=== PATIENT | female | born 1940 | race Caucasian/White ===

== ENCOUNTER 2016-06-13 09:22 | Observation (INO) | payer MEDICARE, MEDICAID ==
[2016-06-13 10:22] LABS: HEMATOCRIT 36.4 % (36.0-47.0); HEMOGLOBIN 12.4 g/dL (12.0-15.5); HGB HCT DIFFERENCE 0.8; MEAN CORPUSCULAR HGB CONC 34.1 g/dL (32.0-36.0); MEAN CORPUSCULAR VOLUME 82 fl (80-97); RED BLOOD COUNT 4.43 10^6/uL (3.72-5.28); RED CELL DISTRIBUTION WIDTH 13.6 % (11.5-14.0); WHITE BLOOD COUNT 8.3 10^3/uL (4.0-10.5)
[2016-06-13 10:40] LABS: ALANINE AMINOTRANSFERASE 38 U/L (9-52); ALBUMIN 4.3 g/dL (3.5-5.0); ALKALINE PHOSPHATASE 52 U/L (38-126); ANION GAP 13 (5-19); ASPARTATE AMINO TRANSFERASE 28 U/L (14-36); BILIRUBIN,TOTAL 0.7 mg/dL (0.2-1.3); BLOOD UREA NITROGEN 10 mg/dL (7-20); CARBON DIOXIDE 25 mmol/L (22-30); CHLORIDE 99 mmol/L (98-107); GLUCOSE 102 mg/dL (75-110); SODIUM 136.8 mmol/L (137-145); TOTAL PROTEIN 6.9 g/dL (6.3-8.2)
[2016-06-13 10:46] LABS: POTASSIUM 2.8 mmol/L (3.6-5.0)
[2016-06-13] MEDS ORDERED: ENOXAPARIN SODIUM INJ 40 MG/0.4 ML DISP.SYRIN SUBCUT ONE (11:00)
[2016-06-13] MEDS: POTASSI CL 40 MEQ/NS 1L 1,000 ML IV PRN ×2 (11:56→22:31)
[2016-06-13] MEDS ORDERED: (PENDING PHARMACY ID) (Ranitidine Hcl [Zantac] 300 MG) PO SCH (14:30)
[2016-06-13] MEDS ORDERED: (PENDING PHARMACY ID) (Valsartan/Hydrochlorothiazide [Diovan Hct 160-25 Mg Tablet] 1 TAB) PO SCH (14:30)
[2016-06-13] MEDS ORDERED: GABAPENTIN 300 MG CAPSULE PO ONE (15:00)
--- NOTE | 2016-06-13 15:16 | PDOC H&P ---
History of Present Illness Admission Date/PCP: 06/13/16 09:22 ROSLYN TOLEDO MD History of Present Illness: ALANA ROMERO is a 75 year old female, she came to the office today without any schedule appointment, she complained of diarrhea and vomiting for the last 2 days. She said she is not able to keep any food down. She was admitted for observation. The blood work revealed hypokalemia with a serum potassium of 2.8. Past Medical History Cardiac Medical History: Reports: Hyperlipidema, Hypertension Pulmonary Medical History: Reports: Chronic Obstructive Pulmonary Disease (COPD) Neurological Medical History: Denies: Seizures Endocrine Medical History: Reports: Diabetes Mellitus Type 2 - "borderline" Malignancy Medical History: Reports: Cervical Cancer - uterine cancer GI Medical History: Reports: Gastroesophageal Reflux Disease Musculoskeltal Medical History: Reports: Arthritis - back, shoulders, and neck Psychiatric Medical History: Reports: Depression - Major Depressive Disorder Past Surgical History Past Surgical History: Reports: Section, Hysterectomy, Orthopedic Surgery, Tubal Ligation Social History Smoking Status: Never Smoker Frequency of Alcohol Use: None Hx Recreational Drug Use: No Drugs: None Hx Prescription Drug Abuse: No Family History Family History: Reviewed & Not Pertinent Parental Family History Reviewed: Yes Children Family History Reviewed: Yes Sibling(s) Family History Reviewed.: Yes Medication/Allergy Home Medications: Valsartan/Hydrochlorothiazide [Diovan Hct 160-25 mg Tablet] 1 tab PO QAM Duloxetine HCl 30 mg PO BID 12/01/15 Esomeprazole Magnesium [Nexium] 40 mg PO BID 12/01/15 Gabapentin 2 tab PO TID 12/01/15 Ranitidine HCl [Zantac] 300 mg PO QAM 12/01/15 Topiramate 25 mg PO QHS 12/01/15 Loperamide HCl [Imodium 2 mg Capsule] 2 mg PO Q4HP PRN #21 cap 12/05/15 Mirtazapine 30 mg PO QHS 06/13/16 Pramipexole Di-HCl [Mirapex] 0.125 mg PO QHS 06/13/16 Allergies/Adverse Reactions: morphine [Morphine] Allergy (Verified 11/17/15 17:05) Review of Systems Constitutional: PRESENT: fatigue Eyes: ABSENT: as per HPI, visual disturbances, other Ears: ABSENT: as per HPI, hearing changes, other Cardiovascular: ABSENT: as per HPI, chest pain, dyspnea on exertion, edema, orthropnea, palpitations, other Gastrointestinal: PRESENT: diarrhea, nausea, vomiting Genitourinary: ABSENT: as per HPI, difficulty urinating, dysuria, hematuria, nocturia, other Musculoskeletal: ABSENT: as per HPI, back pain, deformity, joint swelling, muscle weakness, other Integumentary: ABSENT: as per HPI, diaphoresis, erythema, lesions, pruritus, rash, wounds, other Neurological: ABSENT: as per HPI, abnormal gait, abnormal movements, abnormal speech, confusion, convulsions, dizziness, focal weakness, frequent falls, lack of coordination, memory loss, numbness, paresthesias, restless legs, syncope, tingling, tremor(s), vertigo, weakness, other Endocrine: ABSENT: as per HPI, cold intolerance, flushing, heat intolerance, menstrual abnormalities, polydipsia, polyphagia, polyuria, other Hematologic/Lymphatic: ABSENT: as per HPI, easy bleeding, easy bruising, lymphadenopathy, other Physical Exam Vital Signs: Temp Pulse Resp BP Pulse Ox 98.3 F 98 18 140/86 H 06/13/16 10:31 06/13/16 10:31 06/13/16 10:31 06/13/16 10:31 Intake & Output 06/12/16 06/13/16 06/14/16 06:59 06:59 06:59 Weight 73.03 kg General appearance: PRESENT: no acute distress Eye exam: PRESENT: PERRLA Mouth exam: PRESENT: other - Dry mucosa Respiratory exam: PRESENT: clear to auscultation isak Cardiovascular exam: PRESENT: +S1, +S2 GI/Abdominal exam: PRESENT: soft Neurological exam: PRESENT: alert, CN II-XII grossly intact Results Laboratory Results: 06/13/16 10:14 06/13/16 10:14 06/13/16 06/13/16 10:14 10:14 WBC 8.3 RBC 4.43 Hgb 12.4 Hct 36.4 MCV 82 MCH 28.0 MCHC 34.1 RDW 13.6 Plt Count 350 Sodium 136.8 L Potassium 2.8 L* Chloride 99 Carbon Dioxide 25 Anion Gap 13 BUN 10 Creatinine 0.60 Est GFR ( Amer) > 60 Est GFR (Non-Af Amer) > 60 Glucose 102 Calcium 10.0 Total Bilirubin 0.7 AST 28 ALT 38 Alkaline Phosphatase 52 Total Protein 6.9 Albumin 4.3 Assessment & Plan - Diagnosis (1) Acute gastroenteritis Is this a current diagnosis for this admission?: YesPlan: Patient is admitted for evaluation,replace loss fluid (2) Hypokalemia Is this a current diagnosis for this admission?: YesPlan: Replace Potassium
[2016-06-13] MEDS: ONDANSETRON 4 MG TAB.RAPDIS PO PRN ×2 (15:23→22:14)
[2016-06-13] MEDS ORDERED: VALSARTAN 160 MG TABLET PO ONE (15:30)
[2016-06-13] MEDS ORDERED: HYDROCHLOROTHIAZIDE 25 MG TABLET PO ONE (15:30)
[2016-06-13] MEDS: LANSOPRAZOLE 30 MG TAB.RAP.DR PO SCH (17:37)
[2016-06-13] MEDS ORDERED: (PENDING PHARMACY ID) (Mirtazapine [Mirtazapine] 30 MG) PO SCH (22:00)
[2016-06-13] MEDS ORDERED: (PENDING PHARMACY ID) (Pramipexole Di-Hcl [Mirapex] 0.125 MG) PO SCH (22:00)
[2016-06-13] MEDS: TOPIRAMATE 25 MG TABLET PO SCH (22:27)
[2016-06-13] MEDS: GABAPENTIN 300 MG CAPSULE PO SCH (22:27)
[2016-06-13] MEDS: PRAMIPEXOLE DI-HCL 0.25 MG TABLET PO SCH (22:28)
[2016-06-13] MEDS: MIRTAZAPINE 15 MG TABLET PO SCH (22:29)
[2016-06-13] MEDS: DULOXETINE HCL 30 MG CAPSULE.DR PO SCH (22:34)
[2016-06-14] MEDS: GABAPENTIN 300 MG CAPSULE PO SCH ×3 (06:34→21:54)
[2016-06-14] MEDS: ONDANSETRON 4 MG TAB.RAPDIS PO PRN ×3 (06:35→21:56)
[2016-06-14] MEDS: POTASSI CL 40 MEQ/NS 1L 1,000 ML IV PRN (07:55)
[2016-06-14] MEDS: VALSARTAN 160 MG TABLET PO SCH (08:52)
[2016-06-14] MEDS: HYDROCHLOROTHIAZIDE 25 MG TABLET PO SCH (08:53)
[2016-06-14] MEDS: FAMOTIDINE 20 MG TABLET PO SCH (08:54)
[2016-06-14] MEDS: ENOXAPARIN SODIUM INJ 40 MG/0.4 ML DISP.SYRIN SUBCUT SCH (08:55)
[2016-06-14] MEDS: DULOXETINE HCL 30 MG CAPSULE.DR PO SCH ×2 (10:39→21:53)
[2016-06-14] MEDS: LANSOPRAZOLE 30 MG TAB.RAP.DR PO SCH ×2 (10:39→18:20)
--- NOTE | 2016-06-14 14:47 | PDOC PROGRESS REPORT ---
Subjective Progress Note for:: 06/14/16 Subjective:: Patient reported persistent diarrhea with lower abdominal pain. There is associated nausea about no vomiting. No fever or chills. No chest pain or difficulty with breathing. She remain on IV fluid with potassium replacement therapy. Patient have not given specimen for stool study since admission reporting that her stool is just water! Physical Exam Vital Signs: Temp Pulse Resp BP Pulse Ox 98.6 F 86 15 122/56 L 98 06/14/16 12:00 06/14/16 12:00 06/14/16 12:00 06/14/16 12:00 06/14/16 12:00 Intake & Output 06/13/16 06/14/16 06/15/16 06:59 06:59 06:59 Intake Total 2651 Balance 2651 Weight 73.03 kg General appearance: PRESENT: no acute distress Head exam: PRESENT: atraumatic, normocephalic Eye exam: PRESENT: conjunctiva pink, EOMI, PERRLA. ABSENT: scleral icterus Neck exam: PRESENT: full ROM. ABSENT: carotid bruit, JVD, lymphadenopathy, thyromegaly Respiratory exam: ABSENT: accessory muscle use, chest wall tenderness, clear to auscultation isak, crackles, decreased breath sounds, prolonged expiratory phas, rales, retraction, rhonchi, stridor, symmetrical, tachypnea, unlabored, wheezes , other Cardiovascular exam: PRESENT: RRR. ABSENT: diastolic murmur, rubs, systolic murmur GI/Abdominal exam: PRESENT: tenderness - RLQ and LLQ regions. ABSENT: ascites, diminished bowel sounds, distended, firm, guarding, hernia, hyperactive bowel sounds, hypoactive bowel sounds, mass, Polanco's sign, normal bowel sounds, organolmegaly, rebound, rigid, soft, other Extremities exam: PRESENT: full ROM Musculoskeletal exam: PRESENT: deformity - from multiple jpints involvement with arthritis Neurological exam: PRESENT: alert, awake, oriented to person, oriented to place , oriented to time, oriented to situation, CN II-XII grossly intact. ABSENT: motor sensory deficit Psychiatric exam: PRESENT: appropriate affect, normal mood. ABSENT: homicidal ideation, suicidal ideation Skin exam: PRESENT: dry, intact, warm. ABSENT: cyanosis, rash Results Laboratory Results: 06/13/16 10:14 06/13/16 10:14 Assessment & Plan - Diagnosis (1) Acute gastroenteritis Is this a current diagnosis for this admission?: YesPlan: Continue current supportive therapy. Obtain CBC with diff and BMP. (2) Diarrhea Qualifiers: Diarrhea type: unspecified type Qualified Code(s): R19.7 - Diarrhea, unspecified Is this a current diagnosis for this admission?: YesPlan: Emphasized provision of stool specimen to rule out infectious process. (3) Hypokalemia, gastrointestinal losses Is this a current diagnosis for this admission?: YesPlan: Obtain BMP. Continue potassium replacement therapy. 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
[2016-06-14 15:54] LABS: ABSOLUTE BASOPHILS # (AUTO) 0.1 10^3/uL (0.0-0.2); ABSOLUTE EOSINOPHILS # (AUTO) 0.1 10^3/uL (0.0-0.6); ABSOLUTE LYMPHOCYTES (AUTO) 3.2 10^3/uL (0.5-4.7); ABSOLUTE MONOCYTES (AUTO) 0.7 10^3/uL (0.1-1.4); ABSOLUTE NEUT (AUTO) 3.6 10^3/uL (1.7-8.2); EOSINOPHILS % (AUTO) 1.6 % (0-6); HEMATOCRIT 33.2 % (36.0-47.0); HEMOGLOBIN 11.3 g/dL (12.0-15.5); HGB HCT DIFFERENCE 0.7; LYMPHOCYTES % (AUTO) 41.8 % (13-45); MEAN CORPUSCULAR HEMOGLOBIN 28.5 pg (27.0-33.4); MEAN CORPUSCULAR VOLUME 84 fl (80-97); MONOCYTES % (AUTO) 8.9 % (3-13); RED BLOOD COUNT 3.97 10^6/uL (3.72-5.28); RED CELL DISTRIBUTION WIDTH 13.5 % (11.5-14.0); SEGMENTED NEUTROPHILS % (AUTO) 46.7 % (42-78); WHITE BLOOD COUNT 7.7 10^3/uL (4.0-10.5)
[2016-06-14 16:08] LABS: ANION GAP 9 (5-19); BLOOD UREA NITROGEN 9 mg/dL (7-20); CALCIUM 8.6 mg/dL (8.4-10.2); CARBON DIOXIDE 22 mmol/L (22-30); CHLORIDE 107 mmol/L (98-107); CREATININE RESULT 0.67 mg/dL (0.52-1.25); GLUCOSE 108 mg/dL (75-110); MAGNESIUM 1.6 mg/dL (1.6-2.3); POTASSIUM 3.9 mmol/L (3.6-5.0); SODIUM 138.1 mmol/L (137-145)
[2016-06-14] MEDS ORDERED: LOPERAMIDE HCL 2 MG CAPSULE PO ONE (19:15)
[2016-06-14] MEDS: MIRTAZAPINE 15 MG TABLET PO SCH (21:54)
[2016-06-14] MEDS: TOPIRAMATE 25 MG TABLET PO SCH (21:55)
[2016-06-14] MEDS: PRAMIPEXOLE DI-HCL 0.25 MG TABLET PO SCH (21:56)
[2016-06-15] MEDS: GABAPENTIN 300 MG CAPSULE PO SCH ×3 (07:16→22:21)
[2016-06-15] MEDS: ENOXAPARIN SODIUM INJ 40 MG/0.4 ML DISP.SYRIN SUBCUT SCH (09:29)
[2016-06-15] MEDS: DULOXETINE HCL 30 MG CAPSULE.DR PO SCH ×2 (09:31→22:21)
[2016-06-15] MEDS: HYDROCHLOROTHIAZIDE 25 MG TABLET PO SCH (09:31)
[2016-06-15] MEDS: FAMOTIDINE 20 MG TABLET PO SCH (09:35)
[2016-06-15] MEDS: VALSARTAN 160 MG TABLET PO SCH (09:37)
--- NOTE | 2016-06-15 09:56 | PDOC PROGRESS REPORT ---
Subjective Progress Note for:: 06/15/16 Subjective:: Patient reported some degree of improvement in her diarrhea but lower abdominal pain do persist. There is associated nausea about no vomiting. No fever or chills. No chest pain or difficulty with breathing. She remain on IV fluid with potassium replacement therapy. Her stool evaluation so far has been negative with regard to etiology of her symptoms. Physical Exam Vital Signs: Temp Pulse Resp BP Pulse Ox 97.9 F 89 16 127/79 H 98 06/15/16 04:00 06/15/16 04:00 06/15/16 04:00 06/15/16 04:00 06/15/16 04:00 Intake & Output 06/14/16 06/15/16 06/16/16 06:59 06:59 06:59 Intake Total 2651 1240 Output Total 6 Balance 2651 1234 Weight 73.03 kg Physical Exam: General appearance: PRESENT: no acute distress Head exam: PRESENT: atraumatic, normocephalic Eye exam: PRESENT: conjunctiva pink, EOMI, PERRLA. ABSENT: scleral icterus Neck exam: PRESENT: full ROM. ABSENT: carotid bruit, JVD, lymphadenopathy, thyromegaly Respiratory exam: ABSENT: accessory muscle use, chest wall tenderness, clear to auscultation isak, crackles, decreased breath sounds, prolonged expiratory phas, rales, retraction, rhonchi, stridor, symmetrical, tachypnea, unlabored, wheezes , other Cardiovascular exam: PRESENT: RRR. ABSENT: diastolic murmur, rubs, systolic murmur GI/Abdominal exam: PRESENT: tenderness - RLQ and LLQ regions. ABSENT: ascites, diminished bowel sounds, distended, firm, guarding, hernia, hyperactive bowel sounds, hypoactive bowel sounds, mass, Polanco's sign, normal bowel sounds, organolmegaly, rebound, rigid, soft, other Extremities exam: PRESENT: full ROM Musculoskeletal exam: PRESENT: deformity - from multiple jpints involvement with arthritis Neurological exam: PRESENT: alert, awake, oriented to person, oriented to place , oriented to time, oriented to situation, CN II-XII grossly intact. ABSENT: motor sensory deficit Psychiatric exam: PRESENT: appropriate affect, normal mood. ABSENT: homicidal ideation, suicidal ideation Skin exam: PRESENT: dry, intact, warm. ABSENT: cyanosis, rash Results Laboratory Results: 06/14/16 15:36 06/14/16 15:36 06/14/16 06/14/16 06/14/16 15:30 15:36 15:36 WBC 7.7 RBC 3.97 Hgb 11.3 L Hct 33.2 L MCV 84 MCH 28.5 MCHC 34.0 RDW 13.5 Plt Count 298 Seg Neutrophils % 46.7 Lymphocytes % 41.8 Monocytes % 8.9 Eosinophils % 1.6 Basophils % 1.0 Absolute Neutrophils 3.6 Absolute Lymphocytes 3.2 Absolute Monocytes 0.7 Absolute Eosinophils 0.1 Absolute Basophils 0.1 Sodium 138.1 Potassium 3.9 Chloride 107 Carbon Dioxide 22 Anion Gap 9 BUN 9 Creatinine 0.67 Est GFR ( Amer) > 60 Est GFR (Non-Af Amer) > 60 Glucose 108 Calcium 8.6 Magnesium 1.6 Stool for White Cells NO WBCs SEEN Assessment & Plan - Diagnosis (1) Acute gastroenteritis Is this a current diagnosis for this admission?: YesPlan: Continue current medication management and supportive care. (2) Diarrhea Qualifiers: Diarrhea type: unspecified type Qualified Code(s): R19.7 - Diarrhea, unspecified Is this a current diagnosis for this admission?: YesPlan: Improving per patient's report on current medication management. (3) Hypokalemia, gastrointestinal losses Is this a current diagnosis for this admission?: YesPlan: Corrected hypokalemia. Continue potassium replacement therapy in view of her persistent diarrhea. (4) Abdominal pain Qualifiers: Abdominal location: lower abdomen, unspecified Qualified Code(s): R10.30 - Lower abdominal pain, unspecified Is this a current diagnosis for this admission?: YesPlan: In view of her age and patient's claimed of no colonoscopy in the past, I will request CT abdomen and pelvic with oral and IV contrast for further evaluation. 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
[2016-06-15] MEDS: LANSOPRAZOLE 30 MG TAB.RAP.DR PO SCH ×2 (10:46→17:42)
[2016-06-15] MEDS: ONDANSETRON 4 MG TAB.RAPDIS PO PRN (10:47)
[2016-06-15] MEDS: LOPERAMIDE HCL 2 MG CAPSULE PO PRN (14:24)
[2016-06-15] MEDS: PRAMIPEXOLE DI-HCL 0.25 MG TABLET PO SCH (22:21)
[2016-06-15] MEDS: MIRTAZAPINE 15 MG TABLET PO SCH (22:21)
[2016-06-15] MEDS: TOPIRAMATE 25 MG TABLET PO SCH (22:21)
[2016-06-16] MEDS: LOPERAMIDE HCL 2 MG CAPSULE PO PRN (02:53)
[2016-06-16] MEDS: GABAPENTIN 300 MG CAPSULE PO SCH ×3 (05:56→21:51)
[2016-06-16] MEDS: POTASSI CL 40 MEQ/NS 1L 1,000 ML IV PRN (08:28)
[2016-06-16] MEDS: HYDROCHLOROTHIAZIDE 25 MG TABLET PO SCH (08:32)
[2016-06-16] MEDS: ENOXAPARIN SODIUM INJ 40 MG/0.4 ML DISP.SYRIN SUBCUT SCH (08:34)
[2016-06-16] MEDS: FAMOTIDINE 20 MG TABLET PO SCH (08:34)
[2016-06-16] MEDS: VALSARTAN 160 MG TABLET PO SCH (08:36)
--- NOTE | 2016-06-16 10:01 | Physician Advisory Note ---
Physician Advisor ProgressNote .: Pursuant to the plan for [facility], I have reviewed the medical record for this patient. Physician Advisor Statement: Possible documentation opportunities if attending agrees: 1. "hyponatremia, likely due to intravascular volume depletion" 2. "Medical necessity"- A. for continued hospitalization after 1st day - was, for example, the pt still having sufficient diarrheal output & poor po intake that she was not felt able to maintain hemodynamic stability without continued IVF support, or was she just having some mild sx that could be managed at home now that her lytes are back WNL? What complications was attending concerned could happen if this pt went home after the 1st MN? Need to "paint the picture" for non-MD reviewers who won't read between the lines. B. for abd CT - record states CT done because of age & no past colonoscopy, which sounds like it's a screening test, which is unlikely to be covered. However, if this was actually being done due to an acute concern, such as for possible underlying colon CA producing the ongoing diarrhea & abd discomfort, & this is documented explicitly rather than left to the realm of assumption, then that would support this test being appropriate during this hospitalization. As always, if concerned about any unstable VS or abnormal labs, please comment on them & note what doing about them, & please document each day the potential clinical problems you are concerned could occur if pt not kept in hospital for tx at this time. Discussion: 75yo female w/ chronic co-morbidities including DM-2, COPD, HTN, uterine/ cervical CA, depression - presented 2/10 from office w/vomiting & diarrhea x 2days, inability to keep po's down, fatigue. (+) HR 98, BP 140/86, Na 136.8, K 2.8, Hgb 12.4. Dry mucosae. Attending ordered IVF containing KCl 40 at 100, po Zofran PRN, stool cx, labs including Cdiff, fecal leukocytes testing. Status: Pt appropriately brought in for Outpt Obs for suspected acute gastroenteritis with evaluation ordered for bacterial causes. After 1st MN, attending documented persistent diarrhea & lower abd pain, nausea, but no vomiting. No stool specimen yet because "just water". (+)lower abd tenderness on exam. K was replaced to 3.9, Na back WNL. Hgb slightly lower at 11.3. HR 86, systolic BP 122. Attending note states "Acute Gastroenteritis" with plan for continuing IVF, with "risk for complications if not in hospital" - but that is a generic stock phrase, doesn't make it clear what specific complications could occur to THIS pt at THIS time if not kept in hospital, so is unfortunately not sufficient to support change to Inpatient status at this point without further elaboration. On 06/14 PM, pt had tachycardia to 94 at 17:07, & 102 at 22:00, which is concerning for lack of hemodynamic stability. HR as high as 91 on AM of 06/15 at 8:00, although BPs remain adequate. Continued abd tenderness, though no indication whether this is sufficient to require ongoing hospitalization. Attending has not documented concern about tachycardia. Attending documented ordering CT "due to age & no past colonoscopy" (see above). Tx in inpatient hospital setting medically reasonable & necessary to protect pt' s health, safety, & medical condition? This question is not sufficiently answered in current documentation without further elaboration. Current documentation is not supportive of Inpt status based on severity of illness, intensity of service, etc, but it is possible that this pt was indeed sick enough to become appropriate for Inpt status after 1st MN, depending on what further info is provided by attending on points mentioned above, Thanks for your help with documentation accuracy/specificity improvement! Lesley Albert MD [facility] Physician Advisor, Fellow of Hospital Medicine
[2016-06-16] MEDS: LANSOPRAZOLE 30 MG TAB.RAP.DR PO SCH ×2 (10:08→18:28)
[2016-06-16] MEDS: DULOXETINE HCL 30 MG CAPSULE.DR PO SCH ×2 (10:08→21:54)
[2016-06-16] MEDS: ONDANSETRON 4 MG TAB.RAPDIS PO PRN (14:27)
--- NOTE | 2016-06-16 20:18 | PDOC DISCHARGE SUMMARY ---
General - Admit/Disc Date/PCP Admission Date/Primary Care Provider: 06/13/16 09:22 ROSLYN TOLEDO MD Discharge Date: 06/16/16 - Discharge Diagnosis (1) Acute gastroenteritis Is this a current diagnosis for this admission?: Yes (2) Hypokalemia Is this a current diagnosis for this admission?: Yes (3) Abdominal pain Is this a current diagnosis for this admission?: Yes (4) Bipolar 1 disorder Is this a current diagnosis for this admission?: Yes - Additional Information Discharge Diet: As Tolerated Discharge Activity: Activity As Tolerated Home Medications: Valsartan/Hydrochlorothiazide [Diovan Hct 160-25 mg Tablet] 1 tab PO QAM Duloxetine HCl 30 mg PO BID 12/01/15 Esomeprazole Magnesium [Nexium] 40 mg PO BID 12/01/15 Ranitidine HCl [Zantac] 300 mg PO QAM 12/01/15 Mirtazapine 30 mg PO QHS 06/13/16 Pramipexole Di-HCl [Mirapex] 0.125 mg PO QHS 06/13/16 Gabapentin [Neurontin 300 mg Capsule] 600 mg PO Q8 #90 capsule 06/16/16 History of Present Illness History of Present Illness: ALANA ROMERO is a 75 year old female, she came to the office today without any schedule appointment, she complained of diarrhea and vomiting for the last 2 days. She said she is not able to keep any food down. She was admitted for observation. The blood work revealed hypokalemia with a serum potassium of 2.8. Hospital Course Hospital Course: Patient was admitted because of acute gastroenteritis, with diarrhea and vomiting that was associated hypokalemia. She was treated with IV fluid and the potassium was replaced. The stool was negative for any infective agents. Physical Exam Vital Signs: Temp Pulse Resp BP Pulse Ox 98.9 F 90 16 130/69 H 97 06/16/16 16:15 06/16/16 16:15 06/16/16 16:15 06/16/16 16:15 06/16/16 16:15 Intake & Output 06/15/16 06/16/16 06/17/16 06:59 06:59 06:59 Intake Total 1240 1020 Output Total 6 1 Balance 1234 1019 Weight 73.03 kg General appearance: PRESENT: no acute distress Eye exam: PRESENT: PERRLA Respiratory exam: PRESENT: clear to auscultation isak Cardiovascular exam: PRESENT: +S1, +S2 GI/Abdominal exam: PRESENT: soft Neurological exam: PRESENT: alert, oriented to time Results Laboratory Results: 06/14/16 15:36 06/14/16 15:36 06/14/16 15:30 Stool - Stool - Final 06/14/16 15:30 Stool - Stool Stool Culture - Final NO SALMONELLA, SHIGELLA, CAMPYLOBACTER, OR E.COLI 0157 RECOVERED. NEGATIVE FOR SHIGA TOXINS 1&2. Impressions: Abdomen/Pelvis CT 06/15/16 00:00 IMPRESSION: No acute findings in the abdomen or pelvis.
[2016-06-16] MEDS: MIRTAZAPINE 15 MG TABLET PO SCH (21:51)
[2016-06-16] MEDS: TOPIRAMATE 25 MG TABLET PO SCH (21:51)
[2016-06-16] MEDS: PRAMIPEXOLE DI-HCL 0.25 MG TABLET PO SCH (21:51)
[2016-06-17 03:50] VITALS: BP 150/69
[2016-06-17] MEDS: GABAPENTIN 300 MG CAPSULE PO SCH (05:53)
[2016-06-17] MEDS: FAMOTIDINE 20 MG TABLET PO SCH (09:26)
[2016-06-17] MEDS: DULOXETINE HCL 30 MG CAPSULE.DR PO SCH (09:26)
[2016-06-17] MEDS: HYDROCHLOROTHIAZIDE 25 MG TABLET PO SCH (09:26)
[2016-06-17] MEDS: ENOXAPARIN SODIUM INJ 40 MG/0.4 ML DISP.SYRIN SUBCUT SCH (09:26)
[2016-06-17] MEDS: LANSOPRAZOLE 30 MG TAB.RAP.DR PO SCH (09:26)
[2016-06-17] MEDS: VALSARTAN 160 MG TABLET PO SCH (09:26)
== END 2016-06-17 09:15 | disposition home or self-care (01) ==
LOC: 2N 09:22
PROVIDERS: ADMIT Internal Medicine; ATTEND Internal Medicine
DX: K52.9 Noninfective gastroenteritis and colitis, unspecified (principal); E87.6 Hypokalemia; E86.0 Dehydration; F31.9 Bipolar disorder, unspecified; I10 Essential (primary) hypertension; E78.5 Hyperlipidemia, unspecified; J44.9 Chronic obstructive pulmonary disease, unspecified; E11.9 Type 2 diabetes mellitus without complications
CPT/HCPCS: 36415 ×2; 87045; 89055; 87205; 83735; 85025; 85027; 80076; 80048 ×2; 87493 ×2; 74177; G0378 ×4; G0379; A9270 ×38; J1650 ×4; J3480 ×3; J3490; S0119

== ENCOUNTER 2016-07-11 08:57 | Emergency (ER) | payer MEDICARE, MEDICAID ==
--- NOTE | 2016-07-11 11:09 | ER Document Report ---
ED General - General Chief Complaint: Back Pain Stated Complaint: BACK PAIN Time seen by provider: 11:04 Mode of Arrival: Ambulatory Information source: Patient Notes: This is a 75-year-old female with a history of arthritis and chronic back pain who presents to the emergency room with an exacerbation of her back pain in the setting of running out of her pain medicines. The patient states that she is followed by a back surgeon in [place] and will be scheduled for surgery soon. She does have a primary care doctor (Dr. Segura) who was referred her to pain management and she has appointment there on the . She states she is been unable to sleep because of the pain. She denies any fever, chills. The patient denies any urinary incontinence or urinary retention. The patient denies any saddle anesthesia. TRAVEL OUTSIDE OF THE [place] IN LAST 30 DAYS: No - HPI Onset: Other - Patient has had back pain for years Onset/Duration: Gradual Quality of pain: Dull Severity: Moderate Pain Level: 3 Associated symptoms: denies: Nonproductive cough, Productive cough, Fever Exacerbated by: Denies Relieved by: Denies Similar symptoms previously: Yes Recently seen / treated by doctor: Yes - Related Data Allergies/Adverse Reactions: morphine [Morphine] Allergy (Verified 07/11/16 09:11) Past Medical History - General Information source: Patient - Social History Smoking Status: Never Smoker Cigarette use (# per day): No Chew tobacco use (# tins/day): No Frequency of alcohol use: None Drug Abuse: None Lives with: Alone Family History: Reviewed & Not Pertinent Patient has suicidal ideation: No Patient has homicidal ideation: No - Past Medical History Cardiac Medical History: Reports: Hx Hypercholesterolemia, Hx Hypertension Pulmonary Medical History: Reports: Hx COPD Neurological Medical History: Denies: Hx Seizures Endocrine Medical History: Reports: Hx Diabetes Mellitus Type 2 - "borderline" Renal/ Medical History: Reports: Hx Ovarian Cysts. Denies: Hx Peritoneal Dialysis Malignancy Medical History: Reports: Hx Cervical Cancer - uterine cancer GI Medical History: Reports: Hx Gastroesophageal Reflux Disease Musculoskeltal Medical History: Reports Hx Arthritis - back, shoulders, and neck , Reports Hx Musculoskeletal Deformity - Chronic back pain arthritis and back shoulder or neck Psychiatric Medical History: Reports: Hx Depression - Major Depressive Disorder Past Surgical History: Reports: Hx Section, Hx Gynecologic Surgery, Hx Hysterectomy, Hx Orthopedic Surgery, Hx Tubal Ligation - Immunizations Immunizations up to date: Yes Hx Diphtheria, Pertussis, Tetanus Vaccination: Yes Hx Pneumococcal Vaccination: 02/01/13 Review of Systems - Review of Systems Constitutional: denies: Chills, Fever EENT: No symptoms reported Cardiovascular: No symptoms reported Respiratory: No symptoms reported Gastrointestinal: No symptoms reported Genitourinary: No symptoms reported Female Genitourinary: No symptoms reported Musculoskeletal: See HPI Skin: No symptoms reported Hematologic/Lymphatic: No symptoms reported Neurological/Psychological: No symptoms reported Physical Exam - Vital signs Vitals: Temp Pulse Resp BP Pulse Ox 98.1 F 96 18 135/81 H 100 07/11/16 09:03 07/11/16 09:03 07/11/16 09:03 07/11/16 09:03 07/11/16 09:03 Notes: Physical exam: GENERAL: 75-year-old female, sitting up in the stretcher, complaining of pain, she appears to be in distress. HEAD: Atraumatic, normocephalic. EYES: Pupils equal round and reactive to light, extraocular movements intact, sclera anicteric, conjunctiva are normal. ENT: TMs normal, nares patent, oropharynx clear without exudates. Moist mucous membranes. NECK: Normal range of motion, supple without lymphadenopathy or JVD. LUNGS: Breath sounds clear to auscultation bilaterally and equal. No wheezes rales or rhonchi. HEART: Regular rate and rhythm without murmurs, rubs or gallops. ABDOMEN: Soft, normoactive bowel sounds. No tenderness to palpation. No guarding, no rebound. No masses appreciated. Back: Lower lumbar tenderness to palpation without obvious crepitus, skin changes or deformities. EXTREMITIES: Normal range of motion, no pitting or edema. No clubbing or cyanosis. NEUROLOGICAL: Cranial nerves II through XII grossly intact. Motor 5 over 5, sensory grossly intact, cerebellar good, Normal speech, normal gait. PSYCH: Normal mood, normal affect. SKIN: Warm, Dry, normal turgor, no rashes or lesions noted. Course - Vital Signs Vital signs: Temp Pulse Resp BP Pulse Ox 98.3 F 98 16 152/78 H 97 07/11/16 11:15 07/11/16 11:15 07/11/16 11:15 07/11/16 11:15 07/11/16 11:15 Discharge - Discharge Clinical Impression: exacerbation of chronic low back pain, Pre-hypertension Condition: Stable Disposition: HOME, SELF-CARE Instructions: Warm Packs ([facility]), Oral Narcotic Medication ([facility]), Low Back Pain ( [facility]) Additional Instructions: Recommendations: Follow-up with the pain clinic as planned on July 23. Follow-up with your spine surgeon as planned. See the narcotic instruction sheet Return to the emergency room for any fever (temperature greater than 100.4), difficulty ambulating or concerns her pain is getting worse. Prescriptions: Oxycodone HCl [Oxycodone HCl 10 MG Tablet] 10 mg PO Q72HP PRN #25 tablet PRN Reason: Docusate Sodium [Colace 100 mg Capsule] 100 mg PO DAILY #30 capsule Referrals: ROLSYN TOLEDO MD [Primary Care Provider] - Follow up in 3-5 days (Follow- up for repeat blood pressure check)
[2016-07-11 11:18] VITALS: BP 152/78
== END 2016-07-11 11:15 | disposition home or self-care (01) ==
LOC: ER 08:57
DX: G89.29 Other chronic pain (principal); M54.5 Low back pain; I10 Essential (primary) hypertension; E78.00 Pure hypercholesterolemia, unspecified; J44.9 Chronic obstructive pulmonary disease, unspecified; R73.03 Prediabetes; K21.9 Gastro-esophageal reflux disease without esophagitis; Z90.710 Acquired absence of both cervix and uterus; Z85.41 Personal history of malignant neoplasm of cervix uteri; Z88.6 Allergy status to analgesic agent
CPT/HCPCS: 99283

== ENCOUNTER 2016-07-25 07:27 | Emergency (ER) | payer MEDICARE, MEDICAID ==
[2016-07-25 07:54] VITALS: BP 144/77
== END 2016-07-25 10:25 | disposition home or self-care (01) ==
LOC: ER 07:27
DX: M54.9 Dorsalgia, unspecified (principal)
CPT/HCPCS: 99283

== ENCOUNTER 2016-08-25 18:00 | Observation (INO) | payer OTHER, MEDICARE, MEDICAID ==
[2016-08-25] MEDS ORDERED: MORPHINE SULFATE 10 MG/ML INJ IV ONE ×2 (18:32→19:47)
[2016-08-25] MEDS ORDERED: ONDANSETRON HCL INJ/PF 4 MG/2 ML SDV IV ONE (18:33)
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
[2016-08-25 19:09] LABS: ABSOLUTE BASOPHILS # (AUTO) 0.1 10^3/uL (0.0-0.2); ABSOLUTE EOSINOPHILS # (AUTO) 0.3 10^3/uL (0.0-0.6); ABSOLUTE LYMPHOCYTES (AUTO) 1.6 10^3/uL (0.5-4.7); ABSOLUTE MONOCYTES (AUTO) 0.6 10^3/uL (0.1-1.4); ABSOLUTE NEUT (AUTO) 7.2 10^3/uL (1.7-8.2); BASOPHILS % (AUTO) 0.6 % (0-2); EOSINOPHILS % (AUTO) 2.6 % (0-6); HEMATOCRIT 23.9 % (36.0-47.0); HEMOGLOBIN 8.1 g/dL (12.0-15.5); HGB HCT DIFFERENCE 0.4; MEAN CORPUSCULAR HGB CONC 34.1 g/dL (32.0-36.0); MEAN CORPUSCULAR VOLUME 82 fl (80-97); MONOCYTES % (AUTO) 6.5 % (3-13); RED BLOOD COUNT 2.91 10^6/uL (3.72-5.28); RED CELL DISTRIBUTION WIDTH 14.8 % (11.5-14.0); SEGMENTED NEUTROPHILS % (AUTO) 74.3 % (42-78); WHITE BLOOD COUNT 9.7 10^3/uL (4.0-10.5)
[2016-08-25 19:27] LABS: BLOOD UREA NITROGEN 18 mg/dL (7-20); CALCIUM 9.2 mg/dL (8.4-10.2); CREATININE RESULT 0.74 mg/dL (0.52-1.25); GLUCOSE 141 mg/dL (75-110)
[2016-08-25 19:28] LABS: ALANINE AMINOTRANSFERASE 36 U/L (9-52); ALBUMIN 3.6 g/dL (3.5-5.0); ALKALINE PHOSPHATASE 47 U/L (38-126); ANION GAP 14 (5-19); ASPARTATE AMINO TRANSFERASE 37 U/L (14-36); BILIRUBIN,DIRECT 0.4 mg/dL (0.0-0.4); CARBON DIOXIDE 20 mmol/L (22-30); CHLORIDE 109 mmol/L (98-107); POTASSIUM 4.2 mmol/L (3.6-5.0); SODIUM 142.6 mmol/L (137-145); TOTAL PROTEIN 6.3 g/dL (6.3-8.2)
[2016-08-25 20:42] LABS: PROTHROMBIN TIME 14.2 SEC (11.4-15.4)
[2016-08-25 22:33] LABS: APPEARANCE,URINE CLEAR; BILIRUBIN,URINE NEGATIVE (NEGATIVE); GLUCOSE, URINE NEGATIVE (NEGATIVE); KETONES,URINE NEGATIVE (NEGATIVE); LEUKOCYTE ESTERASE,URINE NEGATIVE (NEGATIVE); NITRITE,URINE NEGATIVE (NEGATIVE); PROTEIN,URINE NEGATIVE (NEGATIVE); URINE SPECIFIC GRAVITY 1.036; UROBILINOGEN,URINE NEGATIVE mg/dL (<2.0)
[2016-08-26] MEDS ORDERED: ONDANSETRON HCL INJ/PF 4 MG/2 ML SDV IV PRN (04:34)
[2016-08-26] MEDS: GABAPENTIN 300 MG CAPSULE PO SCH ×3 (05:27→22:17)
[2016-08-26] MEDS: LANSOPRAZOLE 30 MG TAB.RAP.DR PO SCH (05:27)
[2016-08-26] MEDS: OXYCODONE HCL IR 5 MG TABLET PO PRN ×3 (05:27→19:27)
[2016-08-26 07:05] LABS: ABSOLUTE EOSINOPHILS # (AUTO) 0.3 10^3/uL (0.0-0.6); ABSOLUTE LYMPHOCYTES (AUTO) 1.8 10^3/uL (0.5-4.7); ABSOLUTE MONOCYTES (AUTO) 0.7 10^3/uL (0.1-1.4); ABSOLUTE NEUT (AUTO) 7.1 10^3/uL (1.7-8.2); BASOPHILS % (AUTO) 0.4 % (0-2); EOSINOPHILS % (AUTO) 2.9 % (0-6); HEMATOCRIT 21.5 % (36.0-47.0); LYMPHOCYTES % (AUTO) 18.2 % (13-45); MEAN CORPUSCULAR HEMOGLOBIN 28.5 pg (27.0-33.4); MEAN CORPUSCULAR VOLUME 82 fl (80-97); RED BLOOD COUNT 2.63 10^6/uL (3.72-5.28); RED CELL DISTRIBUTION WIDTH 14.3 % (11.5-14.0); SEGMENTED NEUTROPHILS % (AUTO) 71.5 % (42-78); WHITE BLOOD COUNT 9.9 10^3/uL (4.0-10.5)
[2016-08-26 07:08] LABS: ANION GAP 13 (5-19); BLOOD UREA NITROGEN 14 mg/dL (7-20); CALCIUM 8.7 mg/dL (8.4-10.2); CARBON DIOXIDE 20 mmol/L (22-30); CHLORIDE 108 mmol/L (98-107); CREATININE RESULT 0.63 mg/dL (0.52-1.25); GLUCOSE 90 mg/dL (75-110); HEMOGLOBIN 7.5 g/dL (12.0-15.5); POTASSIUM 4.1 mmol/L (3.6-5.0); SODIUM 141.3 mmol/L (137-145)
[2016-08-26] MEDS: FAMOTIDINE 20 MG TABLET PO SCH ×2 (09:00→22:17)
[2016-08-26] MEDS: MULTIVITAMIN TABLET PO SCH (09:00)
[2016-08-26] MEDS: PRAMIPEXOLE DI-HCL 0.25 MG TABLET PO SCH (09:01)
[2016-08-26] MEDS: IBUPROFEN 600 MG TABLET PO PRN (09:01)
[2016-08-26] MEDS: ASCORBIC ACID 500 MG TABLET PO SCH (09:01)
[2016-08-26] MEDS: FERROUS SULFATE 325 MG TABLET PO SCH ×2 (09:01→17:17)
[2016-08-26] MEDS ORDERED: (PENDING PHARMACY ID) (Mirabegron [Myrbetriq] 50 MG) PO SCH (10:00)
[2016-08-26] MEDS: LIDOCAINE 5% (700 MG) TRANSDERMAL ADH..PATCH TP SCH (13:36)
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
[2016-08-26] MEDS: MIRTAZAPINE 15 MG TABLET PO SCH (22:17)
[2016-08-27] MEDS: OXYCODONE HCL IR 5 MG TABLET PO PRN ×6 (01:03→21:50)
[2016-08-27] MEDS: LANSOPRAZOLE 30 MG TAB.RAP.DR PO SCH (05:13)
[2016-08-27] MEDS: GABAPENTIN 300 MG CAPSULE PO SCH ×3 (05:13→21:50)
[2016-08-27 06:02] LABS: ABSOLUTE BASOPHILS # (AUTO) 0.1 10^3/uL (0.0-0.2); ABSOLUTE EOSINOPHILS # (AUTO) 0.2 10^3/uL (0.0-0.6); ABSOLUTE LYMPHOCYTES (AUTO) 1.8 10^3/uL (0.5-4.7); ABSOLUTE MONOCYTES (AUTO) 0.6 10^3/uL (0.1-1.4); ABSOLUTE NEUT (AUTO) 6.2 10^3/uL (1.7-8.2); BASOPHILS % (AUTO) 0.7 % (0-2); EOSINOPHILS % (AUTO) 2.6 % (0-6); HEMATOCRIT 24.3 % (36.0-47.0); HEMOGLOBIN 8.1 g/dL (12.0-15.5); LYMPHOCYTES % (AUTO) 19.9 % (13-45); MEAN CORPUSCULAR HEMOGLOBIN 27.9 pg (27.0-33.4); MEAN CORPUSCULAR HGB CONC 33.5 g/dL (32.0-36.0); MEAN CORPUSCULAR VOLUME 83 fl (80-97); MONOCYTES % (AUTO) 7.3 % (3-13); RED BLOOD COUNT 2.92 10^6/uL (3.72-5.28); RED CELL DISTRIBUTION WIDTH 14.3 % (11.5-14.0); SEGMENTED NEUTROPHILS % (AUTO) 69.5 % (42-78); WHITE BLOOD COUNT 8.8 10^3/uL (4.0-10.5)
[2016-08-27 06:16] LABS: ANION GAP 14 (5-19); BLOOD UREA NITROGEN 14 mg/dL (7-20); CALCIUM 9.2 mg/dL (8.4-10.2); CARBON DIOXIDE 22 mmol/L (22-30); CHLORIDE 107 mmol/L (98-107); CREATININE RESULT 0.63 mg/dL (0.52-1.25); GLUCOSE 122 mg/dL (75-110); SODIUM 142.8 mmol/L (137-145)
[2016-08-27] MEDS: FAMOTIDINE 20 MG TABLET PO SCH ×2 (09:49→21:50)
[2016-08-27] MEDS: FERROUS SULFATE 325 MG TABLET PO SCH ×2 (09:49→17:22)
[2016-08-27] MEDS: ASCORBIC ACID 500 MG TABLET PO SCH (09:49)
[2016-08-27] MEDS: PRAMIPEXOLE DI-HCL 0.25 MG TABLET PO SCH (09:49)
[2016-08-27] MEDS: MULTIVITAMIN TABLET PO SCH (09:50)
[2016-08-27] MEDS: LIDOCAINE 5% (700 MG) TRANSDERMAL ADH..PATCH TP SCH (09:50)
[2016-08-27] MEDS: IBUPROFEN 600 MG TABLET PO PRN (17:24)
--- NOTE | 2016-08-27 18:09 | PDOC PROGRESS REPORT ---
Subjective Progress Note for:: 08/27/16 Subjective:: She was admitted yesterday due to a traumatic hematoma of the buttock she continues to complain of pain there is sinus tachycardia probably due to pain Physical Exam Vital Signs: Temp Pulse Resp BP Pulse Ox 98.3 F 97 16 134/59 H 97 08/27/16 15:57 08/27/16 15:57 08/27/16 15:57 08/27/16 15:57 08/27/16 15:57 Intake & Output 08/26/16 08/27/16 08/28/16 06:59 06:59 06:59 Intake Total 115 1073 226 Output Total 360 1150 200 Balance -245 -77 26 General appearance: PRESENT: mild distress Eye exam: PRESENT: PERRLA Respiratory exam: PRESENT: clear to auscultation isak Cardiovascular exam: PRESENT: +S1, +S2 GI/Abdominal exam: PRESENT: soft Neurological exam: PRESENT: alert, CN II-XII grossly intact Results Laboratory Results: 08/27/16 05:26 08/27/16 05:26 08/27/16 08/27/16 05:26 05:26 WBC 8.8 RBC 2.92 L Hgb 8.1 L Hct 24.3 L MCV 83 MCH 27.9 MCHC 33.5 RDW 14.3 H Plt Count 314 Seg Neutrophils % 69.5 Lymphocytes % 19.9 Monocytes % 7.3 Eosinophils % 2.6 Basophils % 0.7 Absolute Neutrophils 6.2 Absolute Lymphocytes 1.8 Absolute Monocytes 0.6 Absolute Eosinophils 0.2 Absolute Basophils 0.1 Sodium 142.8 Potassium 4.0 Chloride 107 Carbon Dioxide 22 Anion Gap 14 BUN 14 Creatinine 0.63 Est GFR ( Amer) > 60 Est GFR (Non-Af Amer) > 60 Glucose 122 H Calcium 9.2 Impressions: Chest/Abdomen CTA 08/25/16 20:01 IMPRESSION: NORMAL CTA OF THE CHEST. NO PULMONARY EMBOLI. ATELECTASIS AND/OR SCARRING. NO APPARENT ACUTE FINDINGS. Abdomen/Pelvis CT 08/25/16 20:02 IMPRESSION: 1. SOFT TISSUE EDEMA VERSUS CONTUSION POSTERIOR TO THE LOWER LUMBAR SPINE AND SUPERIOR LEFT GLUTEAL REGION. 2. NONOBSTRUCTING CALYCEAL CALCULUS IN THE RIGHT KIDNEY. CORTICAL CYST IN THE RIGHT KIDNEY. 3. NO OTHER SIGNIFICANT OR ACUTE FINDING IN THE ABDOMEN OR PELVIS ON CT SCAN WITH IV CONTRAST. Assessment & Plan - Diagnosis (1) Traumatic hematoma of buttock Qualifiers: Encounter type: sequela Qualified Code(s): S30.0XXS - Contusion of lower back and pelvis, sequela Is this a current diagnosis for this admission?: Yes
[2016-08-27] MEDS: MIRTAZAPINE 15 MG TABLET PO SCH (21:50)
[2016-08-28] MEDS: IBUPROFEN 600 MG TABLET PO PRN (03:16)
[2016-08-28] MEDS: OXYCODONE HCL IR 5 MG TABLET PO PRN ×5 (03:17→23:51)
[2016-08-28 05:22] LABS: ANION GAP 12 (5-19); BLOOD UREA NITROGEN 18 mg/dL (7-20); CALCIUM 9.3 mg/dL (8.4-10.2); CARBON DIOXIDE 22 mmol/L (22-30); CHLORIDE 106 mmol/L (98-107); CREATININE RESULT 0.68 mg/dL (0.52-1.25); GLUCOSE 102 mg/dL (75-110); SODIUM 140.3 mmol/L (137-145)
[2016-08-28 05:23] LABS: ABSOLUTE EOSINOPHILS # (AUTO) 0.2 10^3/uL (0.0-0.6); ABSOLUTE LYMPHOCYTES (AUTO) 1.8 10^3/uL (0.5-4.7); ABSOLUTE MONOCYTES (AUTO) 0.8 10^3/uL (0.1-1.4); BASOPHILS % (AUTO) 0.5 % (0-2); EOSINOPHILS % (AUTO) 2.2 % (0-6); HEMATOCRIT 23.6 % (36.0-47.0); HGB HCT DIFFERENCE 0.1; LYMPHOCYTES % (AUTO) 20.3 % (13-45); MEAN CORPUSCULAR HEMOGLOBIN 27.9 pg (27.0-33.4); MEAN CORPUSCULAR HGB CONC 33.6 g/dL (32.0-36.0); MEAN CORPUSCULAR VOLUME 83 fl (80-97); MONOCYTES % (AUTO) 8.6 % (3-13); RED BLOOD COUNT 2.84 10^6/uL (3.72-5.28); RED CELL DISTRIBUTION WIDTH 15.2 % (11.5-14.0); SEGMENTED NEUTROPHILS % (AUTO) 68.4 % (42-78); WHITE BLOOD COUNT 8.8 10^3/uL (4.0-10.5)
[2016-08-28 05:26] LABS: HEMOGLOBIN 7.9 g/dL (12.0-15.5)
[2016-08-28] MEDS: GABAPENTIN 300 MG CAPSULE PO SCH ×3 (06:49→21:54)
[2016-08-28] MEDS: LANSOPRAZOLE 30 MG TAB.RAP.DR PO SCH (06:50)
[2016-08-28] MEDS: FAMOTIDINE 20 MG TABLET PO SCH ×2 (09:04→21:54)
[2016-08-28] MEDS: PRAMIPEXOLE DI-HCL 0.25 MG TABLET PO SCH (09:04)
[2016-08-28] MEDS: MULTIVITAMIN TABLET PO SCH (09:04)
[2016-08-28] MEDS: FERROUS SULFATE 325 MG TABLET PO SCH ×2 (09:04→17:28)
[2016-08-28] MEDS: ASCORBIC ACID 500 MG TABLET PO SCH (09:04)
[2016-08-28] MEDS: LIDOCAINE 5% (700 MG) TRANSDERMAL ADH..PATCH TP SCH (09:05)
--- NOTE | 2016-08-28 13:01 | Physician Advisory Note ---
Physician Advisor ProgressNote .: Pursuant to the plan for [facility], I have reviewed the medical record for this patient. Physician Advisor Statement: Possible documentation opportunities if attending agrees: 1. "Medical Necessity" - why does pt continue to need to be in the hospital? Is there a clinical reason she needs hospital at this point, or is it just because she has no phone at home? (Be sure to spell out clinical reasons!) - She remains persistently tachycardic - does this concern you? (If so, please mention it & spell out what you're thinking.) - What do you think may be the reason for the tachycardia? Is she needing more, or IV, pain med? Is she now too constipated & developing ileus? Does she have symptomatic anemia from her recent blood loss? (If so, is she orthostatic? Can she walk? Does she get CP/SOB with walking in room?, ...) Is she just anxious? 2. "Acute metabolic acidosis initially, possibly due to " 3. 08/27 progress note needs physical exam findings included. As always, if concerned about any unstable VS or abnormal labs, please comment on them & note what doing about them, & please document each day the potential clinical problems you are concerned could occur if pt not kept in hospital for tx at this time. Thanks for your help with documentation accuracy/specificity improvement! Lesley Albert MD [facility] Physician Advisor, Fellow of Hospital Medicine
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
[2016-08-28] MEDS: MIRTAZAPINE 15 MG TABLET PO SCH (21:54)
[2016-08-29] MEDS: OXYCODONE HCL IR 5 MG TABLET PO PRN ×2 (05:00→09:30)
[2016-08-29] MEDS: GABAPENTIN 300 MG CAPSULE PO SCH (06:27)
[2016-08-29] MEDS: LANSOPRAZOLE 30 MG TAB.RAP.DR PO SCH (06:27)
[2016-08-29] MEDS: FERROUS SULFATE 325 MG TABLET PO SCH (09:29)
[2016-08-29] MEDS: ASCORBIC ACID 500 MG TABLET PO SCH (09:30)
[2016-08-29] MEDS: LIDOCAINE 5% (700 MG) TRANSDERMAL ADH..PATCH TP SCH (09:30)
[2016-08-29] MEDS: MULTIVITAMIN TABLET PO SCH (09:30)
[2016-08-29] MEDS: FAMOTIDINE 20 MG TABLET PO SCH (09:30)
[2016-08-29] MEDS: PRAMIPEXOLE DI-HCL 0.25 MG TABLET PO SCH (09:32)
[2016-08-29 12:20] VITALS: BP 139/64
== END 2016-08-29 13:10 | disposition home health service (06) ==
LOC: ER 18:00 → EH 23:32 → UNDOADMOB 23:32 → 4N 08-26 03:10 → EH 08-26 03:10 → 4N 08-26 04:25
PROVIDERS: ADMIT Internal Medicine; ATTEND Internal Medicine
DX: S30.0XXS Contusion of lower back and pelvis, sequela (principal); V49.5 Passenger injured in collision with other and unspecified motor vehicles in traffic accident; R00.0 Tachycardia, unspecified; M25.552 Pain in left hip; R10.9 Unspecified abdominal pain; K21.9 Gastro-esophageal reflux disease without esophagitis; R26.9 Unspecified abnormalities of gait and mobility; M13.89 Other specified arthritis, multiple sites; Z79.818 Long term (current) use of other agents affecting estrogen receptors and estrogen levels; Z79.899 Other long term (current) drug therapy; Z60.2 Problems related to living alone; Z85.41 Personal history of malignant neoplasm of cervix uteri; Z85.42 Personal history of malignant neoplasm of other parts of uterus; Z90.710 Acquired absence of both cervix and uterus
CPT/HCPCS: 96376; 99285; 96374; 96375; 36415 ×4; 85025 ×4; 85610; 82272; 80048 ×3; 80053; 81001; 71275; 74177; G0378 ×4; J2270; J3490 ×4; J2405

== ENCOUNTER → 2016-12-17 | Outpatient (CLI) | payer MEDICARE, MEDICAID ==
[2016-12-17 15:03] LABS: ABSOLUTE BASOPHILS # (AUTO) 0.1 10^3/uL (0.0-0.2); ABSOLUTE EOSINOPHILS # (AUTO) 0.2 10^3/uL (0.0-0.6); ABSOLUTE LYMPHOCYTES (AUTO) 2.3 10^3/uL (0.5-4.7); ABSOLUTE MONOCYTES (AUTO) 0.8 10^3/uL (0.1-1.4); BASOPHILS % (AUTO) 0.9 % (0-2); EOSINOPHILS % (AUTO) 1.6 % (0-6); HEMATOCRIT 33.9 % (36.0-47.0); HEMOGLOBIN 11.5 g/dL (12.0-15.5); HGB HCT DIFFERENCE 0.6; LYMPHOCYTES % (AUTO) 22.1 % (13-45); MEAN CORPUSCULAR HEMOGLOBIN 28.1 pg (27.0-33.4); MEAN CORPUSCULAR HGB CONC 33.8 g/dL (32.0-36.0); MEAN CORPUSCULAR VOLUME 83 fl (80-97); MONOCYTES % (AUTO) 8.1 % (3-13); RED BLOOD COUNT 4.08 10^6/uL (3.72-5.28); RED CELL DISTRIBUTION WIDTH 15.2 % (11.5-14.0); SEGMENTED NEUTROPHILS % (AUTO) 67.3 % (42-78); WHITE BLOOD COUNT 10.4 10^3/uL (4.0-10.5)
== END ==
LOC: OD 14:11
PROVIDERS: ATTEND Specialist
DX: D50.9 Iron deficiency anemia, unspecified (principal); K64.4 Residual hemorrhoidal skin tags
CPT/HCPCS: 36415; 85025

== ENCOUNTER 2017-01-03 14:43 | Observation (INO) | payer MEDICARE, MEDICAID ==
--- NOTE | 2017-01-03 14:52 | ER Document Report ---
ED GI/ - General Stated Complaint: VOMITING,DIARRHEA Time Seen by Provider: 01/03/17 14:50 Mode of Arrival: Medic Information source: Patient, Emergency Med Personnel TRAVEL OUTSIDE OF THE [place] IN LAST 30 DAYS: No - HPI Patient complains to provider of: Diarrhea, Vomiting, Other - HEADACHE Onset: Other - 2 DAYS Timing/Duration: Gradual Quality of pain: Achy, Dull Severity at maximum: Moderate Severity in ED: Moderate Context: denies: Bad food, Lifting, Out of the country travel, , Recent trauma Location: Other - HEADACHE Associated symptoms: Diarrhea, Nausea, Vomiting. denies: Blood in emesis, Chest pain, Chills, Constipation, Dysuria, Fever, Shortness of breath Exacerbated by: Food Relieved by: Denies Similar symptoms previously: No Recently seen / treated by doctor: No - Related Data Allergies/Adverse Reactions: codeine Allergy (Verified 08/25/16 18:58) morphine [Morphine] Allergy (Verified 08/25/16 18:58) Past Medical History - General Information source: Patient - Social History Smoking Status: Never Smoker Cigarette use (# per day): No Chew tobacco use (# tins/day): No Smoking Education Provided: No Frequency of alcohol use: None Drug Abuse: None Lives with: Alone Family History: Reviewed & Not Pertinent Patient has suicidal ideation: No Patient has homicidal ideation: No - Past Medical History Cardiac Medical History: Reports: Hx Hypercholesterolemia, Hx Hypertension Pulmonary Medical History: Reports: Hx COPD Neurological Medical History: Denies: Hx Seizures Endocrine Medical History: Reports: Hx Diabetes Mellitus Type 2 - "borderline" Renal/ Medical History: Reports: Hx Ovarian Cysts. Denies: Hx Peritoneal Dialysis Malignancy Medical History: Reports: Hx Cervical Cancer - uterine cancer GI Medical History: Reports: Hx Gastroesophageal Reflux Disease Musculoskeltal Medical History: Reports Hx Arthritis - back, shoulders, and neck , Reports Hx Musculoskeletal Deformity - Chronic back pain arthritis and back shoulder or neck Psychiatric Medical History: Reports: Hx Depression - Major Depressive Disorder Past Surgical History: Reports: Hx Section, Hx Gynecologic Surgery, Hx Hysterectomy, Hx Orthopedic Surgery, Hx Tubal Ligation - Immunizations Immunizations up to date: Yes Hx Diphtheria, Pertussis, Tetanus Vaccination: Yes Hx Pneumococcal Vaccination: 02/01/13 Review of Systems - Review of Systems Constitutional: Weakness EENT: No symptoms reported Cardiovascular: No symptoms reported Respiratory: No symptoms reported Gastrointestinal: See HPI Genitourinary: No symptoms reported Female Genitourinary: Post menopausal Musculoskeletal: No symptoms reported Skin: No symptoms reported Neurological/Psychological: See HPI, Headaches Physical Exam - Vital signs Vitals: Temp Pulse Resp BP Pulse Ox 97.3 F 85 18 154/86 H 100 01/03/17 14:54 01/03/17 14:54 01/03/17 14:54 01/03/17 14:54 01/03/17 14:54 Interpretation: Hypertensive. No: Tachycardic, Tachypneic, Febrile - General General appearance: Appears well, Alert In distress: None - HEENT Head: Normocephalic Eyes: Normal Conjunctiva: Normal Ears: Normal Nasal: Normal Mouth/Lips: Normal Mucous membranes: Dry - MILDLY Pharynx: Normal Neck: Normal, Supple - Respiratory Respiratory status: No respiratory distress Breath sounds: Normal - Cardiovascular Rhythm: Regular Heart sounds: Normal auscultation Murmur: No - Abdominal Inspection: Normal Distension: No distension Bowel sounds: Hypoactive - Extremities General upper extremity: Normal inspection General lower extremity: Normal inspection - Neurological Neuro grossly intact: Yes Cognition: Normal Orientation: AAOx4 - Psychological Associated symptoms: Normal affect, Normal mood - Skin Skin Temperature: Warm Skin Moisture: Dry Skin Color: Normal Skin Turgor: Elastic Course - Vital Signs Vital signs: Temp Pulse Resp BP Pulse Ox 97.3 F 85 18 154/86 H 100 01/03/17 14:54 01/03/17 14:54 01/03/17 14:54 01/03/17 14:54 01/03/17 14:54 - Laboratory Result Diagrams: 01/03/17 16:04 01/03/17 16:04 Laboratory results interpreted by me: 01/03/17 01/03/17 01/03/17 16:04 16:04 16:04 Hgb 10.9 L Hct 32.2 L RDW 14.9 H PT Sodium 135.5 L Carbon Dioxide 20 L Est GFR ( Amer) 51 L Est GFR (Non-Af Amer) 42 L Direct Bilirubin 0.5 H Urine Blood SMALL H 01/03/17 16:04 Hgb Hct RDW PT 15.5 H Sodium Carbon Dioxide Est GFR ( Amer) Est GFR (Non-Af Amer) Direct Bilirubin Urine Blood - Consults DR. JAY Time consulted: 18:20 Reason for consultation: 01/03/17 18:[address] TOLEDO. Consulted provider: will see as inpatient Discharge - Discharge Clinical Impression: Dehydration, Vomiting and diarrhea Headache Qualifiers: Headache type: unspecified Headache chronicity pattern: acute headache Intractability: not intractable Qualified Code(s): R51 - Headache Condition: Good Disposition: ADMITTED INPATIENT Admitting Provider: [facility] Admitted: [facility]
[2017-01-03] MEDS ORDERED: NORMAL SALINE 1000 ML 500 ML IV ONE ×2 (15:17→18:30)
[2017-01-03] MEDS ORDERED: ONDANSETRON HCL INJ/PF 4 MG/2 ML SDV IV ONE ×2 (15:21→18:30)
[2017-01-03] MEDS ORDERED: HYDROMORPHONE HCL INJ/PF 2 MG/ML AMPULE IV ONE ×2 (15:36→18:30)
[2017-01-03 16:45] LABS: ABSOLUTE BASOPHILS # (AUTO) 0.1 10^3/uL (0.0-0.2); ABSOLUTE EOSINOPHILS # (AUTO) 0.1 10^3/uL (0.0-0.6); ABSOLUTE LYMPHOCYTES (AUTO) 1.5 10^3/uL (0.5-4.7); ABSOLUTE MONOCYTES (AUTO) 0.7 10^3/uL (0.1-1.4); BASOPHILS % (AUTO) 0.7 % (0-2); EOSINOPHILS % (AUTO) 1.6 % (0-6); HEMATOCRIT 32.2 % (36.0-47.0); HEMOGLOBIN 10.9 g/dL (12.0-15.5); HGB HCT DIFFERENCE 0.5; LYMPHOCYTES % (AUTO) 17.9 % (13-45); MEAN CORPUSCULAR HEMOGLOBIN 28.5 pg (27.0-33.4); MEAN CORPUSCULAR HGB CONC 33.9 g/dL (32.0-36.0); MEAN CORPUSCULAR VOLUME 84 fl (80-97); MONOCYTES % (AUTO) 7.9 % (3-13); RED BLOOD COUNT 3.83 10^6/uL (3.72-5.28); RED CELL DISTRIBUTION WIDTH 14.9 % (11.5-14.0); SEGMENTED NEUTROPHILS % (AUTO) 71.9 % (42-78); WHITE BLOOD COUNT 8.3 10^3/uL (4.0-10.5)
--- NOTE | 2017-01-03 16:50 | RADIOLOGY REPORT (SQ) ---
EXAM DESCRIPTION: CT HEAD WITHOUT COMPLETED DATE/TIME: 01/03/2017 4:38 pm REASON FOR STUDY: ATYPICAL H.A., N V x 2 DAYS COMPARISON: 2014. TECHNIQUE: Axial images acquired through the brain without intravenous contrast. Images reviewed wi th bone, brain and subdural windows. Images stored on PACS. All CT scanners at this facility use dose modulation, iterative reconstruction, and/or weight based d osing when appropriate to reduce radiation dose to as low as reasonably achievable (ALARA). [facility]: Dose Right [facility]: CareDose [facility]: Dose Right [facility]: Teradose 4D [facility]: Revstr RADIATION DOSE: Up-to-date CT equipment and radiation dose reduction techniques were employed. CTDIv ol: 64.6 mGy. DLP: 1163 mGy-cm. mGy. LIMITATIONS: None. FINDINGS: VENTRICLES: Prominent. CEREBRUM: No masses. No hemorrhage. No midline shift. Areas of low density in the white matter mos t likely due to chronic micro-vascular ischemic change. No evidence for acute infarction. CEREBELLUM: No masses. No hemorrhage. No alteration of density. No evidence for acute infarction. EXTRAAXIAL SPACES: Mild age-related involutional change. No fluid collections. No masses. ORBITS AND GLOBE: No intra- or extraconal masses. Normal contour of globe without masses. CALVARIUM: No fracture. PARANASAL SINUSES: No fluid levels. SOFT TISSUES: No mass or hematoma. OTHER: No other significant finding. IMPRESSION: MILD CHRONIC CHANGES OF ATROPHY AND MICROVASCULAR ISCHEMIA. NO ACUTE PROCESS. TECHNICAL DOCUMENTATION: JOB ID: [id number] Quality ID # [id number]: Final reports with documentation of one or more dose reduction techniques (e.g., Au tomated exposure control, adjustment of the mA and/or kV according to patient size, use of iterative reconstruction technique) 2010 [employer]- All Rights Reserved
[2017-01-03 17:01] LABS: APPEARANCE,URINE CLEAR; BILIRUBIN,URINE NEGATIVE (NEGATIVE); GLUCOSE, URINE NEGATIVE (NEGATIVE); KETONES,URINE NEGATIVE (NEGATIVE); LEUKOCYTE ESTERASE,URINE NEGATIVE (NEGATIVE); NITRITE,URINE NEGATIVE (NEGATIVE); PROTEIN,URINE NEGATIVE (NEGATIVE); URINE SPECIFIC GRAVITY 1.009; UROBILINOGEN,URINE NEGATIVE mg/dL (<2.0)
[2017-01-03 17:07] LABS: ALANINE AMINOTRANSFERASE 24 U/L (9-52); ALBUMIN 4.1 g/dL (3.5-5.0); ALKALINE PHOSPHATASE 56 U/L (38-126); ANION GAP 15 (5-19); ASPARTATE AMINO TRANSFERASE 25 U/L (14-36); BILIRUBIN,DIRECT 0.5 mg/dL (0.0-0.4); BILIRUBIN,TOTAL 0.7 mg/dL (0.2-1.3); BLOOD UREA NITROGEN 18 mg/dL (7-20); CALCIUM 10.2 mg/dL (8.4-10.2); CARBON DIOXIDE 20 mmol/L (22-30); CHLORIDE 101 mmol/L (98-107); CREATININE RESULT 1.24 mg/dL (0.52-1.25); GLUCOSE 100 mg/dL (75-110); POTASSIUM 4.1 mmol/L (3.6-5.0); SODIUM 135.5 mmol/L (137-145); TOTAL PROTEIN 7.4 g/dL (6.3-8.2)
[2017-01-03 17:11] LABS: PROTHROMBIN TIME 15.5 SEC (11.4-15.4)
--- NOTE | 2017-01-03 18:31 | RADIOLOGY REPORT (SQ) ---
EXAM DESCRIPTION: LUMBAR PUNCTURE COMPLETED DATE/TIME: 01/03/2017 6:11 pm REASON FOR STUDY: ATYPICAL HEADACHE, N V x 2 DAYS COMPARISON: None. FLUOROSCOPY TIME: 16 seconds 1 images saved to PACS. TECHNIQUE: Fluoroscopic guided lumbar puncture. LIMITATIONS: The patient reports being dehydrated, patient moving during procedure. PROCEDURE: After written consent and assessment were obtained, the patient was brought into the fluo roscopy room and placed prone on the table. The patient's lower back was prepped in a sterile fashio n and an entry site was selected under live fluoroscopic guidance. The entry site was anesthetized wi th 1% lidocaine. A 22 gauge needle was advanced through the skin and into the thecal sac at the level of L3-L4. After approximately 0 ml was drained, the needle was removed and a sterile bandage was thang edgar of the site. Specimens were not sent to the lab for testing. A fluoroscopic spot image was save d to PACS confirming level access. Needle placement was confirmed with fluoroscopy. The patient was asked to cough and Valsalva however no CSF egress. Fluoroscopic table was raised to 45 patient was asked to cough again. No egress of CSF. Patient unable to maintain position due to breast pain. Discussed dry tap with Dr. Crews an emergent prominent. Dr. Crews has decided to discontinue procedure FINDINGS: Dry tap IMPRESSION: Unsuccessful Lumbar puncture under fluoroscopy. No immediate complication. COMMENT: Patient medication list reviewed: Yes- Quality ID# 130:Eligible professional attests to doc umenting in the medical record they obtained, updated, or reviewed the patient's current medications. . Quality ID 145: Final reports for procedures using fluoroscopy that document radiation exposure tanesha michelle, or exposure time and number of fluorographic images (if radiation exposure indices are not avail able) TECHNICAL DOCUMENTATION: JOB ID: [id number] [employer]- All Rights Reserved
[2017-01-03] MEDS ORDERED: NORMAL SALINE 1000 ML 1,000 ML IV PRN (18:55)
[2017-01-03] MEDS ORDERED: IPRATROPIUM/ALBUTEROL 0.5-2.5 MG/3 ML AMPUL NEB PRN (19:44)
--- NOTE | 2017-01-03 20:04 | RADIOLOGY REPORT (SQ) ---
EXAM DESCRIPTION: MRA HEAD WITHOUT; MRI HEAD WITHOUT COMPLETED DATE/TIME: 01/03/2017 7:38 pm REASON FOR STUDY: HEADACHE, N V COMPARISON: CT brain from earlier. This exam qualifies as a separate session for this patient's imaging care and occurred 1.5 hours aft er the previous session of cross-sectional imaging care. TECHNIQUE: Multiplanar imaging includes non-contrasted T1, T2, FLAIR, and diffusion with ADC map seq uences. Imaging of the iliamna Hurt with 3D [id number]. Source and MIP images reviewed. Images stored on PACS. LIMITATIONS: Mild to moderately limited by motion artifact on some of the sequences. FINDINGS: ANATOMY: No anomalies. Normal vascular flow voids. Pituitary fossa normal. CSF SPACES: Normal in size and contour. No hemorrhage. CEREBRUM: Sulci and gyri normal in size and contour. Normal white matter signal on FLAIR imaging. No evidence of hemorrhage, mass, or extraaxial fluid collection. POSTERIOR FOSSA: No signal alteration. No hemorrhage. No edema, masses or mass effect. Internal jimmy tory canals, cerebello-pontine angles, mastoids normal. DIFFUSION IMAGING: Negative for acute or sub-acute infarction. ORBITS: No masses. Globes normal. PARANASAL SINUSES: No fluid levels. Mucosa normal. OTHER: No other significant finding. MRA A COW: No aneurysm. No high-grade stenosis or occlusion detected. IMPRESSION: Limited by motion. No acute intracranial abnormality. No evidence of recent CVA. MRA demonstrates no evidence of gross occlusion or stenosis or aneurysm. EVIDENCE OF ACUTE STROKE: NO. TECHNICAL DOCUMENTATION: JOB ID: [id number] [employer]- All Rights Reserved
--- NOTE | 2017-01-03 20:04 | RADIOLOGY REPORT (SQ) ---
EXAM DESCRIPTION: MRA HEAD WITHOUT; MRI HEAD WITHOUT COMPLETED DATE/TIME: 01/03/2017 7:38 pm REASON FOR STUDY: HEADACHE, N V COMPARISON: CT brain from earlier. This exam qualifies as a separate session for this patient's imaging care and occurred 1.5 hours aft er the previous session of cross-sectional imaging care. TECHNIQUE: Multiplanar imaging includes non-contrasted T1, T2, FLAIR, and diffusion with ADC map seq uences. Imaging of the nikolski Hurt with 3D [id number]. Source and MIP images reviewed. Images stored on PACS. LIMITATIONS: Mild to moderately limited by motion artifact on some of the sequences. FINDINGS: ANATOMY: No anomalies. Normal vascular flow voids. Pituitary fossa normal. CSF SPACES: Normal in size and contour. No hemorrhage. CEREBRUM: Sulci and gyri normal in size and contour. Normal white matter signal on FLAIR imaging. No evidence of hemorrhage, mass, or extraaxial fluid collection. POSTERIOR FOSSA: No signal alteration. No hemorrhage. No edema, masses or mass effect. Internal jimmy tory canals, cerebello-pontine angles, mastoids normal. DIFFUSION IMAGING: Negative for acute or sub-acute infarction. ORBITS: No masses. Globes normal. PARANASAL SINUSES: No fluid levels. Mucosa normal. OTHER: No other significant finding. MRA A COW: No aneurysm. No high-grade stenosis or occlusion detected. IMPRESSION: Limited by motion. No acute intracranial abnormality. No evidence of recent CVA. MRA demonstrates no evidence of gross occlusion or stenosis or aneurysm. EVIDENCE OF ACUTE STROKE: NO. TECHNICAL DOCUMENTATION: JOB ID: [id number] [employer]- All Rights Reserved
--- NOTE | 2017-01-03 21:07 | HISTORY AND PHYSICAL E ---
History and Physical NAME: ALANA ROMERO : 1940 AGE: 76Y ADMITTED: 01/03/2017 ROOM: ED14 CHIEF COMPLAINT: Nausea, vomiting, and headache. HISTORY OF PRESENT ILLNESS: This is a 76-year-old female with a significant history of bipolar and history of hypertension with several hospital admissions for nausea, vomiting and gastroenteritis. The patient was seen by Dr. Benton for endoscopy and scheduled colonoscopy. She came to the emergency department with complaints of vomiting and diarrhea for the last couple of days and patient is complaining of severe headaches. In the emergency department the patient had initial workup including a CT of the head which was done and was negative. The patient's initial blood work was all stable and patient at this point went for a lumbar puncture but unable to successfully do it. It is very dry and according to the ER physician, it looks like more the patient is dehydrated. When I saw the patient, the patient was feeling okay. The patient initially did have a little bit of nausea and vomiting but no abdominal pain. The patient is at this point is admitted to [facility] for further evaluation and treatment. The patient is currently going for MRI and MRA of the head to further evaluate. PAST MEDICAL HISTORY: 1. History of hyperlipidemia. 2. History of hypertension. 3. History of COPD. 4. History of stroke and seizure disorder. 5. History of diabetes, borderline. 6. History of ovarian cyst. 7. History of cervical cancer. 8. History of gastroesophageal reflux disorder. 9. History of arthritis in back, shoulder and neck. 10. History of musculoskeletal deformities. 11. Chronic back pain. 12. Past psychiatric history of major depression and bipolar. PAST SURGICAL HISTORY: 1. History of . 2. Other ROOM SERVICE RUNNER surgery, hysterectomy, *------*, tubal ligation. REVIEW OF SYSTEMS: As above, all other pertinents are negative. PHYSICAL EXAMINATION: VITAL SIGNS: Blood pressure was 154/86, temperature 97.3, pulse 85, respirations 18, 02 saturation is 100% on room air. GENERAL: The patient is generally alert, awake, oriented x3, no acute distress. HEENT: Normocephalic. PERRLA. LUNGS: No wheezing, no rales, no rhonchi. HEART: S1 and S2 are present. ABDOMEN: Soft. Bowel sounds present. EXTREMITIES: No edema. The patient moves all 4 extremities. NEUROLOGIC: Cranial nerves are grossly intact. There are no focal weakness seen. The patient's cerebral findings are all normal. LABORATORY DATA: WBC is 8.3, hemoglobin 10.9, platelets 363,000. Chemistries: Sodium is 135, potassium 4.1, BUN 18, creatinine 1.24. The patient's AST and ALT are within normal limits. The patient's albumin is 4.1. Lipase is 27. Urine small in the blood. Other than that, INR is 1.15, PTT is 31.8. The patient's head CT was done which shows mild chronic atrophic microvascular, no acute process is seen. The patient's EKG is normal sinus rhythm. Review of other records, has recently been seen by Dr. Benton and patient had an endoscopy for active bleed, but patient currently denied any bleeding and colonoscopy was done also. Endoscopy was done last year by Dr. Arreaga and was all stable. ASSESSMENT: 1. Nausea, vomiting and diarrhea with possible acute gastroenteritis. 2. Dehydration. 3. Headache. 4. Hypertension. 5. Chronic obstructive pulmonary disease. 6. Hyperlipidemia. 7. History of depression and bipolar disorder. PLAN: Admit the patient in the IMCU. Will wait for MRI/MRA of the head, get CT of the abdomen and pelvis without contrast and will give IV fluids and get a stool for C. difficile and other cultures and continue to monitor the patient at this point. More than 35 minutes spent examining the patient in the emergency department. I hope the patient continues to be improved. DICTATING PHYSICIAN: SOURAV JAY M.D. [id number] PHY#: [id number] 1949 ID: [id number] JOB#: [id number] ACCT: [id number] cc:SOURAV JAY M.D. >
--- NOTE | 2017-01-03 21:42 | RADIOLOGY REPORT (SQ) ---
EXAM DESCRIPTION: CT ABD/PELVIS NO ORAL OR IV COMPLETED DATE/TIME: 01/03/2017 9:25 pm REASON FOR STUDY: abd pain COMPARISON: 06/15/2016 TECHNIQUE: CT scan of the abdomen and pelvis performed without intravenous or oral contrast. Images reviewed with lung, soft tissue, and bone windows. Reconstructed coronal and sagittal MPR images revi ewed. All images stored on PACS. All CT scanners at this facility use dose modulation, iterative reconstruction, and/or weight based d osing when appropriate to reduce radiation dose to as low as reasonably achievable (ALARA). [facility]: Dose Right [facility]: CareDose [facility]: Dose Right [facility]: Teradose 4D [facility]: Hammerless RADIATION DOSE: Up-to-date CT equipment and radiation dose reduction techniques were employed. CTDIv ol: 13.0 mGy. DLP: 651 mGy-cm.mGy. LIMITATIONS: None. FINDINGS: LOWER CHEST: No significant findings. No nodules or infiltrates. NON-CONTRASTED LIVER, SPLEEN, ADRENALS: Evaluation limited by lack of IV contrast. No identified sign ificant masses. PANCREAS: No masses. No peripancreatic inflammatory changes. GALLBLADDER: Distended. No calcified stones or surrounding fluid or wall thickening evident. RIGHT KIDNEY AND URETER: Punctate nonobstructing stone in the lower pole. Mild extrarenal pelvis wit h slight fullness in the proximal ureter but no discrete obstructing stones. Chronic appearance. LEFT KIDNEY AND URETER: No solid masses. No significant calcification. No hydronephrosis or hydrouret er. AORTA AND RETROPERITONEUM: No aneurysm. No retroperitoneal masses or adenopathy. BOWEL AND PERITONEAL CAVITY: No obvious masses or inflammatory changes. No free fluid. APPENDIX: Not visualized. PELVIS, BLADDER, AND ABDOMINAL WALL:No abnormal masses. No free fluid. Bladder normal. BONES: No significant findings. OTHER: No other significant finding. IMPRESSION: 1. Nonobstructive right nephrolithiasis. 2. Distended gallbladder but no CT evidence of acute cholecystitis. TECHNICAL DOCUMENTATION: JOB ID: [id number] Quality ID # [id number]: Final reports with documentation of one or more dose reduction techniques (e.g., Au tomated exposure control, adjustment of the mA and/or kV according to patient size, use of iterative reconstruction technique) 2010 [employer]- All Rights Reserved
[2017-01-03] MEDS: OXYCODONE-ACETAMINOPHEN 5-325 MG TABLET PO PRN (22:41)
[2017-01-03] MEDS: ONDANSETRON HCL INJ/PF 4 MG/2 ML SDV IV PRN (22:41)
--- NOTE | 2017-01-03 23:16 | EKG REPORT ---
SEVERITY:- ABNORMAL ECG - SINUS RHYTHM LEFT AXIS DEVIATION PROBABLE LEFT VENTRICULAR HYPERTROPHY : Confirmed by: Nick Kern 03-Jan-2017 23:15:32
[2017-01-04] MEDS: ONDANSETRON HCL INJ/PF 4 MG/2 ML SDV IV PRN ×4 (02:23→21:49)
[2017-01-04] MEDS: OXYCODONE-ACETAMINOPHEN 5-325 MG TABLET PO PRN ×4 (04:12→22:09)
[2017-01-04 05:44] LABS: ABSOLUTE BASOPHILS # (AUTO) 0.1 10^3/uL (0.0-0.2); ABSOLUTE EOSINOPHILS # (AUTO) 0.2 10^3/uL (0.0-0.6); ABSOLUTE LYMPHOCYTES (AUTO) 1.5 10^3/uL (0.5-4.7); ABSOLUTE MONOCYTES (AUTO) 0.8 10^3/uL (0.1-1.4); ABSOLUTE NEUT (AUTO) 6.5 10^3/uL (1.7-8.2); BASOPHILS % (AUTO) 0.6 % (0-2); EOSINOPHILS % (AUTO) 1.7 % (0-6); HEMATOCRIT 30.2 % (36.0-47.0); HEMOGLOBIN 10.5 g/dL (12.0-15.5); HGB HCT DIFFERENCE 1.3; LYMPHOCYTES % (AUTO) 16.8 % (13-45); MEAN CORPUSCULAR HEMOGLOBIN 28.4 pg (27.0-33.4); MEAN CORPUSCULAR HGB CONC 34.6 g/dL (32.0-36.0); MEAN CORPUSCULAR VOLUME 82 fl (80-97); MONOCYTES % (AUTO) 8.5 % (3-13); RED BLOOD COUNT 3.68 10^6/uL (3.72-5.28); RED CELL DISTRIBUTION WIDTH 14.8 % (11.5-14.0); SEGMENTED NEUTROPHILS % (AUTO) 72.4 % (42-78)
[2017-01-04 05:55] LABS: ALANINE AMINOTRANSFERASE 26 U/L (9-52); ALBUMIN 3.8 g/dL (3.5-5.0); ALKALINE PHOSPHATASE 51 U/L (38-126); ANION GAP 14 (5-19); ASPARTATE AMINO TRANSFERASE 22 U/L (14-36); BILIRUBIN,DIRECT 0.4 mg/dL (0.0-0.4); BILIRUBIN,TOTAL 0.7 mg/dL (0.2-1.3); BLOOD UREA NITROGEN 11 mg/dL (7-20); CALCIUM 9.4 mg/dL (8.4-10.2); CARBON DIOXIDE 17 mmol/L (22-30); CHLORIDE 107 mmol/L (98-107); CREATININE RESULT 0.93 mg/dL (0.52-1.25); GLUCOSE 83 mg/dL (75-110); POTASSIUM 3.2 mmol/L (3.6-5.0); SODIUM 138.3 mmol/L (137-145); TOTAL PROTEIN 6.9 g/dL (6.3-8.2)
[2017-01-04] MEDS: LANSOPRAZOLE 15 MG TAB.RAP.DR PO SCH ×2 (06:02→16:39)
[2017-01-04] MEDS ORDERED: POTASSIUM CHLORIDE 10 MEQ TABLET.SA PO ONE (06:46)
[2017-01-04] MEDS ORDERED: NORMAL SALINE 1000 ML 1,000 ML IV PRN (09:34)
--- NOTE | 2017-01-04 09:48 | PDOC PROGRESS REPORT ---
Subjective Progress Note for:: 01/04/17 Subjective:: Patient is currently doing fair. Patient's MRI and MRA of the head is all negative Consider a more issue with the pain medications was constantly asking about that oxycodone Patient have a some still nausea after eating the potassium tablet Patient's CT of the abdomen and pelvis showed some distended gallbladder but no cholecystitis Physical Exam Vital Signs: Temp Pulse Resp BP Pulse Ox 98.4 F 76 18 135/66 H 98 01/04/17 07:43 01/04/17 09:00 01/04/17 09:00 01/04/17 07:43 01/04/17 09:00 Intake & Output 01/03/17 01/04/17 01/05/17 06:59 06:59 06:59 Intake Total 704 Output Total 1000 Balance -296 Weight 76.6 kg General appearance: PRESENT: no acute distress, well-developed, well-nourished Head exam: PRESENT: atraumatic, normocephalic Eye exam: PRESENT: conjunctiva pink, EOMI, PERRLA. ABSENT: scleral icterus Ear exam: PRESENT: normal external ear exam Mouth exam: PRESENT: moist, tongue midline Neck exam: PRESENT: full ROM. ABSENT: carotid bruit, JVD, lymphadenopathy, thyromegaly Respiratory exam: PRESENT: clear to auscultation isak Cardiovascular exam: PRESENT: RRR. ABSENT: diastolic murmur, rubs, systolic murmur Pulses: PRESENT: normal dorsalis pedis pul, +2 pedal pulses bilateral Vascular exam: PRESENT: normal capillary refill GI/Abdominal exam: PRESENT: normal bowel sounds, soft. ABSENT: distended, guarding, mass, organolmegaly, rebound, tenderness Rectal exam: PRESENT: deferred Neurological exam: PRESENT: alert, awake, oriented to person, oriented to place , oriented to time, oriented to situation, CN II-XII grossly intact. ABSENT: motor sensory deficit Psychiatric exam: PRESENT: appropriate affect, normal mood. ABSENT: homicidal ideation, suicidal ideation Skin exam: PRESENT: dry, intact, warm. ABSENT: cyanosis, rash Results Laboratory Results: 01/04/17 05:24 01/04/17 05:24 01/04/17 01/04/17 05:24 05:24 WBC 9.0 RBC 3.68 L Hgb 10.5 L Hct 30.2 L MCV 82 MCH 28.4 MCHC 34.6 RDW 14.8 H Plt Count 360 Seg Neutrophils % 72.4 Lymphocytes % 16.8 Monocytes % 8.5 Eosinophils % 1.7 Basophils % 0.6 Absolute Neutrophils 6.5 Absolute Lymphocytes 1.5 Absolute Monocytes 0.8 Absolute Eosinophils 0.2 Absolute Basophils 0.1 Sodium 138.3 Potassium 3.2 L Chloride 107 Carbon Dioxide 17 L Anion Gap 14 BUN 11 Creatinine 0.93 Est GFR ( Amer) > 60 Est GFR (Non-Af Amer) 58 L Glucose 83 Calcium 9.4 Total Bilirubin 0.7 AST 22 ALT 26 Alkaline Phosphatase 51 Total Protein 6.9 Albumin 3.8 Impressions: Abdomen/Pelvis CT 01/03/17 00:00 IMPRESSION: 1. Nonobstructive right nephrolithiasis. 2. Distended gallbladder but no CT evidence of acute cholecystitis. Lumbar Puncture 01/03/17 15:18 IMPRESSION: Unsuccessful Lumbar puncture under fluoroscopy. No immediate complication. Head CT 01/03/17 15:19 IMPRESSION: MILD CHRONIC CHANGES OF ATROPHY AND MICROVASCULAR ISCHEMIA. NO ACUTE PROCESS. Brain MRI with MRA 01/03/17 18:19 IMPRESSION: Limited by motion. No acute intracranial abnormality. No evidence of recent CVA. MRA demonstrates no evidence of gross occlusion or stenosis or aneurysm. EVIDENCE OF ACUTE STROKE: NO. Head MRI 01/03/17 18:19 IMPRESSION: Limited by motion. No acute intracranial abnormality. No evidence of recent CVA. MRA demonstrates no evidence of gross occlusion or stenosis or aneurysm. EVIDENCE OF ACUTE STROKE: NO. Assessment & Plan - Diagnosis (1) Dehydration Is this a current diagnosis for this admission?: Yes Plan: Currently IV fluid (2) Headache Qualifiers: Headache type: unspecified Headache chronicity pattern: acute headache Intractability: not intractable Qualified Code(s): R51 - Headache Is this a current diagnosis for this admission?: Yes Plan: All workup negative but patient's currently denied any headache at the most likely a musculoskeletal issues (3) Vomiting and diarrhea Is this a current diagnosis for this admission?: Yes Plan: I do not think anything in the hospital except the patient's taking potassium tablets through up Will work of the gallbladder (4) Abdominal pain Qualifiers: Is this a current diagnosis for this admission?: Yes Plan: We will get the ultrasound of the abdomen (5) Bipolar 1 disorder Is this a current diagnosis for this admission?: Yes (6) Hypokalemia Is this a current diagnosis for this admission?: Yes Plan: Replace the IV potassiums - Time Time Spent with patient: 15-24 minutes Medications reviewed and adjusted accordingly: Yes Anticipated discharge: Home Within: Other - Inpatient Certification Medical Necessity: Need For IV Fluids Post Hospital Care: D/C Sales Engineering Manager Documentation - Plan Summary Plan Summary: Today's will get the ultrasound of the abdomen to rule out any gallbladder issues repeat the potassium in the morning and discussed with the patient's pain medications also have a some side effect to use only as needed
[2017-01-04] MEDS ORDERED: POTASSIUM CHLORIDE 20 MEQ/50 ML RTU IV SCH (10:00)
[2017-01-04] MEDS: DOCUSATE SODIUM 100 MG CAPSULE PO SCH ×2 (10:27→17:37)
[2017-01-04] MEDS: ENOXAPARIN SODIUM INJ 40 MG/0.4 ML DISP.SYRIN SUBCUT SCH (10:37)
[2017-01-04] MEDS: POTASSI CL 20 MEQ/NS 1L 1000 ML IV PRN (11:51)
--- NOTE | 2017-01-04 16:54 | RADIOLOGY REPORT (SQ) ---
EXAM DESCRIPTION: U/S ABDOMEN COMPLETE W/O DOP COMPLETED DATE/TIME: 01/04/2017 4:41 pm REASON FOR STUDY: n/v/gallblader distension COMPARISON: CT abdomen pelvis dated 01/03/2017 TECHNIQUE: Dynamic and static grayscale images acquired of the abdomen and recorded on PACS. Additio nal selected color Doppler and spectral images recorded. LIMITATIONS: None. FINDINGS: PANCREAS: Limited visualization. No gross abnormalities. LIVER: Echotexture is coarse with increased echogenicity consistent with fatty infiltration. LIVER VASCULATURE: Normal directional flow of the main portal vein and hepatic veins. GALLBLADDER: There is gallbladder sludge. No wall thickening. Possible pericholecystic fluid. Furt her evaluation with hepatobiliary scanning may be helpful for further evaluation. There are no stone s. ULTRASOUND-DETECTED CHAVARRIA'S SIGN: Negative. INTRAHEPATIC DUCTS AND COMMON DUCT: CBD and intrahepatic ducts normal caliber. No filling defects. INFERIOR VENA CAVA: Normal flow. AORTA: No aneurysm. RIGHT KIDNEY: Normal size. Normal echogenicity. No solid or suspicious masses. No hydronephrosis. No calcifications. LEFT KIDNEY: Normal size. Normal echogenicity. No solid or suspicious masses. No hydronephrosis. No calcifications. SPLEEN:Normal size. No solid masses. PERITONEAL AND PLEURAL SPACES: No ascites or effusions. OTHER: No other significant finding. IMPRESSION: 1. Distended gallbladder with possible pericholecystic fluid. Negative sonographic Mur phy sign. Recommend further evaluation with hepatobiliary scan. 2. Fatty infiltrated liver. TECHNICAL DOCUMENTATION: JOB ID: [id number] [employer]- All Rights Reserved
[2017-01-05] MEDS: POTASSI CL 20 MEQ/NS 1L 1000 ML IV PRN (02:45)
[2017-01-05] MEDS: ONDANSETRON HCL INJ/PF 4 MG/2 ML SDV IV PRN ×5 (02:55→22:34)
[2017-01-05 05:03] LABS: ABSOLUTE BASOPHILS # (AUTO) 0.1 10^3/uL (0.0-0.2); ABSOLUTE EOSINOPHILS # (AUTO) 0.1 10^3/uL (0.0-0.6); ABSOLUTE LYMPHOCYTES (AUTO) 1.8 10^3/uL (0.5-4.7); ABSOLUTE MONOCYTES (AUTO) 0.6 10^3/uL (0.1-1.4); ABSOLUTE NEUT (AUTO) 5.3 10^3/uL (1.7-8.2); BASOPHILS % (AUTO) 1.3 % (0-2); HEMATOCRIT 33.5 % (36.0-47.0); HEMOGLOBIN 11.6 g/dL (12.0-15.5); HGB HCT DIFFERENCE 1.3; LYMPHOCYTES % (AUTO) 22.5 % (13-45); MEAN CORPUSCULAR HEMOGLOBIN 28.6 pg (27.0-33.4); MEAN CORPUSCULAR HGB CONC 34.7 g/dL (32.0-36.0); MEAN CORPUSCULAR VOLUME 82 fl (80-97); RED BLOOD COUNT 4.06 10^6/uL (3.72-5.28); RED CELL DISTRIBUTION WIDTH 14.6 % (11.5-14.0); SEGMENTED NEUTROPHILS % (AUTO) 67.2 % (42-78); WHITE BLOOD COUNT 7.9 10^3/uL (4.0-10.5)
[2017-01-05 05:17] LABS: ALANINE AMINOTRANSFERASE 17 U/L (9-52); ALBUMIN 3.5 g/dL (3.5-5.0); ALKALINE PHOSPHATASE 51 U/L (38-126); ANION GAP 14 (5-19); ASPARTATE AMINO TRANSFERASE 21 U/L (14-36); BILIRUBIN,DIRECT 0.5 mg/dL (0.0-0.4); BILIRUBIN,TOTAL 0.7 mg/dL (0.2-1.3); BLOOD UREA NITROGEN 8 mg/dL (7-20); CALCIUM 9.1 mg/dL (8.4-10.2); CARBON DIOXIDE 17 mmol/L (22-30); CHLORIDE 108 mmol/L (98-107); GLUCOSE 72 mg/dL (75-110); POTASSIUM 3.7 mmol/L (3.6-5.0); SODIUM 139.3 mmol/L (137-145); TOTAL PROTEIN 6.4 g/dL (6.3-8.2)
[2017-01-05] MEDS: OXYCODONE-ACETAMINOPHEN 5-325 MG TABLET PO PRN (05:46)
[2017-01-05] MEDS: LANSOPRAZOLE 15 MG TAB.RAP.DR PO SCH ×2 (05:47→16:59)
[2017-01-05] MEDS: DOCUSATE SODIUM 100 MG CAPSULE PO SCH ×2 (09:49→17:01)
[2017-01-05] MEDS: ENOXAPARIN SODIUM INJ 40 MG/0.4 ML DISP.SYRIN SUBCUT SCH (09:49)
[2017-01-05] MEDS ORDERED: POTASSI CL 20 MEQ/NS 1L 1,000 ML IV PRN (09:58)
--- NOTE | 2017-01-05 10:41 | PDOC PROGRESS REPORT ---
Subjective Progress Note for:: 01/05/17 Subjective:: Patient is currently doing fair. Patient ultrasound of the abdomen suggest no acute cholecystitis was suggested order the HIDA scans Potassium is all normal Denied any headache denied any chest pain Still having some nausea feeling Physical Exam Vital Signs: Temp Pulse Resp BP Pulse Ox 98.3 F 84 19 141/80 H 94 01/05/17 07:41 01/05/17 07:41 01/05/17 07:41 01/05/17 07:41 01/05/17 07:41 Intake & Output 01/04/17 01/05/17 01/06/17 06:59 06:59 06:59 Intake Total 704 2120 Output Total 1000 3000 Balance -296 -880 Weight 76.6 kg 79.7 kg General appearance: PRESENT: no acute distress, well-developed, well-nourished Head exam: PRESENT: atraumatic, normocephalic Eye exam: PRESENT: conjunctiva pink, EOMI, PERRLA. ABSENT: scleral icterus Ear exam: PRESENT: normal external ear exam Mouth exam: PRESENT: moist, tongue midline Neck exam: PRESENT: full ROM. ABSENT: carotid bruit, JVD, lymphadenopathy, thyromegaly Respiratory exam: PRESENT: clear to auscultation isak Cardiovascular exam: PRESENT: RRR. ABSENT: diastolic murmur, rubs, systolic murmur Pulses: PRESENT: normal dorsalis pedis pul, +2 pedal pulses bilateral Vascular exam: PRESENT: normal capillary refill GI/Abdominal exam: PRESENT: normal bowel sounds, soft. ABSENT: distended, guarding, mass, organolmegaly, rebound, tenderness Rectal exam: PRESENT: deferred Neurological exam: PRESENT: alert, awake, oriented to person, oriented to place , oriented to time, oriented to situation, CN II-XII grossly intact. ABSENT: motor sensory deficit Psychiatric exam: PRESENT: appropriate affect, normal mood. ABSENT: homicidal ideation, suicidal ideation Skin exam: PRESENT: dry, intact, warm. ABSENT: cyanosis, rash Results Laboratory Results: 01/05/17 04:08 01/05/17 04:08 01/04/17 01/05/17 01/05/17 11:08 04:08 04:08 WBC 7.9 RBC 4.06 Hgb 11.6 L Hct 33.5 L MCV 82 MCH 28.6 MCHC 34.7 RDW 14.6 H Plt Count 336 Seg Neutrophils % 67.2 Lymphocytes % 22.5 Monocytes % 8.0 Eosinophils % 1.0 Basophils % 1.3 Absolute Neutrophils 5.3 Absolute Lymphocytes 1.8 Absolute Monocytes 0.6 Absolute Eosinophils 0.1 Absolute Basophils 0.1 Sodium 139.3 Potassium 3.7 Chloride 108 H Carbon Dioxide 17 L Anion Gap 14 BUN 8 Creatinine 0.70 Est GFR ( Amer) > 60 Est GFR (Non-Af Amer) > 60 Glucose 72 L Calcium 9.1 Total Bilirubin 0.7 AST 21 ALT 17 Alkaline Phosphatase 51 Total Protein 6.4 Albumin 3.5 Stool Occult Blood NEGATIVE 01/03/17 22:30 Clean Catch Midstream Urine Culture - Final NO GROWTH 2 DAYS Impressions: Abdomen/Pelvis CT 01/03/17 00:00 IMPRESSION: 1. Nonobstructive right nephrolithiasis. 2. Distended gallbladder but no CT evidence of acute cholecystitis. Lumbar Puncture 01/03/17 15:18 IMPRESSION: Unsuccessful Lumbar puncture under fluoroscopy. No immediate complication. Head CT 01/03/17 15:19 IMPRESSION: MILD CHRONIC CHANGES OF ATROPHY AND MICROVASCULAR ISCHEMIA. NO ACUTE PROCESS. Brain MRI with MRA 01/03/17 18:19 IMPRESSION: Limited by motion. No acute intracranial abnormality. No evidence of recent CVA. MRA demonstrates no evidence of gross occlusion or stenosis or aneurysm. EVIDENCE OF ACUTE STROKE: NO. Head MRI 01/03/17 18:19 IMPRESSION: Limited by motion. No acute intracranial abnormality. No evidence of recent CVA. MRA demonstrates no evidence of gross occlusion or stenosis or aneurysm. EVIDENCE OF ACUTE STROKE: NO. Abdomen Ultrasound 01/04/17 00:00 IMPRESSION: 1. Distended gallbladder with possible pericholecystic fluid. Negative sonographic Polanco sign. Recommend further evaluation with hepatobiliary scan. 2. Fatty infiltrated liver. Assessment & Plan - Diagnosis (1) Dehydration Is this a current diagnosis for this admission?: Yes Plan: Down the IV fluid (2) Headache Qualifiers: Headache type: unspecified Headache chronicity pattern: acute headache Intractability: not intractable Qualified Code(s): R51 - Headache Is this a current diagnosis for this admission?: Yes Plan: All resolved (3) Vomiting and diarrhea Is this a current diagnosis for this admission?: Yes Plan: I do not think anything in the hospital except the patient's taking potassium tablets through up Will work of the gallbladder (4) Abdominal pain Qualifiers: Is this a current diagnosis for this admission?: Yes Plan: Order the HIDA scan (5) Bipolar 1 disorder Is this a current diagnosis for this admission?: Yes (6) Hypokalemia Is this a current diagnosis for this admission?: Yes Plan: The all stable during his - Time Time Spent with patient: 15-24 minutes Medications reviewed and adjusted accordingly: Yes Anticipated discharge: Home Within: within 24 hours - Inpatient Certification Medical Necessity: Need Close Monitoring Due to Risk of Patient Decompensation Post Hospital Care: D/C Used Car Manager Documentation - Plan Summary Plan Summary: Order the HIDA scan
[2017-01-05] MEDS: ACETAMINOPHEN 325 MG TABLET PO PRN ×4 (11:55→22:33)
[2017-01-05] MEDS ORDERED: FLUTICASONE NASAL SPRAY 50 MCG/SPRY 120 SPRAY/16 GM NASL SCH (22:00)
[2017-01-05] MEDS ORDERED: FLUTICASONE NASAL SPRAY 50 MCG/SPRY 120 SPRAY/16 GM ONE (22:07)
[2017-01-06] MEDS: ACETAMINOPHEN 325 MG TABLET PO PRN ×2 (02:38→06:46)
[2017-01-06 03:52] VITALS: BP 147/76
[2017-01-06 05:43] LABS: ABSOLUTE BASOPHILS # (AUTO) 0.1 10^3/uL (0.0-0.2); ABSOLUTE EOSINOPHILS # (AUTO) 0.1 10^3/uL (0.0-0.6); ABSOLUTE LYMPHOCYTES (AUTO) 1.9 10^3/uL (0.5-4.7); ABSOLUTE MONOCYTES (AUTO) 0.8 10^3/uL (0.1-1.4); ABSOLUTE NEUT (AUTO) 5.6 10^3/uL (1.7-8.2); BASOPHILS % (AUTO) 0.9 % (0-2); EOSINOPHILS % (AUTO) 0.8 % (0-6); HEMATOCRIT 30.3 % (36.0-47.0); HEMOGLOBIN 10.9 g/dL (12.0-15.5); HGB HCT DIFFERENCE 2.4; LYMPHOCYTES % (AUTO) 22.1 % (13-45); MEAN CORPUSCULAR HEMOGLOBIN 28.9 pg (27.0-33.4); MEAN CORPUSCULAR HGB CONC 35.8 g/dL (32.0-36.0); MEAN CORPUSCULAR VOLUME 81 fl (80-97); MONOCYTES % (AUTO) 9.3 % (3-13); RED BLOOD COUNT 3.75 10^6/uL (3.72-5.28); RED CELL DISTRIBUTION WIDTH 14.7 % (11.5-14.0); SEGMENTED NEUTROPHILS % (AUTO) 66.9 % (42-78); WHITE BLOOD COUNT 8.4 10^3/uL (4.0-10.5)
[2017-01-06 05:55] LABS: ALANINE AMINOTRANSFERASE 24 U/L (9-52); ALBUMIN 3.9 g/dL (3.5-5.0); ALKALINE PHOSPHATASE 50 U/L (38-126); ANION GAP 14 (5-19); ASPARTATE AMINO TRANSFERASE 21 U/L (14-36); BILIRUBIN,DIRECT 0.4 mg/dL (0.0-0.4); BILIRUBIN,TOTAL 0.6 mg/dL (0.2-1.3); BLOOD UREA NITROGEN 7 mg/dL (7-20); CALCIUM 8.5 mg/dL (8.4-10.2); CARBON DIOXIDE 18 mmol/L (22-30); CHLORIDE 106 mmol/L (98-107); CREATININE RESULT 0.65 mg/dL (0.52-1.25); GLUCOSE 87 mg/dL (75-110); SODIUM 137.7 mmol/L (137-145)
[2017-01-06 06:04] LABS: POTASSIUM 2.9 mmol/L (3.6-5.0)
[2017-01-06] MEDS: LANSOPRAZOLE 15 MG TAB.RAP.DR PO SCH (06:06)
[2017-01-06] MEDS: ONDANSETRON HCL INJ/PF 4 MG/2 ML SDV IV PRN (06:42)
[2017-01-06] MEDS ORDERED: POTASSIUM CHLORIDE 10 MEQ TABLET.SA PO ONE (07:00)
--- NOTE | 2017-01-06 07:03 | Physician Advisory Note ---
Physician Advisor ProgressNote .: Pursuant to the plan for [facility], I have reviewed the medical record for this patient. Physician Advisor Statement: Please consider documentin. "Acute hyponatremia, likely due to intravascular volume depletion" (now resolved) 2. "Acute metabolic acidosis, likely due to " (diarrhea?) 3. "H/o" - please avoid using term "history of" for PMH dx.s that are still present, such as HTN, COPD, depression.... - Insurance reviewers will say these things are no longer present because attending said "h/o". "H/o cervical CA, s/p hyst", is, however, appropriate terminology, since it is no longer present/being tx'd. 4. "Opioid dependence" ? - could this, or withdrawal, be causing some of the N /V/D? 5. Medical necessity: please document reasons for: A. MRI/MRA brain (what was suspected/ruled out?), B. Abd CT (not every pt w/N/V/D needs abd CT - what was the concern prompting this order?), C. Continued hospitalization/status - This needs to be explicit. Then Inpatient status may become reasonable. Has her nausea been preventing her from eating adequately through the weekend? Has she had persistent acute abd pain through 01/04 or 01/05 or later ? What exactly has made her clinically unsafe to go home & have the rest of her workup be done outpatient? Was there anything that kept attending from being more aggressive in tx/workup (IVF rates - concern for fluid overload?, ...) Status: 76yo Medicare pt with HTN, HLD, COPD, borderline DM-2, GERD, OA/ chronic pain, ovarian cysts, prior cervical/uterine CA s/p hyst, type __ bipolar depression - presented with N/V/D/HEALY x 2 days. Later note reports (+)abd pain too. HR 85 , RR18, BP 154/86. wbc 8.3, Hgb 10.9, Na 135.5, bicarb 20, Cr 1.24, CT head (- ) except cerebrovasc atherosclerotic dz, LP unsuccessful. Although she was not in [facility], her Cr was about 2x baseline. - ED gave NS boluses x 1L total, IV Zofran x2, IV Dilaudid x2. - Pt still appearing dehydrated to attending at time of H&P. Attending ordered MRI/MRA, CT A&P, stool for C.diff, IV NS @100, prn IV Zofran, f/u labs. - Should have come in as Outpt Observation, since she could have had negative studies & resolution of sx by the next day. After 1MN, on 01/04, pt "constantly asking about oxycodone", still w/nausea, but mucosae moist. CT showed distended GB. Pt vomited AM meds. K had dropped to 3.2, & bicarb was even worse at 17. Pt didn't tolerate po or IV KCl, had to have IVF w/KCl included, which was given at slower rate of 75 after she had had excessive "burning" with attempted K riders. Attending ordered U/S & f/u labs as well. Nursing note that AM indicated continued N/V, & nursing note at HS indicated continued nausea. After 2MNs, on 01/05, U/S neg but radiologist recommended HIDA to clarify findings. Pt still w/nausea, bicarb still low at 17, hypoglycemia of 72. Pt was continued on IVF, though now at only 50ml/hr. HIDA was ordered. Tele was d /c'd. Patient was NPO at breakfast & lunch. Nursing notes indicated (+) nausea still in AM, & SOB @rest & abd tenderness in PM. On 01/06, pt w/hypokalemia worse than before, with continued non-anion gap metabolic acidosis, ... Pt has been in hospital care now for 3 MNs, with continued sx & continued acute metabolic acidosis. With explicit documentation of ongoing attending concerns/ reasons she could not safely go home from clinical perspective, pt could collar turner to be appropriate for Inpatient status now. Thanks! CK
[2017-01-06] MEDS: DOCUSATE SODIUM 100 MG CAPSULE PO SCH (08:57)
[2017-01-06] MEDS: ENOXAPARIN SODIUM INJ 40 MG/0.4 ML DISP.SYRIN SUBCUT SCH (09:01)
--- NOTE | 2017-01-06 21:21 | PDOC DISCHARGE SUMMARY ---
General - Admit/Disc Date/PCP Admission Date/Primary Care Provider: 01/03/17 18:55 SOURAV JAY MD Discharge Date: 01/06/17 - Discharge Diagnosis (1) Acute gastroenteritis Is this a current diagnosis for this admission?: Yes (2) Headache Is this a current diagnosis for this admission?: Yes - Additional Information Resuscitation Status: Full Code Home Medications: Acetaminophen with Codeine [Tylenol #3 Tablet] 1 tab PO Q8HP PRN 01/04/17 Brexpiprazole [Rexulti] 1 mg PO DAILY 01/04/17 Ciprofloxacin HCl [Cipro 500 mg Tablet] 500 mg PO BID MDD started 12/29/16 for 10days 01/04/17 Dexlansoprazole [Dexilant 60 mg Capsule] 60 mg PO DAILY 01/04/17 Doxepin HCl [Silenor] 6 mg PO QHS 01/04/17 Gabapentin [Neurontin] 600 mg PO Q8 01/04/17 Megestrol Acetate 40 mg PO Q12 01/04/17 Meloxicam [Mobic 7.5 Mg Tablet] 7.5 mg PO DAILY 01/04/17 Mirtazapine [Remeron] 30 mg PO QHS 01/04/17 Montelukast Sodium [Singulair 10 mg Tablet] 10 mg PO QHS 01/04/17 Pramipexole Di-HCl [Mirapex 0.25 Mg Tablet] 0.25 mg PO QHS 01/04/17 Ranitidine HCl [Zantac 150 mg Tablet] 150 mg PO BID 01/04/17 Tramadol HCl [Ultram 50 mg Tablet] 50 mg PO Q6HP PRN 01/04/17 Valsartan/Hydrochlorothiazide [Valsartan-Hctz 160-25 mg Tab] 1 tab PO DAILY 07/18 History of Present Illness History of Present Illness: ALANA ROMERO is a 76 year old female,She was admitted for the management of diarrhea and vomiting Hospital Course Hospital Course: Patient was admitted over the weekend for the management of diarrhea and vomiting, I reviewed the record I did not actually see the patient, she was brought in for observation apparently she had headache when she presented lumbar puncture was attempted but was not successful she had MRI MRA CT scan of the head are negative. She was managed with IV fluids, the nurses stated that patient left AMA, AGAINST MEDICAL ADVICE because she has to go home to pay her bills so I did not see patient physically before discharge Physical Exam Vital Signs: Temp Pulse Resp BP Pulse Ox 98.1 F 84 18 147/76 H 96 01/06/17 03:51 01/06/17 08:31 01/06/17 08:31 01/06/17 03:51 01/06/17 08:31 Intake & Output 01/05/17 01/06/17 01/07/17 06:59 06:59 06:59 Intake Total 2120 690 Output Total 3000 Balance -880 690 Weight 79.7 kg 79.9 kg Results Laboratory Results: 01/06/17 05:27 01/06/17 05:27 01/06/17 01/06/17 05:27 05:27 WBC 8.4 RBC 3.75 Hgb 10.9 L Hct 30.3 L MCV 81 MCH 28.9 MCHC 35.8 RDW 14.7 H Plt Count 331 Seg Neutrophils % 66.9 Lymphocytes % 22.1 Monocytes % 9.3 Eosinophils % 0.8 Basophils % 0.9 Absolute Neutrophils 5.6 Absolute Lymphocytes 1.9 Absolute Monocytes 0.8 Absolute Eosinophils 0.1 Absolute Basophils 0.1 Sodium 137.7 Potassium 2.9 L* Chloride 106 Carbon Dioxide 18 L Anion Gap 14 BUN 7 Creatinine 0.65 Est GFR ( Amer) > 60 Est GFR (Non-Af Amer) > 60 Glucose 87 Calcium 8.5 Total Bilirubin 0.6 AST 21 ALT 24 Alkaline Phosphatase 50 Total Protein 7.0 Albumin 3.9 Impressions: Abdomen/Pelvis CT 01/03/17 00:00 IMPRESSION: 1. Nonobstructive right nephrolithiasis. 2. Distended gallbladder but no CT evidence of acute cholecystitis. Lumbar Puncture 01/03/17 15:18 IMPRESSION: Unsuccessful Lumbar puncture under fluoroscopy. No immediate complication. Head CT 01/03/17 15:19 IMPRESSION: MILD CHRONIC CHANGES OF ATROPHY AND MICROVASCULAR ISCHEMIA. NO ACUTE PROCESS. Brain MRI with MRA 01/03/17 18:19 IMPRESSION: Limited by motion. No acute intracranial abnormality. No evidence of recent CVA. MRA demonstrates no evidence of gross occlusion or stenosis or aneurysm. EVIDENCE OF ACUTE STROKE: NO. Head MRI 01/03/17 18:19 IMPRESSION: Limited by motion. No acute intracranial abnormality. No evidence of recent CVA. MRA demonstrates no evidence of gross occlusion or stenosis or aneurysm. EVIDENCE OF ACUTE STROKE: NO. Abdomen Ultrasound 01/04/17 00:00 IMPRESSION: 1. Distended gallbladder with possible pericholecystic fluid. Negative sonographic Polanco sign. Recommend further evaluation with hepatobiliary scan. 2. Fatty infiltrated liver.
== END 2017-01-06 11:45 | disposition left against medical advice (07) ==
LOC: ER 14:43 → EH 18:50 → UNDOADMIN 18:50 → INTOOBSV 18:55 → EH 18:55 → 3W 21:40 → 4S 01-05 18:36
PROVIDERS: ADMIT Family Medicine; ATTEND Internal Medicine
PROC: 00JU3ZZ Inspection of Spinal Canal, Percutaneous Approach (ICD-10-PCS; principal; 2017-01-03)
DX: K52.9 Noninfective gastroenteritis and colitis, unspecified (principal); R51 Headache; Z79.899 Other long term (current) drug therapy; Z53.21 Procedure and treatment not carried out due to patient leaving prior to being seen by health care provider; N20.0 Calculus of kidney; E86.0 Dehydration; E87.6 Hypokalemia; K82.8 Other specified diseases of gallbladder; J44.9 Chronic obstructive pulmonary disease, unspecified; F31.9 Bipolar disorder, unspecified; E78.5 Hyperlipidemia, unspecified; I10 Essential (primary) hypertension; Z85.41 Personal history of malignant neoplasm of cervix uteri; Z86.73 Personal history of transient ischemic attack (TIA), and cerebral infarction without residual deficits; Z98.51 Tubal ligation status; Z90.710 Acquired absence of both cervix and uterus; Z87.42 Personal history of other diseases of the female genital tract
CPT/HCPCS: 93005; 96376; 99285; 51701; 96374; 96375; 36415 ×4; 87040 ×2; 87045; 87086; 87205; 83690; 85025 ×4; 85610; 85730; 82272; 80076 ×2; 80048 ×2; 80053 ×2; 81001; 87493 ×2; 70551; 70544; 77003; 62270; 76700; 70450; 74176; 93010; 94640; G0378 ×4; A9270 ×13; J1650 ×3; J1170; J2405 ×4; J3480 ×3; J7030 ×2; J7620

== ENCOUNTER → 2017-09-21 | Outpatient (CLI) | payer MEDICARE, MEDICAID ==
--- NOTE | 2017-09-21 11:12 | RADIOLOGY REPORT (SQ) ---
EXAM DESCRIPTION: BARIUM SWALLOW ESOPHAGUS COMPLETED DATE/TIME: 09/21/2017 10:43 am REASON FOR STUDY: DYSPHAGIA (R13.10) R13.10 DYSPHAGIA, UNSPECIFIED COMPARISON: None. TECHNIQUE: Under fluoroscopic guidance, patient ingested effervescent granules followed by thick and thin barium. Fluoroscopic spot images and routine radiographic images acquired and stored on PACS. 12 MM BARIUM TABLET GIVEN: 1 minutes 44 seconds No significant delay in passage. LIMITATIONS: None. FLUOROSCOPY TIME: FLUORO TIME: 1 minutes 44 seconds 15 series of digital images saved to PACS. FINDINGS: NEUROMUSCULAR COORDINATION OF SWALLOW: Normal. No aspiration. 1 cm Zenker's diverticulum. ESOPHAGEAL MOTILITY: Normal peristalsis. Mild esophageal spasm at the level of the aortic arch. ESOPHAGEAL MUCOSA: Normal mucosa without masses or ulceration. GASTRO-ESOPHAGEAL JUNCTION: Small hiatal hernia. Minimal gastroesophageal reflux. No distal esophag eal stricture. NON-GI TRACT STRUCTURES: No significant finding. IMPRESSION: Small hiatal hernia with minimal gastroesophageal reflux. No distal esophageal fixed st ricture. COMMENT: Quality ID [id number]: Final reports for procedures using fluoroscopy that document radiation exp osure indices, or exposure time and number of fluorographic images (if radiation exposure indices are not available) TECHNICAL DOCUMENTATION: JOB ID: [id number] [employer]- All Rights Reserved Reading location - IP/workstation name: [facility]PLACED BY [facility]
== END ==
LOC: RAD 10:07
PROVIDERS: ATTEND Internal Medicine
DX: R13.10 Dysphagia, unspecified (principal)
CPT/HCPCS: 74220

== ENCOUNTER 2018-03-03 08:11 | Emergency (ER) | payer MEDICARE, MEDICAID ==
[2018-03-03] MEDS ORDERED: NORMAL SALINE 1000 ML 1,000 ML IV PRN (08:27)
[2018-03-03] MEDS ORDERED: FENTANYL CITRATE INJ/PF 100 MCG/2 ML AMPUL IV ONE (08:30)
--- NOTE | 2018-03-03 08:31 | ER Document Report ---
ED General - General Stated Complaint: FALL/BACK PAIN Time Seen by Provider: 03/03/18 08:15 TRAVEL OUTSIDE OF THE [place] IN LAST 30 DAYS: No - HPI Notes: Patient is a 77-year-old female with a history of chronic back and joint pain, hypertension, borderline diabetic, COPD, depression who presents to the ED complaining of low back pain status post fall prior to arrival. Patient states that she was standing up last evening around 9 PM when she lost her balance and fell backwards landing on her back. Patient states that she did hit her head as well. Patient states that the pain in her back does not radiate. Patient states that she was maneuvering on the floor until she can find a phone most of last night. Patient states that she has a mild headache as well as some neck pain associated. There was a report of possible syncopal episode that led to her fall, patient declines stating that she lost her balance and did not lose consciousness at all. Denies any fever, changes in vision/speech/mentation/ hearing, URI, sore throat, chest pain, palpitations, syncope, cough, shortness of breath, wheeze, dyspnea, abdominal pain, nausea/vomiting/diarrhea, urinary retention, dysuria, hematuria, loss of control of bowel or bladder, numbness/ tingling, saddle anesthesia, muscle paralysis/weakness, or rash. - Related Data Allergies/Adverse Reactions: codeine Allergy (Verified 08/25/16 18:58) morphine [Morphine] Allergy (Verified 08/25/16 18:58) Past Medical History - Social History Smoking Status: Unknown if Ever Smoked Family History: Reviewed & Not Pertinent - Past Medical History Cardiac Medical History: Reports: Hx Hypercholesterolemia, Hx Hypertension Pulmonary Medical History: Reports: Hx COPD Neurological Medical History: Denies: Hx Seizures Endocrine Medical History: Reports: Hx Diabetes Mellitus Type 2 - "borderline" Renal/ Medical History: Reports: Hx Ovarian Cysts. Denies: Hx Peritoneal Dialysis Malignancy Medical History: Reports: Hx Cervical Cancer - uterine cancer GI Medical History: Reports: Hx Gastroesophageal Reflux Disease Musculoskeletal Medical History: Reports Hx Arthritis - back, shoulders, and neck, Reports Hx Musculoskeletal Deformity - Chronic back pain arthritis and back shoulder or neck Psychiatric Medical History: Reports: Hx Depression Past Surgical History: Reports: Hx Section, Hx Gynecologic Surgery, Hx Hysterectomy, Hx Orthopedic Surgery, Hx Tubal Ligation - Immunizations Immunizations up to date: Yes Hx Diphtheria, Pertussis, Tetanus Vaccination: Yes Hx Pneumococcal Vaccination: 02/01/13 Review of Systems - Review of Systems -: Yes All other systems reviewed and negative Physical Exam - Vital signs Vitals: Pulse Ox 100 03/03/18 08:20 - Notes Notes: PHYSICAL EXAMINATION: accompanied by female nurse GENERAL: Pt appears uncomfortable and keeps c/o back pain, but is able to move her legs/hips/arms/head w/o difficulty. A&Ox4. Answers questions appropriately. HEAD: Atraumatic, normocephalic. Non-tender. No michele sign EYES: Pupils equal round and reactive to light, extraocular movements intact, sclera anicteric, conjunctiva are normal. No raccoon eyes/entrapment. No nystagmus. ENT: EAC clear b/l. TM's intact b/l without erythema, fluid, or perforation. Nares patent and without discharge. oropharynx clear without exudates. No tonsilar hypertrophy or erythema. Moist mucous membranes. No sinus tenderness. No hemotympanum/CSF discharge. NECK: No rigidity. + mild midline tenderness. Chest: No flail chest. equal rise/fall. Non-tender LUNGS: Breath sounds clear to auscultation bilaterally and equal. No wheezes rales or rhonchi. HEART: Regular rate and rhythm without murmurs, rubs, gallops. ABDOMEN: Soft, nontender, nondistended abdomen. No guarding, no rebound. No masses appreciated. Normal bowel sounds present. No CVA tenderness bilaterally. No ecchymosis. Musculoskeletal: Ext's b/l: FROM to passive/active. Strength 5+/5. No deficits noted. + mild tenderness to the lateral hips b/l and to the left shoulder with noted ecchymosis. Back: FROM to passive/active. Strength 5+/5. No vertebral point tenderness, stepoffs, or deformities. No other bony tenderness or ecchymosis. SLR negative b/l. Extremities: No cyanosis, clubbing, or edema b/l. Peripheral pulses 2+. Capillary refill less than 2 seconds. NEUROLOGICAL: NIH 0. GCS 15. MMSE intact. Cranial nerves grossly intact. Normal speech, normal gait. Normal sensory, motor exams. Reflexes 2+ b/l. CATRACHITA' s negative. Pronator drift negative. Heel/lindsay, finger/nose wnl. Walking on heels/toes and heel to toe wnl. PSYCH: Normal mood, normal affect. SKIN: Warm, Dry, normal turgor, no rashes or lesions noted. Course - Re-evaluation Re-evalutation: 03/03/18 14:40 Patient is an afebrile, well-hydrated, 77-year-old female who presents to the ED with acute on chronic low back pain status post fall. Vitals are acceptable without any significant tachycardia, tachypnea, or hypoxia. PE is otherwise unremarkable for any focal neurological deficits, neurovascular compromise, obvious tendon/tendon rupture, obvious fracture/dislocation. CT scan of the head, cervical spine, L-spine were unremarkable for any acute pathology. X-ray of the pelvis and left shoulder were also unremarkable for any acute pathology. Labs are grossly acceptable with the exception of hypokalemia at 3.0. Potassium chloride was given p.o. today. Patient is nontoxic-appearing and has been tolerating p.o. without any difficulties. The patient is able to ambulate and weight-bear. Pt states, "I can walk, it's a miracle." No further labs or imaging warranted at this time. This case has been followed by Dr. Silva who is in agreement with dispo/plan. Low suspicion for any acute intracranial process, meningitis, fracture, expanding/ruptured AAA, cauda equina syndrome, epidural mass lesion/abscess, herniated disc causing severe spinal stenosis, or other systemic infection at this time. Patient is aware that this condition can change from initial presentation and that she needs monitor symptoms closely for any acute changes. Patient is not exactly sure if she has potassium chloride at home to take p.o. so we will send her with a small prescription. She is to look at her meds at home and make sure that she does not have any other potassium medication before taking this. Recheck with your PCM in 2-3 days. Return to the ED with any worsening/concerning symptoms otherwise as reviewed discharge. Patient is in agreement. - Vital Signs Vital signs: Temp Pulse Resp BP Pulse Ox 97.8 F 98 25 H 142/71 H 97 03/03/18 08:48 03/03/18 08:48 03/03/18 12:10 03/03/18 12:10 03/03/18 12:10 - Laboratory Result Diagrams: 03/03/18 11:52 03/03/18 13:19 Laboratory results interpreted by me: 03/03/18 03/03/18 03/03/18 11:52 13:19 13:19 WBC 16.2 H RDW 14.5 H Seg Neutrophils % 85.1 H Lymphocytes % 8.6 L Absolute Neutrophils 13.8 H APTT 38.1 H Sodium 135.0 L Potassium 3.0 L* BUN 23 H Glucose 156 H AST 138 H ALT 55 H Total Protein 6.1 L Albumin 3.3 L Discharge - Discharge Clinical Impression: Acute exacerbation of chronic low back pain, Hypokalemia Fall Qualifiers: Encounter type: initial encounter Qualified Code(s): W19.XXXA - Unspecified fall, initial encounter Condition: Stable Disposition: HOME, SELF-CARE Additional Instructions: You had low potassium here in the emergency department. I will be sending you home with a small dose of potassium chloride, but make sure that you do not have potassium at home that you are already taking. Rest, Ice, Compression, Elevation Use crutches/splint/sling as directed Tylenol/ibuprofen as needed Light stretches daily Strength exercises as able Moist heat and massage may help F/u with your PCP in 2-3 days for a recheck Consider consult(s) with Orthopedics/physical therapy for ongoing/worsening symptoms Return to the ED with any worsening symptoms and/or development of fever, headache, changes in behavior/mentation/vision/speech, chest pain, palpitations , syncope, shortness of breath, trouble breathing, abdominal pain, n/v/d, blood in stool/urine, loss of control of bowel/bladder, urinary retention, muscle weakness/paralysis, saddle anesthesia, numbness/tingling, or other worsening symptoms that are concerning to you. Prescriptions: Potassium Chloride 10 meq PO DAILY #6 tablet.er Forms: Elevated Blood Pressure Referrals: ROSLYN TOLEDO MD [Primary Care Provider] - 03/05/18
[2018-03-03] MEDS ORDERED: FENTANYL CITRATE INJ/PF 100 MCG/2 ML AMPUL IM ONE (10:13)
--- NOTE | 2018-03-03 11:48 | RADIOLOGY REPORT (SQ) ---
EXAM DESCRIPTION: CT CERVICAL SPINE WITHOUT COMPLETED DATE/TIME: 03/03/2018 11:08 am REASON FOR STUDY: pain s/p fall COMPARISON: 04/08/2015 TECHNIQUE: Axial images acquired through the cervical spine without intravenous contrast. Images re viewed with lung, soft tissue and bone windows. Reconstructed coronal and sagittal MPR images review ed. Images stored on PACS. All CT scanners at this facility use dose modulation, iterative reconstruction, and/or weight based d osing when appropriate to reduce radiation dose to as low as reasonably achievable (ALARA). [facility]: Dose Right [facility]: CareDose [facility]: Dose Right [facility]: Teradose 4D [facility]: Smart SensorTran RADIATION DOSE: CT Rad equipment meets quality standard of care and radiation dose reduction techniq ues were employed. CTDIvol: 26.2 mGy. DLP: 991 mGy-cm. mGy. LIMITATIONS: None. FINDINGS: ALIGNMENT: Levoscoliosis. MINERALIZATION: Osteopenia. VERTEBRAL BODIES: No fractures or dislocation. DISCS: Disc spaces are narrowed from C4-T1. Small anterior and posterior osteophytes are present. FACETS, LATERAL MASSES, POSTERIOR ELEMENTS: No fractures. No dislocation. No acute findings. HARDWARE: None in the spine. VISUALIZED RIBS: No fractures. LUNG APICES AND SOFT TISSUES: No significant or acute findings. OTHER: No other significant finding. IMPRESSION: Scoliosis, degenerative disc disease, and mild spondylosis. TECHNICAL DOCUMENTATION: JOB ID: [id number] Quality ID # [id number]: Final reports with documentation of one or more dose reduction techniques (e.g., Au tomated exposure control, adjustment of the mA and/or kV according to patient size, use of iterative reconstruction technique) 2010 [employer]- All Rights Reserved Reading location - IP/workstation name: [email or web address]
--- NOTE | 2018-03-03 11:52 | RADIOLOGY REPORT (SQ) ---
EXAM DESCRIPTION: CT HEAD WITHOUT COMPLETED DATE/TIME: 03/03/2018 11:08 am REASON FOR STUDY: pain s/p fall COMPARISON: CT 01/03/2017 MR 01/03/2017 TECHNIQUE: Axial images acquired through the brain without intravenous contrast. Images reviewed wi th bone, brain and subdural windows. Additional sagittal and coronal reconstructions were generated. Images stored on PACS. All CT scanners at this facility use dose modulation, iterative reconstruction, and/or weight based d osing when appropriate to reduce radiation dose to as low as reasonably achievable (ALARA). [facility]: Dose Right [facility]: CareDose [facility]: Dose Right [facility]: Teradose 4D [facility]: Smart Expo[employer]oter RADIATION DOSE: CT Rad equipment meets quality standard of care and radiation dose reduction techniq ues were employed. CTDIvol: 53.2 mGy. DLP: 1044 mGy-cm. mGy. LIMITATIONS: None. FINDINGS: VENTRICLES: Normal size and contour. CEREBRUM: No masses. No hemorrhage. No midline shift. No evidence for acute infarction. Few scatte red areas of low density in the white matter most likely chronic small vessel ischemic changes. CEREBELLUM: No masses. No hemorrhage. No alteration of density. No evidence for acute infarction. EXTRAAXIAL SPACES: No fluid collections. No masses. ORBITS AND GLOBE: No intra- or extraconal masses. Normal contour of globe without masses. CALVARIUM: No fracture. PARANASAL SINUSES: No fluid or mucosal thickening. SOFT TISSUES: No mass or hematoma. OTHER: No other significant finding. IMPRESSION: MILD CHRONIC MICROVASCULAR ISCHEMIA. NO ACUTE IMAGING FINDINGS IN THE BRAIN. EVIDENCE OF ACUTE STROKE: NO. COMMENT: Quality ID # [id number]: Final reports with documentation of one or more dose reduction techniques (e.g., Automated exposure control, adjustment of the mA and/or kV according to patient size, use of iterative reconstruction technique) TECHNICAL DOCUMENTATION: JOB ID: [id number] [employer]- All Rights Reserved Reading location - IP/workstation name: [email or web address]
--- NOTE | 2018-03-03 11:59 | RADIOLOGY REPORT (SQ) ---
EXAM DESCRIPTION: CT LUMBAR SPINE WITHOUT COMPLETED DATE/TIME: 03/03/2018 11:08 am REASON FOR STUDY: pain s/p fall COMPARISON: None. TECHNIQUE: Axial images acquired through the lumbar spine without intravenous contrast. Images revi ewed with lung, soft tissue and bone windows. Reconstructed coronal and sagittal MPR images reviewed . All images stored on PACS. All CT scanners at this facility use dose modulation, iterative reconstruction, and/or weight based d osing when appropriate to reduce radiation dose to as low as reasonably achievable (ALARA). [facility]: Dose Right [facility]: CareDose [facility]: Dose Right [facility]: Teradose 4D [facility]: [email or web address] RADIATION DOSE: mGy. LIMITATIONS: None. FINDINGS: SEGMENTATION: Normal. No transitional anatomy. ALIGNMENT: Scoliosis. VERTEBRAL BODIES: No fractures. No dislocation. No acute findings. DISCS: Disc spaces are narrowed at L1-2 and L2-3 and at L5-S1. Marginal osteophytes are present in t he upper lumbar spine. Mild concentric disc bulging at L3-4 and L4-5 with no significant central can al or foraminal stenoses. PEDICLES, TRANSVERSE PROCESSES: No fractures. No dislocation. No acute findings. FACETS, POSTERIOR ELEMENTS: Hypertrophic facet changes are present at L4-5 and L5-S1. HARDWARE: None in the spine. VISUALIZED RIBS: No fractures. SOFT TISSUES: No significant or acute finding in adjacent soft tissues. OTHER: No other significant finding. IMPRESSION: Scoliosis. Degenerative disc disease. Spondylosis. Facet arthropathy. Disc bulge is as described. No acute abnormality appreciated. TECHNICAL DOCUMENTATION: JOB ID: [id number] Quality ID # [id number]: Final reports with documentation of one or more dose reduction techniques (e.g., Au tomated exposure control, adjustment of the mA and/or kV according to patient size, use of iterative reconstruction technique) 2010 [employer]- All Rights Reserved Reading location - IP/workstation name: [email or web address]
--- NOTE | 2018-03-03 12:03 | RADIOLOGY REPORT (SQ) ---
EXAM DESCRIPTION: SHOULDER LEFT 2 OR MORE VIEWS COMPLETED DATE/TIME: 03/03/2018 11:24 am REASON FOR STUDY: pain s/p fall with noted ecchymosis. COMPARISON: None. NUMBER OF VIEWS: Three views. TECHNIQUE: Internal rotation, external rotation, and Y view images acquired of the left shoulder. LIMITATIONS: None. FINDINGS: MINERALIZATION: Normal. BONES: No acute fracture or dislocation. No worrisome bone lesions. JOINTS: No dislocation. VISUALIZED LUNGS AND RIBS: No pneumothorax. No rib fracture. SOFT TISSUES: No radiopaque foreign body. OTHER: No other significant finding. IMPRESSION: NEGATIVE STUDY OF THE LEFT SHOULDER. NO RADIOGRAPHIC EVIDENCE OF ACUTE INJURY. TECHNICAL DOCUMENTATION: JOB ID: [id number] [email or web address]- All Rights Reserved Reading location - IP/workstation name: [email or web address]
--- NOTE | 2018-03-03 12:04 | RADIOLOGY REPORT (SQ) ---
EXAM DESCRIPTION: PELVIS AP COMPLETED DATE/TIME: 03/03/2018 11:24 am REASON FOR STUDY: pain s/p fall COMPARISON: 03/23/2012. NUMBER OF VIEWS: One view TECHNIQUE: AP Pelvis LIMITATIONS: None. FINDINGS: MINERALIZATION: Normal. HIPS: No acute fracture or dislocation. No worrisome bone lesions. PELVIS AND SACRUM: No acute fracture or dislocation. No worrisome bone lesions. PUBIS AND ISCHIUM: No acute fracture. LOWER LUMBAR SPINE: No significant findings as visualized. SOFT TISSUES: No findings. OTHER: No other significant finding. IMPRESSION: NEGATIVE STUDY OF THE PELVIS. TECHNICAL DOCUMENTATION: JOB ID: [id number] [employer]- All Rights Reserved Reading location - IP/workstation name: [email or web address]
[2018-03-03 12:19] LABS: ABSOLUTE BASOPHILS # (AUTO) 0.1 10^3/uL (0.0-0.2); ABSOLUTE EOSINOPHILS # (AUTO) 0.1 10^3/uL (0.0-0.6); ABSOLUTE LYMPHOCYTES (AUTO) 1.4 10^3/uL (0.5-4.7); ABSOLUTE MONOCYTES (AUTO) 0.8 10^3/uL (0.1-1.4); ABSOLUTE NEUT (AUTO) 13.8 10^3/uL (1.7-8.2); BASOPHILS % (AUTO) 0.7 % (0-2); EOSINOPHILS % (AUTO) 0.4 % (0-6); HEMATOCRIT 38.1 % (36.0-47.0); HEMOGLOBIN 13.2 g/dL (12.0-15.5); LYMPHOCYTES % (AUTO) 8.6 % (13-45); MEAN CORPUSCULAR HEMOGLOBIN 28.9 pg (27.0-33.4); MEAN CORPUSCULAR HGB CONC 34.6 g/dL (32.0-36.0); MEAN CORPUSCULAR VOLUME 84 fl (80-97); MONOCYTES % (AUTO) 5.2 % (3-13); PLATELET COUNT 411 10^3/uL (150-450); RED BLOOD COUNT 4.57 10^6/uL (3.72-5.28); RED CELL DISTRIBUTION WIDTH 14.5 % (11.5-14.0); SEGMENTED NEUTROPHILS % (AUTO) 85.1 % (42-78); TOTAL CELLS COUNTED % (AUTO) 100 %; WHITE BLOOD COUNT 16.2 10^3/uL (4.0-10.5)
[2018-03-03 13:49] LABS: INTERNATIONAL RATION (INR) 1.12
[2018-03-03 13:50] LABS: PARTIAL THROMBOPLASTIN TIME 38.1 SEC (23.5-35.8)
[2018-03-03 13:54] LABS: ALANINE AMINOTRANSFERASE 55 U/L (9-52); ALBUMIN 3.3 g/dL (3.5-5.0); ALKALINE PHOSPHATASE 66 U/L (38-126); ANION GAP 11 (5-19); ASPARTATE AMINO TRANSFERASE 138 U/L (14-36); BILIRUBIN,DIRECT 0.3 mg/dL (0.0-0.4); BLOOD UREA NITROGEN 23 mg/dL (7-20); CALCIUM 9.3 mg/dL (8.4-10.2); CARBON DIOXIDE 24 mmol/L (22-30); CHLORIDE 100 mmol/L (98-107); GLUCOSE 156 mg/dL (75-110); TOTAL PROTEIN 6.1 g/dL (6.3-8.2)
[2018-03-03] MEDS ORDERED: POTASSIUM CHLORIDE 10 MEQ CAPSULE.ER PO ONE (14:04)
[2018-03-03 16:19] VITALS: BP 117/62
--- NOTE | 2018-03-03 19:18 | EKG REPORT ---
SEVERITY:- ABNORMAL ECG - SINUS RHYTHM LEFT ANTERIOR FASCICULAR BLOCK PROBABLE LVH : Confirmed by: Enma Eckert MD 03-Mar-2018 19:17:22
== END 2018-03-03 16:19 | disposition home or self-care (01) ==
LOC: ER 08:11
DX: M54.5 Low back pain (principal); S40.012A Contusion of left shoulder, initial encounter; S70.02XA Contusion of left hip, initial encounter; S70.01XA Contusion of right hip, initial encounter; R51 Headache; M54.2 Cervicalgia; W19.XXXA Unspecified fall, initial encounter; G89.29 Other chronic pain; E87.6 Hypokalemia; I10 Essential (primary) hypertension; J44.9 Chronic obstructive pulmonary disease, unspecified; Z88.5 Allergy status to narcotic agent
CPT/HCPCS: 93005; 99284; 96372; 36415; 85025; 85610; 85730; 80053; 72170; 73030; 70450; 72125; 72131; 93010; J3010; A9270

== ENCOUNTER → 2018-04-05 | Outpatient (CLI) | payer MEDICARE, MEDICAID ==
--- NOTE | 2018-04-05 11:11 | RADIOLOGY REPORT (SQ) ---
EXAM DESCRIPTION: CHEST PA/LATERAL COMPLETED DATE/TIME: 04/05/2018 10:48 am REASON FOR STUDY: PNEUMONIA,UNSPECIIFIED ORGANISM COMPARISON: CT Lumbar spine dated 03/03/2018. EXAM PARAMETERS: NUMBER OF VIEWS: two views TECHNIQUE: Digital Frontal and Lateral radiographic views of the chest acquired. RADIATION DOSE: NA LIMITATIONS: none FINDINGS: LUNGS AND PLEURA: Bibasilar and mid lung zones slight to mild linear subsegmental parench ymal densities, may be on the basis of infiltrates. No pneumothorax or pleural effusion. MEDIASTINUM AND HILAR STRUCTURES: No masses or contour abnormalities. HEART AND VASCULAR STRUCTURES: Heart normal size. No evidence for failure. BONES: New finding of mild to moderate compression deformity of one of the vertebra at the thoracolu mbar junction since the CT lumbar spine examination dated 03/03/2018. HARDWARE: None in the chest. OTHER: No other significant finding. IMPRESSION: 1. Mild linear subsegmental parenchymal densities in the mid and lower lung zones, may represent infiltrates. 2. Since the previous CT Lumbar spine examination dated 03/03/2018, mild to moderate compression def ormity of one of the vertebra at the thoracolumbar junction. Correlation suggested. TECHNICAL DOCUMENTATION: JOB ID: [id number] [employer]- All Rights Reserved Reading location - IP/workstation name: [email or web address]
== END ==
LOC: OD 10:30
PROVIDERS: ATTEND Internal Medicine
DX: J18.9 Pneumonia, unspecified organism (principal)
CPT/HCPCS: 71046

== ENCOUNTER 2018-04-08 22:36 | Emergency (ER) | payer MEDICARE, MEDICAID ==
[2018-04-08] MEDS ORDERED: ONDANSETRON HCL INJ/PF 4 MG/2 ML SDV IV ONE (23:43)
[2018-04-08] MEDS ORDERED: FENTANYL CITRATE INJ/PF 100 MCG/2 ML AMPUL IV ONE (23:43)
--- NOTE | 2018-04-08 23:52 | ER Document Report ---
ED General - General Chief Complaint: Abdominal Pain Stated Complaint: ABDOMINAL PAIN Time Seen by Provider: 04/08/18 23:08 Notes: Patient is a 77-year-old female presenting to the emergency department complaining of generalized abdominal pain, vomiting and, sacral pain. Patient states this afternoon she started with generalized abdominal pain and then vomited x7. Patient denies any blood in her vomit. Patient denies any diarrhea , fever, URI symptoms, dysuria, vaginal discharge, shortness of breath or chest pain.. Patient does admit to continually being nauseous at this time. Patient states 5 days ago she did slip and fall landing directly on her buttocks. States she has chronic back pain and is treated at pain management for the same but states that the pain in her lower buttocks has increased over the last couple of days after her fall and she has not been able to keep down her prescribed oxycodone because of her recent vomiting. Patient denies hitting her head, neck, upper back when she slipped and fell. Denies pain in all states her pain is only in her lower sacrum regional where she has placed a Lidoderm patch. Patient states Lidoderm patch is not helping her pain. Past medical history: Chronic back pain, hypertension, depression, cancer Medications: Valsartan HCTZ, tramadol, Toradol, isosorbide, oxycodone, promethazine Allergies: Codeine, morphine Surgical history: Appendectomy, hysterectomy Patient denies cigarette smoking, denies illicit drug use, denies EtOH use. TRAVEL OUTSIDE OF THE [place] IN LAST 30 DAYS: No - Related Data Allergies/Adverse Reactions: codeine Allergy (Verified 08/25/16 18:58) morphine [Morphine] Allergy (Verified 08/25/16 18:58) Past Medical History - General Information source: Patient - Social History Smoking Status: Never Smoker Chew tobacco use (# tins/day): No Drug Abuse: None Lives with: Alone Family History: Reviewed & Not Pertinent Patient has suicidal ideation: No Patient has homicidal ideation: No - Past Medical History Cardiac Medical History: Reports: Hx Hypercholesterolemia, Hx Hypertension Pulmonary Medical History: Reports: Hx COPD Neurological Medical History: Denies: Hx Seizures Endocrine Medical History: Reports: Hx Diabetes Mellitus Type 2 - "borderline" Renal/ Medical History: Reports: Hx Ovarian Cysts. Denies: Hx Peritoneal Dialysis Malignancy Medical History: Reports: Hx Cervical Cancer - uterine cancer GI Medical History: Reports: Hx Gastroesophageal Reflux Disease Musculoskeletal Medical History: Reports Hx Arthritis - back, shoulders, and neck, Reports Hx Musculoskeletal Deformity - Chronic back pain arthritis and back shoulder or neck Psychiatric Medical History: Reports: Hx Depression Past Surgical History: Reports: Hx Section, Hx Gynecologic Surgery, Hx Hysterectomy, Hx Orthopedic Surgery, Hx Tubal Ligation - Immunizations Immunizations up to date: Yes Hx Diphtheria, Pertussis, Tetanus Vaccination: Yes Hx Pneumococcal Vaccination: 02/01/13 Review of Systems - Review of Systems Constitutional: See HPI EENT: See HPI Cardiovascular: See HPI Respiratory: See HPI Gastrointestinal: See HPI Genitourinary: See HPI Female Genitourinary: See HPI Musculoskeletal: See HPI Skin: No symptoms reported Hematologic/Lymphatic: No symptoms reported Neurological/Psychological: No symptoms reported Physical Exam - Vital signs Vitals: Temp Pulse Resp BP Pulse Ox 98.4 F 110 H 16 131/70 H 96 04/08/18 22:47 04/08/18 22:47 04/08/18 22:47 04/08/18 22:47 04/08/18 22:47 - Notes Notes: GENERAL: Alert, interacts well. No acute distress although she is continuing the asking for pain medications. HEAD: Normocephalic, atraumatic. EYES: Pupils equal, round, and reactive to light. Extraocular movements intact. ENT: Oral mucosa moist, tongue midline. NECK: Full range of motion. Supple. Trachea midline. LUNGS: Clear to auscultation bilaterally, no wheezes, rales, or rhonchi. No respiratory distress. HEART: Regular rate and rhythm. No murmur ABDOMEN: Soft, Non-distended. Bowel sounds present in all 4 quadrants. Patient is complaining of generalized abdominal pain, grimaces upon palpation to all 4 quadrants and periumbilical. EXTREMITIES: Moves all 4 extremities spontaneously. No edema, normal radial and dorsalis pedis pulses bilaterally. No cyanosis. 5/5 strength noted in all 4 extremities BACK: no cervical, thoracic, lumbar midline tenderness. Patient does have pinpoint tenderness in her sacral region midline. No saddle anesthesia, normal distal neurovascular exam. Denies loss of bowel or bladder. NEUROLOGICAL: Alert and oriented x3. Normal speech. cranial nerves II through XII grossly intact PSYCH: Normal affect, normal mood. SKIN: Warm, dry, normal turgor. No rashes or lesions noted. Course - Re-evaluation Re-evalutation: 04/08/18 23:52 Upon initial examination patient continues to interrupt my questioning asking if she can have pain medication. Patient states "I have had 6 children and it did not hurt this bad." Patient is also requesting antinausea medication at this time. 04/09/18 04:54 Patient was given 2 total doses of fentanyl in the emergency room and Zofran. Patient has a vomited since arrival to the emergency room and states overall pain is better. Patient continues without cervical, thoracic, lumbar back pain. States it is only in her buttocks in nature midline sacrum. Reviewed abdominal CT which showed potential T1 fracture with no spinal cord compression. This is similar to the chest x-ray she recently had in our system. No signs of mesenteric ischemia, bowel obstruction, or any other nausea causing abdominal pain. Patient has been able to get up and walk around the room. States her pain is better but she still has it. Discussed with her this is chronic back pain and now that she has not vomiting she needs to go home and take her medications as prescribed. Slight hypokalemia noted on labs 3.1 treated with oral potassium in the emergency room. Patient states she has been on potassium replacement in the past but she never takes it. Discussed with her at length different foods that are high in potassium that she should start eating. Patient is also noted to have a hyponatremia of 131.4. Was treated in the emergency room with normal saline solution. In reviewing patient's past chart she is noted to have a hypokalemia and hyponatremia multiple times upon evaluation at this emergency room. Discussed these lab results with patient at bedside and she states "he had put me on some medications but I do not want to take them." Pt. then asked me for more pain medication. I discussed with her at length that there were no abnormalities in her CT and her sacral spine has no fractures. Stated this is her chronic back pain in nature and I cannot give her any more pain medication in the emergency room. She does have oxycodones in the room with her for a prescription. Patient states "but I keep vomiting." I then discussed with the patient that she has not vomited since her arrival to the emergency room and she has been p.o. challenged without vomiting. I will prescribe her Zofran for home use. Discussed need to follow-up with Dr. Toledo her primary care provider in the next 24-48 hours. 04/09/18 05:11 Upon giving nurse discharge paperwork it is found that patient is sleeping. I woke the patient opted to tell her we were going to discharge her and she then states she is in pain and is requesting pain management again. Another long discussion with her about the fact that she needs to take her home pain management and follow-up with Dr. Toledo. - Vital Signs Vital signs: Temp Pulse Resp BP Pulse Ox 98.4 F 110 H 16 129/68 H 93 04/08/18 22:47 04/08/18 22:47 04/08/18 22:47 04/09/18 05:01 04/09/18 05:01 - Laboratory Result Diagrams: 04/08/18 22:59 04/08/18 22:59 Laboratory results interpreted by me: 04/08/18 04/08/18 22:59 22:59 WBC 12.2 H RDW 14.1 H Plt Count 491 H Absolute Neutrophils 9.1 H Sodium 131.4 L Potassium 3.1 L Chloride 89 L Glucose 127 H Discharge - Discharge Clinical Impression: Hypokalemia, Hyponatremia Vomiting Qualifiers: Vomiting type: unspecified Vomiting Intractability: non-intractable Nausea presence: with nausea Qualified Code(s): R11.2 - Nausea with vomiting, unspecified Abdominal pain Qualifiers: Abdominal location: generalized Qualified Code(s): R10.84 - Generalized abdominal pain Condition: Stable Disposition: HOME, SELF-CARE Instructions: Abdominal Pain ([facility]), Antinausea Medication ([facility]), Intravenous ( IV) Fluids ([facility]), Vomiting ([facility]) Additional Instructions: As we discussed you have been seen and treated in the emergency department for vomiting and abdominal pain. Your CT shows no signs of abnormalities. Your labs did show a decrease in your potassium and sodium. This could be because of your vomiting but also looks to be your normal from reviewing past labs. You need to follow-up with Dr. Toledo within 24-48 hours. Please take medications as prescribed and stay well-hydrated. Please return to the emergency room for any other concerning symptoms. Prescriptions: Ondansetron [Zofran Odt 4 mg Tablet] 1 - 2 tab PO Q4H PRN #15 tab.rapdis PRN Reason: For Nausea/Vomiting Referrals: ROSLYN TOLEDO MD [Primary Care Provider] - Follow up as needed
[2018-04-09 00:06] LABS: ABSOLUTE BASOPHILS # (AUTO) 0.1 10^3/uL (0.0-0.2); ABSOLUTE LYMPHOCYTES (AUTO) 2.1 10^3/uL (0.5-4.7); ABSOLUTE NEUT (AUTO) 9.1 10^3/uL (1.7-8.2); BASOPHILS % (AUTO) 0.5 % (0-2); EOSINOPHILS % (AUTO) 0.2 % (0-6); HEMATOCRIT 39.5 % (36.0-47.0); HEMOGLOBIN 13.6 g/dL (12.0-15.5); LYMPHOCYTES % (AUTO) 17.1 % (13-45); MEAN CORPUSCULAR HEMOGLOBIN 28.4 pg (27.0-33.4); MEAN CORPUSCULAR HGB CONC 34.4 g/dL (32.0-36.0); MEAN CORPUSCULAR VOLUME 83 fl (80-97); MONOCYTES % (AUTO) 8.1 % (3-13); PLATELET COUNT 491 10^3/uL (150-450); RED BLOOD COUNT 4.79 10^6/uL (3.72-5.28); RED CELL DISTRIBUTION WIDTH 14.1 % (11.5-14.0); SEGMENTED NEUTROPHILS % (AUTO) 74.1 % (42-78); TOTAL CELLS COUNTED % (AUTO) 100 %; WHITE BLOOD COUNT 12.2 10^3/uL (4.0-10.5)
[2018-04-09 00:11] LABS: ALANINE AMINOTRANSFERASE 24 U/L (9-52); ALBUMIN 4.4 g/dL (3.5-5.0); ALKALINE PHOSPHATASE 86 U/L (38-126); ANION GAP 15 (5-19); ASPARTATE AMINO TRANSFERASE 35 U/L (14-36); BILIRUBIN,DIRECT 0.3 mg/dL (0.0-0.4); BILIRUBIN,TOTAL 0.8 mg/dL (0.2-1.3); BLOOD UREA NITROGEN 17 mg/dL (7-20); CALCIUM 9.5 mg/dL (8.4-10.2); CARBON DIOXIDE 27 mmol/L (22-30); CHLORIDE 89 mmol/L (98-107); GLUCOSE 127 mg/dL (75-110); LIPASE 38.9 U/L (23-300); POTASSIUM 3.1 mmol/L (3.6-5.0); SODIUM 131.4 mmol/L (137-145)
[2018-04-09] MEDS ORDERED: POTASSIUM CHLORIDE 20 MEQ/15 ML UDCUP PO ONE (00:37)
[2018-04-09] MEDS ORDERED: NORMAL SALINE 1000 ML 1,000 ML IV ONE (00:37)
--- NOTE | 2018-04-09 01:37 | RADIOLOGY REPORT (SQ) ---
CT ABDOMEN PELVIS WITH IV CONTRAST HISTORY: Generalized pain. COMPARISON: 01-18 TECHNIQUE: CT scan of the abdomen and pelvis with IV contrast. This exam was performed according to our departmental dose-optimization program, which includes automated exposure control, adjustment of the mA and/or kV according to patient size and/or use of iterative reconstruction technique. FINDINGS: There are scattered areas of atelectasis and scarring at the lung bases. No pleural or pericardial effusions. The liver, spleen, and pancreas are unremarkable. No gallstones by CT criteria. No biliary ductal dilatation is seen. No adrenal masses are identified. Both kidneys are symmetric, without hydronephrosis. A few scattered simple cysts are seen in both kidneys. No ureteral or bladder stones are seen. There has been a prior hysterectomy. The distal thoracic esophagus and stomach are unremarkable. 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 No small bowel obstruction. There has been a prior appendectomy. No pericolonic inflammatory stranding is seen. No mesenteric adenopathy, free fluid or free air is identified. The abdominal aorta and IVC are normal caliber. There is a new anterior wedge compression fracture of T11, which was not present on prior study from 2017. There is no evidence of retropulsion into the spinal canal. IMPRESSION: New anterior wedge compression fracture of T11, which was not present on prior study from 2017. Correlate for point tenderness in this region.
--- NOTE | 2018-04-09 01:39 | RADIOLOGY REPORT (SQ) ---
2 VIEWS OF THE SACRUM AND COCCYX HISTORY: Fall. Sacral pain. COMPARISON: None. FINDINGS: Generalized osteopenia is present. No acute fracture is seen. The joint spaces are preserved. No focal soft tissue swelling is identified. IMPRESSION: No acute fracture or malalignment.
[2018-04-09 02:40] LABS: APPEARANCE,URINE CLEAR; BILIRUBIN,URINE NEGATIVE (NEGATIVE); COLOR,URINE COLORLESS; GLUCOSE, URINE NEGATIVE (NEGATIVE); KETONES,URINE NEGATIVE (NEGATIVE); LEUKOCYTE ESTERASE,URINE NEGATIVE (NEGATIVE); NITRITE,URINE NEGATIVE (NEGATIVE); PROTEIN,URINE NEGATIVE (NEGATIVE); URINE SPECIFIC GRAVITY 1.042; UROBILINOGEN,URINE NEGATIVE mg/dL (<2.0)
[2018-04-09] MEDS ORDERED: FENTANYL CITRATE INJ/PF 100 MCG/2 ML AMPUL IV ONE (02:49)
[2018-04-09] MEDS ORDERED: ONDANSETRON ODT 4 MG TAB (6 TAB/ER DISP) PO PRN (05:06)
[2018-04-09 05:09] VITALS: BP 129/68
--- NOTE | 2018-04-09 09:38 | EKG REPORT ---
SEVERITY:- ABNORMAL ECG - SINUS TACHYCARDIA LEFT ANTERIOR FASCICULAR BLOCK LVH WITH SECONDARY REPOLARIZATION ABNORMALITY : Confirmed by: Nick Kern 09-Apr-2018 09:36:56
== END 2018-04-09 05:28 | disposition home or self-care (01) ==
LOC: ER 22:36
DX: E87.1 Hypo-osmolality and hyponatremia (principal); E87.6 Hypokalemia; R11.2 Nausea with vomiting, unspecified; R10.84 Generalized abdominal pain
CPT/HCPCS: 93005; 96376; 99285; 96361; 96374; 96375; 36415; 83690; 85025; 80053; 81001; 72220; 74177; 93010; J3010; A9270 ×2; J2405; J7030

== ENCOUNTER 2018-04-14 16:27 | Emergency (ER) | payer MEDICARE, MEDICAID ==
[2018-04-14] MEDS ORDERED: ONDANSETRON HCL INJ/PF 4 MG/2 ML SDV IV ONE ×2 (18:04→22:59)
[2018-04-14] MEDS ORDERED: FENTANYL CITRATE INJ/PF 100 MCG/2 ML AMPUL IV ONE (18:04)
--- NOTE | 2018-04-14 18:05 | ER Document Report ---
ED Medical Screen (RME) - General Chief Complaint: Back Pain Stated Complaint: FALL/BACK PAIN Time Seen by Provider: 04/14/18 18:02 Mode of Arrival: Medic Information source: Patient Notes: Patient states she has had nausea vomiting and diarrhea for the past 2 days. Patient states that she was going backwards and tripped falling backwards. Patient complains of low back pain that goes into the buttocks. Patient denies any loss of consciousness. Patient complains of generalized lower abdominal pain. Patient states she is vomited about 5 times today. I have greeted and performed a rapid initial assessment of this patient. A comprehensive ED assessment and evaluation of the patient, analysis of test results and completion of the medical decision making process will be conducted by additional ED providers. TRAVEL OUTSIDE OF THE [place] IN LAST 30 DAYS: No - Related Data Allergies/Adverse Reactions: codeine Allergy (Verified 08/25/16 18:58) morphine [Morphine] Allergy (Verified 08/25/16 18:58) Past Medical History - Past Medical History Cardiac Medical History: Reports: Hx Hypercholesterolemia, Hx Hypertension Pulmonary Medical History: Reports: Hx COPD Neurological Medical History: Denies: Hx Seizures Endocrine Medical History: Reports: Hx Diabetes Mellitus Type 2 - "borderline" Renal/ Medical History: Reports: Hx Ovarian Cysts. Denies: Hx Peritoneal Dialysis Malignancy Medical History: Reports: Hx Cervical Cancer - uterine cancer GI Medical History: Reports: Hx Gastroesophageal Reflux Disease Musculoskeltal Medical History: Reports Hx Arthritis - back, shoulders, and neck , Reports Hx Musculoskeletal Deformity - Chronic back pain arthritis and back shoulder or neck Psychiatric Medical History: Reports: Hx Depression Past Surgical History: Reports: Hx Section, Hx Gynecologic Surgery, Hx Hysterectomy, Hx Orthopedic Surgery, Hx Tubal Ligation - Immunizations Immunizations up to date: Yes Hx Diphtheria, Pertussis, Tetanus Vaccination: Yes Physical Exam - Vital signs Vitals: Temp Pulse Resp BP Pulse Ox 98.4 F 18 L 18 121/80 96 04/14/18 16:40 04/14/18 16:40 04/14/18 16:40 04/14/18 16:40 04/14/18 16:40 - Back Back: Vertebra tenderness - Lower lumbar tenderness Course - Vital Signs Vital signs: Temp Pulse Resp BP Pulse Ox 98.4 F 18 L 18 121/80 96 04/14/18 16:40 04/14/18 16:40 04/14/18 16:40 04/14/18 16:40 04/14/18 16:40 Doctor's Discharge - Discharge Referrals: ROSLYN TOLEDO MD [Primary Care Provider] - Follow up as needed
--- NOTE | 2018-04-14 18:16 | ER Document Report ---
ED Neck/Back Problem - General Chief Complaint: Back Pain Stated Complaint: FALL/BACK PAIN Time Seen by Provider: 04/14/18 18:16 Mode of Arrival: Medic Information source: Patient Notes: Patient is a 77-year-old female who had a mechanical fall at home yesterday. Patient reports that she was standing in her hallway when she lost her footing and fell backwards, striking the middle of her back as well as the back of her head against a carpeted floor. She denies loss of consciousness, was able to stand without need of assistance, has had persistent back pain and lower pelvis pain since the event. She denies confusion or disorientation, no weakness of the extremities. Patient reports "I have had 6 children and this is the worst pain I have been in." TRAVEL OUTSIDE OF THE [place] IN LAST 30 DAYS: No - HPI Patient complains to provider of: Pain, Lower back Onset: Yesterday Where: Home Onset: Sudden Timing: Constant, Worse Quality of pain: Achy, Throbbing Severity: Severe Pain Level: 3 Context: Fall/near-fall Recent injury: No Associated symptoms: None Exacerbated by: Cough/deep breaths, Movement of trunk Relieved by: Nothing Similar symptoms previously: No Recently seen / treated by doctor: Yes - Related Data Allergies/Adverse Reactions: codeine Allergy (Verified 08/25/16 18:58) morphine [Morphine] Allergy (Verified 08/25/16 18:58) Past Medical History - General Information source: Patient - Social History Smoking Status: Unknown if Ever Smoked Chew tobacco use (# tins/day): No Frequency of alcohol use: None Drug Abuse: None Lives with: Alone Family History: Reviewed & Not Pertinent Patient has suicidal ideation: No Patient has homicidal ideation: No - Past Medical History Cardiac Medical History: Reports: Hx Hypercholesterolemia, Hx Hypertension Pulmonary Medical History: Reports: Hx COPD EENT Medical History: Reports: None Neurological Medical History: Reports: None. Denies: Hx Seizures Endocrine Medical History: Reports: Hx Diabetes Mellitus Type 2 - "borderline" Renal/ Medical History: Reports: Hx Ovarian Cysts. Denies: Hx Peritoneal Dialysis Malignancy Medical History: Reports: Hx Cervical Cancer - uterine cancer GI Medical History: Reports: Hx Gastroesophageal Reflux Disease Musculoskeletal Medical History: Reports Hx Arthritis - back, shoulders, and neck, Reports Hx Musculoskeletal Deformity - Chronic back pain arthritis and back shoulder or neck Skin Medical History: Reports None Psychiatric Medical History: Reports: Hx Depression Traumatic Medical History: Reports: None Infectious Medical History: Reports: None Past Surgical History: Reports: Hx Section, Hx Gynecologic Surgery, Hx Hysterectomy, Hx Orthopedic Surgery, Hx Tubal Ligation - Immunizations Immunizations up to date: Yes Hx Diphtheria, Pertussis, Tetanus Vaccination: Yes Hx Pneumococcal Vaccination: 02/01/13 Review of Systems - Review of Systems Constitutional: No symptoms reported EENT: No symptoms reported Cardiovascular: No symptoms reported Respiratory: No symptoms reported Gastrointestinal: No symptoms reported Genitourinary: No symptoms reported Female Genitourinary: No symptoms reported Musculoskeletal: See HPI, Back pain Skin: No symptoms reported Hematologic/Lymphatic: No symptoms reported Neurological/Psychological: No symptoms reported -: Yes All other systems reviewed and negative Physical Exam - Vital signs Vitals: Temp Pulse Resp BP Pulse Ox 98.4 F 18 L 18 121/80 96 04/14/18 16:40 04/14/18 16:40 04/14/18 16:40 04/14/18 16:40 04/14/18 16:40 Interpretation: Normal - General General appearance: Appears well, Alert In distress: None - HEENT Head: Normocephalic, Atraumatic Eyes: Normal Pupils: PERRL - Respiratory Respiratory status: No respiratory distress Chest status: Nontender Breath sounds: Normal Chest palpation: Normal - Cardiovascular Rhythm: Regular Heart sounds: Normal auscultation Murmur: No - Abdominal Inspection: Normal Distension: No distension Bowel sounds: Normal Tenderness: Nontender Organomegaly: No organomegaly - Rectal Notes: Deferred - Genitourinary Notes: Deferred - Back Back: Normal, Tender - Moderate tenderness of the paraspinal musculature of the Lumbar and Sacral spine, no ecchymoses or edema. No: Deformity/step-off, Vertebra tenderness - Extremities General upper extremity: Normal inspection, Nontender, Normal color, Normal ROM , Normal temperature General lower extremity: Normal inspection, Nontender, Normal color, Normal ROM , Normal temperature, Normal weight bearing. No: Asher's sign - Neurological Neuro grossly intact: Yes Cognition: Normal Orientation: AAOx4 [place] Coma Scale Eye Opening: Spontaneous [place] Coma Scale Verbal: Oriented Tim Coma Scale Motor: Obeys Commands [place] Coma Scale Total: 15 Speech: Normal Motor strength normal: LUE, RUE, LLE, RLE Sensory: Normal - Psychological Associated symptoms: Normal affect, Normal mood - Skin Skin Temperature: Warm Skin Moisture: Dry Skin Color: Normal Course - Re-evaluation Re-evalutation: 04/14/18 19:26 Plan to obtain labs, imaging of the back and CT head, and reassess. 04/14/18 23:01 Head and cervical spine CTs are negative. Other plain film x-rays are also negative. Patient is able to ambulate with no assistance necessary. She will be discharged home with return precautions and follow-up as needed with her primary physician. The patient voices understanding and agreement with the plan. - Vital Signs Vital signs: Temp Pulse Resp BP Pulse Ox 98.1 F 100 18 129/68 H 97 04/14/18 22:51 04/14/18 22:51 04/14/18 22:51 04/14/18 22:51 04/14/18 22:51 - Laboratory Result Diagrams: 04/14/18 19:04 04/14/18 19:04 Laboratory results interpreted by me: 04/14/18 19:04 RDW 14.2 H - Diagnostic Test Radiology reviewed: Reports reviewed Discharge - Discharge Clinical Impression: Accident due to mechanical fall without injury Qualifiers: Encounter type: initial encounter Qualified Code(s): W19.XXXA - Unspecified fall, initial encounter Back pain Qualifiers: Back pain location: low back pain Chronicity: acute Back pain laterality: bilateral Sciatica presence: without sciatica Qualified Code(s): M54.5 - Low back pain Condition: Good Disposition: HOME, SELF-CARE Instructions: Low Back Pain ([facility]) Additional Instructions: Please follow-up with your primary physician as needed. Return to the emergency department if you experience the inability to urinate, weakness in your extremities, or have any other concerning symptom. Prescriptions: Diclofenac Sodium 75 mg PO BID 15 Days #30 tablet.dr Referrals: ROSLYN TOLEDO MD [Primary Care Provider] - Follow up as needed Print Language: Uzbek
--- NOTE | 2018-04-14 18:50 | RADIOLOGY REPORT (SQ) ---
EXAM DESCRIPTION: PELVIS AP COMPLETED DATE/TIME: 04/14/2018 6:40 pm REASON FOR STUDY: fall, back pain COMPARISON: 03/03/2018 NUMBER OF VIEWS: One view TECHNIQUE: AP Pelvis LIMITATIONS: None. FINDINGS: MINERALIZATION: Normal. HIPS: No acute fracture or dislocation. No worrisome bone lesions. PELVIS AND SACRUM: No acute fracture or dislocation. No worrisome bone lesions. PUBIS AND ISCHIUM: No acute fracture. LOWER LUMBAR SPINE: No significant findings as visualized. SOFT TISSUES: No findings. OTHER: No other significant finding. IMPRESSION: NEGATIVE STUDY OF THE PELVIS. TECHNICAL DOCUMENTATION: JOB ID: [id number] [employer]- All Rights Reserved Reading location - IP/workstation name: [email or web address]
--- NOTE | 2018-04-14 18:51 | RADIOLOGY REPORT (SQ) ---
EXAM DESCRIPTION: L SPINE WHOLE COMPLETED DATE/TIME: 04/14/2018 6:40 pm REASON FOR STUDY: fall, back pain COMPARISON: None. NUMBER OF VIEWS: Five views including obliques. TECHNIQUE: AP, lateral, oblique, and sacral radiographic images acquired of the lumbar spine. LIMITATIONS: None. FINDINGS: MINERALIZATION: Normal. SEGMENTATION: Normal. No transitional anatomy. ALIGNMENT: Normal. VERTEBRAE: Maintained height. No fracture or worrisome bone lesion. DISCS: Mild disc space narrowing throughout the lumbar spine. POSTERIOR ELEMENTS: Pedicles and facets are intact. No pars defect or posterior arch defects. HARDWARE: None in the spine. PARASPINAL SOFT TISSUES: Normal. PELVIS: Intact as visualized. No fractures or worrisome bone lesions. SI joints intact. OTHER: No other significant finding. IMPRESSION: Mild multilevel spondylosis. No acute findings. TECHNICAL DOCUMENTATION: JOB ID: [id number] [employer]- All Rights Reserved Reading location - IP/workstation name: [email or web address]
[2018-04-14] MEDS ORDERED: ACETAMINOPHEN 325 MG TABLET PO ONE (18:57)
[2018-04-14 19:09] LABS: ABSOLUTE BASOPHILS # (AUTO) 0.1 10^3/uL (0.0-0.2); ABSOLUTE EOSINOPHILS # (AUTO) 0.1 10^3/uL (0.0-0.6); ABSOLUTE LYMPHOCYTES (AUTO) 1.8 10^3/uL (0.5-4.7); ABSOLUTE MONOCYTES (AUTO) 0.8 10^3/uL (0.1-1.4); ABSOLUTE NEUT (AUTO) 5.6 10^3/uL (1.7-8.2); BASOPHILS % (AUTO) 1.4 % (0-2); EOSINOPHILS % (AUTO) 1.1 % (0-6); HEMOGLOBIN 12.3 g/dL (12.0-15.5); LYMPHOCYTES % (AUTO) 21.2 % (13-45); MEAN CORPUSCULAR HEMOGLOBIN 28.4 pg (27.0-33.4); MEAN CORPUSCULAR HGB CONC 34.2 g/dL (32.0-36.0); MEAN CORPUSCULAR VOLUME 83 fl (80-97); MONOCYTES % (AUTO) 9.4 % (3-13); PLATELET COUNT 376 10^3/uL (150-450); RED BLOOD COUNT 4.35 10^6/uL (3.72-5.28); RED CELL DISTRIBUTION WIDTH 14.2 % (11.5-14.0); SEGMENTED NEUTROPHILS % (AUTO) 66.9 % (42-78); TOTAL CELLS COUNTED % (AUTO) 100 %; WHITE BLOOD COUNT 8.3 10^3/uL (4.0-10.5)
[2018-04-14 19:27] LABS: BLOOD UREA NITROGEN 10 mg/dL (7-20); CALCIUM 9.2 mg/dL (8.4-10.2); CARBON DIOXIDE 28 mmol/L (22-30); CHLORIDE 101 mmol/L (98-107); GLUCOSE 99 mg/dL (75-110); POTASSIUM 3.6 mmol/L (3.6-5.0); SODIUM 139.2 mmol/L (137-145)
[2018-04-14 19:28] LABS: ALANINE AMINOTRANSFERASE 20 U/L (9-52); ALBUMIN 3.8 g/dL (3.5-5.0); ALKALINE PHOSPHATASE 70 U/L (38-126); ANION GAP 10 (5-19); ASPARTATE AMINO TRANSFERASE 32 U/L (14-36); BILIRUBIN,DIRECT 0.2 mg/dL (0.0-0.4); BILIRUBIN,TOTAL 0.5 mg/dL (0.2-1.3); LIPASE 32.5 U/L (23-300)
--- NOTE | 2018-04-14 20:50 | RADIOLOGY REPORT (SQ) ---
EXAM DESCRIPTION: CT HEAD WITHOUT COMPLETED DATE/TIME: 04/14/2018 8:41 pm REASON FOR STUDY: Fall COMPARISON: 03/03/2018. TECHNIQUE: Axial images acquired through the brain without intravenous contrast. Images reviewed wi th bone, brain and subdural windows. Additional sagittal and coronal reconstructions were generated. Images stored on PACS. All CT scanners at this facility use dose modulation, iterative reconstruction, and/or weight based d osing when appropriate to reduce radiation dose to as low as reasonably achievable (ALARA). [facility]: Dose Right [facility]: CareDose [facility]: Dose Right [facility]: Teradose 4D [facility]: Smart [employer] RADIATION DOSE: CT Rad equipment meets quality standard of care and radiation dose reduction techniq ues were employed. CTDIvol: 48.6 - 48.6 mGy. DLP: 2862 mGy-cm. mGy. LIMITATIONS: None. FINDINGS: VENTRICLES: Prominent. CEREBRUM: No masses. No hemorrhage. No midline shift. Areas of low density in the white matter mos t likely due to chronic micro-vascular ischemic change. 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 No evidence for acute infarction. CEREBELLUM: No masses. No hemorrhage. No alteration of density. No evidence for acute infarction. EXTRAAXIAL SPACES: Mild age-related involutional change. No fluid collections. No masses. ORBITS AND GLOBE: No intra- or extraconal masses. Normal contour of globe without masses. CALVARIUM: No fracture. PARANASAL SINUSES: No fluid or mucosal thickening. SOFT TISSUES: No mass or hematoma. OTHER: No other significant finding. IMPRESSION: MILD CHRONIC CHANGES OF ATROPHY AND MICROVASCULAR ISCHEMIA. NO ACUTE PROCESS. EVIDENCE OF ACUTE STROKE: NO. TECHNICAL DOCUMENTATION: JOB ID: [id number] Quality ID # [id number]: Final reports with documentation of one or more dose reduction techniques (e.g., Au tomated exposure control, adjustment of the mA and/or kV according to patient size, use of iterative reconstruction technique) 2010 [employer]- All Rights Reserved Reading location - IP/workstation name: [email or web address]
--- NOTE | 2018-04-14 20:51 | RADIOLOGY REPORT (SQ) ---
EXAM DESCRIPTION: CT CERVICAL SPINE WITHOUT COMPLETED DATE/TIME: 04/14/2018 8:41 pm REASON FOR STUDY: Fall COMPARISON: 03/03/2018. TECHNIQUE: Axial images acquired through the cervical spine without intravenous contrast. Images re viewed with lung, soft tissue and bone windows. Reconstructed coronal and sagittal MPR images review ed. Images stored on PACS. All CT scanners at this facility use dose modulation, iterative reconstruction, and/or weight based d osing when appropriate to reduce radiation dose to as low as reasonably achievable (ALARA). [facility]: Dose Right [facility]: CareDose [facility]: Dose Right [facility]: Teradose 4D [facility]: Smart [employer] RADIATION DOSE: CT Rad equipment meets quality standard of care and radiation dose reduction techniq ues were employed. CTDIvol: 23.3 mGy. DLP: 556 mGy-cm. mGy. LIMITATIONS: None. FINDINGS: ALIGNMENT: Anatomic. MINERALIZATION: Normal. VERTEBRAL BODIES: No fractures or dislocation. DISCS: Multilevel disc space narrowing with osteophytes. FACETS, LATERAL MASSES, POSTERIOR ELEMENTS: Facet arthropathy. No fractures. No dislocation. No ac fond [place] findings. HARDWARE: None in the spine. VISUALIZED RIBS: No fractures. LUNG APICES AND SOFT TISSUES: No significant or acute findings. OTHER: No other significant finding. IMPRESSION: CHRONIC DEGENERATIVE CHANGES. NO ACUTE FINDINGS. TECHNICAL DOCUMENTATION: JOB ID: [id number] Quality ID # [id number]: Final reports with documentation of one or more dose reduction techniques (e.g., Au tomated exposure control, adjustment of the mA and/or kV according to patient size, use of iterative reconstruction technique) 2010 [employer]- All Rights Reserved Reading location - IP/workstation name: [email or web address]
[2018-04-14] MEDS ORDERED: NORMAL SALINE 1000 ML 500 ML IV ONE (22:59)
[2018-04-15 02:20] VITALS: BP 135/80
[2018-04-15] MEDS ORDERED: ONDANSETRON 4 MG TAB.RAPDIS ONE (02:47)
== END 2018-04-15 02:51 | disposition home or self-care (01) ==
LOC: ER 16:27
DX: M54.5 Low back pain (principal); R10.2 Pelvic and perineal pain; R05 Cough; W19.XXXA Unspecified fall, initial encounter; I10 Essential (primary) hypertension; E11.9 Type 2 diabetes mellitus without complications; J44.9 Chronic obstructive pulmonary disease, unspecified
CPT/HCPCS: 96376; 99284; 96361; 96374; 96375; 36415; 83690; 85025; 80053; 72110; 72170; 70450; 72125; J3010; J2405; J7030

== ENCOUNTER → 2018-06-03 | Outpatient (CLI) | payer MEDICARE, MEDICAID ==
--- NOTE | 2018-06-03 13:44 | RADIOLOGY REPORT (SQ) ---
EXAM DESCRIPTION: SACRUM AND COCCYX COMPLETED DATE/TIME: 06/03/2018 1:08 pm REASON FOR STUDY: LOW BACK PAIN (M54.5) M54.5 LOW BACK PAIN COMPARISON: 04/09/2018 NUMBER OF VIEWS: Three views. TECHNIQUE: AP, lateral, and tilt views of the sacrum and coccyx. LIMITATIONS: None. FINDINGS: MINERALIZATION: Normal. BONES: No acute fracture or dislocation. No worrisome bone lesions. SOFT TISSUES: No soft tissue swelling. No foreign body. OTHER: No other significant finding. IMPRESSION: NEGATIVE STUDY OF THE SACRUM AND COCCYX. TECHNICAL DOCUMENTATION: JOB ID: [id number] [employer]- All Rights Reserved Reading location - IP/workstation name: [email or web address]
--- NOTE | 2018-06-03 13:47 | RADIOLOGY REPORT (SQ) ---
EXAM DESCRIPTION: L SPINE WHOLE COMPLETED DATE/TIME: 06/03/2018 1:08 pm REASON FOR STUDY: LOW BACK PAIN (M54.5) M54.5 LOW BACK PAIN COMPARISON: None. NUMBER OF VIEWS: Five views including obliques. TECHNIQUE: AP, lateral, oblique, and sacral radiographic images acquired of the lumbar spine. LIMITATIONS: None. FINDINGS: MINERALIZATION: Osteopenia. SEGMENTATION: Normal. No transitional anatomy. ALIGNMENT: Levoscoliosis. VERTEBRAE: There are compression changes at T11 that do not appear acute. DISCS: Disc spaces are narrowed from L1 to the L4. Small marginal osteophytes are present. POSTERIOR ELEMENTS: Hypertrophic facet changes from L3-S1. HARDWARE: None in the spine. PARASPINAL SOFT TISSUES: Normal. PELVIS: Intact as visualized. No fractures or worrisome bone lesions. SI joints intact. OTHER: No other significant finding. IMPRESSION: Scoliosis, degenerative disc disease, spondylosis, and facet arthropathy. Old T11 compr ession. TECHNICAL DOCUMENTATION: JOB ID: [id number] [employer]- All Rights Reserved Reading location - IP/workstation name: [email or web address]
== END ==
LOC: RAD 12:06
PROVIDERS: ATTEND Physician Assistant
DX: M54.5 Low back pain (principal); M51.36 Other intervertebral disc degeneration, lumbar region; M41.86 Other forms of scoliosis, lumbar region
CPT/HCPCS: 72110; 72220

== ENCOUNTER 2018-06-28 08:33 | Emergency (ER) | payer MEDICARE, MEDICAID ==
[2018-06-28 08:42] VITALS: BP 121/82
--- NOTE | 2018-06-28 11:24 | ER Document Report ---
ED General - General Chief Complaint: Low Back Pain Stated Complaint: FALL/BACK PAIN Time Seen by Provider: 06/28/18 11:05 Primary Care Provider: ROSLYN TOLEDO MD [Primary Care Provider] - Follow up as needed TRAVEL OUTSIDE OF THE [place] IN LAST 30 DAYS: No - HPI Notes: Presents emergency department for evaluation of back pain. She states she fell backwards while getting into her home. She denies hitting her head or losing consciousness. No neck pain. She complains of pain in her lower back without radiation. She denies any bowel or bladder incontinence, no saddle anesthesia, no focal numbness or weakness. She does have chronic pain. I asked if she took any of her Ultram and she states that she "ran out." I asked her why she ran out really and she cannot tell me why. She does go to the pain center. She states she can get any more pain medication for 4 more days. - Related Data Allergies/Adverse Reactions: codeine Allergy (Verified 06/28/18 09:51) morphine [Morphine] Allergy (Verified 06/28/18 09:51) Past Medical History - General Information source: Patient - Social History Smoking Status: Never Smoker Chew tobacco use (# tins/day): No Frequency of alcohol use: None Drug Abuse: None Family History: Reviewed & Not Pertinent Patient has suicidal ideation: No Patient has homicidal ideation: No - Past Medical History Cardiac Medical History: Reports: Hx Hypercholesterolemia, Hx Hypertension Pulmonary Medical History: Reports: Hx COPD Neurological Medical History: Denies: Hx Seizures Endocrine Medical History: Reports: Hx Diabetes Mellitus Type 2 - "borderline" Renal/ Medical History: Reports: Hx Ovarian Cysts. Denies: Hx Peritoneal Dialysis Malignancy Medical History: Reports: Hx Cervical Cancer - uterine cancer GI Medical History: Reports: Hx Gastroesophageal Reflux Disease Musculoskeletal Medical History: Reports Hx Arthritis - back, shoulders, and neck, Reports Hx Musculoskeletal Deformity - Chronic back pain arthritis and back shoulder or neck Psychiatric Medical History: Reports: Hx Bipolar Disorder, Hx Depression Past Surgical History: Reports: Hx Section, Hx Gynecologic Surgery, Hx Hysterectomy, Hx Orthopedic Surgery, Hx Tubal Ligation - Immunizations Immunizations up to date: Yes Hx Diphtheria, Pertussis, Tetanus Vaccination: Yes Hx Pneumococcal Vaccination: 02/01/13 Review of Systems - Review of Systems Constitutional: No symptoms reported EENT: No symptoms reported Cardiovascular: No symptoms reported Respiratory: No symptoms reported Gastrointestinal: No symptoms reported Musculoskeletal: See HPI Skin: No symptoms reported Neurological/Psychological: No symptoms reported Physical Exam - Vital signs Vitals: Temp Pulse Resp BP Pulse Ox 99.5 F 103 H 18 121/82 97 06/28/18 08:41 06/28/18 08:41 06/28/18 08:41 06/28/18 08:41 06/28/18 08:41 - Notes Notes: Vital signs reviewed, please refer to chart. Patient is normocephalic, atraumatic. Pupils equal round, reactive to light. Neck is supple without meningismus. Heart is regular rate and rhythm. Lungs are clear to auscultation bilaterally. Abdomen is soft, nontender, normoactive bowel sounds throughout. Extremities without cyanosis, clubbing, edema. Peripheral pulses are equal. Skin is warm and dry. Patient is awake, alert, neurological exam is nonfocal. Examination of the spinal no midline tenderness step-off. No paraspinal musculature tenderness appreciated. No overt signs of trauma or ecchymosis is noted. Negative straight leg raise bilaterally. Unable to perform strength testing secondary to pain but sensation is intact to bilateral lower extremities. Course - Re-evaluation Re-evalutation: 06/28/18 11:24 Patient presents emergency department for evaluation of back pain after a fall. I did go out and evaluate the patient. She is here by herself. She states she drove. She asked me repeatedly for a "pain shot." I told her I did not feel comfortable giving her any narcotics here she had driven herself. She became very agitated. She asked me repeatedly why she had gotten one in the past. I explained to her that I could not answer that but I would did not feel comfortable giving her one today. She became further agitated. She refused to stay for imaging, that I had been in the process of ordering. She would not stay. I did offer to treat her with Ultram here. I did offer to help her with pain medication to go here. She stated if she did not get a shot she was leaving. She did sign AMA papers. I told her about the chances of worsening debility or undiagnosed problems that could lead to loss of current lifestyle or even . She voiced understanding to this and left AGAINST MEDICAL ADVICE. - Vital Signs Vital signs: Temp Pulse Resp BP Pulse Ox 99.5 F 103 H 18 121/82 97 06/28/18 08:41 06/28/18 08:41 06/28/18 08:41 06/28/18 08:41 06/28/18 08:41 Discharge - Discharge Clinical Impression: Left against medical advice Disposition: AGAINST MEDICAL ADVICE Referrals: ROSLYN TOLEDO MD [Primary Care Provider] - Follow up as needed
== END 2018-06-28 11:17 | disposition left against medical advice (07) ==
LOC: ER 08:33
DX: Z53.21 Procedure and treatment not carried out due to patient leaving prior to being seen by health care provider (principal); M54.5 Low back pain; M54.9 Dorsalgia, unspecified; W19.XXXA Unspecified fall, initial encounter; Y92.009 Unspecified place in unspecified non-institutional (private) residence as the place of occurrence of the external cause; G89.18 Other acute postprocedural pain; I10 Essential (primary) hypertension; J44.9 Chronic obstructive pulmonary disease, unspecified; E11.9 Type 2 diabetes mellitus without complications
CPT/HCPCS: 99283

== ENCOUNTER → 2018-07-15 | Day surgery (SDC) | payer MEDICARE, MEDICAID ==
[~2018-07-15] MED LIST: BUPIVACAINE HCL 0.5 % INJ/PF 30 ML SDV ONE; LIDOCAINE 1% INJ-PF (10 MG/ML) 30 ML SDV ONE
--- NOTE | 2018-07-15 08:31 | Operative Report ---
PREOPERATIVE DIAGNOSIS: Spondylolisis without myopathy or radiculopathy M47.818// Lumbar Sacral Spondylolisis without myopathy or radiculopathy M47.817 POSTOPERATIVE DIAGNOSIS:Spondylolisis without myopathy or radiculopathy M47.818// Lumbar Sacral Spondylolisis without myopathy or radiculopathy M47.817 PROCEDURE: 1. Radiofrequency Ablation of bilateral L5 dorsal Ramus 2. Sacroiliac Joint Ablation - Lateral Branches of bilateral S1, S2, S3 DATE OF PROCEDURE: July 15, 2018 ANESTHESIA: Local COMPLICATIONS: None CONSENT: A full description of the procedure was provided including benefits as well as possible complications. All questions were answered and informed consent was given and signed. ASA guidelines for fasting were verified prior to sed ation. PROCEDURE IN DETAIL The patient was brought into the fluoroscopy suite and carefully assisted into the prone position on the fluoroscopy table and allowed to adjust to a position of comfort. A grounding pad was placed on the right thigh. The low back and buttocks were widely prepped with a chloraprep solution, allowed to air dry and draped in standard sterile surgical fashion. Local anesthesia was provided by 12 mL of 1 % lidocaine delivered with a 25 g needle. PROCEDURE #1: Radiofrequency Ablation of Dorsal Ramus of bilateral L5. A 17g 75mm radiofrequency introducer needle was placed to the planned anatomic target, guided with intermittent fluoroscopy with a perpendicular approach, to terminally place at the bilateral sacral ala. The stylets were removed and the radiofrequency probes with a 4mm active tip were then inserted. Needle tip position of the probes were verified in the AP, oblique, and lateral views. At each site, the medial branch nerve was stimulated at 2Hz to a maximum of 1- 2volts determined to finalize safe needle and electrode placement. The patient was awake and responsive during this portion of the procedure. Each target was anesthetized with 2mL of 2 % Sensorcaine anesthesia for lesioning and then each target was lesioned at 80 degrees Celsius for 2 minutes and 30 seconds. Tissue impedences were noted to be between 250 and 500 Ohms. PROCEDURE #2: Radiofrequency Ablation of bilateral S1, S2, S3 Lateral Branches Using the AP fluoroscopic view for visualization of the lateral PSFA as defined by the pre-placed 27-gauge Quincke needles, appropriate skin starting positions were defined. Using the PSFA as a "clock-face", the positions were: S1; bilateral = 1 and 5 oclock S2; bilateral = 1 and 5 oclock S3; bilateral = 3 oclock Using fluoroscopic guidance, a 17g introducer needle was inserted sequentially onto the target positions described above until the introducer tip touched the bony surface of the sacrum. The stylet was withdrawn from the introducer and the radiofrequency probe with a 4 mm active tip was fully inserted into the introducer. A lateral view was obtained for standard reference. At each of the targets, needle placement was verified with the use of multi-planar fluoroscopy. The needle tip position was approximately 7 - 10mm lateral to the PSFA as determined by using an Epsilon ruler. At each site, the lateral branch nerve was stimulated at 2 Hz to a maximum of 1- 2 volts determined to finalize safe needle and electrode placement. The patient was awake and responsive during this portion of the procedure. Each target was anesthetized with 2 mL of 2 % Sensorcaine anesthesia for lesioning and then each target was lesioned at 80 degrees Celsius for 2 minutes and 30 seconds. Tissue impedences were noted to be between 250- 500 Ohms. At the conclusion of the lesioning the needles were removed and bandages placed over the needle placement sites and the patient returned to the supine position on a stretcher and transported to the recovery room without hemodynamic, neurologic, or allergic reactions. Fluoroscopic images were printed for hard copy recording and digitally archived. FLUOROSCOPIC INTERPRETATION: Appropriate epidurogram obtained. Appropriate lesioning of the 10 targets noted. POST PROCEDURE EVALUATION: The patient was comfortable in the recovery room. The patient is aware that pain may worsen before remitting and 4 6 weeks may be required prior to the onset of pain relief. IMPRESSION: 1. Technically successful sacral lateral branch, lumbar dorsal ramus for denervation from L5-S3 on the bilateral without complication. 2. RTC in 2 weeks. 3. Estimated Blood Loss: None 4. Fluoroscopy time: 30 seconds
== END ==
LOC: RAD 07:56 → EDSTATUS 14:49
PROVIDERS: ATTEND Family Medicine
DX: M47.817 Spondylosis without myelopathy or radiculopathy, lumbosacral region (principal); M47.818 Spondylosis without myelopathy or radiculopathy, sacral and sacrococcygeal region
CPT/HCPCS: 64635; 64640 ×3; J3490 ×2

== ENCOUNTER 2018-07-16 11:08 | Inpatient (IN) | payer MEDICARE, MEDICAID ==
[2018-07-16] MEDS: NORMAL SALINE 1000 ML 1,000 ML IV PRN ×2 (12:00→21:32)
[2018-07-16 13:31] LABS: ABSOLUTE LYMPHOCYTES (AUTO) 1.7 10^3/uL (0.5-4.7); ABSOLUTE MONOCYTES (AUTO) 0.7 10^3/uL (0.1-1.4); ABSOLUTE NEUT (AUTO) 6.6 10^3/uL (1.7-8.2); BASOPHILS % (AUTO) 0.4 % (0-2); EOSINOPHILS % (AUTO) 0.3 % (0-6); HEMATOCRIT 35.6 % (36.0-47.0); HEMOGLOBIN 12.3 g/dL (12.0-15.5); LYMPHOCYTES % (AUTO) 18.9 % (13-45); MEAN CORPUSCULAR HEMOGLOBIN 28.4 pg (27.0-33.4); MEAN CORPUSCULAR HGB CONC 34.4 g/dL (32.0-36.0); MEAN CORPUSCULAR VOLUME 83 fl (80-97); PLATELET COUNT 372 10^3/uL (150-450); RED BLOOD COUNT 4.32 10^6/uL (3.72-5.28); RED CELL DISTRIBUTION WIDTH 15.4 % (11.5-14.0); SEGMENTED NEUTROPHILS % (AUTO) 72.4 % (42-78); TOTAL CELLS COUNTED % (AUTO) 100 %; WHITE BLOOD COUNT 9.1 10^3/uL (4.0-10.5)
[2018-07-16 13:47] LABS: ALANINE AMINOTRANSFERASE 40 U/L (9-52); ALBUMIN 4.1 g/dL (3.5-5.0); ALKALINE PHOSPHATASE 70 U/L (38-126); ANION GAP 12 (5-19); ASPARTATE AMINO TRANSFERASE 38 U/L (14-36); BILIRUBIN,DIRECT 0.2 mg/dL (0.0-0.4); BILIRUBIN,TOTAL 0.6 mg/dL (0.2-1.3); BLOOD UREA NITROGEN 12 mg/dL (7-20); CALCIUM 9.3 mg/dL (8.4-10.2); CARBON DIOXIDE 27 mmol/L (22-30); CHLORIDE 97 mmol/L (98-107); GLUCOSE 94 mg/dL (75-110); POTASSIUM 3.2 mmol/L (3.6-5.0); SODIUM 135.7 mmol/L (137-145); TOTAL PROTEIN 6.7 g/dL (6.3-8.2)
[2018-07-16] MEDS ORDERED: (PENDING PHARMACY ID) (Dapagliflozin Propanediol [Farxiga] 10 MG) PO SCH (17:45)
[2018-07-16] MEDS ORDERED: (PENDING PHARMACY ID) (Ranitidine Hcl [Zantac 150 Mg Tablet] 150 MG) PO SCH (18:00)
[2018-07-16] MEDS ORDERED: (PENDING PHARMACY ID) (Sitagliptin Phos/Metformin Hcl [Janumet Xr 100-1,000 Mg Tablet] 1 E PO SCH (18:00)
[2018-07-16] MEDS ORDERED: VALSARTAN 160 MG TABLET PO ONE (19:00)
[2018-07-16] MEDS ORDERED: HYDROCHLOROTHIAZIDE 25 MG TABLET PO ONE (19:00)
--- NOTE | 2018-07-16 20:37 | PDOC H&P ---
History of Present Illness Admission Date/PCP: 07/16/18 11:08 ROSLYN TOLEDO MD History of Present Illness: ALANA ROMERO is a 77 year old female, She was recently diagnosed with type 2 diabetes mellitus, she came to the office this morning without any appointment for evaluation of vomiting, malaise, she stated that she is not able to keep any food down she said "please do not let me ,please help me" she was admitted from the office to the hospital for management. The comprehensive metabolic panel showed hypokalemia she was clinically dehydrated with dry oral mucosa and loss of skin turgor Past Medical History Cardiac Medical History: Reports: Hyperlipidema, Hypertension Pulmonary Medical History: Reports: Chronic Obstructive Pulmonary Disease (COPD) Endocrine Medical History: Reports: Diabetes Mellitus Type 2 - "borderline" Malignancy Medical History: Reports: Cervical Cancer - uterine cancer GI Medical History: Reports: Gastroesophageal Reflux Disease Musculoskeltal Medical History: Reports: Arthritis - back, shoulders, and neck Psychiatric Medical History: Reports: Bipolar Disorder, Depression Past Surgical History Past Surgical History: Reports: Section, Hysterectomy, Orthopedic Surgery, Tubal Ligation Social History Smoking Status: Never Smoker Frequency of Alcohol Use: None Hx Recreational Drug Use: No Drugs: None Hx Prescription Drug Abuse: No Family History Family History: Reviewed & Not Pertinent Parental Family History Reviewed: Yes Children Family History Reviewed: Yes Sibling(s) Family History Reviewed.: Yes Medication/Allergy Home Medications: Dapagliflozin Propanediol [Farxiga] 10 mg PO DAILY 07/16/18 Dexlansoprazole [Dexilant 60 mg Capsule] 60 mg PO DAILY 07/16/18 Mirtazapine 45 mg PO QHS 07/16/18 Pramipexole Di-HCl [Mirapex 0.5 Mg Tablet] 0.5 mg PO BID 07/16/18 Ranitidine HCl [Zantac 150 mg Tablet] 150 mg PO BID 07/16/18 Sitagliptin Phos/Metformin HCl [Janumet Xr 100-1,000 mg Tablet] 1 each PO QPM 07/16/18 Valsartan/Hydrochlorothiazide [Valsartan-Hctz 160-25 mg Tab] 1 each PO DAILY 07/16/18 Allergies/Adverse Reactions: codeine Allergy (Verified 06/28/18 09:51) morphine [Morphine] Allergy (Verified 06/28/18 09:51) Review of Systems Constitutional: PRESENT: fatigue, weakness Eyes: ABSENT: visual disturbances Ears: ABSENT: hearing changes Cardiovascular: ABSENT: chest pain, dyspnea on exertion, edema, orthropnea, palpitations Respiratory: ABSENT: cough, hemoptysis Gastrointestinal: PRESENT: vomiting Genitourinary: ABSENT: dysuria, hematuria Musculoskeletal: ABSENT: joint swelling Integumentary: ABSENT: rash, wounds Neurological: ABSENT: abnormal gait, abnormal speech, confusion, dizziness, focal weakness, syncope Psychiatric: ABSENT: anxiety, depression, homidical ideation, suicidal ideation Endocrine: ABSENT: cold intolerance, heat intolerance, menstrual abnormalities, polydipsia, polyuria Hematologic/Lymphatic: ABSENT: easy bleeding, easy bruising, lymphadenopathy Physical Exam Vital Signs: Temp Pulse Resp BP Pulse Ox 98.4 F 93 18 132/71 H 94 07/16/18 15:15 07/16/18 19:00 07/16/18 15:15 07/16/18 15:15 07/16/18 15:15 Intake & Output 07/15/18 07/16/18 07/17/18 06:59 06:59 06:59 Intake Total 532 Balance 532 Weight 76.5 kg General appearance: PRESENT: mild distress Head exam: PRESENT: atraumatic, normocephalic Eye exam: PRESENT: PERRLA Mouth exam: PRESENT: dry mucosa Neck exam: PRESENT: full ROM Respiratory exam: PRESENT: clear to auscultation isak Cardiovascular exam: PRESENT: RRR, +S1, +S2 Pulses: PRESENT: normal dorsalis pedis pul, +2 pedal pulses bilateral Vascular exam: PRESENT: normal capillary refill GI/Abdominal exam: PRESENT: normal bowel sounds, soft Rectal exam: PRESENT: deferred Neurological exam: PRESENT: alert, awake, oriented to person, oriented to place, oriented to time, oriented to situation, CN II-XII grossly intact Psychiatric exam: PRESENT: appropriate affect, normal mood Skin exam: PRESENT: dry, intact, warm Results Laboratory Results: 07/16/18 13:12 07/16/18 13:12 07/16/18 07/16/18 13:12 13:12 WBC 9.1 RBC 4.32 Hgb 12.3 Hct 35.6 L MCV 83 MCH 28.4 MCHC 34.4 RDW 15.4 H Plt Count 372 Seg Neutrophils % 72.4 Lymphocytes % 18.9 Monocytes % 8.0 Eosinophils % 0.3 Basophils % 0.4 Absolute Neutrophils 6.6 Absolute Lymphocytes 1.7 Absolute Monocytes 0.7 Absolute Eosinophils 0.0 Absolute Basophils 0.0 Sodium 135.7 L Potassium 3.2 L Chloride 97 L Carbon Dioxide 27 Anion Gap 12 BUN 12 Creatinine 0.81 Est GFR ( Amer) > 60 Est GFR (Non-Af Amer) > 60 Glucose 94 Calcium 9.3 Total Bilirubin 0.6 AST 38 H ALT 40 Alkaline Phosphatase 70 Total Protein 6.7 Albumin 4.1 Assessment & Plan - Diagnosis (1) Dehydration Is this a current diagnosis for this admission?: Yes Plan: There is dehydration from persistent vomiting she will be treated with normal saline to restore volume (2) Vomiting Qualifiers: Vomiting type: unspecified Vomiting Intractability: intractable Nausea presence: with nausea Qualified Code(s): R11.2 - Nausea with vomiting, unspecified Is this a current diagnosis for this admission?: Yes Plan: She continues to vomit, she is admitted for hydration to prevent dehydration there is clinical evidence of dehydration (3) Hypokalemia Is this a current diagnosis for this admission?: Yes Plan: This is due to vomiting, this will be replenished (4) T2DM (type 2 diabetes mellitus) Qualifiers: Diabetes mellitus skilled nursing insulin use: without exterminator use Diabetes mellitus complication status: without complication Qualified Code(s): E11.9 - Type 2 diabetes mellitus without complications Is this a current diagnosis for this admission?: Yes (5) Bipolar 1 disorder, depressed Is this a current diagnosis for this admission?: Yes
[2018-07-16] MEDS: POTASSIUM CHLORIDE 20 MEQ/15 ML UDCUP PO SCH (20:42)
[2018-07-16] MEDS: PRAMIPEXOLE DI-HCL 0.5 MG TABLET PO SCH (20:42)
[2018-07-16] MEDS: FAMOTIDINE 20 MG TABLET PO SCH (21:33)
[2018-07-16] MEDS: MIRTAZAPINE 15 MG TABLET PO SCH (21:33)
[2018-07-16] MEDS ORDERED: (PENDING PHARMACY ID) (Mirtazapine [Mirtazapine] 45 MG) PO SCH (22:00)
[2018-07-17] MEDS: ACETAMINOPHEN 325 MG TABLET PO PRN ×2 (01:33→09:54)
[2018-07-17] MEDS: ONDANSETRON HCL INJ/PF 4 MG/2 ML SDV IV PRN ×4 (01:33→18:45)
[2018-07-17] MEDS: NORMAL SALINE 1000 ML 1,000 ML IV PRN ×3 (05:33→22:10)
[2018-07-17 09:24] LABS: ABSOLUTE BASOPHILS # (AUTO) 0.1 10^3/uL (0.0-0.2); ABSOLUTE EOSINOPHILS # (AUTO) 0.1 10^3/uL (0.0-0.6); ABSOLUTE LYMPHOCYTES (AUTO) 1.5 10^3/uL (0.5-4.7); ABSOLUTE MONOCYTES (AUTO) 0.7 10^3/uL (0.1-1.4); BASOPHILS % (AUTO) 0.8 % (0-2); EOSINOPHILS % (AUTO) 0.7 % (0-6); HEMATOCRIT 34.1 % (36.0-47.0); HEMOGLOBIN 11.9 g/dL (12.0-15.5); LYMPHOCYTES % (AUTO) 18.1 % (13-45); MEAN CORPUSCULAR HEMOGLOBIN 28.7 pg (27.0-33.4); MEAN CORPUSCULAR VOLUME 82 fl (80-97); MONOCYTES % (AUTO) 8.5 % (3-13); PLATELET COUNT 330 10^3/uL (150-450); RED BLOOD COUNT 4.15 10^6/uL (3.72-5.28); RED CELL DISTRIBUTION WIDTH 15.7 % (11.5-14.0); SEGMENTED NEUTROPHILS % (AUTO) 71.9 % (42-78); TOTAL CELLS COUNTED % (AUTO) 100 %; WHITE BLOOD COUNT 8.3 10^3/uL (4.0-10.5)
[2018-07-17 09:37] LABS: ALANINE AMINOTRANSFERASE 26 U/L (9-52); ALBUMIN 3.3 g/dL (3.5-5.0); ALKALINE PHOSPHATASE 58 U/L (38-126); ANION GAP 10 (5-19); ASPARTATE AMINO TRANSFERASE 30 U/L (14-36); BILIRUBIN,DIRECT 0.3 mg/dL (0.0-0.4); BILIRUBIN,TOTAL 0.5 mg/dL (0.2-1.3); BLOOD UREA NITROGEN 8 mg/dL (7-20); CALCIUM 8.1 mg/dL (8.4-10.2); CARBON DIOXIDE 22 mmol/L (22-30); CHLORIDE 103 mmol/L (98-107); GLUCOSE 138 mg/dL (75-110); TOTAL PROTEIN 5.6 g/dL (6.3-8.2)
[2018-07-17] MEDS: POTASSIUM CHLORIDE 20 MEQ/15 ML UDCUP PO SCH (09:54)
[2018-07-17] MEDS: PRAMIPEXOLE DI-HCL 0.5 MG TABLET PO SCH ×2 (09:54→18:46)
[2018-07-17] MEDS: PANTOPRAZOLE SODIUM 40 MG TABLET.DR PO SCH (09:54)
[2018-07-17] MEDS: FAMOTIDINE 20 MG TABLET PO SCH ×2 (09:54→22:10)
[2018-07-17] MEDS ORDERED: (PENDING PHARMACY ID) (Valsartan/Hydrochlorothiazide [Valsartan-Hctz 160-25 Mg Tab] 1 EACH PO SCH (10:00)
--- NOTE | 2018-07-17 11:50 | PDOC PROGRESS REPORT ---
Subjective Progress Note for:: 07/17/18 Subjective:: Patient was admitted in the hospital for the dehydration's hypokalemia Patient is currently doing well Patient also have a chronic back problem and taking the pain medications Reason For Visit: NEW ONSET DIABETES,UNCONTROLLED DIABETES,VOMITING Physical Exam Vital Signs: Temp Pulse Resp BP Pulse Ox 98.5 F 80 18 127/60 H 99 07/17/18 07:57 07/17/18 07:57 07/17/18 07:57 07/17/18 07:57 07/17/18 07:57 Intake & Output 07/16/18 07/17/18 07/18/18 06:59 06:59 06:59 Intake Total 3014 Balance 3014 Weight 72.9 kg General appearance: PRESENT: no acute distress, well-developed, well-nourished Head exam: PRESENT: atraumatic, normocephalic Eye exam: PRESENT: conjunctiva pink, EOMI, PERRLA. ABSENT: scleral icterus Ear exam: PRESENT: normal external ear exam Mouth exam: PRESENT: moist, tongue midline Neck exam: PRESENT: full ROM. ABSENT: carotid bruit, JVD, lymphadenopathy, thyromegaly Respiratory exam: PRESENT: clear to auscultation isak Cardiovascular exam: PRESENT: RRR. ABSENT: diastolic murmur, rubs, systolic murmur Vascular exam: PRESENT: normal capillary refill GI/Abdominal exam: PRESENT: normal bowel sounds, soft. ABSENT: distended, guarding, mass, organolmegaly, rebound, tenderness Rectal exam: PRESENT: deferred Neurological exam: PRESENT: alert, awake, oriented to person, oriented to place, oriented to time, oriented to situation, CN II-XII grossly intact. ABSENT: motor sensory deficit Psychiatric exam: PRESENT: appropriate affect, normal mood. ABSENT: homicidal ideation, suicidal ideation Skin exam: PRESENT: dry, intact, warm. ABSENT: cyanosis, rash Results Laboratory Results: 07/17/18 09:07 07/17/18 09:07 07/16/18 07/16/18 07/17/18 13:12 13:12 09:07 WBC 9.1 8.3 RBC 4.32 4.15 Hgb 12.3 11.9 L Hct 35.6 L 34.1 L MCV 83 82 MCH 28.4 28.7 MCHC 34.4 35.0 RDW 15.4 H 15.7 H Plt Count 372 330 Seg Neutrophils % 72.4 71.9 Lymphocytes % 18.9 18.1 Monocytes % 8.0 8.5 Eosinophils % 0.3 0.7 Basophils % 0.4 0.8 Absolute Neutrophils 6.6 6.0 Absolute Lymphocytes 1.7 1.5 Absolute Monocytes 0.7 0.7 Absolute Eosinophils 0.0 0.1 Absolute Basophils 0.0 0.1 Sodium 135.7 L Potassium 3.2 L Chloride 97 L Carbon Dioxide 27 Anion Gap 12 BUN 12 Creatinine 0.81 Est GFR ( Amer) > 60 Est GFR (Non-Af Amer) > 60 Glucose 94 Calcium 9.3 Total Bilirubin 0.6 AST 38 H ALT 40 Alkaline Phosphatase 70 Total Protein 6.7 Albumin 4.1 07/17/18 09:07 WBC RBC Hgb Hct MCV MCH MCHC RDW Plt Count Seg Neutrophils % Lymphocytes % Monocytes % Eosinophils % Basophils % Absolute Neutrophils Absolute Lymphocytes Absolute Monocytes Absolute Eosinophils Absolute Basophils Sodium 135.0 L Potassium 3.0 L* Chloride 103 Carbon Dioxide 22 Anion Gap 10 BUN 8 Creatinine 0.72 Est GFR ( Amer) > 60 Est GFR (Non-Af Amer) > 60 Glucose 138 H Calcium 8.1 L Total Bilirubin 0.5 AST 30 ALT 26 Alkaline Phosphatase 58 Total Protein 5.6 L Albumin 3.3 L Assessment & Plan - Diagnosis (1) Dehydration Is this a current diagnosis for this admission?: Yes Plan: Continues IV fluid (2) Hypokalemia Is this a current diagnosis for this admission?: Yes Plan: Placed the potassiums May be considered to the HCTZ to reduce the dose (3) T2DM (type 2 diabetes mellitus) Qualifiers: Diabetes mellitus intermodal customer service insulin use: without residential use Diabetes mellitus complication status: without complication Qualified Code(s): E11.9 - Type 2 diabetes mellitus without complications Is this a current diagnosis for this admission?: Yes Plan: Tony a current medications (4) Bipolar 1 disorder Is this a current diagnosis for this admission?: Yes (5) Back pain Qualifiers: Sciatica laterality: sciatica laterality unspecified Is this a current diagnosis for this admission?: Yes Plan: Currently see a pain management continues to current pain medications - Time Time Spent with patient: 15-24 minutes Medications reviewed and adjusted accordingly: Yes Anticipated discharge: Other Within: Other - Plan Summary Plan Summary: Continues to current medication
[2018-07-17] MEDS ORDERED: POTASSIUM CHLORIDE 20 MEQ/15 ML UDCUP PO ONE (14:00)
[2018-07-17] MEDS: OXYCODONE HCL IR 5 MG TABLET PO PRN (14:14)
[2018-07-17] MEDS ORDERED: HYDROCHLOROTHIAZIDE 25 MG TABLET PO SCH (18:00)
[2018-07-17] MEDS ORDERED: VALSARTAN 160 MG TABLET PO SCH (18:00)
[2018-07-17] MEDS: VALSARTAN 80 MG TABLET PO SCH (18:46)
[2018-07-17] MEDS: MIRTAZAPINE 15 MG TABLET PO SCH (22:10)
[2018-07-18] MEDS: OXYCODONE HCL IR 5 MG TABLET PO PRN ×3 (01:05→22:24)
[2018-07-18] MEDS: NORMAL SALINE 1000 ML 1,000 ML IV PRN ×2 (06:30→18:47)
[2018-07-18] MEDS: ACETAMINOPHEN 325 MG TABLET PO PRN (06:33)
[2018-07-18 07:27] LABS: ABSOLUTE BASOPHILS # (AUTO) 0.1 10^3/uL (0.0-0.2); ABSOLUTE EOSINOPHILS # (AUTO) 0.1 10^3/uL (0.0-0.6); ABSOLUTE LYMPHOCYTES (AUTO) 1.9 10^3/uL (0.5-4.7); ABSOLUTE MONOCYTES (AUTO) 0.7 10^3/uL (0.1-1.4); BASOPHILS % (AUTO) 1.3 % (0-2); HEMATOCRIT 34.5 % (36.0-47.0); LYMPHOCYTES % (AUTO) 24.4 % (13-45); MEAN CORPUSCULAR HEMOGLOBIN 28.5 pg (27.0-33.4); MEAN CORPUSCULAR HGB CONC 34.8 g/dL (32.0-36.0); MEAN CORPUSCULAR VOLUME 82 fl (80-97); MONOCYTES % (AUTO) 8.9 % (3-13); PLATELET COUNT 333 10^3/uL (150-450); RED BLOOD COUNT 4.21 10^6/uL (3.72-5.28); RED CELL DISTRIBUTION WIDTH 15.7 % (11.5-14.0); SEGMENTED NEUTROPHILS % (AUTO) 64.4 % (42-78); TOTAL CELLS COUNTED % (AUTO) 100 %; WHITE BLOOD COUNT 7.8 10^3/uL (4.0-10.5)
[2018-07-18 07:45] LABS: ANION GAP 10 (5-19); BLOOD UREA NITROGEN 4 mg/dL (7-20); CARBON DIOXIDE 21 mmol/L (22-30); CHLORIDE 103 mmol/L (98-107); GLUCOSE 92 mg/dL (75-110); POTASSIUM 3.4 mmol/L (3.6-5.0); SODIUM 133.6 mmol/L (137-145)
--- NOTE | 2018-07-18 10:34 | PDOC PROGRESS REPORT ---
Subjective Progress Note for:: 07/18/18 Subjective:: Patient is complaining of something stuck in the stomach Patients feel weak Patient is denied any chest pain to than any shortness of the breath patient's potassium is all stable Reason For Visit: NEW ONSET DIABETES,UNCONTROLLED DIABETES,VOMITING Physical Exam Vital Signs: Temp Pulse Resp BP Pulse Ox 99.0 F 91 18 114/50 L 96 07/18/18 08:00 07/18/18 08:00 07/18/18 08:00 07/18/18 08:00 07/18/18 08:00 Intake & Output 07/17/18 07/18/18 07/19/18 06:59 06:59 06:59 Intake Total 3014 4002 Balance 3014 4002 Weight 72.9 kg 74.2 kg General appearance: PRESENT: no acute distress, well-developed, well-nourished Head exam: PRESENT: atraumatic, normocephalic Eye exam: PRESENT: conjunctiva pink, EOMI, PERRLA. ABSENT: scleral icterus Ear exam: PRESENT: normal external ear exam Mouth exam: PRESENT: moist, tongue midline Neck exam: PRESENT: full ROM. ABSENT: carotid bruit, JVD, lymphadenopathy, thyromegaly Respiratory exam: PRESENT: clear to auscultation isak Cardiovascular exam: PRESENT: RRR. ABSENT: diastolic murmur, rubs, systolic murmur Vascular exam: PRESENT: normal capillary refill GI/Abdominal exam: PRESENT: normal bowel sounds, soft. ABSENT: distended, guarding, mass, organolmegaly, rebound, tenderness Rectal exam: PRESENT: deferred Extremities exam: ABSENT: pedal edema Musculoskeletal exam: PRESENT: ambulatory Neurological exam: PRESENT: alert, awake, oriented to person, oriented to place, oriented to time, oriented to situation, CN II-XII grossly intact. ABSENT: motor sensory deficit Psychiatric exam: PRESENT: appropriate affect, normal mood. ABSENT: homicidal ideation, suicidal ideation Skin exam: PRESENT: dry, intact, warm. ABSENT: cyanosis, rash Results Laboratory Results: 07/18/18 06:46 07/18/18 06:46 07/18/18 07/18/18 06:46 06:46 WBC 7.8 RBC 4.21 Hgb 12.0 Hct 34.5 L MCV 82 MCH 28.5 MCHC 34.8 RDW 15.7 H Plt Count 333 Seg Neutrophils % 64.4 Lymphocytes % 24.4 Monocytes % 8.9 Eosinophils % 1.0 Basophils % 1.3 Absolute Neutrophils 5.0 Absolute Lymphocytes 1.9 Absolute Monocytes 0.7 Absolute Eosinophils 0.1 Absolute Basophils 0.1 Sodium 133.6 L Potassium 3.4 L Chloride 103 Carbon Dioxide 21 L Anion Gap 10 BUN 4 L Creatinine 0.59 Est GFR ( Amer) > 60 Est GFR (Non-Af Amer) > 60 Glucose 92 Calcium 8.0 L Assessment & Plan - Diagnosis (1) Dehydration Is this a current diagnosis for this admission?: Yes Plan: Continues IV fluid (2) Hypokalemia Is this a current diagnosis for this admission?: Yes Plan: Placed the potassiums May be considered to the HCTZ to reduce the dose (3) T2DM (type 2 diabetes mellitus) Qualifiers: Diabetes mellitus care home insulin use: without watermelon harvesting supervisor use Diabetes mellitus complication status: without complication Qualified Code(s): E11.9 - Type 2 diabetes mellitus without complications Is this a current diagnosis for this admission?: Yes Plan: Tony a current medications (4) Bipolar 1 disorder Is this a current diagnosis for this admission?: Yes (5) Back pain Qualifiers: Sciatica laterality: sciatica laterality unspecified Is this a current diagnosis for this admission?: Yes Plan: Currently see a pain management continues to current pain medications (6) Urinary tract infection due to Klebsiella species Is this a current diagnosis for this admission?: Yes Plan: we will start the patient on Cipro (7) Dysphagia Qualifiers: Dysphagia type: unspecified Qualified Code(s): R13.10 - Dysphagia, unspecified Is this a current diagnosis for this admission?: Yes Plan: Will get the esophageal x-ray - Time Time Spent with patient: 15-24 minutes Medications reviewed and adjusted accordingly: Yes Anticipated discharge: Home Within: Other - Plan Summary Plan Summary: We will start the patient on PPI Start the patient on antibiotic
[2018-07-18] MEDS: PRAMIPEXOLE DI-HCL 0.5 MG TABLET PO SCH ×2 (11:26→18:46)
[2018-07-18] MEDS: FAMOTIDINE 20 MG TABLET PO SCH ×2 (11:26→22:24)
[2018-07-18] MEDS: POTASSIUM CHLORIDE 20 MEQ/15 ML UDCUP PO SCH (11:26)
[2018-07-18] MEDS: PANTOPRAZOLE SODIUM 40 MG TABLET.DR PO SCH (11:27)
[2018-07-18] MEDS ORDERED: HYDROCHLOROTHIAZIDE 25 MG TABLET PO SCH (18:00)
[2018-07-18] MEDS: HYDROCHLOROTHIAZIDE 12.5 MG TABLET PO SCH (18:46)
[2018-07-18] MEDS: VALSARTAN 80 MG TABLET PO SCH (18:46)
[2018-07-18] MEDS: ONDANSETRON HCL INJ/PF 4 MG/2 ML SDV IV PRN (18:46)
[2018-07-18] MEDS: MIRTAZAPINE 15 MG TABLET PO SCH (22:23)
[2018-07-18] MEDS: CIPROFLOXACIN HCL 500 MG TABLET PO SCH (22:23)
[2018-07-19 06:42] LABS: ANION GAP 10 (5-19); BLOOD UREA NITROGEN 3 mg/dL (7-20); CARBON DIOXIDE 22 mmol/L (22-30); CHLORIDE 104 mmol/L (98-107); GLUCOSE 86 mg/dL (75-110); POTASSIUM 3.3 mmol/L (3.6-5.0); SODIUM 136.1 mmol/L (137-145)
[2018-07-19] MEDS: NORMAL SALINE 1000 ML 1,000 ML IV PRN ×2 (06:52→17:25)
[2018-07-19] MEDS: FAMOTIDINE 20 MG TABLET PO SCH ×2 (09:48→21:00)
[2018-07-19] MEDS: PRAMIPEXOLE DI-HCL 0.5 MG TABLET PO SCH ×2 (09:48→17:25)
[2018-07-19] MEDS: POTASSIUM CHLORIDE 20 MEQ/15 ML UDCUP PO SCH (09:48)
[2018-07-19] MEDS: CIPROFLOXACIN HCL 500 MG TABLET PO SCH ×2 (09:48→21:00)
[2018-07-19] MEDS: PANTOPRAZOLE SODIUM 40 MG TABLET.DR PO SCH (09:48)
[2018-07-19] MEDS: OXYCODONE HCL IR 5 MG TABLET PO PRN ×2 (11:38→21:02)
--- NOTE | 2018-07-19 16:19 | RADIOLOGY REPORT (SQ) ---
EXAM DESCRIPTION: BARIUM SWALLOW ESOPHAGUS COMPLETED DATE/TIME: 07/19/2018 9:17 am REASON FOR STUDY: dysphagia E11.9 TYPE 2 DIABETES MELLITUS WITHOUT COMPLICATIONS COMPARISON: None. TECHNIQUE: Under fluoroscopic guidance, patient ingested effervescent granules followed by thick and thin barium. Fluoroscopic spot images and routine radiographic images acquired and stored on PACS. 12 MM BARIUM TABLET GIVEN: The patient swallowed a 12 mm barium tablet which passed easily through th e esophagus and into the stomach without delay. LIMITATIONS: None. FLUOROSCOPY TIME: FLUORO TIME: 1.26 minutes 5 images saved to PACS. FINDINGS: NEUROMUSCULAR COORDINATION OF SWALLOW: Normal. No aspiration. Small Zenker's diverticulum present. ESOPHAGEAL MOTILITY: Mild to moderate tertiary contractions. ESOPHAGEAL MUCOSA: Normal mucosa without masses or ulceration. GASTRO-ESOPHAGEAL JUNCTION: No hiatal hernia or reflux. NON-GI TRACT STRUCTURES: No significant finding. OTHER: No other significant finding. IMPRESSION: MILD TO MODERATE TERTIARY CONTRACTIONS. OTHERWISE UNREMARKABLE STUDY. . RECOMMENDATION: NONE COMMENT: NONE Quality ID [id number]: Final reports for procedures using fluoroscopy that document radiation exposure tanesha michelle, or exposure time and number of fluorographic images (if radiation exposure indices are not avail able) TECHNICAL DOCUMENTATION: JOB ID: [id number] [employer]- All Rights Reserved Reading location - IP/workstation name: [email or web address]
[2018-07-19] MEDS: HYDROCHLOROTHIAZIDE 12.5 MG TABLET PO SCH (17:25)
[2018-07-19] MEDS: VALSARTAN 80 MG TABLET PO SCH (17:26)
[2018-07-19] MEDS: ONDANSETRON HCL INJ/PF 4 MG/2 ML SDV IV PRN ×2 (17:28→21:53)
--- NOTE | 2018-07-19 18:46 | PDOC PROGRESS REPORT ---
Subjective Progress Note for:: 07/19/18 Subjective:: Patient was seen by the bedside, she was admitted last week for evaluation of vomiting, not able to keep any food down, she was seen by the bedside today, she stated that whenever she eats, she feels discomfort in the epigastrium and then she will vomit. A barium swallow study was done today, it was negative other than tertiary contractions, consultation will be obtain from GI for EGD. Reason For Visit: DEHYDRATION,HYPOKALEMIA,UTI,DYSPHAGIA,DM2 Physical Exam Vital Signs: Temp Pulse Resp BP Pulse Ox 99.4 F 86 16 127/64 H 97 07/19/18 15:24 07/19/18 15:24 07/19/18 15:24 07/19/18 15:24 07/19/18 15:24 Intake & Output 07/18/18 07/19/18 07/20/18 06:59 06:59 06:59 Intake Total 4002 3770 1766 Output Total 500 Balance 4002 3770 1266 Weight 74.2 kg 75.3 kg General appearance: PRESENT: no acute distress, well-developed, well-nourished Head exam: PRESENT: atraumatic, normocephalic Eye exam: PRESENT: conjunctiva pink, EOMI, PERRLA Ear exam: PRESENT: normal external ear exam Mouth exam: PRESENT: moist, tongue midline Neck exam: PRESENT: full ROM Respiratory exam: PRESENT: clear to auscultation isak Cardiovascular exam: PRESENT: RRR, +S1, +S2 Pulses: PRESENT: normal dorsalis pedis pul, +2 pedal pulses bilateral Vascular exam: PRESENT: normal capillary refill GI/Abdominal exam: PRESENT: normal bowel sounds, soft Rectal exam: PRESENT: deferred Neurological exam: PRESENT: alert, awake, oriented to person, oriented to place, oriented to time, oriented to situation, CN II-XII grossly intact Psychiatric exam: PRESENT: appropriate affect, normal mood Skin exam: PRESENT: dry, intact, warm Results Laboratory Results: 07/18/18 06:46 07/19/18 05:13 07/19/18 05:13 Sodium 136.1 L Potassium 3.3 L Chloride 104 Carbon Dioxide 22 Anion Gap 10 BUN 3 L Creatinine 0.55 Est GFR ( Amer) > 60 Est GFR (Non-Af Amer) > 60 Glucose 86 Calcium 8.0 L 07/16/18 14:50 Clean Catch Midstream Urine Culture - Final Klebsiella Pneumoniae Enterococcus Faecalis(Group D) Impressions: Esophagus X-Ray 07/19/18 00:00 IMPRESSION: MILD TO MODERATE TERTIARY CONTRACTIONS. OTHERWISE UNREMARKABLE STUDY. . Assessment & Plan - Diagnosis (1) Dehydration Is this a current diagnosis for this admission?: Yes (2) Vomiting Qualifiers: Vomiting type: unspecified Vomiting Intractability: intractable Nausea presence: with nausea Qualified Code(s): R11.2 - Nausea with vomiting, unspecified Is this a current diagnosis for this admission?: Yes (3) Hypokalemia Is this a current diagnosis for this admission?: Yes (4) T2DM (type 2 diabetes mellitus) Qualifiers: Diabetes mellitus buttermaker helper insulin use: without fdc use Diabetes mellitus complication status: without complication Qualified Code(s): E11.9 - Type 2 diabetes mellitus without complications Is this a current diagnosis for this admission?: Yes (5) Bipolar 1 disorder, depressed Is this a current diagnosis for this admission?: Yes (6) Epigastric pain Is this a current diagnosis for this admission?: Yes Plan: She has epigastric discomfort associated with food intake usually provoke vomiting, consultation will be requested from GI for upper endoscopy
[2018-07-19] MEDS: MIRTAZAPINE 15 MG TABLET PO SCH (21:00)
[2018-07-20] MEDS: ACETAMINOPHEN 325 MG TABLET PO PRN ×2 (01:05→23:14)
[2018-07-20] MEDS: ONDANSETRON HCL INJ/PF 4 MG/2 ML SDV IV PRN ×4 (06:14→23:14)
[2018-07-20] MEDS: OXYCODONE HCL IR 5 MG TABLET PO PRN ×2 (06:14→15:51)
[2018-07-20 06:28] LABS: ANION GAP 11 (5-19); BLOOD UREA NITROGEN 2 mg/dL (7-20); CALCIUM 7.5 mg/dL (8.4-10.2); CARBON DIOXIDE 21 mmol/L (22-30); CHLORIDE 105 mmol/L (98-107); GLUCOSE 126 mg/dL (75-110); SODIUM 136.7 mmol/L (137-145)
[2018-07-20 06:33] LABS: POTASSIUM 2.7 mmol/L (3.6-5.0)
[2018-07-20] MEDS: POTASSIUM CHLORIDE 20 MEQ/15 ML UDCUP PO SCH ×4 (07:58→17:28)
[2018-07-20] MEDS: METFORMIN HCL 500 MG TABLET PO SCH ×2 (07:58→17:30)
[2018-07-20] MEDS: NORMAL SALINE 1000 ML 1,000 ML IV PRN ×2 (07:59→17:36)
[2018-07-20] MEDS: CIPROFLOXACIN HCL 500 MG TABLET PO SCH ×2 (11:18→21:10)
[2018-07-20] MEDS: PRAMIPEXOLE DI-HCL 0.5 MG TABLET PO SCH ×2 (11:18→17:30)
[2018-07-20] MEDS: FAMOTIDINE 20 MG TABLET PO SCH ×2 (11:19→21:10)
[2018-07-20] MEDS: PANTOPRAZOLE SODIUM 40 MG TABLET.DR PO SCH (11:19)
--- NOTE | 2018-07-20 12:28 | PDOC CONSULTATION ---
Consultation Consult Date: 07/19/18 Attending physician:: ZANE GONZALEZ Consult reason:: epigastric pain, nausea and vomiting History of Present Illness Admission Date/PCP: 07/18/18 13:58 ROSLYN TOLEDO MD History of Present Illness: ALANA ROMERO is a 77 year old female asked to see this patient presented to her primary office has been having epigastric pain along with nausea and vomiting has been unable to tolerate oral intake was admitted had esophagram done that was negative I been asked to see for possible EGD there does not appear to be any obstruction noted will schedule her to have an EGD done positive history of GERD denies any weight loss there is no melena Past Medical History Cardiac Medical History: Reports: Hyperlipidema, Hypertension Pulmonary Medical History: Reports: Chronic Obstructive Pulmonary Disease (COPD) Endocrine Medical History: Reports: Diabetes Mellitus Type 2 - "borderline" Malignancy Medical History: Reports: Cervical Cancer - uterine cancer GI Medical History: Reports: Gastroesophageal Reflux Disease Musculoskeltal Medical History: Reports: Arthritis - back, shoulders, and neck Psychiatric Medical History: Reports: Bipolar Disorder, Depression Past Surgical History Past Surgical History: Reports: Section, Hysterectomy, Orthopedic Surgery, Tubal Ligation Social History Smoking Status: Never Smoker Frequency of Alcohol Use: None Hx Recreational Drug Use: No Drugs: None Hx Prescription Drug Abuse: No Family History Family History: Reviewed & Not Pertinent Parental Family History Reviewed: Yes Children Family History Reviewed: Unknown Sibling(s) Family History Reviewed.: Unknown Medication/Allergy Home Medications: Dapagliflozin Propanediol [Farxiga] 10 mg PO DAILY 07/16/18 Dexlansoprazole [Dexilant 60 mg Capsule] 60 mg PO DAILY 07/16/18 Mirtazapine 45 mg PO QHS 07/16/18 Pramipexole Di-HCl [Mirapex 0.5 Mg Tablet] 0.5 mg PO BID 07/16/18 Ranitidine HCl [Zantac 150 mg Tablet] 150 mg PO BID 07/16/18 Sitagliptin Phos/Metformin HCl [Janumet Xr 100-1,000 mg Tablet] 1 each PO QPM 07/16/18 Valsartan/Hydrochlorothiazide [Valsartan-Hctz 160-25 mg Tab] 1 each PO DAILY 07/16/18 Allergies/Adverse Reactions: codeine Allergy (Verified 06/28/18 09:51) morphine [Morphine] Allergy (Verified 06/28/18 09:51) Review of Systems Constitutional: ABSENT: fever(s), headache(s), night sweats Eyes: ABSENT: visual disturbances Ears: ABSENT: hearing changes Nose, Mouth, and Throat: ABSENT: mouth pain, sore throat Cardiovascular: ABSENT: edema, orthropnea Respiratory: ABSENT: dyspnea, hemoptysis Gastrointestinal: PRESENT: heartburn, nausea, vomiting. ABSENT: diarrhea, hematemesis Genitourinary: ABSENT: dysuria, hematuria Musculoskeletal: ABSENT: deformity, joint swelling Integumentary: ABSENT: lesions, pruritus Neurological: ABSENT: syncope, tingling, tremor(s), vertigo Endocrine: ABSENT: polydipsia, polyphagia, polyuria Hematologic/Lymphatic: ABSENT: easy bruising Physical Exam Vital Signs: Temp Pulse Resp BP Pulse Ox 99.5 F 88 19 149/101 H 100 07/20/18 08:27 07/20/18 08:27 07/20/18 08:27 07/20/18 08:27 07/20/18 08:27 Intake & Output 07/19/18 07/20/18 07/21/18 06:59 06:59 06:59 Intake Total 3770 3254 Output Total 500 Balance 3770 2754 Weight 75.3 kg 75.3 kg General appearance: PRESENT: no acute distress, well-developed, well-nourished Head exam: PRESENT: atraumatic, normocephalic Eye exam: PRESENT: EOMI, PERRLA. ABSENT: nystagmus, periorbital swelling, scleral icterus Mouth exam: PRESENT: moist, neck supple Throat exam: ABSENT: tonsillar exudate, tonsillogmegaly Neck exam: ABSENT: meningismus, tenderness, thyromegaly Respiratory exam: PRESENT: symmetrical, unlabored. ABSENT: tachypnea, wheezes Cardiovascular exam: PRESENT: RRR, +S1, +S2 GI/Abdominal exam: PRESENT: soft. ABSENT: rebound, rigid, tenderness Extremities exam: ABSENT: joint swelling, pedal edema Musculoskeletal exam: PRESENT: full ROM Neurological exam: PRESENT: oriented to time, oriented to situation, CN II-XII grossly intact Focused psych exam: ABSENT: restlessness Skin exam: PRESENT: normal color. ABSENT: mottled, pallor, urticaria, vesicles Results Laboratory Results: 07/18/18 06:46 07/20/18 04:55 07/20/18 04:55 Sodium 136.7 L Potassium 2.7 L* Chloride 105 Carbon Dioxide 21 L Anion Gap 11 BUN 2 L Creatinine 0.49 L Est GFR ( Amer) > 60 Est GFR (Non-Af Amer) > 60 Glucose 126 H Calcium 7.5 L 07/16/18 14:50 Clean Catch Midstream Urine Culture - Final Klebsiella Pneumoniae Enterococcus Faecalis(Group D) Impressions: Esophagus X-Ray 07/19/18 00:00 IMPRESSION: MILD TO MODERATE TERTIARY CONTRACTIONS. OTHERWISE UNREMARKABLE STUDY. . Assessment & Plan - Diagnosis (1) Dysphagia Qualifiers: Dysphagia type: unspecified Qualified Code(s): R13.10 - Dysphagia, unspecified Is this a current diagnosis for this admission?: Yes Plan: negative barium swallow will need EGD Risks, benefits and alternatives are explained to the patient in detail further recommendations to follow she will be made NPO - Time Time Spent: 50 to 70 Minutes
[2018-07-20] MEDS ORDERED: NALOXONE HCL INJ/PF 0.4 MG/1 ML SDV ONE (12:58)
[2018-07-20] MEDS ORDERED: FENTANYL CITRATE INJ/PF 100 MCG/2 ML AMPUL ONE (12:58)
[2018-07-20] MEDS ORDERED: ONDANSETRON HCL INJ/PF 4 MG/2 ML SDV ONE (12:58)
[2018-07-20] MEDS ORDERED: DIPHENHYDRAMINE HCL 50 MG/ML VIAL ONE (12:58)
[2018-07-20] MEDS ORDERED: FLUMAZENIL INJ 0.5 MG/5 ML VIAL ONE (12:58)
[2018-07-20] MEDS ORDERED: EPINEPHRINE INJ 1 MG/10 ML DISP.SYRIN ONE (12:59)
[2018-07-20] MEDS ORDERED: GLUCAGON,HUMAN RECOMB 1 MG INJ ONE (12:59)
[2018-07-20] MEDS: MIDAZOLAM 2 MG/2 ML INJ ONE ×2 (14:34→14:40)
--- NOTE | 2018-07-20 14:55 | Operative Report ---
Operative Report DATE OF SURGERY: 07/20/18 Operative Report: The risks benefits and alternatives of the procedure explained to the patient in detail and informed consent is obtained.A GIF Olympus video scope was inserted into the patient's mouth and hypopharynx, the esophagus is identified intubated and insufflated, the scope was then advanced through the esophagus stomach and duodenum, retroflexion maneuver is done, the esophagus stomach and first and second portions of the duodenum examined. PREOPERATIVE DIAGNOSIS: Nausea vomiting epigastric pain POSTOPERATIVE DIAGNOSIS: Gastritis status post biopsy rule out Helicobacter pylori. No esophageal obstruction noted OPERATION: EGD with biopsy SURGEON: ZANE GONZALEZ ANESTHESIA: Moderate Sedation - 4 mg of Versed, 25 mcg of fentanyl. Conscious sedation monitoring time 30 minutes. TISSUE REMOVED OR ALTERED: As noted above. COMPLICATIONS: None. ESTIMATED BLOOD LOSS: None. INTRAOPERATIVE FINDINGS: As noted above. PROCEDURE: Patient tolerated the procedure well. No immediate postprocedure complications are noted Patient sent back to her room in good condition. Resume regular diet as tolerated Resume previous activity level Wait on biopsies Likely can be discharged if no other medical issues Follow-up as outpatient Wait on the biopsies
[2018-07-20] MEDS: HYDROCHLOROTHIAZIDE 12.5 MG TABLET PO SCH (17:28)
[2018-07-20] MEDS: SITAGLIPTIN PHOSPHATE 50 MG TABLET PO SCH (17:30)
[2018-07-20] MEDS: VALSARTAN 80 MG TABLET PO SCH (17:31)
[2018-07-20] MEDS: MIRTAZAPINE 15 MG TABLET PO SCH (21:11)
--- NOTE | 2018-07-20 23:16 | PDOC PROGRESS REPORT ---
Subjective Progress Note for:: 07/20/18 Subjective:: She had EGD done it was normal Reason For Visit: DEHYDRATION,HYPOKALEMIA,UTI,DYSPHAGIA,DM2 Physical Exam Vital Signs: Temp Pulse Resp BP Pulse Ox 98.7 F 92 17 125/80 98 07/20/18 19:08 07/20/18 19:08 07/20/18 19:08 07/20/18 19:08 07/20/18 19:08 Intake & Output 07/19/18 07/20/18 07/21/18 06:59 06:59 06:59 Intake Total 3770 3254 1650 Output Total 500 Balance 3770 2754 1650 Weight 75.3 kg 75.3 kg 75.3 kg General appearance: PRESENT: no acute distress, well-developed, well-nourished Head exam: PRESENT: atraumatic, normocephalic Eye exam: PRESENT: conjunctiva pink, EOMI, PERRLA. ABSENT: scleral icterus Ear exam: PRESENT: normal external ear exam Mouth exam: PRESENT: moist, tongue midline Neck exam: PRESENT: full ROM. ABSENT: carotid bruit, JVD, lymphadenopathy, thyromegaly Cardiovascular exam: PRESENT: RRR. ABSENT: diastolic murmur, rubs, systolic murmur Pulses: PRESENT: normal dorsalis pedis pul, +2 pedal pulses bilateral Vascular exam: PRESENT: normal capillary refill GI/Abdominal exam: PRESENT: normal bowel sounds, soft. ABSENT: distended, guarding, mass, organolmegaly, rebound, tenderness Rectal exam: PRESENT: deferred Neurological exam: PRESENT: alert, awake, oriented to person, oriented to place, oriented to time, oriented to situation, CN II-XII grossly intact. ABSENT: motor sensory deficit Psychiatric exam: PRESENT: appropriate affect, normal mood. ABSENT: homicidal ideation, suicidal ideation Skin exam: PRESENT: dry, intact, warm. ABSENT: cyanosis, rash Results Laboratory Results: 07/18/18 06:46 07/20/18 04:55 07/20/18 04:55 Sodium 136.7 L Potassium 2.7 L* Chloride 105 Carbon Dioxide 21 L Anion Gap 11 BUN 2 L Creatinine 0.49 L Est GFR ( Amer) > 60 Est GFR (Non-Af Amer) > 60 Glucose 126 H Calcium 7.5 L Impressions: Esophagus X-Ray 07/19/18 00:00 IMPRESSION: MILD TO MODERATE TERTIARY CONTRACTIONS. OTHERWISE UNREMARKABLE STUDY. . 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
[2018-07-21] MEDS: NORMAL SALINE 1000 ML 1,000 ML IV PRN ×3 (03:26→17:27)
[2018-07-21] MEDS: OXYCODONE HCL IR 5 MG TABLET PO PRN ×3 (03:26→21:03)
[2018-07-21 06:34] LABS: ANION GAP 12 (5-19); CALCIUM 8.1 mg/dL (8.4-10.2); CARBON DIOXIDE 16 mmol/L (22-30); CHLORIDE 109 mmol/L (98-107); GLUCOSE 116 mg/dL (75-110); POTASSIUM 4.3 mmol/L (3.6-5.0); SODIUM 137.2 mmol/L (137-145)
[2018-07-21 06:36] LABS: BLOOD UREA NITROGEN < 2 mg/dL (7-20)
[2018-07-21] MEDS: METFORMIN HCL 500 MG TABLET PO SCH ×2 (07:23→17:27)
--- NOTE | 2018-07-21 08:09 | PDOC PROGRESS REPORT ---
Subjective Progress Note for:: 07/21/18 Subjective:: no significant overnight events mild gastritis is noted, biopsies are pending patient still has some epigastric discomfort there is still some nausea symptomatic treatment at this point there may be a component of gastroparesis may need gastric emptying study Reason For Visit: DEHYDRATION,HYPOKALEMIA,UTI,DYSPHAGIA,DM2 Physical Exam Vital Signs: Temp Pulse Resp BP Pulse Ox 98.4 F 91 17 116/49 L 98 07/21/18 03:55 07/21/18 03:55 07/21/18 03:55 07/21/18 03:55 07/21/18 03:55 Intake & Output 07/20/18 07/21/18 07/22/18 06:59 06:59 06:59 Intake Total 3254 2950 Output Total 500 Balance 2754 2950 Weight 75.3 kg 75.2 kg General appearance: PRESENT: mild distress, well-developed, well-nourished Head exam: PRESENT: atraumatic, normocephalic Eye exam: PRESENT: EOMI, PERRLA. ABSENT: nystagmus, scleral icterus Mouth exam: PRESENT: moist, neck supple Throat exam: ABSENT: tonsillar exudate, tonsillogmegaly Neck exam: ABSENT: meningismus, tenderness, thyromegaly Respiratory exam: PRESENT: symmetrical, unlabored. ABSENT: tachypnea, wheezes Cardiovascular exam: PRESENT: RRR, +S1, +S2 GI/Abdominal exam: PRESENT: soft. ABSENT: rebound, rigid, tenderness Extremities exam: ABSENT: joint swelling Musculoskeletal exam: PRESENT: full ROM Neurological exam: PRESENT: oriented to time, oriented to situation, CN II-XII grossly intact Focused psych exam: ABSENT: restlessness Skin exam: PRESENT: normal color. ABSENT: mottled, pallor, urticaria, vesicles Results Laboratory Results: 07/18/18 06:46 07/21/18 05:11 07/21/18 05:11 Sodium 137.2 Potassium 4.3 Chloride 109 H Carbon Dioxide 16 L Anion Gap 12 BUN < 2 L Creatinine 0.63 Est GFR ( Amer) > 60 Est GFR (Non-Af Amer) > 60 Glucose 116 H Calcium 8.1 L Impressions: Esophagus X-Ray 07/19/18 00:00 IMPRESSION: MILD TO MODERATE TERTIARY CONTRACTIONS. OTHERWISE UNREMARKABLE STUDY. . Assessment & Plan - Diagnosis (1) Dysphagia Qualifiers: Dysphagia type: unspecified Qualified Code(s): R13.10 - Dysphagia, unspecified Is this a current diagnosis for this admission?: Yes Plan: normal esophagram normal EGD without any obstruction ? gastroparesis mild gastritis PPI and antiemetic ? due to patient anxiety - Time Time Spent with patient: 15-24 minutes
[2018-07-21] MEDS: CIPROFLOXACIN HCL 500 MG TABLET PO SCH ×2 (10:11→21:03)
[2018-07-21] MEDS: POTASSIUM CHLORIDE 20 MEQ/15 ML UDCUP PO SCH (10:11)
[2018-07-21] MEDS: FAMOTIDINE 20 MG TABLET PO SCH ×2 (10:11→21:04)
[2018-07-21] MEDS: PRAMIPEXOLE DI-HCL 0.5 MG TABLET PO SCH ×2 (10:12→17:28)
[2018-07-21] MEDS: PANTOPRAZOLE SODIUM 40 MG TABLET.DR PO SCH (10:12)
[2018-07-21] MEDS: ONDANSETRON HCL INJ/PF 4 MG/2 ML SDV IV PRN ×2 (11:52→20:34)
[2018-07-21] MEDS: ACETAMINOPHEN 325 MG TABLET PO PRN (14:03)
[2018-07-21] MEDS: HYDROCHLOROTHIAZIDE 12.5 MG TABLET PO SCH (17:27)
[2018-07-21] MEDS: VALSARTAN 80 MG TABLET PO SCH (17:28)
[2018-07-21] MEDS: SITAGLIPTIN PHOSPHATE 50 MG TABLET PO SCH (17:28)
--- NOTE | 2018-07-21 20:10 | PDOC DISCHARGE SUMMARY ---
General - Admit/Disc Date/PCP Admission Date/Primary Care Provider: 07/18/18 13:58 ROSLYN TOLEDO MD Discharge Date: 07/22/18 - Discharge Diagnosis (1) Dehydration Is this a current diagnosis for this admission?: Yes (2) Vomiting Is this a current diagnosis for this admission?: Yes (3) Hypokalemia Is this a current diagnosis for this admission?: Yes (4) T2DM (type 2 diabetes mellitus) Is this a current diagnosis for this admission?: Yes (5) Bipolar 1 disorder, depressed Is this a current diagnosis for this admission?: Yes (6) Epigastric pain Is this a current diagnosis for this admission?: Yes - Additional Information Resuscitation Status: Full Code Home Medications: Dapagliflozin Propanediol [Farxiga] 10 mg PO DAILY 07/16/18 Dexlansoprazole [Dexilant 60 mg Capsule] 60 mg PO DAILY 07/16/18 Mirtazapine 45 mg PO QHS 07/16/18 Pramipexole Di-HCl [Mirapex 0.5 mg Tablet] 0.5 mg PO BID 07/16/18 Ranitidine HCl [Zantac 150 mg Tablet] 150 mg PO BID 07/16/18 Sitagliptin Phos/Metformin HCl [Janumet Xr 100-1,000 mg Tablet] 1 each PO QPM 07/16/18 Valsartan/Hydrochlorothiazide [Valsartan-Hctz 160-25 mg Tab] 1 each PO DAILY 07/16/18 History of Present Illness History of Present Illness: ALANA ROMERO is a 77 year old female, She was recently diagnosed with type 2 diabetes mellitus, she came to the office this morning without any appointment for evaluation of vomiting, malaise, she stated that she is not able to keep any food down she said "please do not let me ,please help me" she was admitted from the office to the hospital for management. The comprehensive metabolic panel showed hypokalemia she was clinically dehydrated with dry oral mucosa and loss of skin turgor Hospital Course Hospital Course: Patient was admitted for the management of persistent vomiting, she was started on IV fluid, she also complained of epigastric discomfort especially after eating consultation was requested from GI she underwent upper endoscopy. No obstructive lesion was found on endoscopy there was no ulcer Physical Exam Vital Signs: Temp Pulse Resp BP Pulse Ox 99.0 F 95 16 137/65 H 99 07/21/18 15:54 07/21/18 15:54 07/21/18 15:54 07/21/18 15:54 07/21/18 15:54 Intake & Output 07/20/18 07/21/18 07/22/18 06:59 06:59 06:59 Intake Total 3254 2950 2120 Output Total 500 Balance 2754 2950 2120 Weight 75.3 kg 75.2 kg General appearance: PRESENT: no acute distress Head exam: PRESENT: normocephalic Eye exam: PRESENT: PERRLA Mouth exam: PRESENT: moist Neck exam: PRESENT: full ROM Respiratory exam: PRESENT: clear to auscultation isak Cardiovascular exam: PRESENT: RRR, +S1, +S2 Vascular exam: PRESENT: normal capillary refill GI/Abdominal exam: PRESENT: normal bowel sounds, soft Rectal exam: PRESENT: deferred Neurological exam: PRESENT: alert, awake, oriented to person, oriented to place, oriented to time, oriented to situation, CN II-XII grossly intact Psychiatric exam: PRESENT: appropriate affect, normal mood Skin exam: PRESENT: dry, intact, warm Results Laboratory Results: 07/18/18 06:46 07/21/18 05:11 07/21/18 05:11 Sodium 137.2 Potassium 4.3 Chloride 109 H Carbon Dioxide 16 L Anion Gap 12 BUN < 2 L Creatinine 0.63 Est GFR ( Amer) > 60 Est GFR (Non-Af Amer) > 60 Glucose 116 H Calcium 8.1 L 07/16/18 13:12 Blood Blood Culture - Final NO GROWTH IN 5 DAYS 07/16/18 13:00 Blood Blood Culture - Final NO GROWTH IN 5 DAYS Impressions: Esophagus X-Ray 07/19/18 00:00 IMPRESSION: MILD TO MODERATE TERTIARY CONTRACTIONS. OTHERWISE UNREMARKABLE STUDY. . Qualifiers - * PATIENT BEING DISCHARGED WITH ANY OF THE FOLLOWING DIAGNOSIS: No
[2018-07-21] MEDS: MIRTAZAPINE 15 MG TABLET PO SCH (21:03)
[2018-07-22] MEDS: ONDANSETRON HCL INJ/PF 4 MG/2 ML SDV IV PRN (01:38)
[2018-07-22] MEDS: OXYCODONE HCL IR 5 MG TABLET PO PRN (05:20)
[2018-07-22] MEDS: NORMAL SALINE 1000 ML 1,000 ML IV PRN (05:27)
[2018-07-22] MEDS: METFORMIN HCL 500 MG TABLET PO SCH (07:38)
[2018-07-22 08:36] VITALS: BP 114/50
== END 2018-07-22 09:52 | disposition home or self-care (01) | DRG 641 ==
LOC: 4S 11:08 → INTOOBSV 11:08 → OBSVTOIN 07-18 13:58 → 4W 07-19 04:47
PROVIDERS: ADMIT Internal Medicine; ATTEND Internal Medicine
PROC: 0DB68ZX Excision of Stomach, Via Natural or Artificial Opening Endoscopic, Diagnostic (ICD-10-PCS; principal; 2018-07-20 14:00)
DX: E86.0 Dehydration (principal); N39.0 Urinary tract infection, site not specified; J44.9 Chronic obstructive pulmonary disease, unspecified; R13.10 Dysphagia, unspecified; E11.9 Type 2 diabetes mellitus without complications; B96.1 Klebsiella pneumoniae [K. pneumoniae] as the cause of diseases classified elsewhere; E87.6 Hypokalemia; E78.5 Hyperlipidemia, unspecified; I10 Essential (primary) hypertension; K21.9 Gastro-esophageal reflux disease without esophagitis; M47.9 Spondylosis, unspecified; M19.012 Primary osteoarthritis, left shoulder; M19.011 Primary osteoarthritis, right shoulder; F31.9 Bipolar disorder, unspecified; K29.70 Gastritis, unspecified, without bleeding; M54.30 Sciatica, unspecified side; Z85.41 Personal history of malignant neoplasm of cervix uteri; Z85.42 Personal history of malignant neoplasm of other parts of uterus; Z88.6 Allergy status to analgesic agent; Z79.84 Long term (current) use of oral hypoglycemic drugs
CPT/HCPCS: 36415; 43239; 74220; 80048; 80053; 80076; 82962; 83036; 85025; 87040; 87086; 87088; 87186; 88305; G0378; G0379; J0171; J1200; J1610; J2250; J2310; J2405; J3010; J3490; J7030

== ENCOUNTER → 2018-09-07 | Outpatient (CLI) | payer MEDICARE, MEDICAID ==
--- NOTE | 2018-09-07 10:31 | RADIOLOGY REPORT (SQ) ---
EXAM DESCRIPTION: BARIUM SWALLOW ESOPHAGUS COMPLETED DATE/TIME: 09/07/2018 10:11 am REASON FOR STUDY: DYSPHAGIA R13.10 DYSPHAGIA, UNSPECIFIED COMPARISON: Barium swallow 07/19/2018, 09/21/2017, 11/06/2015, 04/03/2015 CT abdomen pelvis 04/09/2018 CT cervical spine 04/14/2018 Two-view chest 04/05/2018 TECHNIQUE: Under fluoroscopic guidance, patient ingested effervescent granules followed by thick and thin barium. Fluoroscopic spot images and routine radiographic images acquired and stored on PACS. 12 MM BARIUM TABLET GIVEN: Yes 12 mm barium tablet paused at the GE junction in the distal esophagus for about 5 minutes before drop ping through into the patient's stomach. This reproduced the patient's symptoms. LIMITATIONS: None. FLUOROSCOPY TIME: FLUORO TIME: 2.2 minutes 7 series of digital fluoroscopic images saved to PACS. FINDINGS: NEUROMUSCULAR COORDINATION OF SWALLOW: Normal. No aspiration. There is a prominent cricop haryngeal is impression on the upper esophagus with the less than 1 cm Zenker's diverticulum present. ESOPHAGEAL MOTILITY: Normal peristalsis. Prominent tertiary contractions. ESOPHAGEAL MUCOSA: Normal mucosa without masses or ulceration. GASTRO-ESOPHAGEAL JUNCTION: There is a tiny sliding hiatal hernia 1. Gastroesophageal reflux through out the study. Mild distal esophageal peptic stricture, the 12 mm barium tablet paused at the GE tesfaye ction in the distal esophagus for about 5 minutes before dropping through into the patient's stomach. This reproduced the patient's symptoms NON-GI TRACT STRUCTURES: No significant finding. 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 IMPRESSION: Short segment peptic stricture distal esophagus just above the GE junction which causes transient delay in 12 mm barium tablet passage. This reproduced the patient's symptoms. COMMENT: Quality ID 145: Final reports for procedures using fluoroscopy that document radiation exp osure indices, or exposure time and number of fluorographic images (if radiation exposure indices are not available) TECHNICAL DOCUMENTATION: JOB ID: [id number] [employer]- All Rights Reserved Reading location - IP/workstation name: [email or web address]
== END ==
LOC: RAD 09:17
PROVIDERS: ATTEND Internal Medicine
DX: R13.10 Dysphagia, unspecified (principal)
CPT/HCPCS: 74220

== ENCOUNTER 2018-10-04 14:33 | Emergency (ER) | payer MEDICARE, MEDICAID ==
--- NOTE | 2018-10-04 15:24 | RADIOLOGY REPORT (SQ) ---
EXAM DESCRIPTION: CT HEAD WITHOUT COMPLETED DATE/TIME: 10/04/2018 3:14 pm REASON FOR STUDY: fall COMPARISON: 04/14/2018 TECHNIQUE: Axial images acquired through the brain without intravenous contrast. Images reviewed wi th bone, brain and subdural windows. Additional sagittal and coronal reconstructions were generated. Images stored on PACS. All CT scanners at this facility use dose modulation, iterative reconstruction, and/or weight based d osing when appropriate to reduce radiation dose to as low as reasonably achievable (ALARA). [facility]: Dose Right [facility]: CareDose [facility]: Dose Right [facility]: Teradose 4D [facility]: Smart [employer] RADIATION DOSE: CT Rad equipment meets quality standard of care and radiation dose reduction techniq ues were employed. CTDIvol: 53.2 mGy. DLP: 1017 mGy-cm. mGy. LIMITATIONS: None. FINDINGS: VENTRICLES: Normal size and contour. CEREBRUM: No masses. No hemorrhage. No midline shift. No evidence for acute infarction. Few scatte red areas of low density in the white matter most likely chronic small vessel ischemic changes. CEREBELLUM: No masses. No hemorrhage. No alteration of density. No evidence for acute infarction. EXTRAAXIAL SPACES: No fluid collections. No masses. ORBITS AND GLOBE: No intra- or extraconal masses. Normal contour of globe without masses. CALVARIUM: No fracture. PARANASAL SINUSES: No fluid or mucosal thickening. SOFT TISSUES: No mass or hematoma. OTHER: No other significant finding. IMPRESSION: MILD CHRONIC MICROVASCULAR ISCHEMIA. NO ACUTE IMAGING FINDINGS IN THE BRAIN. EVIDENCE OF ACUTE STROKE: NO. COMMENT: Quality ID # [id number]: Final reports with documentation of one or more dose reduction techniques (e.g., Automated exposure control, adjustment of the mA and/or kV according to patient size, use of iterative reconstruction technique) TECHNICAL DOCUMENTATION: JOB ID: [id number] [employer]- All Rights Reserved Reading location - IP/workstation name: [email or web address]
--- NOTE | 2018-10-04 15:25 | RADIOLOGY REPORT (SQ) ---
EXAM DESCRIPTION: CT CERVICAL SPINE WITHOUT COMPLETED DATE/TIME: 10/04/2018 3:14 pm REASON FOR STUDY: fall COMPARISON: 04/14/2018 TECHNIQUE: Axial images acquired through the cervical spine without intravenous contrast. Images re viewed with lung, soft tissue and bone windows. Reconstructed coronal and sagittal MPR images review ed. Images stored on PACS. All CT scanners at this facility use dose modulation, iterative reconstruction, and/or weight based d osing when appropriate to reduce radiation dose to as low as reasonably achievable (ALARA). [facility]: Dose Right [facility]: CareDose [facility]: Dose Right [facility]: Teradose 4D [facility]: [employer] RADIATION DOSE: CT Rad equipment meets quality standard of care and radiation dose reduction techniq ues were employed. CTDIvol: 19.5 mGy. DLP: 367 mGy-cm. mGy. LIMITATIONS: None. FINDINGS: ALIGNMENT: Stable. MINERALIZATION: Osteopenia. VERTEBRAL BODIES: No fractures or dislocation. DISCS: Multilevel disc space narrowing with osteophytes. FACETS, LATERAL MASSES, POSTERIOR ELEMENTS: Facet arthropathy. No fractures. No dislocation. No ac [place] findings. HARDWARE: None in the spine. VISUALIZED RIBS: No fractures. LUNG APICES AND SOFT TISSUES: No significant or acute findings. OTHER: No other significant finding. IMPRESSION: CHRONIC DEGENERATIVE CHANGES. NO ACUTE FINDINGS. TECHNICAL DOCUMENTATION: JOB ID: [id number] Quality ID # [id number]: Final reports with documentation of one or more dose reduction techniques (e.g., Au tomated exposure control, adjustment of the mA and/or kV according to patient size, use of iterative reconstruction technique) 2010 [employer]- All Rights Reserved Reading location - IP/workstation name: [email or web address]
[2018-10-04] MEDS ORDERED: OXYCODONE HCL IR 5 MG TABLET PO ONE (15:57)
--- NOTE | 2018-10-04 16:35 | ER Document Report ---
ED General - General Chief Complaint: Head Injury Stated Complaint: FALL/HEAD INJURY Time Seen by Provider: 10/04/18 15:25 Primary Care Provider: ROSLYN TOLEDO MD [Primary Care Provider] - Follow up in 1 week Notes: Patient is a 78-year-old female that presents to the emergency department for chief complaint of headache and back pain after fall. Patient states that she stepped out of the shower, and slipped on the wet floor and fell backwards and hit her head. She does not think she lost consciousness, she was able to crawl to the bed, she hit her life alert button, and EMS arrived and brought her to [facility] emergency department. She states she has some exacerbation of her low back pain, it does not appear to be changed, just exacerbation of her chronic pain, she denies any numbness, tingling or weakness in her lower or upper extremities. She has a mild headache she describes as a 2 out of 10, because she did hit her head. She denies being on any blood thinners. She currently rates her pain as a 5 out of 10 describes as a constant aching sensation in her back and head. Past Medical History: Chronic low back pain, diabetes mellitus, obesity Past Surgical History: Hysterectomy Social History: Denies current tobacco, alcohol or drug use, lives alone at home. Family History: Reviewed and noncontributory for presenting illness Allergies: Reviewed, see documented allergy list. REVIEW OF SYSTEMS: Other than noted above, the 12 point review of systems was reviewed with the patient and were negative, all pertinent findings are included in the HPI. PHYSICAL EXAMINATION: Vital signs reviewed, nursing noted reviewed. GENERAL: Elderly, obese female, pleasant, no acute distress HEAD: Atraumatic, normocephalic. No scalp hematomas EYES: Eyes appear normal, extraocular movements intact, sclera anicteric, conjunctiva are normal. ENT: nares patent, oropharynx clear without exudates. Moist mucous membranes. NECK: supple without lymphadenopathy, cervical collar in place, but no midline tenderness when examined. LUNGS: Breath sounds clear to auscultation bilaterally and equal. No wheezes rales or rhonchi. HEART: Regular rate and rhythm without murmurs ABDOMEN: Soft, nontender, normoactive bowel sounds. No rebound, guarding, or rigidity. No masses appreciated. EXTREMITIES: Mild tenderness to palpation over the right elbow, but good range of motion, the rest the patient's extremity exam is grossly unremarkable, good range of motion, no pitting or edema. Patient had normal gait with assistance, she usually uses a walker. NEUROLOGICAL: No focal neurological deficits. Moves all extremities spontaneously Motor and sensory grossly intact on exam. PSYCH: Normal mood, normal affect. SKIN: Warm, Dry, normal turgor, 1.5cm laceration noted to the right elbow, no active bleeding. TRAVEL OUTSIDE OF THE [place] IN LAST 30 DAYS: No - Related Data Allergies/Adverse Reactions: codeine Allergy (Verified 10/04/18 14:42) morphine [Morphine] Allergy (Verified 10/04/18 14:42) Past Medical History - Social History Smoking Status: Never Smoker Chew tobacco use (# tins/day): No Frequency of alcohol use: None Drug Abuse: None Family History: Reviewed & Not Pertinent Patient has suicidal ideation: No Patient has homicidal ideation: No - Past Medical History Cardiac Medical History: Reports: Hx Hypercholesterolemia, Hx Hypertension Pulmonary Medical History: Reports: Hx COPD Neurological Medical History: Denies: Hx Seizures Endocrine Medical History: Reports: Hx Diabetes Mellitus Type 2 - "borderline" Renal/ Medical History: Reports: Hx Ovarian Cysts. Denies: Hx Peritoneal Dialysis Malignancy Medical History: Reports: Hx Cervical Cancer - uterine cancer GI Medical History: Reports: Hx Gastroesophageal Reflux Disease Musculoskeletal Medical History: Reports Hx Arthritis - back, shoulders, and neck, Reports Hx Musculoskeletal Deformity - Chronic back pain arthritis and back shoulder or neck Psychiatric Medical History: Reports: Hx Bipolar Disorder, Hx Depression Past Surgical History: Reports: Hx Section, Hx Gynecologic Surgery, Hx Hysterectomy, Hx Orthopedic Surgery, Hx Tubal Ligation - Immunizations Immunizations up to date: Yes Hx Diphtheria, Pertussis, Tetanus Vaccination: Yes Hx Pneumococcal Vaccination: 02/01/13 Physical Exam - Vital signs Vitals: Resp Pulse Ox 26 H 96 10/04/18 14:43 10/04/18 14:43 Course - Re-evaluation Re-evalutation: Patient seen and examined vital signs reviewed. Laboratory data and/or imaging were ordered as appropriate for the patient's presenting symptoms and complaint, with consideration of any critical or life threatening conditions that may be associated with their obtained history and exam as noted above. Patient was treated with oxycodone 5 mg IR, this is the patient's home med Results were reviewed when available and demonstrated negative CT imaging of the head and cervical spine, patient cervical collar was removed, she was palpated, nontender, and cleared C-spine. Laceration was cleaned and repaired as noted. The patient was re-evaluated and was stable, able to ambulate in the emergency department without difficulty Evaluation was most consistent with fall, close head injury, back pain, elbow laceration, advised follow-up with her primary care physician, and to return for suture removal in 8 to 10 days. Results were discussed with the patient at this point, after careful consideration I feel that that patient can be discharged from the emergency department, the patient was educated treatments and reasons to return to the emergency department based on their presumed diagnosis as noted above, they were advised to followup with a primary care physician in 2-3 days. Patient was agreeable to plan of care. *Note is created using voice recognition software and may contain spelling, synt ax or grammatical errors. Cervical Spine CT 10/04/18 00:00 IMPRESSION: CHRONIC DEGENERATIVE CHANGES. NO ACUTE FINDINGS. Head CT 10/04/18 00:00 IMPRESSION: MILD CHRONIC MICROVASCULAR ISCHEMIA. NO ACUTE IMAGING FINDINGS IN THE BRAIN. EVIDENCE OF ACUTE STROKE: NO. - Vital Signs Vital signs: Temp Pulse Resp BP Pulse Ox 98 F 20 127/84 H 98 10/04/18 18:07 10/04/18 18:07 10/04/18 18:07 10/04/18 18:07 Procedures - Laceration/Wound Repair Right Elbow Wound length (cm): 1.5 Wound's Depth, Shape: Other - full thickness Laceration pre-procedure: Sterile drapes applied, Shur-Clens applied Anesthetic type: 1% Lidocaine Volume Anesthetic (mLs): 2 Wound explored: Clean, No foreign body removed Irrigated w/ Saline (mLs): 200 Wound Repaired With: Sutures Suture Size/Type: 4:0, Nylon Number of Sutures: 3 Layer Closure?: No Complications: No Discharge - Discharge Clinical Impression: Closed head injury Qualifiers: Encounter type: initial encounter Qualified Code(s): S09.90XA - Unspecified i njury of head, initial encounter Fall Qualifiers: Encounter type: initial encounter Qualified Code(s): W19.XXXA - Unspecified fall, initial encounter Laceration of right elbow Qualifiers: Encounter type: initial encounter Qualified Code(s): S51.011A - Laceration without foreign body of right elbow, initial encounter Condition: Stable Disposition: HOME, SELF-CARE Additional Instructions: Please follow-up with your primary care physician to have your stitches removed in 8 to 10 days, monitor for any signs of infection such as pus drainage or worsening redness, if you develop any worsening pain is not controlled with your home pain regimen, do not hesitate to return to the emergency department. Referrals: ROSLYN TOLEDO MD [Primary Care Provider] - Follow up in 1 week
[2018-10-04] MEDS ORDERED: LIDOCAINE 1% INJ-PF (10 MG/ML) 30 ML SDV INJ ONE (16:46)
[2018-10-04 18:24] VITALS: BP 127/84
== END 2018-10-04 18:24 | disposition home or self-care (01) ==
LOC: ER 14:33
DX: S51.011A Laceration without foreign body of right elbow, initial encounter (principal); S09.90XA Unspecified injury of head, initial encounter; R51 Headache; W01.0XXA Fall on same level from slipping, tripping and stumbling without subsequent striking against object, initial encounter; Y93.89 Activity, other specified; I67.82 Cerebral ischemia; M47.9 Spondylosis, unspecified; E66.9 Obesity, unspecified; M54.5 Low back pain; G89.29 Other chronic pain; Z79.891 Long term (current) use of opiate analgesic; I10 Essential (primary) hypertension; J44.9 Chronic obstructive pulmonary disease, unspecified; Z88.6 Allergy status to analgesic agent
CPT/HCPCS: 99284; 70450; 72125; 12001; J3490; A9270

== ENCOUNTER → 2018-11-18 | Outpatient (CLI) | payer MEDICARE, MEDICAID ==
--- NOTE | 2018-11-19 08:47 | RADIOLOGY REPORT (SQ) ---
EXAM DESCRIPTION: MRI LUMBAR SPINE WITHOUT COMPLETED DATE/TIME: 11/18/2018 6:20 pm REASON FOR STUDY: M48.54XA COLLAPSED VERTEBRA, NEC, THORACIC REGION, INIT M48.54XA COLLAPSED VERTEB RA, NEC, THORACIC REGION, INIT M54.5 LOW BACK PAIN COMPARISON: MRI lumbar spine 07/12/2015 Lumbar spine plain films 11/13/2018 TECHNIQUE: Sagittal and Axial imaging includes T1, T2, STIR and gradient echo sequences. Coronal T2/ HASTE imaging. LIMITATIONS: None. FINDINGS: VISUALIZED UPPER ABDOMEN: Limited evaluation. No acute or suspicious findings suggested. SEGMENTATION: No transitional anatomy. The lowest well-developed disc space is labeled L5-S1. ALIGNMENT: Convex leftward lumbar curvature VERTEBRAE: A subacute greater than 50% compression of T11 is present, with marrow edema paralleling t he upper endplate best shown on sagittal STIR image 8. BONE MARROW: Minimal marrow edema paralleling the upper endplate of T11 DISC SIGNAL: Diffuse decreased T2 weighted intervertebral disc signal POSTERIOR ELEMENTS: Generally intact. No pars defect evident. HARDWARE: None in the spine. CORD AND CONUS: Normal in size and signal intensity. Conus at the L2 level. SOFT TISSUES: No aortic aneurysm seen. No bulky retroperitoneal adenopathy or mass. No paraspinal mas s or fluid. T10-11: At the upper most edge of the field of view. Minimal posterior disc bulging and mild bilate ral facet hypertrophy is present with borderline central canal narrowing and mild bilateral foraminal narrowing. T11-12: Mild diffuse posterior disc bulging is present with mild bilateral facet and ligament hypert rophy. No central stenosis or significant foraminal narrowing. T12-L1: Chronic appearing central disc herniation with inferior migration of the extruded fragment. There is mild central canal stenosis at T12 from broad diffuse posterior disc bulging and bilateral facet and ligament hypertrophy. Mild bilateral foraminal narrowing. This is similar compared to MRI lumbar spine 07/12/2015 L1-L2: Mild diffuse posterior disc bulging, mild bilateral facet and ligament hypertrophy. Borderlin e central canal narrowing with mild bilateral inferior foraminal stenosis. No exiting L1 nerve root impingement L2-L3: Broad diffuse posterior disc bulge and bony spurring with right paracentral disc protrusion. This flattens the thecal sac at the takeoff of the proximal right L2 nerve root in the lateral recess best shown on axial T2 image 11. This is similar compared to 2016. Elsewhere at L2-3 there is mode rate bilateral foraminal narrowing without exiting L2 nerve root impingement. L3-L4: Broad diffuse posterior disc bulge and moderate bilateral facet and ligament hypertrophy cause borderline central canal narrowing and mild to moderate bilateral foraminal narrowing without exitin g L3 nerve root impingement L4-L5: Broad diffuse posterior disc bulge and moderate bilateral facet and ligament hypertrophy cause borderline central canal narrowing. No right foraminal narrowing. Mild left foraminal narrowing wi thout exiting L4 nerve root impingement. L5-S1: Broad diffuse posterior disc bulging, moderate bilateral facet and ligament hypertrophy. No c entral stenosis. Minimal right, mild left foraminal narrowing without exit L5 nerve root impingement SACRUM: Visualized upper sacrum intact. OTHER: No other significant findings. IMPRESSION: Subacute greater than 50% compression deformity at the T11 level Multilevel degenerative disc changes and central and foraminal stenosis similar compared to 07/12/2015 TECHNICAL DOCUMENTATION: JOB ID: [id number] [employer]- All Rights Reserved Reading location - IP/workstation name: [email or web address]
--- NOTE | 2018-11-19 08:53 | RADIOLOGY REPORT (SQ) ---
EXAM DESCRIPTION: MRI THORACIC SPINE WITHOUT COMPLETED DATE/TIME: 11/18/2018 6:20 pm REASON FOR STUDY: M48.54XA COLLAPSED VERTEBRA, NEC, THORACIC REGION, INIT M48.54XA COLLAPSED VERTEB RA, NEC, THORACIC REGION, INIT M54.5 LOW BACK PAIN COMPARISON: MRI lumbar spine 11/18/2018, 07/12/2015 CT lumbar spine 02/13/2018 TECHNIQUE: Sagittal and Axial imaging includes T1, T2, STIR and gradient echo sequences. LIMITATIONS: None. FINDINGS: LOCALIZER: No worrisome findings. ALIGNMENT: Normal. VERTEBRAE: A late subacute greater than 50% compression deformity of the T11 vertebral body is presen t, with a thin band of edema paralleling the sclerotic upper endplate best shown on sagittal image 7. Remainder of the thoracic spine vertebral bodies are intact. BONE MARROW: Minimal marrow edema paralleling the upper endplate of T11 as above HARDWARE: None in the spine. CORD: Normal in size and signal intensity. SOFT TISSUES: No soft tissue masses. THORACIC DISCS T1-T12: At T10-11, there is minimal retropulsion of the posterosuperior corner of the T11 vertebral body. This finding along with ligamentum flavum thickening and facet arthropathy cause s mild central canal narrowing at T10-11 level best shown on axial T2 images 18-20. Chronic appearing T12-L1 central disc herniation with the inferiorly migrated extruded fragment is pr esent unchanged from lumbar MRI in 2016. OTHER: No other significant finding. IMPRESSION: Subacute greater than 50% T11 vertebral body compression deformity TECHNICAL DOCUMENTATION: JOB ID: [id number] [employer]- All Rights Reserved Reading location - IP/workstation name: [email or web address]
== END ==
LOC: RAD 14:45
PROVIDERS: ATTEND Family Medicine
DX: M48.54XA Collapsed vertebra, not elsewhere classified, thoracic region, initial encounter for fracture (principal); M51.86 Other intervertebral disc disorders, lumbar region
CPT/HCPCS: 72146; 72148

== ENCOUNTER 2019-01-13 09:10 | Inpatient (IN) | payer MEDICARE, MEDICAID ==
--- NOTE | 2019-01-13 09:47 | ER Document Report ---
ED GI/ - General Chief Complaint: Vomiting Stated Complaint: VOMITING/DIRECT ADMIT Time Seen by Provider: 01/13/19 09:40 Notes: Patient is an 78-year-old female history of diabetes, hypertension, GERD, bipolar presents to the emergency department for 3 days of nonbloody vomiting. Patient states in the last 24 hours she has vomited over 6 times. States she is also had 2 episodes of non-bloody, non-dark tar diarrhea. Patient's denying any fevers, denies any dysuria. Patient is complaining of generalized "all over" abdominal pain. Patient did see her primary care provider Dr. Winn this morning. He has presented the patient to the emergency department with direct admit orders. Patient's vitals are within normal limits. TRAVEL OUTSIDE OF THE [place] IN LAST 30 DAYS: No - Related Data Allergies/Adverse Reactions: codeine Allergy (Verified 01/13/19 09:12) morphine [Morphine] Allergy (Verified 01/13/19 09:12) Past Medical History - General Information source: Patient - Social History Smoking Status: Unknown if Ever Smoked Family History: Reviewed & Not Pertinent - Past Medical History Cardiac Medical History: Reports: Hx Hypercholesterolemia, Hx Hypertension Pulmonary Medical History: Reports: Hx COPD Neurological Medical History: Denies: Hx Seizures Endocrine Medical History: Reports: Hx Diabetes Mellitus Type 2 - "borderline" Renal/ Medical History: Reports: Hx Ovarian Cysts. Denies: Hx Peritoneal Dialysis Malignancy Medical History: Reports: Hx Cervical Cancer - uterine cancer GI Medical History: Reports: Hx Gastroesophageal Reflux Disease Musculoskeletal Medical History: Reports Hx Arthritis - back, shoulders, and neck, Reports Hx Musculoskeletal Deformity - Chronic back pain arthritis and back shoulder or neck Psychiatric Medical History: Reports: Hx Bipolar Disorder, Hx Depression Past Surgical History: Reports: Hx Section, Hx Gynecologic Surgery, Hx Hysterectomy, Hx Orthopedic Surgery, Hx Tubal Ligation - Immunizations Immunizations up to date: Yes Hx Diphtheria, Pertussis, Tetanus Vaccination: Yes Hx Pneumococcal Vaccination: 02/01/13 Review of Systems - Review of Systems Constitutional: denies: Fever EENT: No symptoms reported Cardiovascular: No symptoms reported Respiratory: No symptoms reported Gastrointestinal: See HPI Genitourinary: See HPI Female Genitourinary: No symptoms reported Musculoskeletal: No symptoms reported Skin: No symptoms reported Hematologic/Lymphatic: No symptoms reported Neurological/Psychological: No symptoms reported Physical Exam - Vital signs Vitals: Temp Pulse Resp BP Pulse Ox 97.6 F 88 20 150/87 H 97 01/13/19 09:15 01/13/19 09:15 01/13/19 09:15 01/13/19 09:15 01/13/19 09:15 - Notes Notes: GENERAL: Alert, interacts well. No acute distress. HEAD: Normocephalic, atraumatic. EYES: Pupils equal, round, and reactive to light. Extraocular movements intact. ENT: Oral mucosa moist, tongue midline. NECK: Full range of motion. Supple. Trachea midline. LUNGS: Clear to auscultation bilaterally, no wheezes, rales, or rhonchi. No respiratory distress. HEART: Regular rate and rhythm. No murmur ABDOMEN: Soft, generalized tenderness noted all 4 quadrants. Non-distended. Bowel sounds present in all 4 quadrants. EXTREMITIES: Moves all 4 extremities spontaneously. No edema, normal radial and dorsalis pedis pulses bilaterally. No cyanosis. BACK: no cervical, thoracic, lumbar midline tenderness. No saddle anesthesia, normal distal neurovascular exam. NEUROLOGICAL: Alert and oriented x3. Normal speech. cranial nerves II through XII grossly intact PSYCH: Normal affect, normal mood. SKIN: Warm, dry, normal turgor. No rashes or lesions noted. Course - Re-evaluation Re-evalutation: 01/13/19 10:55 Nursing staff brings to my attention that there is a clean bed for patient's admission. Patient's blood work/UA has not resulted, patient CT abdomen and pelvis has also not been performed. Admitting physician Dr. Winn has already placed orders in the computer is accepting the patient for admission. - Vital Signs Vital signs: Temp Pulse Resp BP Pulse Ox 99.3 F 78 18 127/74 H 97 01/13/19 10:49 01/13/19 10:49 01/13/19 10:49 01/13/19 10:49 01/13/19 10:49 Discharge - Discharge Clinical Impression: Intractable vomiting Qualifiers: Vomiting type: unspecified Nausea presence: with nausea Qualified Code(s): R11.2 - Nausea with vomiting, unspecified Diarrhea Qualifiers: Diarrhea type: unspecified type Qualified Code(s): R19.7 - Diarrhea, unspecified Condition: Stable Disposition: ADMITTED INPATIENT Admitting Provider: [facility] Unit Admitted: Medical Floor
[2019-01-13] MEDS ORDERED: HYDROMORPHONE HCL INJ/PF 2 MG/ML AMPULE IV ONE (09:48)
[2019-01-13] MEDS ORDERED: ONDANSETRON HCL INJ/PF 4 MG/2 ML SDV IV ONE (09:48)
[2019-01-13] MEDS: POTASSI CL 40 MEQ/NS 1L 1,000 ML IV PRN ×2 (10:35→23:28)
[2019-01-13] MEDS: HYDROMORPHONE HCL INJ/PF 2 MG/ML AMPULE IV PRN ×3 (10:41→23:28)
[2019-01-13 12:18] LABS: ABSOLUTE BASOPHILS # (AUTO) 0.1 10^3/uL (0.0-0.2); ABSOLUTE EOSINOPHILS # (AUTO) 0.1 10^3/uL (0.0-0.6); ABSOLUTE LYMPHOCYTES (AUTO) 2.6 10^3/uL (0.5-4.7); ABSOLUTE MONOCYTES (AUTO) 0.8 10^3/uL (0.1-1.4); BASOPHILS % (AUTO) 1.4 % (0-2); EOSINOPHILS % (AUTO) 0.6 % (0-6); HEMATOCRIT 34.9 % (36.0-47.0); HEMOGLOBIN 11.8 g/dL (12.0-15.5); LYMPHOCYTES % (AUTO) 27.3 % (13-45); MEAN CORPUSCULAR HEMOGLOBIN 27.4 pg (27.0-33.4); MEAN CORPUSCULAR HGB CONC 33.8 g/dL (32.0-36.0); MEAN CORPUSCULAR VOLUME 81 fl (80-97); PLATELET COUNT 383 10^3/uL (150-450); RED CELL DISTRIBUTION WIDTH 14.9 % (11.5-14.0); SEGMENTED NEUTROPHILS % (AUTO) 62.7 % (42-78); TOTAL CELLS COUNTED % (AUTO) 100 %; WHITE BLOOD COUNT 9.5 10^3/uL (4.0-10.5)
[2019-01-13 12:27] LABS: ALBUMIN 3.6 g/dL (3.5-5.0); ALKALINE PHOSPHATASE 65 U/L (38-126); ANION GAP 11 (5-19); ASPARTATE AMINO TRANSFERASE 23 U/L (14-36); BILIRUBIN,DIRECT 0.1 mg/dL (0.0-0.4); BILIRUBIN,TOTAL 0.5 mg/dL (0.2-1.3); BLOOD UREA NITROGEN 8 mg/dL (7-20); CALCIUM 9.2 mg/dL (8.4-10.2); CARBON DIOXIDE 22 mmol/L (22-30); CHLORIDE 105 mmol/L (98-107); GLUCOSE 94 mg/dL (75-110); POTASSIUM 3.6 mmol/L (3.6-5.0); TOTAL PROTEIN 6.5 g/dL (6.3-8.2)
[2019-01-13 12:44] LABS: FREE T4 (FREE THYROXINE) 1.53 ng/dL (0.78-2.19)
[2019-01-13 12:56] LABS: APPEARANCE,URINE CLEAR; BILIRUBIN,URINE NEGATIVE (NEGATIVE); COLOR,URINE YELLOW; GLUCOSE, URINE NEGATIVE (NEGATIVE); KETONES,URINE NEGATIVE (NEGATIVE); LEUKOCYTE ESTERASE,URINE NEGATIVE (NEGATIVE); NITRITE,URINE NEGATIVE (NEGATIVE); PROTEIN,URINE NEGATIVE (NEGATIVE); URINE SPECIFIC GRAVITY 1.012; UROBILINOGEN,URINE NEGATIVE mg/dL (<2.0)
[2019-01-13 12:58] LABS: THYROID STIMULATING HORMONE 0.59 uIU/mL (0.47-4.68)
[2019-01-13 13:09] LABS: ADD MANUAL MICROSCOPIC YES
[2019-01-13 13:20] LABS: BACTERIA,URINE TRACE /HPF; RBC,URINE 0-1 /HPF
--- NOTE | 2019-01-13 14:02 | RADIOLOGY REPORT (SQ) ---
EXAM DESCRIPTION: CT ABD/PELVIS WITH IV ONLY COMPLETED DATE/TIME: 01/13/2019 1:28 pm REASON FOR STUDY: general pain COMPARISON: 04/09/2018. TECHNIQUE: CT scan of the abdomen and pelvis performed using helical scanning technique with dynamic intravenous contrast injection. No oral contrast. Images reviewed with lung, soft tissue, and bone windows. Reconstructed coronal and sagittal MPR images reviewed. Delayed images for evaluation of the urinary system also acquired. All images stored on PACS. All CT scanners at this facility use dose modulation, iterative reconstruction, and/or weight based d osing when appropriate to reduce radiation dose to as low as reasonably achievable (ALARA). [facility]: Dose Right [facility]: CareDose [facility]: Dose Right [facility]: Teradose 4D [facility]: [employer] CONTRAST TYPE AND DOSE: contrast/concentration: Isovue 350.00 mg/ml; Total Contrast Delivered: 82.0 ml; Total Saline Delivered: 30.8 ml RENAL FUNCTION: BUN 8 creatinine 0.66. RADIATION DOSE: CT Rad equipment meets quality standard of care and radiation dose reduction techniq ues were employed. CTDIvol: 7.7 - 9.1 mGy. DLP: 913 mGy-cm.. LIMITATIONS: Mild motion artifact. FINDINGS: LOWER CHEST: No significant findings. No nodules or infiltrates. LIVER: Normal size. Mild diffuse fatty infiltration. No masses. No dilated ducts. SPLEEN: Normal size. No focal lesions. PANCREAS: No masses. No significant calcifications. No adjacent inflammation or peripancreatic fluid collections. Pancreatic duct not dilated. GALLBLADDER: No identified stones by CT criteria. No inflammatory changes to suggest cholecystitis. ADRENAL GLANDS: No significant masses or asymmetry. RIGHT KIDNEY AND URETER: Cortical cyst. No solid masses. 3 mm calyceal calculus. No hydronephros is or hydroureter. LEFT KIDNEY AND URETER: No solid masses. No significant calcifications. No hydronephrosis or hydr oureter. AORTA AND VESSELS: No aneurysm. No dissection. Renal arteries, SMA, celiac without stenosis. RETROPERITONEUM: No retroperitoneal adenopathy, hemorrhage or masses. BOWEL AND PERITONEAL CAVITY: No masses or inflammatory changes. No free fluid or peritoneal masses. APPENDIX: Surgically absent. PELVIS: No mass. No free fluid. Normal bladder. ABDOMINAL WALL: No masses. No hernias. BONES: Degenerative changes in the spine. Old compression fracture of T11. OTHER: No other significant finding. IMPRESSION: 1. 3 MM NONOBSTRUCTING CALYCEAL CALCULUS IN THE RIGHT KIDNEY. 2. CORTICAL CYST IN THE RIGHT KIDNEY. MILD FATTY INFILTRATION OF THE LIVER. 3. CHRONIC CHANGES IN THE SPINE WITH OLD COMPRESSION DEFORMITY OF T 11. 4. NO OTHER SIGNIFICANT OR ACUTE FINDING IN THE ABDOMEN OR PELVIS ON CT SCAN WITH IV CONTRAST. TECHNICAL DOCUMENTATION: JOB ID: [id number] Quality ID # [id number]: Final reports with documentation of one or more dose reduction techniques (e.g., Au tomated exposure control, adjustment of the mA and/or kV according to patient size, use of iterative reconstruction technique) 2010 [email or web address]- All Rights Reserved Reading location - IP/workstation name: [email or web address]
[2019-01-13] MEDS ORDERED: (PENDING PHARMACY ID) (Megestrol Acetate [Megestrol Acetate] 40 MG) PO SCH (19:15)
[2019-01-13] MEDS: OXYCODONE HCL IR 5 MG TABLET PO SCH (20:09)
[2019-01-13] MEDS: ONDANSETRON 4 MG TAB.RAPDIS PO SCH (20:09)
[2019-01-13] MEDS: ATORVASTATIN CALCIUM 10 MG TABLET PO SCH ×2 (20:11→22:08)
[2019-01-13] MEDS: PRAMIPEXOLE DI-HCL 0.5 MG TABLET PO SCH (22:08)
--- NOTE | 2019-01-13 22:59 | PDOC H&P ---
History of Present Illness Admission Date/PCP: 01/13/19 09:50 ROSLYN TOLEDO MD History of Present Illness: ALANA ROMERO is a 78 year old female,She came to the office today for eval uation of persistent vomiting not able to keep any food down For the last 4 days, She was admitted directly from the office into the hospital. She also stated that she had diarrhea, it was loose stool there was no blood or mucus. Patient said she was scared because she lives alone she is having protracted vomiting she felt she could get dehydrated because she has had these before in the past when she was vomiting persistently on she did not present line of ultimately when she presented to the daycare system she was extremely dehydrated with acute kidney injury. CT of the abdomen and pelvis with contrast was obtained this was negative for any acute pathology Past Medical History Cardiac Medical History: Reports: Hyperlipidema, Hypertension Pulmonary Medical History: Reports: Chronic Obstructive Pulmonary Disease (COPD) Endocrine Medical History: Reports: Diabetes Mellitus Type 2 - "borderline" Malignancy Medical History: Reports: Cervical Cancer - uterine cancer GI Medical History: Reports: Gastroesophageal Reflux Disease Musculoskeltal Medical History: Reports: Arthritis - back, shoulders, and neck Psychiatric Medical History: Reports: Bipolar Disorder, Depression Past Surgical History Past Surgical History: Reports: Section, Hysterectomy, Orthopedic Surgery, Tubal Ligation Social History Smoking Status: Unknown if Ever Smoked Frequency of Alcohol Use: None Hx Recreational Drug Use: No Drugs: None Hx Prescription Drug Abuse: No Family History Family History: Reviewed & Not Pertinent Parental Family History Reviewed: Yes Children Family History Reviewed: Yes Sibling(s) Family History Reviewed.: Yes Medication/Allergy Home Medications: Atorvastatin Calcium [Lipitor 10 mg Tablet] 10 mg PO DAILY 01/13/19 Megestrol Acetate 40 mg PO BID 01/13/19 Ondansetron [Zofran Odt 4 mg Tablet] 8 mg PO BID 01/13/19 Oxycodone HCl [Oxy-Ir 5 mg Tablet] 5 mg PO BID 01/13/19 Pramipexole Di-HCl [Pramipexole Dihydrochloride] 0.5 mg PO BID 01/13/19 Tramadol HCl [Ultram 50 mg Tablet] 50 mg PO TIDP PRN 01/13/19 Allergies/Adverse Reactions: codeine Allergy (Verified 01/13/19 09:12) morphine [Morphine] Allergy (Verified 01/13/19 09:12) Review of Systems Constitutional: ABSENT: chills, fever(s), headache(s), weight gain, weight loss Eyes: ABSENT: visual disturbances Ears: ABSENT: hearing changes Cardiovascular: ABSENT: chest pain, dyspnea on exertion, edema, orthropnea, palpitations Respiratory: ABSENT: cough, hemoptysis Gastrointestinal: PRESENT: diarrhea, vomiting. ABSENT: abdominal pain, constipation, hematemesis, hematochezia, nausea Genitourinary: ABSENT: dysuria, hematuria Musculoskeletal: ABSENT: joint swelling Integumentary: ABSENT: rash, wounds Neurological: ABSENT: abnormal gait, abnormal speech, confusion, dizziness, focal weakness, syncope Psychiatric: ABSENT: anxiety, depression, homidical ideation, suicidal ideation Endocrine: ABSENT: cold intolerance, heat intolerance, menstrual abnormalities, polydipsia, polyuria Hematologic/Lymphatic: ABSENT: easy bleeding, easy bruising, lymphadenopathy Physical Exam Vital Signs: Temp Pulse Resp BP Pulse Ox 97.9 F 86 17 115/60 98 01/13/19 20:09 01/13/19 20:09 01/13/19 20:09 01/13/19 20:09 01/13/19 20:09 Intake & Output 01/12/19 01/13/19 01/14/19 06:59 06:59 06:59 Intake Total 451 Balance 451 Weight 72 kg General appearance: PRESENT: no acute distress, well-developed, well-nourished Head exam: PRESENT: atraumatic, normocephalic Eye exam: PRESENT: conjunctiva pink, EOMI, PERRLA Ear exam: PRESENT: normal external ear exam Mouth exam: PRESENT: moist, tongue midline Neck exam: PRESENT: full ROM Respiratory exam: PRESENT: clear to auscultation isak Cardiovascular exam: PRESENT: RRR. ABSENT: diastolic murmur, rubs, systolic murmur Pulses: PRESENT: normal dorsalis pedis pul, +2 pedal pulses bilateral Vascular exam: PRESENT: normal capillary refill GI/Abdominal exam: PRESENT: normal bowel sounds, soft Rectal exam: PRESENT: deferred Neurological exam: PRESENT: alert, CN II-XII grossly intact Psychiatric exam: PRESENT: appropriate affect, normal mood Skin exam: PRESENT: dry, intact, warm Results Laboratory Results: 01/13/19 11:54 01/13/19 11:54 01/13/19 01/13/19 01/13/19 11:54 11:54 11:54 WBC 9.5 RBC 4.30 Hgb 11.8 L Hct 34.9 L MCV 81 MCH 27.4 MCHC 33.8 RDW 14.9 H Plt Count 383 Seg Neutrophils % 62.7 Sodium 137.8 Potassium 3.6 Chloride 105 Carbon Dioxide 22 Anion Gap 11 BUN 8 Creatinine 0.66 Est GFR ( Amer) > 60 Glucose 94 Calcium 9.2 Total Bilirubin 0.5 AST 23 Alkaline Phosphatase 65 Total Protein 6.5 Albumin 3.6 Lipase 64.9 TSH 0.59 Free T4 1.53 Urine Color Urine Appearance Urine pH Ur Specific [place] Urine Protein Urine Glucose (UA) Urine Ketones Urine Blood Urine Nitrite Ur Leukocyte Esterase Ur Squamous Epith Cells 01/13/19 12:37 WBC RBC Hgb Hct MCV MCH MCHC RDW Plt Count Seg Neutrophils % Sodium Potassium Chloride Carbon Dioxide Anion Gap BUN Creatinine Est GFR ( Amer) Glucose Calcium Total Bilirubin AST Alkaline Phosphatase Total Protein Albumin Lipase TSH Free T4 Urine Color YELLOW Urine Appearance CLEAR Urine pH 8.0 Ur Specific [place] 1.012 Urine Protein NEGATIVE Urine Glucose (UA) NEGATIVE Urine Ketones NEGATIVE Urine Blood NEGATIVE Urine Nitrite NEGATIVE Ur Leukocyte Esterase NEGATIVE Ur Squamous Epith Cells FEW Impressions: Abdomen/Pelvis CT 01/13/19 09:47 IMPRESSION: 1. 3 MM NONOBSTRUCTING CALYCEAL CALCULUS IN THE RIGHT KIDNEY. 2. CORTICAL CYST IN THE RIGHT KIDNEY. MILD FATTY INFILTRATION OF THE LIVER. 3. CHRONIC CHANGES IN THE SPINE WITH OLD COMPRESSION DEFORMITY OF T 11. 4. NO OTHER SIGNIFICANT OR ACUTE FINDING IN THE ABDOMEN OR PELVIS ON CT SCAN WITH IV CONTRAST. Assessment & Plan - Diagnosis (1) Intractable vomiting Qualifiers: Vomiting type: unspecified Nausea presence: with nausea Qualified Code(s): R11.2 - Nausea with vomiting, unspecified Is this a current diagnosis for this admission?: Yes Plan: Patient was supposed to be on medication for the control of diabetes but on medication reconciliation no medication for the control of diabetes was listed, the exact etiology of the vomiting is not clear, the urinalysis is negative but she also stated that she has diarrhea, she has not been able to produce any sto ol specimen in the hospital for evaluation and no one noticed any vomiting since she was admitted as well, she is presently admitted for observation and management
[2019-01-14] MEDS: HYDROMORPHONE HCL INJ/PF 2 MG/ML AMPULE IV PRN ×3 (06:10→19:34)
--- NOTE | 2019-01-14 08:46 | EKG REPORT ---
SEVERITY:- ABNORMAL ECG - SINUS RHYTHM LEFT ANTERIOR FASCICULAR BLOCK LEFT VENTRICULAR HYPERTROPHY : Confirmed by: Enma Eckert MD 14-Jan-2019 08:46:13
[2019-01-14] MEDS: POTASSI CL 40 MEQ/NS 1L 1,000 ML IV PRN (08:53)
[2019-01-14] MEDS: ONDANSETRON 4 MG TAB.RAPDIS PO SCH ×2 (10:02→17:54)
[2019-01-14] MEDS: OXYCODONE HCL IR 5 MG TABLET PO SCH ×2 (10:02→17:54)
[2019-01-14] MEDS: PRAMIPEXOLE DI-HCL 0.5 MG TABLET PO SCH ×2 (10:04→21:16)
[2019-01-14] MEDS: MEGESTROL ACETATE 20 MG TABLET PO SCH ×2 (11:21→17:55)
[2019-01-14] MEDS: ATORVASTATIN CALCIUM 10 MG TABLET PO SCH (21:16)
[2019-01-14] MEDS: ACETAMINOPHEN 325 MG TABLET PO PRN (21:16)
[2019-01-14] MEDS: ONDANSETRON HCL INJ/PF 4 MG/2 ML SDV IV PRN (21:17)
[2019-01-15] MEDS: POTASSI CL 40 MEQ/NS 1L 1,000 ML IV PRN ×2 (03:17→14:26)
[2019-01-15] MEDS: HYDROMORPHONE HCL INJ/PF 2 MG/ML AMPULE IV PRN ×3 (03:17→20:12)
[2019-01-15] MEDS: ONDANSETRON 4 MG TAB.RAPDIS PO SCH ×2 (10:19→17:41)
[2019-01-15] MEDS: MEGESTROL ACETATE 20 MG TABLET PO SCH ×2 (10:20→17:42)
[2019-01-15] MEDS: PRAMIPEXOLE DI-HCL 0.5 MG TABLET PO SCH ×2 (10:20→21:56)
[2019-01-15] MEDS: OXYCODONE HCL IR 5 MG TABLET PO SCH ×2 (10:21→17:40)
[2019-01-15] MEDS: ACETAMINOPHEN 325 MG TABLET PO PRN ×2 (14:15→23:27)
--- NOTE | 2019-01-15 17:27 | PDOC PROGRESS REPORT ---
Subjective Progress Note for:: 01/15/19 Subjective:: Patient was admitted for the management of persistent vomiting, she continues to have difficulty with solid food, she has history of esophageal stricture that was dilated previously, she is of advanced age I do not think it is safe to discharge her home knowing fully well that she has esophageal stricture, presently symptomatic with vomiting this will increase risk of aspiration, the distribution center manager want her discharge because she was admitted for observation , I will request for consultation from surgicalist for EGD and for possible dilatation of the esophagus Reason For Visit: INTRACTABLE VOMITING Physical Exam Vital Signs: Temp Pulse Resp BP Pulse Ox 97.8 F 80 24 H 124/66 99 01/15/19 13:07 01/15/19 13:07 01/15/19 13:07 01/15/19 13:07 01/15/19 13:07 Intake & Output 01/14/19 01/15/19 01/16/19 06:59 06:59 06:59 Intake Total 2486 3103 1000 Output Total 402 Balance 2486 2701 1000 Weight 74.4 kg 75.2 kg General appearance: PRESENT: no acute distress Eye exam: PRESENT: PERRLA Respiratory exam: PRESENT: clear to auscultation isak Cardiovascular exam: PRESENT: +S1, +S2 GI/Abdominal exam: PRESENT: soft Results Laboratory Results: 01/13/19 11:54 01/13/19 11:54 Impressions: Abdomen/Pelvis CT 01/13/19 09:47 IMPRESSION: 1. 3 MM NONOBSTRUCTING CALYCEAL CALCULUS IN THE RIGHT KIDNEY. 2. CORTICAL CYST IN THE RIGHT KIDNEY. MILD FATTY INFILTRATION OF THE LIVER. 3. CHRONIC CHANGES IN THE SPINE WITH OLD COMPRESSION DEFORMITY OF T 11. 4. NO OTHER SIGNIFICANT OR ACUTE FINDING IN THE ABDOMEN OR PELVIS ON CT SCAN WITH IV CONTRAST. Assessment & Plan - Diagnosis (1) Intractable vomiting Qualifiers: Vomiting type: unspecified Nausea presence: with nausea Qualified Code(s): R11.2 - Nausea with vomiting, unspecified Is this a current diagnosis for this admission?: Yes (2) Esophageal stricture Is this a current diagnosis for this admission?: Yes Plan: Consult surgery for EGD, possible dilatation of esophageal stricture
--- NOTE | 2019-01-15 20:35 | PDOC CONSULTATION ---
Consultation Consult Date: 01/15/19 Attending physician:: ROSLYN TOLEDO Provider Consulted: JAIME CUEVAS Consult reason:: Abdominal pain History of Present Illness Admission Date/PCP: 01/13/19 09:50 ROSLYN TOLEDO MD History of Present Illness: ALANA ROMERO is a 78 year old female Who presents to the emergency department via ground rescue complaining of ab dominal pain nausea bloating difficulty swallowing and getting her food down. She has had multiple esophagogastroduodenoscopies over the last several years by doctors susan Samaniego and Piter with findings of gastritis only. There is an alleged history of esophageal stricture but I see no documentation of that. Patient has a strong family history of gallbladder disease, and still has her gallbladder. Her symptoms are twofold, dysphasia and postprandial bloating. She has had a colonoscopy in the remote past. Nursing staff states she is able to keep her liquids down without difficulty. Patient has a psychosocial history, and pain management issues as well. EGD was July 2018 with findings of gastritis only. Past Medical History Cardiac Medical History: Reports: Hyperlipidema, Hypertension Pulmonary Medical History: Reports: Chronic Obstructive Pulmonary Disease (COPD) Neurological Medical History: Denies: Seizures Endocrine Medical History: Reports: Diabetes Mellitus Type 2 - "borderline" Malignancy Medical History: Reports: Cervical Cancer - uterine cancer GI Medical History: Reports: Gastroesophageal Reflux Disease Musculoskeltal Medical History: Reports: Arthritis - back, shoulders, and neck Psychiatric Medical History: Reports: Bipolar Disorder, Depression Past Surgical History Past Surgical History: Reports: Section, Hysterectomy, Orthopedic Surgery, Tubal Ligation Social History Smoking Status: Unknown if Ever Smoked Frequency of Alcohol Use: None Hx Recreational Drug Use: No Drugs: None Hx Prescription Drug Abuse: No Family History Family History: Reviewed & Not Pertinent Parental Family History Reviewed: Yes Children Family History Reviewed: Yes Sibling(s) Family History Reviewed.: Yes Medication/Allergy Home Medications: Atorvastatin Calcium [Lipitor 10 mg Tablet] 10 mg PO DAILY 01/13/19 Megestrol Acetate 40 mg PO BID 01/13/19 Ondansetron [Zofran Odt 4 mg Tablet] 8 mg PO BID 01/13/19 Oxycodone HCl [Oxy-Ir 5 mg Tablet] 5 mg PO BID 01/13/19 Pramipexole Di-HCl [Pramipexole Dihydrochloride] 0.5 mg PO BID 01/13/19 Tramadol HCl [Ultram 50 mg Tablet] 50 mg PO TIDP PRN 01/13/19 Allergies/Adverse Reactions: codeine Allergy (Verified 01/13/19 09:12) morphine [Morphine] Allergy (Verified 01/13/19 09:12) Review of Systems Constitutional: PRESENT: as per HPI Eyes: ABSENT: visual disturbances Ears: ABSENT: hearing changes Gastrointestinal: PRESENT: as per HPI Musculoskeletal: PRESENT: other - Chronic back pain Physical Exam Vital Signs: Temp Pulse Resp BP Pulse Ox 98.4 F 81 24 H 138/84 H 100 01/15/19 16:51 01/15/19 16:51 01/15/19 16:51 01/15/19 16:51 01/15/19 16:51 Intake & Output 01/14/19 01/15/19 01/16/19 06:59 06:59 06:59 Intake Total 2486 3103 1475 Output Total 402 Balance 2486 2701 1475 Weight 74.4 kg 75.2 kg General appearance: PRESENT: mild distress Head exam: PRESENT: normocephalic Eye exam: PRESENT: EOMI Mouth exam: PRESENT: dry mucosa Neck exam: PRESENT: full ROM Respiratory exam: PRESENT: decreased breath sounds Cardiovascular exam: PRESENT: RRR Pulses: PRESENT: normal carotid pulses, normal radial pulses, normal femoral pulses GI/Abdominal exam: PRESENT: other - Well-healed scar consistent with previous gynecologic surgery; no peritoneal signs no rigidity. There is right upper quadrant tenderness. Rectal exam: PRESENT: deferred Musculoskeletal exam: PRESENT: other - Bedrest Neurological exam: PRESENT: altered, awake, oriented to person, oriented to place Psychiatric exam: PRESENT: appropriate affect Results Laboratory Results: 01/13/19 11:54 01/13/19 11:54 Impressions: Abdomen/Pelvis CT 01/13/19 09:47 IMPRESSION: 1. 3 MM NONOBSTRUCTING CALYCEAL CALCULUS IN THE RIGHT KIDNEY. 2. CORTICAL CYST IN THE RIGHT KIDNEY. MILD FATTY INFILTRATION OF THE LIVER. 3. CHRONIC CHANGES IN THE SPINE WITH OLD COMPRESSION DEFORMITY OF T 11. 4. NO OTHER SIGNIFICANT OR ACUTE FINDING IN THE ABDOMEN OR PELVIS ON CT SCAN WITH IV CONTRAST. Assessment & Plan - Diagnosis (1) Abdominal pain Qualifiers: Abdominal location: generalized Qualified Code(s): R10.84 - Generalized abdominal pain Is this a current diagnosis for this admission?: Yes Plan: Impression: Dysphasia and postprandial bloating; I cannot identify any record of esophageal stricture or dilatation in the EMR. History of multiple EGDs in the past with gastritis only. Recommendations: 1. We will set patient up for EGD, possible biopsy, possible polypectomy, [facility], conscious sedation, fifth floor, January 16 2. We will obtain ultrasound of the gallbladder to rule out cholelithiasis. (2) Back pain Qualifiers: Sciatica laterality: sciatica laterality unspecified Is this a current diagnosis for this admission?: Yes (3) Dysphagia Qualifiers: Dysphagia type: unspecified Qualified Code(s): R13.10 - Dysphagia, unspecified Is this a current diagnosis for this admission?: Yes (4) Gastroenteritis Is this a current diagnosis for this admission?: Yes (5) Spinal cord compression Is this a current diagnosis for this admission?: Yes (6) T2DM (type 2 diabetes mellitus) Qualifiers: Diabetes mellitus medical terminologist insulin use: without jail use Diabetes mellitus complication status: without complication Qualified Code(s): E11.9 - Type 2 diabetes mellitus without complications - Time Time Spent: 30 to 50 Minutes Smoking Cessation Education: 3 to 10 minutes Medications reviewed and adjusted accordingly: Yes Anticipated discharge: Home - Inpatient Certification Based on my medical assessment, after consideration of the patient's comor bidities, presenting symptoms, or acuity I expect that the services needed warrant INPATIENT care.: Yes I certify that my determination is in accordance with my understanding of Medicare's requirements for reasonable and necessary INPATIENT services [42 CFR 412.3e].: Yes Medical Necessity: Need For IV Fluids
[2019-01-15] MEDS: ATORVASTATIN CALCIUM 10 MG TABLET PO SCH (21:56)
[2019-01-16] MEDS: POTASSI CL 40 MEQ/NS 1L 1,000 ML IV PRN ×2 (00:30→12:58)
[2019-01-16] MEDS: HYDROMORPHONE HCL INJ/PF 2 MG/ML AMPULE IV PRN ×3 (03:22→18:01)
[2019-01-16] MEDS ORDERED: DIPHENHYDRAMINE HCL 50 MG/ML VIAL ONE (09:17)
[2019-01-16] MEDS ORDERED: NALOXONE HCL INJ/PF 0.4 MG/1 ML SDV ONE (09:17)
[2019-01-16] MEDS ORDERED: ONDANSETRON HCL INJ/PF 4 MG/2 ML SDV ONE (09:17)
[2019-01-16] MEDS ORDERED: FLUMAZENIL INJ 0.5 MG/5 ML VIAL ONE (09:17)
[2019-01-16] MEDS ORDERED: FENTANYL CITRATE INJ/PF 100 MCG/2 ML AMPUL ONE (09:17)
[2019-01-16] MEDS ORDERED: MIDAZOLAM 2 MG/2 ML INJ ONE (09:17)
[2019-01-16] MEDS ORDERED: GLUCAGON,HUMAN RECOMB 1 MG INJ ONE (09:18)
[2019-01-16] MEDS ORDERED: EPINEPHRINE INJ 1 MG/10 ML DISP.SYRIN ONE (09:18)
[2019-01-16] MEDS ORDERED: FENTANYL CITRATE INJ/PF 50 MCG/1 ML 50 ML SDV IV ONE (09:48)
[2019-01-16] MEDS ORDERED: MIDAZOLAM 2 MG/2 ML INJ IV ONE ×2 (09:48→09:55)
--- NOTE | 2019-01-16 10:11 | Operative Report ---
Operative Report DATE OF SURGERY: 01/16/19 PREOPERATIVE DIAGNOSIS: 1. Dysphasia. 2. Abdominal bloating POSTOPERATIVE DIAGNOSIS: Same with. 1. No evidence of esophageal stricture. 2. Diffuse distal esophagitis. 3. Small hiatal hernia OPERATION: 1. Esophagogastroduodenoscopy. 2. Gastric antral biopsy for CLOtest. 3. Distal esophageal mucosal biopsy SURGEON: JAIME CUEVAS ANESTHESIA: Moderate Sedation TISSUE REMOVED OR ALTERED: Mucosal biopsies COMPLICATIONS: None ESTIMATED BLOOD LOSS: Scant INTRAOPERATIVE FINDINGS: See below PROCEDURE: Patient taken at the fourth floor to the endoscopy suite where monitoring devices were attached, consent was provided, and appropriate level of conscious sedation induced Surgical plan and surgical timeout were conducted. The flexible upper endoscope was advanced to the oropharynx, down the esophagus through the stomach into the first and second portions of the duodenum. This is well-tolerated by the patient. The duodenum was grossly normal. Scope was brought back to the pylorus which was normal. The stomach was examined carefully in a prograde and retrograde fashion. There is a small hiatal hernia. There was no evidence of tumor stricture bleeding or polyp. The mucosa appeared normal. Random biopsy of the gastric antrum was performed using a cold forceps device, sent to pathology for LUCAS testing. The scope was brought back to the GE junction which was approximately 37 cm from the incisor. There was no evidence of esophageal stricture. There were diffuse circumferential changes to the mucosa consistent with a chronic esophagitis. There was no evidence of hemorrhage, ulceration or varices. A random biopsy of the distal esophagus was normal with a cold forceps device and sent to pathology. The upper and mid third of the esophagus were more normal in appearance. The scope was brought back to the hypopharynx. Patient tolerated the procedure well. Impression: No evidence of esophageal stricture, however changes consistent with chronic esophagitis status post EGD and biopsy Recommendations: 1. Await results of gallbladder ultrasound 2. Keep n.p.o. until after above study.
[2019-01-16] MEDS: ONDANSETRON 4 MG TAB.RAPDIS PO SCH ×2 (11:42→18:08)
[2019-01-16] MEDS: PRAMIPEXOLE DI-HCL 0.5 MG TABLET PO SCH ×2 (11:42→21:52)
[2019-01-16] MEDS: OXYCODONE HCL IR 5 MG TABLET PO SCH ×2 (11:42→21:51)
[2019-01-16] MEDS: MEGESTROL ACETATE 20 MG TABLET PO SCH ×2 (11:42→18:08)
--- NOTE | 2019-01-16 11:47 | RADIOLOGY REPORT (SQ) ---
EXAM DESCRIPTION: U/S ABDOMEN LIMITED W/O DOP COMPLETED DATE/TIME: 01/16/2019 11:30 am REASON FOR STUDY: nausea, vomiting and dirrhea R10.9 UNSPECIFIED ABDOMINAL PAIN COMPARISON: None. TECHNIQUE: Dynamic and static grayscale images acquired of the abdomen and recorded on PACS. Additio nal selected color Doppler and spectral images recorded. LIMITATIONS: None. FINDINGS: PANCREAS: No masses. Visualized pancreatic duct normal caliber. LIVER: No masses. Echotexture normal. LIVER VASCULATURE: Normal directional flow of the main portal vein and hepatic veins. GALLBLADDER: No stones. Normal wall thickness. No pericholecystic fluid. ULTRASOUND-DETECTED CHAVARRIA'S SIGN: Negative. INTRAHEPATIC DUCTS AND COMMON DUCT: CBD and intrahepatic ducts normal caliber. No filling defects. INFERIOR VENA CAVA: Normal flow. AORTA: No aneurysm. RIGHT KIDNEY: Normal size. Normal echogenicity. No solid or suspicious masses. No hydronephrosis. No calcifications. PERITONEAL AND RIGHT PLEURAL SPACE: No ascites or effusions. OTHER: No other significant findings. IMPRESSION: NORMAL RIGHT UPPER QUADRANT ULTRASOUND. TECHNICAL DOCUMENTATION: JOB ID: [id number] [employer]- All Rights Reserved Reading location - IP/workstation name: [email or web address]
[2019-01-16] MEDS: ACETAMINOPHEN 325 MG TABLET PO PRN ×2 (14:24→21:51)
--- NOTE | 2019-01-16 17:42 | PDOC PROGRESS REPORT ---
Subjective Progress Note for:: 01/16/19 Subjective:: Seen by the bedside she had upper endoscopy done today, there was no stricture of the esophagus Reason For Visit: ABDOMINAL PAIN Physical Exam Vital Signs: Temp Pulse Resp BP Pulse Ox 98.1 F 76 17 132/65 H 99 01/16/19 15:50 01/16/19 15:50 01/16/19 15:50 01/16/19 15:50 01/16/19 15:50 Intake & Output 01/15/19 01/16/19 01/17/19 06:59 06:59 06:59 Intake Total 3103 2895 1676 Output Total 402 200 Balance 2701 2895 1476 Weight 75.2 kg 76.2 kg General appearance: PRESENT: no acute distress Cardiovascular exam: PRESENT: +S1, +S2 GI/Abdominal exam: PRESENT: soft Neurological exam: PRESENT: alert Results Laboratory Results: 01/13/19 11:54 01/13/19 11:54 Impressions: Abdomen/Pelvis CT 01/13/19 09:47 IMPRESSION: 1. 3 MM NONOBSTRUCTING CALYCEAL CALCULUS IN THE RIGHT KIDNEY. 2. CORTICAL CYST IN THE RIGHT KIDNEY. MILD FATTY INFILTRATION OF THE LIVER. 3. CHRONIC CHANGES IN THE SPINE WITH OLD COMPRESSION DEFORMITY OF T 11. 4. NO OTHER SIGNIFICANT OR ACUTE FINDING IN THE ABDOMEN OR PELVIS ON CT SCAN WITH IV CONTRAST. Abdomen Ultrasound 01/16/19 10:41 IMPRESSION: NORMAL RIGHT UPPER QUADRANT ULTRASOUND. Assessment & Plan - Diagnosis (1) Intractable vomiting Qualifiers: Vomiting type: unspecified Nausea presence: with nausea Qualified Code(s): R11.2 - Nausea with vomiting, unspecified Is this a current diagnosis for this admission?: Yes Plan: Continue hydration (2) Abdominal pain Qualifiers: Abdominal location: right lower quadrant Qualified Code(s): R10.31 - Right lower quadrant pain Is this a current diagnosis for this admission?: Yes Plan: Ultrasound of the right upper quadrant negative
[2019-01-16] MEDS: ATORVASTATIN CALCIUM 10 MG TABLET PO SCH (21:52)
[2019-01-17] MEDS: HYDROMORPHONE HCL INJ/PF 2 MG/ML AMPULE IV PRN ×4 (00:14→18:44)
[2019-01-17] MEDS: ACETAMINOPHEN 325 MG TABLET PO PRN ×3 (03:52→21:57)
[2019-01-17] MEDS: ONDANSETRON 4 MG TAB.RAPDIS PO SCH ×2 (09:19→17:29)
[2019-01-17] MEDS: MEGESTROL ACETATE 20 MG TABLET PO SCH ×2 (09:19→17:30)
[2019-01-17] MEDS: OXYCODONE HCL IR 5 MG TABLET PO SCH ×2 (09:19→17:30)
[2019-01-17] MEDS: PRAMIPEXOLE DI-HCL 0.5 MG TABLET PO SCH ×2 (09:20→21:59)
--- NOTE | 2019-01-17 10:11 | PDOC PROGRESS REPORT ---
Subjective Progress Note for:: 01/17/19 Subjective:: Complains of frequent gas bloating and upper abdominal discomfort and reflux. Reason For Visit: ABDOMINAL PAIN Physical Exam Vital Signs: Temp Pulse Resp BP Pulse Ox 98.6 F 75 16 138/58 H 96 01/17/19 08:00 01/17/19 08:00 01/17/19 08:00 01/17/19 08:00 01/17/19 08:00 Intake & Output 01/16/19 01/17/19 01/18/19 06:59 06:59 06:59 Intake Total 2895 2112 Output Total 600 Balance 2895 1512 Weight 76.2 kg 75.1 kg General appearance: PRESENT: no acute distress, cooperative Respiratory exam: PRESENT: clear to auscultation isak Cardiovascular exam: PRESENT: RRR GI/Abdominal exam: PRESENT: other - Soft, nondistended, nontender to palpation Results Laboratory Results: 01/13/19 11:54 01/13/19 11:54 Impressions: Abdomen/Pelvis CT 01/13/19 09:47 IMPRESSION: 1. 3 MM NONOBSTRUCTING CALYCEAL CALCULUS IN THE RIGHT KIDNEY. 2. CORTICAL CYST IN THE RIGHT KIDNEY. MILD FATTY INFILTRATION OF THE LIVER. 3. CHRONIC CHANGES IN THE SPINE WITH OLD COMPRESSION DEFORMITY OF T 11. 4. NO OTHER SIGNIFICANT OR ACUTE FINDING IN THE ABDOMEN OR PELVIS ON CT SCAN WITH IV CONTRAST. Abdomen Ultrasound 01/16/19 10:41 IMPRESSION: NORMAL RIGHT UPPER QUADRANT ULTRASOUND. Assessment & Plan - Diagnosis (1) Gastroesophageal reflux disease with esophagitis Is this a current diagnosis for this admission?: Yes Plan: CT and ultrasound studies were unremarkable. Upper endoscopy demonstrated evidence of esophagitis. Recommend treating the patient with proton pump inhibitor. Gaviscon also since patient does have significant gas bloating symptoms. Recommend follow-up with gastroenterology as an outpatient. Provided that the biopsies does not show any unexpected findings may discharge patient home when okay with primary provider. Surgicalist service signing off, please call us for any questions.
[2019-01-17] MEDS ORDERED: [UNRECOGNIZED DRUG - OTHER] PO PRN (10:12)
[2019-01-17] MEDS ORDERED: ALUMINUM HYDROX PO PRN (10:12)
[2019-01-17 16:13] LABS: HEMOGLOBIN 12.5 g/dL (12.0-15.5); MEAN CORPUSCULAR HEMOGLOBIN 27.7 pg (27.0-33.4); MEAN CORPUSCULAR HGB CONC 33.8 g/dL (32.0-36.0); MEAN CORPUSCULAR VOLUME 82 fl (80-97); PLATELET COUNT 330 10^3/uL (150-450); WHITE BLOOD COUNT 10.2 10^3/uL (4.0-10.5)
[2019-01-17 16:37] LABS: ANION GAP 10 (5-19); BLOOD UREA NITROGEN 8 mg/dL (7-20); CALCIUM 9.1 mg/dL (8.4-10.2); CARBON DIOXIDE 20 mmol/L (22-30); CHLORIDE 106 mmol/L (98-107); GLUCOSE 103 mg/dL (75-110); POTASSIUM 4.7 mmol/L (3.6-5.0)
[2019-01-17] MEDS: PANTOPRAZOLE SODIUM 40 MG TABLET.DR PO SCH (17:31)
--- NOTE | 2019-01-17 20:28 | PDOC PROGRESS REPORT ---
Subjective Progress Note for:: 01/17/19 Subjective:: Complain of bloating of the abdomen, Acid reflux symptoms Reason For Visit: ABDOMINAL PAIN Physical Exam Vital Signs: Temp Pulse Resp BP Pulse Ox 97.9 F 81 20 129/60 H 96 01/17/19 15:36 01/17/19 15:36 01/17/19 15:36 01/17/19 15:36 01/17/19 15:36 Intake & Output 01/16/19 01/17/19 01/18/19 06:59 06:59 06:59 Intake Total 2895 2112 1840 Output Total 600 200 Balance 2895 1512 1640 Weight 76.2 kg 75.1 kg General appearance: PRESENT: no acute distress Eye exam: PRESENT: PERRLA Respiratory exam: PRESENT: clear to auscultation isak Cardiovascular exam: PRESENT: +S1, +S2 GI/Abdominal exam: PRESENT: soft Neurological exam: PRESENT: alert Results Laboratory Results: 01/17/19 16:02 01/17/19 16:02 01/17/19 01/17/19 16:02 16:02 WBC 10.2 RBC 4.50 Hgb 12.5 Hct 37.0 MCV 82 MCH 27.7 MCHC 33.8 RDW 15.0 H Plt Count 330 Sodium 135.5 L Potassium 4.7 Chloride 106 Carbon Dioxide 20 L Anion Gap 10 BUN 8 Creatinine 0.78 Est GFR ( Amer) > 60 Glucose 103 Calcium 9.1 Impressions: Abdomen/Pelvis CT 01/13/19 09:47 IMPRESSION: 1. 3 MM NONOBSTRUCTING CALYCEAL CALCULUS IN THE RIGHT KIDNEY. 2. CORTICAL CYST IN THE RIGHT KIDNEY. MILD FATTY INFILTRATION OF THE LIVER. 3. CHRONIC CHANGES IN THE SPINE WITH OLD COMPRESSION DEFORMITY OF T 11. 4. NO OTHER SIGNIFICANT OR ACUTE FINDING IN THE ABDOMEN OR PELVIS ON CT SCAN WITH IV CONTRAST. Abdomen Ultrasound 01/16/19 10:41 IMPRESSION: NORMAL RIGHT UPPER QUADRANT ULTRASOUND. Assessment & Plan - Diagnosis (1) Intractable vomiting Qualifiers: Vomiting type: unspecified Nausea presence: with nausea Qualified Co de(s): R11.2 - Nausea with vomiting, unspecified Is this a current diagnosis for this admission?: Yes Plan: She was admitted for evaluation of intractable vomiting, abdominal pain upper endoscopy was done, there was no stricture (2) Abdominal pain Qualifiers: Abdominal location: right lower quadrant Qualified Code(s): R10.31 - Right lower quadrant pain Is this a current diagnosis for this admission?: Yes Plan: Ultrasound of the right upper quadrant negative
[2019-01-17] MEDS: ATORVASTATIN CALCIUM 10 MG TABLET PO SCH (21:59)
[2019-01-18] MEDS: HYDROMORPHONE HCL INJ/PF 2 MG/ML AMPULE IV PRN ×4 (00:26→20:18)
[2019-01-18] MEDS: PANTOPRAZOLE SODIUM 40 MG TABLET.DR PO SCH ×2 (06:48→17:19)
[2019-01-18] MEDS: ACETAMINOPHEN 325 MG TABLET PO PRN (08:34)
[2019-01-18] MEDS: MEGESTROL ACETATE 20 MG TABLET PO SCH ×2 (09:35→17:19)
[2019-01-18] MEDS: OXYCODONE HCL IR 5 MG TABLET PO SCH ×2 (09:35→17:19)
[2019-01-18] MEDS: PRAMIPEXOLE DI-HCL 0.5 MG TABLET PO SCH ×2 (09:35→22:46)
[2019-01-18] MEDS: ONDANSETRON 4 MG TAB.RAPDIS PO SCH ×2 (09:35→17:19)
--- NOTE | 2019-01-18 21:43 | PDOC PROGRESS REPORT ---
Subjective Progress Note for:: 01/18/19 Subjective:: Complain of bloating of the abdomen, Acid reflux symptoms, She probably be discharged home Reason For Visit: ABDOMINAL PAIN Physical Exam Vital Signs: Temp Pulse Resp BP Pulse Ox 98.4 F 96 20 130/58 H 94 01/18/19 15:17 01/18/19 15:17 01/18/19 15:17 01/18/19 15:17 01/18/19 15:17 Intake & Output 01/17/19 01/18/19 01/19/19 06:59 06:59 06:59 Intake Total 2112 2160 1200 Output Total 600 200 Balance 1512 1960 1200 Weight 75.1 kg 75.2 kg General appearance: PRESENT: no acute distress Head exam: PRESENT: atraumatic, normocephalic Eye exam: PRESENT: PERRLA Ear exam: PRESENT: normal external ear exam Mouth exam: PRESENT: moist, tongue midline Neck exam: PRESENT: full ROM Respiratory exam: PRESENT: clear to auscultation isak Cardiovascular exam: PRESENT: RRR, +S1, +S2 Vascular exam: PRESENT: normal capillary refill GI/Abdominal exam: PRESENT: normal bowel sounds, soft Rectal exam: PRESENT: deferred Neurological exam: PRESENT: alert Psychiatric exam: PRESENT: appropriate affect, normal mood Skin exam: PRESENT: dry, intact, warm. ABSENT: cyanosis, rash Results Laboratory Results: 01/17/19 16:02 01/17/19 16:02 Impressions: Abdomen/Pelvis CT 01/13/19 09:47 IMPRESSION: 1. 3 MM NONOBSTRUCTING CALYCEAL CALCULUS IN THE RIGHT KIDNEY. 2. CORTICAL CYST IN THE RIGHT KIDNEY. MILD FATTY INFILTRATION OF THE LIVER. 3. CHRONIC CHANGES IN THE SPINE WITH OLD COMPRESSION DEFORMITY OF T 11. 4. NO OTHER SIGNIFICANT OR ACUTE FINDING IN THE ABDOMEN OR PELVIS ON CT SCAN WITH IV CONTRAST. Abdomen Ultrasound 01/16/19 10:41 IMPRESSION: NORMAL RIGHT UPPER QUADRANT ULTRASOUND. Assessment & Plan - Diagnosis (1) Intractable vomiting Qualifiers: Vomiting type: unspecified Nausea presence: with nausea Qualified Code(s): R11.2 - Nausea with vomiting, unspecified Is this a current diagnosis for this admission?: Yes Plan: She was admitted for evaluation of intractable vomiting, abdominal pain upper en doscopy was done, there was no stricture (2) Abdominal pain Qualifiers: Abdominal location: right lower quadrant Qualified Code(s): R10.31 - Right lower quadrant pain Is this a current diagnosis for this admission?: Yes
[2019-01-18] MEDS: ATORVASTATIN CALCIUM 10 MG TABLET PO SCH (22:47)
[2019-01-19] MEDS: HYDROMORPHONE HCL INJ/PF 2 MG/ML AMPULE IV PRN ×4 (02:38→22:18)
[2019-01-19] MEDS: PANTOPRAZOLE SODIUM 40 MG TABLET.DR PO SCH ×2 (05:38→16:23)
[2019-01-19] MEDS: ACETAMINOPHEN 325 MG TABLET PO PRN (06:34)
[2019-01-19] MEDS: OXYCODONE HCL IR 5 MG TABLET PO SCH ×2 (09:49→17:35)
[2019-01-19] MEDS: PRAMIPEXOLE DI-HCL 0.5 MG TABLET PO SCH ×2 (09:50→22:18)
[2019-01-19] MEDS: MEGESTROL ACETATE 20 MG TABLET PO SCH ×2 (09:50→17:35)
[2019-01-19] MEDS: ONDANSETRON 4 MG TAB.RAPDIS PO SCH ×2 (09:51→17:35)
[2019-01-19] MEDS ORDERED: GUAIFENESIN SYRP 200 MG/10 ML UDC PO PRN (16:18)
[2019-01-19] MEDS ORDERED: BISACODYL 5 MG TABEC PO ONE (17:00)
--- NOTE | 2019-01-19 18:20 | PDOC DISCHARGE SUMMARY ---
General - Admit/Disc Date/PCP Admission Date/Primary Care Provider: 01/16/19 14:03 ROSLYN TOLEDO MD Discharge Date: 01/19/19 - Discharge Diagnosis (1) Intractable vomiting Is this a current diagnosis for this admission?: Yes (2) Abdominal pain Is this a current diagnosis for this admission?: Yes (3) Gastroesophageal reflux disease with esophagitis Is this a current diagnosis for this admission?: Yes - Additional Information Prescriptions: Pantoprazole Sodium [Protonix [address] Tablet] 40 mg PO DAILY #90 tablet. Home Medications: Megestrol Acetate 40 mg PO BID 01/13/19 Ondansetron [Zofran Odt 4 mg Tablet] 8 mg PO BID 01/13/19 Oxycodone HCl [Oxy-Ir 5 mg Tablet] 5 mg PO BID 01/13/19 Pramipexole Di-HCl [Pramipexole Dihydrochloride] 0.5 mg PO BID 01/13/19 Pantoprazole Sodium [Protonix [address] Tablet] 40 mg PO DAILY #90 tablet. 01/19/19 History of Present Illness History of Present Illness: ALANA ROMERO is a 78 year old female,She came to the office today for evaluation of persistent vomiting not able to keep any food down For the last 4 days, She was admitted directly from the office into the hospital. She also stated that she had diarrhea, it was loose stool there was no blood or mucus. Patient said she was scared because she lives alone she is having protracted vomiting she felt she could get dehydrated because she has had these before in the past when she was vomiting persistently on she did not present line of ultimately when she presented to the daycare system she was extremely dehydrated with acute kidney injury. CT of the abdomen and pelvis with contrast was obtain ed this was negative for any acute pathology Hospital Course Hospital Course: Patient was admitted for the management of intractable vomiting with abdominal pain. She was admitted initially for observation, the CAT scan of the abdomen and pelvis with contrast was negative. Patient kept vomiting without any apparent cause, she also complained of dysphagia, she has a history of stricture that was evaluated by Dr. Wallis in previous years and she underwent dilatation of the esophagus.Because of this history and also the fact that she complained of dysphagia I thought she would need EGD and requested consultation from the surgicalist, she underwent EGD there was no stricture demonstrated but she was found to have a circumferential distal esophagitis,Mclean to be due to acid reflux.Because of the intractable vomiting she required intravenous fluids to re store volume,She was initially admitted for observation because of the intractable vomiting the observation status was changed to inpatient status Physical Exam Vital Signs: Temp Pulse Resp BP Pulse Ox 98.3 F 97 20 139/70 H 98 01/19/19 16:54 01/19/19 16:54 01/18/19 15:17 01/19/19 16:54 01/19/19 16:54 Intake & Output 01/18/19 01/19/19 01/20/19 06:59 06:59 06:59 Intake Total 2160 1560 Output Total 200 Balance 1960 1560 Weight 75.2 kg 75.7 kg General appearance: PRESENT: no acute distress, well-developed, well-nourished Head exam: PRESENT: atraumatic, normocephalic Eye exam: PRESENT: conjunctiva pink, EOMI, PERRLA Ear exam: PRESENT: normal external ear exam Mouth exam: PRESENT: moist, tongue midline Neck exam: PRESENT: full ROM Respiratory exam: PRESENT: clear to auscultation isak Cardiovascular exam: PRESENT: RRR, +S1, +S2 Vascular exam: PRESENT: normal capillary refill GI/Abdominal exam: PRESENT: normal bowel sounds, soft Rectal exam: PRESENT: deferred Neurological exam: PRESENT: alert, CN II-XII grossly intact Psychiatric exam: PRESENT: appropriate affect, normal mood Skin exam: PRESENT: dry, intact, warm Results Laboratory Results: 01/17/19 16:02 01/17/19 16:02 Impressions: Abdomen/Pelvis CT 01/13/19 09:47 IMPRESSION: 1. 3 MM NONOBSTRUCTING CALYCEAL CALCULUS IN THE RIGHT KIDNEY. 2. CORTICAL CYST IN THE RIGHT KIDNEY. MILD FATTY INFILTRATION OF THE LIVER. 3. CHRONIC CHANGES IN THE SPINE WITH OLD COMPRESSION DEFORMITY OF T 11. 4. NO OTHER SIGNIFICANT OR ACUTE FINDING IN THE ABDOMEN OR PELVIS ON CT SCAN WITH IV CONTRAST. Abdomen Ultrasound 01/16/19 10:41 IMPRESSION: NORMAL RIGHT UPPER QUADRANT ULTRASOUND. Qualifiers - * PATIENT BEING DISCHARGED WITH ANY OF THE FOLLOWING DIAGNOSIS: No VTE patient discharged on overlapping Therapy?: No Stroke Pt being discharged on Anti-thrombolytic therapy?: No Reason(s) for not prescribing Anti-thrombolytic therapy:: Not indicated Stroke Pt being discharged on Anti-coagulation therapy?: No Reason(s) for not prescribing Anti-coagulation therapy:: Not indicated Stroke Pt being discharged on Statins?: No Reason(s) for not prescribing Statins therapy:: Not indicated MS Pt being discharged on Aspirin therapy?: No Reason(s) for not prescribing Aspirin therapy:: Not indicated MS Pt being discharged on Statins?: No Reason(s) for not prescribing Statin therapy:: Not indicated MS Pt discharged ACEI/ARBS?: No Reason(s) for not prescribing ACEI/ARBS:: Not indicated Acute Heart Failure - Is this a Heart Failure Patient?: No Follow-up Appointment scheduled within 7 days?: Yes
[2019-01-19] MEDS: ATORVASTATIN CALCIUM 10 MG TABLET PO SCH (22:18)
[2019-01-19] MEDS: ONDANSETRON HCL INJ/PF 4 MG/2 ML SDV IV PRN (23:27)
[2019-01-20] MEDS: ACETAMINOPHEN 325 MG TABLET PO PRN ×2 (02:44→10:00)
[2019-01-20] MEDS: PANTOPRAZOLE SODIUM 40 MG TABLET.DR PO SCH (05:51)
[2019-01-20] MEDS: HYDROMORPHONE HCL INJ/PF 2 MG/ML AMPULE IV PRN (05:51)
[2019-01-20] MEDS: OXYCODONE HCL IR 5 MG TABLET PO SCH (09:57)
[2019-01-20] MEDS: ONDANSETRON 4 MG TAB.RAPDIS PO SCH (09:57)
[2019-01-20] MEDS: PRAMIPEXOLE DI-HCL 0.5 MG TABLET PO SCH (09:58)
[2019-01-20] MEDS: MEGESTROL ACETATE 20 MG TABLET PO SCH (09:58)
[2019-01-20] MEDS ORDERED: PANTOPRAZOLE SODIUM 20 MG TABLET.DR PO SCH (10:00)
[2019-01-20 12:56] VITALS: BP 138/58
== END 2019-01-20 13:35 | disposition home health service (06) | DRG 392 ==
LOC: ER 09:10 → INTOOBSV 09:50 → EH 09:50 → 4S 11:30 → OBSVTOIN 01-16 14:03
PROVIDERS: ADMIT Internal Medicine; ATTEND Internal Medicine
PROC: 0DB78ZX Excision of Stomach, Pylorus, Via Natural or Artificial Opening Endoscopic, Diagnostic (ICD-10-PCS; 2019-01-16)
PROC: 0DB38ZX Excision of Lower Esophagus, Via Natural or Artificial Opening Endoscopic, Diagnostic (ICD-10-PCS; principal; 2019-01-16 09:30)
DX: K21.0 Gastro-esophageal reflux disease with esophagitis (principal); G95.20 Unspecified cord compression; E78.5 Hyperlipidemia, unspecified; I10 Essential (primary) hypertension; J44.9 Chronic obstructive pulmonary disease, unspecified; E11.9 Type 2 diabetes mellitus without complications; F31.9 Bipolar disorder, unspecified; G47.00 Insomnia, unspecified; M81.0 Age-related osteoporosis without current pathological fracture; F41.9 Anxiety disorder, unspecified; K44.9 Diaphragmatic hernia without obstruction or gangrene; Z79.899 Other long term (current) drug therapy; Z85.41 Personal history of malignant neoplasm of cervix uteri; Z88.6 Allergy status to analgesic agent
CPT/HCPCS: 36415; 43239; 74177; 76705; 80048; 80076; 81001; 83690; 84439; 84443; 85025; 85027; 88305; 93005; 93010; 99285; G0378; J0171; J1170; J1200; J1610; J2250; J2310; J2405; J3010; J3480; J3490; S0119

== ENCOUNTER 2019-02-06 15:03 | Emergency (ER) | payer MEDICARE, MEDICAID ==
[2019-02-06 15:22] LABS: ABSOLUTE BASOPHILS # (AUTO) 0.1 10^3/uL (0.0-0.2); ABSOLUTE EOSINOPHILS # (AUTO) 0.1 10^3/uL (0.0-0.6); ABSOLUTE LYMPHOCYTES (AUTO) 2.1 10^3/uL (0.5-4.7); ABSOLUTE MONOCYTES (AUTO) 0.6 10^3/uL (0.1-1.4); ABSOLUTE NEUT (AUTO) 5.3 10^3/uL (1.7-8.2); BASOPHILS % (AUTO) 1.2 % (0-2); EOSINOPHILS % (AUTO) 1.2 % (0-6); HEMATOCRIT 35.5 % (36.0-47.0); HEMOGLOBIN 11.8 g/dL (12.0-15.5); LYMPHOCYTES % (AUTO) 26.1 % (13-45); MEAN CORPUSCULAR HEMOGLOBIN 27.3 pg (27.0-33.4); MEAN CORPUSCULAR HGB CONC 33.1 g/dL (32.0-36.0); MEAN CORPUSCULAR VOLUME 82 fl (80-97); MONOCYTES % (AUTO) 7.4 % (3-13); PLATELET COUNT 350 10^3/uL (150-450); RED BLOOD COUNT 4.31 10^6/uL (3.72-5.28); SEGMENTED NEUTROPHILS % (AUTO) 64.1 % (42-78); TOTAL CELLS COUNTED % (AUTO) 100 %; WHITE BLOOD COUNT 8.2 10^3/uL (4.0-10.5)
[2019-02-06] MEDS ORDERED: KETOROLAC TROMETHAMINE INJ/PF 30 MG/1 ML SDV IV ONE ×2 (15:27→16:35)
--- NOTE | 2019-02-06 15:27 | ER Document Report ---
ED Dizziness/Weakness - General Chief Complaint: Dizziness Stated Complaint: FALL/BACK PAIN Time Seen by Provider: 02/06/19 15:20 Primary Care Provider: ROSLYN TOLEDO MD [Primary Care Provider] - Follow up as needed Mode of Arrival: Medic TRAVEL OUTSIDE OF THE [place] IN LAST 30 DAYS: No - HPI Patient complains to provider of: Dizziness - pt. was opening freezer and fell backwards earlier today. Was somewhat dizzy as well. No LOC, no neck pain. Has LBP. Normally walks with a walker at home. Lives alone. Denies CP, SOB - Related Data Allergies/Adverse Reactions: codeine Allergy (Verified 01/13/19 09:12) morphine [Morphine] Allergy (Verified 01/13/19 09:12) Past Medical History - General Information source: Patient - Social History Smoking Status: Never Smoker Family History: Reviewed & Not Pertinent Patient has suicidal ideation: No Patient has homicidal ideation: No - Past Medical History Cardiac Medical History: Reports: Hx Hypercholesterolemia, Hx Hypertension Pulmonary Medical History: Reports: Hx COPD Neurological Medical History: Denies: Hx Seizures, Hx Parkinson's Disease Endocrine Medical History: Reports: Hx Diabetes Mellitus Type 2 - "borderline" Renal/ Medical History: Reports: Hx Ovarian Cysts. Denies: Hx Peritoneal Dialysis Malignancy Medical History: Reports: Hx Cervical Cancer - uterine cancer GI Medical History: Reports: Hx Gastroesophageal Reflux Disease Musculoskeletal Medical History: Reports Hx Arthritis - back, shoulders, and neck, Reports Hx Musculoskeletal Deformity - Chronic back pain arthritis and back shoulder or neck Psychiatric Medical History: Reports: Hx Bipolar Disorder, Hx Depression Past Surgical History: Reports: Hx Section, Hx Gynecologic Surgery, Hx Orthopedic Surgery, Hx Tubal Ligation. Denies: Hx Hysterectomy - Immunizations Immunizations up to date: Yes Hx Diphtheria, Pertussis, Tetanus Vaccination: Yes Hx Pneumococcal Vaccination: 02/01/13 Review of Systems - Review of Systems Constitutional: Weakness EENT: No symptoms reported Cardiovascular: See HPI, Dizziness Respiratory: No symptoms reported Gastrointestinal: No symptoms reported Musculoskeletal: See HPI, Back pain Neurological/Psychological: Weakness -: Yes All other systems reviewed and negative Physical Exam - Vital signs Vitals: Temp Pulse Resp BP Pulse Ox 98.2 F 91 18 166/91 H 99 02/06/19 15:14 02/06/19 15:14 02/06/19 15:14 02/06/19 15:14 02/06/19 15:14 - General General appearance: Appears well, Alert In distress: None - HEENT Head: Normocephalic Pupils: PERRL Mouth/Lips: Normal Mucous membranes: Normal Pharynx: Normal Neck: Normal - Respiratory Respiratory status: No respiratory distress Breath sounds: Normal - Cardiovascular Rhythm: Regular Heart sounds: Normal auscultation Murmur: No - Abdominal Inspection: Normal Bowel sounds: Normal Tenderness: Nontender - Back Back: Tender - there is min-mod TTP of the lumbar spine diffusely; N/V intact - Extremities General upper extremity: Normal inspection General lower extremity: Normal inspection - Neurological Neuro grossly intact: Yes Cognition: Normal Orientation: AAOx4 Speech: Normal Motor strength normal: LUE, RUE, LLE, RLE Sensory: Normal Course - Re-evaluation Re-evalutation: 02/06/19 17:42 Pt. felt much better at the end of her w/u. She was able to ambulate several steps with a walker (like she has at home) without difficulty. We have replaced her K+ deficit and she has expressed a desire to return home. She has a friend coming to take her home.. - Vital Signs Vital signs: Temp Pulse Resp BP Pulse Ox 98.2 F 91 24 H 154/87 H 98 02/06/19 15:14 02/06/19 15:14 02/06/19 17:02 02/06/19 16:01 02/06/19 17:02 - Laboratory Result Diagrams: 02/06/19 15:11 02/06/19 15:11 Laboratory results interpreted by me: 02/06/19 02/06/19 15:11 15:11 Hgb 11.8 L Hct 35.5 L RDW 15.0 H Potassium 2.8 L* Chloride 109 H Carbon Dioxide 18 L Glucose 133 H Total Protein 6.1 L Albumin 3.3 L - Diagnostic Test Radiology reviewed: Reports reviewed - ct lumbar spine - neg acute fx - EKG Interpretation by Me EKG shows normal: Sinus rhythm Rate: Normal Rhythm: NSR - nsr without acute change Discharge - Discharge Clinical Impression: Hypokalemia Fall Qualifiers: Encounter type: subsequent encounter Qualified Code(s): W19.XXXD - Unspecified fall, subsequent encounter Condition: Stable Disposition: HOME, SELF-CARE Additional Instructions: rest, continue current meds, return if worse Referrals: ROSLYN TOLEDO MD [Primary Care Provider] - Follow up as needed
[2019-02-06 15:43] LABS: ALBUMIN 3.3 g/dL (3.5-5.0); ALKALINE PHOSPHATASE 47 U/L (38-126); ANION GAP 11 (5-19); ASPARTATE AMINO TRANSFERASE 20 U/L (14-36); BILIRUBIN,DIRECT 0.2 mg/dL (0.0-0.4); BILIRUBIN,TOTAL 0.2 mg/dL (0.2-1.3); BLOOD UREA NITROGEN 15 mg/dL (7-20); CALCIUM 8.5 mg/dL (8.4-10.2); CARBON DIOXIDE 18 mmol/L (22-30); CHLORIDE 109 mmol/L (98-107); CREATINE KINASE 43 U/L (30-135); GLUCOSE 133 mg/dL (75-110); TOTAL PROTEIN 6.1 g/dL (6.3-8.2)
[2019-02-06 15:50] LABS: POTASSIUM 2.8 mmol/L (3.6-5.0)
[2019-02-06] MEDS ORDERED: POTASSIUM CHLORIDE 10 MEQ CAPSULE.ER PO ONE (15:51)
[2019-02-06 15:54] LABS: CREATINE KINASE MB 1.01 ng/mL (<4.55)
[2019-02-06 15:56] LABS: TROPONIN I < 0.012 ng/mL
[2019-02-06 16:11] LABS: APPEARANCE,URINE CLEAR; BILIRUBIN,URINE NEGATIVE (NEGATIVE); COLOR,URINE STRAW; GLUCOSE, URINE NEGATIVE (NEGATIVE); KETONES,URINE NEGATIVE (NEGATIVE); LEUKOCYTE ESTERASE,URINE NEGATIVE (NEGATIVE); NITRITE,URINE NEGATIVE (NEGATIVE); PROTEIN,URINE NEGATIVE (NEGATIVE); URINE SPECIFIC GRAVITY 1.004; UROBILINOGEN,URINE NEGATIVE mg/dL (<2.0)
--- NOTE | 2019-02-06 16:32 | RADIOLOGY REPORT (SQ) ---
EXAM DESCRIPTION: CT LUMBAR SPINE WITHOUT COMPLETED DATE/TIME: 02/06/2019 4:10 pm REASON FOR STUDY: fall COMPARISON: 01/13/2019 TECHNIQUE: Axial images acquired through the lumbar spine without intravenous contrast. Images revie wed with lung, soft tissue and bone windows. Reconstructed coronal and sagittal MPR images reviewed. Images stored on PACS. All CT scanners at this facility use dose modulation, iterative reconstruction, and/or weight based d osing when appropriate to reduce radiation dose to as low as reasonably achievable (ALARA). [facility]: Dose Right [facility]: CareDose [facility]: Dose Right [facility]: Teradose 4D [facility]: Smart Sunfire RADIATION DOSE: mGy. LIMITATIONS: None. FINDINGS: SOFT TISSUES: No acute findings. SEGMENTATION: Normal. No transitional anatomy. ALIGNMENT: Normal. VERTEBRAL BODIES: No acute fractures. No dislocation. No acute findings. DISCS: Moderate degenerative disc disease. PEDICLES, TRANSVERSE PROCESSES: No fractures. No dislocation. No acute findings. FACETS, POSTERIOR ELEMENTS: No fractures. No dislocation. Moderate facet arthrosis. HARDWARE: None in the spine. VISUALIZED RIBS: No fractures. OTHER: No other significant finding. IMPRESSION: DEGENERATIVE CHANGES IN THE LUMBAR SPINE WITHOUT ACUTE FRACTURE OR DISLOCATION. TECHNICAL DOCUMENTATION: JOB ID: [id number] Quality ID # [id number]: Final reports with documentation of one or more dose reduction techniques (e.g., Au tomated exposure control, adjustment of the mA and/or kV according to patient size, use of iterative reconstruction technique) 2010 [employer]- All Rights Reserved Reading location - IP/workstation name: [email or web address]
[2019-02-06 16:34] VITALS: BP 154/87
--- NOTE | 2019-02-06 22:38 | EKG REPORT ---
SEVERITY:- ABNORMAL ECG - SINUS RHYTHM LEFT ANTERIOR FASCICULAR BLOCK LEFT VENTRICULAR HYPERTROPHY : Confirmed by: Enma Eckert MD 06-Feb-2019 22:38:01
== END 2019-02-06 18:08 | disposition home or self-care (01) ==
LOC: ER 15:03
DX: E87.6 Hypokalemia (principal); R42 Dizziness and giddiness; M54.5 Low back pain; R53.1 Weakness; W18.30XA Fall on same level, unspecified, initial encounter; E78.00 Pure hypercholesterolemia, unspecified; I10 Essential (primary) hypertension; J44.9 Chronic obstructive pulmonary disease, unspecified; R73.03 Prediabetes; Z88.6 Allergy status to analgesic agent; Z85.41 Personal history of malignant neoplasm of cervix uteri; Z98.51 Tubal ligation status
CPT/HCPCS: 93005; 36415; 82553; 82550; 85025; 80053; 81001; 84484; 72131; 93010; J1885; A9270; 96374; 96376; 99284

== ENCOUNTER 2019-02-10 11:29 | Emergency (ER) | payer MEDICARE, MEDICAID ==
[2019-02-10] MEDS ORDERED: ASPIRIN 81 MG TABLET, CHEWABLE PO ONE (12:26)
--- NOTE | 2019-02-10 12:29 | ER Document Report ---
ED Medical Screen (RME) - General Chief Complaint: Back Pain Stated Complaint: BACK PAIN Time Seen by Provider: 02/10/19 12:21 Primary Care Provider: ROSLYN TOLEDO MD [Primary Care Provider] - Follow up as needed Mode of Arrival: Wheelchair Information source: Patient, Relative Notes: Very pleasant 78-year-old female with history of arthritis diabetes hypertension presents emergency department with complaints of a little bit of chest tightness and high blood pressure. Reports she has been having problems with her blood pressure for the last couple weeks. Reports she is been to several different providers her arthritis doctor and her primary care provider. Denies fever vomiting diarrhea. Reports she has a little bit of chest pain in the center of her chest. She was just evaluated here a few days ago for back pain. She was also treated for hypokalemia. I have greeted and performed a rapid initial assessment of this patient. A comprehensive ED assessment and evaluation of the patient, analysis of test results and completion of the medical decision making process will be conducted by additional ED providers. Dictation of this chart was performed using voice recognition software; therefore, there may be some unintended grammatical errors. TRAVEL OUTSIDE OF THE [place] IN LAST 30 DAYS: No - Related Data Allergies/Adverse Reactions: codeine Allergy (Verified 01/13/19 09:12) morphine [Morphine] Allergy (Verified 01/13/19 09:12) Past Medical History - Social History Chew tobacco use (# tins/day): No Frequency of alcohol use: None - Past Medical History Cardiac Medical History: Reports: Hx Hypercholesterolemia, Hx Hypertension Pulmonary Medical History: Reports: Hx COPD Neurological Medical History: Denies: Hx Seizures, Hx Parkinson's Disease Endocrine Medical History: Reports: Hx Diabetes Mellitus Type 2 - "borderline" Renal/ Medical History: Reports: Hx Ovarian Cysts. Denies: Hx Peritoneal Dialysis Malignancy Medical History: Reports: Hx Cervical Cancer - uterine cancer GI Medical History: Reports: Hx Gastroesophageal Reflux Disease Musculoskeltal Medical History: Reports Hx Arthritis - back, shoulders, and neck, Reports Hx Musculoskeletal Deformity - Chronic back pain arthritis and back shoulder or neck Psychiatric Medical History: Reports: Hx Bipolar Disorder, Hx Depression Past Surgical History: Reports: Hx Section, Hx Gynecologic Surgery, Hx Orthopedic Surgery, Hx Tubal Ligation. Denies: Hx Hysterectomy - Immunizations Immunizations up to date: Yes Hx Diphtheria, Pertussis, Tetanus Vaccination: Yes Physical Exam - Vital signs Vitals: Temp Pulse Resp BP Pulse Ox 98.5 F 96 18 164/96 H 98 02/10/19 11:34 02/10/19 11:34 02/10/19 11:34 02/10/19 11:34 02/10/19 11:34 Course - Vital Signs Vital signs: Temp Pulse Resp BP Pulse Ox 98.5 F 96 18 164/96 H 98 02/10/19 11:34 02/10/19 11:34 02/10/19 11:34 02/10/19 11:34 02/10/19 11:34 Doctor's Discharge - Discharge Referrals: ROSLYN TOLEDO MD [Primary Care Provider] - Follow up as needed
[2019-02-10] MEDS ORDERED: TRAMADOL HCL 50 MG TABLET PO ONE (12:45)
[2019-02-10] MEDS ORDERED: KETOROLAC TROMETHAMINE 60 MG/2 ML SDV IM ONE (12:46)
--- NOTE | 2019-02-10 12:46 | ER Document Report ---
ED Medical Screen (RME) - General Chief Complaint: Back Pain Stated Complaint: BACK PAIN Time Seen by Provider: 02/10/19 12:21 Primary Care Provider: ROSLYN TOLEDO MD [Primary Care Provider] - Follow up as needed Mode of Arrival: Wheelchair Information source: Patient Notes: This 78-year-old female presents emergency department with complaints of severe low back pain. Reports she has a history of fractures to her back. Reports she was here a couple days ago after she fell. CT was done no fractures were noted. She reports that she did go see her primary care provider Dr. Toledo was told that he could no longer prescribe any controlled substances. Reports she used to take Ultram for the pain. Denies fever vomiting diarrhea. Reports she cannot sleep due to the pain. Patient is very tearful. She drove herself here denies urinary incontinence. Denies fever vomiting diarrhea. I have greeted and performed a rapid initial assessment of this patient. A comprehensive ED assessment and evaluation of the patient, analysis of test results and completion of the medical decision making process will be conducted by additional ED providers. Dictation of this chart was performed using voice recognition software; therefore, there may be some unintended grammatical errors. TRAVEL OUTSIDE OF THE [place] IN LAST 30 DAYS: No - Related Data Allergies/Adverse Reactions: codeine Allergy (Verified 01/13/19 09:12) morphine [Morphine] Allergy (Verified 01/13/19 09:12) Past Medical History - Social History Chew tobacco use (# tins/day): No Frequency of alcohol use: None - Past Medical History Cardiac Medical History: Reports: Hx Hypercholesterolemia, Hx Hypertension Pulmonary Medical History: Reports: Hx COPD Neurological Medical History: Denies: Hx Seizures, Hx Parkinson's Disease Endocrine Medical History: Reports: Hx Diabetes Mellitus Type 2 - "borderline" Renal/ Medical History: Reports: Hx Ovarian Cysts. Denies: Hx Peritoneal Dialysis Malignancy Medical History: Reports: Hx Cervical Cancer - uterine cancer GI Medical History: Reports: Hx Gastroesophageal Reflux Disease Musculoskeltal Medical History: Reports Hx Arthritis - back, shoulders, and neck, Reports Hx Musculoskeletal Deformity - Chronic back pain arthritis and back shoulder or neck Psychiatric Medical History: Reports: Hx Bipolar Disorder, Hx Depression Past Surgical History: Reports: Hx Section, Hx Gynecologic Surgery, Hx Orthopedic Surgery, Hx Tubal Ligation. Denies: Hx Hysterectomy - Immunizations Immunizations up to date: Yes Hx Diphtheria, Pertussis, Tetanus Vaccination: Yes Physical Exam - Vital signs Vitals: Temp Pulse Resp BP Pulse Ox 98.5 F 96 18 164/96 H 98 02/10/19 11:34 02/10/19 11:34 02/10/19 11:34 02/10/19 11:34 02/10/19 11:34 Course - Vital Signs Vital signs: Temp Pulse Resp BP Pulse Ox 98.5 F 96 18 164/96 H 98 02/10/19 11:34 02/10/19 11:34 02/10/19 11:34 02/10/19 11:34 02/10/19 11:34 - Laboratory Result Diagrams: 02/10/19 13:22 02/10/19 13:22 Laboratory results interpreted by me: 02/10/19 02/10/19 13:22 13:22 RDW 15.1 H Potassium 3.2 L Chloride 108 H Carbon Dioxide 21 L Glucose 112 H Doctor's Discharge - Discharge Referrals: ROSLYN TOLEDO MD [Primary Care Provider] - Follow up as needed
[2019-02-10 13:35] LABS: ABSOLUTE BASOPHILS # (AUTO) 0.1 10^3/uL (0.0-0.2); ABSOLUTE EOSINOPHILS # (AUTO) 0.1 10^3/uL (0.0-0.6); ABSOLUTE LYMPHOCYTES (AUTO) 1.9 10^3/uL (0.5-4.7); ABSOLUTE MONOCYTES (AUTO) 0.6 10^3/uL (0.1-1.4); ABSOLUTE NEUT (AUTO) 7.1 10^3/uL (1.7-8.2); BASOPHILS % (AUTO) 1.1 % (0-2); EOSINOPHILS % (AUTO) 0.9 % (0-6); HEMATOCRIT 39.7 % (36.0-47.0); HEMOGLOBIN 13.3 g/dL (12.0-15.5); LYMPHOCYTES % (AUTO) 19.3 % (13-45); MEAN CORPUSCULAR HEMOGLOBIN 27.3 pg (27.0-33.4); MEAN CORPUSCULAR HGB CONC 33.4 g/dL (32.0-36.0); MEAN CORPUSCULAR VOLUME 82 fl (80-97); MONOCYTES % (AUTO) 5.8 % (3-13); PLATELET COUNT 400 10^3/uL (150-450); RED BLOOD COUNT 4.87 10^6/uL (3.72-5.28); RED CELL DISTRIBUTION WIDTH 15.1 % (11.5-14.0); SEGMENTED NEUTROPHILS % (AUTO) 72.9 % (42-78); TOTAL CELLS COUNTED % (AUTO) 100 %; WHITE BLOOD COUNT 9.8 10^3/uL (4.0-10.5)
[2019-02-10 13:48] LABS: ALBUMIN 4.5 g/dL (3.5-5.0); ALKALINE PHOSPHATASE 75 U/L (38-126); ANION GAP 12 (5-19); ASPARTATE AMINO TRANSFERASE 25 U/L (14-36); BILIRUBIN,DIRECT 0.1 mg/dL (0.0-0.4); BILIRUBIN,TOTAL 0.4 mg/dL (0.2-1.3); BLOOD UREA NITROGEN 9 mg/dL (7-20); CALCIUM 10.1 mg/dL (8.4-10.2); CARBON DIOXIDE 21 mmol/L (22-30); CHLORIDE 108 mmol/L (98-107); GLUCOSE 112 mg/dL (75-110); POTASSIUM 3.2 mmol/L (3.6-5.0); TOTAL PROTEIN 8.2 g/dL (6.3-8.2)
--- NOTE | 2019-02-10 15:08 | ER Document Report ---
ED General - General Chief Complaint: Back Pain Stated Complaint: BACK PAIN Time Seen by Provider: 02/10/19 12:21 Primary Care Provider: ROSLYN TOLEDO MD [Primary Care Provider] - Follow up as needed Mode of Arrival: Wheelchair TRAVEL OUTSIDE OF THE [place] IN LAST 30 DAYS: No - Related Data Allergies/Adverse Reactions: codeine Allergy (Verified 01/13/19 09:12) morphine [Morphine] Allergy (Verified 01/13/19 09:12) Past Medical History - General Information source: Patient - Social History Smoking Status: Never Smoker Chew tobacco use (# tins/day): No Frequency of alcohol use: None Family History: Reviewed & Not Pertinent Patient has suicidal ideation: No Patient has homicidal ideation: No - Past Medical History Cardiac Medical History: Reports: Hx Hypercholesterolemia, Hx Hypertension Pulmonary Medical History: Reports: Hx COPD Neurological Medical History: Denies: Hx Seizures, Hx Parkinson's Disease Endocrine Medical History: Reports: Hx Diabetes Mellitus Type 2 - "borderline" Renal/ Medical History: Reports: Hx Ovarian Cysts. Denies: Hx Peritoneal Dialysis Malignancy Medical History: Reports: Hx Cervical Cancer - uterine cancer GI Medical History: Reports: Hx Gastroesophageal Reflux Disease Musculoskeletal Medical History: Reports Hx Arthritis - back, shoulders, and neck, Reports Hx Musculoskeletal Deformity - Chronic back pain arthritis and back shoulder or neck Psychiatric Medical History: Reports: Hx Bipolar Disorder, Hx Depression Past Surgical History: Reports: Hx Section, Hx Gynecologic Surgery, Hx Orthopedic Surgery, Hx Tubal Ligation. Denies: Hx Hysterectomy - Immunizations Immunizations up to date: Yes Hx Diphtheria, Pertussis, Tetanus Vaccination: Yes Hx Pneumococcal Vaccination: 02/01/13 Physical Exam - Vital signs Vitals: Temp Pulse Resp BP Pulse Ox 98.5 F 96 18 164/96 H 98 02/10/19 11:34 02/10/19 11:34 02/10/19 11:34 02/10/19 11:34 02/10/19 11:34 - Notes Notes: PHYSICAL EXAMINATION: reviewed vital signs by RN GENERAL: Well-appearing, well-nourished and in no acute distress. HEAD: Atraumatic, normocephalic. EYES: Pupils equal round and reactive to light, extraocular movements intact, conjunctiva are normal. ENT: Nares patent, oropharynx clear without exudates. Moist mucous membranes. NECK: Normal range of motion, supple without lymphadenopathy LUNGS: Breath sounds clear to auscultation bilaterally and equal. No wheezes rales or rhonchi. HEART: Regular rate and rhythm without murmurs ABDOMEN: Soft, nontender, nondistended abdomen. No guarding, no rebound. No masses appreciated. Musculoskeletal: Normal range of motion, no pitting or edema. No cyanosis.Pain with flexion and extension at 30 degrees, positive straight leg test. Normal hip rotation. DTR +2 in BLE equally. Strength 5 out of 5 both distally and proximally to bilateral lower extremities normal motor and sensory function in BLE equally. Distal pulses + 2 BLE equally. Noted paraspinal tenderness near L2 and L4. Strength 5 out of 5 in bilateral lower extremities equally. no spinal tenderness. No CVA tenderness bilaterally. Femoral pulses + 2 bilaterally and equally. No abrasions, scars, lacerations, ecchymosis of any recent trauma. normal gait. NEUROLOGICAL: Cranial nerves grossly intact. Normal speech, normal gait. Normal sensory, motor exams PSYCH: Normal mood, normal affect. SKIN: Warm, Dry, normal turgor, no rashes or lesions noted. Course - Re-evaluation Re-evalutation: 02/10/19 18:38 Afebrile vital stable no distress. Nurse's notes reviewed. Lumbar spine negative for any acute fracture, dislocation or bone lesions, patient did have a CT of her lower back recently which was negative for fracture, patient does have degenerative joint disease. Patient states that Dr. Toledo, her primary care provider, will not prescribe her pain medications anymore, did not give a reason why he will not prescribe for her anymore. Patient states that she takes tramadol 50 mg as needed for pain. pt given 40mg of potassium chloride for a potassium of 3.2, which is a chronic issues for this patient. Urinalysis negative for leukoesterase, hematuria, negative nitrates. Patient given presc ription for tramadol as well as a referral to pain management for her chronic back pain related to degenerative joint disease. Patient verbalized understanding of this plan of care and agree with plan of care. No focal neurological deficits noted on examination. After performing a Medical Screeni ng Examination, I estimate there is LOW risk for EXPANDING OR RUPTURED ABDOMINAL AORTIC ANEURYSM, CAUDA EQUINA SYNDROME, EPIDURAL MASS ABSCESS OR LESION(S), OSTEOMYELITIS,PERSONAL HISTORY OF CANCER, IMMUNOSUPPERSSSION, HISTORY OF IV DRUG USE, FRACTURE, CORD COMPERSSION, CANCER, RETROPERITONEAL BLEED, SPINAL EPIDURAL HEMATOMA, or HERNIATED DISK CAUSING SEVERE SPINAL STENOSIS, thus I consider the discharge disposition reasonable. I have reevaluated this patient multiple times and no significant life threatening changes are noted. The patient and I have discussed the diagnosis and risks, and we agree with discharging home and close follow-up. We also discussed returning to the Emergency Department immediately if new or worsening symptoms occur with the understanding that symptoms and presentations can change. We have discussed the symptoms which are most concerning (e.g., saddle anesthesia, urinary or bowel incontinence or retention, changing or worsening pain) that necessitate immediate return. - Vital Signs Vital signs: Temp Pulse Resp BP Pulse Ox 98.5 F 96 18 164/96 H 98 02/10/19 11:34 02/10/19 11:34 02/10/19 11:34 02/10/19 11:34 02/10/19 11:34 - Laboratory Result Diagrams: 02/10/19 13:22 02/10/19 13:22 Laboratory results interpreted by me: 02/10/19 02/10/19 13:22 13:22 RDW 15.1 H Potassium 3.2 L Chloride 108 H Carbon Dioxide 21 L Glucose 112 H Discharge - Discharge Clinical Impression: Hypokalemia Lower back pain Qualifiers: Chronicity: unspecified Back pain laterality: unspecified Condition: Stable Disposition: HOME, SELF-CARE Instructions: Pain Medication Injection ([facility]), Low Back Pain ([facility]), Ultram ([facility]), Chronic Back Pain ([facility]), Stretching Exercises for the Back ([facility]) Additional Instructions: X-ray of your back today was negative urinalysis was normal. You are given pain medications in the emergency room, it is advised that if you do require pain medication on a longer basis then for 4 days to see your primary care provider if you do require pain management for longer than that to have a referral to pain management Prescriptions: Tramadol HCl [Ultram 50 mg Tablet] 50 mg PO Q4HP PRN #12 tab PRN Reason: Referrals: ROSLYN TOLEDO MD [Primary Care Provider] - Follow up as needed GINA CAMPA JR, DO [ACTIVE PROVISIONAL STAFF] - Follow up as needed NADEEM GRAMAJO MD [ACTIVE STAFF] - Follow up as needed
[2019-02-10] MEDS ORDERED: POTASSIUM CHLORIDE 10 MEQ CAPSULE.ER PO ONE (16:02)
[2019-02-10 17:04] LABS: APPEARANCE,URINE CLEAR; BILIRUBIN,URINE NEGATIVE (NEGATIVE); COLOR,URINE COLORLESS; GLUCOSE, URINE NEGATIVE (NEGATIVE); KETONES,URINE NEGATIVE (NEGATIVE); LEUKOCYTE ESTERASE,URINE NEGATIVE (NEGATIVE); NITRITE,URINE NEGATIVE (NEGATIVE); PROTEIN,URINE NEGATIVE (NEGATIVE); URINE SPECIFIC GRAVITY 1.006; UROBILINOGEN,URINE NEGATIVE mg/dL (<2.0)
--- NOTE | 2019-02-10 17:28 | RADIOLOGY REPORT (SQ) ---
EXAM DESCRIPTION: L SPINE WHOLE COMPLETED DATE/TIME: 02/10/2019 4:51 pm REASON FOR STUDY: suspects she has a lumbar fx from fall COMPARISON: 11/13/2018. NUMBER OF VIEWS: Five views including obliques. TECHNIQUE: AP, lateral, oblique, and sacral radiographic images acquired of the lumbar spine. LIMITATIONS: None. FINDINGS: MINERALIZATION: Osteopenia. SEGMENTATION: There are 5 lumbar-type vertebral bodies. There is no transition anatomy at the lumbos acral junction. ALIGNMENT: Unchanged levoconvex curvature of the lumbar spine centered at L2 and grade 1 anterolisthe sis of L5 relative to S1 and grade 1 retrolisthesis of L1 relative to L2 and L2 relative to L3. VERTEBRAE: Chronic unchanged fracture deformity of the T11 vertebral body. The lumbar vertebral body heights are preserved. There is no fracture. DISCS: The L1-L2, and L2-L3 intervertebral disc spaces are narrowed and there is associated endplate sclerosis and osteophyte formation. POSTERIOR ELEMENTS: Intact. There is no pars interarticularis defect, however there is hypertrophy a nd degeneration of the 5th set joints throughout the lumbar spine. HARDWARE: None in the spine. PARASPINAL SOFT TISSUES: Vascular calcification of the abdominal aorta and probable right lower pole calculus. PELVIS: Intact. OTHER: No other finding. 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 There is no acute fracture. TECHNICAL DOCUMENTATION: JOB ID: [id number] [employer]- All Rights Reserved Reading location - IP/workstation name: [email or web address]
[2019-02-10 18:07] VITALS: BP 161/93
== END 2019-02-10 18:05 | disposition home or self-care (01) ==
LOC: ER 11:29
DX: M54.5 Low back pain (principal); E87.6 Hypokalemia; I10 Essential (primary) hypertension; J44.9 Chronic obstructive pulmonary disease, unspecified; Z88.5 Allergy status to narcotic agent
CPT/HCPCS: 36415; 85025; 80053; 81001; 72110; J1885; A9270

== ENCOUNTER 2019-05-18 11:46 | Inpatient (IN) | payer MEDICARE, MEDICAID ==
[2019-05-18 13:23] LABS: HEMATOCRIT 35.6 % (36.0-47.0); HEMOGLOBIN 11.9 g/dL (12.0-15.5); MEAN CORPUSCULAR HEMOGLOBIN 26.7 pg (27.0-33.4); MEAN CORPUSCULAR HGB CONC 33.3 g/dL (32.0-36.0); MEAN CORPUSCULAR VOLUME 80 fl (80-97); PLATELET COUNT 353 10^3/uL (150-450); RED BLOOD COUNT 4.45 10^6/uL (3.72-5.28); RED CELL DISTRIBUTION WIDTH 15.8 % (11.5-14.0); WHITE BLOOD COUNT 10.1 10^3/uL (4.0-10.5)
[2019-05-18 13:42] LABS: ALBUMIN 3.8 g/dL (3.5-5.0); ALKALINE PHOSPHATASE 66 U/L (38-126); ANION GAP 12 (5-19); ASPARTATE AMINO TRANSFERASE 22 U/L (14-36); BILIRUBIN,DIRECT 0.3 mg/dL (0.0-0.4); BILIRUBIN,TOTAL 0.3 mg/dL (0.2-1.3); BLOOD UREA NITROGEN 13 mg/dL (7-20); CALCIUM 9.5 mg/dL (8.4-10.2); CARBON DIOXIDE 22 mmol/L (22-30); CHLORIDE 105 mmol/L (98-107); CREATINE KINASE 58 U/L (30-135); GLUCOSE 119 mg/dL (75-110); TOTAL PROTEIN 7.1 g/dL (6.3-8.2)
[2019-05-18 13:52] LABS: CREATINE KINASE MB 1.72 ng/mL (<4.55); NT PRO BNP 255 pg/mL (<450)
[2019-05-18 13:57] LABS: TROPONIN I < 0.012 ng/mL
[2019-05-18 13:58] LABS: FREE T4 (FREE THYROXINE) 1.29 ng/dL (0.78-2.19)
[2019-05-18 14:11] LABS: THYROID STIMULATING HORMONE 4.3 uIU/mL (0.47-4.68)
[2019-05-18] MEDS: NORMAL SALINE 250 ML with FUROSEMIDE 250 MG IV PRN ×2 (14:23)
[2019-05-18 16:19] LABS: APPEARANCE,URINE CLEAR; BILIRUBIN,URINE NEGATIVE (NEGATIVE); COLOR,URINE STRAW; GLUCOSE, URINE 50 mg/dL (NEGATIVE); KETONES,URINE NEGATIVE (NEGATIVE); LEUKOCYTE ESTERASE,URINE NEGATIVE (NEGATIVE); NITRITE,URINE NEGATIVE (NEGATIVE); PROTEIN,URINE NEGATIVE (NEGATIVE); URINE SPECIFIC GRAVITY 1.004; UROBILINOGEN,URINE NEGATIVE mg/dL (<2.0)
[2019-05-18] MEDS: OXYCODONE HCL IR 5 MG TABLET PO PRN ×2 (16:40→23:16)
--- NOTE | 2019-05-18 18:07 | PDOC H&P ---
History of Present Illness Admission Date/PCP: 05/18/19 11:46 ROSLYN TOLEDO MD History of Present Illness: ALANA ROMERO is a 78 year old female, She came to the office for evaluation of lower extremity edema, she was in the wheelchair she said she could not walk she was requesting to be admitted to the hospital she says she does not know what the problem was, she was very hysterical. In the office she was evaluated, my immediate concern was the need to rule out congestive heart failure, she denies any chest pain but she admitted to having shortness of breath. She was admitted directly from the office to the hospital, the initial BMP was normal which suggests that she probably does not have CHF. Chest x-ray was clear there was no pulmonary edema, 2D echo was done, it showed preserved ejection fraction of left ventricle there was Pseudonormalization of E/A ratio that suggest grade 2 diastolic dysfunction of left ventricle.The urine protein creatinine ratio was 1.8 Past Medical History Cardiac Medical History: Reports: Hyperlipidema, Hypertension Pulmonary Medical History: Reports: Chronic Obstructive Pulmonary Disease (COPD) Neurological Medical History: Denies: Seizures Endocrine Medical History: Reports: Diabetes Mellitus Type 2 - "borderline" Malignancy Medical History: Reports: Cervical Cancer - uterine cancer GI Medical History: Reports: Gastroesophageal Reflux Disease Musculoskeltal Medical History: Reports: Arthritis - back, shoulders, and neck Psychiatric Medical History: Reports: Bipolar Disorder, Depression Past Surgical History Past Surgical History: Reports: Section, Orthopedic Surgery, Tubal Ligation Social History Smoking Status: Never Smoker Electronic Cigarette use?: No Frequency of Alcohol Use: None Hx Recreational Drug Use: No Drugs: None Hx Prescription Drug Abuse: No Family History Family History: Reviewed & Not Pertinent Parental Family History Reviewed: Yes Children Family History Reviewed: Yes Sibling(s) Family History Reviewed.: Yes Medication/Allergy Home Medications: RX: Megestrol Acetate 400 mg PO BID 01/13/19 RX: Pramipexole Di-HCl [Pramipexole Dihydrochloride] 0.5 mg PO Q12 01/13/19 RX: Pantoprazole Sodium [Protonix [address] Tablet] 40 mg PO DAILY #90 tablet.dr 01/19/19 Buprenorphine [Butrans] 1 patch TOP .QWEEKLY MDD CANT REMEMBER WHAT DAY 01/15/20 Mirtazapine 45 mg PO QAM 05/18/19 RX: Tramadol HCl [Ultram 50 mg Tablet] 50 mg PO Q8HP PRN 05/18/19 Allergies/Adverse Reactions: No Known Allergies Allergy (Unverified 05/18/19 16:11) Review of Systems Constitutional: ABSENT: chills, fever(s), headache(s), weight gain, weight loss Eyes: ABSENT: visual disturbances Ears: ABSENT: hearing changes Cardiovascular: PRESENT: edema. ABSENT: chest pain, dyspnea on exertion, orthropnea, palpitations Respiratory: ABSENT: cough, hemoptysis Gastrointestinal: ABSENT: abdominal pain, constipation, diarrhea, hematemesis, hematochezia, nausea, vomiting Genitourinary: ABSENT: dysuria, hematuria Musculoskeletal: ABSENT: joint swelling Integumentary: ABSENT: rash, wounds Neurological: ABSENT: abnormal gait, abnormal speech, confusion, dizziness, focal weakness, syncope Psychiatric: ABSENT: anxiety, depression, homidical ideation, suicidal ideation Endocrine: ABSENT: cold intolerance, heat intolerance, menstrual abnormalities, polydipsia, polyuria Hematologic/Lymphatic: ABSENT: easy bleeding, easy bruising, lymphadenopathy Physical Exam Vital Signs: Temp Pulse Resp BP Pulse Ox 97.9 F 92 20 155/80 H 100 05/18/19 13:19 05/18/19 13:19 05/18/19 13:19 05/18/19 13:19 05/18/19 13:19 Intake & Output 05/17/19 05/18/19 05/19/19 06:59 06:59 06:59 Weight 79 kg General appearance: PRESENT: no acute distress Head exam: PRESENT: atraumatic, normocephalic Eye exam: PRESENT: PERRLA Ear exam: PRESENT: normal external ear exam Neck exam: PRESENT: full ROM Respiratory exam: PRESENT: clear to auscultation isak Cardiovascular exam: PRESENT: RRR, +S1, +S2 Vascular exam: PRESENT: normal capillary refill GI/Abdominal exam: PRESENT: normal bowel sounds, soft Rectal exam: PRESENT: deferred Extremities exam: PRESENT: pedal edema Neurological exam: PRESENT: alert, awake, oriented to person, oriented to place, CN II-XII grossly intact Psychiatric exam: PRESENT: appropriate affect, normal mood Skin exam: PRESENT: dry, intact, warm Results Laboratory Results: 05/18/19 12:58 05/18/19 12:58 05/18/19 05/18/19 05/18/19 12:58 12:58 12:58 WBC 10.1 RBC 4.45 Hgb 11.9 L Hct 35.6 L MCV 80 MCH 26.7 L MCHC 33.3 RDW 15.8 H Plt Count 353 Sodium 139.2 Potassium 4.0 Chloride 105 Carbon Dioxide 22 Anion Gap 12 BUN 13 Creatinine 0.57 Est GFR ( Amer) > 60 Glucose 119 H Calcium 9.5 Total Bilirubin 0.3 AST 22 Alkaline Phosphatase 66 Total Protein 7.1 Albumin 3.8 TSH 4.30 Free T4 1.29 Urine Color Urine Appearance Urine pH Ur Specific Bixby Urine Protein Urine Glucose (UA) Urine Ketones Urine Blood Urine Nitrite Ur Leukocyte Esterase Urine WBC (Auto) Urine RBC (Auto) 05/18/19 15:35 WBC RBC Hgb Hct MCV MCH MCHC RDW Plt Count Sodium Potassium Chloride Carbon Dioxide Anion Gap BUN Creatinine Est GFR ( Amer) Glucose Calcium Total Bilirubin AST Alkaline Phosphatase Total Protein Albumin TSH Free T4 Urine Color STRAW Urine Appearance CLEAR Urine pH 7.0 Ur Specific Bixby 1.004 Urine Protein NEGATIVE Urine Glucose (UA) 50 H Urine Ketones NEGATIVE Urine Blood NEGATIVE Urine Nitrite NEGATIVE Ur Leukocyte Esterase NEGATIVE Urine WBC (Auto) 0 Urine RBC (Auto) 0 05/18/19 05/18/19 12:58 12:58 Creatine Kinase 58 CK-MB (CK-2) 1.72 Troponin I < 0.012 NT-Pro-B Natriuret Pep 255 Assessment & Plan - Diagnosis (1) Bilateral lower extremity edema Is this a current diagnosis for this admission?: Yes Plan: The differential diagnosis include, congestive heart failure, nephrotic syndrome, medication, pulmonary hypertension. The 2D echo demonstrated normal systolic function there was suggestion of grade 2 diastolic dysfunction but the BNP was normal suggesting that this is not diastolic heart failure, the urine protein creatinine ratio is 1.8 suggesting that there is no nephrotic syndrome,The pulmonary pressure was normal, no pulmonary hypertension. Treat with Lasix drip
[2019-05-18] MEDS ORDERED: TRAMADOL HCL 50 MG TABLET PO PRN (18:19)
[2019-05-18] MEDS ORDERED: PRAMIPEXOLE DI HCL 0.5 MG PO SCH (18:30)
[2019-05-18] MEDS ORDERED: (PENDING PHARMACY ID) (Mirtazapine [Mirtazapine] 45 MG) PO SCH (18:30)
[2019-05-18] MEDS ORDERED: (PENDING PHARMACY ID) (Buprenorphine [Butrans] 1 PATCH) TOP SCH (18:30)
[2019-05-18] MEDS: PANTOPRAZOLE SODIUM 40 MG TABLET.DR PO SCH (19:42)
[2019-05-18] MEDS ORDERED: CYCLOBENZAPRINE HCL 10 MG TABLET PO ONE (20:00)
[2019-05-18 21:04] LABS: CREATINE KINASE MB 1.31 ng/mL (<4.55)
[2019-05-18 21:08] LABS: TROPONIN I < 0.012 ng/mL
--- NOTE | 2019-05-18 21:35 | RADIOLOGY REPORT (SQ) ---
XR CHEST 1 VIEW EXAM DATE: 05/18/2019 12:00 AM SUPERVISOR CRACK OFF HISTORY: Acute heart failure. COMPARISON: None. FINDINGS: Normal heart size without pulmonary edema. The lungs are clear. No pleural effusions or pneumothorax. No acute bony findings are seen. IMPRESSION: No evidence of acute cardiopulmonary disease.
[2019-05-18] MEDS: PRAMIPEXOLE DI-HCL 0.5 MG TABLET PO SCH (22:24)
[2019-05-18 22:53] LABS: UR PRO/CREAT RATIO RESULT 1.8 mg/mg (0.0-0.2); URINE CREATININE 8.5 mg/dL (15-278); URINE PROTEIN 14.9 mg/dL (<12)
--- NOTE | 2019-05-19 00:26 | XCELERA REPORT ---
[address] [address] Transthoracic Echocardiogram Report Name: ALANA ROMERO Age: 78 yrs Gender: Female : 1940 Patient Status: Inpatient Patient Location: [address] [place] [address] Study Date: 05/18/2019 05:10 PM Height: 62 in Weight: 165 lb BSA: 1.8 m2 Procedure: A two-dimensional transthoracic echocardiogram with color flow and Doppler was performed. The study was technically difficult with many images being suboptimal in quality. Reason For Study: acute CHF History: CHF. Ordering Physician: ROSLYN TOLEDO Performed By: Oma Napoles Interpretation Summary The left ventricle is normal in size. There is normal left ventricular wall thickness. LV EF is 65% Left ventricular systolic function is normal. Doppler measurements suggest pseudonormalized left ventricular relaxation, which is associated with grade II/IV or mild to moderate diastolic dysfunction The left ventricular wall motion is normal. There is no thrombus. Probably no ASD,VSD,or PFO seen. The right ventricle is normal in size and function. The right ventricle is not well visualized secondary to technical limitations The right atrium is normal. The left atrial size is normal. There is mild mitral annular calcification. There is no evidence of mitral valve prolapse. There is no vegetation seen on the mitral valve. There is no mitral valve stenosis. There is no mitral regurgitation noted. There is no aortic valvular vegetation. There is no aortic valve stenosis There is aortic sclerosis without aortic stenosis. There is no LVOT obstruction. No aortic regurgitation is present. There is no tricuspid stenosis. There is a trace amount of tricuspid regurgitation There is mild pulmonary hypertension by echo RVSP is 38 mm of Hg , with RA mean of 10. There is no pulmonic valvular stenosis. There is no pulmonic valvular regurgitation. The aortic root is normal size. The inferior vena cava was not visualized There is no pericardial effusion. MMode/2D Measurements & Calculations RVDd: 2.3 cm LVIDd: 3.3 cm FS: 36.1 % Ao root diam: 2.9 cm IVSd: 1.2 cm LVIDs: 2.1 cm EDV(Teich): 45.1 ml Ao root area: 6.8 cm2 LVPWd: 0.88 cm ESV(Teich): 14.9 ml LA dimension: 3.3 cm EF(Teich): 67.0 % Doppler Measurements & Calculations MV E max luis e: MV P1/2t max luis e: Ao V2 max: LV V1 max P.9 cm/sec 82.5 cm/sec 130.3 cm/sec 5.1 mmHg MV A max luis e: MV P1/2t: 71.2 msec Ao max P.8 mmHgLV V1 max: 139.7 cm/sec MVA(P1/2t): 3.1 cm2 113.0 cm/sec MV E/A: 0.63 MV dec slope: 339.7 cm/sec2 MV dec time: 0.19 sec PA V2 max: TR max luis e: MV P1/2t-pr_phl: 85.8 cm/sec 266.0 cm/sec 71.2 msec PA max P.9 mmHgTR max P.3 mmHg Left Ventricle The left ventricle is normal in size. There is normal left ventricular wall thickness. LV EF is 65%. Left ventricular systolic function is normal. Doppler measurements suggest pseudonormalized left ventricular relaxation, which is associated with grade II/IV or mild to moderate diastolic dysfunction. The left ventricular wall motion is normal. There is no thrombus. Probably no ASD,VSD,or PFO seen. Right Ventricle The right ventricle is normal in size and function. The right ventricle is not well visualized secondary to technical limitations. Atria The right atrium is normal. The left atrial size is normal. Mitral Valve There is mild mitral annular calcification. There is no evidence of mitral valve prolapse. There is no vegetation seen on the mitral valve. There is no mitral valve stenosis. There is no mitral regurgitation noted. Aortic Valve There is no aortic valvular vegetation. There is no aortic valve stenosis. There is aortic sclerosis without aortic stenosis. There is no LVOT obstruction. No aortic regurgitation is present. Tricuspid Valve There is no tricuspid stenosis. There is a trace amount of tricuspid regurgitation. There is mild pulmonary hypertension by echo. RVSP is 38 mm of Hg , with RA mean of 10. Pulmonic Valve There is no pulmonic valvular stenosis. There is no pulmonic valvular regurgitation. Great Vessels The aortic root is normal size. The inferior vena cava was not visualized. Effusions There is no pericardial effusion. : ROSLYN TOLEDO Lakshmi
--- NOTE | 2019-05-19 01:01 | EKG REPORT ---
SEVERITY:- ABNORMAL ECG - SINUS RHYTHM LEFT VENTRICULAR HYPERTROPHY : Confirmed by: Enma Eckert MD 19-May-2019 00:59:49
[2019-05-19 03:40] LABS: CREATINE KINASE MB 1.24 ng/mL (<4.55)
[2019-05-19 03:50] LABS: TROPONIN I < 0.012 ng/mL
[2019-05-19] MEDS: OXYCODONE HCL IR 5 MG TABLET PO PRN ×3 (05:42→20:04)
[2019-05-19] MEDS: PANTOPRAZOLE SODIUM 40 MG TABLET.DR PO SCH (09:06)
[2019-05-19] MEDS: BUTALB/ACETAMINOPHEN/CAFFEINE 1 TAB EACH PO PRN (09:06)
[2019-05-19] MEDS: MIRTAZAPINE 15 MG TABLET PO SCH (09:07)
[2019-05-19] MEDS: PRAMIPEXOLE DI-HCL 0.5 MG TABLET PO SCH ×2 (09:07→23:06)
[2019-05-19] MEDS: NORMAL SALINE 250 ML with FUROSEMIDE 250 MG IV PRN ×2 (15:30)
[2019-05-19 21:07] LABS: ALKALINE PHOSPHATASE 67 U/L (38-126); ANION GAP 12 (5-19); ASPARTATE AMINO TRANSFERASE 27 U/L (14-36); BILIRUBIN,DIRECT 0.4 mg/dL (0.0-0.4); BILIRUBIN,TOTAL 0.4 mg/dL (0.2-1.3); BLOOD UREA NITROGEN 18 mg/dL (7-20); CALCIUM 9.2 mg/dL (8.4-10.2); CARBON DIOXIDE 28 mmol/L (22-30); CHLORIDE 93 mmol/L (98-107); GLUCOSE 305 mg/dL (75-110); POTASSIUM 4.2 mmol/L (3.6-5.0); TOTAL PROTEIN 7.4 g/dL (6.3-8.2)
[2019-05-20] MEDS: OXYCODONE HCL IR 5 MG TABLET PO PRN ×4 (02:33→22:21)
[2019-05-20] MEDS: MIRTAZAPINE 15 MG TABLET PO SCH (08:11)
[2019-05-20] MEDS: PRAMIPEXOLE DI-HCL 0.5 MG TABLET PO SCH ×2 (09:25→22:22)
[2019-05-20] MEDS: DOCUSATE SODIUM 100 MG CAPSULE PO SCH ×2 (09:25→17:41)
[2019-05-20] MEDS: PANTOPRAZOLE SODIUM 40 MG TABLET.DR PO SCH (09:25)
[2019-05-20] MEDS: NORMAL SALINE 250 ML with FUROSEMIDE 250 MG IV PRN ×2 (14:34)
[2019-05-20] MEDS: BUTALB/ACETAMINOPHEN/CAFFEINE 1 TAB EACH PO PRN (15:39)
[2019-05-20] MEDS ORDERED: GLUCAGON,HUMAN RECOMB 1 MG INJ IM PRN (19:53)
[2019-05-20] MEDS ORDERED: DEXTROSE 40% GEL 15 GM TUBE PO PRN ×2 (19:53)
[2019-05-20] MEDS ORDERED: DEXTROSE 50%-WATER 25 GM/50 ML DISP.SYRIN IV PRN ×2 (19:53)
--- NOTE | 2019-05-20 19:58 | PDOC PROGRESS REPORT ---
Subjective Progress Note for:: 05/20/19 Subjective:: Patient seen by the bedside, she has not been consistently taking medication for the control of diabetes, the blood sugar is in quite high she continues to slowly improve Reason For Visit: ACUTE CHF Physical Exam Vital Signs: Temp Pulse Resp BP Pulse Ox 97.3 F 95 18 134/65 H 98 05/20/19 16:21 05/20/19 16:21 05/20/19 16:21 05/20/19 16:21 05/20/19 16:21 Intake & Output 05/19/19 05/20/19 05/21/19 06:59 06:59 06:59 Intake Total 1788 1545 1191 Output Total 2750 1250 200 Balance -962 295 991 Weight 71.2 kg 77.3 kg General appearance: PRESENT: no acute distress Eye exam: PRESENT: PERRLA Respiratory exam: PRESENT: clear to auscultation isak Cardiovascular exam: PRESENT: +S1, +S2 Neurological exam: PRESENT: alert Results Laboratory Results: 05/18/19 12:58 05/19/19 20:32 05/19/19 20:32 Sodium 132.9 L Potassium 4.2 Chloride 93 L Carbon Dioxide 28 Anion Gap 12 BUN 18 Creatinine 0.69 Est GFR ( Amer) > 60 Glucose 305 H Calcium 9.2 Total Bilirubin 0.4 AST 27 Alkaline Phosphatase 67 Total Protein 7.4 Albumin 4.0 05/18/19 05/18/19 05/18/19 12:58 12:58 20:25 Creatine Kinase 58 48 CK-MB (CK-2) 1.72 Troponin I < 0.012 NT-Pro-B Natriuret Pep 255 05/18/19 05/19/19 05/19/19 20:25 02:52 02:52 Creatine Kinase 56 CK-MB (CK-2) 1.31 1.24 Troponin I < 0.012 < 0.012 NT-Pro-B Natriuret Pep Impressions: Chest X-Ray 05/18/19 00:00 IMPRESSION: No evidence of acute cardiopulmonary disease. Assessment & Plan - Diagnosis (1) Bilateral lower extremity edema Is this a current diagnosis for this admission?: Yes (2) T2DM (type 2 diabetes mellitus) Qualifiers: Diabetes mellitus halfway insulin use: without halfway use Diabetes mellitus complication status: without complication Qualified Code(s): E11.9 - Type 2 diabetes mellitus without complications Is this a current diagnosis for this admission?: Yes Plan: Start [place] - Time Time Spent with patient: 15-24 minutes
[2019-05-20] MEDS ORDERED: SITAGLIPTIN PHOSPHATE 50 MG TABLET PO SCH (20:00)
[2019-05-20 20:32] LABS: ABSOLUTE BASOPHILS # (AUTO) 0.1 10^3/uL (0.0-0.2); ABSOLUTE EOSINOPHILS # (AUTO) 0.1 10^3/uL (0.0-0.6); ABSOLUTE LYMPHOCYTES (AUTO) 1.8 10^3/uL (0.5-4.7); ABSOLUTE MONOCYTES (AUTO) 0.8 10^3/uL (0.1-1.4); ABSOLUTE NEUT (AUTO) 8.1 10^3/uL (1.7-8.2); EOSINOPHILS % (AUTO) 1.2 % (0-6); HEMATOCRIT 33.2 % (36.0-47.0); HEMOGLOBIN 11.1 g/dL (12.0-15.5); LYMPHOCYTES % (AUTO) 16.8 % (13-45); MEAN CORPUSCULAR HEMOGLOBIN 26.4 pg (27.0-33.4); MEAN CORPUSCULAR HGB CONC 33.6 g/dL (32.0-36.0); MEAN CORPUSCULAR VOLUME 79 fl (80-97); PLATELET COUNT 386 10^3/uL (150-450); RED BLOOD COUNT 4.22 10^6/uL (3.72-5.28); RED CELL DISTRIBUTION WIDTH 15.2 % (11.5-14.0); TOTAL CELLS COUNTED % (AUTO) 100 %; WHITE BLOOD COUNT 10.9 10^3/uL (4.0-10.5)
[2019-05-20 20:55] LABS: ALBUMIN 3.4 g/dL (3.5-5.0); ALKALINE PHOSPHATASE 65 U/L (38-126); ANION GAP 7 (5-19); ASPARTATE AMINO TRANSFERASE 18 U/L (14-36); BILIRUBIN,DIRECT 0.2 mg/dL (0.0-0.4); BILIRUBIN,TOTAL 0.2 mg/dL (0.2-1.3); BLOOD UREA NITROGEN 18 mg/dL (7-20); CALCIUM 9.2 mg/dL (8.4-10.2); CARBON DIOXIDE 29 mmol/L (22-30); CHLORIDE 96 mmol/L (98-107); GLUCOSE 301 mg/dL (75-110); POTASSIUM 4.3 mmol/L (3.6-5.0); TOTAL PROTEIN 6.3 g/dL (6.3-8.2)
[2019-05-20] MEDS: INSULIN LISPRO 100 UNIT/ML 3 ML VIAL SUBCUT SCH (22:22)
[2019-05-20] MEDS ORDERED: SITAGLIPTIN PHOSPHATE 50 MG TABLET PO ONE (22:30)
[2019-05-21 06:00] LABS: ABSOLUTE BASOPHILS # (AUTO) 0.1 10^3/uL (0.0-0.2); ABSOLUTE EOSINOPHILS # (AUTO) 0.2 10^3/uL (0.0-0.6); ABSOLUTE MONOCYTES (AUTO) 0.9 10^3/uL (0.1-1.4); ABSOLUTE NEUT (AUTO) 7.5 10^3/uL (1.7-8.2); BASOPHILS % (AUTO) 0.6 % (0-2); EOSINOPHILS % (AUTO) 1.5 % (0-6); HEMATOCRIT 35.7 % (36.0-47.0); LYMPHOCYTES % (AUTO) 18.8 % (13-45); MEAN CORPUSCULAR HEMOGLOBIN 26.5 pg (27.0-33.4); MEAN CORPUSCULAR HGB CONC 33.5 g/dL (32.0-36.0); MEAN CORPUSCULAR VOLUME 79 fl (80-97); MONOCYTES % (AUTO) 8.6 % (3-13); PLATELET COUNT 366 10^3/uL (150-450); RED BLOOD COUNT 4.52 10^6/uL (3.72-5.28); RED CELL DISTRIBUTION WIDTH 15.6 % (11.5-14.0); SEGMENTED NEUTROPHILS % (AUTO) 70.5 % (42-78); TOTAL CELLS COUNTED % (AUTO) 100 %; WHITE BLOOD COUNT 10.6 10^3/uL (4.0-10.5)
[2019-05-21] MEDS: OXYCODONE HCL IR 5 MG TABLET PO PRN ×3 (06:10→21:03)
[2019-05-21 06:25] LABS: ALBUMIN 3.6 g/dL (3.5-5.0); ALKALINE PHOSPHATASE 65 U/L (38-126); ANION GAP 11 (5-19); ASPARTATE AMINO TRANSFERASE 19 U/L (14-36); BILIRUBIN,DIRECT 0.3 mg/dL (0.0-0.4); BILIRUBIN,TOTAL 0.4 mg/dL (0.2-1.3); BLOOD UREA NITROGEN 17 mg/dL (7-20); CALCIUM 9.1 mg/dL (8.4-10.2); CARBON DIOXIDE 28 mmol/L (22-30); CHLORIDE 97 mmol/L (98-107); GLUCOSE 152 mg/dL (75-110); POTASSIUM 4.1 mmol/L (3.6-5.0); TOTAL PROTEIN 6.8 g/dL (6.3-8.2)
[2019-05-21] MEDS: INSULIN LISPRO 100 UNIT/ML 3 ML VIAL SUBCUT SCH ×4 (08:17→21:04)
[2019-05-21] MEDS: MIRTAZAPINE 15 MG TABLET PO SCH (08:18)
[2019-05-21] MEDS: PRAMIPEXOLE DI-HCL 0.5 MG TABLET PO SCH ×2 (09:26→21:07)
[2019-05-21] MEDS: SITAGLIPTIN PHOSPHATE 50 MG TABLET PO SCH (09:26)
[2019-05-21] MEDS: PANTOPRAZOLE SODIUM 40 MG TABLET.DR PO SCH (09:26)
[2019-05-21] MEDS: DOCUSATE SODIUM 100 MG CAPSULE PO SCH ×2 (09:26→17:17)
--- NOTE | 2019-05-21 16:19 | PDOC PROGRESS REPORT ---
Subjective Progress Note for:: 05/21/19 Subjective:: Patient denied any chest pain or difficulty with breathing. No fever or chills. No nausea, vomiting,m or abdominal pain. P.O intake remain limited due to poor dentition. Reason For Visit: ACUTE CHF Physical Exam Vital Signs: Temp Pulse Resp BP Pulse Ox 98.0 F 91 16 116/63 97 05/21/19 07:15 05/21/19 14:00 05/21/19 07:15 05/21/19 07:15 05/21/19 07:15 Intake & Output 05/20/19 05/21/19 05/22/19 06:59 06:59 06:59 Intake Total 1545 1191 440 Output Total 1250 950 500 Balance 295 241 -60 Weight 77.3 kg 77.1 kg General appearance: PRESENT: no acute distress, obese Head exam: PRESENT: atraumatic, normocephalic Eye exam: PRESENT: conjunctiva pink. ABSENT: scleral icterus Ear exam: PRESENT: normal external ear exam Mouth exam: PRESENT: moist Teeth exam: PRESENT: edentulous Respiratory exam: PRESENT: clear to auscultation isak, decreased breath sounds - at lung bases Cardiovascular exam: PRESENT: RRR. ABSENT: diastolic murmur, rubs, systolic murmur Vascular exam: ABSENT: pallor GI/Abdominal exam: PRESENT: normal bowel sounds, soft. ABSENT: distended, guarding, mass, organolmegaly, rebound, tenderness Extremities exam: ABSENT: pedal edema Musculoskeletal exam: PRESENT: deformity - related to multiple joints involvement with arthritis Neurological exam: PRESENT: alert, awake, oriented to person, oriented to place, oriented to time, oriented to situation, CN II-XII grossly intact. ABSENT: motor sensory deficit Psychiatric exam: PRESENT: appropriate affect, normal mood. ABSENT: homicidal ideation, suicidal ideation Skin exam: PRESENT: dry, warm Results Laboratory Results: 05/21/19 05:11 05/21/19 05:11 05/20/19 05/20/19 05/21/19 20:23 20:23 05:11 WBC 10.9 H 10.6 H RBC 4.22 4.52 Hgb 11.1 L 12.0 Hct 33.2 L 35.7 L MCV 79 L 79 L MCH 26.4 L 26.5 L MCHC 33.6 33.5 RDW 15.2 H 15.6 H Plt Count 386 366 Seg Neutrophils % 74.0 70.5 Sodium 132.1 L Potassium 4.3 Chloride 96 L Carbon Dioxide 29 Anion Gap 7 BUN 18 Creatinine 0.66 Est GFR ( Amer) > 60 Glucose 301 H Calcium 9.2 Total Bilirubin 0.2 AST 18 Alkaline Phosphatase 65 Total Protein 6.3 Albumin 3.4 L 05/21/19 05:11 WBC RBC Hgb Hct MCV MCH MCHC RDW Plt Count Seg Neutrophils % Sodium 136.2 L Potassium 4.1 Chloride 97 L Carbon Dioxide 28 Anion Gap 11 BUN 17 Creatinine 0.61 Est GFR ( Amer) > 60 Glucose 152 H Calcium 9.1 Total Bilirubin 0.4 AST 19 Alkaline Phosphatase 65 Total Protein 6.8 Albumin 3.6 05/18/19 05/18/19 05/18/19 12:58 12:58 20:25 Creatine Kinase 58 48 CK-MB (CK-2) 1.72 Troponin I < 0.012 NT-Pro-B Natriuret Pep 255 05/18/19 05/19/19 05/19/19 20:25 02:52 02:52 Creatine Kinase 56 CK-MB (CK-2) 1.31 1.24 Troponin I < 0.012 < 0.012 NT-Pro-B Natriuret Pep Impressions: Chest X-Ray 05/18/19 00:00 IMPRESSION: No evidence of acute cardiopulmonary disease. Assessment & Plan - Diagnosis (1) Acute diastolic (congestive) heart failure Is this a current diagnosis for this admission?: Yes Plan: D/C IV Lasix infusion. Start on Lasix 20 mg p.o daily. Start on Lisinopril 10 mg p.o daily in view of associated LVH and preserved LVEF. (2) Bilateral lower extremity edema Is this a current diagnosis for this admission?: Yes Plan: Maintain on Lasix therapy and dietary salt restriction. (3) Hypertension Qualifiers: Hypertension type: essential hypertension Qualified Code(s): I10 - Essential (primary) hypertension Is this a current diagnosis for this admission?: Yes Plan: D/C IV Lasix. Start on Lasix 20 mg po daily and Lisinopril 10 mg po daily. (4) T2DM (type 2 diabetes mellitus) Qualifiers: Diabetes mellitus longterm insulin use: without watermelon inspector use Diabetes mellitus complication status: without complication Qualified Code(s): E11.9 - Type 2 diabetes mellitus without complications Is this a current diagnosis for this admission?: Yes Plan: Continue current medication management. - Time Time Spent with patient: 35 or more minutes Level of Care: IMCU Medications reviewed and adjusted accordingly: Yes Anticipated discharge: Home with Homehealth Within: Other - Inpatient Certification Based on my medical assessment, after consideration of the patient's comorbidities, presenting symptoms, or acuity I expect that the services needed warrant INPATIENT care.: Yes I certify that my determination is in accordance with my understanding of Medicare's requirements for reasonable and necessary INPATIENT services [42 CFR 412.3e].: Yes Medical Necessity: Significant Comorbidiites Make Outpatient Treatment Too Risky, Need Close Monitoring Due to Risk of Patient Decompensation, Need For Continuous Telemetry Monitoring, Risk of Complication if Not Cared For in Hospital, Risk of Diagnosis Which Will Require Inpatient Eval/Care/Monitoring Post Hospital Care: D/C Sorter Operator Documentation - Plan Summary Plan Summary: See covering attending physician orders for details about acre plan.
[2019-05-21] MEDS: BUTALB/ACETAMINOPHEN/CAFFEINE 1 TAB EACH PO PRN (17:33)
[2019-05-22] MEDS: OXYCODONE HCL IR 5 MG TABLET PO PRN ×3 (03:08→20:36)
[2019-05-22] MEDS: INSULIN LISPRO 100 UNIT/ML 3 ML VIAL SUBCUT SCH ×4 (07:55→21:05)
[2019-05-22] MEDS: MIRTAZAPINE 15 MG TABLET PO SCH (08:17)
[2019-05-22] MEDS: DOCUSATE SODIUM 100 MG CAPSULE PO SCH ×2 (09:54→17:02)
[2019-05-22] MEDS: PRAMIPEXOLE DI-HCL 0.5 MG TABLET PO SCH ×2 (09:54→21:06)
[2019-05-22] MEDS: SITAGLIPTIN PHOSPHATE 50 MG TABLET PO SCH (09:54)
[2019-05-22] MEDS: PANTOPRAZOLE SODIUM 40 MG TABLET.DR PO SCH (09:54)
[2019-05-22] MEDS: LISINOPRIL 10 MG TABLET PO SCH (09:55)
[2019-05-22] MEDS: FUROSEMIDE 20 MG TABLET PO SCH (09:55)
[2019-05-22] MEDS: BUTALB/ACETAMINOPHEN/CAFFEINE 1 TAB EACH PO PRN (13:08)
--- NOTE | 2019-05-22 17:05 | PDOC PROGRESS REPORT ---
Subjective Progress Note for:: 05/22/19 Subjective:: No chest pain or difficulty with breathing. No fever or chills. PO intake is improving. No nausea, vomiting,m or abdominal pain. Reason For Visit: ACUTE CHF Physical Exam Vital Signs: Temp Pulse Resp BP Pulse Ox 98.0 F 113 H 17 137/63 H 96 05/22/19 11:31 05/22/19 14:00 05/22/19 11:31 05/22/19 11:31 05/22/19 11:31 Intake & Output 05/21/19 05/22/19 05/23/19 06:59 06:59 06:59 Intake Total 1191 1065 780 Output Total 950 1325 600 Balance 241 -260 180 Weight 77.1 kg 77.6 kg Physical Exam: General appearance: PRESENT: no acute distress, obese Head exam: PRESENT: atraumatic, normocephalic Eye exam: PRESENT: conjunctiva pink. ABSENT: pallor, scleral icterus Ear exam: PRESENT: normal external ear exam Mouth exam: PRESENT: moist Teeth exam: PRESENT: edentulous Respiratory exam: PRESENT: clear to auscultation isak, decreased breath sounds - at lung bases Cardiovascular exam: PRESENT: RRR. ABSENT: diastolic murmur, rubs, systolic murmur GI/Abdominal exam: PRESENT: normal bowel sounds, soft. ABSENT: distended, guarding, mass, organomegaly, rebound, tenderness Extremities exam: ABSENT: pedal edema Musculoskeletal exam: PRESENT: deformity - related to multiple joints involvement with arthritis Neurological exam: PRESENT: alert, awake, oriented to person, oriented to place, oriented to time, oriented to situation, CN II-XII grossly intact. ABSENT: motor sensory deficit Psychiatric exam: PRESENT: appropriate affect, normal mood. ABSENT: homicidal ideation, suicidal ideation Skin exam: PRESENT: dry, warm Results Laboratory Results: 05/21/19 05:11 05/21/19 05:11 05/18/19 05/18/19 05/18/19 12:58 12:58 20:25 Creatine Kinase 58 48 CK-MB (CK-2) 1.72 Troponin I < 0.012 NT-Pro-B Natriuret Pep 255 05/18/19 05/19/19 05/19/19 20:25 02:52 02:52 Creatine Kinase 56 CK-MB (CK-2) 1.31 1.24 Troponin I < 0.012 < 0.012 NT-Pro-B Natriuret Pep Impressions: Chest X-Ray 05/18/19 00:00 IMPRESSION: No evidence of acute cardiopulmonary disease. Assessment & Plan - Diagnosis (1) Acute diastolic (congestive) heart failure Is this a current diagnosis for this admission?: Yes (2) Bilateral lower extremity edema Is this a current diagnosis for this admission?: Yes (3) Hypertension Qualifiers: Hypertension type: essential hypertension Qualified Code(s): I10 - Essential (primary) hypertension Is this a current diagnosis for this admission?: Yes (4) T2DM (type 2 diabetes mellitus) Qualifiers: Diabetes mellitus medical terminologist insulin use: without medical terminologist use Diabetes mellitus complication status: without complication Qualified Code(s): E11.9 - Type 2 diabetes mellitus without complications Is this a current diagnosis for this admission?: Yes - Time Time Spent with patient: 25-34 minutes Level of Care: IMCU Medications reviewed and adjusted accordingly: Yes Anticipated discharge: Home with Homehealth Within: Other - Inpatient Certification Based on my medical assessment, after consideration of the patient's comorbidities, presenting symptoms, or acuity I expect that the services needed warrant INPATIENT care.: Yes I certify that my determination is in accordance with my understanding of Medicare's requirements for reasonable and necessary INPATIENT services [42 CFR 412.3e].: Yes Medical Necessity: Significant Comorbidiites Make Outpatient Treatment Too Risky, Need Close Monitoring Due to Risk of Patient Decompensation, Need For Continuous Telemetry Monitoring, Risk of Complication if Not Cared For in Hospital, Risk of Diagnosis Which Will Require Inpatient Eval/Care/Monitoring Post Hospital Care: D/C Pulverizer Documentation - Plan Summary Plan Summary: Continue current medication management. Obtain CBC with diff, BMP in am.
[2019-05-23] MEDS: OXYCODONE HCL IR 5 MG TABLET PO PRN ×3 (02:30→21:21)
[2019-05-23] MEDS: BUTALB/ACETAMINOPHEN/CAFFEINE 1 TAB EACH PO PRN ×2 (05:12→18:01)
[2019-05-23] MEDS: INSULIN LISPRO 100 UNIT/ML 3 ML VIAL SUBCUT SCH ×4 (09:00→22:57)
[2019-05-23] MEDS: DOCUSATE SODIUM 100 MG CAPSULE PO SCH ×2 (09:33→17:55)
[2019-05-23] MEDS: MIRTAZAPINE 15 MG TABLET PO SCH (09:37)
[2019-05-23] MEDS: LISINOPRIL 10 MG TABLET PO SCH (09:37)
[2019-05-23] MEDS: FUROSEMIDE 20 MG TABLET PO SCH (09:37)
[2019-05-23] MEDS: SITAGLIPTIN PHOSPHATE 50 MG TABLET PO SCH (09:38)
[2019-05-23] MEDS: PANTOPRAZOLE SODIUM 40 MG TABLET.DR PO SCH (09:38)
[2019-05-23] MEDS: PRAMIPEXOLE DI-HCL 0.5 MG TABLET PO SCH ×2 (09:45→21:21)
--- NOTE | 2019-05-23 20:40 | PDOC PROGRESS REPORT ---
Subjective Progress Note for:: 05/23/19 Subjective:: Patient seen by the bedside, she was advised of the need to be compliant with her medication for the control of diabetes, she was diagnosed with diabetes but she has consistently, intentionally not compliant with the medication.She is agreeable to be more compliant Reason For Visit: ACUTE CHF Physical Exam Vital Signs: Temp Pulse Resp BP Pulse Ox 98.3 F 90 17 125/66 95 05/23/19 16:01 05/23/19 19:00 05/23/19 16:01 05/23/19 16:01 05/23/19 16:01 Intake & Output 05/22/19 05/23/19 05/24/19 06:59 06:59 06:59 Intake Total 1065 1244 360 Output Total 1325 1700 900 Balance -260 -456 -540 Weight 77.6 kg 77.3 kg General appearance: PRESENT: no acute distress Eye exam: PRESENT: PERRLA Respiratory exam: PRESENT: clear to auscultation isak Cardiovascular exam: PRESENT: +S1, +S2 GI/Abdominal exam: PRESENT: soft Neurological exam: PRESENT: alert Results Laboratory Results: 05/21/19 05:11 05/21/19 05:11 05/18/19 05/18/19 05/18/19 12:58 12:58 20:25 Creatine Kinase 58 48 CK-MB (CK-2) 1.72 Troponin I < 0.012 NT-Pro-B Natriuret Pep 255 05/18/19 05/19/19 05/19/19 20:25 02:52 02:52 Creatine Kinase 56 CK-MB (CK-2) 1.31 1.24 Troponin I < 0.012 < 0.012 NT-Pro-B Natriuret Pep Impressions: Chest X-Ray 05/18/19 00:00 IMPRESSION: No evidence of acute cardiopulmonary disease. Assessment & Plan - Diagnosis (1) Bilateral lower extremity edema Is this a current diagnosis for this admission?: Yes (2) T2DM (type 2 diabetes mellitus) Qualifiers: Diabetes mellitus half-way insulin use: without rat exterminator use Diabetes mellitus complication status: with hyperglycemia Qualified Code(s): E11.65 - Type 2 diabetes mellitus with hyperglycemia Is this a current diagnosis for this admission?: Yes (3) Essential (primary) hypertension Is this a current diagnosis for this admission?: Yes (4) Bipolar 1 disorder, depressed Is this a current diagnosis for this admission?: Yes - Time Time Spent with patient: 25-34 minutes
--- NOTE | 2019-05-23 20:55 | PDOC DISCHARGE SUMMARY ---
Impression - Admit/DC Date/PCP Admission Date/Primary Care Provider: 05/23/19 14:05 ROSLYN TOLEDO MD Discharge Date: 05/24/19 - Discharge Diagnosis (1) Bilateral lower extremity edema Is this a current diagnosis for this admission?: Yes (2) T2DM (type 2 diabetes mellitus) Is this a current diagnosis for this admission?: Yes (3) Essential (primary) hypertension Is this a current diagnosis for this admission?: Yes (4) Bipolar 1 disorder, depressed Is this a current diagnosis for this admission?: Yes - Additional Information Discharge Diet: Cardiac, Diabetic Discharge Activity: Activity As Tolerated, Balance Activity w/Rest, Weigh Daily Referrals: ROSLYN TOLEDO MD [Primary Care Provider] - 05/26/19 9:45 am Prescriptions: Sitagliptin Phosphate [Januvia] 100 mg PO DAILY #90 tablet RX: Lisinopril [Prinivil 10 mg Tablet] 10 mg PO DAILY #90 tablet Home Medications: RX: Pramipexole Di-HCl [Pramipexole Dihydrochloride] 0.5 mg PO Q12 01/13/19 RX: Pantoprazole Sodium [Protonix [address] Tablet] 40 mg PO DAILY #90 tablet.dr 01/19/19 RX: Buprenorphine [Butrans] 1 patch TOP .QWEEKLY MDD CANT REMEMBER WHAT DAY 05/18/19 RX: Mirtazapine 45 mg PO QAM 05/18/19 RX: Tramadol HCl [Ultram 50 mg Tablet] 50 mg PO Q8HP PRN 05/18/19 RX: Lisinopril [Prinivil 10 mg Tablet] 10 mg PO DAILY #90 tablet 05/23/19 Sitagliptin Phosphate [Januvia] 100 mg PO DAILY #90 tablet 05/23/19 History of Present Illiness History of Present Illness: ALANA ROMERO is a 78 year old female, She came to the office for evaluation of lower extremity edema, she was in the wheelchair she said she could not walk she was requesting to be admitted to the hospital she says she does not know what the problem was, she was very hysterical. In the office she was evaluated, my immediate concern was the need to rule out congestive heart failure, she denies any chest pain but she admitted to having shortness of breath. She was admitted directly from the office to the hospital, the initial BMP was normal which suggests that she probably does not have CHF. Chest x-ray was clear there was no pulmonary edema, 2D echo was done, it showed preserved ejection fraction of left ventricle there was Pseudonormalization of E/A ratio that suggest grade 2 diastolic dysfunction of left ventricle.The urine protein creatinine ratio was 1.8 Hospital Course Hospital Course: Patient was admitted for the management of lower extremity edema, poorly controlled diabetes mellitus. She was treated with furosemide infusion, patient with history of diabetes mellitus she is consistently poorly adherent to medication outpatient for the control of diabetes mellitus, she has finally on this admission accepted the fact that she is a diabetic. she now promised to be compliant and adherent to recommended medication for control of diabetes. But she has proteinuria but nonnephrotic range proteinuria she has tremendous lower extremity edema that was treated successfully with IV furosemide there was no CHF, no nephrotic syndrome or liver failure that will account for the lower ex tremity edema. Physical Exam Vital Signs: Temp Pulse Resp BP Pulse Ox 98.3 F 90 17 125/66 95 05/23/19 16:01 05/23/19 19:00 05/23/19 16:01 05/23/19 16:01 05/23/19 16:01 Intake & Output 05/22/19 05/23/19 05/24/19 06:59 06:59 06:59 Intake Total 1065 1244 360 Output Total 1325 1700 900 Balance -260 -456 -540 Weight 77.6 kg 77.3 kg General appearance: PRESENT: no acute distress Eye exam: PRESENT: PERRLA Respiratory exam: PRESENT: clear to auscultation isak Cardiovascular exam: PRESENT: +S1, +S2 GI/Abdominal exam: PRESENT: soft Neurological exam: PRESENT: alert, CN II-XII grossly intact Results Laboratory Results: WBC 10.6 10^3/uL (4.0-10.5) H 05/21/19 05:11 RBC 4.52 10^6/uL (3.72-5.28) 05/21/19 05:11 Hgb 12.0 g/dL (12.0-15.5) 05/21/19 05:11 Hct 35.7 % (36.0-47.0) L 05/21/19 05:11 MCV 79 fl (80-97) L 05/21/19 05:11 MCH 26.5 pg (27.0-33.4) L 05/21/19 05:11 MCHC 33.5 g/dL (32.0-36.0) 05/21/19 05:11 RDW 15.6 % (11.5-14.0) H 05/21/19 05:11 Plt Count 366 10^3/uL (150-450) 05/21/19 05:11 Lymph % (Auto) 18.8 % (13-45) 05/21/19 05:11 Story % (Auto) 8.6 % (3-13) 05/21/19 05:11 Eos % (Auto) 1.5 % (0-6) 05/21/19 05:11 Baso % (Auto) 0.6 % (0-2) 05/21/19 05:11 Absolute Neuts (auto) 7.5 10^3/uL (1.7-8.2) 05/21/19 05:11 Absolute Lymphs (auto) 2.0 10^3/uL (0.5-4.7) 05/21/19 05:11 Absolute Monos (auto) 0.9 10^3/uL (0.1-1.4) 05/21/19 05:11 Absolute Eos (auto) 0.2 10^3/uL (0.0-0.6) 05/21/19 05:11 Absolute Basos (auto) 0.1 10^3/uL (0.0-0.2) 05/21/19 05:11 Seg Neutrophils % 70.5 % (42-78) 05/21/19 05:11 Sodium 136.2 mmol/L (137-145) L 05/21/19 05:11 Potassium 4.1 mmol/L (3.6-5.0) 05/21/19 05:11 Chloride 97 mmol/L (98-107) L 05/21/19 05:11 Carbon Dioxide 28 mmol/L (22-30) 05/21/19 05:11 Anion Gap 11 (5-19) 05/21/19 05:11 BUN 17 mg/dL (7-20) 05/21/19 05:11 Creatinine 0.61 mg/dL (0.52-1.25) 05/21/19 05:11 Est GFR ( Amer) > 60 (>60) 05/21/19 05:11 Est GFR (MDRD) Non-Af > 60 (>60) 05/21/19 05:11 Glucose 152 mg/dL (75-110) H 05/21/19 05:11 POC Glucose 208 mg/dL (70-110) H 05/23/19 16:25 Hemoglobin A1c % 7.7 % (4.7-6.0) H 05/18/19 12:58 Calcium 9.1 mg/dL (8.4-10.2) 05/21/19 05:11 Total Bilirubin 0.4 mg/dL (0.2-1.3) 05/21/19 05:11 Direct Bilirubin 0.3 mg/dL (0.0-0.4) 05/21/19 05:11 Neonat Total Bilirubin Not Reportable 05/21/19 05:11 Neonat Direct Bilirubin Not Reportable 05/21/19 05:11 Neonat Indirect Bili Not Reportable 05/21/19 05:11 AST 19 U/L (14-36) 05/21/19 05:11 ALT 14 U/L (<35) 05/21/19 05:11 Alkaline Phosphatase 65 U/L (38-126) 05/21/19 05:11 Creatine Kinase 56 U/L (30-135) 05/19/19 02:52 CK-MB (CK-2) 1.24 ng/mL (<4.55) 05/19/19 02:52 Troponin I < 0.012 ng/mL 05/19/19 02:52 NT-Pro-B Natriuret Pep 255 pg/mL (<450) 05/18/19 12:58 Total Protein 6.8 g/dL (6.3-8.2) 05/21/19 05:11 Albumin 3.6 g/dL (3.5-5.0) 05/21/19 05:11 TSH 4.30 uIU/mL (0.47-4.68) 05/18/19 12:58 Free T4 1.29 ng/dL (0.78-2.19) 05/18/19 12:58 Urine Color STRAW 05/18/19 15:35 Urine Appearance CLEAR 05/18/19 15:35 Urine pH 7.0 (5.0-9.0) 05/18/19 15:35 Ur Specific [place] 1.004 05/18/19 15:35 Urine Protein NEGATIVE mg/dL (NEGATIVE) 05/18/19 15:35 Urine Glucose (UA) 50 mg/dL (NEGATIVE) H 05/18/19 15:35 Urine Ketones NEGATIVE mg/dL (NEGATIVE) 05/18/19 15:35 Urine Blood NEGATIVE (NEGATIVE) 05/18/19 15:35 Urine Nitrite NEGATIVE (NEGATIVE) 05/18/19 15:35 Urine Bilirubin NEGATIVE (NEGATIVE) 05/18/19 15:35 Urine Urobilinogen NEGATIVE mg/dL (<2.0) 05/18/19 15:35 Ur Leukocyte Esterase NEGATIVE (NEGATIVE) 05/18/19 15:35 Urine WBC (Auto) 0 /HPF 05/18/19 15:35 Urine RBC (Auto) 0 /HPF 05/18/19 15:35 Urine Bacteria (Auto) TRACE /HPF 05/18/19 15:35 Squamous Epi Cells Auto 1 /HPF 05/18/19 15:35 Urine Mucus (Auto) RARE /LPF 05/18/19 15:35 Urine Creatinine 8.5 mg/dL (15-278) L 05/18/19 15:35 Protein/Creatinin Ratio 1.8 mg/mg (0.0-0.2) H 05/18/19 15:35 Urine Total Protein 14.9 mg/dL (<12) H 05/18/19 15:35 Urine Ascorbic Acid NEGATIVE (NEGATIVE) 05/18/19 15:35 05/18/19 05/18/19 05/19/19 12:58 20:25 02:52 CK-MB (CK-2) 1.72 1.31 1.24 Troponin I < 0.012 < 0.012 < 0.012 NT-Pro-B Natriuret Pep 255 Impressions: Chest X-Ray 05/18/19 00:00 IMPRESSION: No evidence of acute cardiopulmonary disease. Stroke Is this a Stroke Patient?: No Acute Heart Failure - Is this a Heart Failure Patient?: No
[2019-05-24] MEDS: OXYCODONE HCL IR 5 MG TABLET PO PRN (04:03)
[2019-05-24] MEDS: BUTALB/ACETAMINOPHEN/CAFFEINE 1 TAB EACH PO PRN (04:05)
[2019-05-24] MEDS: INSULIN LISPRO 100 UNIT/ML 3 ML VIAL SUBCUT SCH (08:18)
[2019-05-24] MEDS: MIRTAZAPINE 15 MG TABLET PO SCH (08:28)
[2019-05-24 08:33] VITALS: BP 113/57
== END 2019-05-24 09:45 | disposition home health service (06) | DRG 948 ==
LOC: INTOOBSV 11:46 → 3S 11:46 → 3W 05-22 23:13 → OBSVTOIN 05-23 14:05
PROVIDERS: ADMIT Internal Medicine; ATTEND Internal Medicine
DX: R60.9 Edema, unspecified (principal); E78.5 Hyperlipidemia, unspecified; I10 Essential (primary) hypertension; E11.8 Type 2 diabetes mellitus with unspecified complications; K21.9 Gastro-esophageal reflux disease without esophagitis; F31.9 Bipolar disorder, unspecified
CPT/HCPCS: 36415; 71045; 80048; 80053; 80076; 81001; 82550; 82553; 82570; 82962; 83036; 83880; 84132; 84156; 84439; 84443; 84484; 85025; 85027; 93005; 93010; 93306; G0378; J1815; J1940; J3490; J7050

== ENCOUNTER 2019-05-30 13:34 | Observation (INO) | payer MEDICARE, MEDICAID ==
--- NOTE | 2019-05-30 15:28 | ER Document Report ---
HPI - HPI Time Seen by Provider: 05/30/19 15:16 Context: Patient is a 78-year-old female who presents emergency department with a chief complaint of nausea, vomiting diarrhea. Patient was sent here from Dr. Toledo's office with direct admit orders. Patient reports she is been unable to keep anything down and is having abdominal pain. Patient reports upper abdominal pain feels like hunger pains. Patient denies fever. - REPRODUCTIVE Reproductive: DENIES: : Past Medical History - General Information source: Patient - Social History Smoking Status: Unknown if Ever Smoked Lives with: Alone Family History: Reviewed & Not Pertinent - Past Medical History Cardiac Medical History: Reports: Hx Hypercholesterolemia, Hx Hypertension Pulmonary Medical History: Reports: Hx COPD Denies: Hx Bronchitis EENT Medical History: Reports: None Neurological Medical History: Reports: None. Denies: Hx Seizures, Hx Parkinson's Disease Endocrine Medical History: Reports: Hx Diabetes Mellitus Type 2 - "borderline" Renal/ Medical History: Reports: Hx Ovarian Cysts. Denies: Hx Peritoneal Dialysis Malignancy Medical History: Reports: Hx Cervical Cancer - uterine cancer GI Medical History: Reports: Hx Gastroesophageal Reflux Disease Musculoskeletal Medical History: Reports Hx Arthritis - back, shoulders, and neck, Reports Hx Musculoskeletal Deformity - Chronic back pain arthritis and back shoulder or neck Skin Medical History: Reports None Psychiatric Medical History: Reports: Hx Bipolar Disorder, Hx Depression Traumatic Medical History: Reports: None Infectious Medical History: Reports: None Past Surgical History: Reports: Hx Section, Hx Gynecologic Surgery, Hx Orthopedic Surgery, Hx Tubal Ligation. Denies: Hx Hysterectomy - Immunizations Immunizations up to date: Yes Hx Diphtheria, Pertussis, Tetanus Vaccination: Yes Hx Pneumococcal Vaccination: 02/01/13 Vertical Provider Document - CONSTITUTIONAL Agree With Documented VS: Yes Exam Limitations: No Limitations General Appearance: No Apparent Distress - INFECTION CONTROL TRAVEL OUTSIDE OF THE [place] IN LAST 30 DAYS: No - HEENT HEENT: Atraumatic, Normocephalic, PERRLA - NECK Neck: Normal Inspection - RESPIRATORY Respiratory: Breath Sounds Normal, No Respiratory Distress - CARDIOVASCULAR Cardiovascular: Regular Rate, Regular Rhythm - GI/ABDOMEN Gastrointestinal: Abdomen Soft, Abdomen Non-Tender, Normal Bowel Sounds - MUSCULOSKELETAL/EXTREMETIES Musculoskeletal/Extremeties: FROM - NEURO Level of Consciousness: Awake, Alert, Appropriate Course - Re-evaluation Re-evalutation: 05/30/19 15:29 Patient was sent from Dr. Toledo's office with direct admit orders. Physical assessment was obtained in triage and a bed order placed. - Vital Signs Vital signs: Temp Pulse Resp BP Pulse Ox 98.6 F 87 18 128/76 H 99 05/30/19 13:43 05/30/19 13:43 05/30/19 13:43 05/30/19 13:43 05/30/19 13:43 Discharge - Discharge Clinical Impression: Persistent vomiting Diarrhea Qualifiers: Diarrhea type: unspecified type Qualified Code(s): R19.7 - Diarrhea, unspecified Condition: Stable Disposition: ADMITTED OBSERVATION Admitting Provider: [facility] Unit Admitted: Medical Floor Referrals: ROSLYN TOLEDO MD [Primary Care Provider] - Follow up as needed
[2019-05-30] MEDS: MORPHINE SULFATE 10 MG/ML INJ IV PRN ×2 (17:44→23:31)
[2019-05-30] MEDS: 1/2 NORMAL SALINE 1,000 ML IV PRN (17:47)
[2019-05-30 20:20] LABS: ABSOLUTE EOSINOPHILS # (AUTO) 0.1 10^3/uL (0.0-0.6); ABSOLUTE LYMPHOCYTES (AUTO) 2.6 10^3/uL (0.5-4.7); ABSOLUTE MONOCYTES (AUTO) 0.7 10^3/uL (0.1-1.4); ABSOLUTE NEUT (AUTO) 8.4 10^3/uL (1.7-8.2); BASOPHILS % (AUTO) 0.3 % (0-2); HEMATOCRIT 35.4 % (36.0-47.0); HEMOGLOBIN 11.8 g/dL (12.0-15.5); LYMPHOCYTES % (AUTO) 21.7 % (13-45); MEAN CORPUSCULAR HEMOGLOBIN 26.4 pg (27.0-33.4); MEAN CORPUSCULAR HGB CONC 33.2 g/dL (32.0-36.0); MEAN CORPUSCULAR VOLUME 79 fl (80-97); MONOCYTES % (AUTO) 6.1 % (3-13); PLATELET COUNT 418 10^3/uL (150-450); RED BLOOD COUNT 4.46 10^6/uL (3.72-5.28); RED CELL DISTRIBUTION WIDTH 15.4 % (11.5-14.0); SEGMENTED NEUTROPHILS % (AUTO) 70.9 % (42-78); TOTAL CELLS COUNTED % (AUTO) 100 %; WHITE BLOOD COUNT 11.8 10^3/uL (4.0-10.5)
[2019-05-30 20:35] LABS: ALBUMIN 3.7 g/dL (3.5-5.0); ALKALINE PHOSPHATASE 82 U/L (38-126); ANION GAP 13 (5-19); ASPARTATE AMINO TRANSFERASE 23 U/L (14-36); BILIRUBIN,DIRECT 0.3 mg/dL (0.0-0.4); BILIRUBIN,TOTAL 0.4 mg/dL (0.2-1.3); BLOOD UREA NITROGEN 10 mg/dL (7-20); CALCIUM 9.3 mg/dL (8.4-10.2); CARBON DIOXIDE 20 mmol/L (22-30); CHLORIDE 100 mmol/L (98-107); GLUCOSE 175 mg/dL (75-110); TOTAL PROTEIN 7.1 g/dL (6.3-8.2)
[2019-05-30 21:44] LABS: APPEARANCE,URINE CLEAR; BILIRUBIN,URINE NEGATIVE (NEGATIVE); COLOR,URINE YELLOW; GLUCOSE, URINE NEGATIVE (NEGATIVE); KETONES,URINE NEGATIVE (NEGATIVE); LEUKOCYTE ESTERASE,URINE NEGATIVE (NEGATIVE); NITRITE,URINE NEGATIVE (NEGATIVE); PROTEIN,URINE NEGATIVE (NEGATIVE); URINE SPECIFIC GRAVITY 1.013; UROBILINOGEN,URINE NEGATIVE mg/dL (<2.0)
[2019-05-31] MEDS: 1/2 NORMAL SALINE 1,000 ML IV PRN ×2 (03:29→12:55)
[2019-05-31] MEDS ORDERED: DEXTROSE 40% GEL 15 GM TUBE X 2 PO PRN (04:00)
[2019-05-31] MEDS ORDERED: DEXTROSE 50%-WATER SYRINGE 12.5 GM/25 ML DOSE IV PRN (04:00)
[2019-05-31] MEDS ORDERED: DEXTROSE 50%-WATER SYRINGE 25 GM/50 ML DOSE IV PRN (04:00)
[2019-05-31] MEDS ORDERED: DEXTROSE 40% GEL 15 GM TUBE PO PRN (04:00)
[2019-05-31] MEDS ORDERED: GLUCAGON,HUMAN RECOMB 1 MG INJ IM PRN (04:00)
[2019-05-31] MEDS: PANTOPRAZOLE SODIUM 40 MG TABLET.DR PO SCH ×2 (05:09→22:05)
[2019-05-31] MEDS: MORPHINE SULFATE 10 MG/ML INJ IV PRN ×4 (05:09→23:22)
[2019-05-31] MEDS: INSULIN LISPRO 100 UNIT/ML 3 ML VIAL SUBCUT SCH ×4 (08:16→22:50)
[2019-05-31] MEDS ORDERED: ONDANSETRON HCL INJ/PF 4 MG/2 ML SDV ONE (09:01)
[2019-05-31] MEDS: PRAMIPEXOLE DI-HCL 0.5 MG TABLET PO SCH ×2 (10:36→17:32)
[2019-05-31] MEDS: SITAGLIPTIN PHOSPHATE 50 MG TABLET PO SCH (10:36)
[2019-05-31] MEDS: LISINOPRIL 10 MG TABLET PO SCH ×2 (10:36→22:05)
[2019-05-31] MEDS: MIRTAZAPINE 15 MG TABLET PO SCH (10:37)
[2019-05-31] MEDS: ONDANSETRON HCL INJ/PF 4 MG/2 ML SDV IV PRN ×2 (14:50→21:00)
[2019-05-31] MEDS ORDERED: BUTALB/ACETAMINOPHEN/CAFFEINE 1 TAB EACH PO PRN (17:59)
--- NOTE | 2019-05-31 20:13 | PDOC H&P ---
History of Present Illness Admission Date/PCP: 05/30/19 15:55 ROSLYN TOLEDO MD History of Present Illness: ALANA ROMERO is a 78 year old female, She came to the office for evaluation of vomiting and diarrhea this is a recurrent problem for this patient she was evaluated multiple times for the same problem with upper endoscopy, nuclear medicine gastric emptying time, she has diabetes mellitus not compliant with her diabetes care, she lives by herself, she was admitted for further evaluation and more importantly to prevent dehydration because she said she is not able to keep any food down, she has been vomiting and she also complained of profuse watery stool Past Medical History Cardiac Medical History: Reports: Hyperlipidema, Hypertension Pulmonary Medical History: Reports: Chronic Obstructive Pulmonary Disease (COPD) EENT Medical History: Reports: None Neurological Medical History: Reports: None Endocrine Medical History: Reports: Diabetes Mellitus Type 2 - "borderline" Malignancy Medical History: Reports: Cervical Cancer - uterine cancer GI Medical History: Reports: Gastroesophageal Reflux Disease Musculoskeltal Medical History: Reports: Arthritis - back, shoulders, and neck Skin Medical History: Reports: None Psychiatric Medical History: Reports: Bipolar Disorder, Depression Traumatic Medical History: Reports: None Infectious Medical History: Reports: None Past Surgical History Past Surgical History: Reports: Section, Orthopedic Surgery, Tubal Ligation Social History Lives with: Alone Smoking Status: Former Smoker Frequency of Alcohol Use: None Hx Recreational Drug Use: No Drugs: None Hx Prescription Drug Abuse: No Family History Family History: Reviewed & Not Pertinent Parental Family History Reviewed: Yes Children Family History Reviewed: Yes Sibling(s) Family History Reviewed.: Yes Medication/Allergy Home Medications: Pramipexole Di-HCl [Pramipexole Dihydrochloride] 0.5 mg PO Q12 01/13/19 Pantoprazole Sodium [Protonix [address] Tablet] 40 mg PO DAILY #90 tablet.dr 01/19/19 Buprenorphine [Butrans] 1 patch TOP .QWEEKLY MDD CANT REMEMBER WHAT DAY 05/18/19 Mirtazapine 45 mg PO QAM 05/18/19 Tramadol HCl [Ultram 50 mg Tablet] 50 mg PO Q8HP PRN 05/18/19 Lisinopril [Prinivil 10 mg Tablet] 10 mg PO DAILY #90 tablet 05/23/19 Sitagliptin Phosphate [Januvia] 100 mg PO DAILY #90 tablet 05/23/19 Allergies/Adverse Reactions: No Known Allergies Allergy (Unverified 05/18/19 16:11) Review of Systems Constitutional: ABSENT: chills, fever(s), headache(s), weight gain, weight loss Eyes: ABSENT: visual disturbances Ears: ABSENT: hearing changes Cardiovascular: ABSENT: chest pain, dyspnea on exertion, edema, orthropnea, palpitations Respiratory: ABSENT: cough, hemoptysis Gastrointestinal: PRESENT: diarrhea, vomiting. ABSENT: abdominal pain, constipation, hematemesis, hematochezia, nausea Genitourinary: ABSENT: dysuria, hematuria Musculoskeletal: ABSENT: joint swelling Integumentary: ABSENT: rash, wounds Neurological: ABSENT: abnormal gait, abnormal speech, confusion, dizziness, focal weakness, syncope Psychiatric: ABSENT: anxiety, depression, homidical ideation, suicidal ideation Endocrine: ABSENT: cold intolerance, heat intolerance, menstrual abnormalities, polydipsia, polyuria Hematologic/Lymphatic: ABSENT: easy bleeding, easy bruising, lymphadenopathy Physical Exam Vital Signs: Temp Pulse Resp BP Pulse Ox 98.2 F 77 17 122/56 L 96 05/31/19 15:41 05/31/19 15:41 05/31/19 15:41 05/31/19 15:41 05/31/19 15:41 Intake & Output 05/30/19 05/31/19 06/01/19 06:59 06:59 06:59 Intake Total 1452 1502 Balance 1452 1502 Weight 74.6 kg General appearance: PRESENT: no acute distress, well-developed, well-nourished Head exam: PRESENT: atraumatic, normocephalic Eye exam: PRESENT: conjunctiva pink, EOMI, PERRLA Ear exam: PRESENT: normal external ear exam Mouth exam: PRESENT: moist, tongue midline Neck exam: PRESENT: full ROM Respiratory exam: PRESENT: clear to auscultation isak Cardiovascular exam: PRESENT: RRR, +S1, +S2 Pulses: PRESENT: normal dorsalis pedis pul, +2 pedal pulses bilateral Vascular exam: PRESENT: normal capillary refill GI/Abdominal exam: PRESENT: normal bowel sounds, soft Rectal exam: PRESENT: deferred Neurological exam: PRESENT: alert, CN II-XII grossly intact Psychiatric exam: PRESENT: appropriate affect, normal mood Skin exam: PRESENT: dry, intact, warm Results Laboratory Results: 05/30/19 20:00 05/30/19 20:00 05/30/19 05/30/19 05/30/19 20:00 20:00 21:00 WBC 11.8 H RBC 4.46 Hgb 11.8 L Hct 35.4 L MCV 79 L MCH 26.4 L MCHC 33.2 RDW 15.4 H Plt Count 418 Seg Neutrophils % 70.9 Sodium 132.5 L Potassium 4.0 Chloride 100 Carbon Dioxide 20 L Anion Gap 13 BUN 10 Creatinine 0.72 Est GFR ( Amer) > 60 Glucose 175 H Calcium 9.3 Total Bilirubin 0.4 AST 23 Alkaline Phosphatase 82 Total Protein 7.1 Albumin 3.7 Urine Color YELLOW Urine Appearance CLEAR Urine pH 6.0 Ur Specific [place] 1.013 Urine Protein NEGATIVE Urine Glucose (UA) NEGATIVE Urine Ketones NEGATIVE Urine Blood NEGATIVE Urine Nitrite NEGATIVE Ur Leukocyte Esterase NEGATIVE Urine WBC (Auto) 0 Urine RBC (Auto) 1 Assessment & Plan - Diagnosis (1) Acute gastroenteritis Is this a current diagnosis for this admission?: Yes Plan: The etiology of the acute gastroenteritis is not clear probably viral, but is admitted for management for hydration (2) Dehydration Is this a current diagnosis for this admission?: Yes
[2019-05-31] MEDS ORDERED: TRAMADOL HCL 50 MG TABLET PO PRN (20:26)
[2019-05-31] MEDS ORDERED: (PENDING PHARMACY ID) (Buprenorphine [Butrans] 1 PATCH) TOP SCH (20:30)
--- NOTE | 2019-05-31 20:31 | PDOC PROGRESS REPORT ---
Subjective Progress Note for:: 05/31/19 Subjective:: Patient seen by the bedside, she has less diarrhea, she is very concerned about her symptoms, she is asking for EGD, she thinks may have ulcer, will consult GI for guidance Reason For Visit: PERSISTENT VOMITING Physical Exam Vital Signs: Temp Pulse Resp BP Pulse Ox 98.2 F 77 17 122/56 L 96 05/31/19 15:41 05/31/19 15:41 05/31/19 15:41 05/31/19 15:41 05/31/19 15:41 Intake & Output 05/30/19 05/31/19 06/01/19 06:59 06:59 06:59 Intake Total 1452 1502 Balance 1452 1502 Weight 74.6 kg General appearance: PRESENT: no acute distress Eye exam: PRESENT: PERRLA Respiratory exam: PRESENT: clear to auscultation isak Cardiovascular exam: PRESENT: +S1, +S2 GI/Abdominal exam: PRESENT: soft Neurological exam: PRESENT: alert Results Laboratory Results: 05/30/19 20:00 05/30/19 20:00 05/30/19 05/30/19 20:00 21:00 Sodium 132.5 L Potassium 4.0 Chloride 100 Carbon Dioxide 20 L Anion Gap 13 BUN 10 Creatinine 0.72 Est GFR ( Amer) > 60 Glucose 175 H Calcium 9.3 Total Bilirubin 0.4 AST 23 Alkaline Phosphatase 82 Total Protein 7.1 Albumin 3.7 Urine Color YELLOW Urine Appearance CLEAR Urine pH 6.0 Ur Specific [place] 1.013 Urine Protein NEGATIVE Urine Glucose (UA) NEGATIVE Urine Ketones NEGATIVE Urine Blood NEGATIVE Urine Nitrite NEGATIVE Ur Leukocyte Esterase NEGATIVE Urine WBC (Auto) 0 Urine RBC (Auto) 1 Assessment & Plan - Diagnosis (1) Acute gastroenteritis Is this a current diagnosis for this admission?: Yes Plan: Continue IV fluid therapy (2) Dehydration Is this a current diagnosis for this admission?: Yes Plan: Continue IV therapy (3) T2DM (type 2 diabetes mellitus) 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
--- NOTE | 2019-05-31 21:46 | PDOC CONSULTATION ---
Consultation Consult Date: 05/31/19 Provider Consulted: ZANE GONZALEZ Consult reason:: persistent nausea and vomiting. profuse diarrhea History of Present Illness Admission Date/PCP: 05/30/19 15:55 ROSLYN TOLEDO MD History of Present Illness: ALANA ROMERO is a 78 year old female patient is admitted to the hospital for nausea and vomiting patient is a diabetic with poor overall control EGD is requested likely has gastroparesis also complaining of diarrhea will need to have stool studies however she may have pancreatic insufficiency and may benefit from high dose pancreatic enzymes with meals will arrange for EGD and will try with Botox injection outpatient medications might need to be off label, e.g. erythromycin would avoid Reglan due to her age and increased risk of tardive dyskinesia Past Medical History Cardiac Medical History: Reports: Hyperlipidema, Hypertension Pulmonary Medical History: Reports: Chronic Obstructive Pulmonary Disease (COPD) Denies: Bronchitis EENT Medical History: Reports: None Neurological Medical History: Reports: None Denies: Seizures Endocrine Medical History: Reports: Diabetes Mellitus Type 2 - "borderline" Malignancy Medical History: Reports: Cervical Cancer - uterine cancer GI Medical History: Reports: Gastroesophageal Reflux Disease Musculoskeltal Medical History: Reports: Arthritis - back, shoulders, and neck Skin Medical History: Reports: None Psychiatric Medical History: Reports: Bipolar Disorder, Depression Traumatic Medical History: Reports: None Hematology: Denies: Anemia, Bleeding Tendencies Infectious Medical History: Reports: None Past Surgical History Past Surgical History: Reports: Section, Orthopedic Surgery, Tubal Ligation Denies: Hysterectomy Social History Lives with: Alone Smoking Status: Former Smoker Frequency of Alcohol Use: None Hx Recreational Drug Use: No Drugs: None Hx Prescription Drug Abuse: No Family History Family History: Reviewed & Not Pertinent Parental Family History Reviewed: Yes Children Family History Reviewed: Unknown Sibling(s) Family History Reviewed.: Unknown Medication/Allergy Home Medications: Pramipexole Di-HCl [Pramipexole Dihydrochloride] 0.5 mg PO Q12 01/13/19 Pantoprazole Sodium [Protonix [address] Tablet] 40 mg PO DAILY #90 tablet. 01/19/19 Buprenorphine [Butrans] 1 patch TOP .QWEEKLY MDD CANT REMEMBER WHAT DAY 05/18/19 Mirtazapine 45 mg PO QAM 05/18/19 Tramadol HCl [Ultram 50 mg Tablet] 50 mg PO Q8HP PRN 05/18/19 Lisinopril [Prinivil 10 mg Tablet] 10 mg PO DAILY #90 tablet 05/23/19 Sitagliptin Phosphate [Januvia] 100 mg PO DAILY #90 tablet 05/23/19 Allergies/Adverse Reactions: No Known Allergies Allergy (Unverified 05/18/19 16:11) Review of Systems Constitutional: ABSENT: fever(s), headache(s), night sweats Eyes: ABSENT: visual disturbances Ears: ABSENT: hearing changes Nose, Mouth, and Throat: ABSENT: mouth pain, sore throat Respiratory: ABSENT: dyspnea, hemoptysis Gastrointestinal: ABSENT: dysphagia, hematemesis, hematochezia Genitourinary: ABSENT: dysuria, hematuria Musculoskeletal: ABSENT: deformity, joint swelling Integumentary: ABSENT: pruritus Neurological: ABSENT: syncope, tingling, tremor(s), vertigo Psychiatric: ABSENT: hallucinations Endocrine: ABSENT: polydipsia, polyphagia, polyuria Hematologic/Lymphatic: ABSENT: easy bruising Physical Exam Vital Signs: Temp Pulse Resp BP Pulse Ox 98.2 F 77 17 122/56 L 96 05/31/19 15:41 05/31/19 15:41 05/31/19 15:41 05/31/19 15:41 05/31/19 15:41 Intake & Output 05/30/19 05/31/19 06/01/19 06:59 06:59 06:59 Intake Total 1452 1502 Balance 1452 1502 Weight 74.6 kg General appearance: PRESENT: no acute distress, well-developed Head exam: PRESENT: atraumatic, normocephalic Eye exam: PRESENT: EOMI, PERRLA. ABSENT: scleral icterus Mouth exam: PRESENT: moist, neck supple Neck exam: ABSENT: meningismus, thyromegaly, tracheal deviation Respiratory exam: PRESENT: clear to auscultation isak, symmetrical, unlabored. ABSENT: rhonchi Cardiovascular exam: PRESENT: RRR, +S1, +S2 GI/Abdominal exam: PRESENT: normal bowel sounds, soft. ABSENT: Polanco's sign, rebound, rigid Extremities exam: ABSENT: joint swelling, pedal edema Musculoskeletal exam: PRESENT: full ROM Neurological exam: PRESENT: alert, awake, CN II-XII grossly intact Skin exam: PRESENT: normal color. ABSENT: urticaria, vesicles Results Laboratory Results: 05/30/19 20:00 05/30/19 20:00 05/30/19 21:00 Urine Color YELLOW Urine Appearance CLEAR Urine pH 6.0 Ur Specific [place] 1.013 Urine Protein NEGATIVE Urine Glucose (UA) NEGATIVE Urine Ketones NEGATIVE Urine Blood NEGATIVE Urine Nitrite NEGATIVE Ur Leukocyte Esterase NEGATIVE Urine WBC (Auto) 0 Urine RBC (Auto) 1 Assessment & Plan - Diagnosis (1) Diarrhea Qualifiers: Diarrhea type: unspecified type Qualified Code(s): R19.7 - Diarrhea, unspecified Plan: check for C. DIFF pancreatic insufficiency could be the cause trial of pancreatic enzymes prior to meals (2) Persistent vomiting Plan: will schedule EGD likely due to gastroparesis will evaluate for gastric outlet obstruction will try Botox injection Risks, benefits and alternatives are discussed will schedule for tomorrow am - Time Time Spent: 50 to 70 Minutes
[2019-05-31] MEDS ORDERED: PRAMIPEXOLE DI HCL 0.5 MG PO SCH (22:00)
[2019-05-31] MEDS: BUTALB/ACETAMINOPHEN/CAFFEINE 1 TAB EACH PO PRN (22:21)
[2019-06-01] MEDS: MORPHINE SULFATE 10 MG/ML INJ IV PRN ×4 (04:00→19:58)
[2019-06-01] MEDS: PANTOPRAZOLE SODIUM 40 MG TABLET.DR PO SCH ×2 (05:13→11:06)
[2019-06-01] MEDS: BUTALB/ACETAMINOPHEN/CAFFEINE 1 TAB EACH PO PRN ×2 (07:20→15:23)
[2019-06-01] MEDS: ONDANSETRON HCL INJ/PF 4 MG/2 ML SDV IV PRN ×3 (07:20→20:04)
[2019-06-01] MEDS ORDERED: (PENDING PHARMACY ID) (Mirtazapine [Mirtazapine] 45 MG) PO SCH (08:00)
[2019-06-01] MEDS: INSULIN LISPRO 100 UNIT/ML 3 ML VIAL SUBCUT SCH ×4 (08:49→21:45)
[2019-06-01] MEDS ORDERED: ONABOTULINUMTOXINA INJ/PF 100 UNIT SDV IJ ONE (09:00)
[2019-06-01] MEDS ORDERED: NALOXONE HCL INJ/PF 0.4 MG/1 ML SDV ONE (09:53)
[2019-06-01] MEDS ORDERED: GLUCAGON,HUMAN RECOMB 1 MG INJ ONE (09:53)
[2019-06-01] MEDS ORDERED: DIPHENHYDRAMINE HCL 50 MG/ML VIAL ONE (09:53)
[2019-06-01] MEDS ORDERED: ONDANSETRON HCL INJ/PF 4 MG/2 ML SDV ONE (09:53)
[2019-06-01] MEDS ORDERED: MIDAZOLAM 2 MG/2 ML INJ ONE (09:53)
[2019-06-01] MEDS ORDERED: FENTANYL CITRATE INJ/PF 100 MCG/2 ML AMPUL ONE (09:53)
[2019-06-01] MEDS ORDERED: FLUMAZENIL INJ 0.5 MG/5 ML VIAL ONE (09:53)
[2019-06-01] MEDS ORDERED: EPINEPHRINE INJ 1 MG/10 ML DISP.SYRIN ONE (09:53)
--- NOTE | 2019-06-01 10:32 | Operative Report ---
Operative Report DATE OF SURGERY: 06/01/19 Operative Report: The risks benefits and alternatives of the procedure explained to the patient in detail and informed consent is obtained.A GIF Olympus video scope was inserted into the patient's mouth and hypopharynx, the esophagus is identified intubated and insufflated, the scope was then advanced through the esophagus stomach and duodenum, retroflexion maneuver is done ,the esophagus stomach and first and second portions of the duodenum examined PREOPERATIVE DIAGNOSIS: Nausea vomiting possible gastroparesis POSTOPERATIVE DIAGNOSIS: Gastritis status post biopsy. 1 to 2 units of Botox injected to the gastric outlet in 4 mL's of fluid OPERATION: EGD with submucosal injection. EGD with biopsy SURGEON: ZANE GONZALEZ ANESTHESIA: Moderate Sedation - 2 mg of Versed, 25 mcg of fentanyl. Conscious sedation monitoring time 30 minutes. TISSUE REMOVED OR ALTERED: As noted above. COMPLICATIONS: None. ESTIMATED BLOOD LOSS: None. INTRAOPERATIVE FINDINGS: As noted above. PROCEDURE: Patient tolerated the procedure well. No immediate postprocedure complications are noted. Patient is sent back to her room in good condition. No gastric outlet obstruction is noted No peptic ulcer disease injection of Botox to help with gastroparesis No bleeding noted, no ulcers noted Resume regular diet as tolerated Resume previous activity level Trial of erythromycin as noted Would avoid Reglan due to tardive dyskinesia Follow-up as outpatient
[2019-06-01] MEDS: LISINOPRIL 10 MG TABLET PO SCH ×2 (11:02→11:05)
[2019-06-01] MEDS: MIRTAZAPINE 15 MG TABLET PO SCH (11:05)
[2019-06-01] MEDS: SITAGLIPTIN PHOSPHATE 50 MG TABLET PO SCH (11:05)
[2019-06-01] MEDS: PRAMIPEXOLE DI-HCL 0.5 MG TABLET PO SCH ×2 (11:07→17:14)
[2019-06-01] MEDS: 1/2 NORMAL SALINE 1,000 ML IV PRN (16:00)
--- NOTE | 2019-06-01 17:21 | PDOC PROGRESS REPORT ---
Subjective Progress Note for:: 06/01/19 Subjective:: Patient seen by the bedside, she had EGD done today found to have gastritis Reason For Visit: PERSISTENT VOMITING Physical Exam Vital Signs: Temp Pulse Resp BP Pulse Ox 98.2 F 79 18 101/58 L 94 06/01/19 11:30 06/01/19 11:30 06/01/19 11:30 06/01/19 11:30 06/01/19 11:30 Intake & Output 05/31/19 06/01/19 06/02/19 06:59 06:59 06:59 Intake Total 1452 2622 100 Balance 1452 2622 100 Weight 74.6 kg 78.9 kg General appearance: PRESENT: no acute distress Eye exam: PRESENT: PERRLA Respiratory exam: PRESENT: clear to auscultation isak Cardiovascular exam: PRESENT: +S1, +S2 GI/Abdominal exam: PRESENT: soft Neurological exam: PRESENT: alert, CN II-XII grossly intact Results Laboratory Results: 05/30/19 20:00 05/30/19 20:00 Assessment & Plan - Diagnosis (1) Acute gastroenteritis Is this a current diagnosis for this admission?: Yes (2) Dehydration Is this a current diagnosis for this admission?: Yes (3) T2DM (type 2 diabetes mellitus) Qualifiers: Diabetes mellitus technician terminal and repeater insulin use: without half-way use Diabetes mellitus complication status: with hyperglycemia Qualified Code(s): E11.65 - Type 2 diabetes mellitus with hyperglycemia Is this a current diagnosis for this admission?: Yes (4) Acute gastritis Qualifiers: Gastritis type: other gastritis Gastritis bleeding: without bleeding Qualified Code(s): K29.00 - Acute gastritis without bleeding Is this a current diagnosis for this admission?: Yes - Time Time Spent with patient: 15-24 minutes
[2019-06-02] MEDS: ONDANSETRON HCL INJ/PF 4 MG/2 ML SDV IV PRN ×4 (00:04→14:04)
[2019-06-02] MEDS: MORPHINE SULFATE 10 MG/ML INJ IV PRN ×6 (00:04→22:21)
[2019-06-02] MEDS: PANTOPRAZOLE SODIUM 40 MG TABLET.DR PO SCH ×2 (05:10→11:18)
[2019-06-02] MEDS: INSULIN LISPRO 100 UNIT/ML 3 ML VIAL SUBCUT SCH ×4 (08:28→22:22)
[2019-06-02] MEDS: LISINOPRIL 10 MG TABLET PO SCH ×2 (10:53→11:00)
[2019-06-02] MEDS: SITAGLIPTIN PHOSPHATE 50 MG TABLET PO SCH (10:58)
[2019-06-02] MEDS: PRAMIPEXOLE DI-HCL 0.5 MG TABLET PO SCH ×2 (10:59→17:22)
[2019-06-02] MEDS: TRAMADOL HCL 50 MG TABLET PO PRN ×2 (11:00→19:01)
[2019-06-02] MEDS: MIRTAZAPINE 15 MG TABLET PO SCH (11:00)
[2019-06-02] MEDS: 1/2 NORMAL SALINE 1,000 ML IV PRN ×2 (12:44→23:19)
--- NOTE | 2019-06-02 21:57 | PDOC DISCHARGE SUMMARY ---
Impression - Admit/DC Date/PCP Admission Date/Primary Care Provider: 05/30/19 15:55 ROSLYN TOLEDO MD Discharge Date: 06/03/19 - Discharge Diagnosis (1) Acute gastroenteritis Is this a current diagnosis for this admission?: Yes (2) Dehydration Is this a current diagnosis for this admission?: Yes (3) T2DM (type 2 diabetes mellitus) Is this a current diagnosis for this admission?: Yes (4) Acute gastritis Is this a current diagnosis for this admission?: Yes - Additional Information Referrals: [facility] [Outside] - 06/03/19 ROSLYN TOLEDO MD [Primary Care Provider] - Follow up as needed (PATIENT STATES SHE WILL MAKE OWN FOLLOW UP APPT.) Home Medications: Pramipexole Di-HCl [Pramipexole Dihydrochloride] 0.5 mg PO Q12 01/13/19 Pantoprazole Sodium [Protonix [address] Tablet] 40 mg PO DAILY #90 tablet. 01/19/19 Buprenorphine [Butrans] 1 patch TOP .QWEEKLY MDD CANT REMEMBER WHAT DAY 05/18/19 Mirtazapine 45 mg PO QAM 05/18/19 Tramadol HCl [Ultram 50 mg Tablet] 50 mg PO Q8HP PRN 05/18/19 Lisinopril [Prinivil 10 mg Tablet] 10 mg PO DAILY #90 tablet 05/23/19 Sitagliptin Phosphate [Januvia] 100 mg PO DAILY #90 tablet 05/23/19 History of Present Illiness History of Present Illness: ALANA ROMERO is a 78 year old female, She came to the office for evaluation of vomiting and diarrhea this is a recurrent problem for this patient she was evaluated multiple times for the same problem with upper endoscopy, nuclear medicine gastric emptying time, she has diabetes mellitus not compliant with her diabetes care, she lives by herself, she was admitted for further evaluation and more importantly to prevent dehydration because she said she is not able to keep any food down, she has been vomiting and she also complained of profuse watery stool Hospital Course Hospital Course: Patient was admitted for the management of persistent vomiting, diarrhea, she was treated with IV fluid, she was seen by GI Dr. Westbrook she underwent upper endoscopy, she was found to have nonspecific gastritis patient respond to treatment she feels better she is a diabetic, she is not adherent with her medication, she has presented in this fashion couple of times, with vomiting and diarrhea that requires IV fluid therapy. She was again advised of the need for compliance with recommended medical regimen Physical Exam Vital Signs: Temp Pulse Resp BP Pulse Ox 97.6 F 82 18 113/70 97 06/02/19 14:52 06/02/19 14:52 06/02/19 14:52 06/02/19 14:52 06/02/19 14:52 Intake & Output 06/01/19 06/02/19 06/03/19 06:59 06:59 06:59 Intake Total 2622 1900 480 Output Total 1520 Balance 2622 1900 -1040 Weight 78.9 kg 77.3 kg General appearance: PRESENT: no acute distress Eye exam: PRESENT: PERRLA Respiratory exam: PRESENT: clear to auscultation isak Cardiovascular exam: PRESENT: +S1, +S2 GI/Abdominal exam: PRESENT: soft Neurological exam: PRESENT: alert Results Laboratory Results: WBC 11.8 10^3/uL (4.0-10.5) H 05/30/19 20:00 RBC 4.46 10^6/uL (3.72-5.28) 05/30/19 20:00 Hgb 11.8 g/dL (12.0-15.5) L 05/30/19 20:00 Hct 35.4 % (36.0-47.0) L 05/30/19 20:00 MCV 79 fl (80-97) L 05/30/19 20:00 MCH 26.4 pg (27.0-33.4) L 05/30/19 20:00 MCHC 33.2 g/dL (32.0-36.0) 05/30/19 20:00 RDW 15.4 % (11.5-14.0) H 05/30/19 20:00 Plt Count 418 10^3/uL (150-450) 05/30/19 20:00 Lymph % (Auto) 21.7 % (13-45) 05/30/19 20:00 [place] % (Auto) 6.1 % (3-13) 05/30/19 20:00 Eos % (Auto) 1.0 % (0-6) 05/30/19 20:00 Baso % (Auto) 0.3 % (0-2) 05/30/19 20:00 Absolute Neuts (auto) 8.4 10^3/uL (1.7-8.2) H 05/30/19 20:00 Absolute Lymphs (auto) 2.6 10^3/uL (0.5-4.7) 05/30/19 20:00 Absolute Monos (auto) 0.7 10^3/uL (0.1-1.4) 05/30/19 20:00 Absolute Eos (auto) 0.1 10^3/uL (0.0-0.6) 05/30/19 20:00 Absolute Basos (auto) 0.0 10^3/uL (0.0-0.2) 05/30/19 20:00 Seg Neutrophils % 70.9 % (42-78) 05/30/19 20:00 Sodium 132.5 mmol/L (137-145) L 05/30/19 20:00 Potassium 4.0 mmol/L (3.6-5.0) 05/30/19 20:00 Chloride 100 mmol/L (98-107) 05/30/19 20:00 Carbon Dioxide 20 mmol/L (22-30) L 05/30/19 20:00 Anion Gap 13 (5-19) 05/30/19 20:00 BUN 10 mg/dL (7-20) 05/30/19 20:00 Creatinine 0.72 mg/dL (0.52-1.25) 05/30/19 20:00 Est GFR ( Amer) > 60 (>60) 05/30/19 20:00 Est GFR (MDRD) Non-Af > 60 (>60) 05/30/19 20:00 Glucose 175 mg/dL (75-110) H 05/30/19 20:00 POC Glucose 178 mg/dL (70-110) H 06/02/19 21:09 Hemoglobin A1c % 8.1 % (4.7-6.0) H 05/30/19 20:00 Calcium 9.3 mg/dL (8.4-10.2) 05/30/19 20:00 Total Bilirubin 0.4 mg/dL (0.2-1.3) 05/30/19 20:00 Direct Bilirubin 0.3 mg/dL (0.0-0.4) 05/30/19 20:00 Neonat Total Bilirubin Not Reportable 05/30/19 20:00 Neonat Direct Bilirubin Not Reportable 05/30/19 20:00 Neonat Indirect Bili Not Reportable 05/30/19 20:00 AST 23 U/L (14-36) 05/30/19 20:00 ALT 18 U/L (<35) 05/30/19 20:00 Alkaline Phosphatase 82 U/L (38-126) 05/30/19 20:00 Total Protein 7.1 g/dL (6.3-8.2) 05/30/19 20:00 Albumin 3.7 g/dL (3.5-5.0) 05/30/19 20:00 Urine Color YELLOW 05/30/19 21:00 Urine Appearance CLEAR 05/30/19 21:00 Urine pH 6.0 (5.0-9.0) 05/30/19 21:00 Ur Specific [place] 1.013 05/30/19 21:00 Urine Protein NEGATIVE mg/dL (NEGATIVE) 05/30/19 21:00 Urine Glucose (UA) NEGATIVE mg/dL (NEGATIVE) 05/30/19 21:00 Urine Ketones NEGATIVE mg/dL (NEGATIVE) 05/30/19 21:00 Urine Blood NEGATIVE (NEGATIVE) 05/30/19 21:00 Urine Nitrite NEGATIVE (NEGATIVE) 05/30/19 21:00 Urine Bilirubin NEGATIVE (NEGATIVE) 05/30/19 21:00 Urine Urobilinogen NEGATIVE mg/dL (<2.0) 05/30/19 21:00 Ur Leukocyte Esterase NEGATIVE (NEGATIVE) 05/30/19 21:00 Urine WBC (Auto) 0 /HPF 05/30/19 21:00 Urine RBC (Auto) 1 /HPF 05/30/19 21:00 Squamous Epi Cells Auto 1 /HPF 05/30/19 21:00 Urine Mucus (Auto) RARE /LPF 05/30/19 21:00 Urine Ascorbic Acid NEGATIVE (NEGATIVE) 05/30/19 21:00 Plan Time Spent: Less than 30 Minutes Stroke Is this a Stroke Patient?: No Acute Heart Failure - Is this a Heart Failure Patient?: No
[2019-06-02] MEDS: BUTALB/ACETAMINOPHEN/CAFFEINE 1 TAB EACH PO PRN (23:19)
[2019-06-03] MEDS: MORPHINE SULFATE 10 MG/ML INJ IV PRN (02:27)
[2019-06-03] MEDS: PANTOPRAZOLE SODIUM 40 MG TABLET.DR PO SCH (05:12)
[2019-06-03] MEDS: TRAMADOL HCL 50 MG TABLET PO PRN (08:04)
[2019-06-03] MEDS: INSULIN LISPRO 100 UNIT/ML 3 ML VIAL SUBCUT SCH (08:20)
[2019-06-03 09:00] VITALS: BP 133/74
== END 2019-06-03 09:53 | disposition home health service (06) ==
LOC: ER 13:34 → EH 15:55 → 5 22:03
PROVIDERS: ADMIT Internal Medicine; ATTEND Internal Medicine
DX: K52.9 Noninfective gastroenteritis and colitis, unspecified (principal); K29.50 Unspecified chronic gastritis without bleeding; E86.0 Dehydration; E11.65 Type 2 diabetes mellitus with hyperglycemia; I10 Essential (primary) hypertension; K21.9 Gastro-esophageal reflux disease without esophagitis; F32.9 Major depressive disorder, single episode, unspecified; M13.88 Other specified arthritis, other site; M13.812 Other specified arthritis, left shoulder; M13.811 Other specified arthritis, right shoulder; Z79.899 Other long term (current) drug therapy; Z60.2 Problems related to living alone; Z91.14 Patient's other noncompliance with medication regimen; Z85.41 Personal history of malignant neoplasm of cervix uteri; Z85.42 Personal history of malignant neoplasm of other parts of uterus; Z98.51 Tubal ligation status; Z87.891 Personal history of nicotine dependence; Z79.84 Long term (current) use of oral hypoglycemic drugs
CPT/HCPCS: 99284; 43236; 43239; 36415; 82962 ×4; 85025; 80076; 80048; 81001; 83036; 88342 ×2; 88305 ×2; G0378 ×6; J2250; A9270 ×22; J3010; J2270 ×5; J2405 ×3; J0171; J1200; J1610; J1815; J2310; J3490

== ENCOUNTER 2019-06-30 16:07 | Inpatient (IN) | payer MEDICARE, MEDICAID ==
--- NOTE | 2019-06-30 16:36 | ER Document Report ---
ED Medical Screen (RME) - General Chief Complaint: Direct Admit/Private MD Stated Complaint: VOMITING,DIARRHEA/DIRECT ADMIT Time Seen by Provider: 06/30/19 16:34 Primary Care Provider: ROSLYN TOLEDO MD [Primary Care Provider] - Follow up as needed TRAVEL OUTSIDE OF THE [place] IN LAST 30 DAYS: No - HPI Notes: 06/30/19 16:35 Patient is an 78-year-old female who presents as a direct admit per Dr. Toledo for nausea vomiting for the past 5 days. She does present with orders that are to be placed by ED staff. No other concerns or complaints at this time. I have treated and performed a rapid initial assessment of this patient. A comprehensive ED assessment and evaluation of the patient, analysis of test results and completion of medical decision making process will be conducted by additional ED providers. PHYSICAL EXAMINATION: GENERAL: Well-appearing, well-nourished and in no acute distress. A&Ox4. Answers questions appropriately. - Related Data Allergies/Adverse Reactions: No Known Allergies Allergy (Unverified 05/18/19 16:11) Past Medical History - Past Medical History Cardiac Medical History: Reports: Hx Hypercholesterolemia, Hx Hypertension Pulmonary Medical History: Reports: Hx COPD Denies: Hx Bronchitis Neurological Medical History: Denies: Hx Seizures, Hx Parkinson's Disease Endocrine Medical History: Reports: Hx Diabetes Mellitus Type 2 - "borderline" Renal/ Medical History: Reports: Hx Ovarian Cysts. Denies: Hx Peritoneal Dialysis Malignancy Medical History: Reports: Hx Cervical Cancer - uterine cancer GI Medical History: Reports: Hx Gastroesophageal Reflux Disease Musculoskeltal Medical History: Reports Hx Arthritis - back, shoulders, and ne ck, Reports Hx Musculoskeletal Deformity - Chronic back pain arthritis and back shoulder or neck Psychiatric Medical History: Reports: Hx Bipolar Disorder, Hx Depression Past Surgical History: Reports: Hx Section, Hx Gynecologic Surgery, Hx Orthopedic Surgery, Hx Tubal Ligation. Denies: Hx Hysterectomy - Immunizations Immunizations up to date: Yes Hx Diphtheria, Pertussis, Tetanus Vaccination: Yes Physical Exam - Vital signs Vitals: Temp Pulse Resp BP Pulse Ox 98.0 F 100 18 147/99 H 91 L 06/30/19 16:25 06/30/19 16:25 06/30/19 16:25 06/30/19 16:25 06/30/19 16:25 Course - Vital Signs Vital signs: Temp Pulse Resp BP Pulse Ox 98.0 F 100 18 147/99 H 91 L 06/30/19 16:25 06/30/19 16:25 06/30/19 16:25 06/30/19 16:25 06/30/19 16:25 Doctor's Discharge - Discharge Referrals: ROSLYN TOLEDO MD [Primary Care Provider] - Follow up as needed
--- NOTE | 2019-06-30 19:28 | RADIOLOGY REPORT (SQ) ---
EXAM DESCRIPTION: CHEST 2 VIEWS COMPLETED DATE/TIME: 06/30/2019 6:29 pm REASON FOR STUDY: persistant vomiting /diarrhea, t2dm COMPARISON: 05/18/2019 EXAM PARAMETERS: NUMBER OF VIEWS: two views TECHNIQUE: Digital Frontal and Lateral radiographic views of the chest acquired. RADIATION DOSE: NA LIMITATIONS: none FINDINGS: LUNGS AND PLEURA: No opacities, masses or pneumothorax. No pleural effusion. MEDIASTINUM AND HILAR STRUCTURES: No masses or contour abnormalities. HEART AND VASCULAR STRUCTURES: Heart normal size. No evidence for failure. BONES: No acute findings. HARDWARE: None in the chest. OTHER: No other significant finding. IMPRESSION: NO ACUTE RADIOGRAPHIC FINDING IN THE CHEST. TECHNICAL DOCUMENTATION: JOB ID: [id number] [employer]- All Rights Reserved Reading location - IP/workstation name: [email or web address]
[2019-06-30] MEDS ORDERED: NORMAL SALINE 1000 ML 1,000 ML IV PRN (19:57)
[2019-06-30 20:01] LABS: ABSOLUTE BASOPHILS # (AUTO) 0.1 10^3/uL (0.0-0.2); ABSOLUTE EOSINOPHILS # (AUTO) 0.1 10^3/uL (0.0-0.6); ABSOLUTE LYMPHOCYTES (AUTO) 2.2 10^3/uL (0.5-4.7); ABSOLUTE MONOCYTES (AUTO) 0.8 10^3/uL (0.1-1.4); ABSOLUTE NEUT (AUTO) 7.8 10^3/uL (1.7-8.2); BASOPHILS % (AUTO) 0.5 % (0-2); EOSINOPHILS % (AUTO) 0.5 % (0-6); HEMATOCRIT 41.3 % (36.0-47.0); HEMOGLOBIN 13.1 g/dL (12.0-15.5); LYMPHOCYTES % (AUTO) 20.5 % (13-45); MEAN CORPUSCULAR HEMOGLOBIN 26.6 pg (27.0-33.4); MEAN CORPUSCULAR HGB CONC 31.8 g/dL (32.0-36.0); MEAN CORPUSCULAR VOLUME 84 fl (80-97); MONOCYTES % (AUTO) 7.6 % (3-13); PLATELET COUNT 388 10^3/uL (150-450); RED BLOOD COUNT 4.94 10^6/uL (3.72-5.28); RED CELL DISTRIBUTION WIDTH 16.1 % (11.5-14.0); SEGMENTED NEUTROPHILS % (AUTO) 70.9 % (42-78); TOTAL CELLS COUNTED % (AUTO) 100 %
[2019-06-30 20:03] LABS: ALBUMIN 4.2 g/dL (3.5-5.0); ALKALINE PHOSPHATASE 79 U/L (38-126); ANION GAP 13 (5-19); ASPARTATE AMINO TRANSFERASE 33 U/L (14-36); BILIRUBIN,DIRECT 0.3 mg/dL (0.0-0.4); BILIRUBIN,TOTAL 0.6 mg/dL (0.2-1.3); BLOOD UREA NITROGEN 20 mg/dL (7-20); CALCIUM 10.1 mg/dL (8.4-10.2); CARBON DIOXIDE 23 mmol/L (22-30); CHLORIDE 102 mmol/L (98-107); GLUCOSE 118 mg/dL (75-110); POTASSIUM 3.3 mmol/L (3.6-5.0); TOTAL PROTEIN 7.6 g/dL (6.3-8.2)
[2019-06-30 20:55] LABS: APPEARANCE,URINE SLIGHTLY-CLOUDY; BILIRUBIN,URINE NEGATIVE (NEGATIVE); COLOR,URINE YELLOW; GLUCOSE, URINE NEGATIVE (NEGATIVE); KETONES,URINE TRACE mg/dL (NEGATIVE); LEUKOCYTE ESTERASE,URINE NEGATIVE (NEGATIVE); NITRITE,URINE NEGATIVE (NEGATIVE); PROTEIN,URINE 30 mg/dL (NEGATIVE); URINE SPECIFIC GRAVITY 1.021; UROBILINOGEN,URINE NEGATIVE mg/dL (<2.0)
[2019-06-30] MEDS: HYDROMORPHONE HCL INJ/PF 2 MG/ML AMPULE IV PRN (21:12)
[2019-06-30] MEDS: ENOXAPARIN SODIUM INJ 40 MG/0.4 ML DISP.SYRIN SUBCUT SCH (21:12)
--- NOTE | 2019-06-30 21:19 | PDOC H&P ---
History of Present Illness Admission Date/PCP: 06/30/19 17:11 ROSLYN TOLEDO MD History of Present Illness: ALANA ROMERO is a 78 year old female, Patient came to the office for evalu ation of persistent vomiting not able to keep any food down, she was just recently admitted in this hospital on 05/30/2019 when she presented in a similar fashion with vomiting diarrhea, not able to keep any food down at the time she was seen by GI Dr. Westbrook she underwent upper endoscopy, she was found to have nonspecific gastritis. Patient is of advanced age, she is 78 years old she lives by herself she had a 2D echo done on the 05/18/2023 evaluation of possible CHF, a 2D echo demonstrated normal-sized left ventricle the estimated ejection fraction of left ventricle was 65%, the Doppler assessment suggests pseudonormalization of left ventricle associated with grade 2 diastolic dysfunction of the left ventricle there was no significant valvular heart disease. Patient has had multiple hospital admission for evaluation of GI symptoms of vomiting. Past Medical History Cardiac Medical History: Reports: Hyperlipidema, Hypertension Pulmonary Medical History: Reports: Chronic Obstructive Pulmonary Disease (COPD) Endocrine Medical History: Reports: Diabetes Mellitus Type 2 - "borderline" Malignancy Medical History: Reports: Cervical Cancer - uterine cancer GI Medical History: Reports: Gastroesophageal Reflux Disease Musculoskeltal Medical History: Reports: Arthritis - back, shoulders, and neck Psychiatric Medical History: Reports: Bipolar Disorder, Depression Past Surgical History Past Surgical History: Reports: Section, Orthopedic Surgery, Tubal Ligation Social History Smoking Status: Former Smoker Frequency of Alcohol Use: None Hx Recreational Drug Use: No Drugs: None Hx Prescription Drug Abuse: No Family History Family History: Reviewed & Not Pertinent Parental Family History Reviewed: Yes Children Family History Reviewed: Yes Sibling(s) Family History Reviewed.: Yes Medication/Allergy Home Medications: Pramipexole Di-HCl [Pramipexole Dihydrochloride] 0.5 mg PO QID 01/13/19 Pantoprazole Sodium [Protonix [address] Tablet] 40 mg PO DAILY #90 tablet. 01/19/19 Buprenorphine [Butrans] 1 patch TOP .QWEEKLY MDD CANT REMEMBER WHAT DAY 05/18/19 Mirtazapine 45 mg PO QHS 05/18/19 Tramadol HCl [Ultram 50 mg Tablet] 50 mg PO Q8HP PRN 05/18/19 Lisinopril [Prinivil 10 mg Tablet] 10 mg PO DAILY #90 tablet 05/23/19 Sitagliptin Phosphate [Januvia] 100 mg PO DAILY #90 tablet 05/23/19 Aspirin/Acetaminophen/Caffeine [Excedrin Migraine Caplet] 1 each PO DAILYP PRN 07/01/19 Atorvastatin Calcium [Lipitor 10 mg Tablet] 10 mg PO DAILY 07/01/19 Megestrol Acetate [Megace Rika 400 mg/10 ml Udcup] 400 mg PO TID 07/01/19 Meloxicam [Mobic] 7.5 mg PO DAILY 07/01/19 Ondansetron [Zofran Odt 4 mg Tablet] 8 mg PO BID 07/01/19 Valsartan/Hydrochlorothiazide [Valsartan-Hctz 160-25 mg Tab] 1 each PO DAILY 07/01/19 Allergies/Adverse Reactions: No Known Allergies Allergy (Unverified 05/18/19 16:11) Review of Systems Constitutional: PRESENT: fatigue Eyes: ABSENT: visual disturbances Ears: ABSENT: hearing changes Cardiovascular: ABSENT: chest pain, dyspnea on exertion, edema, orthropnea, palp itations Respiratory: ABSENT: cough, hemoptysis Gastrointestinal: PRESENT: vomiting Genitourinary: ABSENT: dysuria, hematuria Musculoskeletal: ABSENT: joint swelling Integumentary: ABSENT: rash, wounds Neurological: ABSENT: abnormal gait, abnormal speech, confusion, dizziness, focal weakness, syncope Psychiatric: ABSENT: anxiety, depression, homidical ideation, suicidal ideation Endocrine: ABSENT: cold intolerance, heat intolerance, menstrual abnormalities, polydipsia, polyuria Hematologic/Lymphatic: ABSENT: easy bleeding, easy bruising, lymphadenopathy Physical Exam Vital Signs: Temp Pulse Resp BP Pulse Ox 98.4 F 85 16 122/62 100 06/30/19 17:35 06/30/19 17:35 06/30/19 17:35 06/30/19 17:35 06/30/19 17:35 Intake & Output 06/29/19 06/30/19 07/01/19 06:59 06:59 06:59 Weight 72.2 kg General appearance: PRESENT: no acute distress, well-developed, well-nourished Head exam: PRESENT: atraumatic, normocephalic Eye exam: PRESENT: conjunctiva pink, EOMI, PERRLA Ear exam: PRESENT: normal external ear exam Mouth exam: PRESENT: moist, tongue midline Neck exam: PRESENT: full ROM Respiratory exam: PRESENT: clear to auscultation isak Cardiovascular exam: PRESENT: RRR, +S1, +S2 Pulses: PRESENT: normal dorsalis pedis pul, +2 pedal pulses bilateral Vascular exam: PRESENT: normal capillary refill GI/Abdominal exam: PRESENT: normal bowel sounds, soft Rectal exam: PRESENT: deferred Neurological exam: PRESENT: alert, awake, oriented to person, oriented to place, oriented to time, oriented to situation, CN II-XII grossly intact Psychiatric exam: PRESENT: appropriate affect, normal mood Skin exam: PRESENT: dry, intact, warm Results Laboratory Results: 06/30/19 19:50 06/30/19 19:31 06/30/19 06/30/19 06/30/19 19:31 19:50 20:30 WBC 11.0 H RBC 4.94 Hgb 13.1 Hct 41.3 MCV 84 MCH 26.6 L MCHC 31.8 L RDW 16.1 H Plt Count 388 Seg Neutrophils % 70.9 Sodium 138.3 Potassium 3.3 L Chloride 102 Carbon Dioxide 23 Anion Gap 13 BUN 20 Creatinine 0.75 Est GFR ( Amer) > 60 Glucose 118 H Calcium 10.1 Total Bilirubin 0.6 AST 33 Alkaline Phosphatase 79 Total Protein 7.6 Albumin 4.2 Urine Color YELLOW Urine Appearance SLIGHTLY-CLOUDY Urine pH 6.0 Ur Specific [place] 1.021 Urine Protein 30 H Urine Glucose (UA) NEGATIVE Urine Ketones TRACE H Urine Blood SMALL H Urine Nitrite NEGATIVE Ur Leukocyte Esterase NEGATIVE Urine WBC (Auto) 2 Urine RBC (Auto) 1 Impressions: Chest X-Ray 06/30/19 00:00 IMPRESSION: NO ACUTE RADIOGRAPHIC FINDING IN THE CHEST. Assessment & Plan - Diagnosis (1) Intractable vomiting Qualifiers: Vomiting type: unspecified Nausea presence: with nausea Qualified Co de(s): R11.2 - Nausea with vomiting, unspecified Is this a current diagnosis for this admission?: Yes Plan: Patient is admitted for management essentially to prevent dehydration, the exact etiology of the vomiting is not clear, she has presented many times with vomiting extensively evaluated, no new ideas on how to proceed with her vomiting problem (2) T2DM (type 2 diabetes mellitus) Qualifiers: Diabetes mellitus remote computer terminal operator insulin use: without detention use Diabetes bhavana estradaitus complication status: without complication Qualified Code(s): E11.9 - Type 2 diabetes mellitus without complications Is this a current diagnosis for this admission?: Yes Plan: Continue treatment
[2019-07-01] MEDS: HYDROMORPHONE HCL INJ/PF 2 MG/ML AMPULE IV PRN ×5 (01:45→21:37)
[2019-07-01] MEDS: POTASSI CL 40 MEQ/NS 1L 1,000 ML IV PRN ×2 (06:29→17:57)
[2019-07-01] MEDS: ENOXAPARIN SODIUM INJ 40 MG/0.4 ML DISP.SYRIN SUBCUT SCH (10:35)
--- NOTE | 2019-07-01 22:22 | PDOC PROGRESS REPORT ---
Subjective Progress Note for:: 07/01/19 Subjective:: Patient seen by the bedside, she continues to require IV fluid therapy, she is asking for antiemetics Reason For Visit: PERSISTANT VOMITING AND DIARRHEA, T2 DM Physical Exam Vital Signs: Temp Pulse Resp BP Pulse Ox 97.5 F 97 16 113/55 L 98 07/01/19 20:09 07/01/19 20:09 07/01/19 20:09 07/01/19 20:09 07/01/19 20:09 Intake & Output 06/30/19 07/01/19 07/02/19 06:59 06:59 06:59 Intake Total 1620 1100 Balance 1620 1100 Weight 75.6 kg 75.6 kg General appearance: PRESENT: no acute distress Eye exam: PRESENT: PERRLA Respiratory exam: PRESENT: clear to auscultation isak Cardiovascular exam: PRESENT: +S1, +S2 GI/Abdominal exam: PRESENT: soft Neurological exam: PRESENT: alert Results Laboratory Results: 06/30/19 19:50 06/30/19 19:31 06/30/19 20:30 Clean Catch Midstream Urine Culture - Final Mixed Urogenital Maribeth Impressions: Chest X-Ray 06/30/19 00:00 IMPRESSION: NO ACUTE RADIOGRAPHIC FINDING IN THE CHEST. Assessment & Plan - Diagnosis (1) Intractable vomiting Qualifiers: Vomiting type: unspecified Nausea presence: with nausea Qualified Code(s): R11.2 - Nausea with vomiting, unspecified Is this a current diagnosis for this admission?: Yes (2) T2DM (type 2 diabetes mellitus) Qualifiers: Diabetes mellitus half-way insulin use: without salvage determiner use Diabetes mellitus complication status: without complication Qualified Code(s): E11.9 - Type 2 diabetes mellitus without complications Is this a current diagnosis for this admission?: Yes - Time Time Spent with patient: 25-34 minutes
[2019-07-02] MEDS: HYDROMORPHONE HCL INJ/PF 2 MG/ML AMPULE IV PRN ×6 (01:46→23:45)
[2019-07-02] MEDS: POTASSI CL 40 MEQ/NS 1L 1,000 ML IV PRN ×3 (04:32→23:46)
[2019-07-02] MEDS: ENOXAPARIN SODIUM INJ 40 MG/0.4 ML DISP.SYRIN SUBCUT SCH (09:03)
[2019-07-02] MEDS ORDERED: (PENDING PHARMACY ID) (Aspirin/Acetaminophen/Caffeine [Excedrin Migraine Caplet] 1 EACH) PO PRN (14:14)
[2019-07-02] MEDS ORDERED: (PENDING PHARMACY ID) (Buprenorphine [Butrans] 1 PATCH) TOP SCH (14:15)
[2019-07-02] MEDS: ONDANSETRON HCL INJ/PF 4 MG/2 ML SDV IV PRN (15:30)
[2019-07-02] MEDS: TRAMADOL HCL 50 MG TABLET PO PRN (15:30)
--- NOTE | 2019-07-02 16:08 | PDOC PROGRESS REPORT ---
Subjective Progress Note for:: 07/02/19 Subjective:: Patient seen by the bedside, she complained of nausea, no apparent vomiting. Reason For Visit: PERSISTANT VOMITING AND DIARRHEA, T2 DM Physical Exam Vital Signs: Temp Pulse Resp BP Pulse Ox 98.0 F 91 21 H 133/67 H 99 07/02/19 11:44 07/02/19 11:44 07/02/19 11:44 07/02/19 11:44 07/02/19 11:44 Intake & Output 07/01/19 07/02/19 07/03/19 06:59 06:59 06:59 Intake Total 1620 2580 1240 Balance 1620 2580 1240 Weight 75.6 kg 75.2 kg General appearance: PRESENT: no acute distress Eye exam: PRESENT: PERRLA Respiratory exam: PRESENT: clear to auscultation isak Cardiovascular exam: PRESENT: +S1, +S2 GI/Abdominal exam: PRESENT: soft Results Laboratory Results: 06/30/19 19:50 06/30/19 19:31 06/30/19 20:30 Clean Catch Midstream Urine Culture - Final Mixed Urogenital Maribeth Impressions: Chest X-Ray 06/30/19 00:00 IMPRESSION: NO ACUTE RADIOGRAPHIC FINDING IN THE CHEST. Assessment & Plan - Diagnosis (1) Intractable vomiting Qualifiers: Vomiting type: unspecified Nausea presence: with nausea Qualified Code(s): R11.2 - Nausea with vomiting, unspecified Is this a current diagnosis for this admission?: Yes Plan: Continue symptomatic treatment (2) T2DM (type 2 diabetes mellitus) Qualifiers: Diabetes mellitus long term care pharmacist insulin use: without mcc use Diabetes mellitus complication status: without complication Qualified Code(s): E11.9 - Type 2 diabetes mellitus without complications Is this a current diagnosis for this admission?: Yes - Time Time Spent with patient: 25-34 minutes
[2019-07-02 16:14] LABS: ABSOLUTE BASOPHILS # (AUTO) 0.1 10^3/uL (0.0-0.2); ABSOLUTE MONOCYTES (AUTO) 0.7 10^3/uL (0.1-1.4); TOTAL CELLS COUNTED % (AUTO) 100 %
[2019-07-02 16:20] LABS: ABSOLUTE EOSINOPHILS # (AUTO) 0.3 10^3/uL (0.0-0.6); ABSOLUTE NEUT (AUTO) 5.9 10^3/uL (1.7-8.2); BASOPHILS % (AUTO) 1.3 % (0-2); EOSINOPHILS % (AUTO) 2.8 % (0-6); HEMATOCRIT 32.8 % (36.0-47.0); HEMOGLOBIN 11.3 g/dL (12.0-15.5); MEAN CORPUSCULAR HGB CONC 34.3 g/dL (32.0-36.0); MONOCYTES % (AUTO) 7.7 % (3-13); PLATELET COUNT 351 10^3/uL (150-450); RED BLOOD COUNT 4.18 10^6/uL (3.72-5.28); RED CELL DISTRIBUTION WIDTH 15.6 % (11.5-14.0); SEGMENTED NEUTROPHILS % (AUTO) 66.2 % (42-78); WHITE BLOOD COUNT 8.9 10^3/uL (4.0-10.5)
[2019-07-02 16:22] LABS: MEAN CORPUSCULAR VOLUME 79 fl (80-97)
[2019-07-02 16:34] LABS: ALBUMIN 3.3 g/dL (3.5-5.0); ALKALINE PHOSPHATASE 61 U/L (38-126); ANION GAP 9 (5-19); ASPARTATE AMINO TRANSFERASE 23 U/L (14-36); BILIRUBIN,DIRECT 0.3 mg/dL (0.0-0.4); BILIRUBIN,TOTAL 0.3 mg/dL (0.2-1.3); BLOOD UREA NITROGEN 8 mg/dL (7-20); CALCIUM 8.5 mg/dL (8.4-10.2); CARBON DIOXIDE 20 mmol/L (22-30); CHLORIDE 108 mmol/L (98-107); GLUCOSE 123 mg/dL (75-110); POTASSIUM 4.4 mmol/L (3.6-5.0); TOTAL PROTEIN 6.5 g/dL (6.3-8.2)
[2019-07-02] MEDS: MEGESTROL ACETATE SUSP 400 MG/10 ML UDCUP PO SCH (19:00)
[2019-07-02] MEDS: PRAMIPEXOLE DI-HCL 0.5 MG TABLET PO SCH ×2 (19:00→21:20)
[2019-07-02] MEDS: ONDANSETRON 4 MG TAB.RAPDIS PO SCH (19:00)
[2019-07-02] MEDS: MIRTAZAPINE 15 MG TABLET PO SCH (21:20)
[2019-07-02] MEDS: ATORVASTATIN CALCIUM 10 MG TABLET PO SCH (21:20)
[2019-07-03] MEDS: ONDANSETRON HCL INJ/PF 4 MG/2 ML SDV IV PRN (03:34)
[2019-07-03] MEDS: HYDROMORPHONE HCL INJ/PF 2 MG/ML AMPULE IV PRN ×5 (03:57→20:46)
[2019-07-03 05:09] LABS: ABSOLUTE BASOPHILS # (AUTO) 0.1 10^3/uL (0.0-0.2); ABSOLUTE EOSINOPHILS # (AUTO) 0.2 10^3/uL (0.0-0.6); ABSOLUTE LYMPHOCYTES (AUTO) 1.9 10^3/uL (0.5-4.7); ABSOLUTE MONOCYTES (AUTO) 0.8 10^3/uL (0.1-1.4); BASOPHILS % (AUTO) 0.6 % (0-2); EOSINOPHILS % (AUTO) 2.2 % (0-6); HEMATOCRIT 33.5 % (36.0-47.0); MEAN CORPUSCULAR HEMOGLOBIN 26.1 pg (27.0-33.4); MEAN CORPUSCULAR VOLUME 79 fl (80-97); MONOCYTES % (AUTO) 7.9 % (3-13); PLATELET COUNT 348 10^3/uL (150-450); RED BLOOD COUNT 4.23 10^6/uL (3.72-5.28); RED CELL DISTRIBUTION WIDTH 15.6 % (11.5-14.0); SEGMENTED NEUTROPHILS % (AUTO) 70.3 % (42-78); TOTAL CELLS COUNTED % (AUTO) 100 %; WHITE BLOOD COUNT 9.9 10^3/uL (4.0-10.5)
[2019-07-03] MEDS: PANTOPRAZOLE SODIUM 40 MG TABLET.DR PO SCH (05:21)
[2019-07-03] MEDS: PRAMIPEXOLE DI-HCL 0.5 MG TABLET PO SCH ×4 (09:40→21:40)
[2019-07-03] MEDS: POTASSI CL 40 MEQ/NS 1L 1,000 ML IV PRN ×2 (09:40→23:18)
[2019-07-03] MEDS: VALSARTAN 160 MG TABLET PO SCH (09:40)
[2019-07-03] MEDS: LISINOPRIL 10 MG TABLET PO SCH (09:40)
[2019-07-03] MEDS: SITAGLIPTIN PHOSPHATE 50 MG TABLET PO SCH (09:40)
[2019-07-03] MEDS: MELOXICAM 7.5 MG TABLET PO SCH (09:40)
[2019-07-03] MEDS: MEGESTROL ACETATE SUSP 400 MG/10 ML UDCUP PO SCH ×3 (09:40→17:26)
[2019-07-03] MEDS: ENOXAPARIN SODIUM INJ 40 MG/0.4 ML DISP.SYRIN SUBCUT SCH (09:40)
[2019-07-03] MEDS: HYDROCHLOROTHIAZIDE 25 MG TABLET PO SCH (09:40)
[2019-07-03] MEDS: ONDANSETRON 4 MG TAB.RAPDIS PO SCH ×2 (09:40→17:26)
[2019-07-03] MEDS ORDERED: (PENDING PHARMACY ID) (Valsartan/Hydrochlorothiazide [Valsartan-Hctz 160-25 Mg Tab] 1 EACH PO SCH (10:00)
--- NOTE | 2019-07-03 15:30 | PDOC PROGRESS REPORT ---
Subjective Progress Note for:: 07/03/19 Subjective:: Patient seen by the bedside, she continues to require antiemetics, IV fluid therapy Reason For Visit: PERSISTANT VOMITING AND DIARRHEA, T2 DM Physical Exam Vital Signs: Temp Pulse Resp BP Pulse Ox 98.3 F 92 23 H 125/71 97 07/03/19 11:59 07/03/19 11:59 07/03/19 07:45 07/03/19 11:59 07/03/19 11:59 Intake & Output 07/02/19 07/03/19 07/04/19 06:59 06:59 06:59 Intake Total 2580 4059 1572 Balance 2580 4059 1572 Weight 75.2 kg 74.8 kg General appearance: PRESENT: no acute distress Eye exam: PRESENT: PERRLA Respiratory exam: PRESENT: clear to auscultation isak Cardiovascular exam: PRESENT: +S1, +S2 GI/Abdominal exam: PRESENT: soft Results Laboratory Results: 07/03/19 04:45 07/02/19 16:03 07/02/19 07/02/19 07/03/19 16:03 16:03 04:45 WBC 8.9 9.9 RBC 4.18 4.23 Hgb 11.3 L 11.0 L Hct 32.8 L 33.5 L MCV 79 L D 79 L MCH 27.0 26.1 L MCHC 34.3 33.0 RDW 15.6 H 15.6 H Plt Count 351 348 Seg Neutrophils % 66.2 70.3 Sodium 136.7 L Potassium 4.4 Chloride 108 H Carbon Dioxide 20 L Anion Gap 9 BUN 8 Creatinine 0.50 L Est GFR ( Amer) > 60 Glucose 123 H Calcium 8.5 Total Bilirubin 0.3 AST 23 Alkaline Phosphatase 61 Total Protein 6.5 Albumin 3.3 L Impressions: Chest X-Ray 06/30/19 00:00 IMPRESSION: NO ACUTE RADIOGRAPHIC FINDING IN THE CHEST. Assessment & Plan - Diagnosis (1) Intractable vomiting Qualifiers: Vomiting type: unspecified Nausea presence: with nausea Qualified Code(s): R11.2 - Nausea with vomiting, unspecified Is this a current diagnosis for this admission?: Yes (2) T2DM (type 2 diabetes mellitus) Qualifiers: Diabetes mellitus terminal gauger supervisor insulin use: without [facility] use Diabetes mellitus complication status: without complication Qualified Code(s): E11.9 - Type 2 diabetes mellitus without complications Is this a current diagnosis for this admission?: Yes (3) Abdominal pain Qualifiers: Abdominal location: generalized Qualified Code(s): R10.84 - Generalized abdominal pain Is this a current diagnosis for this admission?: Yes - Time Time Spent with patient: 25-34 minutes - Plan Summary Plan Summary: Continue treatment
[2019-07-03] MEDS: TRAMADOL HCL 50 MG TABLET PO PRN (21:40)
[2019-07-03] MEDS: ATORVASTATIN CALCIUM 10 MG TABLET PO SCH (21:40)
[2019-07-03] MEDS: MIRTAZAPINE 15 MG TABLET PO SCH (21:40)
[2019-07-04] MEDS: HYDROMORPHONE HCL INJ/PF 2 MG/ML AMPULE IV PRN ×4 (00:47→13:21)
[2019-07-04] MEDS: PANTOPRAZOLE SODIUM 40 MG TABLET.DR PO SCH (05:02)
[2019-07-04] MEDS: MEGESTROL ACETATE SUSP 400 MG/10 ML UDCUP PO SCH ×3 (09:05→17:17)
[2019-07-04] MEDS: ENOXAPARIN SODIUM INJ 40 MG/0.4 ML DISP.SYRIN SUBCUT SCH (09:05)
[2019-07-04] MEDS: PRAMIPEXOLE DI-HCL 0.5 MG TABLET PO SCH ×4 (09:05→21:33)
[2019-07-04] MEDS: SITAGLIPTIN PHOSPHATE 50 MG TABLET PO SCH (09:05)
[2019-07-04] MEDS: MELOXICAM 7.5 MG TABLET PO SCH (09:05)
[2019-07-04] MEDS: VALSARTAN 160 MG TABLET PO SCH (09:05)
[2019-07-04] MEDS: HYDROCHLOROTHIAZIDE 25 MG TABLET PO SCH (09:05)
[2019-07-04] MEDS: LISINOPRIL 10 MG TABLET PO SCH (09:06)
[2019-07-04] MEDS: ONDANSETRON 4 MG TAB.RAPDIS PO SCH ×2 (09:06→17:19)
[2019-07-04] MEDS: HYDROMORPHONE HCL 2 MG TABLET PO PRN ×2 (17:19→21:33)
--- NOTE | 2019-07-04 17:37 | PDOC PROGRESS REPORT ---
Subjective Progress Note for:: 07/04/19 Subjective:: Patient able to keep food down for the first time since admission, the IV line tissued, no IV access presently Reason For Visit: PERSISTANT VOMITING AND DIARRHEA, T2 DM Physical Exam Vital Signs: Temp Pulse Resp BP Pulse Ox 98.4 F 94 20 129/66 H 97 07/04/19 16:21 07/04/19 16:21 07/04/19 16:21 07/04/19 16:21 07/04/19 16:21 Intake & Output 07/03/19 07/04/19 07/05/19 06:59 06:59 06:59 Intake Total 4059 3247 480 Output Total 1650 550 Balance 4059 1597 -70 Weight 74.8 kg 76.7 kg General appearance: PRESENT: no acute distress Eye exam: PRESENT: PERRLA Respiratory exam: PRESENT: clear to auscultation isak Cardiovascular exam: PRESENT: +S1, +S2 GI/Abdominal exam: PRESENT: soft Neurological exam: PRESENT: alert Results Laboratory Results: 07/03/19 04:45 07/02/19 16:03 Impressions: Chest X-Ray 06/30/19 00:00 IMPRESSION: NO ACUTE RADIOGRAPHIC FINDING IN THE CHEST. Assessment & Plan - Diagnosis (1) Intractable vomiting Qualifiers: Vomiting type: unspecified Nausea presence: with nausea Qualified Code(s): R11.2 - Nausea with vomiting, unspecified Is this a current diagnosis for this admission?: Yes Plan: Continue treatment (2) T2DM (type 2 diabetes mellitus) Qualifiers: Diabetes mellitus terminal superintendent insulin use: without terminal superintendent use Diabetes mellitus complication status: without complication Qualified Code(s): E11.9 - Type 2 diabetes mellitus without complications Is this a current diagnosis for this admission?: Yes (3) Abdominal pain Qualifiers: Abdominal location: generalized Qualified Code(s): R10.84 - Generalized abdominal pain Is this a current diagnosis for this admission?: Yes - Time Time Spent with patient: 15-24 minutes
[2019-07-04] MEDS: TRAMADOL HCL 50 MG TABLET PO PRN (20:01)
[2019-07-04] MEDS: ATORVASTATIN CALCIUM 10 MG TABLET PO SCH (21:33)
[2019-07-04] MEDS: MIRTAZAPINE 15 MG TABLET PO SCH (21:33)
[2019-07-05] MEDS: PANTOPRAZOLE SODIUM 40 MG TABLET.DR PO SCH (06:58)
[2019-07-05] MEDS: HYDROMORPHONE HCL 2 MG TABLET PO PRN ×2 (07:31→22:50)
[2019-07-05] MEDS: PRAMIPEXOLE DI-HCL 0.5 MG TABLET PO SCH ×4 (10:13→22:49)
[2019-07-05] MEDS: LISINOPRIL 10 MG TABLET PO SCH (10:13)
[2019-07-05] MEDS: VALSARTAN 160 MG TABLET PO SCH (10:14)
[2019-07-05] MEDS: HYDROCHLOROTHIAZIDE 25 MG TABLET PO SCH (10:14)
[2019-07-05] MEDS: MELOXICAM 7.5 MG TABLET PO SCH (10:14)
[2019-07-05] MEDS: SITAGLIPTIN PHOSPHATE 50 MG TABLET PO SCH (10:14)
[2019-07-05] MEDS: ONDANSETRON 4 MG TAB.RAPDIS PO SCH ×2 (10:14→18:19)
[2019-07-05] MEDS: MEGESTROL ACETATE SUSP 400 MG/10 ML UDCUP PO SCH ×3 (10:14→18:19)
[2019-07-05] MEDS: ENOXAPARIN SODIUM INJ 40 MG/0.4 ML DISP.SYRIN SUBCUT SCH (10:14)
[2019-07-05] MEDS: TRAMADOL HCL 50 MG TABLET PO PRN (10:26)
[2019-07-05] MEDS ORDERED: HYDROMORPHONE HCL INJ/PF 2 MG/ML AMPULE ONE (12:35)
[2019-07-05] MEDS: HYDROMORPHONE HCL INJ/PF 2 MG/ML AMPULE IV PRN (18:09)
[2019-07-05] MEDS: IPRATROPIUM/ALBUTEROL 0.5-2.5 MG/3 ML AMPUL NEB PRN (18:45)
--- NOTE | 2019-07-05 20:51 | PDOC PROGRESS REPORT ---
Subjective Progress Note for:: 07/05/19 Subjective:: Patient seen by the bedside, she continues to require pain medication Reason For Visit: PERSISTANT VOMITING AND DIARRHEA, T2 DM Physical Exam Vital Signs: Temp Pulse Resp BP Pulse Ox 98.0 F 88 18 94/54 L 97 07/05/19 16:00 07/05/19 18:45 07/05/19 18:45 07/05/19 16:00 07/05/19 18:45 Intake & Output 07/04/19 07/05/19 07/06/19 06:59 06:59 06:59 Intake Total 3247 2422 1513 Output Total 1650 1000 1625 Balance 1597 1422 -112 Weight 76.7 kg 76.3 kg 76.3 kg General appearance: PRESENT: no acute distress Eye exam: PRESENT: PERRLA Respiratory exam: PRESENT: clear to auscultation isak Cardiovascular exam: PRESENT: +S1, +S2 GI/Abdominal exam: PRESENT: soft Neurological exam: PRESENT: alert, CN II-XII grossly intact Results Laboratory Results: 07/03/19 04:45 07/02/19 16:03 06/30/19 20:44 Blood Blood Culture - Final NO GROWTH IN 5 DAYS Impressions: Chest X-Ray 06/30/19 00:00 IMPRESSION: NO ACUTE RADIOGRAPHIC FINDING IN THE CHEST. Assessment & Plan - Diagnosis (1) Intractable vomiting Qualifiers: Vomiting type: unspecified Nausea presence: with nausea Qualified Code(s): R11.2 - Nausea with vomiting, unspecified Is this a current diagnosis for this admission?: Yes (2) T2DM (type 2 diabetes mellitus) Qualifiers: Diabetes mellitus shelter insulin use: without shelter use Diabetes mellitus complication status: without complication Qualified Code(s): E11.9 - Type 2 diabetes mellitus without complications Is this a current diagnosis for this admission?: Yes (3) Abdominal pain Qualifiers: Abdominal location: generalized Qualified Code(s): R10.84 - Generalized abdominal pain Is this a current diagnosis for this admission?: Yes - Time Time Spent with patient: Less than 15 minutes
[2019-07-05] MEDS: ATORVASTATIN CALCIUM 10 MG TABLET PO SCH (22:49)
[2019-07-05] MEDS: MIRTAZAPINE 15 MG TABLET PO SCH (22:51)
[2019-07-06] MEDS: HYDROMORPHONE HCL INJ/PF 2 MG/ML AMPULE IV PRN ×4 (00:53→22:43)
[2019-07-06] MEDS: ONDANSETRON HCL INJ/PF 4 MG/2 ML SDV IV PRN (00:56)
[2019-07-06] MEDS: HYDROMORPHONE HCL 2 MG TABLET PO PRN ×3 (05:28→22:42)
[2019-07-06] MEDS: PANTOPRAZOLE SODIUM 40 MG TABLET.DR PO SCH (05:28)
[2019-07-06] MEDS: HYDROCHLOROTHIAZIDE 25 MG TABLET PO SCH (09:35)
[2019-07-06] MEDS: MEGESTROL ACETATE SUSP 400 MG/10 ML UDCUP PO SCH ×3 (09:35→18:24)
[2019-07-06] MEDS: SITAGLIPTIN PHOSPHATE 50 MG TABLET PO SCH (09:35)
[2019-07-06] MEDS: VALSARTAN 160 MG TABLET PO SCH (09:35)
[2019-07-06] MEDS: MELOXICAM 7.5 MG TABLET PO SCH (09:36)
[2019-07-06] MEDS: ONDANSETRON 4 MG TAB.RAPDIS PO SCH ×2 (09:36→18:24)
[2019-07-06] MEDS: LISINOPRIL 10 MG TABLET PO SCH (09:36)
[2019-07-06] MEDS: PRAMIPEXOLE DI-HCL 0.5 MG TABLET PO SCH ×4 (09:36→22:42)
[2019-07-06] MEDS: ENOXAPARIN SODIUM INJ 40 MG/0.4 ML DISP.SYRIN SUBCUT SCH (09:36)
[2019-07-06] MEDS: IPRATROPIUM/ALBUTEROL 0.5-2.5 MG/3 ML AMPUL NEB PRN (12:09)
--- NOTE | 2019-07-06 17:22 | PDOC PROGRESS REPORT ---
Subjective Progress Note for:: 07/06/19 Subjective:: Patient seen by the bedside, she continues to have difficulty keeping food down Reason For Visit: PERSISTANT VOMITING AND DIARRHEA, T2 DM Physical Exam Vital Signs: Temp Pulse Resp BP Pulse Ox 98.1 F 75 16 125/57 L 98 07/06/19 07:54 07/06/19 12:11 07/06/19 12:11 07/06/19 07:54 07/06/19 12:11 Intake & Output 07/05/19 07/06/19 07/07/19 06:59 06:59 06:59 Intake Total 2422 1873 810 Output Total 1000 1625 800 Balance 1422 248 10 Weight 76.3 kg 74.9 kg General appearance: PRESENT: no acute distress Eye exam: PRESENT: PERRLA Respiratory exam: PRESENT: clear to auscultation isak Cardiovascular exam: PRESENT: +S1, +S2 GI/Abdominal exam: PRESENT: soft Results Laboratory Results: 07/03/19 04:45 07/02/19 16:03 06/30/19 21:25 Blood Blood Culture - Final NO GROWTH IN 5 DAYS 06/30/19 20:44 Blood Blood Culture - Final NO GROWTH IN 5 DAYS Impressions: Chest X-Ray 06/30/19 00:00 IMPRESSION: NO ACUTE RADIOGRAPHIC FINDING IN THE CHEST. Assessment & Plan - Diagnosis (1) Intractable vomiting Qualifiers: Vomiting type: unspecified Nausea presence: with nausea Qualified Code(s): R11.2 - Nausea with vomiting, unspecified Is this a current diagnosis for this admission?: Yes (2) T2DM (type 2 diabetes mellitus) Qualifiers: Diabetes mellitus [facility] insulin use: without [facility] use Diabetes mellitus complication status: without complication Qualified Code(s): E11.9 - Type 2 diabetes mellitus without complications Is this a current diagnosis for this admission?: Yes (3) Abdominal pain Qualifiers: Abdominal location: generalized Qualified Code(s): R10.84 - Generalized abdominal pain Is this a current diagnosis for this admission?: Yes - Time Time Spent with patient: 15-24 minutes
[2019-07-06] MEDS: MIRTAZAPINE 15 MG TABLET PO SCH (22:42)
[2019-07-06] MEDS: ATORVASTATIN CALCIUM 10 MG TABLET PO SCH (22:42)
[2019-07-07] MEDS: ONDANSETRON HCL INJ/PF 4 MG/2 ML SDV IV PRN ×2 (02:00→23:21)
[2019-07-07] MEDS: HYDROMORPHONE HCL 2 MG TABLET PO PRN ×4 (03:24→22:15)
[2019-07-07] MEDS: HYDROMORPHONE HCL INJ/PF 2 MG/ML AMPULE IV PRN ×3 (05:07→18:51)
[2019-07-07] MEDS: PANTOPRAZOLE SODIUM 40 MG TABLET.DR PO SCH (05:07)
[2019-07-07] MEDS: IPRATROPIUM/ALBUTEROL 0.5-2.5 MG/3 ML AMPUL NEB PRN (09:04)
[2019-07-07] MEDS: MELOXICAM 7.5 MG TABLET PO SCH (09:53)
[2019-07-07] MEDS: MEGESTROL ACETATE SUSP 400 MG/10 ML UDCUP PO SCH ×3 (09:53→17:10)
[2019-07-07] MEDS: HYDROCHLOROTHIAZIDE 25 MG TABLET PO SCH (09:53)
[2019-07-07] MEDS: ONDANSETRON 4 MG TAB.RAPDIS PO SCH ×2 (09:53→17:10)
[2019-07-07] MEDS: VALSARTAN 160 MG TABLET PO SCH (09:53)
[2019-07-07] MEDS: SITAGLIPTIN PHOSPHATE 50 MG TABLET PO SCH (09:53)
[2019-07-07] MEDS: PRAMIPEXOLE DI-HCL 0.5 MG TABLET PO SCH ×4 (09:53→21:49)
[2019-07-07] MEDS: LISINOPRIL 10 MG TABLET PO SCH (09:53)
[2019-07-07] MEDS: ENOXAPARIN SODIUM INJ 40 MG/0.4 ML DISP.SYRIN SUBCUT SCH (09:58)
--- NOTE | 2019-07-07 21:09 | PDOC PROGRESS REPORT ---
Subjective Progress Note for:: 07/07/19 Subjective:: Patient seen by the bedside, she continues to have difficulty keeping food down Reason For Visit: PERSISTANT VOMITING AND DIARRHEA, T2 DM Physical Exam Vital Signs: Temp Pulse Resp BP Pulse Ox 98.5 F 98 22 H 137/68 H 97 07/07/19 11:32 07/07/19 11:32 07/07/19 11:32 07/07/19 11:32 07/07/19 11:32 Intake & Output 07/06/19 07/07/19 07/08/19 06:59 06:59 06:59 Intake Total 1873 1290 1448 Output Total 1625 1100 1700 Balance 248 190 -252 Weight 74.9 kg 75.5 kg General appearance: PRESENT: no acute distress Eye exam: PRESENT: PERRLA Respiratory exam: PRESENT: clear to auscultation isak Cardiovascular exam: PRESENT: +S1, +S2 GI/Abdominal exam: PRESENT: soft Results Laboratory Results: 07/03/19 04:45 07/02/19 16:03 Impressions: Chest X-Ray 06/30/19 00:00 IMPRESSION: NO ACUTE RADIOGRAPHIC FINDING IN THE CHEST. Assessment & Plan - Diagnosis (1) Intractable vomiting Qualifiers: Vomiting type: unspecified Nausea presence: with nausea Qualified Code(s): R11.2 - Nausea with vomiting, unspecified Is this a current diagnosis for this admission?: Yes (2) T2DM (type 2 diabetes mellitus) Qualifiers: Diabetes mellitus manager terminal insulin use: without manager terminal use Diabetes mellitus complication status: without complication Qualified Code(s): E11.9 - Type 2 diabetes mellitus without complications Is this a current diagnosis for this admission?: Yes (3) Abdominal pain Qualifiers: Abdominal location: generalized Qualified Code(s): R10.84 - Generalized abdominal pain Is this a current diagnosis for this admission?: Yes - Time Time Spent with patient: 15-24 minutes
[2019-07-07] MEDS: MIRTAZAPINE 15 MG TABLET PO SCH (21:50)
[2019-07-07] MEDS: ATORVASTATIN CALCIUM 10 MG TABLET PO SCH (21:50)
[2019-07-08] MEDS: HYDROMORPHONE HCL INJ/PF 2 MG/ML AMPULE IV PRN ×4 (01:00→20:23)
[2019-07-08] MEDS: PANTOPRAZOLE SODIUM 40 MG TABLET.DR PO SCH (05:09)
[2019-07-08] MEDS: HYDROMORPHONE HCL 2 MG TABLET PO PRN ×4 (05:09→23:46)
[2019-07-08] MEDS: HYDROCHLOROTHIAZIDE 25 MG TABLET PO SCH (10:56)
[2019-07-08] MEDS: MELOXICAM 7.5 MG TABLET PO SCH (10:57)
[2019-07-08] MEDS: ENOXAPARIN SODIUM INJ 40 MG/0.4 ML DISP.SYRIN SUBCUT SCH (10:57)
[2019-07-08] MEDS: VALSARTAN 160 MG TABLET PO SCH (10:57)
[2019-07-08] MEDS: LISINOPRIL 10 MG TABLET PO SCH (10:57)
[2019-07-08] MEDS: PRAMIPEXOLE DI-HCL 0.5 MG TABLET PO SCH ×4 (10:57→21:11)
[2019-07-08] MEDS: MEGESTROL ACETATE SUSP 400 MG/10 ML UDCUP PO SCH ×3 (10:57→18:01)
[2019-07-08] MEDS: SITAGLIPTIN PHOSPHATE 50 MG TABLET PO SCH (10:57)
[2019-07-08] MEDS: ONDANSETRON 4 MG TAB.RAPDIS PO SCH ×2 (10:58→18:01)
[2019-07-08] MEDS: IPRATROPIUM/ALBUTEROL 0.5-2.5 MG/3 ML AMPUL NEB PRN (14:28)
--- NOTE | 2019-07-08 20:48 | PDOC PROGRESS REPORT ---
Subjective Progress Note for:: 07/08/19 Subjective:: Patient seen by the bedside, she continues to complain of pain and vomiting, she is requesting to have the Dilaudid every 4 hours, presently every 6 hours, she is on Dilaudid 0.5 mg every 6 hours as needed that is adequate at the moment no need to increase frequency Reason For Visit: PERSISTANT VOMITING AND DIARRHEA, T2 DM Physical Exam Vital Signs: Temp Pulse Resp BP Pulse Ox 97.9 F 99 20 116/56 L 95 07/08/19 20:00 07/08/19 20:00 07/08/19 20:00 07/08/19 20:00 07/08/19 20:00 Intake & Output 07/07/19 07/08/19 07/09/19 06:59 06:59 06:59 Intake Total 1290 1928 462 Output Total 1100 1700 1000 Balance 190 228 -538 Weight 75.5 kg 71 kg General appearance: PRESENT: no acute distress Eye exam: PRESENT: PERRLA Respiratory exam: PRESENT: clear to auscultation isak Cardiovascular exam: PRESENT: +S1, +S2 GI/Abdominal exam: PRESENT: soft Neurological exam: PRESENT: alert Results Laboratory Results: 07/03/19 04:45 07/02/19 16:03 Impressions: Chest X-Ray 06/30/19 00:00 IMPRESSION: NO ACUTE RADIOGRAPHIC FINDING IN THE CHEST. Assessment & Plan - Diagnosis (1) Intractable vomiting Qualifiers: Vomiting type: unspecified Nausea presence: with nausea Qualified Code(s): R11.2 - Nausea with vomiting, unspecified Is this a current diagnosis for this admission?: Yes (2) T2DM (type 2 diabetes mellitus) Qualifiers: Diabetes mellitus anglesmith helper insulin use: without halfway use Diabetes mellitus complication status: without complication Qualified Code(s): E11.9 - Type 2 diabetes mellitus without complications Is this a current diagnosis for this admission?: Yes (3) Abdominal pain Qualifiers: Abdominal location: generalized Qualified Code(s): R10.84 - Generalized abdominal pain Is this a current diagnosis for this admission?: Yes - Time Time Spent with patient: 25-34 minutes
[2019-07-08] MEDS: ATORVASTATIN CALCIUM 10 MG TABLET PO SCH (21:11)
[2019-07-08] MEDS: MIRTAZAPINE 15 MG TABLET PO SCH (21:11)
[2019-07-09] MEDS: HYDROMORPHONE HCL INJ/PF 2 MG/ML AMPULE IV PRN ×4 (03:05→22:17)
[2019-07-09] MEDS: PANTOPRAZOLE SODIUM 40 MG TABLET.DR PO SCH (06:05)
[2019-07-09] MEDS: MEGESTROL ACETATE SUSP 400 MG/10 ML UDCUP PO SCH ×3 (09:30→17:21)
[2019-07-09] MEDS: SITAGLIPTIN PHOSPHATE 50 MG TABLET PO SCH (09:31)
[2019-07-09] MEDS: HYDROCHLOROTHIAZIDE 25 MG TABLET PO SCH (09:31)
[2019-07-09] MEDS: VALSARTAN 160 MG TABLET PO SCH (09:31)
[2019-07-09] MEDS: LISINOPRIL 10 MG TABLET PO SCH (09:31)
[2019-07-09] MEDS: ONDANSETRON 4 MG TAB.RAPDIS PO SCH ×2 (09:31→17:22)
[2019-07-09] MEDS: PRAMIPEXOLE DI-HCL 0.5 MG TABLET PO SCH ×4 (09:31→22:14)
[2019-07-09] MEDS: MELOXICAM 7.5 MG TABLET PO SCH (09:31)
[2019-07-09] MEDS: ENOXAPARIN SODIUM INJ 40 MG/0.4 ML DISP.SYRIN SUBCUT SCH (09:36)
--- NOTE | 2019-07-09 13:25 | PDOC PROGRESS REPORT ---
Subjective Progress Note for:: 07/09/19 Subjective:: Patient reported nasal ands sinus congestion with post nasal drip and burdensome coughing productive of light yellow sputum. No fever or chills. No headache or dizziness. No nausea or vomiting. Tolerating oral feeding. Continue to report abdominal pain and only accept to take IV Dilaudid. Reason For Visit: PERSISTANT VOMITING AND DIARRHEA, T2 DM Physical Exam Vital Signs: Temp Pulse Resp BP Pulse Ox 98.2 F 83 18 121/88 H 93 07/09/19 12:00 07/09/19 12:31 07/09/19 12:31 07/09/19 12:00 07/09/19 12:31 Intake & Output 07/08/19 07/09/19 07/10/19 06:59 06:59 07:59 Intake Total 1928 702 Output Total 1700 1400 Balance 228 -698 Weight 71 kg 72.4 kg General appearance: PRESENT: no acute distress, well-developed, well-nourished Head exam: PRESENT: atraumatic, normocephalic Eye exam: PRESENT: conjunctiva pink. ABSENT: scleral icterus Ear exam: PRESENT: normal external ear exam Mouth exam: PRESENT: moist, tongue midline Neck exam: PRESENT: full ROM. ABSENT: carotid bruit, JVD, lymphadenopathy, thyromegaly Respiratory exam: PRESENT: clear to auscultation isak Cardiovascular exam: PRESENT: RRR. ABSENT: diastolic murmur, rubs, systolic murmur Vascular exam: ABSENT: pallor GI/Abdominal exam: PRESENT: normal bowel sounds, soft. ABSENT: distended, guarding, mass, organolmegaly, rebound, tenderness Rectal exam: PRESENT: deferred Extremities exam: ABSENT: pedal edema Neurological exam: PRESENT: alert, awake, oriented to person, oriented to place, oriented to time, oriented to situation, CN II-XII grossly intact. ABSENT: motor sensory deficit Psychiatric exam: PRESENT: appropriate affect, normal mood. ABSENT: homicidal ideation, suicidal ideation Skin exam: PRESENT: dry, intact, warm. ABSENT: cyanosis, rash Results Laboratory Results: 07/03/19 04:45 07/02/19 16:03 Impressions: Chest X-Ray 06/30/19 00:00 IMPRESSION: NO ACUTE RADIOGRAPHIC FINDING IN THE CHEST. Assessment & Plan - Diagnosis (1) Abdominal pain Qualifiers: Abdominal location: generalized Qualified Code(s): R10.84 - Generalized abdominal pain Is this a current diagnosis for this admission?: Yes Plan: Continue current medication management. (2) Intractable vomiting Qualifiers: Vomiting type: unspecified Nausea presence: with nausea Qualified Code(s) : R11.2 - Nausea with vomiting, unspecified Is this a current diagnosis for this admission?: Yes Plan: Continue current management and supportive care. (3) T2DM (type 2 diabetes mellitus) Qualifiers: Diabetes mellitus [facility] insulin use: without buttermaker continuous churn use Diabetes mellitus complication status: without complication Qualified Code(s): E11.9 - Type 2 diabetes mellitus without complications Is this a current diagnosis for this admission?: Yes Plan: Current current medication management. (4) Seasonal allergic rhinitis Qualifiers: Allergic rhinitis trigger: unspecified Qualified Code(s): J30.2 - Other seasonal allergic rhinitis Is this a current diagnosis for this admission?: Yes Plan: See covering attending physician orders for details. - Time Time Spent with patient: 25-34 minutes Level of Care: TELE Medications reviewed and adjusted accordingly: Yes Anticipated discharge: Home with Homehealth Within: Other - Inpatient Certification Based on my medical assessment, after consideration of the patient's comorbidities, presenting symptoms, or acuity I expect that the services needed warrant INPATIENT care.: Yes I certify that my determination is in accordance with my understanding of Medicare's requirements for reasonable and necessary INPATIENT services [42 CFR 412.3e].: Yes Medical Necessity: Significant Comorbidiites Make Outpatient Treatment Too Risky, Need Close Monitoring Due to Risk of Patient Decompensation, Need For IV Fluids, Need For Continuous Telemetry Monitoring, Need for Pain Control, Risk of Complication if Not Cared For in Hospital, Risk of Diagnosis Which Will Require Inpatient Eval/Care/Monitoring Post Hospital Care: D/C Factory Worker Documentation - Plan Summary Plan Summary: Start on Claritin 10 mg po daily. Robitussin 400 mg p.o q4 hours prn for cough management. Maintain on all other current medication management.
[2019-07-09] MEDS: HYDROMORPHONE HCL 2 MG TABLET PO PRN (13:26)
[2019-07-09] MEDS: ATORVASTATIN CALCIUM 10 MG TABLET PO SCH (22:14)
[2019-07-09] MEDS: MIRTAZAPINE 15 MG TABLET PO SCH (22:14)
[2019-07-10] MEDS: HYDROMORPHONE HCL INJ/PF 2 MG/ML AMPULE IV PRN ×3 (05:16→17:44)
[2019-07-10] MEDS: PANTOPRAZOLE SODIUM 40 MG TABLET.DR PO SCH (05:17)
[2019-07-10] MEDS: MEGESTROL ACETATE SUSP 400 MG/10 ML UDCUP PO SCH ×3 (10:02→17:43)
[2019-07-10] MEDS: PRAMIPEXOLE DI-HCL 0.5 MG TABLET PO SCH ×4 (10:03→22:48)
[2019-07-10] MEDS: MELOXICAM 7.5 MG TABLET PO SCH (10:03)
[2019-07-10] MEDS: LISINOPRIL 10 MG TABLET PO SCH (10:03)
[2019-07-10] MEDS: HYDROMORPHONE HCL 2 MG TABLET PO PRN ×2 (10:03→20:27)
[2019-07-10] MEDS: SITAGLIPTIN PHOSPHATE 50 MG TABLET PO SCH (10:03)
[2019-07-10] MEDS: VALSARTAN 160 MG TABLET PO SCH (10:03)
[2019-07-10] MEDS: ONDANSETRON 4 MG TAB.RAPDIS PO SCH ×2 (10:04→17:44)
[2019-07-10] MEDS: HYDROCHLOROTHIAZIDE 25 MG TABLET PO SCH (10:04)
[2019-07-10] MEDS: ENOXAPARIN SODIUM INJ 40 MG/0.4 ML DISP.SYRIN SUBCUT SCH (11:41)
--- NOTE | 2019-07-10 14:07 | PDOC PROGRESS REPORT ---
Subjective Progress Note for:: 07/10/19 Subjective:: Patient denied fever or chills. No headache or dizziness. Her nasal and sinus congestion is getting better. No chest pain or difficulty with breathing. No abdominal pain, nausea or vomiting. Tolerating oral feeding. Reason For Visit: PERSISTANT VOMITING AND DIARRHEA, T2 DM Physical Exam Vital Signs: Temp Pulse Resp BP Pulse Ox 97.8 F 87 19 126/63 H 97 07/10/19 12:00 07/10/19 12:00 07/10/19 12:00 07/10/19 12:00 07/10/19 12:00 Intake & Output 07/09/19 07/10/19 07/11/19 05:59 06:59 06:59 Intake Total 360 Output Total Balance 360 Weight Physical Exam: General appearance: PRESENT: no acute distress, well-developed, well-nourished Head exam: PRESENT: atraumatic, normocephalic Eye exam: PRESENT: conjunctiva pink. ABSENT: pallor, scleral icterus Ear exam: PRESENT: normal external ear exam Mouth exam: PRESENT: moist, tongue midline Neck exam: PRESENT: full ROM. ABSENT: carotid bruit, JVD, lymphadenopathy, thyromegaly Respiratory exam: PRESENT: clear to auscultation isak Cardiovascular exam: PRESENT: RRR. ABSENT: diastolic murmur, rubs, systolic murmur GI/Abdominal exam: PRESENT: normal bowel sounds, soft. ABSENT: distended, guarding, mass, organomegaly, rebound, tenderness Extremities exam: ABSENT: pedal edema Neurological exam: PRESENT: alert, awake, oriented to person, oriented to place, oriented to time, oriented to situation, CN II-XII grossly intact. ABSENT: motor sensory deficit Psychiatric exam: PRESENT: appropriate affect, normal mood. ABSENT: homicidal ideation, suicidal ideation Skin exam: PRESENT: dry, intact, warm. ABSENT: cyanosis, rash Results Laboratory Results: 07/03/19 04:45 07/02/19 16:03 Impressions: Chest X-Ray 06/30/19 00:00 IMPRESSION: NO ACUTE RADIOGRAPHIC FINDING IN THE CHEST. Assessment & Plan - Diagnosis (1) Abdominal pain Qualifiers: Abdominal location: generalized Qualified Code(s): R10.84 - Generalized abdominal pain Is this a current diagnosis for this admission?: Yes (2) Intractable vomiting Qualifiers: Vomiting type: unspecified Nausea presence: with nausea Qualified Code(s): R11.2 - Nausea with vomiting, unspecified Is this a current diagnosis for this admission?: Yes (3) T2DM (type 2 diabetes mellitus) Qualifiers: Diabetes mellitus watermelon inspector insulin use: without watermelon inspector use Diabetes mellitus complication status: without complication Qualified Code(s): E11.9 - Type 2 diabetes mellitus without complications Is this a current diagnosis for this admission?: Yes (4) Seasonal allergic rhinitis Qualifiers: Allergic rhinitis trigger: unspecified Qualified Code(s): J30.2 - Other seasonal allergic rhinitis Is this a current diagnosis for this admission?: Yes - Time Time Spent with patient: 25-34 minutes Level of Care: MEDICAL Medications reviewed and adjusted accordingly: Yes Anticipated discharge: Home with Homehealth Within: Other - Inpatient Certification Based on my medical assessment, after consideration of the patient's comorbidities, presenting symptoms, or acuity I expect that the services needed warrant INPATIENT care.: Yes I certify that my determination is in accordance with my understanding of Medicare's requirements for reasonable and necessary INPATIENT services [42 CFR 412.3e].: Yes Medical Necessity: Significant Comorbidiites Make Outpatient Treatment Too Risky, Need Close Monitoring Due to Risk of Patient Decompensation, Need for Pain Control, Risk of Complication if Not Cared For in Hospital, Risk of Diagnosis Which Will Require Inpatient Eval/Care/Monitoring Post Hospital Care: D/C Financial Foundations Associate Documentation - Plan Summary Plan Summary: Continue current medication management.
[2019-07-10] MEDS: ATORVASTATIN CALCIUM 10 MG TABLET PO SCH (22:48)
[2019-07-10] MEDS: MIRTAZAPINE 15 MG TABLET PO SCH (22:48)
[2019-07-11] MEDS: HYDROMORPHONE HCL INJ/PF 2 MG/ML AMPULE IV PRN ×4 (00:08→19:45)
[2019-07-11] MEDS: PANTOPRAZOLE SODIUM 40 MG TABLET.DR PO SCH (05:07)
[2019-07-11] MEDS: MEGESTROL ACETATE SUSP 400 MG/10 ML UDCUP PO SCH ×3 (10:58→17:45)
[2019-07-11] MEDS: HYDROCHLOROTHIAZIDE 25 MG TABLET PO SCH (10:58)
[2019-07-11] MEDS: VALSARTAN 160 MG TABLET PO SCH (10:59)
[2019-07-11] MEDS: MELOXICAM 7.5 MG TABLET PO SCH (10:59)
[2019-07-11] MEDS: PRAMIPEXOLE DI-HCL 0.5 MG TABLET PO SCH ×4 (10:59→21:11)
[2019-07-11] MEDS: SITAGLIPTIN PHOSPHATE 50 MG TABLET PO SCH (10:59)
[2019-07-11] MEDS: LISINOPRIL 10 MG TABLET PO SCH (10:59)
[2019-07-11] MEDS: ONDANSETRON 4 MG TAB.RAPDIS PO SCH ×2 (10:59→17:45)
[2019-07-11] MEDS: ENOXAPARIN SODIUM INJ 40 MG/0.4 ML DISP.SYRIN SUBCUT SCH (11:00)
[2019-07-11] MEDS: HYDROMORPHONE HCL 2 MG TABLET PO PRN (11:05)
--- NOTE | 2019-07-11 20:38 | PDOC DISCHARGE SUMMARY ---
Impression - Admit/DC Date/PCP Admission Date/Primary Care Provider: 07/03/19 10:29 ROSLYN TOLEDO MD Discharge Date: 07/12/19 - Discharge Diagnosis (1) Intractable vomiting Is this a current diagnosis for this admission?: Yes (2) T2DM (type 2 diabetes mellitus) Is this a current diagnosis for this admission?: Yes (3) Abdominal pain Is this a current diagnosis for this admission?: Yes - Additional Information Referrals: ROSLYN TOLEDO MD [Primary Care Provider] - 07/12/19 1:45 pm Home Medications: Pramipexole Di-HCl [Pramipexole Dihydrochloride] 0.5 mg PO QID 01/13/19 Pantoprazole Sodium [Protonix [address] Tablet] 40 mg PO DAILY #90 tablet.dr 01/19/19 Buprenorphine [Butrans] 1 patch TOP .QWEEKLY MDD CANT REMEMBER WHAT DAY 05/18/19 Mirtazapine 45 mg PO QHS 05/18/19 Tramadol HCl [Ultram 50 mg Tablet] 50 mg PO Q8HP PRN 05/18/19 Lisinopril [Prinivil 10 mg Tablet] 10 mg PO DAILY #90 tablet 05/23/19 Sitagliptin Phosphate [Januvia] 100 mg PO DAILY #90 tablet 05/23/19 Aspirin/Acetaminophen/Caffeine [Excedrin Migraine Caplet] 1 each PO DAILYP PRN 07/01/19 Atorvastatin Calcium [Lipitor 10 mg Tablet] 10 mg PO DAILY 07/01/19 Megestrol Acetate [Megace Rika 400 mg/10 ml Udcup] 400 mg PO TID 07/01/19 Meloxicam [Mobic] 7.5 mg PO DAILY 07/01/19 Ondansetron [Zofran Odt 4 mg Tablet] 8 mg PO BID 07/01/19 Valsartan/Hydrochlorothiazide [Valsartan-Hctz 160-25 mg Tab] 1 each PO DAILY 07/01/19 History of Present Illiness History of Present Illness: ALANA ROMERO is a 78 year old female, Patient came to the office for evaluation of persistent vomiting not able to keep any food down, she was just recently admitted in this hospital on 05/30/2019 when she presented in a similar fashion with vomiting diarrhea, not able to keep any food down at the time she was seen by GI Dr. Westbrook she underwent upper endoscopy, she was found to have nonspecific gastritis. Patient is of advanced age, she is 78 years old she lives by herself she had a 2D echo done on the 05/18/2023 evaluation of possible CHF, a 2D echo demonstrated normal-sized left ventricle the estimated ejection fraction of left ventricle was 65%, the Doppler assessment suggests pseudonormalization of left ventricle associated with grade 2 diastolic dysfunction of the left ventricle there was no significant valvular heart disease. Patient has had multiple hospital admission for evaluation of GI symptoms of vomiting. Hospital Course Hospital Course: Patient was admitted for the management of persistent vomiting abdominal pain, diarrhea. She has underlining type 2 diabetes mellitus, degenerative joint disease.Hospital course was . She was treated with IV fluid, pain control was achieved with a low-dose Dilaudid. She was evaluated in the past with upper endoscopies CAT scan of the abdomen and pelvis without any obvious cause demonstrated for the vomiting Physical Exam Vital Signs: Temp Pulse Resp BP Pulse Ox 97.9 F 80 16 114/55 L 96 07/11/19 19:23 07/11/19 19:23 07/11/19 19:23 07/11/19 19:23 07/11/19 19:23 Intake & Output 07/10/19 07/11/19 07/12/19 06:59 06:59 06:59 Intake Total 2214 480 Output Total 1150 1250 Balance 1064 -770 Weight 75.3 kg General appearance: PRESENT: no acute distress Eye exam: PRESENT: PERRLA Respiratory exam: PRESENT: clear to auscultation isak Cardiovascular exam: PRESENT: +S1, +S2 GI/Abdominal exam: PRESENT: soft Neurological exam: PRESENT: alert, CN II-XII grossly intact Results Laboratory Results: WBC 9.9 10^3/uL (4.0-10.5) 07/03/19 04:45 RBC 4.23 10^6/uL (3.72-5.28) 07/03/19 04:45 Hgb 11.0 g/dL (12.0-15.5) L 07/03/19 04:45 Hct 33.5 % (36.0-47.0) L 07/03/19 04:45 MCV 79 fl (80-97) L 07/03/19 04:45 MCH 26.1 pg (27.0-33.4) L 07/03/19 04:45 MCHC 33.0 g/dL (32.0-36.0) 07/03/19 04:45 RDW 15.6 % (11.5-14.0) H 07/03/19 04:45 Plt Count 348 10^3/uL (150-450) 07/03/19 04:45 Lymph % (Auto) 19.0 % (13-45) 07/03/19 04:45 [place] % (Auto) 7.9 % (3-13) 07/03/19 04:45 Eos % (Auto) 2.2 % (0-6) 07/03/19 04:45 Baso % (Auto) 0.6 % (0-2) 07/03/19 04:45 Absolute Neuts (auto) 7.0 10^3/uL (1.7-8.2) 07/03/19 04:45 Absolute Lymphs (auto) 1.9 10^3/uL (0.5-4.7) 07/03/19 04:45 Absolute Monos (auto) 0.8 10^3/uL (0.1-1.4) 07/03/19 04:45 Absolute Eos (auto) 0.2 10^3/uL (0.0-0.6) 07/03/19 04:45 Absolute Basos (auto) 0.1 10^3/uL (0.0-0.2) 07/03/19 04:45 Seg Neutrophils % 70.3 % (42-78) 07/03/19 04:45 Sodium 136.7 mmol/L (137-145) L 07/02/19 16:03 Potassium 4.4 mmol/L (3.6-5.0) 07/02/19 16:03 Chloride 108 mmol/L (98-107) H 07/02/19 16:03 Carbon Dioxide 20 mmol/L (22-30) L 07/02/19 16:03 Anion Gap 9 (5-19) 07/02/19 16:03 BUN 8 mg/dL (7-20) 07/02/19 16:03 Creatinine 0.50 mg/dL (0.52-1.25) L 07/02/19 16:03 Est GFR ( Amer) > 60 (>60) 07/02/19 16:03 Est GFR (MDRD) Non-Af > 60 (>60) 07/02/19 16:03 Glucose 123 mg/dL (75-110) H 07/02/19 16:03 POC Glucose 97 mg/dL (70-110) 06/30/19 18:09 Hemoglobin A1c % 7.5 % (4.7-6.0) H 07/02/19 15:32 Calcium 8.5 mg/dL (8.4-10.2) 07/02/19 16:03 Total Bilirubin 0.3 mg/dL (0.2-1.3) 07/02/19 16:03 Direct Bilirubin 0.3 mg/dL (0.0-0.4) 07/02/19 16:03 Neonat Total Bilirubin Not Reportable 07/02/19 16:03 Neonat Direct Bilirubin Not Reportable 07/02/19 16:03 Neonat Indirect Bili Not Reportable 07/02/19 16:03 AST 23 U/L (14-36) 07/02/19 16:03 ALT 21 U/L (<35) 07/02/19 16:03 Alkaline Phosphatase 61 U/L (38-126) 07/02/19 16:03 Total Protein 6.5 g/dL (6.3-8.2) 07/02/19 16:03 Albumin 3.3 g/dL (3.5-5.0) L 07/02/19 16:03 Urine Color YELLOW 06/30/19 20:30 Urine Appearance SLIGHTLY-CLOUDY 06/30/19 20:30 Urine pH 6.0 (5.0-9.0) 06/30/19 20:30 Ur Specific [place] 1.021 06/30/19 20:30 Urine Protein 30 mg/dL (NEGATIVE) H 06/30/19 20:30 Urine Glucose (UA) NEGATIVE mg/dL (NEGATIVE) 06/30/19 20:30 Urine Ketones TRACE mg/dL (NEGATIVE) H 06/30/19 20:30 Urine Blood SMALL (NEGATIVE) H 06/30/19 20:30 Urine Nitrite NEGATIVE (NEGATIVE) 06/30/19 20:30 Urine Bilirubin NEGATIVE (NEGATIVE) 06/30/19 20:30 Urine Urobilinogen NEGATIVE mg/dL (<2.0) 06/30/19 20:30 Ur Leukocyte Esterase NEGATIVE (NEGATIVE) 06/30/19 20:30 Urine WBC (Auto) 2 /HPF 06/30/19 20:30 Urine RBC (Auto) 1 /HPF 06/30/19 20:30 Squamous Epi Cells Auto 3 /HPF 06/30/19 20:30 Urine Mucus (Auto) OCC /LPF 06/30/19 20:30 Urine Ascorbic Acid NEGATIVE (NEGATIVE) 06/30/19 20:30 Impressions: Chest X-Ray 06/30/19 00:00 IMPRESSION: NO ACUTE RADIOGRAPHIC FINDING IN THE CHEST. Stroke Is this a Stroke Patient?: No Acute Heart Failure - Is this a Heart Failure Patient?: No
[2019-07-11] MEDS: MIRTAZAPINE 15 MG TABLET PO SCH (21:11)
[2019-07-11] MEDS: ATORVASTATIN CALCIUM 10 MG TABLET PO SCH (21:11)
[2019-07-12] MEDS: HYDROMORPHONE HCL INJ/PF 2 MG/ML AMPULE IV PRN ×2 (01:45→07:55)
[2019-07-12] MEDS: PANTOPRAZOLE SODIUM 40 MG TABLET.DR PO SCH (05:09)
[2019-07-12] MEDS: ONDANSETRON HCL INJ/PF 4 MG/2 ML SDV IV PRN (05:09)
[2019-07-12] MEDS: VALSARTAN 160 MG TABLET PO SCH (09:30)
[2019-07-12] MEDS: LISINOPRIL 10 MG TABLET PO SCH (09:30)
[2019-07-12] MEDS: MELOXICAM 7.5 MG TABLET PO SCH (09:30)
[2019-07-12] MEDS: HYDROCHLOROTHIAZIDE 25 MG TABLET PO SCH (09:30)
[2019-07-12] MEDS: MEGESTROL ACETATE SUSP 400 MG/10 ML UDCUP PO SCH (09:30)
[2019-07-12] MEDS: PRAMIPEXOLE DI-HCL 0.5 MG TABLET PO SCH (09:30)
[2019-07-12] MEDS: ONDANSETRON 4 MG TAB.RAPDIS PO SCH (09:30)
[2019-07-12] MEDS: ENOXAPARIN SODIUM INJ 40 MG/0.4 ML DISP.SYRIN SUBCUT SCH (09:30)
[2019-07-12] MEDS: SITAGLIPTIN PHOSPHATE 50 MG TABLET PO SCH (09:31)
[2019-07-12 12:16] VITALS: BP 117/60
== END 2019-07-12 12:30 | disposition home health service (06) | DRG 392 ==
LOC: ER 16:07 → EH 17:11 → 4N 21:07 → OBSVTOIN 07-03 10:29
PROVIDERS: ADMIT Internal Medicine; ATTEND Internal Medicine
DX: R11.2 Nausea with vomiting, unspecified (principal); E11.9 Type 2 diabetes mellitus without complications; R19.7 Diarrhea, unspecified; E78.5 Hyperlipidemia, unspecified; I10 Essential (primary) hypertension; J44.9 Chronic obstructive pulmonary disease, unspecified; K21.9 Gastro-esophageal reflux disease without esophagitis; M19.012 Primary osteoarthritis, left shoulder; M19.011 Primary osteoarthritis, right shoulder; M47.9 Spondylosis, unspecified; F31.9 Bipolar disorder, unspecified; R10.84 Generalized abdominal pain; J30.2 Other seasonal allergic rhinitis; Z79.84 Long term (current) use of oral hypoglycemic drugs; Z79.82 Long term (current) use of aspirin; Z85.41 Personal history of malignant neoplasm of cervix uteri; Z87.891 Personal history of nicotine dependence
CPT/HCPCS: 36415; 71046; 80048; 80053; 80076; 81001; 82962; 83036; 85025; 87040; 87086; 94640; G0378; J1170; J1650; J2405; J3480; J3490; J7030; J7620; S0119

== ENCOUNTER 2019-08-19 08:25 | Emergency (ER) | payer MEDICARE, MEDICAID ==
--- NOTE | 2019-08-19 09:41 | ER Document Report ---
ED Neck/Back Problem - General Chief Complaint: Back Pain Stated Complaint: BACK PAIN Time Seen by Provider: 08/19/19 09:20 Primary Care Provider: [facility] [Provider Group] - Follow up as needed ROSLYN TOLEDO MD [Primary Care Provider] - Follow up as needed Mode of Arrival: Ambulatory Information source: Patient Notes: 79-year-old female presented to emergency room via EMS for complaint of chronic back pain. She states she has not fallen recently but she has had chronic back pain for over 3 years. She states that she goes to chronic pain management but has not been in a week and she ran out of her medicines 3 days ago. She states the chronic pain management only gives her Ultram and does not help and her pain. She states she fell a few months back and fractured her back in this pain medicine there given her does not work. She states they were given oxycodone and now they only give her Ultram. She states she quit going to Dr. Toledo 3 days ago and does not want to discuss why she quit going to him. She states her left thumb also hurts and feels like it is dislocated. Has range of motion to her left thumb and wrist got good radial pulses on her left wrist. She states she cannot eat due to all of her pain. She states she does have nausea at times but she has Zofran that she takes. She is alert oriented respirations regular nonlabored speaking in full sentences. TRAVEL OUTSIDE OF THE [place] IN LAST 30 DAYS: No - HPI Onset: Other - Chronic Where: Home Onset: Chronic Timing: Still present Quality of pain: Achy, Sharp Severity: Severe Pain Level: 5 Context: Other - Chronic Recent injury: No Associated symptoms: Like prior neck/back pain, Lower back pain. denies: Constipation, Incontinence, Numbness/tingling, Radiation to arm, Radiation to chest, Radiation to leg, Unable to urinate, Upper back pain Exacerbated by: Movement of trunk, Sitting position Relieved by: Nothing Similar symptoms previously: Yes Recently seen / treated by doctor: Yes - Related Data Allergies/Adverse Reactions: No Known Allergies Allergy (Verified 08/19/19 08:51) Home Medications: Lisinopril. oxycodone. zofran Past Medical History - General Information source: Patient - Social History Smoking Status: Never Smoker Frequency of alcohol use: None Drug Abuse: None Lives with: Alone Family History: Reviewed & Not Pertinent Patient has suicidal ideation: No Patient has homicidal ideation: No - Past Medical History Cardiac Medical History: Reports: Hx Hypercholesterolemia, Hx Hypertension Pulmonary Medical History: Reports: Hx COPD EENT Medical History: Reports: None Neurological Medical History: Reports: None Endocrine Medical History: Reports: Hx Diabetes Mellitus Type 2 - "borderline" Renal/ Medical History: Reports: Hx Ovarian Cysts Malignancy Medical History: Reports: Hx Cervical Cancer - uterine cancer GI Medical History: Reports: Hx Gastroesophageal Reflux Disease Musculoskeletal Medical History: Reports Hx Arthritis - back, shoulders, and neck, Reports Hx Musculoskeletal Deformity - Chronic back pain arthritis and back shoulder or neck Skin Medical History: Reports None Psychiatric Medical History: Reports: Hx Bipolar Disorder, Hx Depression Traumatic Medical History: Reports: Hx Fractures Infectious Medical History: Reports: None Past Surgical History: Reports: Hx Section, Hx Gynecologic Surgery, Hx Hysterectomy, Hx Orthopedic Surgery - L shoulder, Hx Tubal Ligation - Immunizations Immunizations up to date: Yes Hx Diphtheria, Pertussis, Tetanus Vaccination: Yes Hx Pneumococcal Vaccination: 02/01/13 Review of Systems - Review of Systems Constitutional: No symptoms reported EENT: No symptoms reported Cardiovascular: No symptoms reported Respiratory: No symptoms reported Gastrointestinal: No symptoms reported Genitourinary: No symptoms reported Female Genitourinary: No symptoms reported Musculoskeletal: Back pain - Low back, Other - Pain left wrist and hand Skin: No symptoms reported Hematologic/Lymphatic: No symptoms reported Neurological/Psychological: No symptoms reported -: Yes All other systems reviewed and negative Physical Exam - Vital signs Vitals: Temp Pulse Resp BP Pulse Ox 97.4 F 84 18 146/69 H 98 08/19/19 08:50 08/19/19 08:50 08/19/19 08:50 08/19/19 08:50 08/19/19 08:50 Interpretation: Normal - General General appearance: Appears well, Alert - HEENT Head: Normocephalic, Atraumatic Eyes: Normal Pupils: PERRL - Respiratory Respiratory status: No respiratory distress Chest status: Nontender Breath sounds: Normal Chest palpation: Normal - Cardiovascular Rhythm: Regular Heart sounds: Normal auscultation Murmur: No - Abdominal Inspection: Normal Distension: No distension Bowel sounds: Normal Tenderness: Nontender Organomegaly: No organomegaly - Back Back: Normal, Tender - Tenderness all the way across to her low back, Vertebra tenderness. No: Deformity/step-off, CVA tenderness, Scars, Scoliosis, Wounds Notes: Denies saddle anesthesia, loss of control of bowel bladder, loss control or sensation to lower extremities. - Extremities General upper extremity: Normal inspection, Nontender, Normal color, Normal ROM, Normal temperature General lower extremity: Normal inspection, Nontender, Normal color, Normal ROM, Normal temperature, Normal weight bearing. No: Asher's sign - Neurological Neuro grossly intact: Yes Cognition: Normal Orientation: AAOx4 Tim Coma Scale Eye Opening: Spontaneous Tim Coma Scale Verbal: Oriented [place] Coma Scale Motor: Obeys Commands [place] Coma Scale Total: 15 Speech: Normal Motor strength normal: LUE, RUE, LLE, RLE Sensory: Normal - Psychological Associated symptoms: Normal affect, Normal mood - Skin Skin Temperature: Warm Skin Moisture: Dry Skin Color: Normal Course - Re-evaluation Re-evalutation: 08/19/19 13:59 After performing a Medical Screening Examination, I estimate there is LOW risk for EXPANDING OR RUPTURED ABDOMINAL AORTIC ANEURYSM, CAUDA EQUINA SYNDROME, EPIDURAL MASS LESION, or HERNIATED DISK CAUSING SEVERE SPINAL STENOSIS, thus I consider the discharge disposition reasonable. I have reevaluated this patient multiple times and no significant life threatening changes are noted. The patient and I have discussed the diagnosis and risks, and we agree with discharging home and close follow-up. We also discussed returning to the Emergency Department immediately if new or worsening symptoms occur with the understanding that symptoms and presentations can change. We have discussed the symptoms which are most concerning (e.g., saddle anesthesia, urinary or bowel incontinence or retention, changing or worsening pain) that necessitate immediate return. - Vital Signs Vital signs: Temp Pulse Resp BP Pulse Ox 98.0 F 85 16 114/90 H 86 L 08/19/19 12:00 08/19/19 12:00 08/19/19 12:00 08/19/19 12:00 08/19/19 12:00 - Laboratory Laboratory results interpreted by me: 08/19/19 09:47 Urine Ketones TRACE H - Diagnostic Test Radiology reviewed: Image reviewed, Reports reviewed Discharge - Discharge Clinical Impression: Chronic back pain greater than 3 months duration Condition: Stable Disposition: HOME, SELF-CARE Additional Instructions: Chronic Pain Control Stress, inactivity, and depression make pain more severe regardless of the cause of the pain. Stress and poor physical condition can cause pain such as headaches and backache. Relaxation: Rest in a quiet place with your eyes closed for 20 minutes twice daily. Concentrate on a pleasant image, or simply "feel" your breathing. Clear your mind. Stress management: Deal with your "stressors." Either take action, or eliminate the stressor from your life. Don't let things hang over you. Accept those things you can't change. Nutrition: Eat small, balanced meals -- don't skip, don't overeat. Meals should be high-carbohydrate, low-sugar, low-fat. Exercise: Exercise helps painful conditions and eases stress. Get 30 minutes of moderate exercise, five days a week. Do an activity that does not flare your pain. Precautions: Pain which continues to disrupt daily activities, or which changes in nature, requires a medical evaluation. Pain Clinic referral is available. We do not manage chronic pain in the Emergency Department. We will try to appropriately help you through an acute flare of your chronic painful condition, but for on-going chronic pain that does not improve, you will need to see your private doctor or finish painter. We do not provide repeated medication management of chronic painful conditions. If you wish, we can provide the name of local pain management physicians. Chronic Back Pain Chronic back pain (pain persisting longer than three months) is a common problem. A medical evaluation can look for herniated disc, arthritis, osteoporosis, tumors, and infections. But at least half the time, there's no obvious treatable cause. Anxiety and depression tend to worsen back pain. Ibuprofen or other anti-inflammatory medicine can help. A heating pad, used for 15-20 minutes at a time, can ease pain. For this type of back pain, narcotic medicines should be avoided. Muscle relaxers are rarely helpful unless you're having spasms. Activity is important. Find an aerobic exercise program that your back can tolerate. Too much rest makes back pain worse. Specific back exercises are usually prescribed to strengthen the back and abdominal muscles. Often, a physical therapist can help. Avoid heavy lifting, working while bent over, or standing with both knees straight. Most back pain patients do better with a firm mattress. If new symptoms of a "herniated disc" (radiation of pain, numbness, or tingling down the back of the leg or weakness in the leg) occur, you should be re-examined. ORAL NARCOTIC MEDICATION: You have been given a [place] for pain control. This medication is a narcotic. It's best taken with food, as nausea can result if taken on an empty stomach. Don't operate machinery or drive within six hours of taking this medication. Do not combine this medicine with alcohol, or with any medication which can cause sedation (such as cold tablets or sleeping pills) unless you get permission from the physician. Narcotics tend to cause constipation. If possible, drink plenty of fluids and eat a diet high in fiber and fruits. Please be aware that prescription narcotics also have the potential for abuse. People become addicted to these medications because of the general sense of wellbeing that they induce. This feeling along with a significant reduction in tension, anxiety, and aggression provides a stimulating seductive quality to these drugs. Once your pain is under control, we encourage you to discard your unused narcotics. ICE PACKS: Apply ice packs frequently against the painful area. Many different schedules are recommended, such as "20 minutes on, 20 minutes off" or "one hour ice, two hours rest." If you need to work, you may need to go longer between ice treatments. You should plan to have the area ice packed AT LEAST one fourth of the time. The ice should be applied over the wrap, tape, or splint, or over a layer of cloth -- not directly against the skin. Some ice bags have a built-in cloth and can be put directly on the skin. WARM PACKS: After approximately two days, apply gentle heat (such as a heating pad or hot water bottle) for about 20 to 30 minutes about every two hours -- at least four times daily. Warmth and elevation will help you make a more rapid recovery, and will ease the pain considerably. Do not use HOT heat, and never apply heat for longer than 30 minutes. The continuous heat can invisibly damage skin and muscles -- even when no burn is seen on the surface. Damaged muscles can make you MORE sore. Toradol Injection You have been given an injection of ketorolac tromethamine (Toradol). This is an excellent, safe drug for pain control. It also has potent antiinflammatory action. You should have significant pain relief within about one hour. Toradol is not addicting and is non-sedating. It does not interfere with driving or work. Call or return if you develop itching, hives, shortness of breath, or rash. Stretching Exercises for the Back The physician has recommended that you begin stretching exercises for your back. These are often used even while the back is painful. However, you should notify the physician if the activities seem to increase your pain. PELVIC TILT: Lie flat on your back with knees bent. Tighten your stomach and buttock muscles so it flattens your lower back against the floor. Hold 10 seconds. Repeat 10 times, twice daily. KNEE RAISE: Lying on the back with knees bent, raise one knee to your chest, then the other. Hold both knees against the chest 10 seconds, then lower one knee at a time. Repeat 10 times, twice daily. PARTIAL TRUNK RAISE: Lie face down, arms at your sides. Keeping your waist on the floor, use your arms raise your chest up. Support yourself on your elbows for 30 seconds. Repeat twice daily, increasing the time to two minutes as you recover. FOLLOW-UP CARE: If you have been referred to a physician for follow-up care, call the physicians office for an appointment as you were instructed or within the next two days. If you experience worsening or a significant change in your symptoms, notify the physician immediately or return to the Emergency Department at any time for re-evaluation. Forms: Elevated Blood Pressure Referrals: ROSLYN TOLEDO MD [Primary Care Provider] - Follow up as needed [facility] [Provider Group] - Follow up as needed
[2019-08-19 10:05] LABS: AMORPHOUS SEDIMENT,URINE TRACE /HPF; APPEARANCE,URINE CLOUDY; BILIRUBIN,URINE NEGATIVE (NEGATIVE); COLOR,URINE YELLOW; GLUCOSE, URINE NEGATIVE (NEGATIVE); KETONES,URINE TRACE mg/dL (NEGATIVE); PROTEIN,URINE NEGATIVE (NEGATIVE); URINE SPECIFIC GRAVITY 1.016; UROBILINOGEN,URINE NEGATIVE mg/dL (<2.0)
--- NOTE | 2019-08-19 10:33 | RADIOLOGY REPORT (SQ) ---
EXAM DESCRIPTION: HAND LEFT 3 VIEWS IMAGES COMPLETED DATE/TIME: 08/19/2019 10:18 am REASON FOR STUDY: pain COMPARISON: None. EXAM PARAMETERS: NUMBER OF VIEWS: Three views. TECHNIQUE: AP, lateral and oblique radiographic images acquired of the left hand. LIMITATIONS: None. FINDINGS: MINERALIZATION: Osteopenia. BONES: No acute fracture or dislocation. JOINTS: The normal carpal alignment is preserved. There is osteoarthrosis of vein 1st CMC joint and of several IP joints. There is chondrocalcinosis superior and lateral to the distal radius. There is no periarticular osteopenia or erosion. SOFT TISSUES: No soft tissue swelling or radiopaque foreign body. OTHER: No other finding. IMPRESSION: No acute osseous abnormality of the left hand. TECHNICAL DOCUMENTATION: JOB ID: [id number] 2010 [employer]- All Rights Reserved Reading location - IP/workstation name: [email or web address]
--- NOTE | 2019-08-19 10:41 | RADIOLOGY REPORT (SQ) ---
EXAM DESCRIPTION: L SPINE WHOLE IMAGES COMPLETED DATE/TIME: 08/19/2019 10:18 am REASON FOR STUDY: pain COMPARISON: AP, lateral common oblique views of the lumbar spine from 02/10/2019. NUMBER OF VIEWS: Five views including obliques. TECHNIQUE: AP, lateral, oblique, and sacral radiographic images acquired of the lumbar spine. LIMITATIONS: None. FINDINGS: MINERALIZATION: Osteopenia. SEGMENTATION: There are 5 lumbar-type vertebral bodies. There is no transitional anatomy at the lumb osacral junction. ALIGNMENT: Levoconvex scoliotic curvature of the lumbar spine centered at L3, grade 1 retrolisthesis of L1 relative to L2 and L2 relative to L3, and grade 1 anterolisthesis of L4 relative to L5. VERTEBRAE: Chronic compression fracture of the superior endplate of the T11 vertebral body with appro ximately 50% loss of the vertebral body height. There is no retropulsion. DISCS: The intervertebral discs from T11-T12 to L5-S1 are narrowed. POSTERIOR ELEMENTS: No part interarticularis defect. The facet joints from L2-L3 to L5-S1 are sclero tic. HARDWARE: None in the spine. PARASPINAL SOFT TISSUES: Vascular calcifications. PELVIS: Intact. OTHER: No other findings. IMPRESSION: 1. No acute fracture or malalignment of the lumbar spine. 2. Chronic compression fracture of the superior endplate of the T11 vertebral body with approximatel y 50% loss of the vertebral body height. TECHNICAL DOCUMENTATION: JOB ID: [id number] 2010 [employer]- All Rights Reserved Reading location - IP/workstation name: [email or web address]
[2019-08-19] MEDS ORDERED: HYDROCODONE/ACETAMINOPHEN 5-325 MG TABLET PO ONE (11:14)
[2019-08-19] MEDS ORDERED: KETOROLAC TROMETHAMINE INJ/PF 30 MG/1 ML SDV IM ONE (11:14)
[2019-08-19 12:45] VITALS: BP 114/90
== END 2019-08-19 12:16 | disposition home or self-care (01) ==
LOC: ER 08:25
DX: G89.29 Other chronic pain (principal); M54.9 Dorsalgia, unspecified; R73.03 Prediabetes; E78.00 Pure hypercholesterolemia, unspecified; I10 Essential (primary) hypertension; J44.9 Chronic obstructive pulmonary disease, unspecified
CPT/HCPCS: 99284; 96372; 81001; 73130; 72110; J1885; A9270

== ENCOUNTER 2019-08-20 15:24 | Emergency (ER) | payer MEDICARE, MEDICAID ==
[2019-08-20 16:41] LABS: ABSOLUTE BASOPHILS # (AUTO) 0.1 10^3/uL (0.0-0.2); ABSOLUTE EOSINOPHILS # (AUTO) 0.1 10^3/uL (0.0-0.6); ABSOLUTE LYMPHOCYTES (AUTO) 1.9 10^3/uL (0.5-4.7); ABSOLUTE MONOCYTES (AUTO) 0.8 10^3/uL (0.1-1.4); ABSOLUTE NEUT (AUTO) 6.3 10^3/uL (1.7-8.2); BASOPHILS % (AUTO) 0.7 % (0-2); EOSINOPHILS % (AUTO) 0.6 % (0-6); HEMATOCRIT 35.6 % (36.0-47.0); HEMOGLOBIN 12.1 g/dL (12.0-15.5); LYMPHOCYTES % (AUTO) 21.2 % (13-45); MEAN CORPUSCULAR HEMOGLOBIN 26.4 pg (27.0-33.4); MEAN CORPUSCULAR HGB CONC 33.9 g/dL (32.0-36.0); MEAN CORPUSCULAR VOLUME 78 fl (80-97); MONOCYTES % (AUTO) 8.9 % (3-13); PLATELET COUNT 431 10^3/uL (150-450); RED BLOOD COUNT 4.57 10^6/uL (3.72-5.28); RED CELL DISTRIBUTION WIDTH 16.9 % (11.5-14.0); SEGMENTED NEUTROPHILS % (AUTO) 68.6 % (42-78); TOTAL CELLS COUNTED % (AUTO) 100 %; WHITE BLOOD COUNT 9.2 10^3/uL (4.0-10.5)
[2019-08-20 16:49] LABS: ALBUMIN 4.1 g/dL (3.5-5.0); ALKALINE PHOSPHATASE 66 U/L (38-126); ANION GAP 8 (5-19); ASPARTATE AMINO TRANSFERASE 30 U/L (14-36); BILIRUBIN,TOTAL 0.4 mg/dL (0.2-1.3); BLOOD UREA NITROGEN 11 mg/dL (7-20); CALCIUM 9.9 mg/dL (8.4-10.2); CARBON DIOXIDE 26 mmol/L (22-30); CHLORIDE 103 mmol/L (98-107); GLUCOSE 127 mg/dL (75-110); TOTAL PROTEIN 7.2 g/dL (6.3-8.2)
[2019-08-20] MEDS ORDERED: POTASSI CL 20 MEQ/50 ML RIDER 20 MEQ/50 ML RTUPB IV ONE (16:59)
[2019-08-20] MEDS ORDERED: ONDANSETRON HCL INJ/PF 4 MG/2 ML SDV IV ONE (18:57)
[2019-08-20] MEDS ORDERED: MORPHINE SULFATE 10 MG/ML INJ IV ONE ×2 (18:57→21:57)
[2019-08-20] MEDS ORDERED: NORMAL SALINE 500 ML IV ONE (18:58)
[2019-08-20] MEDS ORDERED: POTASSIUM CHLORIDE 10 MEQ TABLET.ER PO ONE (20:04)
[2019-08-20 20:54] LABS: APPEARANCE,URINE CLOUDY; BILIRUBIN,URINE NEGATIVE (NEGATIVE); COLOR,URINE YELLOW; GLUCOSE, URINE NEGATIVE (NEGATIVE); KETONES,URINE NEGATIVE (NEGATIVE); LEUKOCYTE ESTERASE,URINE NEGATIVE (NEGATIVE); NITRITE,URINE NEGATIVE (NEGATIVE); PROTEIN,URINE NEGATIVE (NEGATIVE); URINE SPECIFIC GRAVITY 1.015; UROBILINOGEN,URINE NEGATIVE mg/dL (<2.0)
--- NOTE | 2019-08-20 21:13 | RADIOLOGY REPORT (SQ) ---
EXAM DESCRIPTION: CT ABDOMEN PELVIS WITH IV CONTRAST COMPLETED DATE/TME: 08/20/2019 19:00 CLINICAL HISTORY: 79 years Female abd pain/lumbar pain COMPARISON: 01/13/2019. TECHNIQUE: Contiguous axial images obtained through the abdomen and pelvis following IV contrast. Reformatted images obtained. This exam was performed according to our department optimization program which includes automated exposure control, adjustment of the mA and/or kv according to patient size and/or use of iterative reconstruction technique. FINDINGS: Areas of atelectasis in the lung bases. Fatty infiltration of the liver. The spleen and pancreas appear unremarkable. No adrenal masses. Nonobstructing right renal calculus. No hydronephrosis or obstructive uropathy. The gallbladder is visualized. No aneurysmal dilatation of the aorta. No bowel obstruction. The appendix is nonvisualized. No significant free fluid noted. IMPRESSION: No acute abnormality is identified. Nonobstructing right renal stone
[2019-08-20 23:06] VITALS: BP 141/63
--- NOTE | 2019-08-21 10:20 | ER Document Report ---
Entered by SANJU TINOCO SCRIBE 08/20/19 1747 Acting as scribe for:RAYMOND ORTEGA MD ED General <JOHNNY JAIN LING - Last Filed: 08/20/19 21:39> - General Information source: Patient TRAVEL OUTSIDE OF THE [place] IN LAST 30 DAYS: No - Related Data Home Medications: Oral DM med <RAYMOND ORTEGA - Last Filed: 08/21/19 10:20> - General Chief Complaint: Nausea/Vomiting Stated Complaint: NAUSEA/VOMITING Time Seen by Provider: 08/20/19 16:51 Primary Care Provider: ROSLYN TOLEDO MD [Primary Care Provider] - Follow up as needed Notes: This 79 year old female patient presents to the emergency department today with complaints of nausea and vomiting the past x5 days. Patient states she keeps vomiting and "can't keep anything down." Patient states she has abdominal pain. Patient states she fell x4-5 months ago, injured her back, and has had back pain since. Patient states she wants pain pills. Patient states she has asked Dr. Toledo and he will not prescribe pain pills. (RAYMOND ORTEGA) - Related Data Allergies/Adverse Reactions: No Known Allergies Allergy (Verified 08/20/19 19:06) Past Medical History - General Information source: Patient - Social History Smoking Status: Never Smoker Cigarette use (# per day): No Frequency of alcohol use: None Drug Abuse: None Lives with: Alone Family History: Reviewed & Not Pertinent Patient has suicidal ideation: No Patient has homicidal ideation: No - Past Medical History Cardiac Medical History: Reports: Hx Hypercholesterolemia, Hx Hypertension Pulmonary Medical History: Reports: Hx COPD Endocrine Medical History: Reports: Hx Diabetes Mellitus Type 2 - "borderline" Renal/ Medical History: Reports: Hx Ovarian Cysts Malignancy Medical History: Reports: Hx Cervical Cancer - uterine cancer GI Medical History: Reports: Hx Gastroesophageal Reflux Disease Musculoskeletal Medical History: Reports Hx Arthritis - back, shoulders, and neck, Reports Hx Musculoskeletal Deformity - Chronic back pain arthritis and back shoulder or neck Psychiatric Medical History: Reports: Hx Bipolar Disorder, Hx Depression Traumatic Medical History: Reports: Hx Fractures Past Surgical History: Reports: Hx Section, Hx Gynecologic Surgery, Hx Hysterectomy, Hx Orthopedic Surgery - L shoulder, Hx Tubal Ligation - Immunizations Immunizations up to date: Yes Hx Diphtheria, Pertussis, Tetanus Vaccination: Yes Hx Pneumococcal Vaccination: 02/01/13 <RAYMOND ORTEGA - Last Filed: 08/21/19 10:20> Review of Systems - Review of Systems Constitutional: No symptoms reported EENT: No symptoms reported Cardiovascular: No symptoms reported Respiratory: No symptoms reported Gastrointestinal: See HPI, Nausea, Vomiting Genitourinary: No symptoms reported Female Genitourinary: No symptoms reported Musculoskeletal: See HPI, Back pain Skin: No symptoms reported Hematologic/Lymphatic: No symptoms reported Neurological/Psychological: No symptoms reported -: Yes All other systems reviewed and negative <RAYMOND ORTEGA - Last Filed: 08/21/19 10:20> Physical Exam - General General appearance: Appears well, Alert - HEENT Head: Normocephalic, Atraumatic Eyes: Normal Pupils: PERRL Mouth/Lips: Other - Lips are dry. - Respiratory Respiratory status: No respiratory distress Chest status: Nontender Breath sounds: Normal Chest palpation: Normal - Cardiovascular Rhythm: Regular Heart sounds: Normal auscultation, S1 appreciated, S2 appreciated Murmur: No - Abdominal Inspection: Normal Distension: No distension Bowel sounds: Normal Tenderness: Tender. No: Guarding, Rebound - Extremities General upper extremity: Normal inspection. No: Edema General lower extremity: Normal inspection. No: Edema - Neurological Neuro grossly intact: Yes Cognition: Normal Orientation: AAOx4 Speech: Normal - Psychological Associated symptoms: Normal affect, Normal mood - Skin Skin Temperature: Warm Skin Moisture: Dry Skin Color: Normal <RAYMOND ORTEGA - Last Filed: 08/21/19 10:20> - Vital signs Vitals: Temp Pulse Resp Pulse Ox 97.2 F 70 18 97 08/20/19 16:25 08/20/19 16:25 08/20/19 16:25 08/20/19 16:25 Course - Laboratory Result Diagrams: 08/20/19 16:08 08/20/19 16:08 <JOHNNY JAIN IV - Last Filed: 08/20/19 21:39> - Laboratory Result Diagrams: 08/20/19 16:08 08/20/19 16:08 - Diagnostic Test Radiology reviewed: Image reviewed, Reports reviewed - Transfer of Care Care transferred to following provider: Dr Jain <RAYMOND ORTEGA - Last Filed: 08/21/19 10:20> - Re-evaluation Re-evalutation: 08/20/19 21:39 Results of ED MSE discussed with patient. All questions were answered prior to discharge. Patient repeatedly asked for "a few pain pills" to get her by until she gets her pain medication in 5 days. This MD agreed to write for 15 tramadol tablets. (JOHNNY JAIN IV) 08/20/19 20:31 Patient resting comfortably. Patient states her pain is better and appreciates what she has been given for pain management at this time. Currently not vomiting. Offered patient more IV potassium and she preferred not to receive IV potassium because it miner through the IV site. Patient agrees to take p.o. potassium at this time. 08/20/19 20:32 Currently pending urinalysis and CT scan of abdomen and pelvis with IV contrast only. (RAYMOND ORTEGA) - Vital Signs Vital signs: Temp Pulse Resp BP Pulse Ox 99 F 87 20 141/63 H 97 08/20/19 23:06 08/20/19 23:06 08/20/19 23:06 08/20/19 23:06 08/20/19 23:06 08/20/19 20:33 Vital signs stable no signs of tachycardia afebrile respiratory rate 18 and pulse oximetry 99. (RAYMOND ORTEGA) - Laboratory Laboratory results interpreted by me: 08/20/19 08/20/19 16:08 16:08 Hct 35.6 L MCV 78 L MCH 26.4 L RDW 16.9 H Potassium 3.0 L* Glucose 127 H 08/20/19 20:32 Initial potassium 3.0 glucose of 127 otherwise laboratories are within normal limits. Pending urinalysis at this time. (RAYMOND ORTEGA) - Diagnostic Test Radiology results interpreted by me: 08/21/19 10:18 ct scan of abd/pelvis with iv contrast only shows no acute process. incidental non obstructing renal stone (RAYMOND ORTEGA) Discharge <JOHNNY JAIN IV - Last Filed: 08/20/19 21:39> <RAYMOND ORTEGA - Last Filed: 08/21/19 10:20> - Discharge Clinical Impression: Nausea and vomiting in adult patient, Hypokalemia due to excessive gastroi ntestinal loss of potassium, Bipolar 1 disorder, Chronic back pain greater than 3 months duration Abdominal pain Qualifiers: Abdominal location: unspecified location Qualified Code(s): R10.9 - Unspecified abdominal pain Condition: Good Disposition: HOME, SELF-CARE Instructions: Vomiting ([facility]) Prescriptions: Tramadol HCl [Ultram 50 mg Tablet] 50 mg PO Q6HP PRN 5 Days #20 tab PRN Reason: Tramadol HCl [Ultram 50 mg Tablet] 50 mg PO Q8HP PRN 5 Days #15 tab PRN Reason: Ondansetron [Zofran Odt 4 mg Tablet] 1 - 2 tab PO Q8HP PRN #15 tab.rapdis PRN Reason: Potassium Chloride 20 meq PO BID 5 Days #10 tab.er.prt Potassium Chloride 20 meq PO BID 5 Days #10 tab.er.prt Ondansetron [Zofran Odt 4 mg Tablet] 1 - 2 tab PO Q4H PRN #15 tab.rapdis PRN Reason: For Nausea/Vomiting Referrals: ROSLYN TOLEDO MD [Primary Care Provider] - Follow up as needed I personally performed the services described in the documentation, reviewed and edited the documentation which was dictated to the scribe in my presence, and it accurately records my words and actions.
== END 2019-08-20 23:09 | disposition home or self-care (01) ==
LOC: ER 15:24
DX: R11.2 Nausea with vomiting, unspecified (principal); M54.9 Dorsalgia, unspecified; G89.29 Other chronic pain; W19.XXXA Unspecified fall, initial encounter; E87.6 Hypokalemia; R10.9 Unspecified abdominal pain; N20.0 Calculus of kidney; R10.819 Abdominal tenderness, unspecified site; F31.9 Bipolar disorder, unspecified; I10 Essential (primary) hypertension; J44.9 Chronic obstructive pulmonary disease, unspecified; Z85.42 Personal history of malignant neoplasm of other parts of uterus; Z85.41 Personal history of malignant neoplasm of cervix uteri
CPT/HCPCS: 96376; 99284; 96361; 96375; 96365; 96366; 36415; 83690; 85025; 80053; 81001; 74177; J2270; J2405; J3480; J7040; A9270

== ENCOUNTER 2019-08-22 10:16 | Emergency (ER) | payer MEDICARE, MEDICAID ==
[2019-08-22] MEDS ORDERED: ONDANSETRON HCL INJ/PF 4 MG/2 ML SDV IV ONE (10:39)
[2019-08-22] MEDS ORDERED: NORMAL SALINE 500 ML IV ONE (10:39)
[2019-08-22] MEDS ORDERED: KETOROLAC TROMETHAMINE INJ/PF 30 MG/1 ML SDV IV ONE (10:59)
[2019-08-22] MEDS ORDERED: PANTOPRAZOLE SODIUM 40 MG VIAL IV ONE (11:03)
[2019-08-22 11:07] LABS: ABSOLUTE BASOPHILS # (AUTO) 0.1 10^3/uL (0.0-0.2); ABSOLUTE EOSINOPHILS # (AUTO) 0.1 10^3/uL (0.0-0.6); ABSOLUTE LYMPHOCYTES (AUTO) 1.7 10^3/uL (0.5-4.7); ABSOLUTE MONOCYTES (AUTO) 0.7 10^3/uL (0.1-1.4); ABSOLUTE NEUT (AUTO) 5.7 10^3/uL (1.7-8.2); BASOPHILS % (AUTO) 0.9 % (0-2); EOSINOPHILS % (AUTO) 0.9 % (0-6); HEMATOCRIT 35.1 % (36.0-47.0); HEMOGLOBIN 11.9 g/dL (12.0-15.5); LYMPHOCYTES % (AUTO) 21.1 % (13-45); MEAN CORPUSCULAR HEMOGLOBIN 26.6 pg (27.0-33.4); MEAN CORPUSCULAR HGB CONC 33.9 g/dL (32.0-36.0); MEAN CORPUSCULAR VOLUME 79 fl (80-97); MONOCYTES % (AUTO) 8.1 % (3-13); PLATELET COUNT 417 10^3/uL (150-450); RED BLOOD COUNT 4.46 10^6/uL (3.72-5.28); RED CELL DISTRIBUTION WIDTH 16.6 % (11.5-14.0); TOTAL CELLS COUNTED % (AUTO) 100 %; WHITE BLOOD COUNT 8.2 10^3/uL (4.0-10.5)
[2019-08-22 11:21] LABS: ALBUMIN 3.7 g/dL (3.5-5.0); ALKALINE PHOSPHATASE 58 U/L (38-126); ANION GAP 7 (5-19); ASPARTATE AMINO TRANSFERASE 29 U/L (14-36); BILIRUBIN,TOTAL 0.6 mg/dL (0.2-1.3); BLOOD UREA NITROGEN 8 mg/dL (7-20); CALCIUM 9.3 mg/dL (8.4-10.2); CARBON DIOXIDE 23 mmol/L (22-30); CHLORIDE 105 mmol/L (98-107); GLUCOSE 102 mg/dL (75-110); POTASSIUM 3.6 mmol/L (3.6-5.0); TOTAL PROTEIN 6.8 g/dL (6.3-8.2)
--- NOTE | 2019-08-22 12:06 | RADIOLOGY REPORT (SQ) ---
EXAM DESCRIPTION: CHEST 2 VIEWS IMAGES COMPLETED DATE/TIME: 08/22/2019 11:51 am REASON FOR STUDY: cough COMPARISON: 08/08/2019 EXAM PARAMETERS: NUMBER OF VIEWS: two views TECHNIQUE: Digital Frontal and Lateral radiographic views of the chest acquired. RADIATION DOSE: NA LIMITATIONS: none FINDINGS: LUNGS AND PLEURA: No opacities, masses or pneumothorax. No pleural effusion. Mild chronic interstitial scarring at the bases. MEDIASTINUM AND HILAR STRUCTURES: No masses or contour abnormalities. HEART AND VASCULAR STRUCTURES: Heart normal size. No evidence for failure. BONES: No acute findings. HARDWARE: None in the chest. OTHER: No other significant finding. IMPRESSION: No evidence of acute cardiopulmonary process. TECHNICAL DOCUMENTATION: JOB ID: [id number] 2010 [employer]- All Rights Reserved Reading location - IP/workstation name: [email or web address]
--- NOTE | 2019-08-22 12:39 | ER Document Report ---
ED General - General Chief Complaint: Back Pain Stated Complaint: VOMITING Time Seen by Provider: 08/22/19 10:24 Primary Care Provider: ROSLYN TOLEDO MD [Primary Care Provider] - Follow up as needed TRAVEL OUTSIDE OF THE [place] IN LAST 30 DAYS: No - HPI Notes: Chief complaint: Low back pain, nausea and vomiting HPI: 79-year-old female followed by Dr. Toledo who is had long-term complaints of lower back pain with known osteoporosis and recurrent falls as well as recurrent episodes of nausea vomiting and diarrhea. She was recently hospitalized on the inpatient service by Dr. Toledo and worked up extensively with no clear-cut etiology established. She was subsequently seen here by Dr. Paredes 2 days ago and had a CT of abdomen and pelvis at that time with no s pecific abnormalities although she was hypokalemic with a potassium of 3.0. She was treated symptomatically and discharged. This lady lives by herself. She has repeatedly refused consideration of going to a group living facility. Back in today with complaints again of lower back pain and episodic vomiting. She says she did not sleep at all last night. She denies any melena or hematochezia. - Related Data Allergies/Adverse Reactions: No Known Allergies Allergy (Verified 08/20/19 19:06) Past Medical History - General Information source: Patient - Social History Smoking Status: Unknown if Ever Smoked Frequency of alcohol use: None Drug Abuse: None Family History: Reviewed & Not Pertinent Patient has suicidal ideation: No Patient has homicidal ideation: No - Past Medical History Cardiac Medical History: Reports: Hx Hypercholesterolemia, Hx Hypertension Pulmonary Medical History: Reports: Hx COPD Endocrine Medical History: Reports: Hx Diabetes Mellitus Type 2 - "borderline" Renal/ Medical History: Reports: Hx Ovarian Cysts Malignancy Medical History: Reports: Hx Cervical Cancer - uterine cancer GI Medical History: Reports: Hx Gastroesophageal Reflux Disease Musculoskeletal Medical History: Reports Hx Arthritis - back, shoulders, and neck, Reports Hx Musculoskeletal Deformity - Chronic back pain arthritis and b ack shoulder or neck Psychiatric Medical History: Reports: Hx Bipolar Disorder, Hx Depression Traumatic Medical History: Reports: Hx Fractures Past Surgical History: Reports: Hx Section, Hx Gynecologic Surgery, Hx Hysterectomy, Hx Orthopedic Surgery - L shoulder, Hx Tubal Ligation - Immunizations Immunizations up to date: Yes Hx Diphtheria, Pertussis, Tetanus Vaccination: Yes Hx Pneumococcal Vaccination: 02/01/13 Review of Systems - Review of Systems Notes: Constitutional: Negative for fever. HENT: Negative for sore throat. Eyes: Negative for visual changes. Cardiovascular: Negative for chest pain. Respiratory: Negative for shortness of breath. Gastrointestinal: Chronic episodic vomiting and diarrhea. Genitourinary: Negative for dysuria. Musculoskeletal: Chronic lower back pain. Skin: Negative for rash. Neurological: Negative for headaches, weakness or numbness. 10 point ROS negative except as marked above and in HPI. Physical Exam - Vital signs Vitals: Temp Pulse Resp BP Pulse Ox 99 F 99 22 H 151/96 H 94 08/22/19 10:25 08/22/19 10:25 08/22/19 10:25 08/22/19 10:25 08/22/19 10:25 - Notes Notes: GENERAL: Frail elderly female intermittently tearful complaining of back pain. SKIN: Good turgor no rashes. HEAD: Normocephalic atraumatic. EYES: PERRLA. EOMI. Conjunctivae and sclerae clear. EARS: CANALS AND TMS CLEAR. NOSE: CLEAR. MOUTH: Moist mucosa. Good dentition. No stridor or edema. No drooling. NECK: Supple. No masses or thyromegaly. No adenopathy. Carotids 2+ without bruits. No JVD. BACK: Symmetrical without tenderness. CHEST: Respirations unlabored. Breath sounds clear and symmetrical. HEART: Regular rhythm. No murmur gallop or rub. ABDOMEN: Soft nontender without masses, organomegaly or rebound. Bowel sounds normally active. No bruits. GENITALIA: Deferred. EXTREMITIES: No edema. No calf tenderness. Cap refill less than 1.5 seconds. Dorsalis pedis and posterior tibial pulses 3+ and symmetrical. NEUROLOGICAL: GCS 15. Alert and oriented x3. Fluent speech. Cranial nerves II through XII intact. Sensorimotor and cerebellar normal. Normal tone. PSYCHIATRIC: Appropriate affect. Course - Re-evaluation Re-evalutation: 08/22/19 12:39 Patient is chronically anemic and her hemoglobin is stable compared with her baseline. Stool was heme-negative here today. Her potassium is now within nor mal range and her chemistry profile is also otherwise unremarkable. She was given normal saline 500 cc IV and 15 mg of Toradol IV. She reported immediate improvement in her pain and thereafter requested discharge. We performed an EKG which demonstrated normal sinus rhythm with a rate of [address] changes. She appears stable for follow-up with Dr. Toledo. I am going to write her for 6 tramadol tablets until she can be seen by Dr. Toledo. - Vital Signs Vital signs: Temp Pulse Resp BP Pulse Ox 99 F 99 22 H 151/96 H 94 08/22/19 10:25 08/22/19 10:25 08/22/19 10:25 08/22/19 10:25 08/22/19 10:25 - Laboratory Result Diagrams: 08/22/19 10:40 08/22/19 10:40 Laboratory results interpreted by me: 08/22/19 08/22/19 10:40 10:40 Hgb 11.9 L Hct 35.1 L MCV 79 L MCH 26.6 L RDW 16.6 H Sodium 135.2 L Discharge - Discharge Clinical Impression: Low back pain Qualifiers: Chronicity: unspecified Back pain laterality: bilateral Sciatica presence: without sciatica Qualified Code(s): M54.5 - Low back pain Vomiting Qualifiers: Vomiting Intractability: unspecified Condition: Stable Disposition: HOME, SELF-CARE Referrals: ROSLYN TOLEDO MD [Primary Care Provider] - Follow up as needed
[2019-08-22 12:44] VITALS: BP 141/64
--- NOTE | 2019-08-22 22:45 | EKG REPORT ---
SEVERITY:- ABNORMAL ECG - SINUS RHYTHM LEFT ANTERIOR FASCICULAR BLOCK LEFT VENTRICULAR HYPERTROPHY : Confirmed by: Nick Kern 22-Aug-2019 22:45:14
== END 2019-08-22 12:55 | disposition home or self-care (01) ==
LOC: ER 10:16
DX: M54.5 Low back pain (principal); G89.29 Other chronic pain; R11.2 Nausea with vomiting, unspecified; R19.7 Diarrhea, unspecified; D64.9 Anemia, unspecified; R29.6 Repeated falls; I10 Essential (primary) hypertension; J44.9 Chronic obstructive pulmonary disease, unspecified; Z85.41 Personal history of malignant neoplasm of cervix uteri; Z85.42 Personal history of malignant neoplasm of other parts of uterus
CPT/HCPCS: 93005; 99284; 96361; 96374; 96375; 36415; 83690; 83735; 85025; 80053; 71046; 93010; J1885; C9113; J2405; J7040

== ENCOUNTER 2019-08-31 22:54 | Emergency (ER) | payer MEDICARE, MEDICAID ==
--- NOTE | 2019-08-31 22:59 | ER Document Report ---
ED Medical Screen (RME) - General Chief Complaint: Vomiting Stated Complaint: BACK PAIN Time Seen by Provider: 08/31/19 22:55 Primary Care Provider: ROSLYN TOLEDO MD [Primary Care Provider] - Follow up as needed Mode of Arrival: Ambulatory Information source: Patient Notes: 79-year-old female with history of diabetes, high blood pressure, bipolar, chronic vomiting and chronic back pain presents to the emergency department with complaints of severe low back pain and vomiting. She reports she has been vomiting for the past 2 days. I reminded patient that was she has been to the Emergency Department several times for the vomiting. She reports no she has only been vomiting for 2 days. She is moaning, c/o severe low back pain that she has had for several years. She denies recent trauma. She reports in the past she has taken oxycodone for her low back pain. She reports they only give her Ultram for the pain now. I have greeted and performed a rapid initial assessment of this patient. A comprehensive ED assessment and evaluation of the patient, analysis of test results and completion of the medical decision making process will be conducted by additional ED providers. TRAVEL OUTSIDE OF THE [place] IN LAST 30 DAYS: No - Related Data Allergies/Adverse Reactions: No Known Allergies Allergy (Verified 08/20/19 19:06) Past Medical History - Past Medical History Cardiac Medical History: Reports: Hx Hypercholesterolemia, Hx Hypertension Pulmonary Medical History: Reports: Hx COPD Endocrine Medical History: Reports: Hx Diabetes Mellitus Type 2 - "borderline" Renal/ Medical History: Reports: Hx Ovarian Cysts Malignancy Medical History: Reports: Hx Cervical Cancer - uterine cancer GI Medical History: Reports: Hx Gastroesophageal Reflux Disease Musculoskeltal Medical History: Reports Hx Arthritis - back, shoulders, and neck, Reports Hx Musculoskeletal Deformity - Chronic back pain arthritis and back shoulder or neck Psychiatric Medical History: Reports: Hx Bipolar Disorder, Hx Depression Traumatic Medical History: Reports: Hx Fractures Past Surgical History: Reports: Hx Section, Hx Gynecologic Surgery, Hx Hysterectomy, Hx Orthopedic Surgery - L shoulder, Hx Tubal Ligation - Immunizations Immunizations up to date: Yes Hx Diphtheria, Pertussis, Tetanus Vaccination: Yes Physical Exam - Vital signs Vitals: Temp Pulse Resp BP Pulse Ox 98.2 F 95 22 H 150/63 H 98 08/31/19 23:02 08/31/19 23:02 08/31/19 23:02 08/31/19 23:02 08/31/19 23:02 Course - Vital Signs Vital signs: Temp Pulse Resp BP Pulse Ox 98.2 F 95 22 H 150/63 H 98 08/31/19 23:02 08/31/19 23:02 08/31/19 23:02 08/31/19 23:02 08/31/19 23:02 Doctor's Discharge - Discharge Referrals: ROSLYN TOLEDO MD [Primary Care Provider] - Follow up as needed
[2019-09-01] MEDS ORDERED: KETOROLAC TROMETHAMINE INJ/PF 30 MG/1 ML SDV IM ONE (00:03)
--- NOTE | 2019-09-01 00:17 | ER Document Report ---
ED General - General Chief Complaint: Vomiting Stated Complaint: BACK PAIN Time Seen by Provider: 08/31/19 22:55 Primary Care Provider: ROSLYN TOLEDO MD [Primary Care Provider] - Follow up as needed Mode of Arrival: Ambulatory Information source: Patient Notes: liberty Brasher notes 79-year-old female with history of diabetes, high blood pressure, bipolar, chronic vomiting and chronic back pain presents to the emergency department with complaints of severe low back pain and vomiting. She reports she has been vomiting for the past 2 days. I reminded patient that was she has been to the Emergency Department several times for the vomiting. She reports no she has only been vomiting for 2 days. She is moaning, c/o severe low back pain that she has had for several years. She denies recent trauma. She reports in the past she has taken oxycodone for her low back pain. She reports they only give her Ultram for the pain now. my notes 79-year-old female arrives with chief complaint of chronic nausea and vomiting and several month history of falling with a sacral fracture and therefore chronic low back pain. She reports she has had back pain however for years. Patient sees Dr. Toledo but she is thinking about firing him because she continues to have the symptoms. Patient reports her current symptoms began yesterday. Patient does have a Hep-Lock in place. TRAVEL OUTSIDE OF THE [place] IN LAST 30 DAYS: No - HPI Onset: Yesterday Onset/Duration: Sudden Quality of pain: Achy Severity: Mild Associated symptoms: Nausea - Patient has a history of nausea vomiting on old records., Vomiting Exacerbated by: Denies Relieved by: Denies Similar symptoms previously: Yes Recently seen / treated by doctor: Yes - Related Data Allergies/Adverse Reactions: No Known Allergies Allergy (Verified 08/20/19 19:06) Past Medical History - General Information source: Patient - Social History Smoking Status: Unknown if Ever Smoked Smoking Education Provided: No Frequency of alcohol use: None Drug Abuse: None Family History: Reviewed & Not Pertinent Patient has suicidal ideation: No Patient has homicidal ideation: No - Past Medical History Cardiac Medical History: Reports: Hx Hypercholesterolemia, Hx Hypertension Pulmonary Medical History: Reports: Hx COPD Endocrine Medical History: Reports: Hx Diabetes Mellitus Type 2 - "borderline" Renal/ Medical History: Reports: Hx Ovarian Cysts Malignancy Medical History: Reports: Hx Cervical Cancer - uterine cancer GI Medical History: Reports: Hx Gastroesophageal Reflux Disease Musculoskeletal Medical History: Reports Hx Arthritis - back, shoulders, and neck, Reports Hx Musculoskeletal Deformity - Chronic back pain arthritis and back shoulder or neck Psychiatric Medical History: Reports: Hx Bipolar Disorder, Hx Depression Traumatic Medical History: Reports: Hx Fractures Past Surgical History: Reports: Hx Section, Hx Gynecologic Surgery, Hx Hysterectomy, Hx Orthopedic Surgery - L shoulder, Hx Tubal Ligation - Immunizations Immunizations up to date: Yes Hx Diphtheria, Pertussis, Tetanus Vaccination: Yes Hx Pneumococcal Vaccination: 02/01/13 Physical Exam - Vital signs Vitals: Temp 98.2 F 08/31/19 22:54 Interpretation: Hypertensive, Tachypneic - General General appearance: Alert - HEENT Head: Normocephalic, Atraumatic Eyes: Normal Conjunctiva: Normal Cornea: Normal Extraocular movements intact: Yes Eyelashes: Normal Pupils: PERRL Mouth/Lips: Normal Pharynx: Normal Neck: Normal - Respiratory Respiratory status: No respiratory distress Chest status: Nontender Breath sounds: Normal Chest palpation: Normal - Cardiovascular Rhythm: Regular Heart sounds: Normal auscultation Murmur: No - Abdominal Inspection: Normal Distension: No distension Bowel sounds: Normal Tenderness: Nontender Organomegaly: No organomegaly - Back Back: Tender - @suprapubic - Extremities General upper extremity: Normal inspection General lower extremity: Normal inspection - Neurological Neuro grossly intact: Yes Cognition: Normal Orientation: AAOx4 [place] Coma Scale Eye Opening: Spontaneous Tim Coma Scale Verbal: Oriented [place] Coma Scale Motor: Obeys Commands Tim Coma Scale Total: 15 Speech: Normal Cranial nerves: Normal Cerebellar coordination: Normal Motor strength normal: LUE, RUE, LLE, RLE - Psychological Associated symptoms: Anxious - Skin Skin Temperature: Warm Skin Moisture: Dry Course - Vital Signs Vital signs: Temp Pulse Resp BP Pulse Ox 98.3 F 92 16 156/104 H 94 09/01/19 03:58 09/01/19 03:58 09/01/19 03:58 09/01/19 03:58 09/01/19 03:58 - Laboratory Result Diagrams: 09/01/19 03:00 09/01/19 03:00 Laboratory results interpreted by me: 09/01/19 09/01/19 09/01/19 02:40 03:00 03:00 Hct 35.3 L MCV 77 L MCH 26.5 L RDW 16.4 H Sodium 134.0 L BUN 6 L Lipase 22.8 L Urine Ketones TRACE H Critical Care Note - Critical Care Note Total time excluding time spent on procedures (mins): 90 Discharge - Discharge Clinical Impression: Back pain Qualifiers: Back pain location: back pain in unspecified location Chronicity: chronic Back pain laterality: unspecified Qualified Code(s): M54.9 - Dorsalgia, unspecified; G89.29 - Other chronic pain Condition: Good Disposition: HOME, SELF-CARE Additional Instructions: Follow-up with Dr. Toledo.. Your doctor physician and take medicines as directed encourage fluids Prescriptions: Chlorzoxazone [Parafon Forte Dsc 500 Mg Tablet] 500 mg PO BID #10 tablet Referrals: ROSLYN TOLEDO MD [Primary Care Provider] - Follow up as needed
--- NOTE | 2019-09-01 02:18 | RADIOLOGY REPORT (SQ) ---
EXAM DESCRIPTION: XR ABDOMEN 1 VIEW (KUB) COMPLETED DATE/TME: 09/01/2019 00:37 CLINICAL HISTORY: 79 years, Female, LBP COMPARISON: 08/19/2019 abdomen NUMBER OF VIEWS: 1 TECHNIQUE: AP abdomen LIMITATIONS: None. FINDINGS: Osteopenia. Nonspecific bowel gas pattern. Degenerative change with mild levoconvex scoliosis lumbar spine. Redemonstrated is an approximately 4 mm calculus projecting over the inferior right renal shadow. IMPRESSION: Right renal calculus, as before. Nonspecific bowel gas pattern copyright 2010 [employer]- All Rights Reserved
[2019-09-01 02:55] LABS: APPEARANCE,URINE CLEAR; BILIRUBIN,URINE NEGATIVE (NEGATIVE); COLOR,URINE STRAW; GLUCOSE, URINE NEGATIVE (NEGATIVE); KETONES,URINE TRACE mg/dL (NEGATIVE); LEUKOCYTE ESTERASE,URINE NEGATIVE (NEGATIVE); NITRITE,URINE NEGATIVE (NEGATIVE); PROTEIN,URINE NEGATIVE (NEGATIVE); URINE SPECIFIC GRAVITY 1.003; UROBILINOGEN,URINE NEGATIVE mg/dL (<2.0)
[2019-09-01 03:08] LABS: ABSOLUTE BASOPHILS # (AUTO) 0.1 10^3/uL (0.0-0.2); ABSOLUTE EOSINOPHILS # (AUTO) 0.1 10^3/uL (0.0-0.6); ABSOLUTE LYMPHOCYTES (AUTO) 1.9 10^3/uL (0.5-4.7); ABSOLUTE MONOCYTES (AUTO) 0.5 10^3/uL (0.1-1.4); ABSOLUTE NEUT (AUTO) 6.4 10^3/uL (1.7-8.2); BASOPHILS % (AUTO) 1.1 % (0-2); EOSINOPHILS % (AUTO) 1.2 % (0-6); HEMATOCRIT 35.3 % (36.0-47.0); HEMOGLOBIN 12.1 g/dL (12.0-15.5); LYMPHOCYTES % (AUTO) 21.2 % (13-45); MEAN CORPUSCULAR HEMOGLOBIN 26.5 pg (27.0-33.4); MEAN CORPUSCULAR HGB CONC 34.4 g/dL (32.0-36.0); MEAN CORPUSCULAR VOLUME 77 fl (80-97); PLATELET COUNT 344 10^3/uL (150-450); RED BLOOD COUNT 4.57 10^6/uL (3.72-5.28); RED CELL DISTRIBUTION WIDTH 16.4 % (11.5-14.0); SEGMENTED NEUTROPHILS % (AUTO) 70.5 % (42-78); TOTAL CELLS COUNTED % (AUTO) 100 %
[2019-09-01 03:24] LABS: ALBUMIN 3.9 g/dL (3.5-5.0); ALKALINE PHOSPHATASE 65 U/L (38-126); ANION GAP 12 (5-19); ASPARTATE AMINO TRANSFERASE 36 U/L (14-36); BILIRUBIN,TOTAL 0.9 mg/dL (0.2-1.3); BLOOD UREA NITROGEN 6 mg/dL (7-20); CALCIUM 9.4 mg/dL (8.4-10.2); CARBON DIOXIDE 23 mmol/L (22-30); CHLORIDE 99 mmol/L (98-107); GLUCOSE 89 mg/dL (75-110); POTASSIUM 3.6 mmol/L (3.6-5.0); TOTAL PROTEIN 7.1 g/dL (6.3-8.2)
[2019-09-01] MEDS ORDERED: ACETAMINOPHEN 325 MG TABLET PO ONE (04:13)
[2019-09-01 04:34] VITALS: BP 154/104
== END 2019-09-01 04:20 | disposition home or self-care (01) ==
LOC: ER 22:54
DX: G89.29 Other chronic pain (principal); M54.5 Low back pain; R11.10 Vomiting, unspecified; I10 Essential (primary) hypertension; J44.9 Chronic obstructive pulmonary disease, unspecified; Z79.899 Other long term (current) drug therapy; Z87.81 Personal history of (healed) traumatic fracture
CPT/HCPCS: 99285; 96372; 36415; 83690; 85025; 80053; 81001; 74018; A9270; J1885

== ENCOUNTER 2019-09-16 13:44 | Emergency (ER) | payer MEDICARE, MEDICAID ==
[2019-09-16 14:16] LABS: ABSOLUTE BASOPHILS # (AUTO) 0.1 10^3/uL (0.0-0.2); ABSOLUTE EOSINOPHILS # (AUTO) 0.2 10^3/uL (0.0-0.6); ABSOLUTE LYMPHOCYTES (AUTO) 1.6 10^3/uL (0.5-4.7); ABSOLUTE MONOCYTES (AUTO) 0.8 10^3/uL (0.1-1.4); ABSOLUTE NEUT (AUTO) 10.6 10^3/uL (1.7-8.2); BASOPHILS % (AUTO) 0.9 % (0-2); EOSINOPHILS % (AUTO) 1.3 % (0-6); HEMATOCRIT 33.2 % (36.0-47.0); HEMOGLOBIN 11.1 g/dL (12.0-15.5); LYMPHOCYTES % (AUTO) 12.2 % (13-45); MEAN CORPUSCULAR HEMOGLOBIN 25.8 pg (27.0-33.4); MEAN CORPUSCULAR HGB CONC 33.3 g/dL (32.0-36.0); MEAN CORPUSCULAR VOLUME 77 fl (80-97); MONOCYTES % (AUTO) 6.1 % (3-13); PLATELET COUNT 413 10^3/uL (150-450); SEGMENTED NEUTROPHILS % (AUTO) 79.5 % (42-78); TOTAL CELLS COUNTED % (AUTO) 100 %; WHITE BLOOD COUNT 13.4 10^3/uL (4.0-10.5)
[2019-09-16 14:23] LABS: ALBUMIN 3.7 g/dL (3.5-5.0); ANION GAP 10 (5-19); BLOOD UREA NITROGEN 8 mg/dL (7-20); CALCIUM 8.8 mg/dL (8.4-10.2); CARBON DIOXIDE 23 mmol/L (22-30); CHLORIDE 99 mmol/L (98-107); GLUCOSE 77 mg/dL (75-110); POTASSIUM 3.3 mmol/L (3.6-5.0)
[2019-09-16 14:24] LABS: ALKALINE PHOSPHATASE 58 U/L (38-126); ASPARTATE AMINO TRANSFERASE 30 U/L (14-36); BILIRUBIN,TOTAL 0.5 mg/dL (0.2-1.3); TOTAL PROTEIN 6.8 g/dL (6.3-8.2)
[2019-09-16] MEDS ORDERED: POTASSIUM CHLORIDE 20 MEQ PACKET PO ONE (14:40)
[2019-09-16] MEDS ORDERED: DEXAMETHASONE SOD PHOS INJ 10 MG/1 ML VIAL IM ONE (15:01)
--- NOTE | 2019-09-16 16:08 | RADIOLOGY REPORT (SQ) ---
EXAM DESCRIPTION: CT ABD/PELVIS WITH IV ONLY IMAGES COMPLETED DATE/TIME: 09/16/2019 3:52 pm REASON FOR STUDY: abdominal pain; low back pain COMPARISON: 08/20/2019 TECHNIQUE: CT scan of the abdomen and pelvis performed using helical scanning technique with dynamic intravenous contrast injection. No oral contrast. Images reviewed with lung, soft tissue, and bone windows. Reconstructed coronal and sagittal MPR images reviewed. Delayed images for evaluation of the urinary system also acquired. All images stored on PACS. All CT scanners at this facility use dose modulation, iterative reconstruction, and/or weight based d osing when appropriate to reduce radiation dose to as low as reasonably achievable (ALARA). [facility]: Dose Right [facility]: CareDose [facility]: Dose Right [facility]: Teradose 4D [facility]: [employer] CONTRAST TYPE AND DOSE: contrast/concentration: Isovue 350.00 mg/ml; Total Contrast Delivered: 88.0 ml; Total Saline Delivered: 70.0 ml RENAL FUNCTION: BUN 10, CREATININE 0.78 RADIATION DOSE: CT Rad equipment meets quality standard of care and radiation dose reduction techniq ues were employed. CTDIvol: 10.6 - 14.7 mGy. DLP: 1422 mGy-cm.. LIMITATIONS: None. FINDINGS: LOWER CHEST: There is atelectasis in the right lung base. LIVER: Mild decreased attenuation throughout the liver consistent with fatty infiltration. No focal lesions. SPLEEN: Normal size. No focal lesions. PANCREAS: No masses. No significant calcifications. No adjacent inflammation or peripancreatic fluid collections. Pancreatic duct not dilated. GALLBLADDER: Mild gallbladder distention. No stones or inflammation. ADRENAL GLANDS: No significant masses or asymmetry. RIGHT KIDNEY AND URETER: Small right renal cyst. No significant calcifications. No hydronephrosis or hydroureter. LEFT KIDNEY AND URETER: No solid masses. No significant calcifications. No hydronephrosis or hydr oureter. AORTA AND VESSELS: No aneurysm. No dissection. Renal arteries, SMA, celiac without stenosis. RETROPERITONEUM: No retroperitoneal adenopathy, hemorrhage or masses. BOWEL AND PERITONEAL CAVITY: No masses or inflammatory changes. No free fluid or peritoneal masses. Large amount of stool throughout the colon. This is most marked involving the sigmoid colon and rect al wall. Mild inflammation surrounding the rectum. This may represent proctitis. APPENDIX: Not visualized. PELVIS: No mass. No free fluid. Normal bladder. ABDOMINAL WALL: No masses. No hernias. BONES: Old T11 compression deformity OTHER: No other significant finding. IMPRESSION: Large amount of stool throughout the colon most marked in the rectal vault and sigmoid. Proctitis cannot be excluded. There is perirectal inflammation new from prior study. TECHNICAL DOCUMENTATION: JOB ID: [id number] Quality ID # [id number]: Final reports with documentation of one or more dose reduction techniques (e.g., Au tomated exposure control, adjustment of the mA and/or kV according to patient size, use of iterative reconstruction technique) 2010 [employer]- All Rights Reserved Reading location - IP/workstation name: [email or web address]
[2019-09-16] MEDS ORDERED: KETOROLAC TROMETHAMINE INJ/PF 30 MG/1 ML SDV IV ONE (16:25)
--- NOTE | 2019-09-16 16:33 | ER Document Report ---
ED GI/ - General Chief Complaint: Nausea/Vomiting Stated Complaint: NAUSEA Time Seen by Provider: 09/16/19 14:18 Primary Care Provider: ROSLYN TOLEDO MD [Primary Care Provider] - Follow up in 3-5 days Notes: Patient is a 79-year-old female who presents to the emergency department with a chief complaint of back pain dysuria, nausea, and vomiting. Patient states that her symptoms started about 3 days ago. Patient states that she has back pain due to falls. According to her medical record, patient has history of multiple falls in the past. TRAVEL OUTSIDE OF THE [place] IN LAST 30 DAYS: No - Related Data Allergies/Adverse Reactions: No Known Allergies Allergy (Verified 09/16/19 14:15) Past Medical History - General Information source: Patient - Social History Smoking Status: Never Smoker Chew tobacco use (# tins/day): No Frequency of alcohol use: None Drug Abuse: None Family History: Reviewed & Not Pertinent Patient has homicidal ideation: No - Past Medical History Cardiac Medical History: Reports: Hx Hypercholesterolemia, Hx Hypertension Pulmonary Medical History: Reports: Hx COPD Endocrine Medical History: Reports: Hx Diabetes Mellitus Type 2 - "borderline" Renal/ Medical History: Reports: Hx Ovarian Cysts Malignancy Medical History: Reports: Hx Cervical Cancer - uterine cancer GI Medical History: Reports: Hx Gastroesophageal Reflux Disease Musculoskeletal Medical History: Reports Hx Arthritis - back, shoulders, and neck, Reports Hx Musculoskeletal Deformity - Chronic back pain arthritis and back shoulder or neck Psychiatric Medical History: Reports: Hx Bipolar Disorder, Hx Depression Traumatic Medical History: Reports: Hx Fractures Past Surgical History: Reports: Hx Section, Hx Gynecologic Surgery, Hx Hysterectomy, Hx Orthopedic Surgery - L shoulder, Hx Tubal Ligation - Immunizations Immunizations up to date: Yes Hx Diphtheria, Pertussis, Tetanus Vaccination: Yes Hx Pneumococcal Vaccination: 02/01/13 Review of Systems - Review of Systems Notes: REVIEW OF SYSTEMS: CONSTITUTIONAL : Denies recent illness. Denies recent unintentional weight loss. Denies fever, chills, or sweats. EENT: Denies eye, ear, throat, or mouth pain, discharge, or symptoms. Denies nasal or sinus congestion. CARDIOVASCULAR: Denies chest pain. RESPIRATORY: Denies shortness of breath, cough, congestion, difficulty breathing, or wheezing. GASTROINTESTINAL: See HPI. GENITOURINARY: See HPI. MUSCULOSKELETAL: See HPI. Denies joint pain or swelling. SKIN: Denies rash, itchiness, or lesions HEMATOLOGIC : Denies easy bruising or bleeding. LYMPHATIC: Denies swollen, painful, enlarged glands. NEUROLOGICAL: Denies no numbness or tingling denies weakness. Denies headache. Denies altered mental status. Denies alteration in speech. PSYCHIATRIC: Denies stress, anxiety, alteration in sleep patterns, or depression. All other systems reviewed and negative. Physical Exam - Vital signs Vitals: Resp Pulse Ox 20 96 09/16/19 14:14 09/16/19 14:14 - Notes Notes: PHYSICAL EXAMINATION: GENERAL: Appears well, healthy, well-nourished, no acute distress. HEAD: Normocephalic, atraumatic. EYES: PERRL, conjunctiva normal, all extraocular movements intact, sclera nonicteric ENT: Moist mucous membranes. NECK: Supple, no noticeable swelling, redness, rash. Normal range of motion. LUNGS: Equal breath sounds bilaterally and clear to auscultation. No wheezes rales or rhonchi. CARDIOVASCULAR: S1-S2, regular rate, regular rhythm. Radial pulses 2+, normal. ABDOMEN: Normoactive bowel sounds. Soft, tender generalized abdomen, mild guarding, no rebound tenderness, and no masses palpated. EXTREMITIES: Normal strength and range of motion, no pitting or edema. No cyanosis. NEUROLOGICAL: Moves all extremities upon command. Strength 5/5 in all extremities. PSYCH: Normal mood, normal affect. SKIN: Warm, dry. No rash, lesions, ulcerations noted. Normal skin turgor. Course - Re-evaluation Re-evalutation: 09/16/19 14:34 Rectal exam done with TOPHER Bear at bedside. Patient did not have any carlito blood noted. Occult stool was negative. Patient did have a large amount of stool noted in her rectum as per my exam. Send patient for CT of the abdomen and pelvis, as she is very tender in her generalized abdomen.Hematology shows a leukocytosis of 13,400. Chemistries show a potassium of 3.3. 40 M EQ's of potassium ordered. Sodium 132.1. Awaiting urinalysis and CT results. 09/16/19 16:48 CT of the abdomen pelvis shows a large amount of stool in the rectum, as I felt this during my physical exam. Patient will be given an enema. 09/16/19 17:23 Report given to GIANCARLO Tatum. 09/17/19 08:00 Yesterday I handed off report to GIANCARLO Lucero. I do not see a note from her in regards to what happened for the rest of the shift, but the patient does not have a urinary tract infection. It appears that based off of the nurses note and orders, that the patient had another enema ordered, but the patient refused. I am guessing the patient was discharged with the discharge instructions given by myself. - Vital Signs Vital signs: Temp Pulse Resp BP Pulse Ox 97.6 F 92 18 148/82 H 96 09/16/19 19:56 09/16/19 19:56 09/16/19 19:56 09/16/19 19:56 09/16/19 19:56 - Laboratory Result Diagrams: 09/16/19 13:55 09/16/19 13:55 Laboratory results interpreted by me: 09/16/19 09/16/19 09/16/19 13:55 13:55 18:05 WBC 13.4 H Hgb 11.1 L Hct 33.2 L MCV 77 L MCH 25.8 L RDW 16.0 H Lymph % (Auto) 12.2 L Absolute Neuts (auto) 10.6 H Seg Neutrophils % 79.5 H Sodium 132.1 L Potassium 3.3 L Urine Blood SMALL H Ur Leukocyte Esterase TRACE H Discharge - Discharge Clinical Impression: Back pain Qualifiers: Back pain location: low back pain Chronicity: acute Back pain laterality: midline Sciatica presence: without sciatica Qualified Code(s): M54.5 - Low back pain Constipation Qualifiers: Constipation type: drug induced constipation Qualified Code(s): K59.03 - Drug induced constipation Nausea and vomiting Qualifiers: Vomiting type: unspecified Vomiting Intractability: unspecified Qualified Code(s): R11.2 - Nausea with vomiting, unspecified Condition: Stable Disposition: HOME, SELF-CARE Additional Instructions: You are seen today in emergency department for back pain. You are very constipated. You received an enema here in the emergency department. Please follow-up with your primary care provider regards to this visit. Please stop taking the tramadol, as this will make you more constipated. Start MiraLAX daily to help you have normal bowel movements. Prescriptions: Polyethylene Glycol 3350 [Miralax] 1 cap PO DAILY #527 powder Ondansetron [Zofran Odt 4 mg Tablet] 1 - 2 tab PO Q4H PRN #15 tab.rapdis PRN Reason: For Nausea/Vomiting Referrals: ROSLYN TOLEDO MD [Primary Care Provider] - Follow up in 3-5 days
[2019-09-16] MEDS ORDERED: MAGNESIUM CITRATE 296 ML BOTTLE PO ONE (17:19)
[2019-09-16] MEDS ORDERED: NORMAL SALINE 1000 ML 1,000 ML IV ONE (17:20)
[2019-09-16 18:27] LABS: AMORPHOUS SEDIMENT,URINE TRACE /HPF; APPEARANCE,URINE CLOUDY; BILIRUBIN,URINE NEGATIVE (NEGATIVE); COLOR,URINE YELLOW; GLUCOSE, URINE NEGATIVE (NEGATIVE); KETONES,URINE NEGATIVE (NEGATIVE); LEUKOCYTE ESTERASE,URINE TRACE (NEGATIVE); NITRITE,URINE NEGATIVE (NEGATIVE); PROTEIN,URINE NEGATIVE (NEGATIVE); URINE SPECIFIC GRAVITY 1.021; UROBILINOGEN,URINE NEGATIVE mg/dL (<2.0)
[2019-09-16] MEDS ORDERED: MINERAL OIL 30 ML UDCUP PR ONE (18:30)
[2019-09-16 19:58] VITALS: BP 148/82
--- NOTE | 2019-09-18 10:37 | EKG REPORT ---
SEVERITY:- ABNORMAL ECG - SINUS RHYTHM LEFT ANTERIOR FASCICULAR BLOCK LEFT VENTRICULAR HYPERTROPHY : Confirmed by: Nick Kern 18-Sep-2019 10:35:54
== END 2019-09-16 19:58 | disposition home or self-care (01) ==
LOC: ER 13:44
DX: K59.03 Drug induced constipation (principal); R11.2 Nausea with vomiting, unspecified; M54.5 Low back pain; R30.0 Dysuria; Z91.81 History of falling; E78.00 Pure hypercholesterolemia, unspecified; I10 Essential (primary) hypertension; R73.03 Prediabetes; Z90.710 Acquired absence of both cervix and uterus
CPT/HCPCS: 93005; 99285; 96372; 96361; 96374; 36415; 85025; 82270; 80053; 81001; 74177; 93010; A9270; J1885; J7030; J1100; J3490

== ENCOUNTER 2019-09-17 17:56 | Emergency (ER) | payer MEDICARE, MEDICAID ==
[2019-09-17] MEDS ORDERED: NORMAL SALINE 1000 ML 1,000 ML IV ONE (18:29)
[2019-09-17] MEDS ORDERED: ACETAMINOPHEN 325 MG TABLET PO ONE (18:30)
--- NOTE | 2019-09-17 18:31 | ER Document Report ---
ED Medical Screen (RME) - General Chief Complaint: Inability to Void Stated Complaint: "CAN'T URINATE" Time Seen by Provider: 09/17/19 18:28 Primary Care Provider: ROSLYN TOLEDO MD [Primary Care Provider] - Follow up as needed Mode of Arrival: Wheelchair Notes: 79-year-old female presented to ED for complaint of urinary retention. She states that she had a great big bowel movement last night family after leaving here but now she cannot urinate. She states she has not urinated since last night. She states she is having a lot of pain because of not being able to urinate. She was seen yesterday for severe constipation. I have greeted and performed a rapid initial assessment of this patient. A comprehensive ED assessment and evaluation of the patient, analysis of test re sults and completion of medical decision making process will be conducted by an additional ED providers. TRAVEL OUTSIDE OF THE [place] IN LAST 30 DAYS: No - Related Data Allergies/Adverse Reactions: No Known Allergies Allergy (Verified 09/16/19 14:15) Past Medical History - Social History Chew tobacco use (# tins/day): No Frequency of alcohol use: None Drug Abuse: None - Past Medical History Cardiac Medical History: Reports: Hx Hypercholesterolemia, Hx Hypertension Pulmonary Medical History: Reports: Hx COPD Endocrine Medical History: Reports: Hx Diabetes Mellitus Type 2 - "borderline" Renal/ Medical History: Reports: Hx Ovarian Cysts Malignancy Medical History: Reports: Hx Cervical Cancer - uterine cancer GI Medical History: Reports: Hx Gastroesophageal Reflux Disease Musculoskeltal Medical History: Reports Hx Arthritis - back, shoulders, and neck, Reports Hx Musculoskeletal Deformity - Chronic back pain arthritis and back shoulder or neck Psychiatric Medical History: Reports: Hx Bipolar Disorder, Hx Depression Traumatic Medical History: Reports: Hx Fractures Past Surgical History: Reports: Hx Section, Hx Gynecologic Surgery, Hx Hysterectomy, Hx Orthopedic Surgery - L shoulder, Hx Tubal Ligation - Immunizations Immunizations up to date: Yes Hx Diphtheria, Pertussis, Tetanus Vaccination: Yes Physical Exam - Vital signs Vitals: Temp Pulse Resp BP Pulse Ox 97.6 F 98 20 166/84 H 98 09/17/19 18:02 09/17/19 18:02 09/17/19 18:02 09/17/19 18:02 09/17/19 18:02 Course - Vital Signs Vital signs: Temp Pulse Resp BP Pulse Ox 98.9 F 98 20 166/84 H 98 09/17/19 18:25 09/17/19 18:02 09/17/19 18:02 09/17/19 18:02 09/17/19 18:02 Doctor's Discharge - Discharge Referrals: ROSLYN TOLEDO MD [Primary Care Provider] - Follow up as needed
--- NOTE | 2019-09-17 18:31 | ER Document Report ---
ED GI/ - General Chief Complaint: Urinary Problem Stated Complaint: "CAN'T URINATE" Time Seen by Provider: 09/17/19 18:28 Primary Care Provider: ROSLYN TOLEDO MD [Primary Care Provider] - Follow up as needed Mode of Arrival: Wheelchair Information source: Patient Notes: 79-year-old female presented to ED for complaint of urinary retention. She states that she had a great big bowel movement last night family after leaving here but now she cannot urinate. She states she has not urinated since last night. She states she is having a lot of pain because of not being able to urinate. She was seen yesterday for severe constipation. I have greeted and performed a rapid initial assessment of this patient. A comprehensive ED assessment and evaluation of the patient, analysis of test results and completion of medical decision making process will be conducted by an additional ED providers. TRAVEL OUTSIDE OF THE [place] IN LAST 30 DAYS: No - Related Data Allergies/Adverse Reactions: No Known Allergies Allergy (Verified 09/16/19 14:15) Past Medical History - Social History Family History: Reviewed & Not Pertinent - Past Medical History Cardiac Medical History: Reports: Hx Hypercholesterolemia, Hx Hypertension Pulmonary Medical History: Reports: Hx COPD Endocrine Medical History: Reports: Hx Diabetes Mellitus Type 2 - "borderline" Renal/ Medical History: Reports: Hx Ovarian Cysts Malignancy Medical History: Reports: Hx Cervical Cancer - uterine cancer GI Medical History: Reports: Hx Gastroesophageal Reflux Disease Musculoskeletal Medical History: Reports Hx Arthritis - back, shoulders, and neck, Reports Hx Musculoskeletal Deformity - Chronic back pain arthritis and back shoulder or neck Psychiatric Medical History: Reports: Hx Bipolar Disorder, Hx Depression Traumatic Medical History: Reports: Hx Fractures Past Surgical History: Reports: Hx Section, Hx Gynecologic Surgery, Hx Hysterectomy, Hx Orthopedic Surgery - L shoulder, Hx Tubal Ligation - Immunizations Immunizations up to date: Yes Hx Diphtheria, Pertussis, Tetanus Vaccination: Yes Hx Pneumococcal Vaccination: 02/01/13 Discharge - Discharge Referrals: ROSLYN TOLEDO MD [Primary Care Provider] - Follow up as needed
--- NOTE | 2019-09-17 20:35 | ER Document Report ---
ED General - General Chief Complaint: Inability to Void Stated Complaint: "CAN'T URINATE" Time Seen by Provider: 09/17/19 18:28 Primary Care Provider: ROSLYN TOLEDO MD [Primary Care Provider] - Follow up as needed Mode of Arrival: Wheelchair Information source: Patient TRAVEL OUTSIDE OF THE [place] IN LAST 30 DAYS: No - HPI Onset: Yesterday Onset/Duration: Gradual Quality of pain: Cramping, Pressure Severity: Moderate Pain Level: 3 Associated symptoms: Other - lower abdominal pain, bilateral flank pain Exacerbated by: Other - palpation of lower abdomen Relieved by: Denies Similar symptoms previously: Yes - patient has chronic back and abdominal pain but never urinary retention Recently seen / treated by doctor: Yes - patient seen in this ER yesterday Notes: 79 year old female with a history of HTN, HLD, DM, COPD here in the ER for inability to urinate and lower abdominal pain which started last night. The patient says she has never had anything like this before. The patient is also having lower back/flank pain bilaterally. The patient denies fevers, chills, sw eats, nausea, vomiting, diarrhea. The patient was seen in this ER yesterday and had a CT abd/pelvis then showing no acute process except for a large stool burden. The patient had a UA yesterday which was not consistent with a UTI. - Related Data Allergies/Adverse Reactions: No Known Allergies Allergy (Verified 09/17/19 21:02) Past Medical History - General Information source: Patient - Social History Smoking Status: Never Smoker Chew tobacco use (# tins/day): No Frequency of alcohol use: None Drug Abuse: None Family History: Reviewed & Not Pertinent Patient has homicidal ideation: No - Past Medical History Cardiac Medical History: Reports: Hx Hypercholesterolemia, Hx Hypertension Pulmonary Medical History: Reports: Hx COPD Endocrine Medical History: Reports: Hx Diabetes Mellitus Type 2 - "borderline" Renal/ Medical History: Reports: Hx Ovarian Cysts Malignancy Medical History: Reports: Hx Cervical Cancer - uterine cancer GI Medical History: Reports: Hx Gastroesophageal Reflux Disease Musculoskeletal Medical History: Reports Hx Arthritis - back, shoulders, and neck, Reports Hx Musculoskeletal Deformity - Chronic back pain arthritis and back shoulder or neck Psychiatric Medical History: Reports: Hx Bipolar Disorder, Hx Depression Traumatic Medical History: Reports: Hx Fractures Past Surgical History: Reports: Hx Section, Hx Gynecologic Surgery, Hx Hysterectomy, Hx Orthopedic Surgery - L shoulder, Hx Tubal Ligation - Immunizations Immunizations up to date: Yes Hx Diphtheria, Pertussis, Tetanus Vaccination: Yes Hx Pneumococcal Vaccination: 02/01/13 Review of Systems - Review of Systems Constitutional: No symptoms reported EENT: No symptoms reported Cardiovascular: No symptoms reported Respiratory: No symptoms reported Gastrointestinal: Abdominal pain Genitourinary: Flank pain, Retention Female Genitourinary: No symptoms reported Musculoskeletal: Back pain Skin: No symptoms reported Hematologic/Lymphatic: No symptoms reported Neurological/Psychological: No symptoms reported -: Yes All other systems reviewed and negative Physical Exam - Vital signs Vitals: Temp Pulse Resp BP Pulse Ox 97.6 F 98 20 166/84 H 98 09/17/19 18:02 09/17/19 18:02 09/17/19 18:02 09/17/19 18:02 09/17/19 18:02 - Notes Notes: GENERAL: Well-appearing, well-nourished and in no acute distress. HEAD: Atraumatic, normocephalic. EYES: Pupils equal round and reactive to light, extraocular movements intact, sclera anicteric, conjunctiva are normal. ENT: External ears normal, nares patent, oropharynx clear without exudates. Moist mucous membranes. NECK: Normal range of motion, supple without lymphadenopathy or JVD. LUNGS: Breath sounds clear to auscultation bilaterally and equal. No wheezes rales or rhonchi. HEART: Regular rate and rhythm without murmurs, rubs or gallops. ABDOMEN: Soft, mild tenderness in lower abdomen without rebound of guarding, normoactive bowel sounds. No masses appreciated. EXTREMITIES: Normal range of motion, no pitting or edema. No clubbing or cya nosis. BACK: Bilateral low back pain and flank pain on palpation. NEUROLOGICAL: Cranial nerves II through XII grossly intact. Normal speech, normal gait. PSYCH: Normal mood, normal affect. SKIN: Warm, Dry, normal turgor, no rashes or lesions noted. Course - Re-evaluation Re-evalutation: 09/17/19 23:25 The patient is here for abdominal pain, chronic back pain, and urinary retention. The patient was seen in this ER yesterday for abdominal pain and she had a CT then showing no acute process except for severe constipation. The pa tient was given Tylenol and Toradol in the ER today and she was told to continue using stool softeners. Patient told to follow up with aa Urologist for Urinary Issues such as retention. The patient has no signs of a UTI today and she had no signs of urinary obstruction on her CT yesterday. - Vital Signs Vital signs: Temp Pulse Resp BP Pulse Ox 97.6 F 98 20 158/72 H 100 09/17/19 20:29 09/17/19 18:02 09/17/19 18:02 09/17/19 23:01 09/17/19 23:01 - Laboratory Result Diagrams: 09/17/19 20:59 09/17/19 20:59 Laboratory results interpreted by me: 09/17/19 09/17/19 20:59 20:59 WBC 16.1 H MCV 76 L MCH 25.5 L RDW 16.5 H Lymph % (Auto) 11.0 L Absolute Neuts (auto) 13.4 H Seg Neutrophils % 82.9 H Sodium 133.6 L Carbon Dioxide 21 L Glucose 126 H AST 38 H - Diagnostic Test Radiology reviewed: Image reviewed, Reports reviewed Discharge - Discharge Clinical Impression: Urinary retention Abdominal pain Qualifiers: Abdominal location: lower abdomen, unspecified Qualified Code(s): R10.30 - Lower abdominal pain, unspecified Condition: Stable Disposition: HOME, SELF-CARE Instructions: Abdominal Pain ([facility]), Urinary Retention ([facility]) Additional Instructions: Follow up with your primary care doctor and also follow up with a Urologist for Urinary Issues. Drink plenty of fluids in the days to come and use stool softeners for constipation (you had a CT scan yesterday showing severe constipation). Use Tylenol and Motrin for pain. Referrals: ROSLYN TOLEDO MD [Primary Care Provider] - Follow up as needed
[2019-09-17 21:08] LABS: ABSOLUTE BASOPHILS # (AUTO) 0.1 10^3/uL (0.0-0.2); ABSOLUTE LYMPHOCYTES (AUTO) 1.8 10^3/uL (0.5-4.7); ABSOLUTE MONOCYTES (AUTO) 0.9 10^3/uL (0.1-1.4); ABSOLUTE NEUT (AUTO) 13.4 10^3/uL (1.7-8.2); BASOPHILS % (AUTO) 0.7 % (0-2); EOSINOPHILS % (AUTO) 0.1 % (0-6); HEMATOCRIT 37.1 % (36.0-47.0); HEMOGLOBIN 12.4 g/dL (12.0-15.5); MEAN CORPUSCULAR HEMOGLOBIN 25.5 pg (27.0-33.4); MEAN CORPUSCULAR HGB CONC 33.5 g/dL (32.0-36.0); MEAN CORPUSCULAR VOLUME 76 fl (80-97); MONOCYTES % (AUTO) 5.3 % (3-13); PLATELET COUNT 447 10^3/uL (150-450); RED BLOOD COUNT 4.89 10^6/uL (3.72-5.28); RED CELL DISTRIBUTION WIDTH 16.5 % (11.5-14.0); SEGMENTED NEUTROPHILS % (AUTO) 82.9 % (42-78); TOTAL CELLS COUNTED % (AUTO) 100 %; WHITE BLOOD COUNT 16.1 10^3/uL (4.0-10.5)
[2019-09-17 21:16] LABS: APPEARANCE,URINE CLEAR; BILIRUBIN,URINE NEGATIVE (NEGATIVE); COLOR,URINE STRAW; GLUCOSE, URINE NEGATIVE (NEGATIVE); KETONES,URINE NEGATIVE (NEGATIVE); LEUKOCYTE ESTERASE,URINE NEGATIVE (NEGATIVE); NITRITE,URINE NEGATIVE (NEGATIVE); PROTEIN,URINE NEGATIVE (NEGATIVE); URINE SPECIFIC GRAVITY 1.005; UROBILINOGEN,URINE NEGATIVE mg/dL (<2.0)
[2019-09-17 21:22] LABS: ALBUMIN 4.2 g/dL (3.5-5.0); ALKALINE PHOSPHATASE 64 U/L (38-126); ANION GAP 12 (5-19); ASPARTATE AMINO TRANSFERASE 38 U/L (14-36); BILIRUBIN,TOTAL 0.7 mg/dL (0.2-1.3); BLOOD UREA NITROGEN 10 mg/dL (7-20); CARBON DIOXIDE 21 mmol/L (22-30); CHLORIDE 101 mmol/L (98-107); GLUCOSE 126 mg/dL (75-110); POTASSIUM 3.6 mmol/L (3.6-5.0)
[2019-09-17 23:13] VITALS: BP 158/72
[2019-09-17] MEDS ORDERED: KETOROLAC TROMETHAMINE INJ/PF 30 MG/1 ML SDV IV ONE (23:23)
== END 2019-09-18 00:50 | disposition home or self-care (01) ==
LOC: ER 17:56
DX: K59.03 Drug induced constipation (principal); M54.5 Low back pain; R11.2 Nausea with vomiting, unspecified; M54.9 Dorsalgia, unspecified; R30.0 Dysuria; Z91.81 History of falling; I10 Essential (primary) hypertension; J44.9 Chronic obstructive pulmonary disease, unspecified; R73.03 Prediabetes
CPT/HCPCS: 99284; 96361; 51701; 96374; 36415; 85025; 80053; 81001; A9270; J1885; J7030

== ENCOUNTER 2019-09-25 21:16 | Inpatient (IN) | payer MEDICARE, MEDICAID ==
--- NOTE | 2019-09-25 22:17 | ER Document Report ---
Entered by SANJU TINOCO SCRIBE 09/25/19 2210 Acting as scribe for:MALATHI GALVAN DO ED General - General Chief Complaint: Shortness Of Breath Stated Complaint: RESP DISTRESS Time Seen by Provider: 09/25/19 22:04 Primary Care Provider: MIMI ROTH MD [Primary Care Provider] - Follow up as needed Information source: Patient Notes: This 79 year old female patient presents to the emergency department today with shortness of breath. Patient states this morning she realized there was swelling in her lower extremities and her abdomen was swollen. Patient states she had shortness of breath today so she called for a ambulance. Patient states EMS personnel gave her a nebulizer treatment prior to arrival, which has helped with breathing. Patient denies any fever, cough, or being around anyone sick. TRAVEL OUTSIDE OF THE [place] IN LAST 30 DAYS: No - Related Data Allergies/Adverse Reactions: No Known Allergies Allergy (Verified 09/17/19 21:02) Past Medical History - General Information source: Patient - Social History Smoking Status: Never Smoker Cigarette use (# per day): No Frequency of alcohol use: None Drug Abuse: None Lives with: Alone Family History: Reviewed & Not Pertinent Patient has homicidal ideation: No - Past Medical History Cardiac Medical History: Reports: Hx Hypercholesterolemia, Hx Hypertension Pulmonary Medical History: Reports: Hx COPD Endocrine Medical History: Reports: Hx Diabetes Mellitus Type 2 - "borderline" Renal/ Medical History: Reports: Hx Ovarian Cysts Malignancy Medical History: Reports: Hx Cervical Cancer - uterine cancer GI Medical History: Reports: Hx Gastroesophageal Reflux Disease Musculoskeletal Medical History: Reports Hx Arthritis - back, shoulders, and neck, Reports Hx Musculoskeletal Deformity - Chronic back pain arthritis and back shoulder or neck Psychiatric Medical History: Reports: Hx Bipolar Disorder, Hx Depression Traumatic Medical History: Reports: Hx Fractures Past Surgical History: Reports: Hx Section, Hx Gynecologic Surgery, Hx Hysterectomy, Hx Orthopedic Surgery - L shoulder, Hx Tubal Ligation - Immunizations Immunizations up to date: Yes Hx Diphtheria, Pertussis, Tetanus Vaccination: Yes Hx Pneumococcal Vaccination: 02/01/13 Review of Systems - Review of Systems Constitutional: See HPI. denies: Fever EENT: No symptoms reported Cardiovascular: No symptoms reported Respiratory: See HPI, Short of breath. denies: Cough Gastrointestinal: See HPI Genitourinary: No symptoms reported Female Genitourinary: No symptoms reported Musculoskeletal: See HPI, Leg swelling Skin: No symptoms reported Hematologic/Lymphatic: No symptoms reported Neurological/Psychological: No symptoms reported -: Yes All other systems reviewed and negative Physical Exam - Vital signs Vitals: Resp Pulse Ox 23 H 96 09/25/19 21:23 09/25/19 21:23 - General General appearance: Appears well, Alert - HEENT Head: Normocephalic, Atraumatic Eyes: Normal Pupils: PERRL - Respiratory Respiratory status: No respiratory distress Chest status: Nontender Breath sounds: Other - Slightly diminished bilaterally. Chest palpation: Normal - Cardiovascular Rhythm: Regular Heart sounds: Normal auscultation Murmur: No - Abdominal Inspection: Obese Distension: No distension Bowel sounds: Normal Tenderness: Nontender - Extremities General upper extremity: Normal inspection. No: Edema General lower extremity: Edema - 3+ edema bilaterally. - Neurological Neuro grossly intact: Yes Cognition: Normal Orientation: AAOx4 Tim Coma Scale Eye Opening: Spontaneous Tim Coma Scale Verbal: Oriented Tim Coma Scale Motor: Obeys Commands Tim Coma Scale Total: 15 Speech: Normal - Psychological Associated symptoms: Normal affect, Normal mood - Skin Skin Temperature: Warm Skin Moisture: Dry Skin Color: Normal Course - Re-evaluation Re-evalutation: 09/25/19 23:53 MDM 79 year old with CAP and history consistent with chf. Dr. Winn knows her well and will graciously admit her. - Vital Signs Vital signs: Temp Pulse Resp BP Pulse Ox 98 F 16 147/74 H 97 09/25/19 22:27 09/25/19 22:01 09/25/19 22:01 09/25/19 22:07 - Laboratory Result Diagrams: 09/25/19 22:10 09/25/19 22:10 Laboratory results interpreted by me: 09/25/19 09/25/19 09/25/19 21:50 22:10 22:10 WBC 14.5 H Hgb 10.5 L Hct 31.6 L MCV 78 L MCH 25.7 L RDW 17.1 H Absolute Neuts (auto) 10.0 H Sodium 132.2 L Carbon Dioxide 17 L Glucose 154 H Urine Blood SMALL H Ur Leukocyte Esterase SMALL H - Diagnostic Test Radiology reviewed: Reports reviewed - EKG Interpretation by De EKG shows normal: Sinus rhythm Rate: Normal Rhythm: NSR - NSR Left Smoot LVH [address] elevation or depression my interpretation. Discharge - Discharge Clinical Impression: Bilateral lower extremity edema, Weakness CAP (community acquired pneumonia) Qualifiers: Laterality: left Lung location: upper lobe of lung Qualified Code(s): J18.9 - Pneumonia, unspecified organism Back pain Qualifiers: Back pain location: low back pain Chronicity: chronic Back pain laterality: bilateral Sciatica presence: without sciatica Qualified Code(s): M54.5 - Low back pain T2DM (type 2 diabetes mellitus) Qualifiers: Diabetes mellitus intermediate insulin use: without continuous churn buttermaker use Diabetes mellitus complication status: without complication Qualified Code(s): E11.9 - Type 2 diabetes mellitus without complications Condition: Stable Disposition: ADMITTED INPATIENT Admitting Provider: [facility] Unit Admitted: Telemetry Referrals: MIMI ROTH MD [Primary Care Provider] - Follow up as needed I personally performed the services described in the documentation, reviewed and edited the documentation which was dictated to the scribe in my presence, and it accurately records my words and actions.
[2019-09-25 22:29] LABS: HEMOGLOBIN 10.5 g/dL (12.0-15.5); MEAN CORPUSCULAR VOLUME 78 fl (80-97); TOTAL CELLS COUNTED % (AUTO) 100 %
[2019-09-25 22:34] LABS: APPEARANCE,URINE CLEAR; BILIRUBIN,URINE NEGATIVE (NEGATIVE); COLOR,URINE YELLOW; GLUCOSE, URINE NEGATIVE (NEGATIVE); KETONES,URINE NEGATIVE (NEGATIVE); LEUKOCYTE ESTERASE,URINE SMALL (NEGATIVE); NITRITE,URINE NEGATIVE (NEGATIVE); PROTEIN,URINE NEGATIVE (NEGATIVE); UROBILINOGEN,URINE NEGATIVE mg/dL (<2.0)
[2019-09-25 22:43] LABS: ALBUMIN 3.6 g/dL (3.5-5.0); ALKALINE PHOSPHATASE 51 U/L (38-126); ANION GAP 13 (5-19); ASPARTATE AMINO TRANSFERASE 24 U/L (14-36); BILIRUBIN,TOTAL 0.3 mg/dL (0.2-1.3); BLOOD UREA NITROGEN 14 mg/dL (7-20); CALCIUM 8.9 mg/dL (8.4-10.2); CARBON DIOXIDE 17 mmol/L (22-30); CHLORIDE 102 mmol/L (98-107); GLUCOSE 154 mg/dL (75-110); POTASSIUM 3.6 mmol/L (3.6-5.0); TOTAL PROTEIN 6.4 g/dL (6.3-8.2)
[2019-09-25 22:55] LABS: NT PRO BNP 368 pg/mL (<450)
[2019-09-25 22:56] LABS: ABSOLUTE BASOPHILS # (AUTO) 0.2 10^3/uL (0.0-0.2); ABSOLUTE EOSINOPHILS # (AUTO) 0.3 10^3/uL (0.0-0.6); ABSOLUTE LYMPHOCYTES (AUTO) 2.9 10^3/uL (0.5-4.7); BASOPHILS % (AUTO) 1.2 % (0-2); EOSINOPHILS % (AUTO) 2.2 % (0-6); HEMATOCRIT 31.6 % (36.0-47.0); LYMPHOCYTES % (AUTO) 20.4 % (13-45); MEAN CORPUSCULAR HEMOGLOBIN 25.7 pg (27.0-33.4); MEAN CORPUSCULAR HGB CONC 33.2 g/dL (32.0-36.0); MONOCYTES % (AUTO) 7.2 % (3-13); RED BLOOD COUNT 4.07 10^6/uL (3.72-5.28); RED CELL DISTRIBUTION WIDTH 17.1 % (11.5-14.0); WHITE BLOOD COUNT 14.5 10^3/uL (4.0-10.5)
[2019-09-25 23:00] LABS: TROPONIN I < 0.012 ng/mL
--- NOTE | 2019-09-25 23:01 | RADIOLOGY REPORT (SQ) ---
CHEST 1 VIEW on 09/25/2019 at 9:58 PM CLINICAL INDICATION: Shortness of breath, wheezing COMPARISON: 08/22/2019 FINDINGS: There is elevation of the right hemidiaphragm. There is patchy left lower lung opacity consistent with atelectasis or early pneumonia. Lungs are otherwise clear. Cardiac, hilar and mediastinal contours are within normal limits. Vascular calcification is noted in the aorta. IMPRESSION: Patchy left lower lung opacity consistent with atelectasis or early pneumonia.
[2019-09-25 23:02] LABS: PLATELET COUNT 361 10^3/uL (150-450)
[2019-09-25] MEDS ORDERED: ACETAMINOPHEN 325 MG TABLET PO ONE (23:22)
[2019-09-25] MEDS ORDERED: CEFTRIAXONE 1 GM/D5W RTU 1 GM/50 ML RTUPB IV ONE (23:40)
[2019-09-25 23:46] LABS: INTERNATIONAL RATION (INR) 1.14; PROTHROMBIN TIME 14.7 SEC (11.4-15.4)
[2019-09-25] MEDS ORDERED: GLUCAGON,HUMAN RECOMB 1 MG INJ IM PRN (23:52)
[2019-09-25] MEDS ORDERED: DEXTROSE 50%-WATER 25 GM/50 ML DISP.SYRIN IV PRN ×2 (23:52)
[2019-09-25] MEDS ORDERED: DEXTROSE 40% GEL 15 GM TUBE PO PRN ×2 (23:52)
[2019-09-26] MEDS ORDERED: INSULIN LISPRO 100 UNIT/ML 3 ML VIAL SUBCUT ONE (00:15)
[2019-09-26] MEDS ORDERED: FENTANYL CITRATE INJ/PF 100 MCG/2 ML AMPUL IV ONE (00:49)
--- NOTE | 2019-09-26 00:56 | EKG REPORT ---
SEVERITY:- ABNORMAL ECG - SINUS RHYTHM ATRIAL PREMATURE COMPLEX LEFT AXIS DEVIATION LEFT VENTRICULAR HYPERTROPHY : Confirmed by: Enma Eckert MD 26-Sep-2019 00:55:45
[2019-09-26] MEDS ORDERED: LEVOFLOXACIN 750 MG/D5W RTU 750 MG/150 ML RTUPB IV ONE (01:00)
[2019-09-26] MEDS ORDERED: OXYCODONE HCL IR 5 MG TABLET PO PRN ×2 (01:40→02:05)
[2019-09-26] MEDS: RINGERS SOLUTION,LACTATED 1,000 ML IV PRN ×2 (02:07→15:28)
[2019-09-26 06:08] LABS: ABSOLUTE BASOPHILS # (AUTO) 0.1 10^3/uL (0.0-0.2); ABSOLUTE EOSINOPHILS # (AUTO) 0.2 10^3/uL (0.0-0.6); ABSOLUTE LYMPHOCYTES (AUTO) 1.8 10^3/uL (0.5-4.7); ABSOLUTE MONOCYTES (AUTO) 0.6 10^3/uL (0.1-1.4); ABSOLUTE NEUT (AUTO) 7.7 10^3/uL (1.7-8.2); EOSINOPHILS % (AUTO) 1.6 % (0-6); HEMATOCRIT 30.6 % (36.0-47.0); HEMOGLOBIN 10.4 g/dL (12.0-15.5); LYMPHOCYTES % (AUTO) 17.3 % (13-45); MEAN CORPUSCULAR VOLUME 77 fl (80-97); MONOCYTES % (AUTO) 5.8 % (3-13); PLATELET COUNT 328 10^3/uL (150-450); RED BLOOD COUNT 4.01 10^6/uL (3.72-5.28); SEGMENTED NEUTROPHILS % (AUTO) 74.3 % (42-78); TOTAL CELLS COUNTED % (AUTO) 100 %; WHITE BLOOD COUNT 10.3 10^3/uL (4.0-10.5)
[2019-09-26 06:30] LABS: ALBUMIN 3.2 g/dL (3.5-5.0); ALKALINE PHOSPHATASE 43 U/L (38-126); ANION GAP 11 (5-19); ASPARTATE AMINO TRANSFERASE 24 U/L (14-36); BILIRUBIN,TOTAL 0.3 mg/dL (0.2-1.3); BLOOD UREA NITROGEN 12 mg/dL (7-20); CALCIUM 8.7 mg/dL (8.4-10.2); CARBON DIOXIDE 18 mmol/L (22-30); CHLORIDE 103 mmol/L (98-107); GLUCOSE 234 mg/dL (75-110); POTASSIUM 3.9 mmol/L (3.6-5.0); TOTAL PROTEIN 5.9 g/dL (6.3-8.2)
[2019-09-26] MEDS: INSULIN LISPRO 100 UNIT/ML 3 ML VIAL SUBCUT SCH ×4 (08:11→21:57)
[2019-09-26] MEDS: OXYCODONE HCL IR 5 MG TABLET PO PRN ×2 (08:13→23:33)
[2019-09-26] MEDS: ENOXAPARIN SODIUM INJ 40 MG/0.4 ML DISP.SYRIN SUBCUT SCH (09:37)
--- NOTE | 2019-09-26 14:38 | PDOC H&P ---
History of Present Illness Admission Date/PCP: 09/25/19 23:52 MIMI ROTH MD History of Present Illness: ALANA ROMERO is a 79 year old female ,she came to the emergency room last [facility] [place] for evaluation of shortness of breath, she also stated that she noticed swelling in lower extremities and that the abdomen was swollen, because of these complaints she called the ambulance and she was transferred to the emergency room. 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 In the emergency room she was evaluated a chest x- ray was done, it demonstrated elevation of the left hemidiaphragm, patchy left lung opacity consistent with atelectasis or pneumonia, she was also found to have leukocytosis, the white cell count was 14,000, the oxygen saturation was 97% on ambient air. When I saw her on the floor she was more concerned about the lower extremity swelling, when I indicated that she has pneumonia she denied any respiratory symptoms, she denied cough fever or chills, she told me that the main reason for ED visit was the lower symmetric swelling., The beta type natruretic peptide is slightly elevated, there is no proteinuria that would suggest nephrotic syndrome Past Medical History Cardiac Medical History: Reports: Hyperlipidema, Hypertension Pulmonary Medical History: Reports: Chronic Obstructive Pulmonary Disease (COPD) Endocrine Medical History: Reports: Diabetes Mellitus Type 2 - "borderline" Malignancy Medical History: Reports: Cervical Cancer - uterine cancer GI Medical History: Reports: Gastroesophageal Reflux Disease Musculoskeltal Medical History: Reports: Arthritis - back, shoulders, and neck Psychiatric Medical History: Reports: Bipolar Disorder, Depression Past Surgical History Past Surgical History: Reports: Section, Hysterectomy, Orthopedic Surgery - L shoulder, Tubal Ligation Social History Lives with: Alone Smoking Status: Never Smoker Frequency of Alcohol Use: None Hx Recreational Drug Use: No Drugs: None Hx Prescription Drug Abuse: No Family History Family History: Reviewed & Not Pertinent Parental Family History Reviewed: Yes Children Family History Reviewed: Yes Sibling(s) Family History Reviewed.: Yes Medication/Allergy Home Medications: Pramipexole Di-HCl [Pramipexole Dihydrochloride] 0.5 mg PO TID 01/13/19 Pantoprazole Sodium [Protonix [address] Tablet] 40 mg PO DAILY #90 tablet.dr 01/19/19 Buprenorphine [Butrans] 1 patch TOP Q7D 05/18/19 Mirtazapine 45 mg PO QHS 05/18/19 Tramadol HCl [Ultram 50 mg Tablet] 50 mg PO Q8HP PRN 05/18/19 Lisinopril [Prinivil 10 mg Tablet] 10 mg PO DAILY #90 tablet 05/23/19 Sitagliptin Phosphate [Januvia] 100 mg PO DAILY #90 tablet 05/23/19 Sucralfate [Carafate 1 gm Tablet] 1 gm PO TID 08/03/19 Nitrofurantoin Monohyd/M-Cryst [Macrobid 100 mg Capsule] 100 mg PO BID #14 capsule 08/08/19 Ondansetron [Zofran Odt 4 mg Tablet] 1 - 2 tab PO Q4H PRN #15 tab.rapdis 08/20/19 Ondansetron [Zofran Odt 4 mg Tablet] 1 - 2 tab PO Q8HP PRN #15 tab.rapdis 08/20/19 Potassium Chloride 20 meq PO BID 5 Days #10 tab.er.prt 08/20/19 Potassium Chloride 20 meq PO BID 5 Days #10 tab.er.prt 08/20/19 Tramadol HCl [Ultram 50 mg Tablet] 50 mg PO Q6HP PRN 5 Days #20 tab 08/20/19 Tramadol HCl [Ultram 50 mg Tablet] 50 mg PO Q8HP PRN 5 Days #15 tab 08/20/19 Chlorzoxazone [Parafon Forte Dsc 500 Mg Tablet] 500 mg PO BID #10 tablet 09/01/19 Ondansetron [Zofran Odt 4 mg Tablet] 1 - 2 tab PO Q4H PRN #15 tab.rapdis 09/16/19 Polyethylene Glycol 3350 [Miralax] 1 cap PO DAILY #527 powder 09/16/19 Allergies/Adverse Reactions: No Known Allergies Allergy (Verified 09/17/19 21:02) Review of Systems Constitutional: ABSENT: chills, fever(s), headache(s), weight gain, weight loss Eyes: ABSENT: visual disturbances Ears: ABSENT: hearing changes Cardiovascular: PRESENT: edema Respiratory: PRESENT: dyspnea Gastrointestinal: ABSENT: abdominal pain, constipation, diarrhea, hematemesis, hematochezia, nausea, vomiting Genitourinary: ABSENT: dysuria, hematuria Musculoskeletal: ABSENT: joint swelling Integumentary: ABSENT: rash, wounds Neurological: ABSENT: abnormal gait, abnormal speech, confusion, dizziness, focal weakness, syncope Psychiatric: ABSENT: anxiety, depression, homidical ideation, suicidal ideation Endocrine: ABSENT: cold intolerance, heat intolerance, menstrual abnormalities, polydipsia, polyuria Hematologic/Lymphatic: ABSENT: easy bleeding, easy bruising, lymphadenopathy Physical Exam Vital Signs: Temp Pulse Resp BP Pulse Ox 98.3 F 94 20 175/86 H 100 09/26/19 11:49 09/26/19 11:49 09/26/19 11:49 09/26/19 11:49 09/26/19 11:49 Intake & Output 09/25/19 09/26/19 09/27/19 06:59 06:59 06:59 Intake Total 444 320 Output Total 550 1400 Balance -106 -1080 Weight 77.2 kg General appearance: PRESENT: no acute distress, well-developed, well-nourished Head exam: PRESENT: atraumatic, normocephalic Eye exam: PRESENT: conjunctiva pink, EOMI, PERRLA Ear exam: PRESENT: normal external ear exam Mouth exam: PRESENT: moist, tongue midline Neck exam: PRESENT: full ROM Respiratory exam: PRESENT: clear to auscultation isak Cardiovascular exam: PRESENT: RRR, +S1, +S2 Pulses: PRESENT: normal dorsalis pedis pul, +2 pedal pulses bilateral Vascular exam: PRESENT: normal capillary refill GI/Abdominal exam: PRESENT: normal bowel sounds, soft Rectal exam: PRESENT: deferred Extremities exam: PRESENT: pedal edema Neurological exam: PRESENT: alert, awake, oriented to person, oriented to place, oriented to time, oriented to situation, CN II-XII grossly intact Psychiatric exam: PRESENT: appropriate affect, normal mood Skin exam: PRESENT: dry, intact, warm Results Laboratory Results: 09/26/19 05:38 09/26/19 05:38 09/25/19 09/25/19 09/25/19 21:50 22:10 22:10 WBC 14.5 H RBC 4.07 Hgb 10.5 L Hct 31.6 L MCV 78 L MCH 25.7 L MCHC 33.2 RDW 17.1 H Plt Count 361 Seg Neutrophils % 69.0 Sodium 132.2 L Potassium 3.6 Chloride 102 Carbon Dioxide 17 L Anion Gap 13 BUN 14 Creatinine 0.65 Est GFR ( Amer) > 60 Glucose 154 H Lactic Acid Calcium 8.9 Total Bilirubin 0.3 AST 24 Alkaline Phosphatase 51 Total Protein 6.4 Albumin 3.6 Urine Color YELLOW Urine Appearance CLEAR Urine pH 7.0 Ur Specific [place] 1.010 Urine Protein NEGATIVE Urine Glucose (UA) NEGATIVE Urine Ketones NEGATIVE Urine Blood SMALL H Urine Nitrite NEGATIVE Ur Leukocyte Esterase SMALL H Urine WBC (Auto) 8 Urine RBC (Auto) 1 09/25/19 09/26/19 09/26/19 23:32 05:38 05:38 WBC 10.3 RBC 4.01 Hgb 10.4 L Hct 30.6 L MCV 77 L MCH 26.0 L MCHC 34.0 RDW 17.0 H Plt Count 328 Seg Neutrophils % 74.3 Sodium 131.9 L Potassium 3.9 Chloride 103 Carbon Dioxide 18 L Anion Gap 11 BUN 12 Creatinine 0.50 L Est GFR ( Amer) > 60 Glucose 234 H Lactic Acid 2.1 Calcium 8.7 Total Bilirubin 0.3 AST 24 Alkaline Phosphatase 43 Total Protein 5.9 L Albumin 3.2 L Urine Color Urine Appearance Urine pH Ur Specific [place] Urine Protein Urine Glucose (UA) Urine Ketones Urine Blood Urine Nitrite Ur Leukocyte Esterase Urine WBC (Auto) Urine RBC (Auto) 09/25/19 09/25/19 09/25/19 22:10 22:10 22:10 Creatine Kinase 61 CK-MB (CK-2) 1.46 Troponin I < 0.012 Cancelled NT-Pro-B Natriuret Pep 368 Cancelled 09/26/19 05:58 Creatine Kinase CK-MB (CK-2) Troponin I NT-Pro-B Natriuret Pep 513 H Impressions: Chest X-Ray 09/25/19 21:23 IMPRESSION: Patchy left lower lung opacity consistent with atelectasis or early pneumonia. Assessment & Plan - Diagnosis (1) CAP (community acquired pneumonia) Qualifiers: Laterality: left Lung location: lower lobe of lung Qualified Code(s): J18.9 - Pneumonia, unspecified organism Is this a current diagnosis for this admission?: Yes Plan: She has underlying COPD, chest x-ray showed left lower lobe pneumonia, there is associated leukocytosis, she also complained of shortness of breath, she prob ably have community-acquired pneumonia, she will be treated with intravenous antibiotic to cover potential pathogens (2) Localized swelling of both lower extremities Is this a current diagnosis for this admission?: Yes Plan: The differential diagnosis include CHF, DVT, medication, venous insufficiency, pulmonary hypertension. Venous Doppler is ordered, order 2D echo to measure pulmonary pressures, treat with low-dose Lasix infusion for diuresis, applied compression stockings (3) T2DM (type 2 diabetes mellitus) Qualifiers: Diabetes mellitus termite exterminator insulin use: without fci use Diabetes mellitus complication status: without complication Qualified Code(s): E11.9 - Type 2 diabetes mellitus without complications Is this a current diagnosis for this admission?: Yes Plan: She is not adherent with medication for the control of diabetes, (4) T2DM (type 2 diabetes mellitus) Qualifiers: Diabetes mellitus termite exterminator insulin use: without termite exterminator use Diabetes mellitus complication status: with neurologic complications Diabetes mellitus complication detail: with polyneuropathy Qualified Code(s): E11.42 - Type 2 diabetes mellitus with diabetic polyneuropathy Is this a current diagnosis for this admission?: Yes (5) Lumbar disc disease with radiculopathy Is this a current diagnosis for this admission?: Yes Plan: She complains of back pain with radicular symptoms requesting opioid therapy, she follows with the pain management chronically on oxycodone
[2019-09-26] MEDS: HYDROMORPHONE HCL INJ/PF 2 MG/ML AMPULE IV PRN ×2 (15:28→21:37)
[2019-09-26] MEDS: IPRATROPIUM/ALBUTEROL 0.5-2.5 MG/3 ML AMPUL NEB PRN (16:29)
[2019-09-26] MEDS: NORMAL SALINE 250 ML with FUROSEMIDE 250 MG IV PRN ×2 (17:29)
[2019-09-26] MEDS: LEVOFLOXACIN 750 MG/D5W RTU 750 MG/150 ML RTUPB IV SCH (21:29)
[2019-09-27] MEDS: HYDROMORPHONE HCL INJ/PF 2 MG/ML AMPULE IV PRN ×4 (03:44→22:22)
[2019-09-27] MEDS: RINGERS SOLUTION,LACTATED 1,000 ML IV PRN ×2 (05:29→22:45)
[2019-09-27 06:27] LABS: ABSOLUTE BASOPHILS # (AUTO) 0.1 10^3/uL (0.0-0.2); ABSOLUTE EOSINOPHILS # (AUTO) 0.2 10^3/uL (0.0-0.6); ABSOLUTE LYMPHOCYTES (AUTO) 1.9 10^3/uL (0.5-4.7); ABSOLUTE MONOCYTES (AUTO) 0.9 10^3/uL (0.1-1.4); ABSOLUTE NEUT (AUTO) 9.4 10^3/uL (1.7-8.2); BASOPHILS % (AUTO) 1.1 % (0-2); EOSINOPHILS % (AUTO) 1.4 % (0-6); HEMATOCRIT 34.7 % (36.0-47.0); HEMOGLOBIN 11.8 g/dL (12.0-15.5); LYMPHOCYTES % (AUTO) 15.2 % (13-45); MEAN CORPUSCULAR HEMOGLOBIN 25.8 pg (27.0-33.4); MEAN CORPUSCULAR HGB CONC 34.1 g/dL (32.0-36.0); MEAN CORPUSCULAR VOLUME 76 fl (80-97); MONOCYTES % (AUTO) 7.4 % (3-13); PLATELET COUNT 408 10^3/uL (150-450); RED BLOOD COUNT 4.58 10^6/uL (3.72-5.28); RED CELL DISTRIBUTION WIDTH 17.3 % (11.5-14.0); SEGMENTED NEUTROPHILS % (AUTO) 74.9 % (42-78); TOTAL CELLS COUNTED % (AUTO) 100 %; WHITE BLOOD COUNT 12.6 10^3/uL (4.0-10.5)
[2019-09-27 06:51] LABS: ALKALINE PHOSPHATASE 62 U/L (38-126); ANION GAP 11 (5-19); ASPARTATE AMINO TRANSFERASE 28 U/L (14-36); BILIRUBIN,TOTAL 0.6 mg/dL (0.2-1.3); BLOOD UREA NITROGEN 10 mg/dL (7-20); CALCIUM 9.6 mg/dL (8.4-10.2); CARBON DIOXIDE 27 mmol/L (22-30); CHLORIDE 95 mmol/L (98-107); GLUCOSE 126 mg/dL (75-110); POTASSIUM 3.5 mmol/L (3.6-5.0)
[2019-09-27] MEDS: INSULIN LISPRO 100 UNIT/ML 3 ML VIAL SUBCUT SCH ×3 (08:28→16:44)
[2019-09-27] MEDS: ENOXAPARIN SODIUM INJ 40 MG/0.4 ML DISP.SYRIN SUBCUT SCH (10:01)
[2019-09-27] MEDS: OXYCODONE HCL IR 5 MG TABLET PO PRN ×2 (13:49→19:55)
--- NOTE | 2019-09-27 16:47 | RADIOLOGY REPORT (SQ) ---
EXAM DESCRIPTION: VENOUS BILATERAL LOWER IMAGES COMPLETED DATE/TIME: 09/27/2019 3:46 pm REASON FOR STUDY: bilateral lower extremity swelling COMPARISON: None. TECHNIQUE: Dynamic and static de la cruz scale and color images acquired of both lower extremity venous sy stems. Selected spectral images acquired with additional compression and augmentation maneuvers. Imag es stored on PACS. LIMITATIONS: None. FINDINGS: RIGHT LEG COMMON FEMORAL AND FEMORAL: Normal phasicity, compression and augmentation. No visualized echogenic m aterial on de la cruz scale. No defects on color images. POPLITEAL: Normal compression and augmentation. No visualized echogenic material on de la cruz scale. No de fects on color images. CALF VESSELS: Normal compression and augmentation. No visualized echogenic material on de la cruz scale. No defects on color image. GSV AND SSV: Normal compression. No visualized echogenic material on de la cruz scale. No defects on color images. ANY DEEP VENOUS INSUFFICIENCY: Not evaluated. ANY EVIDENCE OF POPLITEAL CYST: No. OTHER: No other finding. LEFT LEG COMMON FEMORAL AND FEMORAL: Normal phasicity, compression and augmentation. No visualized echogenic m aterial on de la cruz scale. No defects on color images. POPLITEAL: Normal compression and augmentation. No visualized echogenic material on de la cruz scale. No de fects on color images. CALF VESSELS: Normal compression and augmentation. No visualized echogenic material on de la cruz scale. No defects on color images. GSV AND SSV: Normal compression. No visualized echogenic material on de la cruz scale. No defects on color images. ANY DEEP VENOUS INSUFFICIENCY: Not evaluated. ANY EVIDENCE POPLITEAL CYST: No. OTHER: No other finding. IMPRESSION: NO EVIDENCE DVT OR SVT IN EITHER LEG. TECHNICAL DOCUMENTATION: JOB ID: [id number] [employer]- All Rights Reserved Reading location - IP/workstation name: [email or web address]
[2019-09-27] MEDS: NORMAL SALINE 250 ML with FUROSEMIDE 250 MG IV PRN ×4 (17:28→22:00)
[2019-09-27] MEDS: PHARMACY COMMUNICATION ORDER MC SCH (17:34)
[2019-09-27] MEDS: IPRATROPIUM/ALBUTEROL 0.5-2.5 MG/3 ML AMPUL NEB PRN (21:28)
--- NOTE | 2019-09-27 22:12 | PDOC PROGRESS REPORT ---
Subjective Progress Note for:: 09/27/19 Subjective:: Patient seen by the bedside, venous Doppler negative for DVT, leg swelling is reduced with Lasix infusion Reason For Visit: PNEUMONIA,COPD Physical Exam Vital Signs: Temp Pulse Resp BP Pulse Ox 98.9 F 106 H 18 128/67 H 94 09/27/19 20:48 09/27/19 21:28 09/27/19 21:28 09/27/19 20:48 09/27/19 21:28 Intake & Output 09/26/19 09/27/19 09/28/19 06:59 06:59 06:59 Intake Total 444 3336 540 Output Total 550 7938 1650 Balance -798 -4614 -1110 Weight 77.2 kg 75.2 kg General appearance: PRESENT: no acute distress Eye exam: PRESENT: PERRLA Respiratory exam: PRESENT: clear to auscultation isak Cardiovascular exam: PRESENT: +S1, +S2 GI/Abdominal exam: PRESENT: soft Neurological exam: PRESENT: alert Results Laboratory Results: 09/27/19 06:16 09/27/19 06:16 09/27/19 09/27/19 06:16 06:16 WBC 12.6 H RBC 4.58 Hgb 11.8 L Hct 34.7 L MCV 76 L MCH 25.8 L MCHC 34.1 RDW 17.3 H Plt Count 408 Seg Neutrophils % 74.9 Sodium 133.0 L Potassium 3.5 L Chloride 95 L Carbon Dioxide 27 Anion Gap 11 BUN 10 Creatinine 0.64 Est GFR ( Amer) > 60 Glucose 126 H Calcium 9.6 Total Bilirubin 0.6 AST 28 Alkaline Phosphatase 62 Total Protein 7.0 Albumin 4.0 09/25/19 09/25/19 09/25/19 22:10 22:10 22:10 Creatine Kinase 61 CK-MB (CK-2) 1.46 Troponin I < 0.012 Cancelled NT-Pro-B Natriuret Pep 368 Cancelled 09/26/19 05:58 Creatine Kinase CK-MB (CK-2) Troponin I NT-Pro-B Natriuret Pep 513 H Impressions: Chest X-Ray 09/25/19 21:23 IMPRESSION: Patchy left lower lung opacity consistent with atelectasis or early pneumonia. Venous Doppler Study 09/27/19 00:00 IMPRESSION: NO EVIDENCE DVT OR SVT IN EITHER LEG. Assessment & Plan - Diagnosis (1) CAP (community acquired pneumonia) Qualifiers: Laterality: left Lung location: lower lobe of lung Qualified Code(s): J18.9 - Pneumonia, unspecified organism Is this a current diagnosis for this admission?: Yes Plan: Continue IV antibiotic (2) Localized swelling of both lower extremities Is this a current diagnosis for this admission?: Yes Plan: Reduce furosemide infusion to 1 mg/h (3) T2DM (type 2 diabetes mellitus) Qualifiers: Diabetes mellitus intermodal owner operator truck driver insulin use: without intermodal owner operator truck driver use Diabetes mellitus complication status: without complication Qualified Code(s): E11.9 - Type 2 diabetes mellitus without complications Is this a current diagnosis for this admission?: Yes (4) T2DM (type 2 diabetes mellitus) Qualifiers: Diabetes mellitus intermodal owner operator truck driver insulin use: without intermodal owner operator truck driver use Diabetes mellitus complication status: with neurologic complications Diabetes mellitus complication detail: with polyneuropathy Qualified Code(s): E11.42 - Type 2 diabetes mellitus with diabetic polyneuropathy Is this a current diagnosis for this admission?: Yes (5) Lumbar disc disease with radiculopathy Is this a current diagnosis for this admission?: Yes - Time Time Spent with patient: 15-24 minutes Level of Care: IMCU
[2019-09-27] MEDS: LEVOFLOXACIN 750 MG/D5W RTU 750 MG/150 ML RTUPB IV SCH (22:24)
[2019-09-28] MEDS: INSULIN LISPRO 100 UNIT/ML 3 ML VIAL SUBCUT SCH ×4 (00:02→16:43)
[2019-09-28] MEDS: OXYCODONE HCL IR 5 MG TABLET PO PRN ×3 (02:00→16:43)
[2019-09-28 03:15] LABS: ABSOLUTE BASOPHILS # (AUTO) 0.1 10^3/uL (0.0-0.2); ABSOLUTE EOSINOPHILS # (AUTO) 0.1 10^3/uL (0.0-0.6); ABSOLUTE LYMPHOCYTES (AUTO) 2.3 10^3/uL (0.5-4.7); ABSOLUTE NEUT (AUTO) 11.4 10^3/uL (1.7-8.2); BASOPHILS % (AUTO) 0.8 % (0-2); EOSINOPHILS % (AUTO) 0.9 % (0-6); HEMATOCRIT 36.7 % (36.0-47.0); HEMOGLOBIN 12.5 g/dL (12.0-15.5); LYMPHOCYTES % (AUTO) 15.5 % (13-45); MEAN CORPUSCULAR HEMOGLOBIN 26.1 pg (27.0-33.4); MEAN CORPUSCULAR HGB CONC 34.1 g/dL (32.0-36.0); MEAN CORPUSCULAR VOLUME 76 fl (80-97); PLATELET COUNT 463 10^3/uL (150-450); RED CELL DISTRIBUTION WIDTH 17.4 % (11.5-14.0); SEGMENTED NEUTROPHILS % (AUTO) 75.8 % (42-78); TOTAL CELLS COUNTED % (AUTO) 100 %
[2019-09-28 03:27] LABS: ALBUMIN 4.2 g/dL (3.5-5.0); ALKALINE PHOSPHATASE 60 U/L (38-126); ANION GAP 13 (5-19); ASPARTATE AMINO TRANSFERASE 32 U/L (14-36); BILIRUBIN,DIRECT 0.1 mg/dL (0.0-0.4); BILIRUBIN,TOTAL 0.7 mg/dL (0.2-1.3); BLOOD UREA NITROGEN 13 mg/dL (7-20); CALCIUM 9.3 mg/dL (8.4-10.2); CARBON DIOXIDE 27 mmol/L (22-30); CHLORIDE 92 mmol/L (98-107); GLUCOSE 132 mg/dL (75-110); POTASSIUM 3.7 mmol/L (3.6-5.0); TOTAL PROTEIN 7.8 g/dL (6.3-8.2)
[2019-09-28 03:39] LABS: CREATINE KINASE MB 1.12 ng/mL (<4.55)
[2019-09-28 03:40] LABS: TROPONIN I < 0.012 ng/mL
[2019-09-28] MEDS: HYDROMORPHONE HCL INJ/PF 2 MG/ML AMPULE IV PRN ×3 (04:32→18:30)
--- NOTE | 2019-09-28 06:29 | RADIOLOGY REPORT (SQ) ---
EXAM DESCRIPTION: XR CHEST 1 VIEW COMPLETED DATE/TME: 09/28/2019 00:00 CLINICAL HISTORY: 79 years, Female, Chest pain/tightness COMPARISON: 09/25/2019 chest NUMBER OF VIEWS: 1 TECHNIQUE: Portable chest LIMITATIONS: None. FINDINGS: The heart size is stable. Atheromatous change of the thoracic aorta. Persistent airspace opacity left lung base. No pneumothorax. Osteopenia IMPRESSION: Little interval change copyright 2010 [employer]- All Rights Reserved
--- NOTE | 2019-09-28 07:24 | EKG REPORT ---
SEVERITY:- ABNORMAL ECG - SINUS TACHYCARDIA AND PAC LEFT ANTERIOR FASCICULAR BLOCK LEFT VENTRICULAR HYPERTROPHY : Confirmed by: Vickey Burgess MD 28-Sep-2019 07:24:14
[2019-09-28] MEDS: ENOXAPARIN SODIUM INJ 40 MG/0.4 ML DISP.SYRIN SUBCUT SCH (09:47)
[2019-09-28] MEDS: IPRATROPIUM/ALBUTEROL 0.5-2.5 MG/3 ML AMPUL NEB PRN ×2 (09:57→16:55)
[2019-09-28 10:31] LABS: CREATINE KINASE MB 1.26 ng/mL (<4.55)
[2019-09-28 10:33] LABS: TROPONIN I < 0.012 ng/mL
[2019-09-28 15:44] LABS: CREATINE KINASE MB 1.25 ng/mL (<4.55)
[2019-09-28 15:55] LABS: TROPONIN I < 0.012 ng/mL
[2019-09-28] MEDS: PHARMACY COMMUNICATION ORDER MC SCH (18:14)
[2019-09-28] MEDS: NORMAL SALINE 250 ML with FUROSEMIDE 250 MG IV PRN ×2 (18:14)
[2019-09-28] MEDS ORDERED: POLYETHYLENE GLYCOL 3350 POWDER 17 GM/1 PACKET PO PRN (19:01)
--- NOTE | 2019-09-28 19:45 | PDOC PROGRESS REPORT ---
Subjective Progress Note for:: 09/28/19 Subjective:: Patient is better she will like to go home tomorrow Reason For Visit: PNEUMONIA,COPD Physical Exam Vital Signs: Temp Pulse Resp BP Pulse Ox 98.4 F 98 14 149/76 H 92 09/28/19 16:25 09/28/19 16:55 09/28/19 16:55 09/28/19 16:25 09/28/19 16:55 Intake & Output 09/27/19 09/28/19 09/29/19 06:59 06:59 06:59 Intake Total 3336 2296 800 Output Total 7950 3245 1250 Balance -4614 -579 -450 Weight 75.2 kg 73.6 kg General appearance: PRESENT: no acute distress Eye exam: PRESENT: PERRLA Respiratory exam: PRESENT: clear to auscultation isak Cardiovascular exam: PRESENT: +S1, +S2 GI/Abdominal exam: PRESENT: soft Neurological exam: PRESENT: alert Results Laboratory Results: 09/28/19 03:08 09/28/19 03:08 09/28/19 09/28/19 03:08 03:08 WBC 15.0 H RBC 4.80 Hgb 12.5 Hct 36.7 MCV 76 L MCH 26.1 L MCHC 34.1 RDW 17.4 H Plt Count 463 H Seg Neutrophils % 75.8 Sodium 131.7 L Potassium 3.7 Chloride 92 L Carbon Dioxide 27 Anion Gap 13 BUN 13 Creatinine 0.73 Est GFR ( Amer) > 60 Glucose 132 H Calcium 9.3 Total Bilirubin 0.7 AST 32 Alkaline Phosphatase 60 Total Protein 7.8 Albumin 4.2 09/25/19 09/25/19 09/25/19 22:10 22:10 22:10 Creatine Kinase 61 CK-MB (CK-2) 1.46 Troponin I < 0.012 Cancelled NT-Pro-B Natriuret Pep 368 Cancelled 09/26/19 09/28/19 09/28/19 05:58 03:08 03:08 Creatine Kinase 61 CK-MB (CK-2) 1.12 Troponin I < 0.012 NT-Pro-B Natriuret Pep 513 H 09/28/19 09/28/19 09/28/19 09:30 09:30 14:53 Creatine Kinase 52 50 CK-MB (CK-2) 1.26 Troponin I < 0.012 NT-Pro-B Natriuret Pep 09/28/19 14:53 Creatine Kinase CK-MB (CK-2) 1.25 Troponin I < 0.012 NT-Pro-B Natriuret Pep Impressions: Venous Doppler Study 09/27/19 00:00 IMPRESSION: NO EVIDENCE DVT OR SVT IN EITHER LEG. Chest X-Ray 09/28/19 00:00 IMPRESSION: Little interval change copyright 2011 [employer]- All Rights Reserved Assessment & Plan - Diagnosis (1) CAP (community acquired pneumonia) Qualifiers: Laterality: left Lung location: lower lobe of lung Qualified Code(s): J18.9 - Pneumonia, unspecified organism Is this a current diagnosis for this admission?: Yes (2) Localized swelling of both lower extremities Is this a current diagnosis for this admission?: Yes (3) T2DM (type 2 diabetes mellitus) Qualifiers: Diabetes mellitus intermediate insulin use: without remote computer terminal operator use Diabetes mellitus complication status: without complication Qualified Code(s): E11.9 - Type 2 diabetes mellitus without complications Is this a current diagnosis for this admission?: Yes (4) T2DM (type 2 diabetes mellitus) Qualifiers: Diabetes mellitus intermediate insulin use: without remote computer terminal operator use Diabetes mellitus complication status: with neurologic complications Diabetes mellitus complication detail: with polyneuropathy Qualified Code(s): E11.42 - Type 2 diabetes mellitus with diabetic polyneuropathy Is this a current diagnosis for this admission?: Yes (5) Lumbar disc disease with radiculopathy Is this a current diagnosis for this admission?: Yes - Time Time Spent with patient: 25-34 minutes Level of Care: IMCU
[2019-09-28] MEDS: LEVOFLOXACIN 750 MG/D5W RTU 750 MG/150 ML RTUPB IV SCH (21:01)
[2019-09-28] MEDS: DOCUSATE SODIUM 100 MG CAPSULE PO SCH (21:02)
--- NOTE | 2019-09-28 23:27 | XCELERA REPORT ---
[address] [address] Transthoracic Echocardiogram Report Name: ALANA ROMERO Age: 79 yrs Gender: Female : 1940 Patient Status: Inpatient Patient Location: [address] [place], [place] [id number] Study Date: 09/28/2019 10:40 AM Height: 62 in Weight: 170 lb BSA: 1.8 m2 Procedure: A two-dimensional transthoracic echocardiogram with color flow and Doppler was performed. The study was technically difficult with many images being suboptimal in quality. Reason For Study: htn History: HTN. Ordering Physician: ROSLYN TOLEDO Performed By: Laura Liu Interpretation Summary The left ventricle is normal in size. There is normal left ventricular wall thickness. LV EF is 70% Left ventricular systolic function is normal. Doppler measurements suggest impaired left ventricular relaxation, which is associated with grade I/IV or mild diastolic dysfunction The left ventricular wall motion is normal. There is no thrombus. No ASD ,VSD , or PFO seen. The right ventricle is grossly normal size. The right ventricle is not well visualized secondary to technical limitations The right atrium is normal. The left atrial size is normal. There is no evidence of mitral valve prolapse. There is no vegetation seen on the mitral valve. There is no mitral valve stenosis. There is a trace amount of mitral regurgitation There is no aortic valvular vegetation. There is no aortic valve stenosis No aortic regurgitation is present. There is no tricuspid stenosis. There is a trace amount of tricuspid regurgitation There is mild pulmonary hypertension by echo RVSP is 38 to 43 mm of HG , with RA mean of 5 to 10. There is no pulmonic valvular stenosis. There is a trace amount of pulmonic regurgitation The aortic root is not well visualized but is probably normal size. The inferior vena cava appeared normal and decreased > 50% with respiration (RAP 5-10 mmHg) There is no pericardial effusion. MMode/2D Measurements & Calculations RVDd: 2.7 cm LVIDd: 3.8 cm FS: 39.1 % Ao root diam: 2.8 cm IVSd: 0.96 cm LVIDs: 2.3 cm EDV(Teich): 63.1 ml Ao root area: 6.1 cm2 LVPWd: 0.96 cm ESV(Teich): 18.8 ml EF(Teich): 70.2 % Doppler Measurements & Calculations MV E max luis e: MV dec slope: Ao V2 max: LV V1 max P.1 cm/sec 450.3 cm/sec2 177.2 cm/sec 5.8 mmHg MV A max luis e: MV dec time: 0.16 secAo max PG: LV V1 max: 126.6 cm/sec 12.6 mmHg 120.6 cm/sec MV E/A: 0.57 PA V2 max: TR max luis e: 95.5 cm/sec 287.6 cm/sec PA max P.7 mmHg TR max P.4 mmHg Left Ventricle The left ventricle is normal in size. There is normal left ventricular wall thickness. LV EF is 70%. Left ventricular systolic function is normal. Doppler measurements suggest impaired left ventricular relaxation, which is associated with grade I/IV or mild diastolic dysfunction. The left ventricular wall motion is normal. There is no thrombus. No ASD ,VSD , or PFO seen. Right Ventricle The right ventricle is grossly normal size. The right ventricle is not well visualized secondary to technical limitations. Atria The right atrium is normal. The left atrial size is normal. Mitral Valve There is no evidence of mitral valve prolapse. There is no vegetation seen on the mitral valve. There is no mitral valve stenosis. There is a trace amount of mitral regurgitation. Aortic Valve There is no aortic valvular vegetation. There is no aortic valve stenosis. There is no LVOT obstruction. No aortic regurgitation is present. Tricuspid Valve There is no tricuspid stenosis. There is a trace amount of tricuspid regurgitation. There is mild pulmonary hypertension by echo. RVSP is 38 to 43 mm of HG , with RA mean of 5 to 10. Pulmonic Valve There is no pulmonic valvular stenosis. There is a trace amount of pulmonic regurgitation. Great Vessels The aortic root is not well visualized but is probably normal size. The inferior vena cava appeared normal and decreased > 50% with respiration (RAP 5-10 mmHg). Effusions There is no pericardial effusion. : ROSLYN TOLEDO Lakshmi
[2019-09-29] MEDS: HYDROMORPHONE HCL INJ/PF 2 MG/ML AMPULE IV PRN ×2 (00:40→06:46)
[2019-09-29] MEDS: INSULIN LISPRO 100 UNIT/ML 3 ML VIAL SUBCUT SCH ×2 (03:39→10:18)
[2019-09-29] MEDS: OXYCODONE HCL IR 5 MG TABLET PO PRN (03:41)
[2019-09-29] MEDS: DOCUSATE SODIUM 100 MG CAPSULE PO SCH (10:18)
[2019-09-29] MEDS: ENOXAPARIN SODIUM INJ 40 MG/0.4 ML DISP.SYRIN SUBCUT SCH (10:18)
[2019-09-29 10:58] VITALS: BP 124/55
--- NOTE | 2019-09-29 12:30 | PDOC DISCHARGE SUMMARY ---
Impression - Admit/DC Date/PCP Admission Date/Primary Care Provider: 09/25/19 23:52 MIMI ROTH MD Discharge Date: 09/29/19 - Discharge Diagnosis (1) CAP (community acquired pneumonia) Is this a current diagnosis for this admission?: Yes (2) Localized swelling of both lower extremities Is this a current diagnosis for this admission?: Yes (3) T2DM (type 2 diabetes mellitus) Is this a current diagnosis for this admission?: Yes (4) T2DM (type 2 diabetes mellitus) Is this a current diagnosis for this admission?: Yes (5) Lumbar disc disease with radiculopathy Is this a current diagnosis for this admission?: Yes - Additional Information Discharge Diet: Cardiac, Diabetic Discharge Activity: Activity As Tolerated Referrals: ROSLYN TOLEDO MD [ACTIVE STAFF] - 10/05/19 10:15 am (Wear a mask to this appointment.) Home Medications: RX: Pramipexole Di-HCl [Pramipexole Dihydrochloride] 0.5 mg PO TID 01/13/19 RX: Mirtazapine 45 mg PO QHS 05/18/19 RX: Tramadol HCl [Ultram 50 mg Tablet] 50 mg PO Q8HP PRN 05/18/19 RX: Lisinopril [Prinivil 10 mg Tablet] 10 mg PO DAILY #90 tablet 05/23/19 RX: Sitagliptin Phosphate [Januvia] 100 mg PO DAILY #90 tablet 05/23/19 RX: Chlorzoxazone [Parafon Forte Dsc 500 mg Tablet] 500 mg PO BID #10 tablet 09/01/19 RX: Ondansetron [Zofran Odt 4 mg Tablet] 2 tab PO BIDP PRN 09/27/19 History of Present Illiness History of Present Illness: ALANA ROMERO is a 79 year old female ,she came to the emergency room last night for evaluation of shortness of breath, she also stated that she noticed swelling in lower extremities and that the abdomen was swollen, because of these complaints she called the ambulance and she was transferred to the emergency room. 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 In the emergency room she was evaluated a chest x- ray was done, it demonstrated elevation of the left hemidiaphragm, patchy left lung opacity consistent with atelectasis or pneumonia, she was also found to have leukocytosis, the white cell count was 14,000, the oxygen saturation was 97% on ambient air. When I saw her on the floor she was more concerned about the lower extremity swelling, when I indicated that she has pneumonia she denied any respiratory symptoms, she denied cough fever or chills, she told me that the main reason for ED visit was the lower symmetric swelling., The beta type natruretic peptide is slightly elevated, there is no proteinuria that would suggest nephrotic syndrome Hospital Course Hospital Course: Patient was admitted for the management of pneumonia, lower extremity edema, she was treated with IV antibiotic, Lasix infusion, a venous Doppler of the lower extremity was done, it was negative for DVT, a 2D echo was done, it demonstrated preserved ejection fraction of left ventricle with grade 1 diastolic dysfunction. Urine culture grew insignificant E. coli ESBL probably due to colonization not a true infection, she has no urinary symptoms. Pain control was achieved with Dilaudid, she has chronic back pain. Patient improved with this regimen she is discharged home today Physical Exam Vital Signs: Temp Pulse Resp BP Pulse Ox 99.1 F 110 H 18 124/55 L 95 09/29/19 10:53 09/29/19 10:53 09/29/19 10:53 09/29/19 10:53 09/29/19 10:53 Intake & Output 09/28/19 09/29/19 09/30/19 06:59 06:59 06:59 Intake Total 2296 1553 Output Total 2875 2450 Balance -579 -897 Weight 73.6 kg 73.4 kg General appearance: PRESENT: no acute distress Eye exam: PRESENT: PERRLA Respiratory exam: PRESENT: clear to auscultation isak Cardiovascular exam: PRESENT: +S1, +S2 GI/Abdominal exam: PRESENT: soft Neurological exam: PRESENT: alert, CN II-XII grossly intact Results Laboratory Results: WBC 15.0 10^3/uL (4.0-10.5) H 09/28/19 03:08 RBC 4.80 10^6/uL (3.72-5.28) 09/28/19 03:08 Hgb 12.5 g/dL (12.0-15.5) 09/28/19 03:08 Hct 36.7 % (36.0-47.0) 09/28/19 03:08 MCV 76 fl (80-97) L 09/28/19 03:08 MCH 26.1 pg (27.0-33.4) L 09/28/19 03:08 MCHC 34.1 g/dL (32.0-36.0) 09/28/19 03:08 RDW 17.4 % (11.5-14.0) H 09/28/19 03:08 Plt Count 463 10^3/uL (150-450) H 09/28/19 03:08 Lymph % (Auto) 15.5 % (13-45) 09/28/19 03:08 [place] % (Auto) 7.0 % (3-13) 09/28/19 03:08 Eos % (Auto) 0.9 % (0-6) 09/28/19 03:08 Baso % (Auto) 0.8 % (0-2) 09/28/19 03:08 Absolute Neuts (auto) 11.4 10^3/uL (1.7-8.2) H 09/28/19 03:08 Absolute Lymphs (auto) 2.3 10^3/uL (0.5-4.7) 09/28/19 03:08 Absolute Monos (auto) 1.0 10^3/uL (0.1-1.4) 09/28/19 03:08 Absolute Eos (auto) 0.1 10^3/uL (0.0-0.6) 09/28/19 03:08 Absolute Basos (auto) 0.1 10^3/uL (0.0-0.2) 09/28/19 03:08 Seg Neutrophils % 75.8 % (42-78) 09/28/19 03:08 PT 14.7 SEC (11.4-15.4) 09/25/19 23:32 INR 1.14 09/25/19 23:32 Sodium 131.7 mmol/L (137-145) L 09/28/19 03:08 Potassium 3.7 mmol/L (3.6-5.0) 09/28/19 03:08 Chloride 92 mmol/L (98-107) L 09/28/19 03:08 Carbon Dioxide 27 mmol/L (22-30) 09/28/19 03:08 Anion Gap 13 (5-19) 09/28/19 03:08 BUN 13 mg/dL (7-20) 09/28/19 03:08 Creatinine 0.73 mg/dL (0.52-1.25) 09/28/19 03:08 Est GFR ( Amer) > 60 (>60) 09/28/19 03:08 Est GFR (MDRD) Non-Af > 60 (>60) 09/28/19 03:08 Glucose 132 mg/dL (75-110) H 09/28/19 03:08 POC Glucose 161 mg/dL (70-110) H 09/29/19 08:35 Hemoglobin A1c % 6.7 % (4.7-6.0) H 09/26/19 05:38 Lactic Acid 2.1 mmol/L (0.7-2.1) 09/25/19 23:32 Calcium 9.3 mg/dL (8.4-10.2) 09/28/19 03:08 Total Bilirubin 0.7 mg/dL (0.2-1.3) 09/28/19 03:08 Direct Bilirubin 0.1 mg/dL (0.0-0.4) 09/28/19 03:08 Neonat Total Bilirubin Not Reportable 09/28/19 03:08 Neonat Direct Bilirubin Not Reportable 09/28/19 03:08 Neonat Indirect Bili Not Reportable 09/28/19 03:08 AST 32 U/L (14-36) 09/28/19 03:08 ALT 27 U/L (<35) 09/28/19 03:08 Alkaline Phosphatase 60 U/L (38-126) 09/28/19 03:08 Creatine Kinase 50 U/L (30-135) 09/28/19 14:53 CK-MB (CK-2) 1.25 ng/mL (<4.55) 09/28/19 14:53 Troponin I < 0.012 ng/mL 09/28/19 14:53 NT-Pro-B Natriuret Pep 513 pg/mL (<450) H 09/26/19 05:58 Total Protein 7.8 g/dL (6.3-8.2) 09/28/19 03:08 Albumin 4.2 g/dL (3.5-5.0) 09/28/19 03:08 Urine Color YELLOW 09/25/19 21:50 Urine Appearance CLEAR 09/25/19 21:50 Urine pH 7.0 (5.0-9.0) 09/25/19 21:50 Ur Specific [place] 1.010 09/25/19 21:50 Urine Protein NEGATIVE mg/dL (NEGATIVE) 09/25/19 21:50 Urine Glucose (UA) NEGATIVE mg/dL (NEGATIVE) 09/25/19 21:50 Urine Ketones NEGATIVE mg/dL (NEGATIVE) 09/25/19 21:50 Urine Blood SMALL (NEGATIVE) H 09/25/19 21:50 Urine Nitrite NEGATIVE (NEGATIVE) 09/25/19 21:50 Urine Bilirubin NEGATIVE (NEGATIVE) 09/25/19 21:50 Urine Urobilinogen NEGATIVE mg/dL (<2.0) 09/25/19 21:50 Ur Leukocyte Esterase SMALL (NEGATIVE) H 09/25/19 21:50 Urine WBC (Auto) 8 /HPF 09/25/19 21:50 Urine RBC (Auto) 1 /HPF 09/25/19 21:50 Squamous Epi Cells Auto 1 /HPF 09/25/19 21:50 Urine Mucus (Auto) RARE /LPF 09/25/19 21:50 Urine Ascorbic Acid NEGATIVE (NEGATIVE) 09/25/19 21:50 09/25/19 09/25/19 09/26/19 22:10 22:10 05:58 CK-MB (CK-2) 1.46 Troponin I < 0.012 Cancelled NT-Pro-B Natriuret Pep 368 Cancelled 513 H 09/28/19 09/28/19 09/28/19 03:08 09:30 14:53 CK-MB (CK-2) 1.12 1.26 1.25 Troponin I < 0.012 < 0.012 < 0.012 NT-Pro-B Natriuret Pep Impressions: Chest X-Ray 09/25/19 21:23 IMPRESSION: Patchy left lower lung opacity consistent with atelectasis or early pneumonia. Venous Doppler Study 09/27/19 00:00 IMPRESSION: NO EVIDENCE DVT OR SVT IN EITHER LEG. Chest X-Ray 09/28/19 00:00 IMPRESSION: Little interval change copyright 2011 [facility]- All Rights Reserved Stroke Is this a Stroke Patient?: No Acute Heart Failure - Is this a Heart Failure Patient?: No
== END 2019-09-29 11:40 | disposition home health service (06) | DRG 195 ==
LOC: ER 21:16 → EH 23:52 → 3S 09-26 01:25
PROVIDERS: ADMIT Internal Medicine; ATTEND Internal Medicine
DX: J18.9 Pneumonia, unspecified organism (principal); E78.00 Pure hypercholesterolemia, unspecified; I10 Essential (primary) hypertension; E11.42 Type 2 diabetes mellitus with diabetic polyneuropathy; J44.9 Chronic obstructive pulmonary disease, unspecified; K21.9 Gastro-esophageal reflux disease without esophagitis; M51.16 Intervertebral disc disorders with radiculopathy, lumbar region; M54.5 Low back pain; Z79.84 Long term (current) use of oral hypoglycemic drugs; Z79.891 Long term (current) use of opiate analgesic; Z79.899 Other long term (current) drug therapy
CPT/HCPCS: 36415; 71045; 80053; 81001; 82550; 82553; 82962; 83036; 83605; 83880; 84484; 85025; 85610; 87040; 87086; 87088; 87186; 93005; 93010; 93306; 93970; 94640; 99285; J0696; J1170; J1650; J1815; J1940; J1956; J3490; J7050; J7120; J7620

== ENCOUNTER 2019-09-30 11:59 | Emergency (ER) | payer MEDICARE, MEDICAID ==
--- NOTE | 2019-09-30 12:22 | ER Document Report ---
ED Medical Screen (RME) - General Chief Complaint: Back Pain Stated Complaint: BACK PAIN Time Seen by Provider: 09/30/19 12:17 Primary Care Provider: MIMI ROTH MD [Primary Care Provider] - Follow up as needed Mode of Arrival: Wheelchair Information source: Patient Notes: 79-year-old female presented to ED for complaint of back pain. She states she needs a prescription for tramadol. She was discharged yesterday from the hospital. She states she has not had any falls since yesterday. She is a patient of Dr. Winn. She states she forgot to ask him for pain medications. She states she would like to see another provider for her back pain. I have greeted and performed a rapid initial assessment of this patient. A comprehensive ED assessment and evaluation of the patient, analysis of test results and completion of medical decision making process will be conducted by an additional ED providers. TRAVEL OUTSIDE OF THE [place] IN LAST 30 DAYS: No - Related Data Allergies/Adverse Reactions: No Known Allergies Allergy (Verified 09/30/19 12:16) Home Medications: dm. htn Past Medical History - Social History Chew tobacco use (# tins/day): No Frequency of alcohol use: None Drug Abuse: None - Past Medical History Cardiac Medical History: Reports: Hx Hypercholesterolemia, Hx Hypertension Pulmonary Medical History: Reports: Hx COPD Endocrine Medical History: Reports: Hx Diabetes Mellitus Type 2 - "borderline" Renal/ Medical History: Reports: Hx Ovarian Cysts Malignancy Medical History: Reports: Hx Cervical Cancer - uterine cancer GI Medical History: Reports: Hx Gastroesophageal Reflux Disease Musculoskeltal Medical History: Reports Hx Arthritis - back, shoulders, and neck, Reports Hx Musculoskeletal Deformity - Chronic back pain arthritis and back shoulder or neck Psychiatric Medical History: Reports: Hx Bipolar Disorder, Hx Depression Traumatic Medical History: Reports: Hx Fractures Past Surgical History: Reports: Hx Section, Hx Gynecologic Surgery, Hx Hysterectomy, Hx Orthopedic Surgery - L shoulder, Hx Tubal Ligation - Immunizations Immunizations up to date: Yes Hx Diphtheria, Pertussis, Tetanus Vaccination: Yes Physical Exam - Vital signs Vitals: Temp Pulse Resp BP Pulse Ox 99.3 F 100 21 H 98/67 L 96 09/30/19 12:04 09/30/19 12:04 09/30/19 12:04 09/30/19 12:04 09/30/19 12:04 Course - Vital Signs Vital signs: Temp Pulse Resp BP Pulse Ox 99.3 F 100 21 H 98/67 L 96 09/30/19 12:16 09/30/19 12:04 09/30/19 12:04 09/30/19 12:04 09/30/19 12:04 Doctor's Discharge - Discharge Referrals: MIMI ROTH MD [Primary Care Provider] - Follow up as needed
--- NOTE | 2019-09-30 14:44 | ER Document Report ---
ED General Pain - General Chief Complaint: Back Pain Stated Complaint: BACK PAIN Time Seen by Provider: 09/30/19 12:17 Primary Care Provider: MIMI ROTH MD [NO LOCAL MD] - Follow up as needed Mode of Arrival: Wheelchair Information source: Patient, [facility] Records Notes: Patient is a 79-year-old female returns to the emergency room with no new complaints only requesting narcotic medication. Patient states she was discharged on hospital yesterday for pneumonia and the doctor gave her pain medication while she was in the hospital but did not discharge her with any. She is here today with no new complaints no new trauma no new falls and is requesting tramadol again. Patient has been here multiple times for these and is requesting us to refill one more time. She states that she has an appointment with pain management on 06 October. She states she continues in low back pain which is not changed in intensity or duration from all the other visits. She has had no loss of urine or stool. She is ambulatory on her own without any difficulty. Patient denies any urinary symptomatology. TRAVEL OUTSIDE OF THE [place] IN LAST 30 DAYS: No - HPI Onset: Other - Chronic Onset/Duration: Persistent Quality of pain: Sharp Pain Level: 5 Context: Chronic problem Typical of prior episodes of painful crisis: Yes Associated symptoms: None Exacerbated by: Sitting, Standing, Movement, Walking Relieved by: Other - Narcotic medication Similar symptoms previously: Yes Recently seen / treated by doctor: Yes - Related Data Allergies/Adverse Reactions: No Known Allergies Allergy (Verified 09/30/19 12:16) Home Medications: dm. htn Past Medical History - General Information source: Patient - Social History Smoking Status: Never Smoker Chew tobacco use (# tins/day): No Frequency of alcohol use: None Drug Abuse: None Family History: Reviewed & Not Pertinent Patient has homicidal ideation: No - Past Medical History Cardiac Medical History: Reports: Hx Hypercholesterolemia, Hx Hypertension Pulmonary Medical History: Reports: Hx COPD Endocrine Medical History: Reports: Hx Diabetes Mellitus Type 2 - "borderline" Renal/ Medical History: Reports: Hx Ovarian Cysts Malignancy Medical History: Reports: Hx Cervical Cancer - uterine cancer GI Medical History: Reports: Hx Gastroesophageal Reflux Disease Musculoskeletal Medical History: Reports Hx Arthritis - back, shoulders, and neck, Reports Hx Musculoskeletal Deformity - Chronic back pain arthritis and back shoulder or neck Psychiatric Medical History: Reports: Hx Bipolar Disorder, Hx Depression Traumatic Medical History: Reports: Hx Fractures Past Surgical History: Reports: Hx Section, Hx Gynecologic Surgery, Hx Hysterectomy, Hx Orthopedic Surgery - L shoulder, Hx Tubal Ligation - Immunizations Immunizations up to date: Yes Hx Diphtheria, Pertussis, Tetanus Vaccination: Yes Hx Pneumococcal Vaccination: 02/01/13 Review of Systems - Review of Systems Constitutional: No symptoms reported EENT: No symptoms reported Cardiovascular: No symptoms reported Respiratory: No symptoms reported Gastrointestinal: No symptoms reported Genitourinary: No symptoms reported Female Genitourinary: No symptoms reported Musculoskeletal: Back pain Skin: No symptoms reported Hematologic/Lymphatic: No symptoms reported Neurological/Psychological: No symptoms reported -: Yes All other systems reviewed and negative Physical Exam - Vital signs Vitals: Temp Pulse Resp BP Pulse Ox 99.3 F 100 21 H 98/67 L 96 09/30/19 12:04 09/30/19 12:04 09/30/19 12:04 09/30/19 12:04 09/30/19 12:04 Interpretation: Hypotensive - Notes Notes: PHYSICAL EXAMINATION: GENERAL: Well-appearing, well-nourished and in no acute distress. HEAD: Atraumatic, normocephalic. EYES: Pupils equal round and reactive to light, extraocular movements intact, conjunctiva are normal. ENT: Nares patent, oropharynx clear without exudates. Moist mucous membranes. NECK: Normal range of motion, supple without lymphadenopathy LUNGS: Breath sounds clear to auscultation bilaterally and equal. No wheezes rales or rhonchi. HEART: Regular rate and rhythm without murmurs ABDOMEN: Soft, nontender, nondistended abdomen. No guarding, no rebound. No masses appreciated. Female : deferred Musculoskeletal: Examination patient her concern is her low back. Patient has some mild tenderness paravertebrally around the L4-L5 area on palpation. She has positive straight leg raises but question whether it is intentional or not. Patient displays good bilateral DTRs lower extremities. She has good strength against resistance with her flexion extension of the knees as well as patient displays good sensation from the ankles to the groin and from the outside of the ankles to the hips. There is no sign of saddle paresthesia. No NEUROLOGICAL: Cranial nerves grossly intact. Normal speech, normal gait. Normal sensory, motor exams PSYCH: Normal mood, normal affect. SKIN: Warm, Dry, normal turgor, no rashes or lesions noted. Course - Re-evaluation Re-evalutation: Patient was interviewed in the room with nurse present. The first question of patient's mouth was that she wanted pain medication. I have gone back and research patient she is been here to the emergency room multiple times for narcotic medication most notably tramadol. It is also been documented multiple times to Dr. Winn has refused to give her pain medication from his office. She has been given referrals to pain management. She states that she went to pain management yesterday after discharge and that she can get an appointment to see them until October 06 and her pain is no better. She also states that she was just discharged from the hospital yesterday that where they gave her pain medication while in the hospital but did not discharge her with any. I went back and looked in patient's medication list and pharmacies that have dispensed recently patient has received 60 tramadol since the second week of September. She received 15 tramadol tablets on the and she also received 45 tramadol pills on the . These were from 2 different providers. So between the and patient has gone through 45 tablets. I have informed patient that we will not write for chronic narcotic medications at emergency room an ymore that she needs to establish with a pain management or talk to Dr. Winn about what other options she has. I have agreed to give her a muscle relaxer for nighttime I will write her for Robaxin 500 mg at bedtime and give her 15 tablets. - Vital Signs Vital signs: Temp Pulse Resp BP Pulse Ox 99.3 F 100 21 H 98/67 L 96 09/30/19 12:16 09/30/19 12:04 09/30/19 12:04 09/30/19 12:04 09/30/19 12:04 Discharge - Discharge Clinical Impression: Drug-seeking behavior, Chronic back pain Disposition: HOME, SELF-CARE Instructions: Ice Packs ([facility]), Low Back Pain ([facility]), Muscle Strain ([facility]) Additional Instructions: As we discussed it is not appropriate to come to the emergency room requesting pain medication refills. You have a primary care doctor and you also have pain management that you tell me that you have an appointment with. It is also evident that since the of this month you have received 60 tramadol tablets. That should be sufficient for the discomfort you are feeling but according to you have been out of them for a few days. So at this point time we will write for just a muscle relaxer for bedtime you can continue with your other medications including the Celebrex and you need to contact your primary care doctor Dr. Winn to discuss other options. Prescriptions: Methocarbamol [Robaxin 500 mg Tablet] 500 mg PO BID #12 tablet Referrals: MIMI ROTH MD [NO LOCAL MD] - Follow up as needed
[2019-09-30 15:27] VITALS: BP 139/71
== END 2019-09-30 15:27 | disposition home or self-care (01) ==
LOC: ER 11:59
DX: G89.29 Other chronic pain (principal); M54.5 Low back pain; Z76.5 Malingerer [conscious simulation]; J44.9 Chronic obstructive pulmonary disease, unspecified; R73.03 Prediabetes; I10 Essential (primary) hypertension; Z79.899 Other long term (current) drug therapy
CPT/HCPCS: 99281

== ENCOUNTER 2019-11-23 11:17 | Observation (INO) | payer MEDICARE, MEDICAID ==
--- NOTE | 2019-11-23 12:51 | RADIOLOGY REPORT (SQ) ---
EXAM DESCRIPTION: CHEST SINGLE VIEW IMAGES COMPLETED DATE/TIME: 11/23/2019 12:42 pm REASON FOR STUDY: swelling COMPARISON: 09/28/2019 EXAM PARAMETERS: NUMBER OF VIEWS: One view. TECHNIQUE: Single frontal radiographic view of the chest acquired. RADIATION DOSE: NA LIMITATIONS: Low lung volumes. FINDINGS: LUNGS AND PLEURA: No consolidation or effusions. Minimal linear scarring or atelectasis i n the left base. No pneumothorax. MEDIASTINUM AND HILAR STRUCTURES: No masses. Contour normal. HEART AND VASCULAR STRUCTURES: Heart normal in size. Normal vasculature. BONES: No acute findings. HARDWARE: None in the chest. OTHER: No other significant finding. IMPRESSION: NO ACUTE RADIOGRAPHIC FINDING IN THE CHEST. TECHNICAL DOCUMENTATION: JOB ID: [id number] 2010 [employer]- All Rights Reserved Reading location - IP/workstation name: [email or web address]
[2019-11-23 12:52] LABS: ABSOLUTE BASOPHILS # (AUTO) 0.1 10^3/uL (0.0-0.2); ABSOLUTE LYMPHOCYTES (AUTO) 0.7 10^3/uL (0.5-4.7); ABSOLUTE MONOCYTES (AUTO) 0.4 10^3/uL (0.1-1.4); ABSOLUTE NEUT (AUTO) 9.4 10^3/uL (1.7-8.2); BASOPHILS % (AUTO) 0.5 % (0-2); HEMATOCRIT 34.3 % (36.0-47.0); HEMOGLOBIN 11.5 g/dL (12.0-15.5); LYMPHOCYTES % (AUTO) 6.3 % (13-45); MEAN CORPUSCULAR HEMOGLOBIN 25.4 pg (27.0-33.4); MEAN CORPUSCULAR HGB CONC 33.4 g/dL (32.0-36.0); MEAN CORPUSCULAR VOLUME 76 fl (80-97); MONOCYTES % (AUTO) 3.6 % (3-13); PLATELET COUNT 436 10^3/uL (150-450); RED BLOOD COUNT 4.51 10^6/uL (3.72-5.28); RED CELL DISTRIBUTION WIDTH 18.1 % (11.5-14.0); SEGMENTED NEUTROPHILS % (AUTO) 89.6 % (42-78); TOTAL CELLS COUNTED % (AUTO) 100 %; WHITE BLOOD COUNT 10.5 10^3/uL (4.0-10.5)
[2019-11-23 13:11] LABS: ALBUMIN 4.5 g/dL (3.5-5.0); ALKALINE PHOSPHATASE 49 U/L (38-126); ANION GAP 15 (5-19); ASPARTATE AMINO TRANSFERASE 28 U/L (14-36); BILIRUBIN,TOTAL 0.5 mg/dL (0.2-1.3); BLOOD UREA NITROGEN 20 mg/dL (7-20); CALCIUM 9.7 mg/dL (8.4-10.2); CARBON DIOXIDE 16 mmol/L (22-30); CHLORIDE 101 mmol/L (98-107); GLUCOSE 392 mg/dL (75-110); POTASSIUM 4.6 mmol/L (3.6-5.0); TOTAL PROTEIN 7.8 g/dL (6.3-8.2)
[2019-11-23 13:25] LABS: FREE T4 (FREE THYROXINE) 1.09 ng/dL (0.78-2.19)
[2019-11-23 13:39] LABS: THYROID STIMULATING HORMONE 0.84 uIU/mL (0.47-4.68)
[2019-11-23 15:35] LABS: UR PRO/CREAT RATIO RESULT 1.7 mg/mg (0.0-0.2); URINE CREATININE 20.9 mg/dL (15-278); URINE PROTEIN 35.1 mg/dL (<12)
[2019-11-23] MEDS ORDERED: HYDROMORPHONE HCL INJ/PF 2 MG/ML AMPULE IV PRN (15:50)
[2019-11-23] MEDS ORDERED: DEXTROSE 40% GEL 15 GM TUBE X 2 PO PRN (16:00)
[2019-11-23] MEDS ORDERED: DEXTROSE 40% GEL 15 GM TUBE PO PRN (16:00)
[2019-11-23] MEDS ORDERED: DEXTROSE 50%-WATER SYRINGE 12.5 GM/25 ML DOSE IV PRN (16:00)
[2019-11-23] MEDS ORDERED: DEXTROSE 50%-WATER SYRINGE 25 GM/50 ML DOSE IV PRN (16:00)
[2019-11-23] MEDS ORDERED: GLUCAGON,HUMAN RECOMB 1 MG INJ IM PRN (16:00)
[2019-11-23] MEDS: OXYCODONE HCL IR 5 MG TABLET PO PRN ×2 (16:38→21:34)
[2019-11-23] MEDS: INSULIN LISPRO 100 UNIT/ML 3 ML VIAL SUBCUT SCH ×2 (16:38→21:33)
--- NOTE | 2019-11-23 17:23 | PDOC H&P ---
History of Present Illness Admission Date/PCP: 11/23/19 11:17 ROSLYN TOLEDO MD History of Present Illness: ALANA ROMERO is a 79 year old female, She came to the office for evaluation and management of bilateral lower extremity edema, she was requesting to be admitted for management, A stat venous Doppler, was negative for deep vein thrombosis. She had this previously, she was advised from previous encounter to use compression stockings but she did not follow the recommendation, She has type 2 diabetes mellitus she is poorly adherent with her medication she also has underlining COPD. She was brought in for observation to be treated with IV furosemide and hopefully discharge in 24 hours Past Medical History Cardiac Medical History: Reports: Hyperlipidema, Hypertension Pulmonary Medical History: Reports: Chronic Obstructive Pulmonary Disease (COPD) Endocrine Medical History: Reports: Diabetes Mellitus Type 2 - "borderline" Malignancy Medical History: Reports: Cervical Cancer - uterine cancer GI Medical History: Reports: Gastroesophageal Reflux Disease Musculoskeltal Medical History: Reports: Arthritis - back, shoulders, and neck Psychiatric Medical History: Reports: Bipolar Disorder, Depression Past Surgical History Past Surgical History: Reports: Section, Hysterectomy, Orthopedic Surgery - L shoulder, Tubal Ligation Social History Smoking Status: Former Smoker Frequency of Alcohol Use: None Hx Recreational Drug Use: No Drugs: None Hx Prescription Drug Abuse: No Family History Family History: Reviewed & Not Pertinent Parental Family History Reviewed: Yes Children Family History Reviewed: Yes Sibling(s) Family History Reviewed.: Yes Medication/Allergy Home Medications: RX: Pramipexole Di-HCl [Pramipexole Dihydrochloride] 0.5 mg PO TID 01/13/19 RX: Mirtazapine 45 mg PO QHS 05/18/19 RX: Tramadol HCl [Ultram 50 mg Tablet] 50 mg PO Q8HP PRN 05/18/19 RX: Lisinopril [Prinivil 10 mg Tablet] 10 mg PO DAILY #90 tablet 05/23/19 RX: Sitagliptin Phosphate [Januvia] 100 mg PO DAILY #90 tablet 05/23/19 Albuterol Sulfate [Ventolin Hfa 8 gm Mdi] 1 puff IH Q4HP PRN 11/23/19 Celecoxib [Celebrex 100 mg Capsule] 100 mg PO DAILY 11/23/19 L.acidoph,Paracasei, B.lactis [Probiotic] 1 cap PO DAILY 11/23/19 Megestrol Acetate [Megace Rika 400 mg/10 ml Udcup] 1 ml PO BID 11/23/19 Umeclidinium Brm/Vilanterol Tr [Anoro Ellipta 62.5-25 Mcg INH] 1 puff IH DAILY 11/23/19 Allergies/Adverse Reactions: No Known Allergies Allergy (Verified 09/30/19 12:16) Review of Systems Constitutional: ABSENT: chills, fever(s), headache(s), weight gain, weight loss Eyes: ABSENT: visual disturbances Ears: ABSENT: hearing changes Cardiovascular: PRESENT: edema. ABSENT: chest pain, dyspnea on exertion, orthropnea, palpitations Respiratory: ABSENT: cough, hemoptysis Gastrointestinal: ABSENT: abdominal pain, constipation, diarrhea, hematemesis, hematochezia, nausea, vomiting Genitourinary: ABSENT: dysuria, hematuria Musculoskeletal: ABSENT: joint swelling Integumentary: ABSENT: rash, wounds Neurological: ABSENT: abnormal gait, abnormal speech, confusion, dizziness, focal weakness, syncope Psychiatric: ABSENT: anxiety, depression, homidical ideation, suicidal ideation Endocrine: ABSENT: cold intolerance, heat intolerance, menstrual abnormalities, polydipsia, polyuria Hematologic/Lymphatic: ABSENT: easy bleeding, easy bruising, lymphadenopathy Physical Exam Vital Signs: Temp Pulse Resp BP Pulse Ox 98.0 F 102 H 16 152/93 H 98 11/23/19 15:16 11/23/19 15:16 11/23/19 15:16 11/23/19 15:16 11/23/19 15:16 Intake & Output 11/22/19 11/23/19 11/24/19 06:59 06:59 06:59 Intake Total 240 Balance 240 Weight 73.9 kg General appearance: PRESENT: no acute distress Head exam: PRESENT: atraumatic, normocephalic Eye exam: PRESENT: PERRLA Ear exam: PRESENT: normal external ear exam Mouth exam: PRESENT: moist, tongue midline Neck exam: PRESENT: full ROM Respiratory exam: PRESENT: clear to auscultation isak Cardiovascular exam: PRESENT: RRR, +S1, +S2 Pulses: PRESENT: normal dorsalis pedis pul, +2 pedal pulses bilateral Vascular exam: PRESENT: normal capillary refill GI/Abdominal exam: PRESENT: normal bowel sounds, soft Rectal exam: PRESENT: deferred Extremities exam: PRESENT: pedal edema Neurological exam: PRESENT: alert, CN II-XII grossly intact Psychiatric exam: PRESENT: appropriate affect, normal mood Skin exam: PRESENT: dry, intact, warm Results Laboratory Results: 11/23/19 12:32 11/23/19 12:32 11/23/19 11/23/19 11/23/19 12:32 12:32 12:32 WBC 10.5 RBC 4.51 Hgb 11.5 L Hct 34.3 L MCV 76 L MCH 25.4 L MCHC 33.4 RDW 18.1 H Plt Count 436 Seg Neutrophils % 89.6 H Sodium 131.7 L Potassium 4.6 Chloride 101 Carbon Dioxide 16 L Anion Gap 15 BUN 20 Creatinine 0.54 Est GFR ( Amer) > 60 Glucose 392 H Calcium 9.7 Total Bilirubin 0.5 AST 28 Alkaline Phosphatase 49 Total Protein 7.8 Albumin 4.5 TSH 0.84 Free T4 1.09 11/23/19 12:32 NT-Pro-B Natriuret Pep 1030 H Impressions: Chest X-Ray 11/23/19 11:43 IMPRESSION: NO ACUTE RADIOGRAPHIC FINDING IN THE CHEST. Assessment & Plan - Diagnosis (1) Bilateral lower extremity edema Is this a current diagnosis for this admission?: Yes Plan: She has bilateral lower extremity edema, she is admitted to be treated with IV furosemide infusion (2) T2DM (type 2 diabetes mellitus) Qualifiers: Diabetes mellitus technician terminal and repeater insulin use: without technician terminal and repeater use Diabetes mellitus complication status: with neurologic complications Diabetes mellitus complication detail: with polyneuropathy Qualified Code(s): E11.42 - Type 2 diabetes mellitus with diabetic polyneuropathy Is this a current diagnosis for this admission?: Yes
[2019-11-23] MEDS ORDERED: (PENDING PHARMACY ID) (Umeclidinium Brm/Vilanterol Tr [Anoro Ellipta 62.5-25 Mcg Inh] 1 PU IH SCH (17:30)
[2019-11-23] MEDS ORDERED: PRAMIPEXOLE DI HCL 0.5 MG PO SCH (18:00)
[2019-11-23] MEDS: SITAGLIPTIN PHOSPHATE 50 MG TABLET PO SCH (18:17)
[2019-11-23] MEDS: LISINOPRIL 10 MG TABLET PO SCH (18:17)
[2019-11-23] MEDS: LACTOBACILLUS ACIDOPHILUS 250 MG TAB PO SCH (18:17)
[2019-11-23] MEDS: MEGESTROL ACETATE SUSP 400 MG/10 ML UDCUP PO SCH (18:47)
--- NOTE | 2019-11-23 20:34 | RADIOLOGY REPORT (SQ) ---
US LOWER EXTREMITY VEINS HISTORY: Leg pain and swelling. COMPARISON: None. TECHNIQUE: [place]-scale, color Doppler and spectral Doppler images of the bilateral lower extremity veins were obtained. FINDINGS: RIGHT: The right common femoral, superficial femoral and popliteal veins are patent and compressible. Normal augmentation and color Doppler blood flow in the aforementioned veins. The visualized calf veins are also patent. Diffuse subcutaneous edema is present. LEFT: The left common femoral, superficial femoral and popliteal veins are patent and compressible. Normal augmentation and color Doppler blood flow in the aforementioned veins. The visualized calf veins are also patent. Diffuse subcutaneous edema is present. IMPRESSION: No DVT in the bilateral lower extremities.
[2019-11-23] MEDS ORDERED: LIDOCAINE 1% INJ-PF (10 MG/ML) 30 ML SDV ONE (20:50)
--- NOTE | 2019-11-23 21:20 | Operative Report ---
Operative Report DATE OF SURGERY: 11/23/19 PREOPERATIVE DIAGNOSIS: Poor peripheral veins for IV access POSTOPERATIVE DIAGNOSIS: Same OPERATION: Insertion of right internal jugular vein triple-lumen catheter under ultrasound guidance SURGEON: BAILEY CASE ANESTHESIA: Local TISSUE REMOVED OR ALTERED: None COMPLICATIONS: None ESTIMATED BLOOD LOSS: 15 cc QUANTITATIVE BLOOD LOSS: 15 INTRAOPERATIVE FINDINGS: Normal-appearing right internal jugular vein on ultrasound PROCEDURE: After informed consent obtained patient was placed in Trendelenburg position and the right neck prepped and draped in the usual sterile fashion. With the use of the ultrasound the right internal jugular vein was then identified and local anesthesia infiltrated on the skin overlying the vein. Next the internal jugular vein was then punctured and return flow was dark blood and nonpulsatile. Guidewire was then passed through the needle towards the superior vena cava. Puncture site was then dilated. A triple-lumen catheter was inserted through the guidewire to a distance about 15cm. The guidewire was then removed and all the 3 ports aspirated blood easily and instilled saline easily. The catheter was then anchored to the skin with 3-0 silk. Biopatch placed at the insertion site and a transparent sterile dressing placed over the Biopatch and catheter. Chest x-ray will be obtained for placement to rule out any pneumothorax. Patient tolerated procedure well.
[2019-11-23] MEDS: PRAMIPEXOLE DI-HCL 0.5 MG TABLET PO SCH (21:34)
[2019-11-23] MEDS: MIRTAZAPINE 15 MG TABLET PO SCH (21:34)
--- NOTE | 2019-11-23 21:59 | RADIOLOGY REPORT (SQ) ---
CHEST 1 VIEW on 11/23/2019 at 9:25 PM CLINICAL INDICATION: Central line placement COMPARISON: 11/23/2019 at 12:45 PM FINDINGS: New right IJ central venous catheter tip is in the SVC. There is no pneumothorax. This is an improved inspiration film. There has been improvement in lower lung atelectasis. The lungs are otherwise clear. Cardiac, hilar and mediastinal contours are within normal limits. Mild vascular calcification is noted in the aorta. Pulmonary vascularity is within normal limits. IMPRESSION: No acute disease.
[2019-11-23] MEDS ORDERED: (PENDING PHARMACY ID) (Mirtazapine [Mirtazapine] 45 MG) PO SCH (22:00)
[2019-11-23] MEDS: NORMAL SALINE 250 ML with FUROSEMIDE 250 MG IV PRN ×2 (22:30)
[2019-11-24 02:43] LABS: APPEARANCE,URINE CLEAR; BILIRUBIN,URINE NEGATIVE (NEGATIVE); COLOR,URINE COLORLESS; GLUCOSE, URINE NEGATIVE (NEGATIVE); KETONES,URINE NEGATIVE (NEGATIVE); LEUKOCYTE ESTERASE,URINE NEGATIVE (NEGATIVE); NITRITE,URINE NEGATIVE (NEGATIVE); PROTEIN,URINE NEGATIVE (NEGATIVE); URINE SPECIFIC GRAVITY 1.005; UROBILINOGEN,URINE NEGATIVE mg/dL (<2.0)
[2019-11-24] MEDS: OXYCODONE HCL IR 5 MG TABLET PO PRN ×4 (04:10→23:30)
[2019-11-24] MEDS: MEGESTROL ACETATE SUSP 400 MG/10 ML UDCUP PO SCH ×2 (05:24→17:09)
[2019-11-24] MEDS: PRAMIPEXOLE DI-HCL 0.5 MG TABLET PO SCH ×3 (05:25→22:05)
[2019-11-24] MEDS: INSULIN LISPRO 100 UNIT/ML 3 ML VIAL SUBCUT SCH ×4 (07:32→22:03)
[2019-11-24] MEDS: SITAGLIPTIN PHOSPHATE 50 MG TABLET PO SCH (09:14)
[2019-11-24] MEDS: LACTOBACILLUS ACIDOPHILUS 250 MG TAB PO SCH (09:14)
[2019-11-24] MEDS: LISINOPRIL 10 MG TABLET PO SCH (09:14)
[2019-11-24] MEDS ORDERED: (PENDING PHARMACY ID) (L.Acidoph,Paracasei, B.Lactis [Probiotic] 1 CAP) PO SCH (10:00)
[2019-11-24] MEDS ORDERED: IPRATROPIUM/ALBUTEROL 0.5-2.5 MG/3 ML AMPUL NEB PRN (13:37)
[2019-11-24] MEDS: LORATADINE 10 MG TABLET PO SCH (14:00)
[2019-11-24] MEDS: NORMAL SALINE 250 ML with FUROSEMIDE 250 MG IV PRN ×2 (17:09)
[2019-11-24] MEDS ORDERED: PHARMACY COMMUNICATION ORDER MC SCH (18:00)
[2019-11-24] MEDS: MIRTAZAPINE 15 MG TABLET PO SCH (22:04)
[2019-11-25] MEDS: OXYCODONE HCL IR 5 MG TABLET PO PRN ×2 (04:03→07:47)
[2019-11-25] MEDS: MEGESTROL ACETATE SUSP 400 MG/10 ML UDCUP PO SCH (06:03)
[2019-11-25] MEDS: PRAMIPEXOLE DI-HCL 0.5 MG TABLET PO SCH (06:04)
[2019-11-25] MEDS: INSULIN LISPRO 100 UNIT/ML 3 ML VIAL SUBCUT SCH (07:47)
[2019-11-25 08:14] VITALS: BP 151/75
[2019-11-25] MEDS: LACTOBACILLUS ACIDOPHILUS 250 MG TAB PO SCH (09:41)
[2019-11-25] MEDS: LISINOPRIL 10 MG TABLET PO SCH (09:41)
[2019-11-25] MEDS: LORATADINE 10 MG TABLET PO SCH (09:41)
[2019-11-25] MEDS: SITAGLIPTIN PHOSPHATE 50 MG TABLET PO SCH (10:01)
--- NOTE | 2019-11-25 19:36 | PDOC DISCHARGE SUMMARY ---
Impression - Admit/DC Date/PCP Admission Date/Primary Care Provider: 11/23/19 11:17 ROSLYN TOLEDO MD Discharge Date: 11/25/19 - Discharge Diagnosis (1) Bilateral lower extremity edema Is this a current diagnosis for this admission?: Yes (2) T2DM (type 2 diabetes mellitus) Is this a current diagnosis for this admission?: Yes - Additional Information Discharge Diet: Diabetic Discharge Activity: Activity As Tolerated, Balance Activity w/Rest Referrals: ROSLYN TOLEDO MD [Primary Care Provider] - 11/30/19 9:00 am Prescriptions: Dapagliflozin Propanediol [Farxiga] 10 mg PO DAILY #90 tablet Home Medications: RX: Pramipexole Di-HCl [Pramipexole Dihydrochloride] 0.5 mg PO TID 01/13/19 RX: Mirtazapine 45 mg PO QHS 05/18/19 RX: Lisinopril [Prinivil 10 mg Tablet] 10 mg PO DAILY #90 tablet 05/23/19 RX: Sitagliptin Phosphate [Januvia] 100 mg PO DAILY #90 tablet 05/23/19 RX: Albuterol Sulfate [Ventolin Hfa 8 gm Mdi] 1 puff IH Q4HP PRN 11/23/19 RX: L.acidoph,Paracasei, B.lactis [Probiotic] 1 cap PO DAILY 11/23/19 RX: Megestrol Acetate [Megace Rika 400 mg/10 ml Udcup] 1 ml PO BID 11/23/19 RX: Umeclidinium Brm/Vilanterol Tr [Anoro Ellipta 62.5-25 Mcg INH] 1 puff IH DAILY 11/23/19 Dapagliflozin Propanediol [Farxiga] 10 mg PO DAILY #90 tablet 11/24/19 History of Present Illiness History of Present Illness: ALANA ROMERO is a 79 year old female, She came to the office for evaluation and management of bilateral lower extremity edema, she was requesting to be admitted for management, A stat venous Doppler, was negative for deep vein thrombosis. She had this previously, she was advised from previous encounter to use compression stockings but she did not follow the recommendation, She has type 2 diabetes mellitus she is poorly adherent with her medication she also has underlining COPD. She was brought in for observation to be treated with IV furosemide and hopefully discharge in 24 hours Hospital Course Hospital Course: Patient was admitted for the management of lower extremity swelling/edema, this was treated with furosemide infusion for diuresis. She was found to have uncontrolled diabetes, she is being discharged home today, the medication for the control of diabetes was adjusted. There is near resolution of the lower extremity edema Physical Exam Vital Signs: Temp Pulse Resp BP Pulse Ox 97.6 F 91 18 151/75 H 93 11/25/19 10:17 11/25/19 10:17 11/25/19 10:17 11/25/19 10:17 11/25/19 10:17 Intake & Output 11/24/19 11/25/19 11/26/19 06:59 06:59 06:59 Intake Total 702 1808 Output Total 2850 1300 Balance -2148 508 Weight 77.1 kg 71.5 kg General appearance: PRESENT: no acute distress Eye exam: PRESENT: PERRLA Respiratory exam: PRESENT: clear to auscultation isak Cardiovascular exam: PRESENT: +S1, +S2 GI/Abdominal exam: PRESENT: soft Neurological exam: PRESENT: alert Results Laboratory Results: WBC 10.5 10^3/uL (4.0-10.5) 11/23/19 12:32 RBC 4.51 10^6/uL (3.72-5.28) 11/23/19 12:32 Hgb 11.5 g/dL (12.0-15.5) L 11/23/19 12:32 Hct 34.3 % (36.0-47.0) L 11/23/19 12:32 MCV 76 fl (80-97) L 11/23/19 12:32 MCH 25.4 pg (27.0-33.4) L 11/23/19 12:32 MCHC 33.4 g/dL (32.0-36.0) 11/23/19 12:32 RDW 18.1 % (11.5-14.0) H 11/23/19 12:32 Plt Count 436 10^3/uL (150-450) 11/23/19 12:32 Lymph % (Auto) 6.3 % (13-45) L 11/23/19 12:32 [place] % (Auto) 3.6 % (3-13) 11/23/19 12:32 Eos % (Auto) 0.0 % (0-6) 11/23/19 12:32 Baso % (Auto) 0.5 % (0-2) 11/23/19 12:32 Absolute Neuts (auto) 9.4 10^3/uL (1.7-8.2) H 11/23/19 12:32 Absolute Lymphs (auto) 0.7 10^3/uL (0.5-4.7) 11/23/19 12:32 Absolute Monos (auto) 0.4 10^3/uL (0.1-1.4) 11/23/19 12:32 Absolute Eos (auto) 0.0 10^3/uL (0.0-0.6) 11/23/19 12:32 Absolute Basos (auto) 0.1 10^3/uL (0.0-0.2) 11/23/19 12:32 Seg Neutrophils % 89.6 % (42-78) H 11/23/19 12:32 Sodium 131.7 mmol/L (137-145) L 11/23/19 12:32 Potassium 4.6 mmol/L (3.6-5.0) 11/23/19 12:32 Chloride 101 mmol/L (98-107) 11/23/19 12:32 Carbon Dioxide 16 mmol/L (22-30) L 11/23/19 12:32 Anion Gap 15 (5-19) 11/23/19 12:32 BUN 20 mg/dL (7-20) 11/23/19 12:32 Creatinine 0.54 mg/dL (0.52-1.25) 11/23/19 12:32 Est GFR ( Amer) > 60 (>60) 11/23/19 12:32 Est GFR (MDRD) Non-Af > 60 (>60) 11/23/19 12:32 Glucose 392 mg/dL (75-110) H 11/23/19 12:32 POC Glucose 172 mg/dL (70-110) H 11/25/19 06:21 Calcium 9.7 mg/dL (8.4-10.2) 11/23/19 12:32 Total Bilirubin 0.5 mg/dL (0.2-1.3) 11/23/19 12:32 Direct Bilirubin 0.0 mg/dL (0.0-0.4) 11/23/19 12:32 Neonat Total Bilirubin Not Reportable 11/23/19 12:32 Neonat Direct Bilirubin Not Reportable 11/23/19 12:32 Neonat Indirect Bili Not Reportable 11/23/19 12:32 AST 28 U/L (14-36) 11/23/19 12:32 ALT 23 U/L (<35) 11/23/19 12:32 Alkaline Phosphatase 49 U/L (38-126) 11/23/19 12:32 NT-Pro-B Natriuret Pep 1030 pg/mL (<450) H 11/23/19 12:32 Total Protein 7.8 g/dL (6.3-8.2) 11/23/19 12:32 Albumin 4.5 g/dL (3.5-5.0) 11/23/19 12:32 TSH 0.84 uIU/mL (0.47-4.68) 11/23/19 12:32 Free T4 1.09 ng/dL (0.78-2.19) 11/23/19 12:32 Urine Color COLORLESS 11/24/19 02:23 Urine Appearance CLEAR 11/24/19 02:23 Urine pH 6.0 (5.0-9.0) 11/24/19 02:23 Ur Specific [place] 1.005 11/24/19 02:23 Urine Protein NEGATIVE mg/dL (NEGATIVE) 11/24/19 02:23 Urine Glucose (UA) NEGATIVE mg/dL (NEGATIVE) 11/24/19 02:23 Urine Ketones NEGATIVE mg/dL (NEGATIVE) 11/24/19 02:23 Urine Blood NEGATIVE (NEGATIVE) 11/24/19 02:23 Urine Nitrite NEGATIVE (NEGATIVE) 11/24/19 02:23 Urine Bilirubin NEGATIVE (NEGATIVE) 11/24/19 02:23 Urine Urobilinogen NEGATIVE mg/dL (<2.0) 11/24/19 02:23 Ur Leukocyte Esterase NEGATIVE (NEGATIVE) 11/24/19 02:23 Urine WBC (Auto) 0 /HPF 11/24/19 02:23 Urine RBC (Auto) 0 /HPF 11/24/19 02:23 Urine Bacteria (Auto) TRACE /HPF 11/24/19 02:23 Squamous Epi Cells Auto 1 /HPF 11/24/19 02:23 Urine Mucus (Auto) RARE /LPF 11/24/19 02:23 Urine Creatinine 20.9 mg/dL (15-278) 11/23/19 14:45 Protein/Creatinin Ratio 1.7 mg/mg (0.0-0.2) H 11/23/19 14:45 Urine Total Protein 35.1 mg/dL (<12) H 11/23/19 14:45 Urine Ascorbic Acid NEGATIVE (NEGATIVE) 11/24/19 02:23 11/23/19 12:32 NT-Pro-B Natriuret Pep 1030 H Impressions: Chest X-Ray 11/23/19 00:00 IMPRESSION: No acute disease. Chest X-Ray 11/23/19 11:43 IMPRESSION: NO ACUTE RADIOGRAPHIC FINDING IN THE CHEST. Venous Doppler Study 11/23/19 11:49 IMPRESSION: No DVT in the bilateral lower extremities. Stroke Is this a Stroke Patient?: No Acute Heart Failure - Is this a Heart Failure Patient?: No
== END 2019-11-25 10:40 | disposition home health service (06) ==
LOC: 3S 11:17 → INTOOBSV 11:17 → 4N 11-25 01:06
PROVIDERS: ADMIT Internal Medicine; ATTEND Surgery
DX: R60.0 Localized edema (principal); E11.65 Type 2 diabetes mellitus with hyperglycemia; E11.42 Type 2 diabetes mellitus with diabetic polyneuropathy; J44.9 Chronic obstructive pulmonary disease, unspecified; K21.9 Gastro-esophageal reflux disease without esophagitis; I10 Essential (primary) hypertension; Z79.899 Other long term (current) drug therapy; Z85.41 Personal history of malignant neoplasm of cervix uteri; Z85.42 Personal history of malignant neoplasm of other parts of uterus; Z91.14 Patient's other noncompliance with medication regimen; Z91.19 Patient's noncompliance with other medical treatment and regimen; Z87.891 Personal history of nicotine dependence
CPT/HCPCS: 36558; 76937; C1751; 36415; 71045; 80048; 80076; 81001; 82570; 82962; 83880; 84156; 84439; 84443; 85025; 93970; G0378; G0379; J1815; J1940; J3490; J7050

== ENCOUNTER 2019-11-28 09:09 | Emergency (ER) | payer MEDICARE, MEDICAID ==
[2019-11-28 09:15] VITALS: BP 140/64
[2019-11-28] MEDS ORDERED: ACETAMINOPHEN WITH CODEINE #3 TABLET PO ONE (09:35)
--- NOTE | 2019-11-28 10:09 | RADIOLOGY REPORT (SQ) ---
EXAM DESCRIPTION: L SPINE 2 VIEWS IMAGES COMPLETED DATE/TIME: 11/28/2019 9:59 am REASON FOR STUDY: back pain COMPARISON: 08/19/2019 NUMBER OF VIEWS: Two views. TECHNIQUE: AP and lateral radiographic images acquired of the thoracic spine. LIMITATIONS: None. FINDINGS: MINERALIZATION: Normal. ALIGNMENT: Stable scoliosis with concavity toward the right. Slight retrolisthesis of L2 on L3. VERTEBRAE: Chronic T11 compression fracture DISCS: Multilevel disc space narrowing. HARDWARE: None in the spine. MEDIASTINUM AND SOFT TISSUES: Normal heart size and aortic contour. No soft tissue abnormality. VISUALIZED LUNG ALEXANDRA: Clear. OTHER: No other significant finding. IMPRESSION: 1. Chronic T11 compression fracture. No change from prior study. 2. Scoliosis with concavity toward the right. Multilevel disc space narrowing. TECHNICAL DOCUMENTATION: JOB ID: [id number] 2010 [employer]- All Rights Reserved Reading location - IP/workstation name: [email or web address]
--- NOTE | 2019-11-28 10:34 | ER Document Report ---
ED General - General Chief Complaint: Back Pain Stated Complaint: BACK PAIN Time Seen by Provider: 11/28/19 09:27 Primary Care Provider: ROSLYN TOLEDO MD [Primary Care Provider] - Follow up as needed Mode of Arrival: Wheelchair Information source: Patient TRAVEL OUTSIDE OF THE [place] IN LAST 30 DAYS: No - HPI Notes: Patient complains of low back pain. She states this is a chronic pain she has had for "years". She states she recently was on some pain medicine for it that was Tylenol 3. She states this did help but she is now out of this pain medicine. She states she was recently in the hospital and discharge approximately 4 days ago. She states she was in the hospital for congestive heart failure and not for back pain. She does state that while she was in the hospital she got pain medicine and felt better but did not get any pain medicine to go home with. She states she has had no recent falls. She states her last fall was 2 months ago. She denies any problems with bowel movements or urination. She denies any type of abnormal sensation or numbness. She states the pain is constant and worse with movement. She states is severe. It is better with rest. It does radiate across her lower back. It is a sharp pain. - Related Data Allergies/Adverse Reactions: No Known Allergies Allergy (Verified 11/28/19 09:16) Home Medications: pramipexole. farxiga. megestrol. ventolin. acetaminophen / codeine Past Medical History - General Information source: Patient - Social History Smoking Status: Former Smoker Chew tobacco use (# tins/day): No Frequency of alcohol use: None Drug Abuse: None Family History: Reviewed & Not Pertinent Patient has homicidal ideation: No - Past Medical History Cardiac Medical History: Reports: Hx Hypercholesterolemia, Hx Hypertension Pulmonary Medical History: Reports: Hx COPD Endocrine Medical History: Reports: Hx Diabetes Mellitus Type 2 - "borderline" Renal/ Medical History: Reports: Hx Ovarian Cysts Malignancy Medical History: Reports: Hx Cervical Cancer - uterine cancer GI Medical History: Reports: Hx Gastroesophageal Reflux Disease Musculoskeletal Medical History: Reports Hx Arthritis - back, shoulders, and neck, Reports Hx Musculoskeletal Deformity - Chronic back pain arthritis and back shoulder or neck Psychiatric Medical History: Reports: Hx Bipolar Disorder, Hx Depression Traumatic Medical History: Reports: Hx Fractures Past Surgical History: Reports: Hx Section, Hx Gynecologic Surgery, Hx Hysterectomy, Hx Orthopedic Surgery - L shoulder, Hx Tubal Ligation - Immunizations Immunizations up to date: Yes Hx Diphtheria, Pertussis, Tetanus Vaccination: Yes Hx Pneumococcal Vaccination: 02/01/13 Review of Systems - Review of Systems Constitutional: denies: Chills, Fever Cardiovascular: denies: Chest pain, Palpitations Respiratory: denies: Cough, Short of breath -: Yes All other systems reviewed and negative Physical Exam - Vital signs Vitals: Temp Pulse Resp BP Pulse Ox 98.4 F 96 18 140/64 H 97 11/28/19 09:13 11/28/19 09:13 11/28/19 09:13 11/28/19 09:13 11/28/19 09:13 Interpretation: Normal - General General appearance: Appears well, Alert - HEENT Head: Normocephalic, Atraumatic Eyes: Normal Pupils: PERRL - Respiratory Respiratory status: No respiratory distress Chest status: Nontender Breath sounds: Normal Chest palpation: Normal - Cardiovascular Rhythm: Regular Heart sounds: Normal auscultation Murmur: No - Abdominal Inspection: Normal Distension: No distension Bowel sounds: Normal Tenderness: Nontender Organomegaly: No organomegaly - Back Back: Tender - Diffuse tenderness to palpation of the lumbar and lower thoracic spine. Also primary lan administrator he was in house I did have them run downstairs she got here and transferred here also for - Extremities General upper extremity: Normal inspection, Nontender, Normal color, Normal ROM, Normal temperature General lower extremity: Normal inspection, Nontender, Normal color, Normal ROM, Normal temperature, Normal weight bearing. No: Asher's sign - Neurological Neuro grossly intact: Yes Cognition: Normal Orientation: AAOx4 [place] Coma Scale Eye Opening: Spontaneous Tim Coma Scale Verbal: Oriented Tim Coma Scale Motor: Obeys Commands Tim Coma Scale Total: 15 Speech: Normal Motor strength normal: LUE, RUE, LLE, RLE Sensory: Normal - Psychological Associated symptoms: Normal affect, Normal mood - Skin Skin Temperature: Warm Skin Moisture: Dry Skin Color: Normal Course - Re-evaluation Re-evalutation: 11/28/19 10:36 Patient presents with chronic back pain. She has no evidence of any new deficit. No evidence of any neurological deficits. No evidence of any type of significant spinal cord or peripheral nerve compression. She has no cauda equina symptoms. No fevers. Patient will be discharged home with pain medication. She does have an appointment with her primary care doctor this week and she will be urged to keep this appointment. - Vital Signs Vital signs: Temp Pulse Resp BP Pulse Ox 98.4 F 96 18 140/64 H 97 11/28/19 09:16 11/28/19 09:13 11/28/19 09:13 11/28/19 09:13 11/28/19 09:13 - Diagnostic Test Radiology reviewed: Image reviewed, Reports reviewed Discharge - Discharge Clinical Impression: Low back pain Qualifiers: Chronicity: acute Back pain laterality: midline Sciatica presence: without sciatica Qualified Code(s): M54.5 - Low back pain Condition: Stable Disposition: HOME, SELF-CARE Instructions: Low Back Pain ([facility]) Additional Instructions: Please keep your appointment with Dr. Toledo this week as scheduled Prescriptions: Acetaminophen with Codeine [Tylenol #3 Tablet] 1 each PO Q6HP PRN 3 Days #12 tablet PRN Reason: Referrals: ROSLYN TOLEDO MD [Primary Care Provider] - Follow up tomorrow
== END 2019-11-28 11:00 | disposition home or self-care (01) ==
LOC: ER 09:09
DX: M54.5 Low back pain (principal); G89.29 Other chronic pain; M48.54XA Collapsed vertebra, not elsewhere classified, thoracic region, initial encounter for fracture; J44.9 Chronic obstructive pulmonary disease, unspecified; I10 Essential (primary) hypertension; R73.03 Prediabetes; Z79.84 Long term (current) use of oral hypoglycemic drugs; Z87.891 Personal history of nicotine dependence
CPT/HCPCS: 99283; 72100; A9270

== ENCOUNTER 2019-12-04 07:43 | Emergency (ER) | payer MEDICARE, MEDICAID ==
[2019-12-04] MEDS ORDERED: TRAMADOL HCL 50 MG TABLET PO ONE (08:39)
--- NOTE | 2019-12-04 08:56 | ER Document Report ---
Entered by KIMBERLY HARGROVE SCRIBE 12/04/19 0837 Acting as scribe for:DERECK VILLASEÑOR MD ED Neck/Back Problem - General Chief Complaint: Back Pain Stated Complaint: BACK PAIN Time Seen by Provider: 12/04/19 08:25 Primary Care Provider: ROSLYN TOLEDO MD [Primary Care Provider] - 12/09/19 Information source: Patient Notes: This 79 year old female patient presents to the emergency department today with complaints of chronic low back pain. Patient complains of 3 falls although her last fall was 3 months ago. Patient filled a prescription for #120 Tylenol with codeine (30 day supply) on 11/03/19, she was admitted here getting pain medication from 11/22-11/24, and she also filled another prescription for #12 Tylenol with codeine (3 days supply) on 11/27 meaning she should have about a week left of this medication. Patient lives alone and has no concern that someone could be stealing her mediation. Patient does endorse that she takes more than prescribed sometimes due to pain. Patient requesting a prescription for Tramadol to hold her over until her appointment with doctor Tatum on 12/08. She adds that "the tramadol works better than the Tylenol 3 for me". TRAVEL OUTSIDE OF THE [place] IN LAST 30 DAYS: No - Related Data Allergies/Adverse Reactions: No Known Allergies Allergy (Verified 11/28/19 09:16) Past Medical History - General Information source: Patient - Social History Smoking Status: Former Smoker Frequency of alcohol use: None Drug Abuse: None Lives with: Family Family History: Reviewed & Not Pertinent - Past Medical History Cardiac Medical History: Reports: Hx Hypercholesterolemia, Hx Hypertension Pulmonary Medical History: Reports: Hx COPD Endocrine Medical History: Reports: Hx Diabetes Mellitus Type 2 - "borderline" Renal/ Medical History: Reports: Hx Ovarian Cysts Malignancy Medical History: Reports: Hx Cervical Cancer - uterine cancer GI Medical History: Reports: Hx Gastroesophageal Reflux Disease Musculoskeletal Medical History: Reports Hx Arthritis - back, shoulders, and neck, Reports Other - Chronic back pain Psychiatric Medical History: Reports: Hx Bipolar Disorder, Hx Depression Traumatic Medical History: Reports: Hx Fractures Past Surgical History: Reports: Hx Section, Hx Hysterectomy, Hx Orthopedic Surgery - L shoulder, Hx Tubal Ligation - Immunizations Immunizations up to date: Yes Hx Diphtheria, Pertussis, Tetanus Vaccination: Yes Hx Pneumococcal Vaccination: 02/01/13 Review of Systems - Review of Systems Constitutional: No symptoms reported EENT: No symptoms reported Cardiovascular: No symptoms reported Respiratory: No symptoms reported Gastrointestinal: No symptoms reported Genitourinary: No symptoms reported Female Genitourinary: No symptoms reported Musculoskeletal: See HPI, Back pain Skin: No symptoms reported Hematologic/Lymphatic: No symptoms reported Neurological/Psychological: No symptoms reported -: Yes All other systems reviewed and negative Physical Exam - Vital signs Vitals: Temp Pulse Resp BP Pulse Ox 99.4 F 90 17 131/78 H 97 12/04/19 07:47 12/04/19 07:47 12/04/19 07:47 12/04/19 07:47 12/04/19 07:47 - General General appearance: Appears well, Alert In distress: None - HEENT Head: Normocephalic, Atraumatic Eyes: Normal Pupils: PERRL - Respiratory Respiratory status: No respiratory distress Breath sounds: Normal - Cardiovascular Rhythm: Regular Heart sounds: Normal auscultation Murmur: No - Abdominal Inspection: Normal Bowel sounds: Normal Tenderness: Nontender - Back Back: Tender - Tender to palpate the lumbar back region on either side of the spinous processes, but is not really tender over the L-spine itself. - Extremities General upper extremity: Normal inspection General lower extremity: Normal inspection - Neurological Neuro grossly intact: Yes - Psychological Associated symptoms: Normal affect, Normal mood - Skin Skin Temperature: Warm Skin Moisture: Dry Skin Color: Normal Course - Vital Signs Vital signs: Temp Pulse Resp BP Pulse Ox 97.4 F 84 16 153/77 H 100 12/04/19 08:55 12/04/19 08:55 12/04/19 08:55 12/04/19 08:55 12/04/19 08:55 Discharge - Discharge Clinical Impression: Chronic low back pain Qualifiers: Back pain laterality: bilateral Sciatica presence: without sciatica Qualified Code(s): M54.5 - Low back pain; G89.29 - Other chronic pain Condition: Stable Disposition: HOME, SELF-CARE Additional Instructions: Your back pain today does not appear to be any different from what you suffer on a regular basis. You should still have over a week supply of the Tylenol with codeine, although you report that it is now gone. You will be prescribed tramadol to take until you can see Dr. Toledo this week. RETURN TO THE EMERGENCY ROOM IF ANY NEW OR WORSENING SYMPTOMS. Prescriptions: Tramadol HCl [Ultram 50 mg Tablet] 50 mg PO ASDIR PRN #20 tablet PRN Reason: Referrals: ROSLYN TOLEDO MD [Primary Care Provider] - 12/09/19 I personally performed the services described in the documentation, reviewed and edited the documentation which was dictated to the scribe in my presence, and it accurately records my words and actions.
[2019-12-04 09:02] VITALS: BP 153/77
== END 2019-12-04 08:59 | disposition home or self-care (01) ==
LOC: ER 07:43
DX: G89.29 Other chronic pain (principal); M54.5 Low back pain; Z91.14 Patient's other noncompliance with medication regimen; I10 Essential (primary) hypertension; E11.9 Type 2 diabetes mellitus without complications; Z87.891 Personal history of nicotine dependence; Z79.891 Long term (current) use of opiate analgesic
CPT/HCPCS: 99283; A9270

== ENCOUNTER 2019-12-27 09:44 | Observation (INO) | payer MEDICARE, MEDICAID ==
[2019-12-27] MEDS ORDERED: NORMAL SALINE 250 ML with FUROSEMIDE 250 MG IV PRN ×2 (11:05)
[2019-12-27] MEDS ORDERED: DEXTROSE 50%-WATER SYRINGE 12.5 GM/25 ML DOSE IV PRN (11:30)
[2019-12-27] MEDS ORDERED: GLUCAGON,HUMAN RECOMB 1 MG INJ IM PRN (11:30)
[2019-12-27] MEDS ORDERED: DEXTROSE 40% GEL 15 GM TUBE PO PRN (11:30)
[2019-12-27] MEDS ORDERED: DEXTROSE 40% GEL 15 GM TUBE X 2 PO PRN (11:30)
[2019-12-27] MEDS ORDERED: DEXTROSE 50%-WATER SYRINGE 25 GM/50 ML DOSE IV PRN (11:30)
[2019-12-27] MEDS ORDERED: ENOXAPARIN SODIUM INJ 40 MG/0.4 ML DISP.SYRIN SUBCUT SCH (12:00)
[2019-12-27 12:24] LABS: ABSOLUTE BASOPHILS # (AUTO) 0.1 10^3/uL (0.0-0.2); ABSOLUTE EOSINOPHILS # (AUTO) 0.2 10^3/uL (0.0-0.6); ABSOLUTE LYMPHOCYTES (AUTO) 2.1 10^3/uL (0.5-4.7); ABSOLUTE MONOCYTES (AUTO) 0.8 10^3/uL (0.1-1.4); ABSOLUTE NEUT (AUTO) 5.1 10^3/uL (1.7-8.2); EOSINOPHILS % (AUTO) 1.9 % (0-6); HEMATOCRIT 34.7 % (36.0-47.0); HEMOGLOBIN 11.4 g/dL (12.0-15.5); LYMPHOCYTES % (AUTO) 25.9 % (13-45); MEAN CORPUSCULAR HEMOGLOBIN 25.2 pg (27.0-33.4); MEAN CORPUSCULAR HGB CONC 32.8 g/dL (32.0-36.0); MEAN CORPUSCULAR VOLUME 77 fl (80-97); MONOCYTES % (AUTO) 9.5 % (3-13); PLATELET COUNT 380 10^3/uL (150-450); RED BLOOD COUNT 4.52 10^6/uL (3.72-5.28); RED CELL DISTRIBUTION WIDTH 17.5 % (11.5-14.0); SEGMENTED NEUTROPHILS % (AUTO) 61.7 % (42-78); TOTAL CELLS COUNTED % (AUTO) 100 %; WHITE BLOOD COUNT 8.2 10^3/uL (4.0-10.5)
[2019-12-27] MEDS: HYDROMORPHONE HCL INJ/PF 2 MG/ML AMPULE IV PRN ×3 (12:32→21:09)
[2019-12-27 12:38] LABS: ANION GAP 10 (5-19); BLOOD UREA NITROGEN 9 mg/dL (7-20); CALCIUM 9.4 mg/dL (8.4-10.2); CARBON DIOXIDE 24 mmol/L (22-30); CHLORIDE 103 mmol/L (98-107); GLUCOSE 82 mg/dL (75-110); POTASSIUM 4.2 mmol/L (3.6-5.0)
[2019-12-27] MEDS: INSULIN LISPRO 100 UNIT/ML 3 ML VIAL SUBCUT SCH ×2 (16:33→21:29)
--- NOTE | 2019-12-27 20:13 | PDOC H&P ---
History of Present Illness Admission Date/PCP: 12/27/19 09:44 ROSLYN TOLEDO MD History of Present Illness: ALANA ROMERO is a 79 year old female, She came to the office for evaluation of lower extremity edema.This is a recurrent problem,She was advised multiple times to use compression stockings.She was brought in to be treated with furosemide infusion.The lower extremity edema is related to the COPD , Past Medical History Cardiac Medical History: Reports: Hyperlipidema, Hypertension Pulmonary Medical History: Reports: Chronic Obstructive Pulmonary Disease (COPD) Endocrine Medical History: Reports: Diabetes Mellitus Type 2 - "borderline" Malignancy Medical History: Reports: Cervical Cancer - uterine cancer GI Medical History: Reports: Gastroesophageal Reflux Disease Musculoskeltal Medical History: Reports: Arthritis - back, shoulders, and neck Psychiatric Medical History: Reports: Bipolar Disorder, Depression Past Surgical History Past Surgical History: Reports: Section, Hysterectomy, Orthopedic Surgery - L shoulder, Tubal Ligation Social History Smoking Status: Never Smoker Frequency of Alcohol Use: None Hx Recreational Drug Use: No Drugs: None Hx Prescription Drug Abuse: No Family History Family History: Reviewed & Not Pertinent Parental Family History Reviewed: Yes Children Family History Reviewed: Yes Sibling(s) Family History Reviewed.: Yes Medication/Allergy Home Medications: Pramipexole Di-HCl [Pramipexole Dihydrochloride] 0.5 mg PO TID 01/13/19 Albuterol Sulfate [Ventolin Hfa 8 gm Mdi] 1 puff IH Q4HP PRN 11/23/19 Megestrol Acetate [Megace Rika 400 mg/10 ml Udcup] 10 ml PO BID 11/23/19 Umeclidinium Brm/Vilanterol Tr [Anoro Ellipta 62.5-25 Mcg INH] 1 puff IH DAILY 11/23/19 Dapagliflozin Propanediol [Farxiga] 10 mg PO DAILY #90 tablet 11/24/19 Acetaminophen with Codeine [Tylenol #3 Tablet] 1 each PO Q6HP PRN 3 Days #12 tablet 11/28/19 Acetaminophen [Tylenol 325 mg Tablet] 325 mg PO DAILYP PRN 12/12/19 Tramadol HCl [Ultram 50 mg Tablet] 50 mg PO Q6HP PRN 12/12/19 Allergies/Adverse Reactions: No Known Allergies Allergy (Verified 11/28/19 09:16) Review of Systems Constitutional: ABSENT: chills, fever(s), headache(s), weight gain, weight loss Eyes: ABSENT: visual disturbances Ears: ABSENT: hearing changes Cardiovascular: ABSENT: chest pain, dyspnea on exertion, edema, orthropnea, palpitations Respiratory: ABSENT: cough, hemoptysis Gastrointestinal: ABSENT: abdominal pain, constipation, diarrhea, hematemesis, hematochezia, nausea, vomiting Genitourinary: ABSENT: dysuria, hematuria Musculoskeletal: ABSENT: joint swelling Integumentary: ABSENT: rash, wounds Neurological: ABSENT: abnormal gait, abnormal speech, confusion, dizziness, focal weakness, syncope Psychiatric: ABSENT: anxiety, depression, homidical ideation, suicidal ideation Endocrine: ABSENT: cold intolerance, heat intolerance, menstrual abnormalities, polydipsia, polyuria Hematologic/Lymphatic: ABSENT: easy bleeding, easy bruising, lymphadenopathy Physical Exam Vital Signs: Temp Pulse Resp BP Pulse Ox 97.7 F 88 20 111/67 94 12/27/19 15:37 12/27/19 15:37 12/27/19 15:37 12/27/19 15:37 12/27/19 15:37 Intake & Output 12/26/19 12/27/19 12/28/19 06:59 06:59 06:59 Weight 76 kg General appearance: PRESENT: no acute distress Head exam: PRESENT: atraumatic, normocephalic Eye exam: PRESENT: PERRLA Ear exam: PRESENT: normal external ear exam Mouth exam: PRESENT: moist, tongue midline Neck exam: PRESENT: full ROM Respiratory exam: PRESENT: clear to auscultation isak Cardiovascular exam: PRESENT: RRR, +S1, +S2 Vascular exam: PRESENT: normal capillary refill GI/Abdominal exam: PRESENT: normal bowel sounds, soft Rectal exam: PRESENT: deferred Extremities exam: PRESENT: pedal edema Neurological exam: PRESENT: alert, CN II-XII grossly intact Psychiatric exam: PRESENT: appropriate affect, normal mood Skin exam: PRESENT: dry, intact, warm Results Laboratory Results: 12/27/19 11:20 12/27/19 11:20 12/27/19 12/27/19 11:20 11:20 WBC 8.2 RBC 4.52 Hgb 11.4 L Hct 34.7 L MCV 77 L MCH 25.2 L MCHC 32.8 RDW 17.5 H Plt Count 380 Seg Neutrophils % 61.7 Sodium 137.2 Potassium 4.2 Chloride 103 Carbon Dioxide 24 Anion Gap 10 BUN 9 Creatinine 0.63 Est GFR ( Amer) > 60 Glucose 82 Calcium 9.4 Assessment & Plan - Diagnosis (1) Bilateral lower extremity edema Is this a current diagnosis for this admission?: Yes Plan: She has severe bilateral lower extremity edema, she is admitted to be treated with intravenous furosemide, she was admitted for observation. - Time Time Spent: 50 to 70 Minutes Medications reviewed and adjusted accordingly: Yes Anticipated Discharge Disposition: Home, Self Care Anticipated Discharge Timeframe: within 24 hours - Inpatient Certification Based on my medical assessment, after consideration of the patient's comorbidities, presenting symptoms, or acuity I expect that the services needed warrant INPATIENT care.: Yes I certify that my determination is in accordance with my understanding of Medicare's requirements for reasonable and necessary INPATIENT services [42 CFR 412.3e].: Yes
[2019-12-28] MEDS: HYDROMORPHONE HCL INJ/PF 2 MG/ML AMPULE IV PRN ×3 (01:20→09:54)
[2019-12-28] MEDS: INSULIN LISPRO 100 UNIT/ML 3 ML VIAL SUBCUT SCH ×2 (08:50→12:09)
[2019-12-28] MEDS ORDERED: ENOXAPARIN SODIUM INJ 40 MG/0.4 ML DISP.SYRIN SUBCUT SCH (10:00)
[2019-12-28 12:18] VITALS: BP 102/61
--- NOTE | 2019-12-28 14:52 | PDOC DISCHARGE SUMMARY ---
Impression - Admit/DC Date/PCP Admission Date/Primary Care Provider: 12/27/19 09:44 ROSLYN TOLEDO MD Discharge Date: 12/28/19 - Discharge Diagnosis (1) Bilateral lower extremity edema Is this a current diagnosis for this admission?: Yes - Additional Information Discharge Diet: Cardiac, Diabetic Discharge Activity: Activity As Tolerated Referrals: ROSLYN TOLEDO MD [Primary Care Provider] - 01/04/20 9:30 am Home Medications: RX: Pramipexole Di-HCl [Pramipexole Dihydrochloride] 0.5 mg PO TID 01/13/19 RX: Albuterol Sulfate [Ventolin Hfa 8 gm Mdi] 1 puff IH Q4HP PRN 11/23/19 RX: Megestrol Acetate [Megace Rika 400 mg/10 ml Udcup] 10 ml PO BID 11/23/19 RX: Umeclidinium Brm/Vilanterol Tr [Anoro Ellipta 62.5-25 Mcg INH] 1 puff IH DAILY 11/23/19 RX: Dapagliflozin Propanediol [Farxiga] 10 mg PO DAILY #90 tablet 11/24/19 RX: Acetaminophen with Codeine [Tylenol #3 Tablet] 1 each PO Q6HP PRN 3 Days #12 tablet 11/28/19 RX: Acetaminophen [Tylenol 325 mg Tablet] 325 mg PO DAILYP PRN 12/12/19 RX: Tramadol HCl [Ultram 50 mg Tablet] 50 mg PO Q6HP PRN 12/12/19 History of Present Illiness History of Present Illness: ALANA ROMERO is a 79 year old female, She came to the office for evaluation of lower extremity edema.This is a recurrent problem,She was advised multiple times to use compression stockings.She was brought in to be treated with furosemide infusion.The lower extremity edema is related to the COPD , Hospital Course Hospital Course: Patient was admitted for the management of lower extremity edema, bilaterally, she was treated with furosemide infusion with complete resolution of the symptoms advised to use compression stockings Physical Exam Vital Signs: Temp Pulse Resp BP Pulse Ox 98.2 F 90 13 102/61 91 L 12/28/19 13:22 12/28/19 13:22 12/28/19 13:22 12/28/19 13:22 12/28/19 13:22 Intake & Output 12/27/19 12/28/19 12/29/19 06:59 06:59 06:59 Intake Total 780 247 Balance 780 247 Weight 76 kg General appearance: PRESENT: no acute distress Eye exam: PRESENT: PERRLA Respiratory exam: PRESENT: clear to auscultation isak Cardiovascular exam: PRESENT: +S1, +S2 GI/Abdominal exam: PRESENT: soft Neurological exam: PRESENT: alert Results Laboratory Results: WBC 8.2 10^3/uL (4.0-10.5) 12/27/19 11:20 RBC 4.52 10^6/uL (3.72-5.28) 12/27/19 11:20 Hgb 11.4 g/dL (12.0-15.5) L 12/27/19 11:20 Hct 34.7 % (36.0-47.0) L 12/27/19 11:20 MCV 77 fl (80-97) L 12/27/19 11:20 MCH 25.2 pg (27.0-33.4) L 12/27/19 11:20 MCHC 32.8 g/dL (32.0-36.0) 12/27/19 11:20 RDW 17.5 % (11.5-14.0) H 12/27/19 11:20 Plt Count 380 10^3/uL (150-450) 12/27/19 11:20 Lymph % (Auto) 25.9 % (13-45) 12/27/19 11:20 [place] % (Auto) 9.5 % (3-13) 12/27/19 11:20 Eos % (Auto) 1.9 % (0-6) 12/27/19 11:20 Baso % (Auto) 1.0 % (0-2) 12/27/19 11:20 Absolute Neuts (auto) 5.1 10^3/uL (1.7-8.2) 12/27/19 11:20 Absolute Lymphs (auto) 2.1 10^3/uL (0.5-4.7) 12/27/19 11:20 Absolute Monos (auto) 0.8 10^3/uL (0.1-1.4) 12/27/19 11:20 Absolute Eos (auto) 0.2 10^3/uL (0.0-0.6) 12/27/19 11:20 Absolute Basos (auto) 0.1 10^3/uL (0.0-0.2) 12/27/19 11:20 Seg Neutrophils % 61.7 % (42-78) 12/27/19 11:20 Sodium 137.2 mmol/L (137-145) 12/27/19 11:20 Potassium 4.2 mmol/L (3.6-5.0) 12/27/19 11:20 Chloride 103 mmol/L (98-107) 12/27/19 11:20 Carbon Dioxide 24 mmol/L (22-30) 12/27/19 11:20 Anion Gap 10 (5-19) 12/27/19 11:20 BUN 9 mg/dL (7-20) 12/27/19 11:20 Creatinine 0.63 mg/dL (0.52-1.25) 12/27/19 11:20 Est GFR ( Amer) > 60 (>60) 12/27/19 11:20 Est GFR (MDRD) Non-Af > 60 (>60) 12/27/19 11:20 Glucose 82 mg/dL (75-110) 12/27/19 11:20 POC Glucose 129 mg/dL (70-110) H 12/28/19 11:55 Calcium 9.4 mg/dL (8.4-10.2) 12/27/19 11:20 Stroke Is this a Stroke Patient?: No Acute Heart Failure - Is this a Heart Failure Patient?: No
[2019-12-28] MEDS ORDERED: PHARMACY COMMUNICATION ORDER MC SCH (18:00)
== END 2019-12-28 13:49 | disposition home health service (06) ==
LOC: 3W 09:44
PROVIDERS: ADMIT Internal Medicine; ATTEND Internal Medicine
DX: R60.0 Localized edema (principal); J44.9 Chronic obstructive pulmonary disease, unspecified; E11.9 Type 2 diabetes mellitus without complications; M13.812 Other specified arthritis, left shoulder; M13.811 Other specified arthritis, right shoulder; M13.88 Other specified arthritis, other site; Z85.42 Personal history of malignant neoplasm of other parts of uterus; Z79.84 Long term (current) use of oral hypoglycemic drugs; Z79.899 Other long term (current) drug therapy
CPT/HCPCS: 36415; 82962 ×2; 85025; 80048; G0378 ×2; G0379; J1940; A9270; J1650; J1170 ×2; J7050; J1815

== ENCOUNTER 2019-12-30 08:02 | Emergency (ER) | payer MEDICARE, MEDICAID ==
--- NOTE | 2019-12-30 10:24 | ER Document Report ---
ED General - General Chief Complaint: Low Back Pain Stated Complaint: BACK PAIN Time Seen by Provider: 12/30/19 10:10 Primary Care Provider: ROSLYN TOLEDO MD [Primary Care Provider] - Follow up as needed TRAVEL OUTSIDE OF THE [place] IN LAST 30 DAYS: No - HPI Notes: Chief complaint: Arthritis pain History of present illness: 79-year-old female followed by Dr. Toledo with history of severe generalized osteoarthritis, chronic venous insufficiency of lower extremities and diabetes mellitus type 2 who was discharged from the hospital here 2 days ago after her primary care physician had been treating her with IV diuretics for her swelling. Her osteoarthritis is relatively severe. Here today complaining of low back pain and pain in multiple joints symmetrically. There is no swelling or redness present. She denies any new fall or trauma. She says she was given tramadol for pain while she was in the hospital but was not given a prescription for the medication when she went home. She basically comes in today saying she wants me to write her prescription for this medicine. She indicates that she previously discussed this with Dr. Toledo and he said he could not prescribe this for her long-term. No other new complaints reported at this time. When I asked her what she currently takes for pain at home she says "nothing". I inquired as to why she is not taking Tylenol and she said "I do not have any" I explained to her that this is of course readily available [id number] and is extremely inexpensive and [id number]-[id number]. She says this "just does not work is good" and she feels that she must have tramadol. - Related Data Allergies/Adverse Reactions: No Known Allergies Allergy (Verified 11/28/19 09:16) Past Medical History - General Information source: Patient, [facility] Records - Social History Smoking Status: Never Smoker Frequency of alcohol use: None Drug Abuse: None Family History: Reviewed & Not Pertinent - Past Medical History Cardiac Medical History: Reports: Hx Hypercholesterolemia, Hx Hypertension Pulmonary Medical History: Reports: Hx COPD Endocrine Medical History: Reports: Hx Diabetes Mellitus Type 2 - "borderline" Renal/ Medical History: Reports: Hx Ovarian Cysts Malignancy Medical History: Reports: Hx Cervical Cancer - uterine cancer GI Medical History: Reports: Hx Gastroesophageal Reflux Disease Musculoskeletal Medical History: Reports Hx Arthritis - back, shoulders, and neck, Reports Hx Musculoskeletal Deformity - Chronic back pain arthritis and back shoulder or neck Psychiatric Medical History: Reports: Hx Bipolar Disorder, Hx Depression Traumatic Medical History: Reports: Hx Fractures Past Surgical History: Reports: Hx Section, Hx Gynecologic Surgery, Hx Hysterectomy, Hx Orthopedic Surgery - L shoulder, Hx Tubal Ligation - Immunizations Immunizations up to date: Yes Hx Diphtheria, Pertussis, Tetanus Vaccination: Yes Hx Pneumococcal Vaccination: 02/01/13 Review of Systems - Review of Systems Notes: Constitutional: Negative for fever. HENT: Negative for sore throat. Eyes: Negative for visual changes. Cardiovascular: Negative for chest pain. Respiratory: Negative for shortness of breath. Gastrointestinal: Negative for abdominal pain, vomiting or diarrhea. Genitourinary: Negative for dysuria. Musculoskeletal: As per HPI. Skin: Negative for rash. Neurological: Negative for headaches, weakness or numbness. 10 point ROS negative except as marked above and in HPI. Physical Exam - Vital signs Vitals: Temp Pulse Resp BP Pulse Ox 98.4 F 90 20 114/66 96 12/30/19 08:11 12/30/19 08:11 12/30/19 08:11 12/30/19 08:11 12/30/19 08:11 - Notes Notes: GENERAL: Elderly female appearing in no acute distress. SKIN: Good turgor no rashes. HEAD: Normocephalic atraumatic. EYES: PERRLA. EOMI. Conjunctivae and sclerae clear. EARS: CANALS AND TMS CLEAR. NOSE: CLEAR. MOUTH: Moist mucosa. Edentulous. No stridor or edema. No drooling. NECK: Supple. No masses or thyromegaly. No adenopathy. Carotids 2+ without bruits. No JVD. BACK: Symmetrical with mild tenderness of lumbar area. CHEST: Respirations unlabored. Breath sounds clear and symmetrical. HEART: Regular rhythm. No murmur gallop or rub. ABDOMEN: Soft nontender without masses, organomegaly or rebound. Bowel sounds normally active. No bruits. GENITALIA: Deferred. EXTREMITIES: Patient is wearing Velcro splints on both wrists. She has moderate degenerative changes of intra-phalangeal joints of both hands present. 1+ bilateral ankle edema. No calf tenderness. Cap refill less than 1.5 seconds. Dorsalis pedis and posterior tibial pulses 3+ and symmetrical. NEUROLOGICAL: GCS 15. Alert and oriented x3. Normal gait. Fluent speech. Cranial nerves II through XII intact. Sensorimotor and cerebellar normal. Normal tone. PSYCHIATRIC: Appropriate affect. Course - Re-evaluation Re-evalutation: 12/30/19 10:26 I have reviewed her prior records in detail. We note that she had plain films of her lumbar spine 1 month ago and this demonstrated an old compression fracture of T11 and advanced degenerative changes with narrowing of multiple disc interspaces. This was substantially unchanged from earlier films last year. We also note that she had a CT scan of the lumbar spine at that time with similar findings. 12/30/19 10:27 I have given the patient some oral Tylenol at this time and have placed a call to her attending Dr. Toledo. 12/30/19 10:56 Case has been discussed by telephone with Dr. Toledo who indicates the patient already has 2 refills for Tylenol with codeine available at her pharmacy. He did not want to treat her with any additional tramadol. Patient has been advised of this discussion and will go to her pharmacy to olive picker medication and follow-up with Dr. Toledo as previously scheduled. Findings, clinical impression and plan of treatment have been discussed with p atient/family. Understanding of current findings and recommendations has been acknowledged by them and there is agreement regarding disposition and follow-up. - Vital Signs Vital signs: Temp Pulse Resp BP Pulse Ox 98.4 F 90 20 114/66 96 12/30/19 08:11 12/30/19 08:11 12/30/19 08:11 12/30/19 08:11 12/30/19 08:11 Discharge - Discharge Clinical Impression: Osteoarthritis Condition: Stable Disposition: HOME, SELF-CARE Additional Instructions: Take your medications as previously prescribed and follow-up with your doctor as previously scheduled. You may return to the emergency department as needed for new or worsening symptoms. Referrals: ROSLYN TOLEDO MD [Primary Care Provider] - Follow up as needed
[2019-12-30 11:11] VITALS: BP 120/72
== END 2019-12-30 11:09 | disposition home or self-care (01) ==
LOC: ER 08:02
DX: M19.90 Unspecified osteoarthritis, unspecified site (principal); M54.5 Low back pain; M79.89 Other specified soft tissue disorders; R60.0 Localized edema; Z79.899 Other long term (current) drug therapy; E11.9 Type 2 diabetes mellitus without complications; I10 Essential (primary) hypertension; J44.9 Chronic obstructive pulmonary disease, unspecified
CPT/HCPCS: 99282

== ENCOUNTER 2020-01-02 08:17 | Emergency (ER) | payer MEDICARE, MEDICAID ==
[2020-01-02 08:22] VITALS: BP 136/75
[2020-01-02] MEDS ORDERED: MORPHINE SULFATE 10 MG/ML INJ IV ONE ×2 (09:39→13:41)
[2020-01-02] MEDS ORDERED: MORPHINE SULFATE 10 MG/ML INJ IM ONE (10:28)
--- NOTE | 2020-01-02 11:37 | RADIOLOGY REPORT (SQ) ---
EXAM DESCRIPTION: L SPINE 2 VIEWS IMAGES COMPLETED DATE/TIME: 01/02/2020 10:56 am REASON FOR STUDY: pain COMPARISON: 11/28/2019 NUMBER OF VIEWS: Two views. TECHNIQUE: AP and lateral radiographic images acquired of the lumbar spine. LIMITATIONS: None. FINDINGS: MINERALIZATION: Osteopenia. SEGMENTATION: 5 [id number]-vid-[id number] lumbar vertebral bodies ALIGNMENT: Levoconvex curvature of the lumbar spine. VERTEBRAE: Chronic compression deformity of the T11 vertebral body, similar to prior. No new barbara koki deformities. Multilevel endplate change. DISCS: Multilevel disc height loss throughout the lumbar spine greatest at L2-3 and L5-S1. POSTERIOR ELEMENTS: No definite pars defect. Multilevel lumbar facet arthropathy. HARDWARE: None in the spine. PARASPINAL SOFT TISSUES: Vascular calcifications. PELVIS: No acute fracture. OTHER: Questionable rib fracture of the 10th right posterior rib. IMPRESSION: 1. No evidence of acute bony abnormality of the lumbar spine. 2. Stable T11 compression fracture. 3. Levoconvex lumbar curvature with multilevel degenerative disc disease and facet arthropathy, german lar prior. 4. Questionable rib fracture of the 10th right posterior rib. Recommend correlation with daryn pena. TECHNICAL DOCUMENTATION: JOB ID: [id number] 2010 [employer]- All Rights Reserved Reading location - IP/workstation name: [email or web address]
--- NOTE | 2020-01-02 13:25 | ER Document Report ---
ED General - General Chief Complaint: Back Pain Stated Complaint: BACK PAIN Time Seen by Provider: 01/02/20 09:33 Primary Care Provider: ROSLYN TOLEDO MD [Primary Care Provider] - Follow up as needed Information source: Patient TRAVEL OUTSIDE OF THE [place] IN LAST 30 DAYS: No - HPI Notes: Patient presents with severe low back pain. She states she has chronic pain in the low back and takes pain medication for it. She states she ran of her pain medication 3 days ago. She denies any new falls or trauma. The pain does radiate down into both sides of the low back. It is severe and constant. Is worse with movement and better with rest. She denies any new symptoms with urine or stool. No new numbness or tingling. - Related Data Allergies/Adverse Reactions: No Known Allergies Allergy (Verified 11/28/19 09:16) Past Medical History - General Information source: Patient - Social History Smoking Status: Never Smoker Frequency of alcohol use: None Drug Abuse: None Family History: Reviewed & Not Pertinent - Past Medical History Cardiac Medical History: Reports: Hx Hypercholesterolemia, Hx Hypertension Pulmonary Medical History: Reports: Hx COPD Endocrine Medical History: Reports: Hx Diabetes Mellitus Type 2 - "borderline" Renal/ Medical History: Reports: Hx Ovarian Cysts Malignancy Medical History: Reports: Hx Cervical Cancer - uterine cancer GI Medical History: Reports: Hx Gastroesophageal Reflux Disease Musculoskeletal Medical History: Reports Hx Arthritis - back, shoulders, and neck, Reports Hx Musculoskeletal Deformity - Chronic back pain arthritis and back shoulder or neck Psychiatric Medical History: Reports: Hx Bipolar Disorder, Hx Depression Traumatic Medical History: Reports: Hx Fractures Past Surgical History: Reports: Hx Section, Hx Gynecologic Surgery, Hx Hysterectomy, Hx Orthopedic Surgery - L shoulder, Hx Tubal Ligation - Immunizations Immunizations up to date: Yes Hx Diphtheria, Pertussis, Tetanus Vaccination: Yes Hx Pneumococcal Vaccination: 02/01/13 Review of Systems - Review of Systems Constitutional: denies: Chills, Fever Cardiovascular: denies: Chest pain, Palpitations Respiratory: denies: Cough, Short of breath -: Yes All other systems reviewed and negative Physical Exam - Vital signs Vitals: Temp Pulse Resp BP Pulse Ox 98.5 F 96 20 136/75 H 96 01/02/20 08:21 01/02/20 08:21 01/02/20 08:21 01/02/20 08:21 01/02/20 08:21 Interpretation: Normal - General General appearance: Appears well, Alert - HEENT Head: Normocephalic, Atraumatic Eyes: Normal Pupils: PERRL - Respiratory Respiratory status: No respiratory distress Chest status: Nontender Breath sounds: Normal Chest palpation: Normal - Cardiovascular Rhythm: Regular Heart sounds: Normal auscultation Murmur: No - Abdominal Inspection: Normal Distension: No distension Bowel sounds: Normal Tenderness: Nontender Organomegaly: No organomegaly - Back Back: Normal, Tender, Vertebra tenderness - Extremities General upper extremity: Normal inspection, Nontender, Normal color, Normal ROM, Normal temperature General lower extremity: Normal inspection, Nontender, Normal color, Normal ROM, Normal temperature, Normal weight bearing. No: Asher's sign - Neurological Neuro grossly intact: Yes Cognition: Normal Orientation: AAOx4 Tim Coma Scale Eye Opening: Spontaneous Tim Coma Scale Verbal: Oriented Tim Coma Scale Motor: Obeys Commands Tim Coma Scale Total: 15 Speech: Normal Motor strength normal: LUE, RUE, LLE, RLE Sensory: Normal - Psychological Associated symptoms: Normal affect, Normal mood - Skin Skin Temperature: Warm Skin Moisture: Dry Skin Color: Normal Course - Re-evaluation Re-evalutation: 01/02/20 13:20 X-rays are unchanged. Patient feels better after pain medication. It seems reasonable at this time the patient follow-up as an outpatient. - Vital Signs Vital signs: Temp Pulse Resp BP Pulse Ox 98.5 F 96 20 136/75 H 96 01/02/20 08:21 01/02/20 08:21 01/02/20 08:21 01/02/20 08:21 01/02/20 08:21 - Diagnostic Test Radiology reviewed: Image reviewed, Reports reviewed Discharge - Discharge Clinical Impression: Bipolar 1 disorder, depressed, Acute exacerbation of chronic low back pain Condition: Stable Disposition: HOME, SELF-CARE Instructions: Low Back Pain ([facility]), Oral Narcotic Medication ([facility]) Additional Instructions: call your primary doctor as soon as possible to arrange follow up Prescriptions: Tramadol HCl [Ultram] 50 mg PO Q6 PRN 3 Days #12 tablet PRN Reason: Referrals: ROSLYN TOLEDO MD [Primary Care Provider] - Follow up tomorrow
== END 2020-01-02 13:50 | disposition home or self-care (01) ==
LOC: ER 08:17
DX: M51.36 Other intervertebral disc degeneration, lumbar region (principal); M54.5 Low back pain; G89.29 Other chronic pain; F31.9 Bipolar disorder, unspecified; I10 Essential (primary) hypertension; J44.9 Chronic obstructive pulmonary disease, unspecified; E11.9 Type 2 diabetes mellitus without complications
CPT/HCPCS: 99284; 96372; 72100; J2270

== ENCOUNTER 2020-01-06 16:11 | Emergency (ER) | payer MEDICARE, MEDICAID ==
--- NOTE | 2020-01-06 16:26 | ER Document Report ---
ED Medical Screen (RME) - General Chief Complaint: Swelling of Lower Extremity Stated Complaint: FEET/LEG PAIN/SWELLING Time Seen by Provider: 01/06/20 16:17 Primary Care Provider: ROSLYN TOLEDO MD [Primary Care Provider] - Follow up as needed Mode of Arrival: Wheelchair Information source: Patient Notes: 79-year-old female presented to ED for complaint of feet and hands swelling headache back pain. She states she had a lot of very bad swelling a couple days ago and Dr. Toledo gave her some dark pill and she was much better. She states she went to Dr. Toledo's office today and he told her to come to the emergency room she he had a bed waiting for her and she would be admitted. She is very upset that there is not a bed ready and waiting for her to get into. He does have 3+ pitting edema bilaterally to both feet and ankles. I have greeted and performed a rapid initial assessment of this patient. A comprehensive ED assessment and evaluation of the patient, analysis of test results and completion of medical decision making process will be conducted by an additional ED providers. TRAVEL OUTSIDE OF THE [place] IN LAST 30 DAYS: No - Related Data Allergies/Adverse Reactions: No Known Allergies Allergy (Verified 11/28/19 09:16) Past Medical History - Past Medical History Cardiac Medical History: Reports: Hx Hypercholesterolemia, Hx Hypertension Pulmonary Medical History: Reports: Hx COPD Endocrine Medical History: Reports: Hx Diabetes Mellitus Type 2 - "borderline" Renal/ Medical History: Reports: Hx Ovarian Cysts Malignancy Medical History: Reports: Hx Cervical Cancer - uterine cancer GI Medical History: Reports: Hx Gastroesophageal Reflux Disease Musculoskeltal Medical History: Reports Hx Arthritis - back, shoulders, and neck, Reports Hx Musculoskeletal Deformity - Chronic back pain arthritis and back shoulder or neck Psychiatric Medical History: Reports: Hx Bipolar Disorder, Hx Depression Traumatic Medical History: Reports: Hx Fractures Past Surgical History: Reports: Hx Section, Hx Gynecologic Surgery, Hx Hysterectomy, Hx Orthopedic Surgery - L shoulder, Hx Tubal Ligation - Immunizations Immunizations up to date: Yes Hx Diphtheria, Pertussis, Tetanus Vaccination: Yes Physical Exam - Vital signs Vitals: Temp Pulse Resp BP Pulse Ox 97.7 F 102 H 24 H 153/81 H 97 01/06/20 16:17 01/06/20 16:17 01/06/20 16:17 01/06/20 16:17 01/06/20 16:17 Course - Vital Signs Vital signs: Temp Pulse Resp BP Pulse Ox 97.7 F 102 H 24 H 153/81 H 97 01/06/20 16:17 01/06/20 16:17 01/06/20 16:17 01/06/20 16:17 01/06/20 16:17 Doctor's Discharge - Discharge Referrals: ROSLYN TOLEDO MD [Primary Care Provider] - Follow up as needed
--- NOTE | 2020-01-06 18:19 | RADIOLOGY REPORT (SQ) ---
EXAM DESCRIPTION: CHEST 2 VIEWS IMAGES COMPLETED DATE/TIME: 01/06/2020 4:37 pm REASON FOR STUDY: pedal edema COMPARISON: 11/23/2019 TECHNIQUE: Frontal and lateral radiographic views of the chest acquired. NUMBER OF VIEWS: Two view. LIMITATIONS: None. FINDINGS: LUNGS AND PLEURA: Areas of linear subsegmental atelectasis in the bases. No suggestion of overt pneumonia. No pneumothorax. MEDIASTINUM AND HILAR STRUCTURES: No masses or contour abnormalities. HEART AND VASCULAR STRUCTURES: Stable heart size, normal. Very slight vascular congestion with no ot her evidence of edema. BONES: Osteopenic. HARDWARE: Right IJ line has been removed. OTHER: No other significant finding. IMPRESSION: As above. Areas of subsegmental volume loss and minimal vascular congestion. TECHNICAL DOCUMENTATION: JOB ID: [id number] 2010 [employer]- All Rights Reserved Reading location - IP/workstation name: [email or web address]
[2020-01-06 19:21] LABS: APPEARANCE,URINE CLEAR; BILIRUBIN,URINE NEGATIVE (NEGATIVE); COLOR,URINE YELLOW; GLUCOSE, URINE NEGATIVE (NEGATIVE); KETONES,URINE NEGATIVE (NEGATIVE); LEUKOCYTE ESTERASE,URINE NEGATIVE (NEGATIVE); NITRITE,URINE NEGATIVE (NEGATIVE); PROTEIN,URINE 30 mg/dL (NEGATIVE); URINE SPECIFIC GRAVITY 1.016; UROBILINOGEN,URINE NEGATIVE mg/dL (<2.0)
[2020-01-06 19:57] LABS: ALBUMIN 4.3 g/dL (3.5-5.0); ALKALINE PHOSPHATASE 70 U/L (38-126); ANION GAP 10 (5-19); ASPARTATE AMINO TRANSFERASE 24 U/L (14-36); BILIRUBIN,DIRECT 0.3 mg/dL (0.0-0.4); BILIRUBIN,TOTAL 0.5 mg/dL (0.2-1.3); BLOOD UREA NITROGEN 8 mg/dL (7-20); CALCIUM 9.6 mg/dL (8.4-10.2); CARBON DIOXIDE 22 mmol/L (22-30); CHLORIDE 106 mmol/L (98-107); GLUCOSE 98 mg/dL (75-110); POTASSIUM 3.8 mmol/L (3.6-5.0); TOTAL PROTEIN 7.8 g/dL (6.3-8.2)
[2020-01-06 20:06] LABS: ABSOLUTE EOSINOPHILS # (AUTO) 0.2 10^3/uL (0.0-0.6); ABSOLUTE LYMPHOCYTES (AUTO) 2.7 10^3/uL (0.5-4.7); ABSOLUTE MONOCYTES (AUTO) 0.7 10^3/uL (0.1-1.4); ABSOLUTE NEUT (AUTO) 7.2 10^3/uL (1.7-8.2); BASOPHILS % (AUTO) 0.4 % (0-2); EOSINOPHILS % (AUTO) 1.7 % (0-6); HEMATOCRIT 36.4 % (36.0-47.0); HEMOGLOBIN 11.9 g/dL (12.0-15.5); MEAN CORPUSCULAR HGB CONC 32.6 g/dL (32.0-36.0); MEAN CORPUSCULAR VOLUME 77 fl (80-97); MONOCYTES % (AUTO) 6.7 % (3-13); RED BLOOD COUNT 4.76 10^6/uL (3.72-5.28); RED CELL DISTRIBUTION WIDTH 17.2 % (11.5-14.0); SEGMENTED NEUTROPHILS % (AUTO) 66.2 % (42-78); TOTAL CELLS COUNTED % (AUTO) 100 %; WHITE BLOOD COUNT 10.8 10^3/uL (4.0-10.5)
[2020-01-06 20:09] LABS: NT PRO BNP 244 pg/mL (<450)
[2020-01-06 20:10] LABS: TROPONIN I < 0.012 ng/mL
[2020-01-06 20:19] LABS: PLATELET COUNT 302 10^3/uL (150-450)
[2020-01-06 21:02] VITALS: BP 150/78
[2020-01-06] MEDS ORDERED: KETOROLAC TROMETHAMINE 60 MG/2 ML SDV IM ONE (21:30)
--- NOTE | 2020-01-06 21:36 | ER Document Report ---
ED General - General Chief Complaint: Swelling of Lower Extremity Stated Complaint: FEET/LEG PAIN/SWELLING Time Seen by Provider: 01/06/20 16:17 Primary Care Provider: ROSLYN TOLEDO MD [Primary Care Provider] - Follow up as needed Mode of Arrival: Wheelchair Notes: ED 1-year-old woman presents to the emergency department with a complaint of swelling in her legs and feet along with a history of chronic back problems. The patient has a long history of arthritis of the back he has been seen in the emergency department several occasions for back pain. She is also been treated with diuretics for her peripheral edema, has not been wearing her compression stockings. She is requesting something for pain. The patient states that she was seen in Dr. Toledo's office today and was told that she would come in for treatment in the hospital. TRAVEL OUTSIDE OF THE [place] IN LAST 30 DAYS: No - Related Data Allergies/Adverse Reactions: No Known Allergies Allergy (Verified 11/28/19 09:16) Past Medical History - General Information source: Patient - Social History Smoking Status: Unknown if Ever Smoked Family History: Reviewed & Not Pertinent Patient has homicidal ideation: No - Past Medical History Cardiac Medical History: Reports: Hx Hypercholesterolemia, Hx Hypertension Pulmonary Medical History: Reports: Hx COPD Endocrine Medical History: Reports: Hx Diabetes Mellitus Type 2 - "borderline" Renal/ Medical History: Reports: Hx Ovarian Cysts Malignancy Medical History: Reports: Hx Cervical Cancer - uterine cancer GI Medical History: Reports: Hx Gastroesophageal Reflux Disease Musculoskeletal Medical History: Reports Hx Arthritis - back, shoulders, and nec k, Reports Hx Musculoskeletal Deformity - Chronic back pain arthritis and back shoulder or neck Psychiatric Medical History: Reports: Hx Bipolar Disorder, Hx Depression Traumatic Medical History: Reports: Hx Fractures Past Surgical History: Reports: Hx Section, Hx Gynecologic Surgery, Hx Hysterectomy, Hx Orthopedic Surgery - L shoulder, Hx Tubal Ligation - Immunizations Immunizations up to date: Yes Hx Diphtheria, Pertussis, Tetanus Vaccination: Yes Hx Pneumococcal Vaccination: 02/01/13 Review of Systems - Review of Systems Notes: Constitutional: Negative for fever. HENT: Negative for sore throat. Eyes: Negative for visual changes. Cardiovascular: Negative for chest pain. Respiratory: Negative for shortness of breath. Gastrointestinal: Negative for abdominal pain, vomiting or diarrhea. Genitourinary: Negative for dysuria. Musculoskeletal: + Back pain, + Peripheral edema Skin: Negative for rash. Neurological: Negative for headaches, weakness or numbness. 10 point ROS negative except as marked above and in HPI. Physical Exam - Vital signs Vitals: Temp Pulse Resp BP Pulse Ox 97.7 F 102 H 24 H 153/81 H 97 01/06/20 16:17 01/06/20 16:17 01/06/20 16:17 01/06/20 16:17 01/06/20 16:17 - Notes Notes: PHYSICAL EXAMINATION: Physical Exam: General: Well-nourished well-developed cooperative 79-year-old female in no a cute distress HEENT: NC/AT, pupils equal round and reactive to light, MM moist,nares clear, oropharynx clear, airway patent Neck: supple, no adenopathy, no masses. Good range of motion Lungs: clear, no wheezing, no rales no rhonchi CVS: Regular rate and rhythm no murmur gallop or rub Abdomen: Soft, active, nontender, no masses, no hepatosplenomegaly Back: + Lumbar tenderness L3, L2 L1 region Ext: 2+ edema in the lower extremity laterally Neuro: Alert and responsive, moving all 4 extremities on command, cranial nerves intact, no focal findings Skin: Intact no open lesions, no rash PSYCH: Normal mood, normal affect. Course - Vital Signs Vital signs: Temp Pulse Resp BP Pulse Ox 97.8 F 91 22 H 150/78 H 97 01/06/20 20:57 01/06/20 20:57 01/06/20 20:57 01/06/20 20:57 01/06/20 20:57 - Laboratory Result Diagrams: 01/06/20 19:39 01/06/20 19:39 Laboratory results interpreted by me: 01/06/20 01/06/20 18:05 19:39 WBC 10.8 H Hgb 11.9 L MCV 77 L MCH 25.0 L RDW 17.2 H Urine Protein 30 H Urine Blood SMALL H 01/06/20 21:33 I have reviewed laboratory data and used this information for the treatment decisions regarding the patient. Discharge - Discharge Clinical Impression: Peripheral edema Lower back pain Qualifiers: Chronicity: unspecified Back pain laterality: unspecified Sciatica presence: without sciatica Qualified Code(s): M54.5 - Low back pain Condition: Good Disposition: ADMITTED INPATIENT Instructions: Edema, Peripheral ([facility]), Low Back Pain ([facility]) Additional Instructions: You are seen in emergency department tonight with lower back pain and peripheral edema. You were given prescriptions for Lasix 20 mg 1 tablet daily and may use extra strength Tylenol for back cramping. Please follow-up with your primary care doctor as needed. HOME CARE INSTRUCTIONS & INFORMATION: Thank you for choosing us for your medical needs. We hope you're satisfied with the care you received. After you leave, you must properly care for your problem and, at the same time, observe its progress. Any condition can change. Some illnesses can change rapidly over hours or days. If your condition worsens, return to the Emergency Department or see your physician promptly. ABOUT YOUR X-RAYS AND EKG'S: If you had an EKG or X-rays taken, they have been read by the Emergency Physician. The X-rays and EKG's will also be read by a Radiologist or Ramp And Cargo Supervisor within 24 hours. If discrepancies are noted, you will be notified by telephone. Please be certain the ED has a correct telephone number & address where you can be reached. Also, realize that some fractures or abnormalities do not show up on initial X-rays. If your symptoms continue, see your physician. ABOUT YOUR LABORATORY TEST: If you had laboratory tests, the results have been reviewed by the Emergency Physician. Some test results (for example cultures) may not be available for several days. You will be contacted if any test result shows you need additional treatment. Please be certain the ED has a correct telephone number and address where you can be reached. ABOUT YOUR MEDICATIONS: You will receive instructions on how to take your medicine on the prescription label you receive. Additional information may be provided by the Pharmacy. If you have questions afterwards, call the ED for clarification or further instructions. Some prescribed medications may cause drowsiness. Do not perform tasks such as driving a car or operating machinery without consulting your Pharmacist. If you feel you need a refill of pain medication, your condition will need re-evaluation. Please do not call for a refill of any medication. ABOUT YOUR SIGNATURE: Signature of this document acknowledges to followin. Understanding that you received emergency treatment and that you may be released before al medical problems are known or treated. Please be certain the ED has a correct phone number & address where you can be reached. 2. Acknowledgement that you will arrange for follow-up care as recommended. 3. Authorization for the Emergency Physician to provide information to your follow-up Physician in order to maximize your care. AT ANY TIME, IF YOUR SYMPTOMS CHANGE SIGNIFICANTLY OR WORSEN OR YOU DEVELOP NEW SYMPTOMS, RETURN TO THE EMERGENCY DEPARTMENT IMMEDIATELY FOR RE-EVALUATION. OUR GOAL IS TO PROVIDE EXCELLENT MEDICAL CARE! WE HOPE THAT WE HAVE MET YOUR EXPECTATIONS DURING YOUR EMERGENCY DEPARTMENT VISIT AND THAT YOU FEEL YOU HAVE RECEIVED EXCELLENT CARE! Prescriptions: Furosemide [Lasix 20 mg Tablet] 20 mg PO QAM #10 tablet Referrals: ROSLYN TOLEDO MD [Primary Care Provider] - Follow up as needed
== END 2020-01-06 22:20 | disposition other institution (70) ==
LOC: ER 16:11
DX: R60.0 Localized edema (principal); M54.5 Low back pain; I10 Essential (primary) hypertension; Z79.899 Other long term (current) drug therapy
CPT/HCPCS: 99285; 96372; 36415; 87086; 85025; 80053; 81001; 84484; 83880; 71046; J1885

== ENCOUNTER 2020-01-08 07:47 | Emergency (ER) | payer MEDICARE, MEDICAID ==
[2020-01-08 07:54] VITALS: BP 137/72
[2020-01-08] MEDS ORDERED: KETOROLAC TROMETHAMINE 60 MG/2 ML SDV IM ONE (08:42)
--- NOTE | 2020-01-08 08:45 | ER Document Report ---
ED General - General Chief Complaint: Back Pain Stated Complaint: BACK PAIN, FEET SWELLING Time Seen by Provider: 01/08/20 08:12 Primary Care Provider: [facility] [Provider Group] - Follow up in 3-5 days ROSLYN TOLEDO MD [Primary Care Provider] - Follow up in 3-5 days Notes: Patient is an 79-year-old female with history of chronic back pain who presents emergency department with a chief complaint of back pain and dysuria. Patient states that she fell about 3 months ago. Denies any new injuries. Patient states that she walks with her walker, but states that she cannot walk without it. Patient states that she was on Tylenol 3, but ran out of her pain medication. Patient states that the pain is in her mid lower back. Denies any radiation. Patient is able to walk during assessment. TRAVEL OUTSIDE OF THE [place] IN LAST 30 DAYS: No - Related Data Allergies/Adverse Reactions: No Known Allergies Allergy (Verified 01/08/20 07:51) Past Medical History - Social History Smoking Status: Never Smoker Family History: Reviewed & Not Pertinent Patient has homicidal ideation: No - Past Medical History Cardiac Medical History: Reports: Hx Hypercholesterolemia, Hx Hypertension Pulmonary Medical History: Reports: Hx COPD Endocrine Medical History: Reports: Hx Diabetes Mellitus Type 2 - "borderline" Renal/ Medical History: Reports: Hx Ovarian Cysts Malignancy Medical History: Reports: Hx Cervical Cancer - uterine cancer GI Medical History: Reports: Hx Gastroesophageal Reflux Disease Musculoskeletal Medical History: Reports Hx Arthritis - back, shoulders, and neck, Reports Hx Musculoskeletal Deformity - Chronic back pain arthritis and back shoulder or neck Psychiatric Medical History: Reports: Hx Bipolar Disorder, Hx Depression Traumatic Medical History: Reports: Hx Fractures Past Surgical History: Reports: Hx Section, Hx Gynecologic Surgery, Hx Hysterectomy, Hx Orthopedic Surgery - L shoulder, Hx Tubal Ligation - Immunizations Immunizations up to date: Yes Hx Diphtheria, Pertussis, Tetanus Vaccination: Yes Hx Pneumococcal Vaccination: 02/01/13 Review of Systems - Review of Systems Notes: REVIEW OF SYSTEMS: CONSTITUTIONAL : Denies recent illness. Denies recent unintentional weight loss. Denies fever, chills, or sweats. EENT: Denies eye, ear, throat, or mouth pain, discharge, or symptoms. Denies nasal or sinus congestion. CARDIOVASCULAR: Denies chest pain. RESPIRATORY: Denies shortness of breath, cough, congestion, difficulty breathing, or wheezing. GASTROINTESTINAL: Denies nausea, vomiting, and diarrhea. Denies abdominal pain. Denies constipation. GENITOURINARY: See HPI. MUSCULOSKELETAL: See HPI. Denies joint pain or swelling. SKIN: Denies rash, itchiness, or lesions HEMATOLOGIC : Denies easy bruising or bleeding. LYMPHATIC: Denies swollen, painful, enlarged glands. NEUROLOGICAL: Denies no numbness or tingling denies weakness. Denies headache. Denies altered mental status. Denies alteration in speech. PSYCHIATRIC: Denies stress, anxiety, alteration in sleep patterns, or depression. All other systems reviewed and negative. Physical Exam - Vital signs Vitals: Temp Pulse Resp BP Pulse Ox 98.9 F 96 18 137/72 H 97 01/08/20 07:53 01/08/20 07:53 01/08/20 07:53 01/08/20 07:53 01/08/20 07:53 - Notes Notes: PHYSICAL EXAMINATION: GENERAL: Appears well, healthy, well-nourished, no acute distress. HEAD: Normocephalic, atraumatic. EYES: PERRL, conjunctiva normal, all extraocular movements intact, sclera nonicteric ENT: Moist mucous membranes. NECK: Supple, no noticeable swelling, redness, rash. Normal range of motion. LUNGS: Equal breath sounds bilaterally and clear to auscultation. No wheezes rales or rhonchi. CARDIOVASCULAR: S1-S2, regular rate, regular rhythm. Radial pulses 2+, normal. ABDOMEN: Normoactive bowel sounds. Soft, nontender, no guarding, no rebound tenderness, and no masses palpated. EXTREMITIES: Normal strength and range of motion, no pitting or edema. No cyanosis. NEUROLOGICAL: Moves all extremities upon command. Strength 5/5 in all extr emities. PSYCH: Normal mood, normal affect. SKIN: Warm, dry. No rash, lesions, ulcerations noted. Normal skin turgor. BACK: Tenderness noted to mid lower back. Course - Re-evaluation Re-evalutation: 01/08/20 10:30 Patient was able to walk to the restroom with no difficulty. No numbness or tingling down both legs. Of low suspicion for cauda equina syndrome. Hematology shows a slight leukocytosis of 11,300, but this is not very different from 2 days ago. Potassium is 3.2. We will give the patient potassium. This is most likely because she was started on Lasix. Urinalysis is unremarkable. No leukocytosis noted. We will give the patient a few doses of tramadol to help her over the next couple days. Advised her that she must follow-up with pain management. She is in agreement with this plan. Follow-up precautions were given. Verbal discharge instructions were given to the patient. They verbalized understanding. They are stable for discharge. - Vital Signs Vital signs: Temp Pulse Resp BP Pulse Ox 98.9 F 96 18 137/72 H 97 01/08/20 07:53 01/08/20 07:53 01/08/20 07:53 01/08/20 07:53 01/08/20 07:53 - Laboratory Result Diagrams: 01/08/20 09:25 01/08/20 09:25 Laboratory results interpreted by me: 01/08/20 01/08/20 01/08/20 08:40 09:25 09:25 WBC 11.3 H Hgb 11.7 L Hct 34.0 L MCV 74 L MCH 25.7 L RDW 16.8 H Absolute Neuts (auto) 8.6 H Sodium 135.5 L Potassium 3.2 L Carbon Dioxide 21 L Glucose 121 H Urine Blood SMALL H Discharge - Discharge Clinical Impression: Chronic back pain Qualifiers: Back pain location: low back pain Back pain laterality: midline Sciatica presence: without sciatica Qualified Code(s): M54.5 - Low back pain Condition: Stable Disposition: HOME, SELF-CARE Additional Instructions: You were seen today in the emergency department for back pain. Your labs are very reassuring today. It is very important that you follow-up with pain management to manage her chronic back pain. Please also follow-up with your primary care provider. Please be careful, as the medication prescribed to you can increase your risk for falls. Prescriptions: Tramadol HCl [Ultram 50 mg Tablet] 50 mg PO Q6HP PRN #12 tab PRN Reason: Referrals: ROSLYN TOLEDO MD [Primary Care Provider] - Follow up in 3-5 days [facility] [Provider Group] - Follow up in 3-5 days
[2020-01-08 08:59] LABS: APPEARANCE,URINE CLEAR; BILIRUBIN,URINE NEGATIVE (NEGATIVE); COLOR,URINE COLORLESS; GLUCOSE, URINE NEGATIVE (NEGATIVE); KETONES,URINE NEGATIVE (NEGATIVE); PROTEIN,URINE NEGATIVE (NEGATIVE); URINE SPECIFIC GRAVITY 1.004; UROBILINOGEN,URINE NEGATIVE mg/dL (<2.0)
[2020-01-08 09:32] LABS: ABSOLUTE BASOPHILS # (AUTO) 0.1 10^3/uL (0.0-0.2); ABSOLUTE EOSINOPHILS # (AUTO) 0.1 10^3/uL (0.0-0.6); ABSOLUTE LYMPHOCYTES (AUTO) 1.8 10^3/uL (0.5-4.7); ABSOLUTE MONOCYTES (AUTO) 0.7 10^3/uL (0.1-1.4); ABSOLUTE NEUT (AUTO) 8.6 10^3/uL (1.7-8.2); BASOPHILS % (AUTO) 0.6 % (0-2); EOSINOPHILS % (AUTO) 1.1 % (0-6); HEMOGLOBIN 11.7 g/dL (12.0-15.5); LYMPHOCYTES % (AUTO) 15.8 % (13-45); MEAN CORPUSCULAR HEMOGLOBIN 25.7 pg (27.0-33.4); MEAN CORPUSCULAR HGB CONC 34.5 g/dL (32.0-36.0); MEAN CORPUSCULAR VOLUME 74 fl (80-97); MONOCYTES % (AUTO) 6.6 % (3-13); PLATELET COUNT 402 10^3/uL (150-450); RED BLOOD COUNT 4.57 10^6/uL (3.72-5.28); RED CELL DISTRIBUTION WIDTH 16.8 % (11.5-14.0); SEGMENTED NEUTROPHILS % (AUTO) 75.9 % (42-78); TOTAL CELLS COUNTED % (AUTO) 100 %; WHITE BLOOD COUNT 11.3 10^3/uL (4.0-10.5)
[2020-01-08 09:51] LABS: ALBUMIN 3.9 g/dL (3.5-5.0); ALKALINE PHOSPHATASE 72 U/L (38-126); ANION GAP 14 (5-19); ASPARTATE AMINO TRANSFERASE 24 U/L (14-36); BILIRUBIN,DIRECT 0.3 mg/dL (0.0-0.4); BILIRUBIN,TOTAL 0.7 mg/dL (0.2-1.3); BLOOD UREA NITROGEN 7 mg/dL (7-20); CALCIUM 9.3 mg/dL (8.4-10.2); CARBON DIOXIDE 21 mmol/L (22-30); CHLORIDE 101 mmol/L (98-107); GLUCOSE 121 mg/dL (75-110); POTASSIUM 3.2 mmol/L (3.6-5.0); TOTAL PROTEIN 6.9 g/dL (6.3-8.2)
== END 2020-01-08 10:58 | disposition home or self-care (01) ==
LOC: ER 07:47
DX: G89.29 Other chronic pain (principal); M54.5 Low back pain; R30.0 Dysuria; E87.6 Hypokalemia; D72.829 Elevated white blood cell count, unspecified; I10 Essential (primary) hypertension; J44.9 Chronic obstructive pulmonary disease, unspecified; Z91.81 History of falling
CPT/HCPCS: 99284; 96372; 36415; 85025; 80053; 81001; J1885

== ENCOUNTER 2020-01-18 08:27 | Emergency (ER) | payer MEDICARE, MEDICAID ==
[2020-01-18] MEDS ORDERED: FUROSEMIDE 40 MG TABLET PO ONE (09:30)
[2020-01-18] MEDS ORDERED: KETOROLAC TROMETHAMINE 60 MG/2 ML SDV IM ONE (09:30)
[2020-01-18 10:02] LABS: ABSOLUTE BASOPHILS # (AUTO) 0.1 10^3/uL (0.0-0.2); ABSOLUTE EOSINOPHILS # (AUTO) 0.2 10^3/uL (0.0-0.6); ABSOLUTE LYMPHOCYTES (AUTO) 1.4 10^3/uL (0.5-4.7); ABSOLUTE MONOCYTES (AUTO) 0.4 10^3/uL (0.1-1.4); ABSOLUTE NEUT (AUTO) 5.2 10^3/uL (1.7-8.2); BASOPHILS % (AUTO) 0.7 % (0-2); EOSINOPHILS % (AUTO) 2.7 % (0-6); HEMATOCRIT 32.3 % (36.0-47.0); HEMOGLOBIN 11.2 g/dL (12.0-15.5); LYMPHOCYTES % (AUTO) 19.8 % (13-45); MEAN CORPUSCULAR HEMOGLOBIN 26.4 pg (27.0-33.4); MEAN CORPUSCULAR HGB CONC 34.8 g/dL (32.0-36.0); MEAN CORPUSCULAR VOLUME 76 fl (80-97); MONOCYTES % (AUTO) 5.8 % (3-13); PLATELET COUNT 388 10^3/uL (150-450); RED BLOOD COUNT 4.26 10^6/uL (3.72-5.28); RED CELL DISTRIBUTION WIDTH 16.7 % (11.5-14.0); TOTAL CELLS COUNTED % (AUTO) 100 %; WHITE BLOOD COUNT 7.3 10^3/uL (4.0-10.5)
[2020-01-18 10:04] LABS: APPEARANCE,URINE CLEAR; BILIRUBIN,URINE NEGATIVE (NEGATIVE); COLOR,URINE STRAW; GLUCOSE, URINE NEGATIVE (NEGATIVE); KETONES,URINE NEGATIVE (NEGATIVE); PROTEIN,URINE NEGATIVE (NEGATIVE); URINE SPECIFIC GRAVITY 1.008; UROBILINOGEN,URINE NEGATIVE mg/dL (<2.0)
[2020-01-18 10:20] LABS: ALBUMIN 4.1 g/dL (3.5-5.0); ALKALINE PHOSPHATASE 64 U/L (38-126); ANION GAP 12 (5-19); ASPARTATE AMINO TRANSFERASE 24 U/L (14-36); BILIRUBIN,DIRECT 0.3 mg/dL (0.0-0.4); BILIRUBIN,TOTAL 0.4 mg/dL (0.2-1.3); BLOOD UREA NITROGEN 13 mg/dL (7-20); CALCIUM 9.5 mg/dL (8.4-10.2); CARBON DIOXIDE 23 mmol/L (22-30); CHLORIDE 102 mmol/L (98-107); GLUCOSE 144 mg/dL (75-110); POTASSIUM 3.8 mmol/L (3.6-5.0); TOTAL PROTEIN 7.3 g/dL (6.3-8.2)
--- NOTE | 2020-01-18 11:46 | ER Document Report ---
ED General - General Chief Complaint: Leg Pain Stated Complaint: BACK PAIN,FEET SWELLING Time Seen by Provider: 01/18/20 09:01 Primary Care Provider: ROSLYN TOLEDO MD [Primary Care Provider] - Follow up as needed Mode of Arrival: Ambulatory Information source: Patient TRAVEL OUTSIDE OF THE [place] IN LAST 30 DAYS: No - HPI Notes: Patient presents with several complaints. She states she has chronic back pain and that this is flaring up. She states she no longer has any pain medicine. She states she no longer has a primary care provider. She also states she is had some dysuria and feels she may have a urinary tract infection. In addition she feels that her ankles are swelling more than usual and that they are tender and painful. They are worse with movement and better with rest. The pain radiates up both legs. It is mild to moderate. An aching sensation. No fevers vomiting or diarrhea. - Related Data Allergies/Adverse Reactions: No Known Allergies Allergy (Verified 01/18/20 09:09) Past Medical History - General Information source: Patient - Social History Smoking Status: Never Smoker Frequency of alcohol use: None Drug Abuse: None Family History: Reviewed & Not Pertinent - Past Medical History Cardiac Medical History: Reports: Hx Hypercholesterolemia, Hx Hypertension Pulmonary Medical History: Reports: Hx COPD Endocrine Medical History: Reports: Hx Diabetes Mellitus Type 2 - "borderline" Renal/ Medical History: Reports: Hx Ovarian Cysts Malignancy Medical History: Reports: Hx Cervical Cancer - uterine cancer GI Medical History: Reports: Hx Gastroesophageal Reflux Disease Musculoskeletal Medical History: Reports Hx Arthritis - back, shoulders, and neck, Reports Hx Musculoskeletal Deformity - Chronic back pain arthritis and back shoulder or neck Psychiatric Medical History: Reports: Hx Bipolar Disorder, Hx Depression Traumatic Medical History: Reports: Hx Fractures Past Surgical History: Reports: Hx Section, Hx Gynecologic Surgery, Hx Hysterectomy, Hx Orthopedic Surgery - L shoulder, Hx Tubal Ligation - Immunizations Immunizations up to date: Yes Hx Diphtheria, Pertussis, Tetanus Vaccination: Yes Hx Pneumococcal Vaccination: 02/01/13 Review of Systems - Review of Systems Constitutional: denies: Chills, Fever Cardiovascular: denies: Chest pain, Palpitations Respiratory: denies: Cough, Short of breath -: Yes All other systems reviewed and negative Physical Exam - Vital signs Vitals: Temp Pulse Resp BP Pulse Ox 98.2 F 81 21 H 141/66 H 100 01/18/20 08:30 01/18/20 08:30 01/18/20 08:30 01/18/20 08:30 01/18/20 08:30 Interpretation: Normal - General General appearance: Appears well, Alert - HEENT Head: Normocephalic, Atraumatic Eyes: Normal Pupils: PERRL - Respiratory Respiratory status: No respiratory distress Chest status: Nontender Breath sounds: Normal Chest palpation: Normal - Cardiovascular Rhythm: Regular Heart sounds: Normal auscultation Murmur: No - Abdominal Inspection: Normal Distension: No distension Bowel sounds: Normal Tenderness: Nontender Organomegaly: No organomegaly - Back Back: Normal, Nontender - Extremities General upper extremity: Normal inspection, Nontender, Normal color, Normal ROM, Normal temperature General lower extremity: Tender - Patient has some mild tenderness to palpation of the ankle area bilaterally. However no evidence of cellulitis or infectious process., Edema - 2+ bilaterally, Normal color, Normal ROM, Normal temperature, Normal weight bearing. No: Asher's sign - Neurological Neuro grossly intact: Yes Cognition: Normal Orientation: AAOx4 Vestal Coma Scale Eye Opening: Spontaneous Vestal Coma Scale Verbal: Oriented Vestal Coma Scale Motor: Obeys Commands Vestal Coma Scale Total: 15 Speech: Normal Motor strength normal: LUE, RUE, LLE, RLE Sensory: Normal - Psychological Associated symptoms: Normal affect, Normal mood - Skin Skin Temperature: Warm Skin Moisture: Dry Skin Color: Normal Course - Re-evaluation Re-evalutation: 01/18/20 11:46 Patient has had numerous visits the emergency departments for similar complaints. Today her main concern is her ankle swelling and pain. I do not see any evidence of cellulitis or infection I have given her extra dose of her Lasix. She also states that she is out of her pain medication and does not currently have a primary care physician. I am going to refer her to primary care and give her some pain medicine for home. - Vital Signs Vital signs: Temp Pulse Resp BP Pulse Ox 98.2 F 81 21 H 141/66 H 100 01/18/20 08:30 01/18/20 08:30 01/18/20 08:30 01/18/20 08:30 01/18/20 08:30 - Laboratory Result Diagrams: 01/18/20 09:49 01/18/20 09:49 Laboratory results interpreted by me: 01/18/20 01/18/20 01/18/20 09:49 09:49 09:49 Hgb 11.2 L Hct 32.3 L MCV 76 L MCH 26.4 L RDW 16.7 H Sodium 136.5 L Glucose 144 H Urine Blood SMALL H Discharge - Discharge Clinical Impression: Edema Qualifiers: Edema type: localized Qualified Code(s): R60.0 - Localized edema Condition: Stable Disposition: HOME, SELF-CARE Instructions: Dependent Edema ([facility]) Additional Instructions: Please call a primary physician as soon as possible to arrange follow-up Prescriptions: Tramadol HCl [Ultram] 50 mg PO Q6 PRN 3 Days #12 tablet PRN Reason: For Pain Referrals: LESTER MARSH MD [COMMUNITY BASED STAFF] - Follow up in 3-5 days
[2020-01-18 11:55] VITALS: BP 139/59
== END 2020-01-18 11:58 | disposition home or self-care (01) ==
LOC: ER 08:27
DX: R60.0 Localized edema (principal); R30.0 Dysuria; G89.29 Other chronic pain; M54.9 Dorsalgia, unspecified; E78.00 Pure hypercholesterolemia, unspecified; I10 Essential (primary) hypertension; J44.9 Chronic obstructive pulmonary disease, unspecified; E11.9 Type 2 diabetes mellitus without complications
CPT/HCPCS: 99284; 96372; 36415; 85025; 80053; 81001; 83880; J1885; A9270

== ENCOUNTER 2020-01-29 18:14 | Emergency (ER) | payer MEDICARE, MEDICAID ==
--- NOTE | 2020-01-29 19:45 | ER Document Report ---
ED General - General TRAVEL OUTSIDE OF THE [place] IN LAST 30 DAYS: No <LATOSHA ALEXANDER - Last Filed: 01/29/20 20:12> <SHERRIE ESCOTO - Last Filed: 01/29/20 23:02> - General Chief Complaint: Constipation Stated Complaint: CONSTIPATION Primary Care Provider: ROSLYN TOLEDO MD [Primary Care Provider] - Follow up as needed Notes: 79-year-old female with past medical history of constipation, hemorrhoids and chronic low back pain diabetes presenting today with 4 days of inability to have a bowel movement. She also reports she has had a couple of episodes of bright red blood in the toilet. She says this occurred to her before couple months ago when she was diagnosed with constipation and given an enema. She has been taking [id number] laxative which has not provided any relief this time. She denies any fevers, chills or additional symptoms at this time. She states she is having lower abdominal pain as well. She has not been able to eat because she is constipated. Continues to remark that she has chronic low back pain that she used to take Tylenol 3 for. She does not have a pain management doctor. (LATOSHA ALEXANDER) - Related Data Allergies/Adverse Reactions: No Known Allergies Allergy (Verified 01/18/20 09:09) Past Medical History - Social History Smoking Status: Never Smoker Family History: Reviewed & Not Pertinent - Past Medical History Cardiac Medical History: Reports: Hx Hypercholesterolemia, Hx Hypertension Pulmonary Medical History: Reports: Hx COPD Endocrine Medical History: Reports: Hx Diabetes Mellitus Type 2 - "borderline" Renal/ Medical History: Reports: Hx Ovarian Cysts Malignancy Medical History: Reports: Hx Cervical Cancer - uterine cancer GI Medical History: Reports: Hx Gastroesophageal Reflux Disease Musculoskeletal Medical History: Reports Hx Arthritis - back, shoulders, and neck, Reports Hx Musculoskeletal Deformity - Chronic back pain arthritis and back shoulder or neck Psychiatric Medical History: Reports: Hx Bipolar Disorder, Hx Depression Traumatic Medical History: Reports: Hx Fractures Past Surgical History: Reports: Hx Section, Hx Gynecologic Surgery, Hx Hysterectomy, Hx Orthopedic Surgery - L shoulder, Hx Tubal Ligation - Immunizations Immunizations up to date: Yes Hx Diphtheria, Pertussis, Tetanus Vaccination: Yes Hx Pneumococcal Vaccination: 02/01/13 <LATOSHA ALEXANDER - Last Filed: 01/29/20 20:12> Review of Systems - Review of Systems Constitutional: No symptoms reported EENT: No symptoms reported Cardiovascular: No symptoms reported Respiratory: No symptoms reported Gastrointestinal: See HPI Genitourinary: No symptoms reported Female Genitourinary: No symptoms reported Musculoskeletal: See HPI Skin: No symptoms reported Hematologic/Lymphatic: No symptoms reported Neurological/Psychological: No symptoms reported <LATOSHA ALEXANDER - Last Filed: 01/29/20 20:12> Physical Exam - Vital signs Interpretation: Tachycardic. No: Tachypneic, Febrile <LATOSHA ALEXANDER - Last Filed: 01/29/20 20:12> - Vital signs Vitals: Temp Pulse Resp BP Pulse Ox 98.3 F 106 H 20 115/82 95 01/29/20 18:19 01/29/20 18:19 01/29/20 18:19 01/29/20 18:19 01/29/20 18:19 - Notes Notes: Adult General: GENERAL: Alert, interacts well. No acute distress HEAD: Normocephalic, atraumatic EYES: Extraocular movements intact. ENT: Airway patent. Nares patent. NECK: Full range of motion. Supple. Trachea midline. No lymphadenopathy. LUNGS: Clear to auscultation bilaterally, no wheezes, rales, or rhonchi. No respiratory distress. Nontender chest wall. HEART: Regular rate and rhythm. No murmurs, rubs or gallops. ABDOMEN: Soft, tender bilateral lower quadrant. Nondistended. (-) [place] sign. Bowel sounds present in all 4 quadrants. No rebound, guarding or masses. GENITOURINARY: Deferred EXTREMITIES: Moves all 4 extremities spontaneously. No edema, normal radial and dorsal pedis pulses bilaterally. No cyanosis. BACK: No cervical, thoracic, lumbar midline tenderness. No saddle anesthesia, normal distal neurovascular exam. Moves all extremities with full range of motion. NEUROLOGICAL: Alert and oriented x3. Normal speech. Strength 5/ 5 in all extremities. PSYCH: Normal affect, normal mood. SKIN: Warm, dry, normal turgor. No rashes or lesions noted. (LATOSHA ALEXANDER) Course <LATOSHA ALEXANDER - Last Filed: 01/29/20 20:12> - Laboratory Result Diagrams: 01/29/20 20:34 01/29/20 20:34 - Diagnostic Test Radiology reviewed: Image reviewed, Reports reviewed <SHERRIE ESCOTO - Last Filed: 01/29/20 23:02> - Re-evaluation Re-evalutation: 01/29/20 19:42 Patient is nontoxic in appearance, alert and oriented. Has not had a bowel movement in 4 days and has had rectal bleeding. I discussed at length with patient that I will need to do a rectal exam to evaluate for any active bleeding. She states that she does not want to have this performed as it would cause her more pain and she is already in pain. I discussed with the patient the risks of not having this performed and having an appropriate for an accurate diagnosis. She continues to deny wanting to have the Hemoccult testing performed. She continues to say that last time all she had was an enema. I reviewed her note in September and she did have a rectal exam with a negative Hemoccult. I will go ahead and order her an abdominal x-ray to evaluate for constipation and order her pain meds and labs. 01/29/20 19:58 I received a call from the nurses station he says the patient is refusing Tylenol and that she wants Toradol as this is what they always give her. Upon further chart review she has had Toradol in the past. We will go ahead and order her Toradol. Further chart review shows that patient has previously been prescribed tramadol for an extended period of time. 01/29/20 20:12 I have ordered an enema for the patient. Patient turned over to Sherrie Escoto [facility]. (LATOSHA ALEXANDER) 01/29/20 22:51 Patient with good return after enema and is requesting be discharged at this time. Patient was found to be hypokalemic and has a history of this in the past. Patient will be given a prescription for short course of potassium chlori de for replenishment. Patient encouraged to contact her primary doctor tomorrow for recheck. (SHERRIE ESCOTO) - Vital Signs Vital signs: Temp Pulse Resp BP Pulse Ox 98.3 F 106 H 20 115/82 95 01/29/20 18:19 01/29/20 18:19 01/29/20 18:19 01/29/20 18:19 01/29/20 18:19 - Laboratory Laboratory results interpreted by me: 01/29/20 01/29/20 20:34 20:34 WBC 12.5 H Hgb 11.5 L Hct 34.4 L MCV 75 L MCH 25.2 L RDW 16.2 H Lymph % (Auto) 12.7 L Absolute Neuts (auto) 9.9 H Seg Neutrophils % 79.8 H Sodium 135.5 L Potassium 2.7 L* Glucose 116 H Discharge <LATOSHA ALEXANDER - Last Filed: 01/29/20 20:12> <SHERRIE ESCOTO - Last Filed: 01/29/20 23:02> - Discharge Clinical Impression: Hypokalemia Constipation Qualifiers: Constipation type: unspecified constipation type Qualified Code(s): K59.00 - Constipation, unspecified Condition: Stable Disposition: HOME, SELF-CARE Instructions: Constipation ([facility]), Hypokalemia ([facility]) Additional Instructions: Return immediately for any new or worsening symptoms Followup with your primary care provider, call tomorrow to make a followup appointment Your potassium was low today, your primary doctor will need to recheck this laboratory test, call them tomorrow for further evaluation. Prescriptions: Potassium Chloride 20 meq PO BID #6 [email or web address] Referrals: ROSLYN TOLEDO MD [Primary Care Provider] - Follow up tomorrow
[2020-01-29] MEDS ORDERED: ACETAMINOPHEN 325 MG TABLET PO ONE (19:46)
[2020-01-29] MEDS ORDERED: KETOROLAC TROMETHAMINE INJ/PF 30 MG/1 ML SDV IM ONE (19:58)
[2020-01-29] MEDS ORDERED: MINERAL OIL 30 ML UDCUP PR ONE (20:10)
--- NOTE | 2020-01-29 20:40 | RADIOLOGY REPORT (SQ) ---
EXAM DESCRIPTION: [facility]: XR ABDOMEN 1 VIEW (KUB) CLINICAL HISTORY: 79 years Female; eval for constipation; COMPARISON: None. FINDINGS: Bowel gas pattern is within normal limits, with no significant distention. No pneumatosis. No suspicious calcifications. Chronic degenerative changes throughout the lumbar spine with a mild levocurvature. IMPRESSION: 1. No acute abdominal findings.
[2020-01-29 20:41] LABS: ABSOLUTE BASOPHILS # (AUTO) 0.1 10^3/uL (0.0-0.2); ABSOLUTE LYMPHOCYTES (AUTO) 1.6 10^3/uL (0.5-4.7); ABSOLUTE MONOCYTES (AUTO) 0.8 10^3/uL (0.1-1.4); ABSOLUTE NEUT (AUTO) 9.9 10^3/uL (1.7-8.2); BASOPHILS % (AUTO) 0.8 % (0-2); EOSINOPHILS % (AUTO) 0.3 % (0-6); HEMATOCRIT 34.4 % (36.0-47.0); HEMOGLOBIN 11.5 g/dL (12.0-15.5); LYMPHOCYTES % (AUTO) 12.7 % (13-45); MEAN CORPUSCULAR HEMOGLOBIN 25.2 pg (27.0-33.4); MEAN CORPUSCULAR HGB CONC 33.5 g/dL (32.0-36.0); MEAN CORPUSCULAR VOLUME 75 fl (80-97); MONOCYTES % (AUTO) 6.4 % (3-13); PLATELET COUNT 397 10^3/uL (150-450); RED BLOOD COUNT 4.58 10^6/uL (3.72-5.28); RED CELL DISTRIBUTION WIDTH 16.2 % (11.5-14.0); SEGMENTED NEUTROPHILS % (AUTO) 79.8 % (42-78); TOTAL CELLS COUNTED % (AUTO) 100 %; WHITE BLOOD COUNT 12.5 10^3/uL (4.0-10.5)
[2020-01-29 21:00] LABS: ALBUMIN 3.9 g/dL (3.5-5.0); ALKALINE PHOSPHATASE 71 U/L (38-126); ANION GAP 12 (5-19); ASPARTATE AMINO TRANSFERASE 26 U/L (14-36); BILIRUBIN,DIRECT 0.2 mg/dL (0.0-0.4); BILIRUBIN,TOTAL 0.6 mg/dL (0.2-1.3); BLOOD UREA NITROGEN 19 mg/dL (7-20); CALCIUM 9.4 mg/dL (8.4-10.2); CARBON DIOXIDE 25 mmol/L (22-30); CHLORIDE 99 mmol/L (98-107); GLUCOSE 116 mg/dL (75-110); TOTAL PROTEIN 6.8 g/dL (6.3-8.2)
[2020-01-29 21:13] LABS: POTASSIUM 2.7 mmol/L (3.6-5.0)
[2020-01-29] MEDS ORDERED: POTASSIUM CHLORIDE 10 MEQ TABLET.ER PO ONE (21:22)
[2020-01-29 23:08] VITALS: BP 118/76
--- NOTE | 2020-01-30 02:12 | EKG REPORT ---
SEVERITY:- ABNORMAL ECG - SINUS RHYTHM LEFT ANTERIOR FASCICULAR BLOCK LEFT VENTRICULAR HYPERTROPHY : Confirmed by: Enma Eckert MD 30-Jan-2020 02:12:18
== END 2020-01-29 23:18 | disposition home or self-care (01) ==
LOC: ER 18:14
DX: K59.00 Constipation, unspecified (principal); E87.6 Hypokalemia; R19.5 Other fecal abnormalities; M54.5 Low back pain; G89.29 Other chronic pain; I10 Essential (primary) hypertension; J44.9 Chronic obstructive pulmonary disease, unspecified; E11.9 Type 2 diabetes mellitus without complications
CPT/HCPCS: 93005; 99285; 96372; 36415; 83735; 85025; 80053; 74018; 93010; J1885; A9270 ×2; J3490

== ENCOUNTER 2020-02-01 08:03 | Emergency (ER) | payer MEDICARE, MEDICAID ==
[2020-02-01] MEDS ORDERED: KETOROLAC TROMETHAMINE 60 MG/2 ML SDV IM ONE (08:26)
[2020-02-01 08:39] VITALS: BP 125/78
--- NOTE | 2020-02-01 09:01 | ER Document Report ---
ED General - General Chief Complaint: Back Pain Stated Complaint: LOWER BACK PAIN Time Seen by Provider: 02/01/20 08:19 Primary Care Provider: RSOLYN TOLEDO MD [Primary Care Provider] - Follow up as needed Mode of Arrival: Ambulatory Information source: Patient TRAVEL OUTSIDE OF THE [place] IN LAST 30 DAYS: No - HPI Notes: Patient presents with low back pain. She states it is constant and severe. She states that it kept her up last night. She denies any recent new injuries falls or trauma. She does have chronic back pain. She states she is currently being referred to pain management. She states that she has tried Ultram in the past and oxycodone and both of those have helped. She denies any problems with urine or stool. She denies any new changes to the pain. She states this feels like her chronic pain. Patient is well-known to me. Patient describes the pain is radiating across her back. It is worse with movement and better with rest. - Related Data Allergies/Adverse Reactions: No Known Allergies Allergy (Verified 01/18/20 09:09) Past Medical History - General Information source: Patient - Social History Smoking Status: Former Smoker Chew tobacco use (# tins/day): No Frequency of alcohol use: None Drug Abuse: None Family History: Reviewed & Not Pertinent Patient has homicidal ideation: No - Past Medical History Cardiac Medical History: Reports: Hx Hypercholesterolemia, Hx Hypertension Pulmonary Medical History: Reports: Hx COPD Endocrine Medical History: Reports: Hx Diabetes Mellitus Type 2 - "borderline" Renal/ Medical History: Reports: Hx Ovarian Cysts Malignancy Medical History: Reports: Hx Cervical Cancer - uterine cancer GI Medical History: Reports: Hx Gastroesophageal Reflux Disease Musculoskeletal Medical History: Reports Hx Arthritis - back, shoulders, and neck, Reports Hx Musculoskeletal Deformity - Chronic back pain arthritis and back shoulder or neck Psychiatric Medical History: Reports: Hx Bipolar Disorder, Hx Depression Traumatic Medical History: Reports: Hx Fractures Past Surgical History: Reports: Hx Section, Hx Gynecologic Surgery, Hx Hysterectomy, Hx Orthopedic Surgery - L shoulder, Hx Tubal Ligation - Immunizations Immunizations up to date: Yes Hx Diphtheria, Pertussis, Tetanus Vaccination: Yes Hx Pneumococcal Vaccination: 02/01/13 Review of Systems - Review of Systems Constitutional: denies: Chills, Fever Cardiovascular: denies: Chest pain, Palpitations Respiratory: denies: Cough, Short of breath Physical Exam - Vital signs Vitals: Temp 97.8 F 02/01/20 08:03 Interpretation: Normal - General General appearance: Appears well, Alert - HEENT Head: Normocephalic, Atraumatic Eyes: Normal Pupils: PERRL - Respiratory Respiratory status: No respiratory distress Chest status: Nontender Breath sounds: Normal Chest palpation: Normal - Cardiovascular Rhythm: Regular Heart sounds: Normal auscultation Murmur: No - Abdominal Inspection: Normal Distension: No distension Bowel sounds: Normal Tenderness: Nontender Organomegaly: No organomegaly - Back Back: Tender - Patient has diffuse musculoskeletal tenderness to palpation of the lumbar area but no spinal bony tenderness. - Extremities General upper extremity: Normal inspection, Nontender, Normal color, Normal ROM, Normal temperature General lower extremity: Normal inspection, Nontender, Normal color, Normal ROM, Normal temperature, Normal weight bearing. No: Asher's sign - Neurological Neuro grossly intact: Yes Cognition: Normal Orientation: AAOx4 Tim Coma Scale Eye Opening: Spontaneous Tim Coma Scale Verbal: Oriented Tim Coma Scale Motor: Obeys Commands [place] Coma Scale Total: 15 Speech: Normal Motor strength normal: LUE, RUE, LLE, RLE Sensory: Normal - Psychological Associated symptoms: Normal affect, Normal mood - Skin Skin Temperature: Warm Skin Moisture: Dry Skin Color: Normal Course - Re-evaluation Re-evalutation: 02/01/20 08:58 Patient is well-known to me and has had numerous visits here for chronic back pain. She is currently out of her pain medication. She states she does have a a appointment with her primary care physician tomorrow and is currently being referred to pain management. I do not see any worrisome signs accompanying the back pain such as fevers, vomiting, trouble with bowels, trouble with urine. Patient's vitals appear stable. She is nontoxic-appearing. I do not believe it would benefit the patient to have laboratories or imaging at this time. - Vital Signs Vital signs: Temp Pulse Resp BP Pulse Ox 98 F 81 22 H 125/78 96 02/01/20 08:12 02/01/20 08:12 02/01/20 08:21 02/01/20 08:21 02/01/20 08:21 Discharge - Discharge Clinical Impression: Lumbar disc disease with radiculopathy Back pain Qualifiers: Back pain location: low back pain Chronicity: acute Back pain laterality: bilateral Sciatica presence: without sciatica Qualified Code(s): M54.5 - Low back pain Condition: Stable Disposition: HOME, SELF-CARE Instructions: Low Back Pain ([facility]) Additional Instructions: Please follow-up with Dr. Toledo tomorrow Prescriptions: Tramadol HCl [Ultram] 50 mg PO Q6 PRN 3 Days #12 tablet PRN Reason: Referrals: ROSLYN TLOEDO MD [Primary Care Provider] - Follow up tomorrow
== END 2020-02-01 09:34 | disposition home or self-care (01) ==
LOC: ER 08:03
DX: G89.29 Other chronic pain (principal); M54.5 Low back pain; M51.16 Intervertebral disc disorders with radiculopathy, lumbar region; I10 Essential (primary) hypertension; J44.9 Chronic obstructive pulmonary disease, unspecified; Z87.891 Personal history of nicotine dependence
CPT/HCPCS: 99284; 96372; J1885

== ENCOUNTER 2020-02-04 12:46 | Emergency (ER) | payer MEDICARE, MEDICAID ==
[2020-02-04 13:01] VITALS: BP 120/63
[2020-02-04] MEDS ORDERED: KETOROLAC TROMETHAMINE 60 MG/2 ML SDV IM ONE (13:16)
--- NOTE | 2020-02-04 13:27 | ER Document Report ---
HPI - HPI Patient complains to provider of: med refill Time Seen by Provider: 02/04/20 13:05 Pain Level: 4 Context: 79-year-old female with chronic low back pain presents to the emergency room requesting a prescription for tramadol. Patient was seen here 3 days ago for her chronic back pain was given a prescription for 12 tramadol which she states she ran out of yesterday. Patient was also here 3 days prior to that and had gotten 12 tramadol. Patient follows up with her primary care physician for chronic pain which she did 2 days ago. She has a prescription for Tylenol with codeine but she cannot get it filled until February 06. States she was kicked out of pain management in the past for abusing her narcotics. She is pending a new referral to a new pain management group. Patient denies a loss control over her bowels or her bladder. No saddle anesthesia. States this is her chronic back pain that she always has. Patient drove self to the emergency room. Associated Symptoms: None Exacerbated by: Movement Relieved by: Denies Similar symptoms previously: Yes - Chronic back pain Recently seen / treated by doctor: Yes - In the emergency room 3 days ago. - ROS Systems Reviewed and Negative: Yes All other systems reviewed and negative - CONSTITUTIONAL Constitutional: DENIES: Fever, Chills - NEURO Neurology: REPORTS: Weakness - REPRODUCTIVE Reproductive: DENIES: : - MUSCULOSKELETAL Musculoskeletal: REPORTS: Back Pain - DERM Skin Color: Normal Skin Problems: None Past Medical History - General Information source: Patient - Social History Smoking Status: Never Smoker Chew tobacco use (# tins/day): No Frequency of alcohol use: None Drug Abuse: None Family History: Reviewed & Not Pertinent - Past Medical History Cardiac Medical History: Reports: Hx Hypercholesterolemia, Hx Hypertension Pulmonary Medical History: Reports: Hx COPD Endocrine Medical History: Reports: Hx Diabetes Mellitus Type 2 - "borderline" Renal/ Medical History: Reports: Hx Ovarian Cysts Malignancy Medical History: Reports: Hx Cervical Cancer - uterine cancer GI Medical History: Reports: Hx Gastroesophageal Reflux Disease Musculoskeletal Medical History: Reports Hx Arthritis - back, shoulders, and neck, Reports Hx Musculoskeletal Deformity - Chronic back pain arthritis and back shoulder or neck Psychiatric Medical History: Reports: Hx Bipolar Disorder, Hx Depression Traumatic Medical History: Reports: Hx Fractures Past Surgical History: Reports: Hx Section, Hx Gynecologic Surgery, Hx Hysterectomy, Hx Orthopedic Surgery - L shoulder, Hx Tubal Ligation - Immunizations Immunizations up to date: Yes Hx Diphtheria, Pertussis, Tetanus Vaccination: Yes Hx Pneumococcal Vaccination: 02/01/13 Vertical Provider Document - CONSTITUTIONAL Agree With Documented VS: Yes Exam Limitations: No Limitations General Appearance: Mild Distress - INFECTION CONTROL TRAVEL OUTSIDE OF THE [place] IN LAST 30 DAYS: No - HEENT HEENT: Atraumatic, Normocephalic - NECK Neck: Normal Inspection, Supple - RESPIRATORY Respiratory: Breath Sounds Normal, No Respiratory Distress - CARDIOVASCULAR Cardiovascular: Regular Rate, Regular Rhythm, No Murmur - BACK Back: Abnormal Inspection - Tenderness on palpation from L4-S1. Nontender over the bilateral sciatic notches. Negative straight leg raising bilaterally.. negative: CVA Tenderness-Right, CVA Tenderness-Left - MUSCULOSKELETAL/EXTREMETIES Musculoskeletal/Extremeties: FROM, Non-Tender - NEURO Level of Consciousness: Awake, Alert Motor/Sensory: No Motor Deficit, No Sensory Deficit - DERM Integumentary: Warm, Dry, No Rash Course - Re-evaluation Re-evalutation: 02/04/20 13:21 Patient was counseled that she has gotten multiple narcotic prescriptions chronically and that at this time I cannot prescribe her any more narcotics. Patient is on chronic Tylenol with codeine from her primary care physician which is not due to be refilled until February 06. She was seen here twice last month in the ER and was given a total of 24 tramadol. Most recently 3 days ago. Explained to patient that with all those narcotics she cannot continue to get any more narcotics filled from the emergency room. Patient is waiting on a referral to pain management as she was previously terminated from pain management for abusing her narcotics. Patient requested a shot of Toradol IM. Patient will be given a shot of IM Toradol and referred for outpatient follow-up with her primary care physician and pain management as scheduled. Patient was given strict return to the emergency room guidelines. Return for any new or worsening symptoms. All questions were answered. Patient verbalized understanding and agrees with plan of care. - Vital Signs Vital signs: Temp Pulse Resp BP Pulse Ox 98.7 F 100 20 120/63 96 02/04/20 12:58 02/04/20 12:58 02/04/20 12:58 02/04/20 12:58 02/04/20 12:58 Discharge - Discharge Clinical Impression: Chronic back pain Qualifiers: Back pain location: low back pain Back pain laterality: midline Sciatica presence: without sciatica Qualified Code(s): M54.5 - Low back pain; G89.29 - Other chronic pain Condition: Stable Disposition: HOME, SELF-CARE Instructions: Chronic Back Pain ([facility]) Additional Instructions: We cannot continue to give you your chronic pain medication through the emergency room. You need to get your ongoing narcotic prescriptions from your primary care physician and pain management in the future. Return to the emergency room for any new or worsening symptoms. Referrals: ROSLYN TOLEDO MD [Primary Care Provider] - Follow up as needed
== END 2020-02-04 13:24 | disposition home or self-care (01) ==
LOC: ER 12:46
DX: G89.29 Other chronic pain (principal); M54.5 Low back pain; R53.1 Weakness; E78.00 Pure hypercholesterolemia, unspecified; I10 Essential (primary) hypertension; J44.9 Chronic obstructive pulmonary disease, unspecified
CPT/HCPCS: 99284; 96372; J1885

== ENCOUNTER 2020-02-05 09:21 | Emergency (ER) | payer MEDICARE, MEDICAID ==
[2020-02-05] MEDS ORDERED: LIDOCAINE 5% (700 MG) TRANSDERMAL ADH..PATCH TP ONE (10:24)
[2020-02-05] MEDS ORDERED: KETOROLAC TROMETHAMINE INJ/PF 30 MG/1 ML SDV IM ONE (10:24)
--- NOTE | 2020-02-05 10:28 | ER Document Report ---
HPI - HPI Patient complains to provider of: Chronic back pain Time Seen by Provider: 02/05/20 09:48 Onset: Last week Onset/Duration: Persistent Quality of pain: Achy Pain Level: 5 Context: Patient presents complaining of chronic back pain that is worse today. Patient states pain is typical of chronic pain that she has daily. Patient states that she ran out of her pain medication and cannot get her prescription filled for another 6 days. Patient saw her primary doctor for this complaint 4 days ago. Patient denies any injury, fever, urinary retention or incontinence. Patient is requesting either a tramadol prescription or Tylenol with codeine prescription. Associated Symptoms: Other - Low back pain. denies: Nonproductive cough, Fever Exacerbated by: Movement Relieved by: Denies Similar symptoms previously: Yes Recently seen / treated by doctor: Yes - ROS ROS below otherwise negative: Yes Systems Reviewed and Negative: Yes All other systems reviewed and negative - CONSTITUTIONAL Constitutional: DENIES: Fever - NEURO Neurology: DENIES: Headache, Weakness - RESPIRATORY Respiratory: DENIES: Coughing - GASTROINTESTINAL Gastrointestinal: DENIES: Nausea - URINARY Urinary: DENIES: Dysuria - MUSCULOSKELETAL Musculoskeletal: REPORTS: Back Pain. DENIES: Extremity pain, Neck Pain - DERM Skin Color: Normal Skin Problems: None Past Medical History - General Information source: Patient - Social History Smoking Status: Never Smoker Chew tobacco use (# tins/day): No Frequency of alcohol use: None Drug Abuse: None Occupation: None Lives with: Alone Family History: Reviewed & Not Pertinent - Past Medical History Cardiac Medical History: Reports: Hx Hypercholesterolemia, Hx Hypertension Pulmonary Medical History: Reports: Hx COPD Endocrine Medical History: Reports: Hx Diabetes Mellitus Type 2 - "borderline" Renal/ Medical History: Reports: Hx Ovarian Cysts Malignancy Medical History: Reports: Hx Cervical Cancer - uterine cancer GI Medical History: Reports: Hx Gastroesophageal Reflux Disease Musculoskeletal Medical History: Reports Hx Arthritis - back, shoulders, and neck, Reports Hx Musculoskeletal Deformity - Chronic back pain arthritis and back shoulder or neck Psychiatric Medical History: Reports: Hx Bipolar Disorder, Hx Depression Traumatic Medical History: Reports: Hx Fractures Past Surgical History: Reports: Hx Section, Hx Gynecologic Surgery, Hx Hysterectomy, Hx Orthopedic Surgery - L shoulder, Hx Tubal Ligation - Immunizations Immunizations up to date: Yes Hx Diphtheria, Pertussis, Tetanus Vaccination: Yes Hx Pneumococcal Vaccination: 02/01/13 Vertical Provider Document - CONSTITUTIONAL Agree With Documented VS: Yes Exam Limitations: No Limitations General Appearance: WD/WN, No Apparent Distress Notes: PHYSICAL EXAMINATION: GENERAL: Well-appearing, well-nourished and in no acute distress. HEAD: Atraumatic, normocephalic. EYES: sclera clear, anicteric, conjunctiva are normal. ENT: nares patent, Moist mucous membranes. NECK: Normal range of motion, supple no lymphadenopathy LUNGS: respirations unlabored HEART: Regular rate and rhythm without murmurs EXTREMITIES: Normal range of motion, no pitting or edema. No cyanosis. Gait normal, pt ambulates without difficulty BACK: Left lower lumbar paraspinal tenderness, no midline tenderness, no deformities or step-offs. No CVA tenderness. NEUROLOGICAL: Cranial nerves grossly intact. Normal speech, normal gait. No saddle anesthesia. PSYCH: Normal mood, normal affect. SKIN: Warm, Dry, normal turgor, no rashes or lesions noted. - INFECTION CONTROL TRAVEL OUTSIDE OF THE [place] IN LAST 30 DAYS: No Course - Re-evaluation Re-evalutation: 02/05/20 10:25 Patient has a current prescription for Tylenol with codeine. Patient states that she did take her pain medicine more frequently than it was written and she ran out. Patient has an upcoming appointment with pain management. Patient states she does have a pain prescription written by her primary doctor who she saw 4 days ago for this complaint but states that she cannot pick the prescription up until Thursday. Patient drove herself here today. Patient is requesting a prescription for an additional 3 days until she can get her new pain prescription. Patient advised that no additional narcotics can be written as she currently has an active prescription for pain medication and has a prescription at the pharmacy for additional medicine. Patient encouraged to take pain medicine only how it is written. Offered to give patient a dose of medicine here, although she is driving and does not have someone who can come pick her up. The patient presents with low back pain without signs of spinal cord compression, cauda equina syndrome, infection, aneurysm, or other serious etiology. The patient is neurologically intact. Given the extremely risk of these diagnoses further testing and evaluation for these possibilities does not appear to be indicated at this time. Patient has been instructed to return if the symptoms worsen or change in any way. - Vital Signs Vital signs: Temp Pulse Resp BP Pulse Ox 98.6 F 100 16 143/75 H 99 02/05/20 09:48 02/05/20 09:29 02/05/20 09:29 02/05/20 09:29 02/05/20 09:29 Discharge - Discharge Clinical Impression: Chronic back pain Qualifiers: Back pain location: low back pain Back pain laterality: left Sciatica presence: without sciatica Qualified Code(s): M54.5 - Low back pain Condition: Stable Disposition: HOME, SELF-CARE Instructions: Chronic Back Pain ([facility]), Ice Packs ([facility]) Additional Instructions: Return immediately for any new or worsening symptoms Followup with your primary care provider, call tomorrow to make a followup appointment Take your pain medications only how they are written, do not take more medicine as this will cause you to run out of your pain prescriptions before you can get your refills Follow-up with pain management as planned Prescriptions: Lidocaine [Lidoderm 5% (700 mg) Transdermal Patch] 1 patch TP DAILY PRN #10 adh..patch PRN Reason: Referrals: ROSLYN TOLEDO MD [Primary Care Provider] - 02/06/20
[2020-02-05 10:47] VITALS: BP 134/71
== END 2020-02-05 10:53 | disposition home or self-care (01) ==
LOC: ER 09:21
DX: G89.29 Other chronic pain (principal); M54.5 Low back pain; E78.00 Pure hypercholesterolemia, unspecified; I10 Essential (primary) hypertension; J44.9 Chronic obstructive pulmonary disease, unspecified; E11.9 Type 2 diabetes mellitus without complications; Z85.41 Personal history of malignant neoplasm of cervix uteri
CPT/HCPCS: 99284; 96372; J1885; A9270

== ENCOUNTER 2020-02-09 17:23 | Emergency (ER) | payer MEDICARE, MEDICAID ==
--- NOTE | 2020-02-09 17:57 | ER Document Report ---
ED Medical Screen (RME) - General Chief Complaint: Bloody Stools Stated Complaint: RECTAL BLEEDING,ABDOMINAL PAIN Time Seen by Provider: 02/09/20 17:43 Primary Care Provider: ROSLYN TOLEDO MD [Primary Care Provider] - Follow up as needed Mode of Arrival: Wheelchair Information source: Patient Notes: Patient presents complaining of constipation for the past 3 days. Patient states that she has had some rectal bleeding today. Patient denies any lightheadedness, dizziness or chest pain. Patient denies any nausea vomiting or fever. Patient does have a history of chronic back pain, diabetes and hypertension. I have greeted and performed a rapid initial assessment of this patient. A comprehensive ED assessment and evaluation of the patient, analysis of test results and completion of the medical decision making process will be conducted by additional ED providers. TRAVEL OUTSIDE OF THE [place] IN LAST 30 DAYS: No - Related Data Allergies/Adverse Reactions: No Known Allergies Allergy (Verified 01/18/20 09:09) Home Medications: Tylenol with Codeine, Tramadol, Zofran, Potassium, Farxiga, Pramprazole, Lasix Past Medical History - Past Medical History Cardiac Medical History: Reports: Hx Hypercholesterolemia, Hx Hypertension Pulmonary Medical History: Reports: Hx COPD Endocrine Medical History: Reports: Hx Diabetes Mellitus Type 2 - "borderline" Renal/ Medical History: Reports: Hx Ovarian Cysts Malignancy Medical History: Reports: Hx Cervical Cancer - uterine cancer GI Medical History: Reports: Hx Gastroesophageal Reflux Disease Musculoskeltal Medical History: Reports Hx Arthritis - back, shoulders, and neck, Reports Hx Musculoskeletal Deformity - Chronic back pain arthritis and back shoulder or neck Psychiatric Medical History: Reports: Hx Bipolar Disorder, Hx Depression Traumatic Medical History: Reports: Hx Fractures Past Surgical History: Reports: Hx Section, Hx Gynecologic Surgery, Hx Hysterectomy, Hx Orthopedic Surgery - L shoulder, Hx Tubal Ligation - Immunizations Immunizations up to date: Yes Hx Diphtheria, Pertussis, Tetanus Vaccination: Yes Physical Exam - Vital signs Vitals: Temp Pulse Resp BP Pulse Ox 98.2 F 83 22 H 110/69 96 02/09/20 17:28 02/09/20 17:28 02/09/20 17:28 02/09/20 17:28 02/09/20 17:28 - Back Back: Tender - Lower lumbar tenderness Course - Vital Signs Vital signs: Temp Pulse Resp BP Pulse Ox 98.2 F 83 22 H 110/69 96 02/09/20 17:28 02/09/20 17:28 02/09/20 17:28 02/09/20 17:28 02/09/20 17:28 Doctor's Discharge - Discharge Referrals: ROSLYN TOLEDO MD [Primary Care Provider] - Follow up as needed
--- NOTE | 2020-02-09 18:36 | RADIOLOGY REPORT (SQ) ---
EXAM DESCRIPTION: KUB/ABDOMEN (SINGLE VIEW) IMAGES COMPLETED DATE/TIME: 02/09/2020 6:13 pm REASON FOR STUDY: constipation COMPARISON: 01/29/2020 NUMBER OF VIEWS: One view. TECHNIQUE: Supine radiographic image of the abdomen acquired. LIMITATIONS: None. FINDINGS: BOWEL GAS PATTERN: Nonobstructive bowel gas pattern. No dilated loops. CONSTIPATION: Mild CALCIFICATIONS: Probable right renal calcifications. SOFT TISSUES: No gross mass or suggestion of organomegaly. HARDWARE: None in the abdomen. BONES: No acute findings. OTHER: No other significant finding. IMPRESSION: NO RADIOGRAPHIC EVIDENCE FOR ACUTE ABDOMINAL DISEASE. Mild constipation. TECHNICAL DOCUMENTATION: JOB ID: [id number] [employer]- All Rights Reserved Reading location - IP/workstation name: [email or web address]
[2020-02-09 18:39] LABS: ABSOLUTE BASOPHILS # (AUTO) 0.1 10^3/uL (0.0-0.2); ABSOLUTE EOSINOPHILS # (AUTO) 0.2 10^3/uL (0.0-0.6); ABSOLUTE LYMPHOCYTES (AUTO) 1.7 10^3/uL (0.5-4.7); ABSOLUTE MONOCYTES (AUTO) 0.6 10^3/uL (0.1-1.4); ABSOLUTE NEUT (AUTO) 4.9 10^3/uL (1.7-8.2); BASOPHILS % (AUTO) 0.9 % (0-2); EOSINOPHILS % (AUTO) 3.2 % (0-6); HEMATOCRIT 33.1 % (36.0-47.0); LYMPHOCYTES % (AUTO) 22.2 % (13-45); MEAN CORPUSCULAR HEMOGLOBIN 25.5 pg (27.0-33.4); MEAN CORPUSCULAR HGB CONC 33.3 g/dL (32.0-36.0); MEAN CORPUSCULAR VOLUME 77 fl (80-97); MONOCYTES % (AUTO) 7.7 % (3-13); PLATELET COUNT 366 10^3/uL (150-450); RED BLOOD COUNT 4.32 10^6/uL (3.72-5.28); RED CELL DISTRIBUTION WIDTH 16.6 % (11.5-14.0); TOTAL CELLS COUNTED % (AUTO) 100 %; WHITE BLOOD COUNT 7.5 10^3/uL (4.0-10.5)
[2020-02-09 18:48] LABS: INTERNATIONAL RATION (INR) 1.16
[2020-02-09 18:49] LABS: PARTIAL THROMBOPLASTIN TIME 37.6 SEC (23.5-35.8)
[2020-02-09 18:58] LABS: ALKALINE PHOSPHATASE 69 U/L (38-126); ANION GAP 9 (5-19); ASPARTATE AMINO TRANSFERASE 33 U/L (14-36); BILIRUBIN,DIRECT 0.3 mg/dL (0.0-0.4); BILIRUBIN,TOTAL 0.5 mg/dL (0.2-1.3); BLOOD UREA NITROGEN 14 mg/dL (7-20); CALCIUM 10.1 mg/dL (8.4-10.2); CARBON DIOXIDE 25 mmol/L (22-30); CHLORIDE 98 mmol/L (98-107); GLUCOSE 117 mg/dL (75-110); POTASSIUM 3.5 mmol/L (3.6-5.0); TOTAL PROTEIN 6.9 g/dL (6.3-8.2)
[2020-02-09] MEDS ORDERED: KETOROLAC TROMETHAMINE 60 MG/2 ML SDV IM ONE (20:19)
--- NOTE | 2020-02-09 20:21 | ER Document Report ---
ED GI/ - General Chief Complaint: Constipation Stated Complaint: RECTAL BLEEDING,ABDOMINAL PAIN Time Seen by Provider: 02/09/20 17:43 Primary Care Provider: ROSLYN TOLEDO MD [Primary Care Provider] - Follow up as needed Mode of Arrival: Wheelchair Notes: Patient is an 79-year-old female that comes emergency department for chief complaint of generalized mid to lower abdominal pain and constipation for the past 4 days. Patient states she started taking an [id number] "pink laxa tive pill". She states she is taken multiple doses without any good results. She states she had a tiny bowel movement earlier with a few drops of blood, denies any other bowel movements. She denies any nausea, vomiting, fever, dysuria, or any other locations of pain. Past medical history of hysterectomy, type 2 diabetes, hypertension, chronic back pain on Tylenol 3 and tramadol. She comes from home. She states the last time she felt like this and had this problem she came in and had an enema and her symptoms resolved. TRAVEL OUTSIDE OF THE [place] IN LAST 30 DAYS: No - Related Data Allergies/Adverse Reactions: No Known Allergies Allergy (Verified 01/18/20 09:09) Home Medications: Tylenol with Codeine, Tramadol, Zofran, Potassium, Farxiga, Pramprazole, Lasix Past Medical History - General Information source: Patient - Social History Smoking Status: Never Smoker Frequency of alcohol use: None Drug Abuse: None Lives with: Family Family History: Reviewed & Not Pertinent - Past Medical History Cardiac Medical History: Reports: Hx Hypercholesterolemia, Hx Hypertension Pulmonary Medical History: Reports: Hx COPD Endocrine Medical History: Reports: Hx Diabetes Mellitus Type 2 - "borderline" Renal/ Medical History: Reports: Hx Ovarian Cysts Malignancy Medical History: Reports: Hx Cervical Cancer - uterine cancer GI Medical History: Reports: Hx Gastroesophageal Reflux Disease Musculoskeletal Medical History: Reports Hx Arthritis - back, shoulders, and neck, Reports Hx Musculoskeletal Deformity - Chronic back pain arthritis and back shoulder or neck Psychiatric Medical History: Reports: Hx Bipolar Disorder, Hx Depression Traumatic Medical History: Reports: Hx Fractures Past Surgical History: Reports: Hx Section, Hx Gynecologic Surgery, Hx Hysterectomy, Hx Orthopedic Surgery - L shoulder, Hx Tubal Ligation - Immunizations Immunizations up to date: Yes Hx Diphtheria, Pertussis, Tetanus Vaccination: Yes Hx Pneumococcal Vaccination: 02/01/13 Review of Systems - Review of Systems Constitutional: No symptoms reported EENT: No symptoms reported Cardiovascular: No symptoms reported Respiratory: No symptoms reported Gastrointestinal: See HPI Genitourinary: No symptoms reported Female Genitourinary: No symptoms reported Musculoskeletal: No symptoms reported Skin: No symptoms reported Hematologic/Lymphatic: No symptoms reported Neurological/Psychological: No symptoms reported Physical Exam - Vital signs Vitals: Temp Pulse Resp BP Pulse Ox 98.2 F 83 22 H 110/69 96 02/09/20 17:28 02/09/20 17:28 02/09/20 17:28 02/09/20 17:28 02/09/20 17:28 - Notes Notes: GENERAL: Alert, interacts well. No acute distress. HEAD: Normocephalic, atraumatic. EYES: Pupils equal, round, and reactive to light. Extraocular movements intact. ENT: Oral mucosa moist, tongue midline. Oropharynx unremarkable. Airway patent. LUNGS: Clear to auscultation bilaterally, no wheezes, rales, or rhonchi. No respiratory distress. Non-tender chest wall. HEART: Regular rate and rhythm. No murmur ABDOMEN: Soft, non-tender. Non-distended. Bowel sounds present in all 4 quadrants. RECTAL: Hemoccult positive but no grossly bloody stools, brown stools noted. No masses or concerning findings otherwise. Exam performed with Natali OBANDO at bedside. EXTREMITIES: Moves all 4 extremities spontaneously. No edema, normal radial and dorsalis pedis pulses bilaterally. No cyanosis. BACK: no cervical, thoracic, lumbar midline tenderness. No saddle anesthesia, normal distal neurovascular exam. Moves all extremities in full range of motion. NEUROLOGICAL: Alert and oriented x3. Normal speech. Cranial nerves II through XII grossly intact. Strength 5/5 in all extremities. PSYCH: Normal affect, normal mood. SKIN: Warm, dry, normal turgor. No rashes or lesions noted. Course - Re-evaluation Re-evalutation: Patient is talkative and well-appearing, she is requesting food. She is also requesting an enema. KUB does show some constipation, no obstruction. CBC, chemistry nonspecific. Patient's abdomen is soft and benign. Patient is Hemoccult positive with the stool but her stool is not grossly bloody on my evaluation. Enema was performed, large amount of hard stool was obtained with this. Afterwards patient was having cramping in the left side of the abdomen and was remedicated on her request. Patient states gratefulness for care, no additional complaints, states she will follow-up with her provider closely, states she is ready for discharge. Very low suspicion of acute abdomen or emergent abnormality based on her excellent appearance and excellent results. Stable and well-appearing at time of discharge. - Vital Signs Vital signs: Temp Pulse Resp BP Pulse Ox 98.2 F 85 16 121/76 99 02/10/20 00:24 02/10/20 00:24 02/10/20 00:24 02/10/20 00:24 02/10/20 00:24 - Laboratory Result Diagrams: 02/09/20 18:21 02/09/20 18:21 Laboratory results interpreted by me: 02/09/20 02/09/20 02/09/20 18:21 18:21 18:21 Hgb 11.0 L Hct 33.1 L MCV 77 L MCH 25.5 L RDW 16.6 H APTT 37.6 H Sodium 132.3 L Potassium 3.5 L Glucose 117 H Urine Blood 02/09/20 20:25 Hgb Hct MCV MCH RDW APTT Sodium Potassium Glucose Urine Blood LARGE H Discharge - Discharge Clinical Impression: Abdominal pain Qualifiers: Abdominal location: generalized Qualified Code(s): R10.84 - Generalized abdomin al pain Constipation Qualifiers: Constipation type: unspecified constipation type Qualified Code(s): K59.00 - Constipation, unspecified Condition: Stable Disposition: HOME, SELF-CARE Additional Instructions: You had been given an enema today for your constipation. I recommend that you continue the stool softener as prescribed for the next several days, eat plenty of fiber, drink plenty fluids, follow-up closely with your primary care provider for additional management. Return if you worsen including severe worsening abdominal pain, vomiting, fever, or any other concerning or worsening symptoms. Prescriptions: Polyethylene Glycol 3350 [Miralax Powder 17 gm/Packet] 1 packet PO DAILY PRN #1 pkg PRN Reason: Referrals: ROSLYN TOLEDO MD [Primary Care Provider] - Follow up as needed
[2020-02-09] MEDS: MINERAL OIL 30 ML UDCUP PR ONE ×2 (20:58→23:26)
[2020-02-09 22:58] LABS: APPEARANCE,URINE CLEAR; BILIRUBIN,URINE NEGATIVE (NEGATIVE); COLOR,URINE YELLOW; GLUCOSE, URINE NEGATIVE (NEGATIVE); KETONES,URINE NEGATIVE (NEGATIVE); LEUKOCYTE ESTERASE,URINE NEGATIVE (NEGATIVE); NITRITE,URINE NEGATIVE (NEGATIVE); PROTEIN,URINE NEGATIVE (NEGATIVE); URINE SPECIFIC GRAVITY 1.006; UROBILINOGEN,URINE NEGATIVE mg/dL (<2.0)
[2020-02-09] MEDS ORDERED: ACETAMINOPHEN WITH CODEINE #3 TABLET PO ONE (23:36)
[2020-02-09] MEDS ORDERED: FAMOTIDINE 20 MG TABLET PO ONE (23:36)
[2020-02-10 00:25] VITALS: BP 121/76
== END 2020-02-10 00:51 | disposition home or self-care (01) ==
LOC: ER 17:23
DX: K59.00 Constipation, unspecified (principal); R10.84 Generalized abdominal pain; K62.5 Hemorrhage of anus and rectum; R73.03 Prediabetes; J44.9 Chronic obstructive pulmonary disease, unspecified; I10 Essential (primary) hypertension; M54.9 Dorsalgia, unspecified; G89.29 Other chronic pain; Z79.899 Other long term (current) drug therapy; Z79.84 Long term (current) use of oral hypoglycemic drugs; Z79.891 Long term (current) use of opiate analgesic
CPT/HCPCS: 99284; 96372; 36415; 85025; 85610; 85730; 82270; 80053; 81001; 74018; A9270 ×3; J1885; J3490

== ENCOUNTER 2020-03-02 08:20 | Emergency (ER) | payer MEDICARE, MEDICAID ==
[2020-03-02 08:27] VITALS: BP 133/68
[2020-03-02] MEDS ORDERED: KETOROLAC TROMETHAMINE 60 MG/2 ML SDV IM ONE (10:12)
--- NOTE | 2020-03-02 11:10 | ER Document Report ---
Entered by MARY LAN SCRIBE 03/02/20 0958 Acting as scribe for:RAYMOND ORTEGA MD ED General - General Chief Complaint: Back Pain Stated Complaint: BACK PAIN Primary Care Provider: ROSLYN TOLEDO MD [Primary Care Provider] - Follow up as needed Mode of Arrival: Ambulatory Information source: Patient Notes: This 79 year old female patient presents to the ED today with complaints of chronic low back pain. Denies recent fall, injury, or trauma. She states that her PCP Dr. Toledo prescribed her Tylenol 4 which she ran out of and that her refill is x1 week away. This is the patient's 10th visit in the last x3 months with the same complaint. TRAVEL OUTSIDE OF THE [place] IN LAST 30 DAYS: No - Related Data Allergies/Adverse Reactions: No Known Allergies Allergy (Verified 03/02/20 09:23) Past Medical History - General Information source: Patient, [facility] Records - Social History Smoking Status: Never Smoker Cigarette use (# per day): No Chew tobacco use (# tins/day): No Smoking Education Provided: No Drug Abuse: None Family History: Reviewed & Not Pertinent Patient has suicidal ideation: No Patient has homicidal ideation: No - Past Medical History Cardiac Medical History: Reports: Hx Hypercholesterolemia, Hx Hypertension Pulmonary Medical History: Reports: Hx COPD Endocrine Medical History: Reports: Hx Diabetes Mellitus Type 2 - "borderline" Renal/ Medical History: Reports: Hx Ovarian Cysts Malignancy Medical History: Reports: Hx Cervical Cancer - uterine cancer GI Medical History: Reports: Hx Gastroesophageal Reflux Disease Musculoskeletal Medical History: Reports Hx Arthritis - back, shoulders, and neck, Reports Hx Musculoskeletal Deformity - Chronic back pain arthritis and back shoulder or neck Psychiatric Medical History: Reports: Hx Bipolar Disorder, Hx Depression Traumatic Medical History: Reports: Hx Fractures Past Surgical History: Reports: Hx Section, Hx Gynecologic Surgery, Hx Hysterectomy, Hx Orthopedic Surgery - L shoulder, Hx Tubal Ligation - Immunizations Immunizations up to date: Yes Hx Diphtheria, Pertussis, Tetanus Vaccination: Yes Hx Pneumococcal Vaccination: 02/01/13 Review of Systems - Review of Systems Constitutional: No symptoms reported EENT: No symptoms reported Cardiovascular: No symptoms reported Respiratory: No symptoms reported Gastrointestinal: No symptoms reported Genitourinary: No symptoms reported Female Genitourinary: No symptoms reported Musculoskeletal: See HPI Skin: No symptoms reported Hematologic/Lymphatic: No symptoms reported Neurological/Psychological: No symptoms reported -: Yes All other systems reviewed and negative Physical Exam - Vital signs Vitals: Temp Pulse Resp BP Pulse Ox 98.0 F 95 18 133/68 H 95 03/02/20 08:24 03/02/20 08:24 03/02/20 08:24 03/02/20 08:24 03/02/20 08:24 - General General appearance: Alert - HEENT Head: Normocephalic, Atraumatic Eyes: Normal Pupils: PERRL - Respiratory Respiratory status: No respiratory distress Chest status: Nontender Breath sounds: Normal Chest palpation: Normal - Cardiovascular Rhythm: Regular Heart sounds: Normal auscultation Murmur: No Friction rub: No Gallop: None auscultated - Abdominal Inspection: Normal Distension: No distension Bowel sounds: Normal Tenderness: Nontender Organomegaly: No organomegaly - Back Back: Normal, Nontender - Extremities General upper extremity: Normal inspection General lower extremity: Normal inspection. No: Edema - Neurological Neuro grossly intact: Yes Orientation: AAOx4 Tim Coma Scale Eye Opening: Spontaneous Tim Coma Scale Verbal: Oriented [place] Coma Scale Motor: Obeys Commands Tim Coma Scale Total: 15 - Psychological Associated symptoms: Normal affect, Normal mood - Skin Skin Temperature: Warm Skin Moisture: Dry Skin Color: Normal Course - Re-evaluation Re-evalutation: 03/02/20 11:07 Patient has requested to be discharged. Patient was explained that she is not receiving a narcotic prescription from this Dr. Ortega. Patient is a chronic pain patient and is on Tylenol No. 4 by her primary care provider. Patient reports that she has run out of her Tylenol No. 4 tablets 1 week prior to her allotted number of tablets. I explained the patient that she should take Tylenol [id number] as needed for pain. Also requested the patient follow- up with her primary care doctor sooner than her next appointment to develop some mechanisms of not running out of pain medication and management. - Vital Signs Vital signs: Temp Pulse Resp BP Pulse Ox 98.0 F 95 18 133/68 H 95 03/02/20 08:24 03/02/20 08:24 03/02/20 08:24 03/02/20 08:24 03/02/20 08:24 03/02/20 11:08 Vital signs stable Discharge - Discharge Clinical Impression: Chronic low back pain, Encounter for chronic pain management Condition: Stable Disposition: HOME, SELF-CARE Additional Instructions: Chronic pain managementChronic Back Pain Chronic back pain (pain persisting longer than three months) is a common problem. A medical evaluation can look for herniated disc, arthritis, osteoporosis, tumors, and infections. But at least half the time, there's no obvious treatable cause. Anxiety and depression tend to worsen back pain. Ibuprofen or other anti-inflammatory medicine can help. A heating pad, used for 15-20 minutes at a time, can ease pain. For this type of back pain, narcotic medicines should be avoided. Muscle relaxers are rarely helpful unless you're having spasms. Activity is important. Find an aerobic exercise program that your back can tolerate. Too much rest makes back pain worse. Specific back exercises are usually prescribed to strengthen the back and abdominal muscles. Often, a physical therapist can help. Avoid heavy lifting, working while bent over, or standing with both knees straight. Most back pain patients do better with a firm mattress. If new symptoms of a "herniated disc" (radiation of pain, numbness, or tingling down the back of the leg or weakness in the leg) occur, you should be re-examined. Referrals: ROSLYN TOLEDO MD [Primary Care Provider] - Follow up as needed I personally performed the services described in the documentation, reviewed and edited the documentation which was dictated to the scribe in my presence, and it accurately records my words and actions.
== END 2020-03-02 11:14 | disposition home or self-care (01) ==
LOC: ER 08:20
DX: G89.29 Other chronic pain (principal); M54.5 Low back pain; I10 Essential (primary) hypertension
CPT/HCPCS: 99284; 96372; J1885

== ENCOUNTER 2020-03-02 12:10 | Observation (INO) | payer MEDICARE, MEDICAID ==
--- NOTE | 2020-03-02 12:57 | ER Document Report ---
ED Medical Screen (RME) - General Chief Complaint: Pain All Over Stated Complaint: BODY PAIN Time Seen by Provider: 03/02/20 12:55 Primary Care Provider: ROSLYN TOLEDO MD [Primary Care Provider] - Follow up as needed TRAVEL OUTSIDE OF THE [place] IN LAST 30 DAYS: No - HPI Notes: 03/02/20 12:56 79-year-old female with past medical history for chronic pain, generalized primary OA, leg swelling, type 2 diabetes sent from her primary care doctor's office Dr. Toledo. Apparently she is to be a direct admission but come through the emergency department as no beds are available. She was here earlier this morning and was discharged home for her chronic pain. Apparently she went to see Dr. Toledo and he wants her admitted. I performed a brief medical screening exam on the patient determined that the patient needs further evaluation and management by main side provider. I have placed initial orders to help expedite care. - Related Data Allergies/Adverse Reactions: No Known Allergies Allergy (Verified 03/02/20 09:23) Past Medical History - Past Medical History Cardiac Medical History: Reports: Hx Hypercholesterolemia, Hx Hypertension Pulmonary Medical History: Reports: Hx COPD Endocrine Medical History: Reports: Hx Diabetes Mellitus Type 2 - "borderline" Renal/ Medical History: Reports: Hx Ovarian Cysts Malignancy Medical History: Reports: Hx Cervical Cancer - uterine cancer GI Medical History: Reports: Hx Gastroesophageal Reflux Disease Musculoskeltal Medical History: Reports Hx Arthritis - back, shoulders, and neck, Reports Hx Musculoskeletal Deformity - Chronic back pain arthritis and back shoulder or neck Psychiatric Medical History: Reports: Hx Bipolar Disorder, Hx Depression Traumatic Medical History: Reports: Hx Fractures Past Surgical History: Reports: Hx Section, Hx Gynecologic Surgery, Hx Hysterectomy, Hx Orthopedic Surgery - L shoulder, Hx Tubal Ligation - Immunizations Immunizations up to date: Yes Hx Diphtheria, Pertussis, Tetanus Vaccination: Yes Physical Exam - Vital signs Vitals: Temp Pulse Resp BP Pulse Ox 98.3 F 91 18 139/76 H 94 03/02/20 12:17 03/02/20 12:17 03/02/20 12:17 03/02/20 12:17 03/02/20 12:17 Course - Vital Signs Vital signs: Temp Pulse Resp BP Pulse Ox 98.3 F 91 18 139/76 H 94 03/02/20 12:17 03/02/20 12:17 03/02/20 12:17 03/02/20 12:17 03/02/20 12:17 Doctor's Discharge - Discharge Referrals: ROSLYN TOLEDO MD [Primary Care Provider] - Follow up as needed
[2020-03-02 13:58] LABS: ABSOLUTE BASOPHILS # (AUTO) 0.1 10^3/uL (0.0-0.2); ABSOLUTE EOSINOPHILS # (AUTO) 0.2 10^3/uL (0.0-0.6); ABSOLUTE LYMPHOCYTES (AUTO) 1.4 10^3/uL (0.5-4.7); ABSOLUTE MONOCYTES (AUTO) 0.6 10^3/uL (0.1-1.4); ABSOLUTE NEUT (AUTO) 5.6 10^3/uL (1.7-8.2); BASOPHILS % (AUTO) 0.7 % (0-2); HEMATOCRIT 35.8 % (36.0-47.0); HEMOGLOBIN 11.7 g/dL (12.0-15.5); LYMPHOCYTES % (AUTO) 17.5 % (13-45); MEAN CORPUSCULAR HEMOGLOBIN 25.3 pg (27.0-33.4); MEAN CORPUSCULAR HGB CONC 32.8 g/dL (32.0-36.0); MEAN CORPUSCULAR VOLUME 77 fl (80-97); MONOCYTES % (AUTO) 7.7 % (3-13); PLATELET COUNT 390 10^3/uL (150-450); RED BLOOD COUNT 4.64 10^6/uL (3.72-5.28); RED CELL DISTRIBUTION WIDTH 16.2 % (11.5-14.0); SEGMENTED NEUTROPHILS % (AUTO) 72.1 % (42-78); TOTAL CELLS COUNTED % (AUTO) 100 %; WHITE BLOOD COUNT 7.7 10^3/uL (4.0-10.5)
[2020-03-02 14:20] LABS: ALKALINE PHOSPHATASE 66 U/L (38-126); ANION GAP 11 (5-19); ASPARTATE AMINO TRANSFERASE 28 U/L (14-36); BILIRUBIN,DIRECT 0.2 mg/dL (0.0-0.4); BILIRUBIN,TOTAL 0.6 mg/dL (0.2-1.3); BLOOD UREA NITROGEN 18 mg/dL (7-20); C-REACTIVE PROTEIN 29.8 mg/L (<10.0); CALCIUM 9.5 mg/dL (8.4-10.2); CARBON DIOXIDE 28 mmol/L (22-30); CHLORIDE 95 mmol/L (98-107); GLUCOSE 145 mg/dL (75-110)
[2020-03-02 14:22] LABS: POTASSIUM 3.3 mmol/L (3.6-5.0)
[2020-03-02] MEDS: HYDROMORPHONE HCL INJ/PF 2 MG/ML AMPULE IV PRN ×2 (16:26→21:07)
[2020-03-02 16:47] LABS: ALBUMIN 4.2 g/dL (3.5-5.0); ALKALINE PHOSPHATASE 68 U/L (38-126); ASPARTATE AMINO TRANSFERASE 30 U/L (14-36); BILIRUBIN,DIRECT 0.2 mg/dL (0.0-0.4); BILIRUBIN,TOTAL 0.6 mg/dL (0.2-1.3); TOTAL PROTEIN 7.5 g/dL (6.3-8.2)
[2020-03-02 19:07] LABS: APPEARANCE,URINE SLIGHTLY-CLOUDY; BILIRUBIN,URINE NEGATIVE (NEGATIVE); GLUCOSE, URINE NEGATIVE (NEGATIVE); KETONES,URINE NEGATIVE (NEGATIVE); LEUKOCYTE ESTERASE,URINE TRACE (NEGATIVE); NITRITE,URINE NEGATIVE (NEGATIVE); PROTEIN,URINE 30 mg/dL (NEGATIVE); URINE SPECIFIC GRAVITY 1.023; UROBILINOGEN,URINE NEGATIVE mg/dL (<2.0)
[2020-03-02 19:08] LABS: COLOR,URINE YELLOW
--- NOTE | 2020-03-02 22:17 | PDOC H&P ---
History of Present Illness Admission Date/PCP: 03/02/20 14:07 ROSLYN TOLEDO MD History of Present Illness: ALANA ROMERO is a 79 year old female, she has a history of generalized ost eoarthritis with chronic pain syndrome, type 2 diabetes mellitus, she came to the office for evaluation of generalized body pains, she complains of pains in multiple joints, she has osteoarthritis affecting multiple joints. She was supposed to be on Tylenol with codeine for the control of pain, she is admitted to the hospital for observation for the control of intractable pain due to generalized osteoarthritis. Past Medical History Cardiac Medical History: Reports: Hyperlipidema, Hypertension Pulmonary Medical History: Reports: Chronic Obstructive Pulmonary Disease (COPD) Endocrine Medical History: Reports: Diabetes Mellitus Type 2 - "borderline" Malignancy Medical History: Reports: Cervical Cancer - uterine cancer GI Medical History: Reports: Gastroesophageal Reflux Disease Musculoskeltal Medical History: Reports: Arthritis - back, shoulders, and neck Psychiatric Medical History: Reports: Bipolar Disorder, Depression Hematology: Denies: Anemia, Bleeding Tendencies Past Surgical History Past Surgical History: Reports: Section, Hysterectomy, Orthopedic Surgery - L shoulder, Tubal Ligation Social History Smoking Status: Never Smoker Electronic Cigarette use?: No Frequency of Alcohol Use: None Hx Recreational Drug Use: No Drugs: None Hx Prescription Drug Abuse: No Family History Family History: Reviewed & Not Pertinent Parental Family History Reviewed: Yes Children Family History Reviewed: Yes Sibling(s) Family History Reviewed.: Yes Medication/Allergy Home Medications: Megestrol Acetate [Megace Rika 400 mg/10 ml Udcup] 10 ml PO BID 11/23/19 Dapagliflozin Propanediol [Farxiga] 10 mg PO DAILY #90 tablet 11/24/19 Furosemide [Lasix 20 mg Tablet] 20 mg PO QAM #10 tablet 01/06/20 Metolazone [Zaroxolyn 5 mg Tablet] 5 mg PO DAILY 03/02/20 Mirtazapine 45 mg PO QHS 03/02/20 Omeprazole 20 mg PO DAILY 03/02/20 Potassium Chloride 20 meq PO DAILY 03/02/20 Pramipexole Di-HCl [Mirapex 0.5 Mg Tablet] 0.5 mg PO TID 03/02/20 Tramadol HCl [Ultram 50 mg Tablet] 50 mg PO Q6HP PRN 03/02/20 Allergies/Adverse Reactions: No Known Allergies Allergy (Verified 03/02/20 09:23) Review of Systems Constitutional: ABSENT: chills, fever(s), headache(s), weight gain, weight loss Eyes: ABSENT: visual disturbances Ears: ABSENT: hearing changes Cardiovascular: ABSENT: chest pain, dyspnea on exertion, edema, orthropnea, palpitations Respiratory: ABSENT: cough, hemoptysis Gastrointestinal: ABSENT: abdominal pain, constipation, diarrhea, hematemesis, hematochezia, nausea, vomiting Genitourinary: ABSENT: dysuria, hematuria Musculoskeletal: PRESENT: back pain. ABSENT: joint swelling Integumentary: ABSENT: rash, wounds Neurological: ABSENT: abnormal gait, abnormal speech, confusion, dizziness, foc al weakness, syncope Psychiatric: ABSENT: anxiety, depression, homidical ideation, suicidal ideation Endocrine: ABSENT: cold intolerance, heat intolerance, menstrual abnormalities, polydipsia, polyuria Hematologic/Lymphatic: ABSENT: easy bleeding, easy bruising, lymphadenopathy Physical Exam Vital Signs: Temp Pulse Resp BP Pulse Ox 97.7 F 87 18 113/50 L 95 03/02/20 19:24 03/02/20 19:24 03/02/20 19:24 03/02/20 19:24 03/02/20 19:24 Intake & Output 03/01/20 03/02/20 03/03/20 06:59 06:59 06:59 Intake Total 461 Output Total 70 Balance 391 Weight 79.4 kg General appearance: PRESENT: no acute distress Head exam: PRESENT: atraumatic, normocephalic Eye exam: PRESENT: PERRLA Ear exam: PRESENT: normal external ear exam Mouth exam: PRESENT: moist, tongue midline Neck exam: PRESENT: full ROM Respiratory exam: PRESENT: clear to auscultation [place]ak Cardiovascular exam: PRESENT: RRR, +S1, +S2 Pulses: PRESENT: normal dorsalis pedis pul, +2 pedal pulses bilateral Vascular exam: PRESENT: normal capillary refill GI/Abdominal exam: PRESENT: normal bowel sounds, soft Rectal exam: PRESENT: deferred Neurological exam: PRESENT: alert, CN II-XII grossly intact Psychiatric exam: PRESENT: appropriate affect, normal mood Skin exam: PRESENT: dry, intact, warm Results Laboratory Results: 03/02/20 13:30 03/02/20 13:30 03/02/20 03/02/2003/02/20 13:30 13:30 13:30 WBC 7.7 RBC 4.64 Hgb 11.7 L Hct 35.8 L MCV 77 L MCH 25.3 L MCHC 32.8 RDW 16.2 H Plt Count 390 Seg Neutrophils % 72.1 Sodium 134.0 L Potassium 3.3 L Chloride 95 L Carbon Dioxide 28 Anion Gap 11 BUN 18 Creatinine 0.59 Est GFR ( Amer) > 60 Glucose 145 H Calcium 9.5 Total Bilirubin 0.6 AST 28 Alkaline Phosphatase 66 C-Reactive Protein 29.8 H Total Protein 7.0 Albumin 4.0 TSH 1.26 Free T4 Urine Color Urine Appearance Urine pH Ur Specific [place] Urine Protein Urine Glucose (UA) Urine Ketones Urine Blood Urine Nitrite Ur Leukocyte Esterase Urine WBC (Auto) Urine RBC (Auto) 03/02/20 03/02/20 03/02/20 15:54 15:54 18:45 WBC RBC Hgb Hct MCV MCH MCHC RDW Plt Count Seg Neutrophils % Sodium Potassium Chloride Carbon Dioxide Anion Gap BUN Creatinine Est GFR ( Amer) Glucose Calcium Total Bilirubin 0.6 AST 30 Alkaline Phosphatase 68 C-Reactive Protein Total Protein 7.5 Albumin 4.2 TSH Free T4 1.35 Urine Color YELLOW Urine Appearance SLIGHTLY-CLOUDY Urine pH 5.0 Ur Specific [place] 1.023 Urine Protein 30 H Urine Glucose (UA) NEGATIVE Urine Ketones NEGATIVE Urine Blood NEGATIVE Urine Nitrite NEGATIVE Ur Leukocyte Esterase TRACE H Urine WBC (Auto) 10 Urine RBC (Auto) 2 Assessment & Plan - Diagnosis (1) Generalized osteoarthritis Is this a current diagnosis for this admission?: Yes Plan: She has generalized osteoarthritis with chronic pain, admitted for observation for pain control (2) Intractable pain Is this a current diagnosis for this admission?: Yes (3) T2DM (type 2 diabetes mellitus) Qualifiers: Diabetes mellitus [employer] insulin use: without [employer] use Diabetes mellitus complication status: with neurologic complications Diabetes mellitus complication detail: with polyneuropathy Qualified Code(s): E11.42 - Type 2 diabetes mellitus with diabetic polyneuropathy Is this a current diagnosis for this admission?: Yes - Time Time Spent: Greater than 70 Minutes Medications reviewed and adjusted accordingly: Yes Anticipated Discharge Disposition: Home, Self Care Anticipated Discharge Timeframe: within 72 hours
[2020-03-03] MEDS: HYDROMORPHONE HCL INJ/PF 2 MG/ML AMPULE IV PRN ×6 (01:25→23:08)
[2020-03-04] MEDS: HYDROMORPHONE HCL INJ/PF 2 MG/ML AMPULE IV PRN ×6 (01:52→23:04)
[2020-03-04] MEDS ORDERED: (PENDING PHARMACY ID) (Dapagliflozin Propanediol [Farxiga] 10 MG) PO SCH (12:45)
[2020-03-04 15:24] LABS: ALBUMIN 3.4 g/dL (3.5-5.0); ALKALINE PHOSPHATASE 53 U/L (38-126); ANION GAP 11 (5-19); ASPARTATE AMINO TRANSFERASE 25 U/L (14-36); BILIRUBIN,DIRECT 0.2 mg/dL (0.0-0.4); BILIRUBIN,TOTAL 0.4 mg/dL (0.2-1.3); BLOOD UREA NITROGEN 16 mg/dL (7-20); CALCIUM 9.4 mg/dL (8.4-10.2); CARBON DIOXIDE 21 mmol/L (22-30); CHLORIDE 102 mmol/L (98-107); GLUCOSE 150 mg/dL (75-110); TOTAL PROTEIN 6.3 g/dL (6.3-8.2)
[2020-03-04 15:28] LABS: POTASSIUM 3.5 mmol/L (3.6-5.0)
[2020-03-04] MEDS ORDERED: MEGESTROL ACETATE SUSP 400 MG/10 ML UDCUP ONE (19:11)
[2020-03-04] MEDS: MEGESTROL ACETATE SUSP 400 MG/10 ML UDCUP PO SCH (19:24)
[2020-03-04] MEDS ORDERED: MIRTAZAPINE 15 MG TABLET PO SCH (22:00)
[2020-03-04] MEDS ORDERED: (PENDING PHARMACY ID) (Mirtazapine [Mirtazapine] 45 MG) PO SCH (22:00)
[2020-03-05] MEDS: HYDROMORPHONE HCL INJ/PF 2 MG/ML AMPULE IV PRN ×3 (03:31→11:27)
[2020-03-05] MEDS ORDERED: PANTOPRAZOLE SODIUM 20 MG TABLET.DR PO SCH (10:00)
[2020-03-05] MEDS ORDERED: POTASSIUM CHLORIDE 10 MEQ TABLET.ER PO SCH (10:00)
[2020-03-05] MEDS: MEGESTROL ACETATE SUSP 400 MG/10 ML UDCUP PO SCH (12:39)
[2020-03-05 12:50] VITALS: BP 121/70
--- NOTE | 2020-03-06 02:43 | PDOC DISCHARGE SUMMARY ---
Impression - Admit/DC Date/PCP Admission Date/Primary Care Provider: 03/02/20 14:07 ROSLYN TOLEDO MD Discharge Date: 03/05/20 - Discharge Diagnosis (1) Intractable pain Is this a current diagnosis for this admission?: Yes (2) Generalized osteoarthritis Is this a current diagnosis for this admission?: Yes (3) T2DM (type 2 diabetes mellitus) Is this a current diagnosis for this admission?: Yes - Additional Information Referrals: ROSLYN TOLEDO MD [Primary Care Provider] - Follow up as needed Home Medications: Megestrol Acetate [Megace Rika 400 mg/10 ml Udcup] 10 ml PO BID 11/23/19 Dapagliflozin Propanediol [Farxiga] 10 mg PO DAILY #90 tablet 11/24/19 Furosemide [Lasix 20 mg Tablet] 20 mg PO QAM #10 tablet 01/06/20 Metolazone [Zaroxolyn 5 mg Tablet] 5 mg PO DAILY 03/02/20 Mirtazapine 45 mg PO QHS 03/02/20 Omeprazole 20 mg PO DAILY 03/02/20 Potassium Chloride 20 meq PO DAILY 03/02/20 Pramipexole Di-HCl [Mirapex 0.5 Mg Tablet] 0.5 mg PO TID 03/02/20 Tramadol HCl [Ultram 50 mg Tablet] 50 mg PO Q6HP PRN 03/02/20 History of Present Illiness History of Present Illness: ALANA ROMERO is a 79 year old female, she has a history of generalized osteoarthritis with chronic pain syndrome, type 2 diabetes mellitus, she came to the office for evaluation of generalized body pains, she complains of pains in multiple joints, she has osteoarthritis affecting multiple joints. She was supposed to be on Tylenol with codeine for the control of pain, she is admitted to the hospital for observation for the control of intractable pain due to generalized osteoarthritis. Hospital Course Hospital Course: Patient was admitted for the management of intractable pain due to generalized osteoarthritis, lower extremity edema, she was treated with IV Dilaudid, she was brought in for observation Physical Exam Vital Signs: Temp Pulse Resp BP Pulse Ox 97.4 F 90 19 121/70 96 03/05/20 12:50 03/05/20 12:50 03/05/20 12:50 03/05/20 12:50 03/05/20 12:50 Intake & Output 03/04/20 03/05/20 03/06/20 06:59 06:59 06:59 Intake Total 1485 Balance 1485 Weight 75.8 kg General appearance: PRESENT: no acute distress Eye exam: PRESENT: PERRLA Respiratory exam: PRESENT: clear to auscultation isak Cardiovascular exam: PRESENT: +S1, +S2 GI/Abdominal exam: PRESENT: soft Neurological exam: PRESENT: alert Results Laboratory Results: WBC 7.7 10^3/uL (4.0-10.5) 03/02/20 13:30 RBC 4.64 10^6/uL (3.72-5.28) 03/02/20 13:30 Hgb 11.7 g/dL (12.0-15.5) L 03/02/20 13:30 Hct 35.8 % (36.0-47.0) L 03/02/20 13:30 MCV 77 fl (80-97) L 03/02/20 13:30 MCH 25.3 pg (27.0-33.4) L 03/02/20 13:30 MCHC 32.8 g/dL (32.0-36.0) 03/02/20 13:30 RDW 16.2 % (11.5-14.0) H 03/02/20 13:30 Plt Count 390 10^3/uL (150-450) 03/02/20 13:30 Lymph % (Auto) 17.5 % (13-45) 03/02/20 13:30 [place] % (Auto) 7.7 % (3-13) 03/02/20 13:30 Eos % (Auto) 2.0 % (0-6) 03/02/20 13:30 Baso % (Auto) 0.7 % (0-2) 03/02/20 13:30 Absolute Neuts (auto) 5.6 10^3/uL (1.7-8.2) 03/02/20 13:30 Absolute Lymphs (auto) 1.4 10^3/uL (0.5-4.7) 03/02/20 13:30 Absolute Monos (auto) 0.6 10^3/uL (0.1-1.4) 03/02/20 13:30 Absolute Eos (auto) 0.2 10^3/uL (0.0-0.6) 03/02/20 13:30 Absolute Basos (auto) 0.1 10^3/uL (0.0-0.2) 03/02/20 13:30 Seg Neutrophils % 72.1 % (42-78) 03/02/20 13:30 Sodium 134.4 mmol/L (137-145) L 03/04/20 14:55 Potassium 3.5 mmol/L (3.6-5.0) L 03/04/20 14:55 Chloride 102 mmol/L (98-107) 03/04/20 14:55 Carbon Dioxide 21 mmol/L (22-30) L 03/04/20 14:55 Anion Gap 11 (5-19) 03/04/20 14:55 BUN 16 mg/dL (7-20) 03/04/20 14:55 Creatinine 0.49 mg/dL (0.52-1.25) L 03/04/20 14:55 Est GFR ( Amer) > 60 (>60) 03/04/20 14:55 Est GFR (MDRD) Non-Af > 60 (>60) 03/04/20 14:55 Glucose 150 mg/dL (75-110) H 03/04/20 14:55 Hemoglobin A1c % 6.6 % (4.7-6.0) H 03/02/20 15:07 Calcium 9.4 mg/dL (8.4-10.2) 03/04/20 14:55 Total Bilirubin 0.4 mg/dL (0.2-1.3) 03/04/20 14:55 Direct Bilirubin 0.2 mg/dL (0.0-0.4) 03/04/20 14:55 Neonat Total Bilirubin Not Reportable 03/04/20 14:55 Neonat Direct Bilirubin Not Reportable 03/04/20 14:55 Neonat Indirect Bili Not Reportable 03/04/20 14:55 AST 25 U/L (14-36) 03/04/20 14:55 ALT 17 U/L (<35) 03/04/20 14:55 Alkaline Phosphatase 53 U/L (38-126) 03/04/20 14:55 C-Reactive Protein 29.8 mg/L (<10.0) H 03/02/20 13:30 Total Protein 6.3 g/dL (6.3-8.2) 03/04/20 14:55 Albumin 3.4 g/dL (3.5-5.0) L 03/04/20 14:55 TSH 1.26 uIU/mL (0.47-4.68) 03/02/20 13:30 Free T4 1.35 ng/dL (0.78-2.19) 03/02/20 15:54 Urine Color YELLOW 03/02/20 18:45 Urine Appearance SLIGHTLY-CLOUDY 03/02/20 18:45 Urine pH 5.0 (5.0-9.0) 03/02/20 18:45 Ur Specific [place] 1.023 03/02/20 18:45 Urine Protein 30 mg/dL (NEGATIVE) H 03/02/20 18:45 Urine Glucose (UA) NEGATIVE mg/dL (NEGATIVE) 03/02/20 18:45 Urine Ketones NEGATIVE mg/dL (NEGATIVE) 03/02/20 18:45 Urine Blood NEGATIVE (NEGATIVE) 03/02/20 18:45 Urine Nitrite NEGATIVE (NEGATIVE) 03/02/20 18:45 Urine Bilirubin NEGATIVE (NEGATIVE) 03/02/20 18:45 Urine Urobilinogen NEGATIVE mg/dL (<2.0) 03/02/20 18:45 Ur Leukocyte Esterase TRACE (NEGATIVE) H 03/02/20 18:45 Urine WBC (Auto) 10 /HPF 03/02/20 18:45 Urine RBC (Auto) 2 /HPF 03/02/20 18:45 U Hyaline Cast (Auto) 3 /LPF 03/02/20 18:45 Squamous Epi Cells Auto 9 /HPF 03/02/20 18:45 Urine Mucus (Auto) MANY /LPF 03/02/20 18:45 Urine Ascorbic Acid NEGATIVE (NEGATIVE) 03/02/20 18:45 Rheumatoid Factor < 8.6 IU/mL (<12.0) 03/02/20 13:30 Stroke Is this a Stroke Patient?: No Acute Heart Failure Is this a Heart Failure Patient?: No
== END 2020-03-05 12:15 | disposition left against medical advice (07) ==
LOC: ER 12:10 → EH 14:07 → 4N 15:13
PROVIDERS: ADMIT Internal Medicine; ATTEND Internal Medicine
DX: M15.9 Polyosteoarthritis, unspecified (principal); G89.4 Chronic pain syndrome; E11.42 Type 2 diabetes mellitus with diabetic polyneuropathy; I10 Essential (primary) hypertension; R60.0 Localized edema; Z79.899 Other long term (current) drug therapy; Z85.41 Personal history of malignant neoplasm of cervix uteri; Z85.42 Personal history of malignant neoplasm of other parts of uterus; Z79.84 Long term (current) use of oral hypoglycemic drugs; Z87.81 Personal history of (healed) traumatic fracture
CPT/HCPCS: 99284; 99285; 96372; 36415 ×2; 84439; 84443; 85025; 86431; 87070; 86140; 80053 ×2; 81001; 83036; G0378 ×4; J1885; A9270 ×4; J1170 ×4; J3490

== ENCOUNTER 2020-03-24 16:54 | Emergency (ER) | payer MEDICARE, MEDICAID ==
[2020-03-24] MEDS ORDERED: ACETAMINOPHEN 325 MG TABLET PO ONE (17:24)
--- NOTE | 2020-03-24 17:27 | ER Document Report ---
ED Medical Screen (RME) - General Chief Complaint: Back Pain Stated Complaint: FALL/BACK PAIN Time Seen by Provider: 03/24/20 17:19 Primary Care Provider: ROSLYN TOLEDO MD [Primary Care Provider] - Follow up as needed Mode of Arrival: Wheelchair Information source: Patient Notes: HPI; 79-year-old female with a history of chronic back pain seen in the emergency room multiple times for chronic back pain always requesting narcotics which she gets from her primary care physician. Presents to the emergency room after a fall at home. Patient states she went to stand her foot twisted she fell backward landing on her back, her right upper arm and hitting her head. She denies any loss of consciousness. States she was unable to ambulate and had to use her life alert button to alert EMS. Complains of a headache but denies any nausea or vomiting. Denies any use of blood thinners. PE: Alert and oriented x3. Tenderness with small hematoma noted to the posterior scalp. Cervical spine is nontender to palpation. Painful range of motion with lateral movement to the neck. Lungs: Clear to auscultation without rales, rhonchi, wheezes. Heart: Regular rate rhythm without murmurs, rubs, gallops. Tenderness on palpation from L4-S1. Tenderness to the bilateral sciatic notches. Unable to do full exam in triage. I have greeted and performed a rapid initial assessment of this patient. A comprehensive ED assessment and evaluation of the patient, analysis of test results and completion of the medical decision making process will be conducted by additional ED providers. I have specifically instructed the patient or family members with the patient to immediately return to any nursing staff should anything change in the patient's condition or with their chief complaint. TRAVEL OUTSIDE OF THE [place] IN LAST 30 DAYS: No - Related Data Allergies/Adverse Reactions: No Known Allergies Allergy (Verified 03/02/20 09:23) Past Medical History - Past Medical History Cardiac Medical History: Reports: Hx Hypercholesterolemia, Hx Hypertension Pulmonary Medical History: Reports: Hx COPD Endocrine Medical History: Reports: Hx Diabetes Mellitus Type 2 - "borderline" Renal/ Medical History: Reports: Hx Ovarian Cysts Malignancy Medical History: Reports: Hx Cervical Cancer - uterine cancer GI Medical History: Reports: Hx Gastroesophageal Reflux Disease Musculoskeltal Medical History: Reports Hx Arthritis - back, shoulders, and neck, Reports Hx Musculoskeletal Deformity - Chronic back pain arthritis and back shoulder or neck Psychiatric Medical History: Reports: Hx Bipolar Disorder, Hx Depression Traumatic Medical History: Reports: Hx Fractures Past Surgical History: Reports: Hx Section, Hx Gynecologic Surgery, Hx Hysterectomy, Hx Orthopedic Surgery - L shoulder, Hx Tubal Ligation - Immunizations Immunizations up to date: Yes Hx Diphtheria, Pertussis, Tetanus Vaccination: Yes Physical Exam - Vital signs Vitals: Temp Pulse Resp BP Pulse Ox 97.8 F 89 16 144/71 H 98 03/24/20 17:10 03/24/20 17:10 03/24/20 17:10 03/24/20 17:10 03/24/20 17:10 Course - Vital Signs Vital signs: Temp Pulse Resp BP Pulse Ox 97.8 F 89 16 144/71 H 98 03/24/20 17:10 03/24/20 17:10 03/24/20 17:10 03/24/20 17:10 03/24/20 17:10 Doctor's Discharge - Discharge Referrals: ROSLYN TOLEDO MD [Primary Care Provider] - Follow up as needed
--- NOTE | 2020-03-24 18:15 | RADIOLOGY REPORT (SQ) ---
EXAM DESCRIPTION: CT HEAD WITHOUT IMAGES COMPLETED DATE/TIME: 03/24/2020 5:53 pm REASON FOR STUDY: head trauma COMPARISON: 12/04/2018 TECHNIQUE: Axial images acquired through the brain without intravenous contrast. Images reviewed wit h bone, brain and subdural windows. Images stored on PACS. All CT scanners at this facility use dose modulation, iterative reconstruction, and/or weight based d osing when appropriate to reduce radiation dose to as low as reasonably achievable (ALARA). [facility]: Dose Right [facility]: CareDose [facility]: Dose Right [facility]: Teradose 4D [facility]: Smart [employer] RADIATION DOSE: CT Rad equipment meets quality standard of care and radiation dose reduction techniq ues were employed. CTDIvol: 53.2 mGy. DLP: 1070 mGy-cm.. LIMITATIONS: None. FINDINGS: VENTRICLES: Normal size and contour. CEREBRUM: No masses. No hemorrhage. No midline shift. Age appropriate white matter. No evidence for a cute infarction. CEREBELLUM: No masses. No hemorrhage. No alteration of density. No evidence for acute infarction. EXTRA-AXIAL SPACES: No fluid collections. ORBITS AND GLOBE: No intra- or extraconal masses. Normal contour of globe without masses. CALVARIUM: No fracture. PARANASAL SINUSES: No fluid or mucosal thickening. SOFT TISSUES: No mass or hematoma. OTHER: No other significant finding. IMPRESSION: NO ACUTE INTRACRANIAL FINDINGS. EVIDENCE OF ACUTE STROKE: NO. TECHNICAL DOCUMENTATION: JOB ID: [id number] [place]-72 Quality ID # [id number]: Final reports with documentation of one or more dose reduction techniques (e.g., Au tomated exposure control, adjustment of the mA and/or kV according to patient size, use of iterative reconstruction technique) 2010 [employer] All Rights Reserved Reading location - IP/workstation name: [email or web address]
--- NOTE | 2020-03-24 18:19 | RADIOLOGY REPORT (SQ) ---
EXAM DESCRIPTION: HUMERUS RIGHT IMAGES COMPLETED DATE/TIME: 03/24/2020 5:51 pm REASON FOR STUDY: injury COMPARISON: None. EXAM PARAMETERS: NUMBER OF VIEWS: Two view. TECHNIQUE: AP and lateral radiographic images acquired of the right humerus LIMITATIONS: None. FINDINGS: MINERALIZATION: Normal. BONES: No acute fracture or dislocation. Moderate AC joint arthrosis. 9 mm undersurface acromial sp ur. No worrisome bone lesions. JOINTS: No effusion. SOFT TISSUES: No significant soft tissue swelling. No radiopaque foreign body. OTHER: No other significant finding. IMPRESSION: NO FRACTURE. TECHNICAL DOCUMENTATION: JOB ID: [id number] [place]-72 2010 [employer]- All Rights Reserved Reading location - IP/workstation name: [email or web address]
--- NOTE | 2020-03-24 18:21 | RADIOLOGY REPORT (SQ) ---
EXAM DESCRIPTION: L SPINE WHOLE IMAGES COMPLETED DATE/TIME: 03/24/2020 5:51 pm REASON FOR STUDY: injury COMPARISON: 01/02/2020 NUMBER OF VIEWS: Five views including obliques. TECHNIQUE: AP, lateral, oblique, and sacral radiographic images acquired of the lumbar spine. LIMITATIONS: None. FINDINGS: MINERALIZATION: Normal. SEGMENTATION: Normal. No transitional anatomy. ALIGNMENT: Similar mild levo scoliosis. VERTEBRAE: Similar T11 chronic compression. No acute fracture identified. No worrisome bone lesion. DISCS: Multilevel disc space narrowing with osteophytes. POSTERIOR ELEMENTS: Pedicles and facets are intact. No pars defect or posterior arch defects. Facet arthropathy is present. HARDWARE: None in the spine. PARASPINAL SOFT TISSUES: Normal. PELVIS: Intact as visualized. No fractures or worrisome bone lesions. SI joints intact. OTHER: No other significant finding. IMPRESSION: Similar T11 chronic compression. No acute fracture identified. TECHNICAL DOCUMENTATION: JOB ID: [id number] [place]-72 2010 [employer]- All Rights Reserved Reading location - IP/workstation name: [email or web address]
[2020-03-24 18:25] LABS: APPEARANCE,URINE CLEAR; BILIRUBIN,URINE NEGATIVE (NEGATIVE); COLOR,URINE STRAW; GLUCOSE, URINE 50 mg/dL (NEGATIVE); KETONES,URINE NEGATIVE (NEGATIVE); LEUKOCYTE ESTERASE,URINE NEGATIVE (NEGATIVE); NITRITE,URINE NEGATIVE (NEGATIVE); PROTEIN,URINE NEGATIVE (NEGATIVE); URINE SPECIFIC GRAVITY 1.005; UROBILINOGEN,URINE NEGATIVE mg/dL (<2.0)
--- NOTE | 2020-03-24 18:57 | RADIOLOGY REPORT (SQ) ---
EXAM DESCRIPTION: CT CERVICAL SPINE WITHOUT IMAGES COMPLETED DATE/TIME: 03/24/2020 5:53 pm REASON FOR STUDY: head trauma COMPARISON: 10/04/2018 TECHNIQUE: Axial images acquired through the cervical spine without intravenous contrast. Images re viewed with lung, soft tissue and bone windows. Reconstructed coronal and sagittal MPR images review ed. Images stored on PACS. All CT scanners at this facility use dose modulation, iterative reconstruction, and/or weight based d osing when appropriate to reduce radiation dose to as low as reasonably achievable (ALARA). [facility]: Dose Right [facility]: CareDose [facility]: Dose Right [facility]: Teradose 4D [facility]: Smart [employer] RADIATION DOSE: CT Rad equipment meets quality standard of care and radiation dose reduction techniq ues were employed. CTDIvol: 20.4 mGy. DLP: 373 mGy-cm. mGy. LIMITATIONS: None. FINDINGS: ALIGNMENT: Slightly increased anterolisthesis of C2 on C3 measuring approximately 4 mm, pr eviously 2.8 mm. MINERALIZATION: Normal. VERTEBRAL BODIES: No fractures or dislocation. DISCS: Multilevel disc space narrowing with osteophytes. FACETS, LATERAL MASSES, POSTERIOR ELEMENTS: Significantly increased right C2-3 Facet arthropathy with some erosive changes that were not present on the 2019 exam. No acute fractures. No dislocation. No acute findings. HARDWARE: None in the spine. VISUALIZED RIBS: No fractures. LUNG APICES AND SOFT TISSUES: No significant or acute findings. OTHER: No other significant finding. IMPRESSION: No acute fractures. Significantly increased right C2-3 Facet arthropathy with some erosi ve changes that were not present on the 2019 exam. Slightly increased anterolisthesis of C2 on C3 me asuring approximately 4 mm, previously 2.8 mm. TECHNICAL DOCUMENTATION: JOB ID: [id number] [place]-72 Quality ID # [id number]: Final reports with documentation of one or more dose reduction techniques (e.g., Au tomated exposure control, adjustment of the mA and/or kV according to patient size, use of iterative reconstruction technique) 2010 [employer]- All Rights Reserved Reading location - IP/workstation name: [email or web address]
--- NOTE | 2020-03-24 22:08 | ER Document Report ---
ED General - General Chief Complaint: Fall Stated Complaint: FALL/BACK PAIN Time Seen by Provider: 03/24/20 17:19 Primary Care Provider: ROSLYN TOLEDO MD [Primary Care Provider] - Follow up as needed Mode of Arrival: Wheelchair TRAVEL OUTSIDE OF THE [place] IN LAST 30 DAYS: No - HPI Notes: 79-year-old female presents after she fell at home. Patient states that her foot twisted which caused her to fall backwards. States that she hit her head and was unable to get up off the floor, so she used her life alert bracelet to call for EMS. She states that she did hit her head. She complains of pain to the back of her head, right arm pain and low back pain. She has a history of chronic low back pain and it is increased from its baseline, described as "real bad". - Related Data Allergies/Adverse Reactions: No Known Allergies Allergy (Verified 03/02/20 09:23) Past Medical History - General Information source: Patient - Social History Smoking Status: Never Smoker Frequency of alcohol use: None Drug Abuse: None Family History: Reviewed & Not Pertinent Patient has homicidal ideation: No - Past Medical History Cardiac Medical History: Reports: Hx Hypercholesterolemia, Hx Hypertension Pulmonary Medical History: Reports: Hx COPD Endocrine Medical History: Reports: Hx Diabetes Mellitus Type 2 - "borderline" Renal/ Medical History: Reports: Hx Ovarian Cysts Malignancy Medical History: Reports: Hx Cervical Cancer - uterine cancer GI Medical History: Reports: Hx Gastroesophageal Reflux Disease Musculoskeletal Medical History: Reports Hx Arthritis - back, shoulders, and neck, Reports Hx Musculoskeletal Deformity - Chronic back pain arthritis and back shoulder or neck Psychiatric Medical History: Reports: Hx Bipolar Disorder, Hx Depression Traumatic Medical History: Reports: Hx Fractures Past Surgical History: Reports: Hx Section, Hx Gynecologic Surgery, Hx Hysterectomy, Hx Orthopedic Surgery - L shoulder, Hx Tubal Ligation - Immunizations Immunizations up to date: Yes Hx Diphtheria, Pertussis, Tetanus Vaccination: Yes Hx Pneumococcal Vaccination: 02/01/13 Review of Systems - Review of Systems Constitutional: No symptoms reported EENT: No symptoms reported Cardiovascular: No symptoms reported Respiratory: No symptoms reported Gastrointestinal: No symptoms reported Genitourinary: No symptoms reported Female Genitourinary: No symptoms reported Musculoskeletal: See HPI Skin: Other - No wound Hematologic/Lymphatic: No symptoms reported Neurological/Psychological: denies: Weakness, Numbness Physical Exam - Vital signs Vitals: Temp Pulse Resp BP Pulse Ox 97.8 F 89 16 144/71 H 98 03/24/20 17:10 03/24/20 17:10 03/24/20 17:10 03/24/20 17:10 03/24/20 17:10 - General General appearance: Appears well, Alert - HEENT Head: Normocephalic, Atraumatic. No: Abrasions, Granger's sign, Ecchymosis, [place]'s eyes Extraocular movements intact: Yes Pupils: PERRL Neck: Other - Full range of motion, no midline tenderness - Respiratory Breath sounds: Normal - Cardiovascular Rhythm: Regular Heart sounds: Normal auscultation - Abdominal Tenderness: Nontender - Back Back: Other - No ecchymosis or wounds. No midline tenderness. Tenderness in various locations to lateral aspects of lumbar back - Extremities General upper extremity: Normal ROM General lower extremity: Nontender, Normal ROM Arm: Nontender - Right arm, full range of motion of all joints Hip: Nontender - Neurological Neuro grossly intact: Yes Notes: Strength symmetric between lower extremities, sensation intact - Psychological Associated symptoms: Other - Pleasant - Skin Skin Temperature: Warm Course - Re-evaluation Re-evalutation: 79-year-old female presents after a fall from standing, she does a good description of the fall. She is hemodynamically stable. Do not see any obvious evidence of head trauma. She has no midline C-spine tenderness and intact range of motion of her head. Do not have any focal tenderness to the right arm, she has preserved range of motion. She has no midline tenderness to her lumbar back, she has a couple different areas of tenderness to the lateral back and some of which are nonreproducible. She is neurologically intact and has intact strength and sensation to her lower extremities. Through the triage process she had imaging performed. Her head CT is negative for bleed, C-spine CT is negative for fracture, right humerus is negative for fracture, lumbar x-ray is negative for new fracture, she has a T11 compression fracture which was seen on previous imaging. Patient was provided oral pain control, she was given medications that were seen in her med list. She was provided transportation home. Return precautions given, stable at time of discharge. - Vital Signs Vital signs: Temp Pulse Resp BP Pulse Ox 97.7 F 68 16 140/68 H 98 03/24/20 23:47 03/24/20 23:47 03/24/20 23:47 03/24/20 23:47 03/24/20 23:47 - Laboratory Laboratory results interpreted by me: 03/24/20 17:09 Urine Glucose (UA) 50 H - Diagnostic Test Radiology reviewed: Image reviewed, Reports reviewed Discharge - Discharge Clinical Impression: Acute exacerbation of chronic low back pain Fall from standing Qualifiers: Encounter type: initial encounter Qualified Code(s): W19.XXXA - Unspecified fall, initial encounter Disposition: HOME, SELF-CARE Additional Instructions: Please have close up with your primary care doctor. Return to the emergency department for any concerning worsening symptoms. Referrals: ROSLYN TOLEDO MD [Primary Care Provider] - Follow up as needed
[2020-03-24] MEDS ORDERED: TRAMADOL HCL 50 MG TABLET PO ONE (22:19)
[2020-03-24] MEDS ORDERED: ACETAMINOPHEN WITH CODEINE 120-12 MG/5 ML UDCUP PO ONE (23:35)
[2020-03-24 23:48] VITALS: BP 140/68
== END 2020-03-25 01:31 | disposition home or self-care (01) ==
LOC: ER 16:54
DX: R51.9 Headache, unspecified (principal); M79.601 Pain in right arm; G89.29 Other chronic pain; M54.5 Low back pain; W01.0XXA Fall on same level from slipping, tripping and stumbling without subsequent striking against object, initial encounter; Y92.009 Unspecified place in unspecified non-institutional (private) residence as the place of occurrence of the external cause; E78.00 Pure hypercholesterolemia, unspecified; I10 Essential (primary) hypertension
CPT/HCPCS: 99285; 81001; 73060; 72110; 70450; 72125; A9270 ×2; J3490

== ENCOUNTER 2020-03-28 23:23 | Emergency (ER) | payer MEDICARE, MEDICAID ==
[2020-03-29] MEDS ORDERED: OXYCODONE HCL IR 5 MG TABLET PO ONE (01:29)
--- NOTE | 2020-03-29 01:35 | ER Document Report ---
ED Medical Screen (RME) - General Chief Complaint: Back Pain Stated Complaint: CHRONIC BACK PAIN Time Seen by Provider: 03/29/20 01:29 Primary Care Provider: ROSLYN TOLEDO MD [Primary Care Provider] - Follow up as needed Notes: Patient presents to the ER via EMS for continued back pain after sustaining a fall approximately 2 weeks ago. Patient was seen in the emergency room at the time of the fall with x-rays that showed chronic appearing findings. She denies weakness or numbness in the lower extremities. She is ambulatory with assistance. The patient states she is not able to tolerate the pain at home. She denies neck pain. She denies headache. She denies positive loss of consciousness. She has had no falls since the original fall 2 weeks ago. Exam CONSTITUTIONAL: Patient patient in pain. She is in mild distress. NEUROLOGIC: Normal speech, moves all extremities. Good strength and sensation bilateral lower extremities. MUSCULOSKELETAL: There is tenderness palpation in the lumbar spine. Patient is reactive with exam. I have greeted and performed a rapid initial assessment of this patient. A comprehensive ED assessment and evaluation of the patient, analysis of test results and completion of the medical decision making process will be conducted by additional ED providers. Dictation of this chart was performed using voice recognition software; therefore, there may be some unintended grammatical errors. TRAVEL OUTSIDE OF THE [place] IN LAST 30 DAYS: No - Related Data Allergies/Adverse Reactions: No Known Allergies Allergy (Verified 03/02/20 09:23) Home Medications: oxycodone 5mg Past Medical History - Past Medical History Cardiac Medical History: Reports: Hx Hypercholesterolemia, Hx Hypertension Pulmonary Medical History: Reports: Hx COPD Endocrine Medical History: Reports: Hx Diabetes Mellitus Type 2 - "borderline" Renal/ Medical History: Reports: Hx Ovarian Cysts Malignancy Medical History: Reports: Hx Cervical Cancer - uterine cancer GI Medical History: Reports: Hx Gastroesophageal Reflux Disease Musculoskeltal Medical History: Reports Hx Arthritis - back, shoulders, and neck, Reports Hx Musculoskeletal Deformity - Chronic back pain arthritis and back shoulder or neck Psychiatric Medical History: Reports: Hx Bipolar Disorder, Hx Depression Traumatic Medical History: Reports: Hx Fractures Past Surgical History: Reports: Hx Section, Hx Gynecologic Surgery, Hx Hysterectomy, Hx Orthopedic Surgery - L shoulder, Hx Tubal Ligation - Immunizations Immunizations up to date: Yes Hx Diphtheria, Pertussis, Tetanus Vaccination: Yes Physical Exam - Vital signs Vitals: Temp Pulse Resp BP Pulse Ox 99.0 F 83 18 152/94 H 95 03/29/20 00:04 03/29/20 00:04 03/29/20 00:04 03/29/20 00:04 03/29/20 00:04 Course - Vital Signs Vital signs: Temp Pulse Resp BP Pulse Ox 99.0 F 83 18 152/94 H 95 03/29/20 00:04 03/29/20 00:04 03/29/20 00:04 03/29/20 00:04 03/29/20 00:04 Doctor's Discharge - Discharge Referrals: ROSLYN TOLEDO MD [Primary Care Provider] - Follow up as needed
--- NOTE | 2020-03-29 02:25 | RADIOLOGY REPORT (SQ) ---
EXAM DESCRIPTION: CT LUMBAR SPINE WITHOUT CLINICAL HISTORY: 79 years Female; fall - continued back pain TECHNIQUE: Noncontrast lumbar spine CT with sagittal and coronal reconstructions. All CT scans at this facility use dose modulation, iterative reconstruction, and/or weight based dosing when appropriate to reduce radiation dose to as low as reasonably achievable. COMPARISON: Radiographs of the lumbar spine March 24, 2020 FINDINGS: Five nonrib-bearing lumbar vertebral bodies are identified on the radiographs. Curvature of the spine convex left is noted. Vacuum discs are present at T12-L1, L1-2, L2-3 and L5-S1. Endplate spondylosis is also present at these levels. 5 mm nonobstructing stone is seen in the right kidney. Vascular calcifications are present in the aorta. No aneurysm. No paraspinal abnormality. No definitive acute fracture of the lumbar spine. Sacrum and SI joints are intact. T12-L1: Vacuum disc with endplate spondylosis. There appears to be a central disc protrusion which is partially ossified indicating a chronic process. L1-2: Endplate spondylosis and facet arthropathy. L2-3: Vacuum disc with endplate spondylosis. There is neural foraminal narrowing right greater than left. L3-4: Symmetric disc bulge. Bilateral foraminal narrowing left greater than right. L4-5: Bilateral facet arthropathy with a symmetric disc bulge. L5-S1: Severe degenerative facet arthropathy with vacuum disks and endplate spondylosis. There is foraminal narrowing left greater than right IMPRESSION: 1. No acute fracture. 2. Multilevel degenerative disc disease with foraminal narrowing and spinal stenosis as described.
[2020-03-29] MEDS ORDERED: HYDROCODONE/ACETAMINOPHEN 5-325 MG (6 TAB/ER DISP) PO PRN (04:07)
--- NOTE | 2020-03-29 04:08 | ER Document Report ---
HPI - HPI Time Seen by Provider: 03/29/20 01:29 Pain Level: 4 Context: Patient is an 79-year-old female who comes emergency department for chief complaint of back pain. Patient sustained a fall approximately 2 weeks ago and was seen in the emergency department at that time, she had a CAT scan of the head and x-rays of her lower back. She denies headaches, numbness, she is able to urinate without difficulty, she denies fecal incontinence, she denies any new symptoms however she states that she continues to have lower back pain. She states she saw her primary care provider and was prescribed oxycodone, she states that she was only given a few days supply and she ran out, she states she is treated for chronic back pain and she will not be able to see them again until Thursday. She requests assistance with her pain, she denies any other complaints. - REPRODUCTIVE Reproductive: DENIES: : Past Medical History - General Information source: Patient - Social History Smoking Status: Never Smoker Frequency of alcohol use: None Drug Abuse: None Lives with: Family Family History: Reviewed & Not Pertinent Patient has homicidal ideation: No - Past Medical History Cardiac Medical History: Reports: Hx Hypercholesterolemia, Hx Hypertension Pulmonary Medical History: Reports: Hx COPD Endocrine Medical History: Reports: Hx Diabetes Mellitus Type 2 - "borderline" Renal/ Medical History: Reports: Hx Ovarian Cysts Malignancy Medical History: Reports: Hx Cervical Cancer - uterine cancer GI Medical History: Reports: Hx Gastroesophageal Reflux Disease Musculoskeletal Medical History: Reports Hx Arthritis - back, shoulders, and neck, Reports Hx Musculoskeletal Deformity - Chronic back pain arthritis and back shoulder or neck Psychiatric Medical History: Reports: Hx Bipolar Disorder, Hx Depression Traumatic Medical History: Reports: Hx Fractures Past Surgical History: Reports: Hx Section, Hx Gynecologic Surgery, Hx Hysterectomy, Hx Orthopedic Surgery - L shoulder, Hx Tubal Ligation - Immunizations Immunizations up to date: Yes Hx Diphtheria, Pertussis, Tetanus Vaccination: Yes Hx Pneumococcal Vaccination: 02/01/13 Vertical Provider Document - CONSTITUTIONAL General Appearance: WD/WN, No Apparent Distress - Talkative and well-appearing - INFECTION CONTROL TRAVEL OUTSIDE OF THE [place] IN LAST 30 DAYS: No - HEENT HEENT: Atraumatic, Normal ENT Exam, Normocephalic - NECK Neck: Normal Inspection - RESPIRATORY Respiratory: Breath Sounds Normal, No Respiratory Distress, Chest Non-Tender - CARDIOVASCULAR Cardiovascular: Regular Rate, Regular Rhythm - GI/ABDOMEN Gastrointestinal: Abdomen Soft, Abdomen Non-Tender. negative: Abdomen Tender - BACK Back: negative: Normal Inspection - Tenderness over the bilateral paralumbar musculature and somewhat over the midline as well. No midline tenderness, no saddle anesthesia, no signs of trauma. Normal upper and lower extremity range of motion, normal strength, normal distal neurovascular exam. Negative straight leg raise testing - MUSCULOSKELETAL/EXTREMETIES Musculoskeletal/Extremeties: MAEW, FROM, Non-Tender - NEURO Level of Consciousness: Awake, Alert, Appropriate Motor/Sensory: No Motor Deficit, No Sensory Deficit - DERM Integumentary: Warm, Dry, No Rash Course - Re-evaluation Re-evalutation: Patient is actually smiling and well-appearing. She moves without difficulty, has no neurological deficits reported or noted on exam, unremarkable vital signs. She does have reproducible tenderness over the lower back but no signs of swelling or concerning injury are noted. Patient also noted to be coming here very frequently for the same complaints. She requests short-term pain medication and discharge. She has a Thursday follow-up reportedly which is in about 2 days. Patient is able to ambulate. Very low suspicion of spinal cord abnormality or concerning infection. Discussed close follow-up and return pre cautions. Patient states understanding and agreement. Stable and well- appearing at time of discharge. - Vital Signs Vital signs: Temp Pulse Resp BP Pulse Ox 99.0 F 83 18 152/94 H 95 03/29/20 00:04 03/29/20 00:04 03/29/20 00:04 03/29/20 00:04 03/29/20 00:04 Discharge - Discharge Clinical Impression: Lower back pain Qualifiers: Chronicity: unspecified Back pain laterality: bilateral Sciatica presence: without sciatica Qualified Code(s): M54.5 - Low back pain Condition: Stable Disposition: HOME, SELF-CARE Instructions: Oral Narcotic Medication ([facility]) Additional Instructions: The imaging does not show any fractures or concerning findings, your evaluation is reassuring. Follow-up closely with your provider for additional management of your pain, also see the chronic pain management referral. Return if you worsen including loss of control of your bowel or bladder, severe worsening pain, fever, developing numbness, or any other concerning symptoms. Referrals: ROSLYN TOLEDO MD [Primary Care Provider] - Follow up tomorrow
[2020-03-29 05:52] VITALS: BP 136/84
== END 2020-03-29 05:50 | disposition home or self-care (01) ==
LOC: ER 23:23
DX: M51.37 Other intervertebral disc degeneration, lumbosacral region (principal); M48.061 Spinal stenosis, lumbar region without neurogenic claudication; M48.07 Spinal stenosis, lumbosacral region; I10 Essential (primary) hypertension; J44.9 Chronic obstructive pulmonary disease, unspecified
CPT/HCPCS: 99285; 72131; A9270 ×2

== ENCOUNTER 2020-03-30 12:31 | Emergency (ER) | payer MEDICARE, MEDICAID ==
[2020-03-30 12:49] VITALS: BP 147/83
[2020-03-30] MEDS ORDERED: OXYCODONE HCL IR 5 MG TABLET PO ONE (14:05)
[2020-03-30] MEDS ORDERED: KETOROLAC TROMETHAMINE INJ/PF 30 MG/1 ML SDV IM ONE (14:05)
--- NOTE | 2020-03-30 14:13 | ER Document Report ---
ED Neck/Back Problem - General Chief Complaint: Back Pain Stated Complaint: BACK PAIN Time Seen by Provider: 03/30/20 13:56 Primary Care Provider: ROSLYN TOLEDO MD [Primary Care Provider] - 04/02/20 Mode of Arrival: Wheelchair Information source: Patient Notes: 79-year-old female presented to ED for complaint of chronic back pain. She states Dr. Toledo gives her oxycodone when she gets his pain but she does not have a right now and he is not in his office today. Patient is alert oriented respirations regular nonlabored speaking in full sentences. She was in the emergency room on the and on the and was seen by providers and given medicines both days. I told her that I will give her a Toradol shot and a oxycodone today but that she needed to take the medicines that the other providers have already given her to take home at their follow-up with [facility]. Constitutional: Negative for fever. HENT: Negative for sore throat. Eyes: Negative for visual changes. Cardiovascular: Negative for chest pain. Respiratory: Negative for shortness of breath. Gastrointestinal: Negative for abdominal pain, vomiting or diarrhea. Genitourinary: Negative for dysuria. Musculoskeletal: Chronic back pain with no new injuries Skin: Negative for rash. Neurological: Negative for headaches, weakness or numbness. 10 point ROS negative except as marked above and in HPI. PHYSICAL EXAMINATION: GENERAL: Well-appearing, well-nourished and in no acute distress. HEAD: Atraumatic, normocephalic. EYES: Pupils equal round extraocular movements intact, conjunctiva are normal. ENT: Nares patent NECK: Normal range of motion LUNGS: No respiratory distress Musculoskeletal: Chronic back pain with no signs or symptoms of cauda equina. No new injuries NEUROLOGICAL: Normal speech, normal gait. PSYCH: Normal mood, normal affect. SKIN: Warm, Dry, normal turgor, no rashes or lesions noted. TRAVEL OUTSIDE OF THE [place] IN LAST 30 DAYS: No - HPI Patient complains to provider of: Lower back Onset: Other - long time chronic Onset: Chronic Timing: Still present Quality of pain: Sharp Severity: Moderate Pain Level: 3 Recent injury: No Associated symptoms: Like prior neck/back pain, Lower back pain Exacerbated by: Movement of trunk, Sitting position Relieved by: Nothing Similar symptoms previously: Yes Recently seen / treated by doctor: Yes - Related Data Allergies/Adverse Reactions: No Known Allergies Allergy (Verified 03/30/20 14:03) Past Medical History - General Information source: Patient - Social History Smoking Status: Never Smoker Frequency of alcohol use: None Drug Abuse: None Lives with: Family Family History: Reviewed & Not Pertinent Patient has suicidal ideation: No Patient has homicidal ideation: No - Past Medical History Cardiac Medical History: Reports: Hx Hypercholesterolemia, Hx Hypertension Pulmonary Medical History: Reports: Hx COPD EENT Medical History: Reports: None Neurological Medical History: Reports: None Endocrine Medical History: Reports: Hx Diabetes Mellitus Type 2 - "borderline" Renal/ Medical History: Reports: Hx Ovarian Cysts Malignancy Medical History: Reports: Hx Cervical Cancer - uterine cancer GI Medical History: Reports: Hx Gastroesophageal Reflux Disease Musculoskeletal Medical History: Reports Hx Arthritis - back, shoulders, and neck, Reports Hx Musculoskeletal Deformity - Chronic back pain arthritis and back shoulder or neck Skin Medical History: Reports None Psychiatric Medical History: Reports: Hx Bipolar Disorder, Hx Depression Traumatic Medical History: Reports: Hx Fractures Infectious Medical History: Reports: None Past Surgical History: Reports: Hx Section, Hx Gynecologic Surgery, Hx Hysterectomy, Hx Orthopedic Surgery - L shoulder, Hx Tubal Ligation - Immunizations Immunizations up to date: Yes Hx Diphtheria, Pertussis, Tetanus Vaccination: Yes Hx Pneumococcal Vaccination: 02/01/13 Physical Exam - Vital signs Vitals: Temp Pulse Resp BP Pulse Ox 98.1 F 96 16 147/83 H 98 03/30/20 12:48 03/30/20 12:48 03/30/20 12:48 03/30/20 12:48 03/30/20 12:48 Course - Re-evaluation Re-evalutation: 03/30/20 14:15 After performing a Medical Screening Examination, I estimate there is LOW risk for EXPANDING OR RUPTURED ABDOMINAL AORTIC ANEURYSM, CAUDA EQUINA SYNDROME, EPIDURAL MASS LESION, or HERNIATED DISK CAUSING SEVERE SPINAL STENOSIS, thus I consider the discharge disposition reasonable. I have reevaluated this patient multiple times and no significant life threatening changes are noted. The patient and I have discussed the diagnosis and risks, and we agree with discharging home and close follow-up. We also discussed returning to the Emergency Department immediately if new or worsening symptoms occur with the understanding that symptoms and presentations can change. We have discussed the symptoms which are most concerning (e.g., saddle anesthesia, urinary or bowel incontinence or retention, changing or worsening pain) that necessitate immediate return. - Vital Signs Vital signs: Temp Pulse Resp BP Pulse Ox 98.1 F 96 16 147/83 H 98 03/30/20 14:03 03/30/20 12:48 03/30/20 12:48 03/30/20 12:48 03/30/20 12:48 Discharge - Discharge Clinical Impression: Back pain, chronic Qualifiers: Back pain location: low back pain Back pain laterality: unspecified Sciatica presence: unspecified whether sciatica present Qualified Code(s): M54.5 - Low back pain Condition: Stable Disposition: HOME, SELF-CARE Additional Instructions: Chronic Back Pain Chronic back pain (pain persisting longer than three months) is a common problem. A medical evaluation can look for herniated disc, arthritis, osteoporosis, tumors, and infections. But at least half the time, there's no obvious treatable cause. Anxiety and depression tend to worsen back pain. Ibuprofen or other anti-inflammatory medicine can help. A heating pad, used for 15-20 minutes at a time, can ease pain. For this type of back pain, narcotic medicines should be avoided. Muscle relaxers are rarely helpful unless you're having spasms. Activity is important. Find an aerobic exercise program that your back can tolerate. Too much rest makes back pain worse. Specific back exercises are usua lly prescribed to strengthen the back and abdominal muscles. Often, a physical therapist can help. Avoid heavy lifting, working while bent over, or standing with both knees straight. Most back pain patients do better with a firm mattress. If new symptoms of a "herniated disc" (radiation of pain, numbness, or tingling down the back of the leg or weakness in the leg) occur, you should be r e-examined. ORAL NARCOTIC MEDICATION: You have been given 1 oxycodone for pain control. This medication is a narcotic. It's best taken with food, as nausea can result if taken on an empty stomach. Don't operate machinery or drive within six hours of taking this medication. Do not combine this medicine with alcohol, or with any medication which can cause sedation (such as cold tablets or sleeping pills) unless you get permission from the physician. Narcotics tend to cause constipation. If possible, drink plenty of fluids and eat a diet high in fiber and fruits. Please be aware that prescription narcotics also have the potential for abuse. People become addicted to these medications because of the general sense of wellbeing that they induce. This feeling along with a significant reduction in tension, anxiety, and aggression provides a stimulating seductive quality to these drugs. Once your pain is under control, we encourage you to discard your unused narcotics. Toradol Injection You have been given an injection of ketorolac tromethamine (Toradol). This is an excellent, safe drug for pain control. It also has potent antiin flammatory action. You should have significant pain relief within about one hour. Toradol is not addicting and is non-sedating. It does not interfere with driving or work. Call or return if you develop itching, hives, shortness of breath, or rash. Stretching Exercises for the Back The physician has recommended that you begin stretching exercises for your back. These are often used even while the back is painful. However, you should notify the physician if the activities seem to increase your pain. PELVIC TILT: Lie flat on your back with knees bent. Tighten your stomach and buttock muscles so it flattens your lower back against the floor. Hold 10 seconds. Repeat 10 times, twice daily. KNEE RAISE: Lying on the back with knees bent, raise one knee to your tod st, then the other. Hold both knees against the chest 10 seconds, then lower one knee at a time. Repeat 10 times, twice daily. PARTIAL TRUNK RAISE: Lie face down, arms at your sides. Keeping your waist on the floor, use your arms raise your chest up. Support yourself on your elbows for 30 seconds. Repeat twice daily, increasing the time to two minutes as you recover. ICE PACKS: Apply ice packs frequently against the painful area. Many different schedules are recommended, such as "20 minutes on, 20 minutes off" or "one hour ice, two hours rest." If you need to work, you may need to go longer between ice treatments. You should plan to have the area ice packed AT LEAST one fourth of the time. The ice should be applied over the wrap, tape, or splint, or over a layer of cloth -- not directly against the skin. Some ice bags have a built-in cloth and can be put directly on the skin. WARM PACKS: After approximately two days, apply gentle heat (such as a heating pad or hot water bottle) for about 20 to 30 minutes about every two hours -- at least four times daily. Warmth and elevation will help you make a more rapid recovery, and will ease the pain considerably. Do not use HOT heat, and never apply heat for longer than 30 minutes. The continuous heat can invisibly damage skin and muscles -- even when no burn is seen on the surface. Damaged muscles can make you MORE sore. FOLLOW-UP CARE: If you have been referred to a physician for follow-up care, call the physicians office for an appointment as you were instructed or within the next two days. If you experience worsening or a significant change in your symptoms, notify the physician immediately or return to the Emergency Department at any time for re-evaluation. Forms: Elevated Blood Pressure Referrals: ROSLYN TOLEDO MD [Primary Care Provider] - 04/02/20
== END 2020-03-30 14:47 | disposition home or self-care (01) ==
LOC: ER 12:31
DX: M54.5 Low back pain (principal); M54.9 Dorsalgia, unspecified; G89.29 Other chronic pain; Z79.899 Other long term (current) drug therapy; I10 Essential (primary) hypertension; J44.9 Chronic obstructive pulmonary disease, unspecified; E11.9 Type 2 diabetes mellitus without complications
CPT/HCPCS: 99284; 96372; J1885; A9270

== ENCOUNTER 2020-04-26 17:19 | Emergency (ER) | payer MEDICARE, MEDICAID ==
--- NOTE | 2020-04-26 17:28 | ER Document Report ---
ED Medical Screen (RME) - General Chief Complaint: Medical Complaint Stated Complaint: BACK PAIN Time Seen by Provider: 04/26/20 17:24 Primary Care Provider: ROSLYN TOLEDO MD [Primary Care Provider] - Follow up as needed Mode of Arrival: Wheelchair Information source: Patient Notes: 79-year-old female presents to ED for complaint of severe back pain. She does have a long history of chronic back pain. She states Dr. Toledo has her on 1 Tylenol 4 every 8 hours and this does not take the pain away. She states she does not want to live anymore. She states she called her daughter told her she does not want to live anymore. She states she has not eaten in 4 days because she has too much pain. She is crying throughout her interview. I will get blood and urine and she will get seen by one of the doctors. I have greeted and performed a rapid initial assessment of this patient. A comprehensive ED assessment and evaluation of the patient, analysis of test results and completion of medical decision making process will be conducted by an additional ED providers. TRAVEL OUTSIDE OF THE [place] IN LAST 30 DAYS: No - Related Data Allergies/Adverse Reactions: No Known Allergies Allergy (Verified 03/30/20 14:03) Past Medical History - Past Medical History Cardiac Medical History: Reports: Hx Hypercholesterolemia, Hx Hypertension Pulmonary Medical History: Reports: Hx COPD Endocrine Medical History: Reports: Hx Diabetes Mellitus Type 2 - "borderline" Renal/ Medical History: Reports: Hx Ovarian Cysts Malignancy Medical History: Reports: Hx Cervical Cancer - uterine cancer GI Medical History: Reports: Hx Gastroesophageal Reflux Disease Musculoskeltal Medical History: Reports Hx Arthritis - back, shoulders, and neck, Reports Hx Musculoskeletal Deformity - Chronic back pain arthritis and back shoulder or neck Psychiatric Medical History: Reports: Hx Bipolar Disorder, Hx Depression Traumatic Medical History: Reports: Hx Fractures Past Surgical History: Reports: Hx Section, Hx Gynecologic Surgery, Hx Hysterectomy, Hx Orthopedic Surgery - L shoulder, Hx Tubal Ligation - Immunizations Immunizations up to date: Yes Hx Diphtheria, Pertussis, Tetanus Vaccination: Yes Physical Exam - Vital signs Vitals: Temp Pulse Resp BP Pulse Ox 98.8 F 96 16 144/91 H 98 04/26/20 17:21 04/26/20 17:21 04/26/20 17:21 04/26/20 17:21 04/26/20 17:21 Course - Vital Signs Vital signs: Temp Pulse Resp BP Pulse Ox 98.8 F 96 16 144/91 H 98 04/26/20 17:21 04/26/20 17:21 04/26/20 17:21 04/26/20 17:21 04/26/20 17:21 Doctor's Discharge - Discharge Referrals: ROSLYN TOLEDO MD [Primary Care Provider] - Follow up as needed
--- NOTE | 2020-04-26 18:08 | RADIOLOGY REPORT (SQ) ---
EXAM DESCRIPTION: L SPINE WHOLE IMAGES COMPLETED DATE/TIME: 04/26/2020 5:54 pm REASON FOR STUDY: Increased back pain COMPARISON: None. NUMBER OF VIEWS: Five views including obliques. TECHNIQUE: AP, lateral, oblique, and sacral radiographic images acquired of the lumbar spine. LIMITATIONS: None. FINDINGS: MINERALIZATION: Osteopenia. SEGMENTATION: Normal. No transitional anatomy. ALIGNMENT: Levoscoliosis. VERTEBRAE: Old compression changes at T11. DISCS: Disc spaces are narrowed from T12-L3 and at L5-S1. Small marginal osteophytes are present. POSTERIOR ELEMENTS: Hypertrophic facet changes is seen from L4-S1. HARDWARE: None in the spine. PARASPINAL SOFT TISSUES: Normal. PELVIS: Intact as visualized. No fractures or worrisome bone lesions. SI joints intact. OTHER: No other significant finding. IMPRESSION: Scoliosis, spondylosis, degenerative disc disease, and facet arthropathy. TECHNICAL DOCUMENTATION: JOB ID: [id number] 2010 [employer]- All Rights Reserved Reading location - IP/workstation name: [email or web address]
[2020-04-26] MEDS ORDERED: HYDROCODONE/ACETAMINOPHEN 5-325 MG TABLET PO ONE (18:16)
[2020-04-26 18:53] LABS: ABSOLUTE BASOPHILS # (AUTO) 0.1 10^3/uL (0.0-0.2); ABSOLUTE LYMPHOCYTES (AUTO) 2.2 10^3/uL (0.5-4.7); ABSOLUTE MONOCYTES (AUTO) 0.9 10^3/uL (0.1-1.4); ABSOLUTE NEUT (AUTO) 8.7 10^3/uL (1.7-8.2); EOSINOPHILS % (AUTO) 0.3 % (0-6); HEMATOCRIT 36.3 % (36.0-47.0); HEMOGLOBIN 12.8 g/dL (12.0-15.5); LYMPHOCYTES % (AUTO) 18.2 % (13-45); MEAN CORPUSCULAR HEMOGLOBIN 26.4 pg (27.0-33.4); MEAN CORPUSCULAR HGB CONC 35.3 g/dL (32.0-36.0); MEAN CORPUSCULAR VOLUME 75 fl (80-97); MONOCYTES % (AUTO) 7.8 % (3-13); PLATELET COUNT 393 10^3/uL (150-450); RED BLOOD COUNT 4.85 10^6/uL (3.72-5.28); SEGMENTED NEUTROPHILS % (AUTO) 72.7 % (42-78); TOTAL CELLS COUNTED % (AUTO) 100 %; WHITE BLOOD COUNT 11.9 10^3/uL (4.0-10.5)
[2020-04-26 19:18] LABS: ANION GAP 9 (5-19)
[2020-04-26 19:19] LABS: ALBUMIN 4.3 g/dL (3.5-5.0); ALKALINE PHOSPHATASE 73 U/L (38-126); ASPARTATE AMINO TRANSFERASE 36 U/L (14-36); BILIRUBIN,DIRECT 0.2 mg/dL (0.0-0.4); BILIRUBIN,TOTAL 0.6 mg/dL (0.2-1.3); BLOOD UREA NITROGEN 20 mg/dL (7-20); CARBON DIOXIDE 36 mmol/L (22-30); CHLORIDE 85 mmol/L (98-107); CREATINE KINASE 89 U/L (30-135); GLUCOSE 135 mg/dL (75-110); TOTAL PROTEIN 7.6 g/dL (6.3-8.2)
[2020-04-26] MEDS ORDERED: ONDANSETRON 4 MG TAB.RAPDIS PO ONE (19:19)
[2020-04-26 19:26] LABS: POTASSIUM 2.7 mmol/L (3.6-5.0)
[2020-04-26] MEDS ORDERED: POTASSI CL 20 MEQ/50 ML RIDER 20 MEQ/50 ML RTUPB IV ONE (19:43)
[2020-04-26] MEDS ORDERED: KETOROLAC TROMETHAMINE INJ/PF 30 MG/1 ML SDV IV ONE (22:54)
[2020-04-26] MEDS ORDERED: HYDROMORPHONE HCL INJ/PF 2 MG/ML AMPULE IV ONE (22:54)
[2020-04-26] MEDS ORDERED: HYDROCODONE/ACETAMINOPHEN 5-325 MG (6 TAB/ER DISP) PO PRN (22:55)
[2020-04-26] MEDS ORDERED: POTASSIUM CHLORIDE 10 MEQ TABLET.ER PO ONE (23:02)
--- NOTE | 2020-04-26 23:02 | ER Document Report ---
ED General - General Chief Complaint: Nausea/Vomiting Stated Complaint: BACK PAIN Time Seen by Provider: 04/26/20 17:24 Primary Care Provider: ROSLYN TOLEDO MD [Primary Care Provider] - Follow up as needed Mode of Arrival: Wheelchair TRAVEL OUTSIDE OF THE [place] IN LAST 30 DAYS: No - HPI Context: Chief Complaint: [Back pain] [This is a 79-year-old female with a history of multiple visits to this emergency department complaining of the low back pain. Patient states she fell backwards about 8 months ago and has been having severe back pain ever since. Review the triage note shows that the patient stated to the triage provider that she told her daughter that she does not want to live anymore because she is in so much pain. Patient recently saw her PMD and was prescribed 90 tablets of Tylenol No. 4. Patient states that this is not helping her pain at all. When asked if she is having thoughts of hurting herself or thoughts of suicide. The patient denies this but she states that she hates living in pain like this. She just wants some relief of her back pain. Patient denies radiation of pain down her legs. Patient denies sensation changes in her perineum and patient denies changes in bowel habits or urinary habits. Patient also states that she lives alone and her daughter lives in [place] and she has nobody to help her around the house during the week with activities of daily living. This MD asked the patient's nurse to put in a case management consult ] History obtained from [patient] Symptoms began:[8 months ago] Onset: [Sudden] Timing: [After fall] Quality: [Sharp] Intensity: [5] Location: [Lower lumbar mid spine] Radiation: [Patient denies] [The pain does not migrate to a new location.] Aggravating factors: Movement Relieving factors: [none] [Denies] SOB [Denies] nausea [Denies] vomiting [Denies] sweats [Denies] fever [Denies] cough [Denies] calf or leg swelling or pain - Related Data Allergies/Adverse Reactions: No Known Allergies Allergy (Verified 03/30/20 14:03) Past Medical History - General Information source: Patient - Social History Smoking Status: Never Smoker Lives with: Alone Family History: Reviewed & Not Pertinent - Past Medical History Cardiac Medical History: Reports: Hx Hypercholesterolemia, Hx Hypertension Pulmonary Medical History: Reports: Hx COPD Endocrine Medical History: Reports: Hx Diabetes Mellitus Type 2 - "borderline" Renal/ Medical History: Reports: Hx Ovarian Cysts Malignancy Medical History: Reports: Hx Cervical Cancer - uterine cancer GI Medical History: Reports: Hx Gastroesophageal Reflux Disease Musculoskeletal Medical History: Reports Hx Arthritis - back, shoulders, and neck, Reports Hx Musculoskeletal Deformity - Chronic back pain arthritis and back shoulder or neck Psychiatric Medical History: Reports: Hx Bipolar Disorder, Hx Depression Traumatic Medical History: Reports: Hx Fractures Past Surgical History: Reports: Hx Section, Hx Gynecologic Surgery, Hx Hysterectomy, Hx Orthopedic Surgery - L shoulder, Hx Tubal Ligation - Immunizations Immunizations up to date: Yes Hx Diphtheria, Pertussis, Tetanus Vaccination: Yes Hx Pneumococcal Vaccination: 02/01/13 Review of Systems - Review of Systems Notes: Review of systems as below unless otherwise stated in HPI. CONSTITUTIONAL [No] fever, [No] chills. EYES [No] eye pain. ENT [No] URI symptoms, [No] sore throat, [No] ear pain. CARDIOVASCULAR [No] chest pain, [No] palpitations, [No] edema. RESPIRATORY [No] Cough, [No] SOB, [No] wheezing. GASTROINTESTINAL [No] abdominal pain, [No] nausea, [No] Diarrhea, [No] Vomiting, [No] constipation, [No] melena, [No] rectal bleeding. GENITOURINARY [No] dysuria, [No] urinary frequency, [No] hematuria, [No] urinary urgency, [No] vaginal discharge, [No] vaginal bleeding. MUSCULOSKELETAL Positive back pain. SKIN [No] Rash. NEUROLOGIC [No] Headache, [No] recent seizures, [No] paralysis,[No] parathesias. ENDOCRINE [No] polyuria. HEMO/LYMPATIC [No] easy brusing PSYCHIATRIC Positive anxiety Physical Exam - Vital signs Vitals: Temp Pulse Resp BP Pulse Ox 98.8 F 96 16 144/91 H 98 04/26/20 17:21 04/26/20 17:21 04/26/20 17:21 04/26/20 17:21 04/26/20 17:21 - Notes Notes: CONSTITUTIONAL [Vital signs reviewed, Patient appears uncomfortable comfortable, Alert and or iented X 3, patient is tearful and perseverates about how much back pain she is having and that the medication she is on is not helping her symptoms. While the patient appears uncomfortable she does not appear to be in extremitas or acute distress.] HEAD [Atraumatic, Normocephalic.] EYES [Eyes are normal to inspection, No discharge from eyes, Extraocular muscles intact, Sclera are normal, Conjunctiva are normal.] ENT [External ears normal to inspection, Nose examination normal, Mouth normal to inspection.] NECK [Normal ROM, No jugular venous distention, No meningeal signs, ] RESPIRATORY CHEST [Chest is nontender, Breath sounds normal, No respiratory distress.] CARDIOVASCULAR [RRR, No murmurs, Normal S1 S2, No rub, No gallop.] ABDOMEN [Abdomen is nontender, No pulsatile masses, No other masses, Bowel sounds normal, No distension, No peritoneal signs, No hernias.] BACK Patient has pain to palpation at the base of her lumbar spine in the midline. There are are no areas of crepitus, step-off or palpable deformity.] UPPER EXTREMITY [Inspection normal, No cyanosis, No clubbing, No edema, LOWER EXTREMITY [Inspection normal, No cyanosis, No clubbing, No edema, No calf tenderness, NEURO [No focal motor deficits, No focal sensory deficits, patellar reflexes 2+ bilaterally speech normal.] SKIN [Skin is warm, Skin is dry, Skin is normal color.] PSYCHIATRIC [Anxious affect and tearful at times when she talks about her pain and about being alone at home.] Course - Re-evaluation Re-evalutation: 04/26/20 23:28 Results of ED MSE discussed with patient. All questions were answered prior to discharge. Patient refused IV potassium replacement but is willing to take oral potassium. Emergency signs and symptoms, reasons to return to the emergency department discussed with patient. - Vital Signs Vital signs: Temp Pulse Resp BP Pulse Ox 98.8 F 92 22 H 130/89 H 94 04/26/20 17:21 04/26/20 19:36 04/26/20 19:36 04/26/20 19:36 04/26/20 19:36 - Laboratory Results Result Diagrams: 04/26/20 18:41 04/26/20 18:41 Laboratory Results Interpreted: 04/26/20 04/26/20 18:41 18:41 WBC 11.9 H MCV 75 L MCH 26.4 L RDW 18.0 H Absolute Neuts (auto) 8.7 H Sodium 130.4 L Potassium 2.7 L* Chloride 85 L Carbon Dioxide 36 H Glucose 135 H Critical Laboratory Results Reviewed: Yes Attending or Supervising Physician who Reviewed Labs: JOHNNY EATON IV - Patient has a potassium of 2.7 - Radiology Results Critical Radiology Results Reviewed: No Critical Results - EKG Interpretation by Me Additional EKG results interpreted by me: 04/26/20 23:31 EKG obtained on 04/26/2020 at 2015 hrs. was interpreted by this MD. Findings: Normal sinus rhythm, rate 84, normal axis, GA interval appears to be within normal limits, P waves preceding QRS complexes, left anterior fascicular block is present, there are are no obvious patterns of ST segment elevation or depression present to suggest acute myocardial ischemia or infarction. QTC is 483. There is no prior EKG immediately available for comparison. Impression: Normal sinus rhythm with left anterior fascicular block and nonspecific ST segments. Discharge - Discharge Clinical Impression: Acute exacerbation of chronic low back pain, Hypokalemia Condition: Stable Disposition: HOME, SELF-CARE Instructions: Low Back Pain ([facility]), Oral Narcotic Medication ([facility]) Additional Instructions: Do not take Tylenol No. 4 when using [place] or tramadol. Case management should be getting in touch with you in the next couple of days to contact you about getting help with issues at home sent to requested that you need help at home. Return to the Emergency Department without delay if any worse. HOME CARE INSTRUCTIONS & INFORMATION: Thank you for choosing us for your medical needs. We hope you're satisfied with the care you received. After you leave, you must properly care for your problem and, at the same time, observe its progress. Any condition can change. Some illnesses can change rapidly over hours or days. If your condition worsens, return to the Emergency Department or see your physician promptly. ABOUT YOUR X-RAYS AND EKG'S: If you had an EKG or X-rays taken, they have been read by the Emergency Physician. The X-rays and EKG's will also be read by a Radiologist or Professor Of Surgery within 24 hours. If discrepancies are noted, you will be notified by telephone. Please be certain the ED has a correct telephone number & address where you can be reached. Also, realize that some fractures or abnormalities do not show up on initial X-rays. If your symptoms continue, see your physician. ABOUT YOUR LABORATORY TEST: If you had laboratory tests, the results have been reviewed by the Emergency Physician. Some test results (for example cultures) may not be available for several days. You will be contacted if any test result shows you need additional treatment. Please be certain the ED has a correct telephone number and address where you can be reached. ABOUT YOUR MEDICATIONS: You will receive instructions on how to take your medicine on the prescription label you receive. Additional information may be provided by the Pharmacy. If you have questions afterwards, call the ED for clarification or further instructions. Some prescribed medications may cause drowsiness. Do not perform tasks such as driving a car or operating machinery without consulting your Pharmacist. If you feel you need a refill of pain medication, your condition will need re-evaluation. Please do not call for a refill of any medication. ABOUT YOUR SIGNATURE: Signature of this document acknowledges to followin. Understanding that you received emergency treatment and that you may be released before al medical problems are known or treated. Please be certain the ED has a correct phone number & address where you can be reached. 2. Acknowledgement that you will arrange for follow-up care as recommended. 3. Authorization for the Emergency Physician to provide information to your follow-up Physician in order to maximize your care. AT ANY TIME, IF YOUR SYMPTOMS CHANGE SIGNIFICANTLY OR WORSEN OR YOU DEVELOP NEW SYMPTOMS, RETURN TO THE EMERGENCY DEPARTMENT IMMEDIATELY FOR RE-EVALUATION. OUR GOAL IS TO PROVIDE EXCELLENT MEDICAL CARE! WE HOPE THAT WE HAVE MET YOUR EXPECTATIONS DURING YOUR EMERGENCY DEPARTMENT VISIT AND THAT YOU FEEL YOU HAVE RECEIVED EXCELLENT CARE! Chronic Back Pain Chronic back pain (pain persisting longer than three months) is a common problem. A medical evaluation can look for herniated disc, arthritis, osteoporosis, tumors, and infections. But at least half the time, there's no obvious treatable cause. Anxiety and depression tend to worsen back pain. Ibuprofen or other anti-inflammatory medicine can help. A heating pad, used for 15-20 minutes at a time, can ease pain. For this type of back pain, narcotic medicines should be avoided. Muscle relaxers are rarely helpful unless you're having spasms. Activity is important. Find an aerobic exercise program that your back can tolerate. Too much rest makes back pain worse. Specific back exercises are usually prescribed to strengthen the back and abdominal muscles. Often, a physical therapist can help. Avoid heavy lifting, working while bent over, or standing with both knees straight. Most back pain patients do better with a firm mattress. If new symptoms of a "herniated disc" (radiation of pain, numbness, or tingling down the back of the leg or weakness in the leg) occur, you should be re-examined. Chronic Pain Control Stress, inactivity, and depression make pain more severe regardless of the cause of the pain. Stress and poor physical condition can cause pain such as headaches and backache. Relaxation: Rest in a quiet place with your eyes closed for 20 minutes twice daily. Concentrate on a pleasant image, or simply "feel" your breathing. Clear your mind. Stress management: Deal with your "stressors." Either take action, or eliminate the stressor from your life. Don't let things hang over you. Accept those things you can't change. Nutrition: Eat small, balanced meals -- don't skip, don't overeat. Meals should be high-carbohydrate, low-sugar, low-fat. Exercise: Exercise helps painful conditions and eases stress. Get 30 min utes of moderate exercise, five days a week. Do an activity that does not flare your pain. Precautions: Pain which continues to disrupt daily activities, or which changes in nature, requires a medical evaluation. Pain Clinic referral is available. We do not manage chronic pain in the Emergency Department. We will try to appropriately help you through an acute flare of your chronic painful condition, but for on-going chronic pain that does not improve, you will need to see your private doctor or maintenance painter apprentice. We do not provide repeated medication management of chronic painful conditions. If you wish, we can provide the name of local pain management physicians. Hypokalemia You have an abnormally decreased level of serum potassium. Hypokalemia may cause weakness, fatigue, or heart rhythm abnormalities. Sometimes there are no symptoms at all. Usually, low serum potassium is due to taking diuretics (water pills). It can also be due to excessive vomiting or diarrhea. If no obvious cause is evident, further evaluation will be necessary. Treatment is usually oral potassium supplements. Take these exactly as prescribed. You may also want to select foods which are naturally high in potassium -- fruits (such as bananas, cantaloupe, grapes, oranges, prunes, tomatoes), fresh vegetables (potatoes, spinach, beans, peas), orange or tomato juice, tomato pasta sauce, milk, fish (halibut, tuna, salmon, rafa) A follow-up blood test is usually performed to assure that the potassium is returning to normal. Call the physician if you suffer severe weakness, muscle twitching or cramping, palpitations (pounding or irregular heartbeat), or any other new or alarming symptoms. Prescriptions: Tramadol HCl [Ultram 50 mg Tablet] 50 mg PO Q4HP PRN #12 tab PRN Reason: pain Referrals: ROSLYN TOLEDO MD [Primary Care Provider] - Follow up as needed
[2020-04-27 02:35] VITALS: BP 122/71
--- NOTE | 2020-04-27 09:55 | EKG REPORT ---
SEVERITY:- ABNORMAL ECG - SINUS RHYTHM LEFT ANTERIOR FASCICULAR BLOCK LEFT VENTRICULAR HYPERTROPHY : Confirmed by: Vickey Burgess MD 27-Apr-2020 09:54:21
== END 2020-04-27 03:35 | disposition home or self-care (01) ==
LOC: ER 17:19
DX: G89.29 Other chronic pain (principal); M54.5 Low back pain; E87.6 Hypokalemia; R11.2 Nausea with vomiting, unspecified; E78.00 Pure hypercholesterolemia, unspecified; I10 Essential (primary) hypertension; J44.9 Chronic obstructive pulmonary disease, unspecified; E11.9 Type 2 diabetes mellitus without complications
CPT/HCPCS: 93005; 99285; 96374; 96375; 36415; 82550; 85025; 80053; 72110; 93010; A9270 ×4; J1885; J1170; J3480; S0119

== ENCOUNTER 2020-05-02 15:20 | Inpatient (IN) | payer MEDICARE, MEDICAID ==
--- NOTE | 2020-05-02 16:33 | ER Document Report ---
ED Medical Screen (RME) - General Stated Complaint: CONSTIPATION Time Seen by Provider: 05/02/20 16:28 Primary Care Provider: ROSLYN TOLEDO MD [Primary Care Provider] - Follow up as needed Notes: Patient presents complaining of constipation and lower abdominal pain. Patient states that her last bowel movement was today although prior to that it was 3 days ago. Patient states she did have some blood with her bowel movement. Patient denies any fever, nausea or vomiting. Patient complains of chronic back pain and is requesting pain medication in triage. Patient has a history of diabetes, hypertension, dyslipidemia COPD and chronic back pain. I have greeted and performed a rapid initial assessment of this patient. A comprehensive ED assessment and evaluation of the patient, analysis of test results and completion of the medical decision making process will be conducted by additional ED providers. TRAVEL OUTSIDE OF THE [place] IN LAST 30 DAYS: No - Related Data Allergies/Adverse Reactions: No Known Allergies Allergy (Verified 03/30/20 14:03) Past Medical History - Past Medical History Cardiac Medical History: Reports: Hx Hypercholesterolemia, Hx Hypertension Pulmonary Medical History: Reports: Hx COPD Endocrine Medical History: Reports: Hx Diabetes Mellitus Type 2 - "borderline" Renal/ Medical History: Reports: Hx Ovarian Cysts Malignancy Medical History: Reports: Hx Cervical Cancer - uterine cancer GI Medical History: Reports: Hx Gastroesophageal Reflux Disease Musculoskeltal Medical History: Reports Hx Arthritis - back, shoulders, and neck, Reports Hx Musculoskeletal Deformity - Chronic back pain arthritis and back shoulder or neck Psychiatric Medical History: Reports: Hx Bipolar Disorder, Hx Depression Traumatic Medical History: Reports: Hx Fractures Past Surgical History: Reports: Hx Section, Hx Gynecologic Surgery, Hx Hysterectomy, Hx Orthopedic Surgery - L shoulder, Hx Tubal Ligation - Immunizations Immunizations up to date: Yes Hx Diphtheria, Pertussis, Tetanus Vaccination: Yes Physical Exam - Vital signs Vitals: Temp Pulse Resp BP Pulse Ox 98.0 F 117 H 20 118/76 95 05/02/20 15:46 05/02/20 15:46 05/02/20 15:46 05/02/20 15:46 05/02/20 15:46 - Abdominal Tenderness: Tender - Lower abdominal tenderness, exam limited as patient is in chair Course - Vital Signs Vital signs: Temp Pulse Resp BP Pulse Ox 98.0 F 117 H 20 118/76 95 05/02/20 15:46 05/02/20 15:46 05/02/20 15:46 05/02/20 15:46 05/02/20 15:46 Doctor's Discharge - Discharge Referrals: ROSLYN TOLEDO MD [Primary Care Provider] - Follow up as needed
--- NOTE | 2020-05-02 17:07 | RADIOLOGY REPORT (SQ) ---
EXAM DESCRIPTION: KUB/ABDOMEN (SINGLE VIEW) IMAGES COMPLETED DATE/TIME: 05/02/2020 4:44 pm REASON FOR STUDY: abd pain, constipation COMPARISON: 02/09/2020 NUMBER OF VIEWS: One view. TECHNIQUE: Supine radiographic image of the abdomen acquired. LIMITATIONS: None. FINDINGS: BOWEL GAS PATTERN: Normal bowel gas pattern. No dilated loops. CALCIFICATIONS: Stable right nephrolithiasis. SOFT TISSUES: No gross mass or suggestion of organomegaly. HARDWARE: None in the abdomen. BONES: No acute fracture. The osseous structures are stable in appearance.OTHER: No other significan t finding. IMPRESSION: 1. NO RADIOGRAPHIC EVIDENCE FOR ACUTE ABDOMINAL DISEASE. 2. Stable right nephrolithiasis. TECHNICAL DOCUMENTATION: JOB ID: [id number] [employer]- All Rights Reserved Reading location - IP/workstation name: [email or web address]
[2020-05-02] MEDS ORDERED: ACETAMINOPHEN 325 MG TABLET PO ONE (17:23)
[2020-05-02 18:09] LABS: ABSOLUTE BASOPHILS # (AUTO) 0.1 10^3/uL (0.0-0.2); ABSOLUTE LYMPHOCYTES (AUTO) 1.6 10^3/uL (0.5-4.7); ABSOLUTE MONOCYTES (AUTO) 0.8 10^3/uL (0.1-1.4); ABSOLUTE NEUT (AUTO) 14.2 10^3/uL (1.7-8.2); BASOPHILS % (AUTO) 0.7 % (0-2); EOSINOPHILS % (AUTO) 0.2 % (0-6); HEMATOCRIT 39.3 % (36.0-47.0); HEMOGLOBIN 13.3 g/dL (12.0-15.5); LYMPHOCYTES % (AUTO) 9.5 % (13-45); MEAN CORPUSCULAR HEMOGLOBIN 26.1 pg (27.0-33.4); MEAN CORPUSCULAR VOLUME 77 fl (80-97); MONOCYTES % (AUTO) 4.9 % (3-13); PLATELET COUNT 419 10^3/uL (150-450); RED BLOOD COUNT 5.12 10^6/uL (3.72-5.28); RED CELL DISTRIBUTION WIDTH 17.9 % (11.5-14.0); SEGMENTED NEUTROPHILS % (AUTO) 84.7 % (42-78); TOTAL CELLS COUNTED % (AUTO) 100 %; WHITE BLOOD COUNT 16.8 10^3/uL (4.0-10.5)
[2020-05-02 18:37] LABS: ALBUMIN 4.3 g/dL (3.5-5.0); ALKALINE PHOSPHATASE 92 U/L (38-126); ANION GAP 12 (5-19); ASPARTATE AMINO TRANSFERASE 37 U/L (14-36); BILIRUBIN,DIRECT 0.1 mg/dL (0.0-0.4); BILIRUBIN,TOTAL 0.8 mg/dL (0.2-1.3); BLOOD UREA NITROGEN 20 mg/dL (7-20); CALCIUM 10.1 mg/dL (8.4-10.2); CARBON DIOXIDE 29 mmol/L (22-30); CHLORIDE 90 mmol/L (98-107); GLUCOSE 136 mg/dL (75-110); POTASSIUM 3.6 mmol/L (3.6-5.0); TOTAL PROTEIN 7.8 g/dL (6.3-8.2)
--- NOTE | 2020-05-02 19:14 | ER Document Report ---
ED General - General Chief Complaint: Constipation Stated Complaint: CONSTIPATION Time Seen by Provider: 05/02/20 16:28 Primary Care Provider: ROSLYN TOLEDO MD [Primary Care Provider] - Follow up as needed TRAVEL OUTSIDE OF THE [place] IN LAST 30 DAYS: No - HPI Notes: 79-year-old female presents with chief complaint of "I'm constipated". Patient complains that her stomach hurts, she is having lower abdominal pain described as cramping, it radiates all across the lower portion of her abdomen, it just started today. She states that she has not had anything to eat or drink today, no vomiting. The triage note represents that patient did have a bowel movement today, patient is now denying this. She also states that she noted some bright blood in the commode when she was wiping today. She additionally complains of her back pain. States that she had a fall this summer and has had chronic back pain since, she states that she was supposed to have a appointment today to receive refill of her chronic opioids, however she is not able to go to this appointment due to her constipation, she is requesting pain medication multiple times. - Related Data Allergies/Adverse Reactions: No Known Allergies Allergy (Verified 03/30/20 14:03) Past Medical History - General Information source: Patient - Social History Smoking Status: Unknown if Ever Smoked Family History: Reviewed & Not Pertinent Patient has homicidal ideation: No - Past Medical History Cardiac Medical History: Reports: Hx Hypercholesterolemia, Hx Hypertension Pulmonary Medical History: Reports: Hx COPD Endocrine Medical History: Reports: Hx Diabetes Mellitus Type 2 - "borderline" Renal/ Medical History: Reports: Hx Ovarian Cysts Malignancy Medical History: Reports: Hx Cervical Cancer - uterine cancer GI Medical History: Reports: Hx Gastroesophageal Reflux Disease Musculoskeletal Medical History: Reports Hx Arthritis - back, shoulders, and neck, Reports Hx Musculoskeletal Deformity - Chronic back pain arthritis and back shoulder or neck Psychiatric Medical History: Reports: Hx Bipolar Disorder, Hx Depression Traumatic Medical History: Reports: Hx Fractures Past Surgical History: Reports: Hx Section, Hx Gynecologic Surgery, Hx Hysterectomy, Hx Orthopedic Surgery - L shoulder, Hx Tubal Ligation - Immunizations Immunizations up to date: Yes Hx Diphtheria, Pertussis, Tetanus Vaccination: Yes Hx Pneumococcal Vaccination: 02/01/13 Review of Systems - Review of Systems Constitutional: denies: Fever EENT: No symptoms reported Cardiovascular: denies: Chest pain Respiratory: denies: Short of breath Gastrointestinal: See HPI Genitourinary: No symptoms reported Female Genitourinary: No symptoms reported Musculoskeletal: Back pain Skin: No symptoms reported Hematologic/Lymphatic: No symptoms reported Neurological/Psychological: No symptoms reported Physical Exam - Vital signs Vitals: Temp Pulse Resp BP Pulse Ox 98.0 F 117 H 20 118/76 95 05/02/20 15:46 05/02/20 15:46 05/02/20 15:46 05/02/20 15:46 05/02/20 15:46 - General General appearance: Alert In distress: None Notes: Patient initially sleeping on exam, awoken to voice - HEENT Head: Normocephalic, Atraumatic Eyes: No: Scleral icterus Extraocular movements intact: Yes Pupils: PERRL Mucous membranes: Moist - Respiratory Breath sounds: Normal - Cardiovascular Rhythm: Regular Heart sounds: Normal auscultation - Abdominal Distension: No distension Bowel sounds: Normal Tenderness: Tender - Generalized - Extremities General lower extremity: Normal ROM. No: Edema - Neurological Neuro grossly intact: Yes Motor strength normal: LUE, RUE, LLE, RLE Sensory: Normal - Psychological Associated symptoms: Flat affect - Skin Skin Temperature: Warm Course - Re-evaluation Re-evalutation: 79-year-old female presents with constipation, reportedly no bowel movement for the past 3 days, she is on chronic opioids which is likely attributing to her constipation. She is also complaining of lower abdominal pain, she has generalized mild tenderness, no rebound or guarding, abdomen is overall nonperitoneal. She has intact motor and sensation to her lower extremities. She had labs done through the triage process which does demonstrate a leukocytosis of 16.8, normal creatinine, LFTs/T bili unremarkable. Will first start with CT abdomen to assure that no acute abdominal process is present, such as diverticulitis or obstruction. Will treat pain. 05/02/20 22:37 CT abdomen has pelvis, it demonstrates a dilated common bile duct along with a density in the distal duct. Patient has no elevation of T bili or LFTs. Have ordered MRCP to further evaluate as this will determine which service/specialist will be needed 05/02/20 23:07 Have ordered mag citrate to help with patient's constipation and low magnesium level. I went to check on patient, she is sleeping in bed 05/03/20 02:35 Patient having some agitation overnight, have ordered a low-dose of Haldol to see if we can help calm her 05/03/20 03:[address] over to Dr Vargas, pending MRCP - Vital Signs Vital signs: Temp Pulse Resp BP Pulse Ox 98.0 F 117 H 20 118/76 95 05/02/20 15:46 05/02/20 15:46 05/02/20 15:46 05/02/20 15:46 05/02/20 15:46 - Laboratory Results Result Diagrams: 05/02/20 17:43 05/02/20 17:43 Laboratory Results Interpreted: 05/02/20 05/02/20 17:43 17:43 WBC 16.8 H MCV 77 L MCH 26.1 L RDW 17.9 H Lymph % (Auto) 9.5 L Absolute Neuts (auto) 14.2 H Seg Neutrophils % 84.7 H Sodium 131.3 L Chloride 90 L Glucose 136 H Magnesium 1.2 L* AST 37 H Critical Laboratory Results Reviewed: Yes Attending or Supervising Physician who Reviewed Labs: JORDON RODRIGUEZ - Radiology Results Critical Radiology Results Reviewed: Yes Attending or Supervising Physician who Reviewed Radiology: JORDON RODRIGUEZ Discharge - Discharge Clinical Impression: Common bile duct dilation, Constipation due to pain medication therapy, Hypomagnesemia Leukocytosis Qualifiers: Leukocytosis type: other Qualified Code(s): D72.828 - Other elevated white blood cell count Chronic back pain Qualifiers: Back pain location: low back pain Back pain laterality: bilateral Sciatica presence: without sciatica Qualified Code(s): M54.5 - Low back pain; G89.29 - Other chronic pain Disposition: OTHER Referrals: ROSLYN TOLEDO MD [Primary Care Provider] - Follow up as needed
[2020-05-02] MEDS ORDERED: OXYCODONE HCL IR 5 MG TABLET PO ONE (19:33)
--- NOTE | 2020-05-02 21:45 | RADIOLOGY REPORT (SQ) ---
EXAM DESCRIPTION: CT ABD/PELVIS WITH IV ONLY CLINICAL HISTORY: 79 years Female, lower abd pain, eval diverticulitis COMPARISON: None. TECHNIQUE: Axial images of the abdomen and pelvis were performed utilizing intravenous contrast, with sagittal and coronal reformatted images. This exam was performed according to our departmental dose-optimization program which includes use of Automated Exposure Control, adjustment of the mA and/or kV according to patient size and/or use of iterative reconstruction technique. FINDINGS: The common bile duct is dilated, measuring 8.7 mm. There is a rounded soft tissue density structure in the most distal common bile duct, measuring 1.2 cm in diameter. No evidence of appendicitis. No evidence of bowel obstruction. No evidence of diverticulitis. There is no significant radiographic abnormality of the liver, spleen, pancreas, adrenal glands or kidneys. There are small bilateral renal cysts No free air or free fluid. IMPRESSION: Dilated common bile duct, with a 1.2 cm soft tissue density structure in the region of the most distal common bile duct. Diagnostic possibilities include bile duct stone and bile duct neoplasm.
[2020-05-02] MEDS ORDERED: MAGNESIUM CITRATE 296 ML BOTTLE PO ONE (22:38)
[2020-05-03] MEDS ORDERED: HALOPERIDOL LACTATE INJ 5 MG/1 ML VIAL IV ONE (02:02)
[2020-05-03] MEDS ORDERED: PIPERACILLIN/TAZOBACTAM 3.375 GM VIAL IV ONE ×2 (03:29→10:28)
[2020-05-03 09:16] LABS: APPEARANCE,URINE CLEAR; BILIRUBIN,URINE NEGATIVE (NEGATIVE); COLOR,URINE COLORLESS; GLUCOSE, URINE NEGATIVE (NEGATIVE); KETONES,URINE NEGATIVE (NEGATIVE); PROTEIN,URINE NEGATIVE (NEGATIVE); URINE SPECIFIC GRAVITY 1.012
[2020-05-03 09:17] LABS: LEUKOCYTE ESTERASE,URINE NEGATIVE (NEGATIVE); NITRITE,URINE NEGATIVE (NEGATIVE); UROBILINOGEN,URINE NEGATIVE mg/dL (<2.0)
--- NOTE | 2020-05-03 09:19 | RADIOLOGY REPORT (SQ) ---
EXAM DESCRIPTION: MRI ABDOMEN WITHOUT IMAGES COMPLETED DATE/TIME: 05/03/2020 8:32 am REASON FOR STUDY: MRCP, dilated CBD COMPARISON: CT 05/02/2020 TECHNIQUE: Noncontrast MRCP. Source and MIP images reviewed. LIMITATIONS: None. FINDINGS: GALLBLADDER: Normal. INTRAHEPATIC DUCTS: Nondilated. EXTRAHEPATIC DUCTS: Dilated common bile duct similar appearance to the CT. There is abrupt filling d efect in the distal common bile duct. PANCREAS: Generally homogeneous, no gross mass or significant signal alteration. No surrounding infl ammatory changes or fluid. Pancreatic duct is normal. LIVER, SPLEEN, KIDNEYS, ADRENALS: No significant abnormality. VESSELS: No evidence of aneurysm. Grossly appropriate flow voids in the major vascular structures. LUNG BASES: Grossly clear. OTHER: No other significant finding. IMPRESSION: Abnormal distal common bile duct consistent with common bile duct stone, mass, or strict ure. TECHNICAL DOCUMENTATION: JOB ID: [id number] 2010 [employer]- All Rights Reserved Reading location - IP/workstation name: [email or web address]
[2020-05-03] MEDS ORDERED: HYDROMORPHONE HCL INJ/PF 2 MG/ML AMPULE IV ONE (10:26)
[2020-05-03] MEDS ORDERED: ONDANSETRON HCL INJ/PF 4 MG/2 ML SDV IV ONE (10:26)
--- NOTE | 2020-05-03 13:11 | PDOC CONSULTATION ---
Consultation Consult Date: 05/03/20 Attending physician:: DERECK VILLASEÑOR Provider Consulted: GUILLERMO CUEVAS Consult reason:: Common bile duct abnormality History of Present Illness Admission Date/PCP: ROSLYN TOLEDO MD History of Present Illness: ALANA ROMERO is a 79 year old female 79-year-old white female with a long history of chronic abdominal pain, constipa tion, who presents emergency department complaining of abdominal pain, back pain. Work-up included CBC showing a leukocytosis 16,000, normal liver function studies. CT scan of the abdomen and pelvis interpreted as distal common bile duct obstruction, with intraluminal mass. Sequential MRCP interpreted as dilated common bile duct at 9 mm, with distal bile duct tapering. Surgery was consulted for opinion. Patient examined in room 14 emergency department, [facility], complaining of no abdominal pain at time of this evaluation. Past Medical History Cardiac Medical History: Reports: Hyperlipidema, Hypertension Pulmonary Medical History: Reports: Chronic Obstructive Pulmonary Disease (COPD) Endocrine Medical History: Reports: Diabetes Mellitus Type 2 - "borderline" Malignancy Medical History: Reports: Cervical Cancer - uterine cancer GI Medical History: Reports: Gastroesophageal Reflux Disease Musculoskeltal Medical History: Reports: Arthritis - back, shoulders, and neck Psychiatric Medical History: Reports: Bipolar Disorder, Depression Hematology: Denies: Anemia, Bleeding Tendencies Past Surgical History Past Surgical History: Reports: Section, Hysterectomy, Orthopedic Surgery - L shoulder, Tubal Ligation Social History Information Source: Patient Smoking Status: Unknown if Ever Smoked Frequency of Alcohol Use: None Hx Recreational Drug Use: No Drugs: None Hx Prescription Drug Abuse: No Family History Family History: None, Reviewed & Not Pertinent Parental Family History Reviewed: No Children Family History Reviewed: No Sibling(s) Family History Reviewed.: No Medication/Allergy Home Medications: Megestrol Acetate [Megace Rika 400 mg/10 ml Udcup] 10 ml PO BID 11/23/19 Dapagliflozin Propanediol [Farxiga] 10 mg PO DAILY #90 tablet 11/24/19 Furosemide [Lasix 20 mg Tablet] 20 mg PO QAM #10 tablet 01/06/20 Metolazone [Zaroxolyn 5 mg Tablet] 5 mg PO DAILY 03/02/20 Mirtazapine 45 mg PO QHS 03/02/20 Omeprazole 20 mg PO DAILY 03/02/20 Potassium Chloride 20 meq PO DAILY 03/02/20 Pramipexole Di-HCl [Mirapex 0.5 Mg Tablet] 0.5 mg PO TID 03/02/20 Tramadol HCl [Ultram 50 mg Tablet] 50 mg PO Q6HP PRN 03/02/20 Tramadol HCl [Ultram 50 mg Tablet] 50 mg PO Q4HP PRN #12 tab 04/26/20 Allergies/Adverse Reactions: No Known Allergies Allergy (Verified 03/30/20 14:03) Review of Systems Constitutional: PRESENT: as per HPI Eyes: ABSENT: visual disturbances Ears: ABSENT: hearing changes Gastrointestinal: PRESENT: other - Chronic constipation Physical Exam Vital Signs: Temp Pulse Resp BP Pulse Ox 98.1 F 117 H 19 106/90 H 98 05/03/20 12:01 05/02/20 15:46 05/03/20 12:01 05/03/20 12:01 05/03/20 12:01 Intake & Output 05/02/20 05/03/20 05/04/20 06:59 06:59 06:59 Weight 72.6 kg General appearance: PRESENT: no acute distress Head exam: PRESENT: normocephalic Mouth exam: PRESENT: dry mucosa Neck exam: PRESENT: full ROM Respiratory exam: PRESENT: rhonchi Cardiovascular exam: PRESENT: RRR Pulses: PRESENT: normal carotid pulses, normal radial pulses GI/Abdominal exam: PRESENT: other - The abdomen is soft, no peritoneal signs no rigidity. Rectal exam: PRESENT: deferred - Not performed Extremities exam: PRESENT: pedal edema - +1 edema Neurological exam: PRESENT: oriented to person, oriented to place, oriented to time, oriented to situation Psychiatric exam: PRESENT: appropriate affect Skin exam: PRESENT: other - No jaundice Results Laboratory Results: 05/02/20 17:43 05/02/20 17:43 05/02/20 05/02/20 05/03/20 17:43 17:43 08:05 WBC 16.8 H RBC 5.12 Hgb 13.3 Hct 39.3 MCV 77 L MCH 26.1 L MCHC 34.0 RDW 17.9 H Plt Count 419 Seg Neutrophils % 84.7 H Sodium 131.3 L Potassium 3.6 Chloride 90 L Carbon Dioxide 29 Anion Gap 12 BUN 20 Creatinine 0.66 Est GFR ( Amer) > 60 Glucose 136 H Calcium 10.1 Magnesium 1.2 L* Total Bilirubin 0.8 AST 37 H Alkaline Phosphatase 92 Total Protein 7.8 Albumin 4.3 Lipase 36.6 Urine Color COLORLESS Urine Appearance CLEAR Urine pH 8.0 Ur Specific [place] 1.012 Urine Protein NEGATIVE Urine Glucose (UA) NEGATIVE Urine Ketones NEGATIVE Urine Blood NEGATIVE Urine Nitrite NEGATIVE Ur Leukocyte Esterase NEGATIVE Urine WBC (Auto) 0 Urine RBC (Auto) 0 Impressions: KUB X-Ray 05/02/20 16:32 IMPRESSION: 1. NO RADIOGRAPHIC EVIDENCE FOR ACUTE ABDOMINAL DISEASE. 2. Stable right nephrolithiasis. Abdomen/Pelvis CT 05/02/20 19:30 IMPRESSION: Dilated common bile duct, with a 1.2 cm soft tissue density structure in the region of the most distal common bile duct. Diagnostic possibilities include bile duct stone and bile duct neoplasm. Abdomen MRI 05/03/20 00:00 IMPRESSION: Abnormal distal common bile duct consistent with common bile duct stone, mass, or stricture. Assessment & Plan - Diagnosis (1) Common bile duct dilation Is this a current diagnosis for this admission?: Yes Plan: Impression: Radiograph interpretation of abnormal common bile duct, possible intraluminal mass. No abdominal pain at time of this exam, normal liver function studies; leukocytosis with left shift of unclear etiology Plan: 1. I personally reviewed patient's imaging from September 2019, in April 2020, and reviewed with Dr. Guillermo Jacobs, radiologist. CT scan and MRI showed no evidence of inflammation, intra or extrahepatic ductal dilatation, pancreatitis. It is unclear if patient has an intraluminal distal common bile duct defect such as a stone or mass. In light of normal liver function studies, it is unlikely patient has a functional obstruction. 2. I discussed with patient the findings. She states she was seen by a specialist, who may have been Dr. Phil Wallis, who patient states performed a upper endoscopy. Again no records available for verification. 3. Patient to be admitted to the care of Dr. Toledo for management of leukocytosis. Patient may have a diet. 4. At this point I do not think any further intervention is indicated at this time regarding the hepatobiliary system. Evaluation of the previous endoscopic procedures including ERCP may be of value. Surgery will sign off at this time. Please reconsult if clinically indicated. (2) Chronic back pain Qualifiers: Back pain location: low back pain Back pain laterality: bilateral Sciatica presence: without sciatica Qualified Code(s): M54.5 - Low back pain; G89.29 - Other chronic pain Is this a current diagnosis for this admission?: Yes (3) Bipolar 1 disorder Is this a current diagnosis for this admission?: Yes (4) Generalized osteoarthritis Is this a current diagnosis for this admission?: Yes - Time Time Spent: 30 to 50 Minutes Smoking Cessation Education: 3 to 10 minutes Medications reviewed and adjusted accordingly: Yes Anticipated discharge: Home
[2020-05-03] MEDS ORDERED: TEMAZEPAM 7.5 MG CAPSULE PO PRN (15:52)
[2020-05-03] MEDS ORDERED: GLUCAGON,HUMAN RECOMB 1 MG INJ IM PRN (15:57)
[2020-05-03] MEDS ORDERED: DEXTROSE 40% GEL 15 GM TUBE PO PRN ×2 (15:57)
[2020-05-03] MEDS ORDERED: DEXTROSE 50%-WATER 25 GM/50 ML DISP.SYRIN IV PRN ×2 (15:57)
[2020-05-03] MEDS: INSULIN LISPRO 100 UNIT/ML 3 ML VIAL SUBCUT SCH ×2 (16:39→21:42)
[2020-05-03] MEDS: NORMAL SALINE 1000 ML 1,000 ML IV PRN (16:56)
[2020-05-03] MEDS: HYDROMORPHONE HCL INJ/PF 2 MG/ML AMPULE IV PRN ×2 (16:56→21:41)
[2020-05-03] MEDS: ENOXAPARIN SODIUM INJ 40 MG/0.4 ML DISP.SYRIN SUBCUT SCH (16:56)
--- NOTE | 2020-05-03 17:09 | PDOC H&P ---
History of Present Illness Admission Date/PCP: 05/03/20 14:10 ROSLYN TOLEDO MD History of Present Illness: ALANA ROMERO is a 79 year old female, She is well-known to me, she has type 2 diabetes mellitus, 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 There is a rounded soft tissue density structure in the most distal common bile duct, measuring 1.2 cm in diameter, no evidence of appendicitis. No evidence of bowel obstruction. No evidence of diverticulitis there is no significant radiographic normality of the liver, spleen, pancreas, kidney, adrenal glands. There are small bilateral renal cyst no free air or free fluid impression was that there was dilated common bile duct, with a 1.2 cm soft tissue density structure in the region of the most distal common bile duct, the differential diagnosis includes bile duct stone and bile duct neoplasm. MRCP was ordered it demonstrated dilated common bile duct there is abrupt filli ng defect the distal common bile duct the intrahepatic ducts were not dilated, the blood work that was done did not reveal any obstructive pattern of the liver enzymes, alkaline phosphatase, the total bilirubin was normal but she was found to have profound leukocytosis, the urinalysis was normal, chest x-ray did not show pneumonia. Past Medical History Cardiac Medical History: Reports: Hyperlipidema, Hypertension Pulmonary Medical History: Reports: Chronic Obstructive Pulmonary Disease (COPD) Endocrine Medical History: Reports: Diabetes Mellitus Type 2 - "borderline" Malignancy Medical History: Reports: Cervical Cancer - uterine cancer GI Medical History: Reports: Gastroesophageal Reflux Disease Musculoskeltal Medical History: Reports: Arthritis - back, shoulders, and neck Psychiatric Medical History: Reports: Bipolar Disorder, Depression Past Surgical History Past Surgical History: Reports: Section, Hysterectomy, Orthopedic Surgery - L shoulder, Tubal Ligation Social History Smoking Status: Former Smoker Frequency of Alcohol Use: None Hx Recreational Drug Use: No Drugs: None Hx Prescription Drug Abuse: No Family History Family History: None, Reviewed & Not Pertinent Parental Family History Reviewed: Yes Children Family History Reviewed: Yes Sibling(s) Family History Reviewed.: Yes Medication/Allergy Home Medications: Metolazone [Zaroxolyn 5 mg Tablet] 5 mg PO DAILY 03/02/20 Mirtazapine 45 mg PO QHS 03/02/20 Omeprazole 20 mg PO DAILY 03/02/20 Potassium Chloride 20 meq PO DAILY 03/02/20 Pramipexole Di-HCl [Mirapex 0.5 Mg Tablet] 0.5 mg PO TID 03/02/20 Tramadol HCl [Ultram 50 mg Tablet] 50 mg PO Q4HP PRN #12 tab MDD FILLED 04/30 FOR 2 DAY SUPPLY 04/26/20 Acetaminophen with Codeine [Tylenol #3 Tablet] 1 each PO Q8HP PRN 05/03/20 Brexpiprazole [Rexulti] 2 mg PO DAILY 05/03/20 Furosemide [Lasix 40 mg Tablet] 40 mg PO BID 05/03/20 Ondansetron [Ondansetron Odt] 8 mg PO BIDP PRN 05/03/20 Allergies/Adverse Reactions: No Known Allergies Allergy (Verified 03/30/20 14:03) Review of Systems Constitutional: ABSENT: chills, fever(s), headache(s), weight gain, weight loss Eyes: ABSENT: visual disturbances Ears: ABSENT: hearing changes Cardiovascular: ABSENT: chest pain, dyspnea on exertion, edema, orthropnea, palpitations Respiratory: ABSENT: cough, hemoptysis Gastrointestinal: PRESENT: abdominal pain, constipation, hematochezia Genitourinary: ABSENT: dysuria, hematuria Musculoskeletal: ABSENT: joint swelling Integumentary: ABSENT: rash, wounds Neurological: ABSENT: abnormal gait, abnormal speech, confusion, dizziness, foca l weakness, syncope Psychiatric: ABSENT: anxiety, depression, homidical ideation, suicidal ideation Endocrine: ABSENT: cold intolerance, heat intolerance, menstrual abnormalities, polydipsia, polyuria Hematologic/Lymphatic: ABSENT: easy bleeding, easy bruising, lymphadenopathy Physical Exam Vital Signs: Temp Pulse Resp BP Pulse Ox 97.7 F 88 19 165/81 H 95 05/03/20 16:05 05/03/20 16:05 05/03/20 16:05 05/03/20 16:05 05/03/20 16:05 Intake & Output 05/02/20 05/03/20 05/04/20 06:59 06:59 06:59 Weight 72.6 kg 72.3 kg General appearance: PRESENT: no acute distress Head exam: PRESENT: atraumatic, normocephalic Eye exam: PRESENT: conjunctiva pink, EOMI, PERRLA Ear exam: PRESENT: normal external ear exam Mouth exam: PRESENT: moist, tongue midline Neck exam: PRESENT: full ROM Respiratory exam: PRESENT: clear to auscultation isak Cardiovascular exam: PRESENT: RRR, +S1, +S2 Pulses: PRESENT: normal dorsalis pedis pul, +2 pedal pulses bilateral Vascular exam: PRESENT: normal capillary refill GI/Abdominal exam: PRESENT: normal bowel sounds, soft Rectal exam: PRESENT: deferred Neurological exam: PRESENT: alert, CN II-XII grossly intact Psychiatric exam: PRESENT: appropriate affect, normal mood Skin exam: PRESENT: dry, intact, warm Results Laboratory Results: 05/02/20 17:43 05/02/20 05/02/20 05/03/20 17:43 17:43 08:05 WBC 16.8 H RBC 5.12 Hgb 13.3 Hct 39.3 MCV 77 L MCH 26.1 L MCHC 34.0 RDW 17.9 H Plt Count 419 Seg Neutrophils % 84.7 H Sodium 131.3 L Potassium 3.6 Chloride 90 L Carbon Dioxide 29 Anion Gap 12 BUN 20 Creatinine 0.66 Est GFR ( Amer) > 60 Glucose 136 H Calcium 10.1 Magnesium 1.2 L* Total Bilirubin 0.8 AST 37 H Alkaline Phosphatase 92 Total Protein 7.8 Albumin 4.3 Lipase 36.6 Urine Color COLORLESS Urine Appearance CLEAR Urine pH 8.0 Ur Specific [place] 1.012 Urine Protein NEGATIVE Urine Glucose (UA) NEGATIVE Urine Ketones NEGATIVE Urine Blood NEGATIVE Urine Nitrite NEGATIVE Ur Leukocyte Esterase NEGATIVE Urine WBC (Auto) 0 Urine RBC (Auto) 0 Impressions: KUB X-Ray 05/02/20 16:32 IMPRESSION: 1. NO RADIOGRAPHIC EVIDENCE FOR ACUTE ABDOMINAL DISEASE. 2. Stable right nephrolithiasis. Abdomen/Pelvis CT 05/02/20 19:30 IMPRESSION: Dilated common bile duct, with a 1.2 cm soft tissue density structure in the region of the most distal common bile duct. Diagnostic possibilities include bile duct stone and bile duct neoplasm. Abdomen MRI 05/03/20 00:00 IMPRESSION: Abnormal distal common bile duct consistent with common bile duct stone, mass, or stricture. Assessment & Plan - Diagnosis (1) Common bile duct mass Is this a current diagnosis for this admission?: Yes Plan: The MRCP on the CAT scan suggest abnormality of the common bile duct, I spoke to Dr. 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 Qualifiers: Diabetes mellitus prison insulin use: without prison use Qualified Code(s): E11.42 - Type 2 diabetes mellitus with diabetic polyneuropathy Is this a current diagnosis for this admission?: Yes Plan: Continue treatment with diabetes management - Time Time Spent: Greater than 70 Minutes Medications reviewed and adjusted accordingly: Yes Anticipated Discharge Disposition: Home, Self Care Anticipated Discharge Timeframe: within 72 hours - Inpatient Certification Based on my medical assessment, after consideration of the patient's comorbidities, presenting symptoms, or acuity I expect that the services needed warrant INPATIENT care.: Yes I certify that my determination is in accordance with my understanding of Medicare's requirements for reasonable and necessary INPATIENT services [42 CFR 412.3e].: Yes
[2020-05-03 17:33] LABS: ALBUMIN 3.5 g/dL (3.5-5.0); ALKALINE PHOSPHATASE 63 U/L (38-126); ANION GAP 9 (5-19); ASPARTATE AMINO TRANSFERASE 45 U/L (14-36); BILIRUBIN,DIRECT 0.3 mg/dL (0.0-0.4); BLOOD UREA NITROGEN 12 mg/dL (7-20); C-REACTIVE PROTEIN 60.1 mg/L (<10.0); CALCIUM 8.7 mg/dL (8.4-10.2); CARBON DIOXIDE 31 mmol/L (22-30); CHLORIDE 94 mmol/L (98-107); CREATINE KINASE 68 U/L (30-135); GLUCOSE 156 mg/dL (75-110); POTASSIUM 3.7 mmol/L (3.6-5.0); TOTAL PROTEIN 6.5 g/dL (6.3-8.2)
[2020-05-03 18:42] LABS: ABSOLUTE BASOPHILS # (AUTO) 0.1 10^3/uL (0.0-0.2); ABSOLUTE EOSINOPHILS # (AUTO) 0.2 10^3/uL (0.0-0.6); ABSOLUTE LYMPHOCYTES (AUTO) 1.8 10^3/uL (0.5-4.7); ABSOLUTE MONOCYTES (AUTO) 0.8 10^3/uL (0.1-1.4); ABSOLUTE NEUT (AUTO) 6.6 10^3/uL (1.7-8.2); BASOPHILS % (AUTO) 0.8 % (0-2); EOSINOPHILS % (AUTO) 1.9 % (0-6); HEMATOCRIT 35.7 % (36.0-47.0); HEMOGLOBIN 11.9 g/dL (12.0-15.5); LYMPHOCYTES % (AUTO) 18.7 % (13-45); MEAN CORPUSCULAR HEMOGLOBIN 25.7 pg (27.0-33.4); MEAN CORPUSCULAR HGB CONC 33.4 g/dL (32.0-36.0); MEAN CORPUSCULAR VOLUME 77 fl (80-97); MONOCYTES % (AUTO) 8.8 % (3-13); RED BLOOD COUNT 4.64 10^6/uL (3.72-5.28); RED CELL DISTRIBUTION WIDTH 17.9 % (11.5-14.0); SEGMENTED NEUTROPHILS % (AUTO) 69.8 % (42-78); TOTAL CELLS COUNTED % (AUTO) 100 %; WHITE BLOOD COUNT 9.5 10^3/uL (4.0-10.5)
[2020-05-03 18:45] LABS: INTERNATIONAL RATION (INR) 1.18; PROTHROMBIN TIME 15.2 SEC (11.4-15.4)
[2020-05-03 18:46] LABS: FIBRINOGEN 518 mg/dL (209-497); PARTIAL THROMBOPLASTIN TIME 30.4 SEC (23.5-35.8)
[2020-05-03 18:59] LABS: PLATELET COUNT 317 10^3/uL (150-450)
[2020-05-03] MEDS: AMPICILLIN SODIUM/SULBACTAM NA 3 GM in NORMAL SALINE 100 ML IV SCH (19:30)
[2020-05-04] MEDS: AMPICILLIN SODIUM/SULBACTAM NA 3 GM in NORMAL SALINE 100 ML IV SCH ×5 (02:08→23:07)
[2020-05-04] MEDS: HYDROMORPHONE HCL INJ/PF 2 MG/ML AMPULE IV PRN ×6 (02:18→23:36)
[2020-05-04] MEDS: INSULIN LISPRO 100 UNIT/ML 3 ML VIAL SUBCUT SCH ×4 (10:11→22:38)
[2020-05-04] MEDS: ENOXAPARIN SODIUM INJ 40 MG/0.4 ML DISP.SYRIN SUBCUT SCH (10:14)
[2020-05-04] MEDS: NORMAL SALINE 1000 ML 1,000 ML IV PRN (10:41)
[2020-05-04] MEDS ORDERED: (PENDING PHARMACY ID) (Omeprazole [Omeprazole] 20 MG Capsule.Dr) PO SCH (18:45)
[2020-05-04] MEDS ORDERED: BREXPIPRAZOLE 2 MG PO SCH (18:45)
[2020-05-04] MEDS ORDERED: PANTOPRAZOLE SODIUM 20 MG TABLET.DR PO ONE (19:00)
[2020-05-04] MEDS ORDERED: PRAMIPEXOLE DI-HCL 0.5 MG TABLET PO ONE (19:00)
--- NOTE | 2020-05-04 20:55 | PDOC PROGRESS REPORT ---
Subjective Date:: 05/04/20 Subjective:: Patient was admitted yesterday she was admitted primarily because of a questionable mass in the distal common bile duct associated with leukocytosis, she was empirically started on IV antibiotic, the white blood cell count on today's lab work is decreased compared to yesterday when it was increased Reason For Visit: COMMON BILE DUCT DILATION Physical Exam Vital Signs: Temp Pulse Resp BP Pulse Ox 99.1 F 98 18 153/54 H 96 05/04/20 14:51 05/04/20 14:51 05/04/20 14:51 05/04/20 14:51 05/04/20 14:51 Intake & Output 05/03/20 05/04/20 05/05/20 06:59 06:59 06:59 Intake Total 760 2352 Balance 760 2352 Weight 72.6 kg 72.3 kg General appearance: PRESENT: no acute distress Eye exam: PRESENT: PERRLA Respiratory exam: PRESENT: clear to auscultation isak Cardiovascular exam: PRESENT: +S1, +S2 GI/Abdominal exam: PRESENT: soft Neurological exam: PRESENT: alert Results Laboratory Results: 05/03/20 17:55 05/03/20 16:55 05/03/20 05/03/20 16:55 17:55 Creatine Kinase 68 Troponin I < 0.012 Impressions: KUB X-Ray 05/02/20 16:32 IMPRESSION: 1. NO RADIOGRAPHIC EVIDENCE FOR ACUTE ABDOMINAL DISEASE. 2. Stable right nephrolithiasis. Abdomen/Pelvis CT 05/02/20 19:30 IMPRESSION: Dilated common bile duct, with a 1.2 cm soft tissue density structure in the region of the most distal common bile duct. Diagnostic possibilities include bile duct stone and bile duct neoplasm. Abdomen MRI 05/03/20 00:00 IMPRESSION: Abnormal distal common bile duct consistent with common bile duct stone, mass, or stricture. Assessment & Plan - Diagnosis (1) Common bile duct mass Is this a current diagnosis for this admission?: Yes Plan: She was admitted primarily because of a questionable mass in the distal common bile duct associated with leukocytosis.She was empirically started on IV antibiotic that will cover potential GI pathogens I also discussed her condition with Dr. 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
[2020-05-04] MEDS ORDERED: PRAMIPEXOLE DI-HCL 0.5 MG TABLET ONE (21:10)
[2020-05-04] MEDS ORDERED: PANTOPRAZOLE SODIUM 40 MG TABLET.DR PO ONE (22:40)
[2020-05-04] MEDS: MIRTAZAPINE 15 MG TABLET PO SCH (23:08)
[2020-05-05] MEDS: HYDROMORPHONE HCL INJ/PF 2 MG/ML AMPULE IV PRN ×5 (03:36→20:46)
[2020-05-05] MEDS: PANTOPRAZOLE SODIUM 20 MG TABLET.DR PO SCH (05:07)
[2020-05-05] MEDS: AMPICILLIN SODIUM/SULBACTAM NA 3 GM in NORMAL SALINE 100 ML IV SCH ×4 (05:07→23:28)
[2020-05-05] MEDS: NORMAL SALINE 1000 ML 1,000 ML IV PRN ×2 (08:19→23:31)
[2020-05-05] MEDS: INSULIN LISPRO 100 UNIT/ML 3 ML VIAL SUBCUT SCH ×4 (10:54→22:43)
[2020-05-05] MEDS: ENOXAPARIN SODIUM INJ 40 MG/0.4 ML DISP.SYRIN SUBCUT SCH (10:57)
[2020-05-05] MEDS: PRAMIPEXOLE DI-HCL 0.5 MG TABLET PO SCH ×3 (10:58→20:06)
--- NOTE | 2020-05-05 18:08 | PDOC PROGRESS REPORT ---
Subjective Date:: 05/05/20 Subjective:: she was admitted primarily because of a questionable mass in the distal common bile duct associated with leukocytosis, she was empirically started on IV antibiotic Reason For Visit: COMMON BILE DUCT DILATION Physical Exam Vital Signs: Temp Pulse Resp BP Pulse Ox 98.2 F 71 16 126/64 H 99 05/05/20 16:00 05/05/20 16:00 05/05/20 16:00 05/05/20 16:00 05/05/20 16:00 Intake & Output 05/04/20 05/05/20 05/06/20 06:59 06:59 06:59 Intake Total 760 3612 476 Output Total 350 Balance 760 3612 126 Weight 72.3 kg 72.3 kg General appearance: PRESENT: no acute distress Eye exam: PRESENT: PERRLA Respiratory exam: PRESENT: clear to auscultation isak Cardiovascular exam: PRESENT: +S1, +S2 Neurological exam: PRESENT: alert Results Laboratory Results: 05/03/20 17:55 05/03/20 16:55 05/04/20 22:24 Magnesium 1.5 L 05/03/20 05/03/20 16:55 17:55 Creatine Kinase 68 Troponin I < 0.012 Impressions: KUB X-Ray 05/02/20 16:32 IMPRESSION: 1. NO RADIOGRAPHIC EVIDENCE FOR ACUTE ABDOMINAL DISEASE. 2. Stable right nephrolithiasis. Abdomen/Pelvis CT 05/02/20 19:30 IMPRESSION: Dilated common bile duct, with a 1.2 cm soft tissue density structure in the region of the most distal common bile duct. Diagnostic possibilities include bile duct stone and bile duct neoplasm. Abdomen MRI 05/03/20 00:00 IMPRESSION: Abnormal distal common bile duct consistent with common bile duct stone, mass, or stricture. Assessment & Plan - Diagnosis (1) Common bile duct mass Is this a current diagnosis for this admission?: Yes Plan: She was admitted primarily because of a questionable mass in the distal common bile duct associated with leukocytosis.She was empirically started on IV antibiotic that will cover potential GI pathogens I also discussed her condition with Dr. 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
[2020-05-05] MEDS: MIRTAZAPINE 15 MG TABLET PO SCH (22:46)
[2020-05-06] MEDS: HYDROMORPHONE HCL INJ/PF 2 MG/ML AMPULE IV PRN ×6 (00:46→20:27)
[2020-05-06] MEDS: AMPICILLIN SODIUM/SULBACTAM NA 3 GM in NORMAL SALINE 100 ML IV SCH ×4 (05:00→23:51)
[2020-05-06] MEDS: PANTOPRAZOLE SODIUM 20 MG TABLET.DR PO SCH (05:00)
[2020-05-06] MEDS: INSULIN LISPRO 100 UNIT/ML 3 ML VIAL SUBCUT SCH ×4 (08:00→22:59)
[2020-05-06] MEDS: ENOXAPARIN SODIUM INJ 40 MG/0.4 ML DISP.SYRIN SUBCUT SCH (09:02)
[2020-05-06] MEDS: PRAMIPEXOLE DI-HCL 0.5 MG TABLET PO SCH ×3 (09:03→20:27)
[2020-05-06] MEDS ORDERED: HYDROMORPHONE HCL INJ/PF 2 MG/ML AMPULE IV PRN ×2 (16:23→16:30)
[2020-05-06] MEDS: NORMAL SALINE 1000 ML 1,000 ML IV PRN (16:51)
--- NOTE | 2020-05-06 18:16 | PDOC PROGRESS REPORT ---
Subjective Date:: 05/06/20 Subjective:: she was admitted primarily because of a questionable mass in the distal common bile duct associated with leukocytosis, she was empirically started on IV antibiotic Reason For Visit: COMMON BILE DUCT DILATION Physical Exam Vital Signs: Temp Pulse Resp BP Pulse Ox 98.3 F 87 17 147/74 H 97 05/06/20 15:38 05/06/20 15:38 05/06/20 15:38 05/06/20 15:38 05/06/20 15:38 Intake & Output 05/05/20 05/06/20 05/07/20 06:59 06:59 06:59 Intake Total 3612 2496 1336 Output Total 2200 1400 Balance 3612 296 -64 Weight 72.3 kg 72.3 kg General appearance: PRESENT: no acute distress Eye exam: PRESENT: PERRLA Respiratory exam: PRESENT: clear to auscultation isak Cardiovascular exam: PRESENT: +S1, +S2 GI/Abdominal exam: PRESENT: soft Neurological exam: PRESENT: alert Results Laboratory Results: 05/03/20 17:55 05/03/20 16:55 05/03/20 05/03/20 16:55 17:55 Creatine Kinase 68 Troponin I < 0.012 Impressions: KUB X-Ray 05/02/20 16:32 IMPRESSION: 1. NO RADIOGRAPHIC EVIDENCE FOR ACUTE ABDOMINAL DISEASE. 2. Stable right nephrolithiasis. Abdomen/Pelvis CT 05/02/20 19:30 IMPRESSION: Dilated common bile duct, with a 1.2 cm soft tissue density structure in the region of the most distal common bile duct. Diagnostic possibilities include bile duct stone and bile duct neoplasm. Abdomen MRI 05/03/20 00:00 IMPRESSION: Abnormal distal common bile duct consistent with common bile duct stone, mass, or stricture. Assessment & Plan - Diagnosis (1) Common bile duct mass Is this a current diagnosis for this admission?: Yes Plan: She was admitted primarily because of a questionable mass in the distal common bile duct associated with leukocytosis.She was empirically started on IV antibiotic that will cover potential GI pathogens I also discussed her condition with Dr. 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 Wallis is of the opinion that the findings on the imaging including MRCP and a CT scan of the abdomen and pelvis is most likely showing duodenal diverticulum and not a true mass of common bile duct but she will need ultrasound endoscopy for further diagnostic intervention (2) Leukocytosis Qualifiers: Leukocytosis type: unspecified Qualified Code(s): D72.829 - Elevated white blood cell count, unspecified Is this a current diagnosis for this admission?: Yes Plan: Improved (3) Type 2 diabetes mellitus with diabetic polyneuropathy Qualifiers: Diabetes mellitus intermodal truck driver insulin use: without snf use Qualified Code(s): E11.42 - Type 2 diabetes mellitus with diabetic polyneuropathy Is this a current diagnosis for this admission?: Yes Plan: Poor adherence to medication/noncompliance, consult dietary - Time Time Spent with patient: 25-34 minutes Level of Care: MEDICAL Medications reviewed and adjusted accordingly: Yes Anticipated discharge: Home Anticipated DC Timeframe: within 72 hours
[2020-05-06] MEDS: MIRTAZAPINE 15 MG TABLET PO SCH (22:21)
[2020-05-07] MEDS: HYDROMORPHONE HCL INJ/PF 2 MG/ML AMPULE IV PRN ×6 (00:35→21:56)
[2020-05-07] MEDS: PANTOPRAZOLE SODIUM 20 MG TABLET.DR PO SCH (05:05)
[2020-05-07] MEDS: AMPICILLIN SODIUM/SULBACTAM NA 3 GM in NORMAL SALINE 100 ML IV SCH ×4 (05:06→23:32)
[2020-05-07] MEDS: INSULIN LISPRO 100 UNIT/ML 3 ML VIAL SUBCUT SCH ×4 (09:40→21:55)
[2020-05-07] MEDS: NORMAL SALINE 1000 ML 1,000 ML IV PRN (11:45)
[2020-05-07] MEDS: PRAMIPEXOLE DI-HCL 0.5 MG TABLET PO SCH ×3 (11:46→18:22)
[2020-05-07] MEDS: ENOXAPARIN SODIUM INJ 40 MG/0.4 ML DISP.SYRIN SUBCUT SCH (11:47)
--- NOTE | 2020-05-07 20:25 | PDOC PROGRESS REPORT ---
Subjective Date:: 05/07/20 Subjective:: she was admitted primarily because of a questionable mass in the distal common bile duct associated with leukocytosis, she was empirically started on IV antibiotic Reason For Visit: COMMON BILE DUCT DILATION Physical Exam Vital Signs: Temp Pulse Resp BP Pulse Ox 98.2 F 79 18 138/85 H 97 05/07/20 15:30 05/07/20 15:30 05/07/20 15:30 05/07/20 15:30 05/07/20 15:30 Intake & Output 05/06/20 05/07/20 05/08/20 06:59 06:59 06:59 Intake Total 2496 3124 1590 Output Total 2200 1400 Balance 296 1724 1590 Weight 72.3 kg 72.3 kg General appearance: PRESENT: no acute distress Eye exam: PRESENT: PERRLA Respiratory exam: PRESENT: clear to auscultation isak Cardiovascular exam: PRESENT: +S1, +S2 GI/Abdominal exam: PRESENT: soft Neurological exam: PRESENT: alert, CN II-XII grossly intact Results Laboratory Results: 05/03/20 17:55 05/03/20 16:55 05/03/20 05/03/20 16:55 17:55 Creatine Kinase 68 Troponin I < 0.012 Impressions: KUB X-Ray 05/02/20 16:32 IMPRESSION: 1. NO RADIOGRAPHIC EVIDENCE FOR ACUTE ABDOMINAL DISEASE. 2. Stable right nephrolithiasis. Abdomen/Pelvis CT 05/02/20 19:30 IMPRESSION: Dilated common bile duct, with a 1.2 cm soft tissue density structure in the region of the most distal common bile duct. Diagnostic possibilities include bile duct stone and bile duct neoplasm. Abdomen MRI 05/03/20 00:00 IMPRESSION: Abnormal distal common bile duct consistent with common bile duct stone, mass, or stricture. Assessment & Plan - Diagnosis (1) Common bile duct mass Is this a current diagnosis for this admission?: Yes Plan: She was admitted primarily because of a questionable mass in the distal common bile duct associated with leukocytosis.She was empirically started on IV antibiotic that will cover potential GI pathogens I also discussed her condition with Dr. 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 Wallis is of the opinion that the findings on the imaging including MRCP and a CT scan of the abdomen and pelvis is most likely showing duodenal diverticulum and not a true mass of common bile duct but she will need ultrasound endoscopy for further diagnostic intervention (2) Leukocytosis Qualifiers: Leukocytosis type: unspecified Qualified Code(s): D72.829 - Elevated white blood cell count, unspecified Is this a current diagnosis for this admission?: Yes Plan: Improved (3) Type 2 diabetes mellitus with diabetic polyneuropathy Qualifiers: Diabetes mellitus intermodal customer service insulin use: without intermodal customer service use Qualified Code(s): E11.42 - Type 2 diabetes mellitus with diabetic polyneuropathy Is this a current diagnosis for this admission?: Yes Plan: Poor adherence to medication/noncompliance, consult dietary - Time Time Spent with patient: 25-34 minutes Level of Care: MEDICAL Medications reviewed and adjusted accordingly: Yes Anticipated discharge: Home Anticipated DC Timeframe: Other
[2020-05-07] MEDS: MIRTAZAPINE 15 MG TABLET PO SCH (21:55)
[2020-05-08] MEDS: HYDROMORPHONE HCL INJ/PF 2 MG/ML AMPULE IV PRN ×6 (01:37→23:36)
[2020-05-08] MEDS: PANTOPRAZOLE SODIUM 20 MG TABLET.DR PO SCH (05:38)
[2020-05-08] MEDS: AMPICILLIN SODIUM/SULBACTAM NA 3 GM in NORMAL SALINE 100 ML IV SCH ×3 (05:38→17:54)
[2020-05-08] MEDS: INSULIN LISPRO 100 UNIT/ML 3 ML VIAL SUBCUT SCH ×4 (08:04→21:09)
[2020-05-08] MEDS: NORMAL SALINE 1000 ML 1,000 ML IV PRN (08:08)
[2020-05-08] MEDS: ENOXAPARIN SODIUM INJ 40 MG/0.4 ML DISP.SYRIN SUBCUT SCH (10:03)
[2020-05-08] MEDS: PRAMIPEXOLE DI-HCL 0.5 MG TABLET PO SCH ×3 (11:48→17:54)
--- NOTE | 2020-05-08 19:49 | PDOC CONSULTATION ---
Consultation Consult Date: 05/08/20 Provider Consulted: AJ HATFIELD History of Present Illness Admission Date/PCP: 05/03/20 14:10 ROSLYN TOLEDO MD History of Present Illness: ALANA ROMERO is a 79 year old female Patient was admitted on 05/03/2020 with chronic abdominal pain and leukocytosis. In the emergency room she had a CAT scan that showed a mildly dilated common bile duct of 8.7mm and a rounded soft tissue density structure were noted in the distal common bile duct measuring 1.2 cm. She had an MRI on 05/03/2020 that again showed an abrupt filling defect in the distal common bile duct. Her intrahepatic ducts were not dilated and the pancreas was unremarkable. I reviewed a CAT scan she had in April 2018 that showed a 3.2 cm duodenal diverticulum. This diverticulum was also demonstrated on an upper GI series in April 2015. I reviewed her blood work over the last few years which showed a basically normal liver function tests over her many visits to the hospital. She was at the emergency room 24 times during 2019 and was admitted 8 times. Her AST was slightly elevated during this admission though she does have a history of fatty liver demonstrated on her imaging in 2017. Currently she denies abdominal pain. Her pain is mostly in the low back for which she takes analgesics. She denies nausea or vomiting. Past Medical History Cardiac Medical History: Reports: Hyperlipidema, Hypertension Pulmonary Medical History: Reports: Chronic Obstructive Pulmonary Disease (COPD) Endocrine Medical History: Reports: Diabetes Mellitus Type 2 - "borderline" Malignancy Medical History: Reports: Cervical Cancer - uterine cancer GI Medical History: Reports: Gastroesophageal Reflux Disease Musculoskeltal Medical History: Reports: Arthritis - back, shoulders, and neck Psychiatric Medical History: Reports: Bipolar Disorder, Depression Hematology: Denies: Anemia, Bleeding Tendencies Past Surgical History Past Surgical History: Reports: Section, Hysterectomy, Orthopedic Surgery - L shoulder, Tubal Ligation Social History Smoking Status: Former Smoker Electronic Cigarette use?: No Frequency of Alcohol Use: None Hx Recreational Drug Use: No Drugs: None Hx Prescription Drug Abuse: No Family History Family History: None, Reviewed & Not Pertinent Parental Family History Reviewed: No Children Family History Reviewed: NA Sibling(s) Family History Reviewed.: NA Medication/Allergy Home Medications: Metolazone [Zaroxolyn 5 mg Tablet] 5 mg PO DAILY 03/02/20 Mirtazapine 45 mg PO QHS 03/02/20 Omeprazole 20 mg PO DAILY 03/02/20 Potassium Chloride 20 meq PO DAILY 03/02/20 Pramipexole Di-HCl [Mirapex 0.5 Mg Tablet] 0.5 mg PO TID 03/02/20 Tramadol HCl [Ultram 50 mg Tablet] 50 mg PO Q4HP PRN #12 tab MDD FILLED 04/30 FOR 2 DAY SUPPLY 04/26/20 Acetaminophen with Codeine [Tylenol #3 Tablet] 1 each PO Q8HP PRN 05/03/20 Brexpiprazole [Rexulti] 2 mg PO DAILY 05/03/20 Furosemide [Lasix 40 mg Tablet] 40 mg PO BID 05/03/20 Ondansetron [Ondansetron Odt] 8 mg PO BIDP PRN 05/03/20 Allergies/Adverse Reactions: No Known Allergies Allergy (Verified 03/30/20 14:03) Review of Systems All systems: reviewed and no additional remarkable complaints except as stated Physical Exam Vital Signs: Temp Pulse Resp BP Pulse Ox 98.5 F 86 18 146/71 H 92 05/08/20 15:10 05/08/20 15:10 05/08/20 15:10 05/08/20 15:10 05/08/20 15:10 Intake & Output 05/07/20 05/08/20 05/09/20 06:59 06:59 06:59 Intake Total 3124 3190 836 Output Total 1400 600 Balance 1724 2590 836 Weight 72.3 kg 75.5 kg Exam: General: Patient is alert and looks well. She is obese and appeared to be in some distress from low back pain HEENT: There is no pallor or jaundice. PERRLA. Oropharynx normal Respiratory: No chest deformity. No respiratory distress. Chest wall palpitation was unremarkable. Breath sounds were normal Cardiovascular: Heart sounds 1 and 2 normal with no murmurs. Abdominal: Not distended. Soft and nontender. Liver and spleen not palpable. No ascites demonstrated. Bowel sounds active. Rectal examination was deferred. Extremities: No edema Neurological: Alert and oriented x4. Grossly nonfocal. Normal speech Skin: No significant rash Psychological: Normal affect Results Laboratory Results: 05/03/20 17:55 05/03/20 16:55 05/03/20 05/03/20 16:55 17:55 Creatine Kinase 68 Troponin I < 0.012 Impressions: KUB X-Ray 05/02/20 16:32 IMPRESSION: 1. NO RADIOGRAPHIC EVIDENCE FOR ACUTE ABDOMINAL DISEASE. 2. Stable right nephrolithiasis. Abdomen/Pelvis CT 05/02/20 19:30 IMPRESSION: Dilated common bile duct, with a 1.2 cm soft tissue density structure in the region of the most distal common bile duct. Diagnostic possibilities include bile duct stone and bile duct neoplasm. Abdomen MRI 05/03/20 00:00 IMPRESSION: Abnormal distal common bile duct consistent with common bile duct stone, mass, or stricture. Assessment & Plan - Diagnosis (1) Abnormal findings on imaging of biliary tract Is this a current diagnosis for this admission?: Yes Plan: She had a CAT scan and an MRI suggestive of a filling defect in the region of the distal common bile duct with no significant biliary dilation. Her common bile duct was only about 8 mm and her intrahepatic ducts were not dilated. Her symptoms and LFTs do not support a clinically significant biliary obstruction. I suspect the abnormality noted is related to the duodenal diverticulum previously demonstrated on the CAT scan and an upper GI series. She can be refe rred for an endoscopic ultrasound to further evaluate that area though I suspect the risk of an endoscopic ultrasound outweigh the benefit at this time. No further GI intervention is required. (2) Abnormal finding on GI tract imaging Is this a current diagnosis for this admission?: Yes (3) Chronic back pain Qualifiers: Back pain location: low back pain Back pain laterality: bilateral Sciatica presence: without sciatica Qualified Code(s): M54.5 - Low back pain; G89.29 - Other chronic pain Is this a current diagnosis for this admission?: Yes (5) Common bile duct dilation Is this a current diagnosis for this admission?: Yes
[2020-05-08] MEDS: MIRTAZAPINE 15 MG TABLET PO SCH (21:10)
--- NOTE | 2020-05-08 21:18 | PDOC PROGRESS REPORT ---
Subjective Date:: 05/08/20 Subjective:: she was admitted primarily because of a questionable mass in the distal common bile duct associated with leukocytosis, she was empirically started on IV antibiotic.She was seen by GI Dr., Dr. Wallis, no further GI intervention recommended Reason For Visit: COMMON BILE DUCT DILATION Physical Exam Vital Signs: Temp Pulse Resp BP Pulse Ox 98.5 F 86 18 146/71 H 92 05/08/20 20:38 05/08/20 15:10 05/08/20 15:10 05/08/20 15:10 05/08/20 15:10 Intake & Output 05/07/20 05/08/20 05/09/20 06:59 06:59 06:59 Intake Total 3124 3190 836 Output Total 1400 600 Balance 1724 2590 836 Weight 72.3 kg 75.5 kg General appearance: PRESENT: no acute distress Eye exam: PRESENT: PERRLA Respiratory exam: PRESENT: clear to auscultation isak Cardiovascular exam: PRESENT: +S1, +S2 GI/Abdominal exam: PRESENT: soft Neurological exam: PRESENT: alert, CN II-XII grossly intact Results Laboratory Results: 05/03/20 17:55 05/03/20 16:55 05/03/20 05/03/20 16:55 17:55 Creatine Kinase 68 Troponin I < 0.012 Impressions: KUB X-Ray 05/02/20 16:32 IMPRESSION: 1. NO RADIOGRAPHIC EVIDENCE FOR ACUTE ABDOMINAL DISEASE. 2. Stable right nephrolithiasis. Abdomen/Pelvis CT 05/02/20 19:30 IMPRESSION: Dilated common bile duct, with a 1.2 cm soft tissue density structure in the region of the most distal common bile duct. Diagnostic possibilities include bile duct stone and bile duct neoplasm. Abdomen MRI 05/03/20 00:00 IMPRESSION: Abnormal distal common bile duct consistent with common bile duct stone, mass, or stricture. Assessment & Plan - Diagnosis (1) Common bile duct mass Is this a current diagnosis for this admission?: Yes Plan: She was admitted primarily because of a questionable mass in the distal common bile duct associated with leukocytosis.She was empirically started on IV antibiotic that will cover potential GI pathogens I also discussed her condition with Dr. 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 Wallis is of the opinion that the findings on the imaging including MRCP and a CT scan of the abdomen and pelvis is most likely showing duodenal diverticulum and not a true mass of common bile duct but she will need ultrasound endoscopy for further diagnostic intervention (2) Leukocytosis Qualifiers: Leukocytosis type: unspecified Qualified Code(s): D72.829 - Elevated white blood cell count, unspecified Is this a current diagnosis for this admission?: Yes (3) Type 2 diabetes mellitus with diabetic polyneuropathy Qualifiers: Diabetes mellitus skilled nursing insulin use: without terminal computer operator use Qualified Code(s): E11.42 - Type 2 diabetes mellitus with diabetic polyneuropathy Is this a current diagnosis for this admission?: Yes Plan: Poor adherence to medication/noncompliance, consult dietary - Time Time Spent with patient: 25-34 minutes Level of Care: MEDICAL Anticipated discharge: Home
[2020-05-09] MEDS: PANTOPRAZOLE SODIUM 20 MG TABLET.DR PO SCH (05:34)
[2020-05-09] MEDS: HYDROMORPHONE HCL INJ/PF 2 MG/ML AMPULE IV PRN ×3 (05:34→17:25)
[2020-05-09] MEDS: NORMAL SALINE 1000 ML 1,000 ML IV PRN (05:36)
[2020-05-09] MEDS: INSULIN LISPRO 100 UNIT/ML 3 ML VIAL SUBCUT SCH ×3 (08:22→18:09)
[2020-05-09] MEDS: ENOXAPARIN SODIUM INJ 40 MG/0.4 ML DISP.SYRIN SUBCUT SCH (11:22)
[2020-05-09] MEDS: PRAMIPEXOLE DI-HCL 0.5 MG TABLET PO SCH ×3 (11:23→18:12)
[2020-05-09] MEDS ORDERED: ACETAMINOPHEN 325 MG TABLET ONE (13:46)
[2020-05-09] MEDS ORDERED: ONDANSETRON HCL INJ/PF 4 MG/2 ML SDV IV PRN (13:52)
[2020-05-09] MEDS ORDERED: ACETAMINOPHEN 325 MG TABLET PO PRN (14:14)
--- NOTE | 2020-05-09 17:12 | PDOC DISCHARGE SUMMARY ---
Impression - Admit/DC Date/PCP Admission Date/Primary Care Provider: 05/03/20 14:10 ROSLYN TOLEDO MD Discharge Date: 05/09/20 - Discharge Diagnosis (1) Abnormal findings on imaging of biliary tract Is this a current diagnosis for this admission?: Yes (2) Leukocytosis Is this a current diagnosis for this admission?: Yes (3) Type 2 diabetes mellitus with diabetic polyneuropathy Is this a current diagnosis for this admission?: Yes - Additional Information Referrals: ROSLYN TOLEDO MD [Primary Care Provider] - Follow up as needed Home Medications: Metolazone [Zaroxolyn 5 mg Tablet] 5 mg PO DAILY 03/02/20 Mirtazapine 45 mg PO QHS 03/02/20 Omeprazole 20 mg PO DAILY 03/02/20 Potassium Chloride 20 meq PO DAILY 03/02/20 Pramipexole Di-HCl [Mirapex 0.5 mg Tablet] 0.5 mg PO TID 03/02/20 Tramadol HCl [Ultram 50 mg Tablet] 50 mg PO Q4HP PRN #12 tab MDD FILLED 04/30 FOR 2 DAY SUPPLY 04/26/20 Acetaminophen with Codeine [Tylenol #3 Tablet] 1 each PO Q8HP PRN 05/03/20 Brexpiprazole [Rexulti] 2 mg PO DAILY 05/03/20 Furosemide [Lasix 40 mg Tablet] 40 mg PO BID 05/03/20 Ondansetron [Ondansetron Odt] 8 mg PO BIDP PRN 05/03/20 History of Present Illiness History of Present Illness: ALANA ROMERO is a 79 year old female, She is well-known to me, she has type 2 diabetes mellitus, 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 There is a rounded soft tissue density structure in the most distal common bile duct, measuring 1.2 cm in diameter, no evidence of appendicitis. No evidence of bowel obstruction. No evidence of diverticulitis there is no significant radiographic normality of the liver, spleen, pancreas, kidney, adrenal glands. There are small bilateral renal cyst no free air or free fluid impression was that there was dilated common bile duct, with a 1.2 cm soft tissue density structure in the region of the most distal common bile duct, the differential diagnosis includes bile duct stone and bile duct neoplasm. MRCP was ordered it demonstrated dilated common bile duct there is abrupt filling defect the distal common bile duct the intrahepatic ducts were not dilated, the blood work that was done did not reveal any obstructive pattern of the liver enzymes, alkaline phosphatase, the total bilirubin was normal but she was found to have profound leukocytosis, the urinalysis was normal, chest x-ray did not show pneumonia. Hospital Course Hospital Course: Patient was admitted for the management of abdominal findings on imaging of biliary tract that was felt to be a mass on CT scan and MRCP but there was no obstructive cholestasis, the LFTs did not demonstrate obstructive pattern in fact it was normal.There was associated leukocytosis so patient was admitted to the hospital for management she was empirically treated with IV antibiotic., She was seen in consultation by recruitment officer Dr. 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 which was demonstrated on previous CT imaging and also for upper endoscopy.It was felt that patient does not need any more further GI intervention Physical Exam Vital Signs: Temp Pulse Resp BP Pulse Ox 98.1 F 94 16 138/66 H 96 05/09/20 15:53 05/09/20 15:53 05/09/20 15:53 05/09/20 15:53 05/09/20 15:53 Intake & Output 05/08/20 05/09/20 05/10/20 06:59 06:59 06:59 Intake Total 3190 1836 Output Total 600 Balance 2590 1836 Weight 75.5 kg 75.5 kg General appearance: PRESENT: no acute distress Eye exam: PRESENT: PERRLA Respiratory exam: PRESENT: clear to auscultation isak Cardiovascular exam: PRESENT: +S1, +S2 GI/Abdominal exam: PRESENT: soft Neurological exam: PRESENT: alert Results Laboratory Results: WBC 9.5 10^3/uL (4.0-10.5) 05/03/20 17:55 RBC 4.64 10^6/uL (3.72-5.28) 05/03/20 17:55 Hgb 11.9 g/dL (12.0-15.5) L 05/03/20 17:55 Hct 35.7 % (36.0-47.0) L 05/03/20 17:55 MCV 77 fl (80-97) L 05/03/20 17:55 MCH 25.7 pg (27.0-33.4) L 05/03/20 17:55 MCHC 33.4 g/dL (32.0-36.0) 05/03/20 17:55 RDW 17.9 % (11.5-14.0) H 05/03/20 17:55 Plt Count 317 10^3/uL (150-450) 05/03/20 17:55 Lymph % (Auto) 18.7 % (13-45) 05/03/20 17:55 [place] % (Auto) 8.8 % (3-13) 05/03/20 17:55 Eos % (Auto) 1.9 % (0-6) 05/03/20 17:55 Baso % (Auto) 0.8 % (0-2) 05/03/20 17:55 Absolute Neuts (auto) 6.6 10^3/uL (1.7-8.2) 05/03/20 17:55 Absolute Lymphs (auto) 1.8 10^3/uL (0.5-4.7) 05/03/20 17:55 Absolute Monos (auto) 0.8 10^3/uL (0.1-1.4) 05/03/20 17:55 Absolute Eos (auto) 0.2 10^3/uL (0.0-0.6) 05/03/20 17:55 Absolute Basos (auto) 0.1 10^3/uL (0.0-0.2) 05/03/20 17:55 Seg Neutrophils % 69.8 % (42-78) 05/03/20 17:55 PT 15.2 SEC (11.4-15.4) 05/03/20 17:55 INR 1.18 05/03/20 17:55 APTT 30.4 SEC (23.5-35.8) 05/03/20 17:55 Fibrinogen 518 mg/dL (209-497) H 05/03/20 17:55 D-Dimer 0.90 ug/mL (0.00-0.50) H 05/03/20 17:55 Sodium 133.9 mmol/L (137-145) L 05/03/20 16:55 Potassium 3.7 mmol/L (3.6-5.0) 05/03/20 16:55 Chloride 94 mmol/L (98-107) L 05/03/20 16:55 Carbon Dioxide 31 mmol/L (22-30) H 05/03/20 16:55 Anion Gap 9 (5-19) 05/03/20 16:55 BUN 12 mg/dL (7-20) 05/03/20 16:55 Creatinine 0.59 mg/dL (0.52-1.25) 05/03/20 16:55 Est GFR ( Amer) > 60 (>60) 05/03/20 16:55 Est GFR (MDRD) Non-Af > 60 (>60) 05/03/20 16:55 Glucose 156 mg/dL (75-110) H 05/03/20 16:55 POC Glucose 105 mg/dL (70-110) 05/09/20 15:39 Hemoglobin A1c % 7.5 % (4.7-6.0) H 05/03/20 17:55 Calcium 8.7 mg/dL (8.4-10.2) 05/03/20 16:55 Magnesium 1.4 mg/dL (1.6-2.3) L 05/09/20 09:30 Ferritin 42.70 ng/mL (11.1-264.0) 05/03/20 16:55 Total Bilirubin 1.0 mg/dL (0.2-1.3) 05/03/20 16:55 Direct Bilirubin 0.3 mg/dL (0.0-0.4) 05/03/20 16:55 Neonat Total Bilirubin Not Reportable 05/03/20 16:55 Neonat Direct Bilirubin Not Reportable 05/03/20 16:55 Neonat Indirect Bili Not Reportable 05/03/20 16:55 AST 45 U/L (14-36) H 05/03/20 16:55 ALT 27 U/L (<35) 05/03/20 16:55 Alkaline Phosphatase 63 U/L (38-126) 05/03/20 16:55 Lactate Dehydrogenase 307 U/L (120-246) H 05/03/20 16:55 Creatine Kinase 68 U/L (30-135) 05/03/20 16:55 Troponin I < 0.012 ng/mL 05/03/20 17:55 C-Reactive Protein 60.1 mg/L (<10.0) H 05/03/20 16:55 Total Protein 6.5 g/dL (6.3-8.2) 05/03/20 16:55 Albumin 3.5 g/dL (3.5-5.0) 05/03/20 16:55 Lipase 36.6 U/L (23-300) 05/02/20 17:43 Urine Color COLORLESS 05/03/20 08:05 Urine Appearance CLEAR 05/03/20 08:05 Urine pH 8.0 (5.0-9.0) 05/03/20 08:05 Ur Specific [place] 1.012 05/03/20 08:05 Urine Protein NEGATIVE mg/dL (NEGATIVE) 05/03/20 08:05 Urine Glucose (UA) NEGATIVE mg/dL (NEGATIVE) 05/03/20 08:05 Urine Ketones NEGATIVE mg/dL (NEGATIVE) 05/03/20 08:05 Urine Blood NEGATIVE (NEGATIVE) 05/03/20 08:05 Urine Nitrite NEGATIVE (NEGATIVE) 05/03/20 08:05 Urine Bilirubin NEGATIVE (NEGATIVE) 05/03/20 08:05 Urine Urobilinogen NEGATIVE mg/dL (<2.0) 05/03/20 08:05 Ur Leukocyte Esterase NEGATIVE (NEGATIVE) 05/03/20 08:05 Urine WBC (Auto) 0 /HPF 05/03/20 08:05 Urine RBC (Auto) 0 /HPF 05/03/20 08:05 Urine Ascorbic Acid NEGATIVE (NEGATIVE) 05/03/20 08:05 05/03/20 17:55 Troponin I < 0.012 Impressions: KUB X-Ray 05/02/20 16:32 IMPRESSION: 1. NO RADIOGRAPHIC EVIDENCE FOR ACUTE ABDOMINAL DISEASE. 2. Stable right nephrolithiasis. Abdomen/Pelvis CT 05/02/20 19:30 IMPRESSION: Dilated common bile duct, with a 1.2 cm soft tissue density structure in the region of the most distal common bile duct. Diagnostic possibilities include bile duct stone and bile duct neoplasm. Abdomen MRI 05/03/20 00:00 IMPRESSION: Abnormal distal common bile duct consistent with common bile duct stone, mass, or stricture. Stroke Is this a Stroke Patient?: No Acute Heart Failure Is this a Heart Failure Patient?: No
[2020-05-09 19:28] VITALS: BP 142/68
== END 2020-05-09 18:10 | disposition home or self-care (01) | DRG 392 ==
LOC: ER 15:20 → EH 05-03 14:10 → 4N 05-03 15:54
PROVIDERS: ADMIT Internal Medicine; ATTEND Internal Medicine
DX: K57.10 Diverticulosis of small intestine without perforation or abscess without bleeding (principal); D72.829 Elevated white blood cell count, unspecified; E11.42 Type 2 diabetes mellitus with diabetic polyneuropathy; G89.29 Other chronic pain; M54.5 Low back pain; F31.9 Bipolar disorder, unspecified; M15.9 Polyosteoarthritis, unspecified; I10 Essential (primary) hypertension; E78.5 Hyperlipidemia, unspecified; R73.03 Prediabetes; K21.9 Gastro-esophageal reflux disease without esophagitis; Z79.899 Other long term (current) drug therapy; K59.09 Other constipation
CPT/HCPCS: 36415; 74018; 74177; 74181; 80053; 81001; 82550; 82728; 82962; 83036; 83615; 83690; 83735; 84484; 85025; 85379; 85384; 85610; 85730; 86140; 96365; 96366; 96375; 99285; J0295; J1170; J1630; J1650; J1815; J2405; J2543; J3490; J7030; J7050